=== PATIENT | male | born 1965 | race Caucasian/White ===

== ENCOUNTER 2019-12-12 08:53 | Inpatient (IN) | payer OTHER ==
[~2019-12-12] VITALS: Ht 177.8 cm; Wt 98.1 kg
[2019-12-12] MEDS ORDERED: FUROSEMIDE 40 MG/4 ML VIAL IV ONE (09:15)
[2019-12-12 09:49] LABS: Basophils # (auto) 0.1 10 ^3/uL (0-0.2); Basophils % (auto) 0.8 % (0.0-2.0); Eosinophils # (auto) 0.3 10 ^3/uL (0-0.8); Eosinophils % (auto) 3.2 % (0.0-7.0); Hematocrit 47.7 % (41.0-53.0); Hemoglobin 15.7 g/dL (13.5-17.5); Lymphocytes # (auto) 1.5 10 ^3/uL (0.4-5.4); Lymphocytes % (auto) 16.9 % (10.0-50.0); Mean Corpuscular Volume 94.1 fL (80.0-100.0); Monocytes # (auto) 0.7 10 ^3/uL (0-1.3); Monocytes % (auto) 7.4 % (0.0-12.0); Neutrophils # (auto) 6.4 10 ^3/uL (1.6-8.6); Neutrophils % (auto) 71.7 % (37.0-80.0); Platelet Count (auto) 184 10^3/uL (140-450); Red Blood Cells 5.07 10^6/uL (4.5-5.90); Red Cell Distribution Width 13.6 % (11.8-14.3); White Blood Cell 8.9 10^3/uL (4.4-10.8)
[2019-12-12 10:05] LABS: Potassium 3.6 mmol/L (3.5-5.1)
[2019-12-12 10:15] LABS: Albumin 3.5 g/dL (3.4-5.0); BUN/Creatinine Ratio 17.3; Bilirubin, Total 0.9 mg/dL (0.2-1.0); Calcium 8.2 mg/dL (8.5-10.1); Total Protein 7.2 g/dL (6.4-8.2)
[2019-12-12] MEDS ORDERED: cloNIDine HCL 0.1 MG TAB PO ONE (10:30)
[2019-12-12 12:16] LABS: Urine WBC None Seen /hpf (0 - 3)
[2019-12-12 12:30] LABS: Urine Bacteria FEW /hpf (None Seen); Urine Blood Negative /uL (Negative); Urine Specific Gravity 1.005 (1.001-1.035)
[2019-12-12 12:49] LABS: Amphetamine Screen, Urine POSITIVE (NEGATIVE); Barbiturate Scree,Urine NEGATIVE (NEGATIVE); Benzodiazephine Screen, Urine NEGATIVE (NEGATIVE); Cannabinoid Screen, Urine NEGATIVE (NEGATIVE); Cocaine Screen, Urine NEGATIVE (NEGATIVE); Phencyclidine Screen, Urine NEGATIVE (NEGATIVE)
[2019-12-12 12:57] LABS: Opiate Scree,Urine NEGATIVE (NEGATIVE)
[2019-12-12 13:19] LABS: Alcohol, Urine < 3.0 mg/dL (0-10)
[2019-12-12] MEDS ORDERED: DEXTROSE (50%) 50ML SYRG IV PRN (14:15)
[2019-12-12] MEDS ORDERED: levoFLOXacin 500MG 100 ML IV ONE (14:15)
[2019-12-12] MEDS ORDERED: PROMETHAZINE HCL 25 MG/ML 1ML IV PRN (14:15)
[2019-12-12] MEDS ORDERED: MORPHINE SULF INJ 2 MG/ML SYRINGE 1ML IV PRN (14:15)
[2019-12-12] MEDS ORDERED: LACTULOSE 20Gm/30ML SOLN PO PRN ×2 (14:15)
[2019-12-12] MEDS ORDERED: ACETAMINOPHEN 500 MG TAB PO PRN (14:15)
[2019-12-12] MEDS ORDERED: traMADol HCL 50 MG TAB PO PRN (14:15)
[2019-12-12] MEDS ORDERED: NITROGLYCERIN 0.4 MG SL TAB SL PRN (14:15)
[2019-12-12] MEDS ORDERED: ASPirin 81 mg TAB PO ONE (14:50)
[2019-12-12 16:54] VITALS: BP 159/96
[2019-12-12] MEDS: InsuLIN REG 1unit/0.01ml Soln (100units/ml) SC SCH ×2 (17:00→22:00)
[2019-12-12 17:05] VITALS: BP 159/96
[2019-12-12] MEDS ORDERED: LABETALOL HCL 5 MG/ML 4ML SYRINGE IV PRN (17:30)
[2019-12-12] MEDS: ACCU-CHEK COMFORT CURVE STRIP VI SCH ×2 (17:41→22:00)
[2019-12-12] MEDS ORDERED: METF-370 PO (18:15)
[2019-12-12 22:00] VITALS: BP 159/94
[2019-12-12] MEDS: SODIUM CHLOR 0.9% PF (SALINE LOCK) 10ML VIAL/SYR IV SCH (22:00)
[2019-12-12] MEDS: FAMOTIDINE 20 MG TAB PO SCH (22:00)
[2019-12-12] MEDS: ATORVASTATIN 20 MG TAB PO SCH (22:00)
[2019-12-12] MEDS: CARVEDILOL 3.125 MG TAB PO SCH (22:00)
[2019-12-12] MEDS: FUROSEMIDE 40 MG/4 ML VIAL IV SCH (22:00)
[2019-12-13] MEDS: SODIUM CHLOR 0.9% PF (SALINE LOCK) 10ML VIAL/SYR IV SCH ×3 (06:00→22:00)
[2019-12-13] MEDS: FUROSEMIDE 40 MG/4 ML VIAL IV SCH ×2 (06:00→17:58)
[2019-12-13 06:30] VITALS: BP 152/100
[2019-12-13] MEDS: InsuLIN REG 1unit/0.01ml Soln (100units/ml) SC SCH ×4 (06:52→22:00)
[2019-12-13] MEDS: ACCU-CHEK COMFORT CURVE STRIP VI SCH ×4 (06:52→22:00)
[2019-12-13 09:00] VITALS: BP 139/89
[2019-12-13] MEDS: ENOXAPARIN SOD 40 MG/0.4 ML SYRINGE SC SCH (10:00)
[2019-12-13] MEDS ORDERED: ENOXAPARIN SOD 40 MG/0.4 ML SYRINGE SC SCH (10:00)
[2019-12-13] MEDS: NITROGLYCERIN 0.2MG/HR TOPICAL PATCH TD SCH (10:00)
[2019-12-13] MEDS: FAMOTIDINE 20 MG TAB PO SCH ×2 (10:31→22:00)
[2019-12-13] MEDS: CARVEDILOL 3.125 MG TAB PO SCH ×2 (10:32→22:30)
[2019-12-13] MEDS: ENALAPRIL MALEATE 2.5 MG TAB PO SCH (10:32)
[2019-12-13] MEDS: ASPirin 81 mg TAB PO SCH (10:32)
[2019-12-13] MEDS: POTASSIUM CHL 20 Meq TABLET PO SCH (10:33)
[2019-12-13] MEDS: levoFLOXacin 500MG 100 ML IV SCH (12:24)
[2019-12-13 13:00] VITALS: BP 146/88
[2019-12-13 17:00] VITALS: BP 141/83
[2019-12-13 22:00] VITALS: BP 128/74
[2019-12-13] MEDS: ATORVASTATIN 20 MG TAB PO SCH (22:00)
[2019-12-14 05:48] VITALS: BP 156/93
[2019-12-14] MEDS: FUROSEMIDE 40 MG/4 ML VIAL IV SCH ×2 (05:58→17:17)
[2019-12-14] MEDS: SODIUM CHLOR 0.9% PF (SALINE LOCK) 10ML VIAL/SYR IV SCH ×3 (05:59→22:00)
[2019-12-14] MEDS: InsuLIN REG 1unit/0.01ml Soln (100units/ml) SC SCH ×4 (06:34→22:00)
[2019-12-14] MEDS: ACCU-CHEK COMFORT CURVE STRIP VI SCH ×4 (06:35→22:00)
[2019-12-14 08:56] VITALS: BP 155/93
[2019-12-14] MEDS: CARVEDILOL 3.125 MG TAB PO SCH ×2 (10:00→22:00)
[2019-12-14] MEDS: ENALAPRIL MALEATE 2.5 MG TAB PO SCH (10:00)
[2019-12-14] MEDS: NITROGLYCERIN 0.2MG/HR TOPICAL PATCH TD SCH (10:00)
[2019-12-14] MEDS: FAMOTIDINE 20 MG TAB PO SCH ×2 (10:00→22:00)
[2019-12-14] MEDS: ASPirin 81 mg TAB PO SCH (10:00)
[2019-12-14] MEDS: ENOXAPARIN SOD 40 MG/0.4 ML SYRINGE SC SCH (10:00)
[2019-12-14] MEDS: levoFLOXacin 500MG 100 ML IV SCH (10:00)
[2019-12-14] MEDS: POTASSIUM CHL 20 Meq TABLET PO SCH (10:00)
[2019-12-14 12:29] VITALS: BP 147/99
[2019-12-14 16:53] VITALS: BP 144/91
[2019-12-14 22:00] VITALS: BP 145/90
[2019-12-14] MEDS: ATORVASTATIN 20 MG TAB PO SCH (22:00)
[2019-12-15] MEDS: SODIUM CHLOR 0.9% PF (SALINE LOCK) 10ML VIAL/SYR IV SCH (06:00)
[2019-12-15] MEDS: FUROSEMIDE 40 MG/4 ML VIAL IV SCH (06:00)
[2019-12-15] MEDS: InsuLIN REG 1unit/0.01ml Soln (100units/ml) SC SCH (06:45)
[2019-12-15] MEDS: ACCU-CHEK COMFORT CURVE STRIP VI SCH (06:46)
[2019-12-15] MEDS ORDERED: IODIXANOL 320MG/ML 100ML BTL IV ONE (07:54)
[2019-12-15 09:00] VITALS: BP 142/93
== END 2019-12-15 11:00 | disposition left against medical advice (07) | DRG 194 ==
LOC: ER 08:53 → TELE 08:54 → TELE-WESTW 16:40
PROVIDERS: ADMIT Internal Medicine; ATTEND Internal Medicine
DX: I11.0 Hypertensive heart disease with heart failure (principal); E11.21 Type 2 diabetes mellitus with diabetic nephropathy; E11.51 Type 2 diabetes mellitus with diabetic peripheral angiopathy without gangrene; I50.43 Acute on chronic combined systolic (congestive) and diastolic (congestive) heart failure; E78.5 Hyperlipidemia, unspecified; J98.11 Atelectasis; F15.10 Other stimulant abuse, uncomplicated; E66.9 Obesity, unspecified; Z91.19 Patient's noncompliance with other medical treatment and regimen; F17.210 Nicotine dependence, cigarettes, uncomplicated; E11.65 Type 2 diabetes mellitus with hyperglycemia; I20.0 Unstable angina; Z53.29 Procedure and treatment not carried out because of patient's decision for other reasons; Z80.42 Family history of malignant neoplasm of prostate; Z82.49 Family history of ischemic heart disease and other diseases of the circulatory system; J18.9 Pneumonia, unspecified organism; Z68.28 Body mass index [BMI] 28.0-28.9, adult
CPT/HCPCS: 36415; 71045; 71046; 80053; 80307; 81001; 82550; 82962; 83036; 83880; 84484; 85025; 85379; 85652; 86141; 93005; 93926; 96365; 96366; 96375; 99291; G0378; J1956; Q9967

== ENCOUNTER 2020-02-18 14:45 | Emergency (ER) | payer OTHER ==
[~2020-02-18] VITALS: Ht 177.8 cm; Wt 90.7 kg
[~2020-02-18 14:45] MED LIST: METF-370 PO
[2020-02-18 15:33] VITALS: BP 154/86
[2020-02-18] MEDS ORDERED: BENZOCAINE (DENTAL) 20 % SPRAY 60ML MT ONE (16:15)
== END 2020-02-18 16:23 | disposition home or self-care (01) ==
LOC: ER 14:45
DX: K04.7 Periapical abscess without sinus (principal); K02.9 Dental caries, unspecified; E11.9 Type 2 diabetes mellitus without complications; I10 Essential (primary) hypertension; F17.210 Nicotine dependence, cigarettes, uncomplicated

== ENCOUNTER 2020-07-17 08:47 | Emergency (ER) | payer OTHER ==
[~2020-07-17] VITALS: Ht 177.8 cm; Wt 90.7 kg
[2020-07-17 08:50] VITALS: BP 173/97
[2020-07-17] MEDS ORDERED: ACETAMINOPHEN 325 MG TAB PO ONE (09:45)
[2020-07-17] MEDS ORDERED: cefTRIAXone SOD 1,000 MG VL IM ONE (09:45)
== END 2020-07-17 10:25 | disposition home or self-care (01) ==
LOC: ER 08:47
DX: L66.2 Folliculitis decalvans (principal); E11.9 Type 2 diabetes mellitus without complications; I10 Essential (primary) hypertension; F17.210 Nicotine dependence, cigarettes, uncomplicated
CPT/HCPCS: 96372; 99283; J0696

== ENCOUNTER 2021-01-20 14:27 | Inpatient (IN) | payer OTHER ==
[~2021-01-20] VITALS: Ht 177.8 cm; Wt 85.5 kg
[2021-01-20] MEDS ORDERED: ACETAMINOPHEN 325 MG TAB PO ONE (15:00)
[2021-01-20 15:07] LABS: Basophils # (auto) 0.1 10 ^3/uL (0-0.2); Basophils % (auto) 0.5 % (0.0-2.0); Eosinophils # (auto) 0 10 ^3/uL (0-0.8); Eosinophils % (auto) 0.3 % (0.0-7.0); Hematocrit 51.7 % (41.0-53.0); Hemoglobin 17.2 g/dL (13.5-17.5); Lymphocytes # (auto) 0.8 10 ^3/uL (0.4-5.4); Lymphocytes % (auto) 6.9 % (10.0-50.0); Mean Corpuscular Hemoglobin 32.5 pg (28.0-32.0); Mean Corpuscular Hgb Conc. 33.3 g/dL (32.0-36.0); Mean Corpuscular Volume 97.6 fL (80.0-100.0); Monocytes # (auto) 0.9 10 ^3/uL (0-1.3); Monocytes % (auto) 7.9 % (0.0-12.0); Neutrophils % (auto) 84.4 % (37.0-80.0); White Blood Cell 11.9 10^3/uL (4.4-10.8)
[2021-01-20 15:21] LABS: Amphetamine Screen, Urine POSITIVE (NEGATIVE); Barbiturate Scree,Urine NEGATIVE (NEGATIVE); Benzodiazephine Screen, Urine NEGATIVE (NEGATIVE); Cannabinoid Screen, Urine NEGATIVE (NEGATIVE); Cocaine Screen, Urine NEGATIVE (NEGATIVE); Opiate Scree,Urine NEGATIVE (NEGATIVE); Phencyclidine Screen, Urine NEGATIVE (NEGATIVE)
[2021-01-20 15:29] LABS: Urine Bacteria FEW /hpf (None Seen); Urine Blood Negative /uL (Negative); Urine Specific Gravity 1.023 (1.001-1.035); Urine WBC <1 /hpf (0 - 3)
[2021-01-20 15:34] LABS: Albumin 2.9 g/dL (3.4-5.0); Calcium 8.2 mg/dL (8.5-10.1)
[2021-01-20] MEDS: ASPirin 81 mg TAB PO ONE ×2 (15:41→16:09)
[2021-01-20 15:43] LABS: BUN/Creatinine Ratio 6.3; Bilirubin, Total 1.2 mg/dL (0.2-1.0); Total Protein 7.8 g/dL (6.4-8.2)
[2021-01-20] MEDS ORDERED: POTASSIUM CHL 20 Meq TABLET PO ONE (15:45)
[2021-01-20] MEDS ORDERED: InsuLIN REG 1unit/0.01ml Soln (100units/ml) IV ONE (16:15)
[2021-01-20] MEDS ORDERED: MORPHINE SULF INJ 2 MG/ML SYRINGE 1ML IV PRN ×3 (17:45→19:15)
[2021-01-20] MEDS ORDERED: CALCIUM GLUC 1,000mg/50ml-NS 50 ML IV ONE (17:45)
[2021-01-20] MEDS ORDERED: POTASSIUM CHL 20MEQ/100ML 100 ML IV SCH (17:45)
[2021-01-20] MEDS ORDERED: ENOXAPARIN SOD 40 MG/0.4 ML SYRINGE SC ONE (17:45)
[2021-01-20] MEDS ORDERED: DEXTROSE (50%) 50ML SYRG IV PRN (17:45)
[2021-01-20] MEDS ORDERED: MAGNESIUM SULFATE 1GM/100ML 100 ML IV ONE (17:45)
[2021-01-20] MEDS ORDERED: cefTRIAXone 1GM/50ML D5W 50 ML IV ONE (17:45)
[2021-01-20] MEDS ORDERED: SODIUM CHLORIDE 0.9% 2,000 ML IV ONE (17:45)
[2021-01-20] MEDS ORDERED: LACTATED RINGER'S 1,000 ML IV ONE (17:45)
[2021-01-20] MEDS ORDERED: POTASSIUM CHL 20MEQ/100ML 100 ML IV ONE (17:45)
[2021-01-20] MEDS ORDERED: NITROGLYCERIN 0.4 MG SL TAB SL PRN ×2 (17:45→19:15)
[2021-01-20] MEDS: InsuLIN REG 1unit/0.01ml Soln (100units/ml) SC SCH (18:00)
[2021-01-20] MEDS: ACCU-CHEK COMFORT CURVE STRIP VI SCH (18:00)
[2021-01-20] MEDS ORDERED: SIMV10TA84 PO (18:20)
[2021-01-20] MEDS ORDERED: ATEN100T PO (18:20)
[2021-01-20] MEDS ORDERED: ENAL2.5T7 PO (18:20)
[2021-01-20] MEDS ORDERED: ASPI-498 PO (18:20)
[2021-01-20] MEDS ORDERED: LORazepam 0.5 MG TAB PO PRN (19:15)
[2021-01-20] MEDS ORDERED: DOCUSATE SOD 100 MG CAP PO PRN (19:15)
[2021-01-20] MEDS ORDERED: hydrALAZINE HCL 20 MG/ML VL IV PRN (19:15)
[2021-01-20] MEDS ORDERED: CLINDAMYCIN 300MG IV 50 ML IV ONE (19:15)
[2021-01-20] MEDS ORDERED: BENAZEPRIL HCL 10 MG TAB PO ONE (19:15)
[2021-01-20] MEDS ORDERED: VITAMINS A & D (TOPICAL) OINT 5GM TOP PRN (19:15)
[2021-01-20] MEDS ORDERED: ACETAMINOPHEN 325 MG TAB PO PRN (19:15)
[2021-01-20] MEDS ORDERED: ALUM & MAG HYDROX-SIMETH LIQ(MAALOX) 30 ML PO PRN (19:15)
[2021-01-20] MEDS ORDERED: ONDANSETRON HCL 4 MG/2 ML VIAL IV PRN (19:15)
[2021-01-20] MEDS ORDERED: VITAMINS A & D (TOPICAL) OINT 5GM TOP ONE (19:15)
[2021-01-20] MEDS ORDERED: ATORVASTATIN 20 MG TAB PO ONE (19:15)
[2021-01-20] MEDS ORDERED: FOLIC ACID 1 MG TAB PO ONE (19:30)
[2021-01-20] MEDS ORDERED: FAMOTIDINE (10MG/ML) 2ML VL IV ONE (19:30)
[2021-01-20] MEDS ORDERED: MULTIPLE VITAMIN TAB PO ONE (19:30)
[2021-01-20] MEDS ORDERED: THIAMINE 100mg/ml INJ (200mg/2ml VIAL) IV ONE (19:30)
[2021-01-20 20:36] LABS: Cholesterol 158 mg/dL (< 200)
[2021-01-20 20:38] LABS: HDL Cholesterol 46 mg/dL (40-59); LDL Cholesterol 99 mg/dL (< 100); Triglycerides 71 mg/dL (< 150)
[2021-01-20] MEDS: chlordiazePOXIDE HCL 25 MG CAP PO SCH (20:41)
[2021-01-20] MEDS: SOD CHL 0.9%/ KCL 20MEQ 1,000 ML IV SCH (23:43)
[2021-01-21] MEDS: ACCU-CHEK COMFORT CURVE STRIP VI SCH ×4 (00:35→17:57)
[2021-01-21] MEDS: InsuLIN REG 1unit/0.01ml Soln (100units/ml) SC SCH ×4 (00:55→18:00)
[2021-01-21] MEDS: POTASSIUM CHL 20MEQ/100ML 100 ML IV SCH ×2 (01:30→03:30)
[2021-01-21] MEDS: chlordiazePOXIDE HCL 25 MG CAP PO SCH ×4 (03:27→21:58)
[2021-01-21] MEDS: CLINDAMYCIN 300MG IV 50 ML IV SCH ×3 (06:15→21:56)
[2021-01-21] MEDS: SOD CHL 0.9%/ KCL 20MEQ 1,000 ML IV SCH ×2 (09:58→16:25)
[2021-01-21] MEDS: FAMOTIDINE (10MG/ML) 2ML VL IV SCH ×2 (10:00→21:39)
[2021-01-21] MEDS: cefTRIAXone 1GM/50ML D5W 50 ML IV SCH (10:23)
[2021-01-21] MEDS: ASPirin 81 mg TAB PO SCH (12:43)
[2021-01-21] MEDS: THIAMINE HCL 100 MG TAB PO SCH (12:44)
[2021-01-21] MEDS: FOLIC ACID 1 MG TAB PO SCH (12:44)
[2021-01-21] MEDS: MULTIPLE VITAMIN TAB PO SCH (12:45)
[2021-01-21] MEDS: BENAZEPRIL HCL 10 MG TAB PO SCH (12:45)
[2021-01-21] MEDS: ENOXAPARIN SOD 40 MG/0.4 ML SYRINGE SC SCH (12:46)
[2021-01-21] MEDS: BUMETANIDE 2.5mg/10ml (0.25 mg/ml) INJ IV SCH (18:23)
[2021-01-21] MEDS: ATORVASTATIN 20 MG TAB PO SCH (21:40)
[2021-01-21] MEDS: CARVEDILOL 3.125 MG TAB PO SCH ×2 (21:40→21:58)
[2021-01-21 22:05] LABS: Urine Bacteria NONE SEEN /hpf (None Seen); Urine Blood Negative /uL (Negative); Urine Specific Gravity 1.007 (1.001-1.035); Urine WBC <1 /hpf (0 - 3)
[2021-01-21 22:22] VITALS: BP 133/81
[2021-01-22] MEDS: SOD CHL 0.9%/ KCL 20MEQ 1,000 ML IV SCH ×4 (00:37→19:10)
[2021-01-22 05:30] VITALS: BP 135/94
[2021-01-22] MEDS: BUMETANIDE 2.5mg/10ml (0.25 mg/ml) INJ IV SCH ×2 (05:45→18:45)
[2021-01-22] MEDS: ACCU-CHEK COMFORT CURVE STRIP VI SCH ×4 (05:46→18:45)
[2021-01-22] MEDS: CLINDAMYCIN 300MG IV 50 ML IV SCH ×3 (05:46→22:00)
[2021-01-22] MEDS: InsuLIN REG 1unit/0.01ml Soln (100units/ml) SC SCH ×4 (05:54→18:45)
[2021-01-22] MEDS: HYDROcodone-ACET 5/325MG TAB PO PRN (11:58)
[2021-01-22] MEDS: FAMOTIDINE (10MG/ML) 2ML VL IV SCH ×2 (12:41→22:00)
[2021-01-22] MEDS: FOLIC ACID 1 MG TAB PO SCH (12:41)
[2021-01-22] MEDS: ASPirin 81 mg TAB PO SCH (12:41)
[2021-01-22] MEDS: cefTRIAXone 1GM/50ML D5W 50 ML IV SCH (12:41)
[2021-01-22] MEDS: THIAMINE HCL 100 MG TAB PO SCH (12:42)
[2021-01-22] MEDS: CARVEDILOL 3.125 MG TAB PO SCH ×2 (12:42→22:00)
[2021-01-22] MEDS: BENAZEPRIL HCL 10 MG TAB PO SCH (12:43)
[2021-01-22] MEDS: chlordiazePOXIDE HCL 25 MG CAP PO SCH (12:43)
[2021-01-22] MEDS: MULTIPLE VITAMIN TAB PO SCH (12:43)
[2021-01-22] MEDS: ENOXAPARIN SOD 40 MG/0.4 ML SYRINGE SC SCH (12:43)
[2021-01-22 13:00] VITALS: BP 131/93
[2021-01-22 17:00] VITALS: BP 101/66
[2021-01-22] MEDS ORDERED: chlordiazePOXIDE HCL 25 MG CAP PO SCH (22:00)
[2021-01-22] MEDS: ATORVASTATIN 20 MG TAB PO SCH (22:00)
[2021-01-23] MEDS: HYDROcodone-ACET 5/325MG TAB PO PRN (02:29)
[2021-01-23] MEDS: SOD CHL 0.9%/ KCL 20MEQ 1,000 ML IV SCH (03:30)
[2021-01-23 05:00] VITALS: BP 117/73
[2021-01-23] MEDS: BUMETANIDE 2.5mg/10ml (0.25 mg/ml) INJ IV SCH (06:40)
[2021-01-23] MEDS: ACCU-CHEK COMFORT CURVE STRIP VI SCH ×2 (06:40)
[2021-01-23] MEDS: CLINDAMYCIN 300MG IV 50 ML IV SCH (06:40)
[2021-01-23] MEDS: InsuLIN REG 1unit/0.01ml Soln (100units/ml) SC SCH ×2 (06:41)
[2021-01-23] MEDS: cefTRIAXone 1GM/50ML D5W 50 ML IV SCH (09:00)
[2021-01-24] MEDS ORDERED: chlordiazePOXIDE HCL 25 MG CAP PO SCH (07:00)
== END 2021-01-23 09:09 | disposition left against medical advice (07) | DRG 720 ==
LOC: ER 14:27 → TELE 17:40 → WEST WING 01-21 07:47 → TELE-WESTW 01-21 07:48
PROVIDERS: ADMIT Hospitalist; ATTEND Family Medicine
DX: A41.9 Sepsis, unspecified organism (principal); J69.0 Pneumonitis due to inhalation of food and vomit; E11.00 Type 2 diabetes mellitus with hyperosmolarity without nonketotic hyperglycemic-hyperosmolar coma (NKHHC); N17.0 Acute kidney failure with tubular necrosis; I50.43 Acute on chronic combined systolic (congestive) and diastolic (congestive) heart failure; E43 Unspecified severe protein-calorie malnutrition; I42.6 Alcoholic cardiomyopathy; I13.0 Hypertensive heart and chronic kidney disease with heart failure and stage 1 through stage 4 chronic kidney disease, or unspecified chronic kidney disease; I50.82 Biventricular heart failure; I42.7 Cardiomyopathy due to drug and external agent; E11.65 Type 2 diabetes mellitus with hyperglycemia; E86.0 Dehydration; N18.2 Chronic kidney disease, stage 2 (mild); F10.229 Alcohol dependence with intoxication, unspecified; E87.6 Hypokalemia; L29.9 Pruritus, unspecified; I16.9 Hypertensive crisis, unspecified; E11.22 Type 2 diabetes mellitus with diabetic chronic kidney disease; E78.00 Pure hypercholesterolemia, unspecified; E78.5 Hyperlipidemia, unspecified; F10.239 Alcohol dependence with withdrawal, unspecified; F12.90 Cannabis use, unspecified, uncomplicated; F15.10 Other stimulant abuse, uncomplicated; F17.210 Nicotine dependence, cigarettes, uncomplicated; Z79.4 Long term (current) use of insulin; Z85.46 Personal history of malignant neoplasm of prostate; Z91.19 Patient's noncompliance with other medical treatment and regimen; Z53.29 Procedure and treatment not carried out because of patient's decision for other reasons; Z71.6 Tobacco abuse counseling; Z20.822 Contact with and (suspected) exposure to COVID-19
CPT/HCPCS: 36415; 71045; 80053; 80061; 80307; 81001; 82728; 82962; 83036; 84132; 84484; 85025; 85379; 87040; 87086; 87426; 93005; 93306; 96361; 96374; G0378; J0696; J1815; J3480; J3490

== ENCOUNTER 2021-03-23 00:36 | Emergency (ER) | payer OTHER ==
[~2021-03-23] VITALS: Ht 177.8 cm; Wt 90.7 kg
[2021-03-23 00:36] VITALS: BP 150/116
[~2021-03-23 00:36] MED LIST changes: +ASPI-498 PO; +ATEN100T PO; +ENAL2.5T7 PO; +SIMV10TA84 PO
[2021-03-23 02:42] LABS: Basophils # (auto) 0.1 10 ^3/uL (0-0.2); Basophils % (auto) 0.7 % (0.0-2.0); Eosinophils # (auto) 0.2 10 ^3/uL (0-0.8); Eosinophils % (auto) 1.9 % (0.0-7.0); Hematocrit 51.5 % (41.0-53.0); Hemoglobin 17.2 g/dL (13.5-17.5); Lymphocytes # (auto) 1.8 10 ^3/uL (0.4-5.4); Lymphocytes % (auto) 21.7 % (10.0-50.0); Mean Corpuscular Hemoglobin 33.6 pg (28.0-32.0); Mean Corpuscular Hgb Conc. 33.4 g/dL (32.0-36.0); Mean Corpuscular Volume 100.7 fL (80.0-100.0); Monocytes # (auto) 0.7 10 ^3/uL (0-1.3); Monocytes % (auto) 8.2 % (0.0-12.0); Neutrophils # (auto) 5.7 10 ^3/uL (1.6-8.6); Neutrophils % (auto) 67.5 % (37.0-80.0); Nucleated Red Blood Cells % 0.1 %; Red Blood Cells 5.12 10^6/uL (4.5-5.90); Red Cell Distribution Width 17.2 % (11.8-14.3); White Blood Cell 8.4 10^3/uL (4.4-10.8)
[2021-03-23 02:53] LABS: INR 1.16 (0.9-1.15); Partial Thromboplastin Time 27.6 sec (23.6-33.0)
[2021-03-23 03:42] LABS: Albumin 3.2 g/dL (3.4-5.0); Calcium 9.1 mg/dL (8.5-10.1); Potassium 4.3 mmol/L (3.5-5.1)
[2021-03-23 03:50] LABS: Bilirubin, Total 1.1 mg/dL (0.2-1.0); Total Protein 7.7 g/dL (6.4-8.2)
== END 2021-03-23 03:41 | disposition left against medical advice (07) ==
LOC: ER 00:36
DX: R07.89 Other chest pain (principal); Z53.21 Procedure and treatment not carried out due to patient leaving prior to being seen by health care provider
CPT/HCPCS: 36415; 71045; 80053; 83880; 84484; 85025; 85610; 85730; 93005; J7030

== ENCOUNTER 2021-03-23 06:13 | Emergency (ER) | payer OTHER ==
[~2021-03-23] VITALS: Ht 177.8 cm; Wt 88.5 kg
[2021-03-23 07:45] VITALS: BP 131/93
[2021-03-23] MEDS ORDERED: SODIUM CHLORIDE 0.9% 1,000 ML IV ONE (08:00)
[2021-03-23] MEDS ORDERED: ASPirin 81 mg TAB PO ONE (08:00)
[2021-03-23] MEDS ORDERED: FUROSEMIDE 40 MG/4 ML VIAL IV ONE (08:00)
[2021-03-23] MEDS ORDERED: METOPROLOL TARTRATE 1MG/1ML-5ML VIAL IV ONE (08:00)
[2021-03-23] MEDS ORDERED: SPIRONOLACTONE 25 MG TAB PO ONE (08:00)
== END 2021-03-23 09:33 | disposition left against medical advice (07) ==
LOC: ER 06:13
DX: R07.89 Other chest pain (principal); R60.9 Edema, unspecified; F15.10 Other stimulant abuse, uncomplicated; F10.10 Alcohol abuse, uncomplicated; R77.8 Other specified abnormalities of plasma proteins; R09.89 Other specified symptoms and signs involving the circulatory and respiratory systems; E11.65 Type 2 diabetes mellitus with hyperglycemia; E46 Unspecified protein-calorie malnutrition; I10 Essential (primary) hypertension; E78.5 Hyperlipidemia, unspecified; F17.210 Nicotine dependence, cigarettes, uncomplicated; Z68.28 Body mass index [BMI] 28.0-28.9, adult; Z79.82 Long term (current) use of aspirin; Z79.899 Other long term (current) drug therapy; Y90.9 Presence of alcohol in blood, level not specified
CPT/HCPCS: 36415; 84443; 84484; 93005; 96361; 96374; 96375; 99284; J1940; J7030

== ENCOUNTER 2021-03-24 04:07 | Inpatient (IN) | payer OTHER ==
[~2021-03-24] VITALS: Ht 177.8 cm; Wt 78.8 kg
[2021-03-24 05:50] LABS: Albumin 3.1 g/dL (3.4-5.0); Calcium 8.7 mg/dL (8.5-10.1); INR 1.17 (0.9-1.15); Partial Thromboplastin Time 27.1 sec (23.6-33.0); Potassium 4.1 mmol/L (3.5-5.1)
[2021-03-24 05:52] LABS: Basophils # (auto) 0.1 10 ^3/uL (0-0.2); Basophils % (auto) 0.9 % (0.0-2.0); Eosinophils # (auto) 0.2 10 ^3/uL (0-0.8); Eosinophils % (auto) 2.3 % (0.0-7.0); Hematocrit 50.1 % (41.0-53.0); Hemoglobin 16.9 g/dL (13.5-17.5); Lymphocytes # (auto) 1.5 10 ^3/uL (0.4-5.4); Lymphocytes % (auto) 20.1 % (10.0-50.0); Mean Corpuscular Hemoglobin 33.8 pg (28.0-32.0); Mean Corpuscular Hgb Conc. 33.8 g/dL (32.0-36.0); Monocytes # (auto) 0.7 10 ^3/uL (0-1.3); Monocytes % (auto) 8.9 % (0.0-12.0); Neutrophils # (auto) 5.2 10 ^3/uL (1.6-8.6); Neutrophils % (auto) 67.8 % (37.0-80.0); Nucleated Red Blood Cells % 0.1 %; Red Blood Cells 5.01 10^6/uL (4.5-5.90); Red Cell Distribution Width 17.2 % (11.8-14.3); White Blood Cell 7.6 10^3/uL (4.4-10.8)
[2021-03-24 05:55] LABS: BUN/Creatinine Ratio 13.7; Bilirubin, Total 0.8 mg/dL (0.2-1.0); Total Protein 7.5 g/dL (6.4-8.2)
[2021-03-24] MEDS ORDERED: FUROSEMIDE 100 MG/10ML VIAL IV ONE (12:30)
[2021-03-24] MEDS ORDERED: MORPHINE SULFATE INJECTION 2 MG/ML SYRG IV PRN ×3 (12:30→13:00)
[2021-03-24] MEDS ORDERED: NITROGLYCERIN 0.4 MG SL TAB SL PRN ×2 (12:30→13:00)
[2021-03-24] MEDS ORDERED: DOXYCYCLINE 100MG/250ML 250 ML IV ONE (13:00)
[2021-03-24] MEDS ORDERED: ATORVASTATIN 20 MG TAB PO ONE (13:00)
[2021-03-24] MEDS ORDERED: LORazepam 0.5 MG TAB PO PRN (13:00)
[2021-03-24] MEDS ORDERED: ALUM & MAG HYDROX-SIMETH LIQ(MAALOX) 30 ML PO PRN (13:00)
[2021-03-24] MEDS ORDERED: DOCUSATE SOD 100 MG CAP PO PRN (13:00)
[2021-03-24] MEDS ORDERED: IPRATROPIUM BROM 0.5 MG/2.5ML INH SOL NEB ONE (13:00)
[2021-03-24] MEDS ORDERED: ACETAMINOPHEN 325 MG TAB PO PRN (13:00)
[2021-03-24] MEDS ORDERED: DEXTROSE (50%) 50ML SYRG IV PRN (13:00)
[2021-03-24] MEDS ORDERED: ONDANSETRON HCL 4 MG/2 ML VIAL IV PRN (13:00)
[2021-03-24] MEDS: InsuLIN REG 1unit/0.01ml Soln (100units/ml) SC SCH ×2 (17:32→22:47)
[2021-03-24] MEDS: ACCU-CHEK COMFORT CURVE STRIP VI SCH ×2 (17:33→22:47)
[2021-03-24] MEDS: IPRATROPIUM BROM 0.5 MG/2.5ML INH SOL NEB SCH ×2 (18:45→22:23)
[2021-03-24 20:53] VITALS: BP 133/96
[2021-03-24 22:26] VITALS: BP 144/99
[2021-03-24] MEDS: POTASSIUM CHL 20 Meq TABLET PO SCH (22:46)
[2021-03-24] MEDS: FUROSEMIDE 40 MG/4 ML VIAL IV SCH (22:46)
[2021-03-24] MEDS: METOPROLOL TARTRATE 25 MG TAB PO SCH (22:47)
[2021-03-25] MEDS: DOXYCYCLINE 100MG/250ML 250 ML IV SCH ×3 (01:24→16:16)
[2021-03-25] MEDS: IPRATROPIUM BROM 0.5 MG/2.5ML INH SOL NEB SCH (02:00)
[2021-03-25] MEDS ORDERED: IPRATROPIUM BROM 0.5 MG/2.5ML INH SOL NEB PRN (02:30)
[2021-03-25 02:40] VITALS: BP 144/99
[2021-03-25 05:00] VITALS: BP 131/92
[2021-03-25] MEDS: FUROSEMIDE 40 MG/4 ML VIAL IV SCH ×2 (06:43→18:30)
[2021-03-25] MEDS: InsuLIN REG 1unit/0.01ml Soln (100units/ml) SC SCH ×4 (06:44→22:00)
[2021-03-25] MEDS: ACCU-CHEK COMFORT CURVE STRIP VI SCH ×5 (06:44→22:30)
[2021-03-25 07:48] LABS: Basophils # (auto) 0.1 10 ^3/uL (0-0.2); Basophils % (auto) 0.9 % (0.0-2.0); Eosinophils # (auto) 0.2 10 ^3/uL (0-0.8); Eosinophils % (auto) 2.3 % (0.0-7.0); Hematocrit 53.1 % (41.0-53.0); Hemoglobin 17.6 g/dL (13.5-17.5); Lymphocytes # (auto) 1.7 10 ^3/uL (0.4-5.4); Lymphocytes % (auto) 20.3 % (10.0-50.0); Mean Corpuscular Hemoglobin 33.2 pg (28.0-32.0); Mean Corpuscular Hgb Conc. 33.2 g/dL (32.0-36.0); Monocytes # (auto) 0.8 10 ^3/uL (0-1.3); Monocytes % (auto) 9.3 % (0.0-12.0); Neutrophils # (auto) 5.5 10 ^3/uL (1.6-8.6); Neutrophils % (auto) 67.2 % (37.0-80.0); Nucleated Red Blood Cells % 0.1 %; Red Blood Cells 5.31 10^6/uL (4.5-5.90); Red Cell Distribution Width 16.9 % (11.8-14.3); White Blood Cell 8.2 10^3/uL (4.4-10.8)
[2021-03-25 08:00] LABS: Albumin 3.4 g/dL (3.4-5.0); Calcium 9.2 mg/dL (8.5-10.1); Magnesium 1.9 mg/dL (1.6-2.6); Potassium 4.2 mmol/L (3.5-5.1)
[2021-03-25 08:05] LABS: BUN/Creatinine Ratio 13.6; Bilirubin, Total 1.6 mg/dL (0.2-1.0); Phosphorus 2.8 mg/dL (2.5-4.90)
[2021-03-25 08:15] LABS: INR 1.24 (0.9-1.15); Partial Thromboplastin Time 28.7 sec (23.6-33.0)
[2021-03-25 09:00] VITALS: BP 117/79
[2021-03-25] MEDS ORDERED: ENOXAPARIN SOD 40 MG/0.4 ML SYRINGE SC SCH (10:00)
[2021-03-25] MEDS: DAPAGLIFLOZIN 5 MG TAB PO SCH (10:44)
[2021-03-25] MEDS: POTASSIUM CHL 20 Meq TABLET PO SCH ×3 (10:44→22:30)
[2021-03-25] MEDS: METOPROLOL TARTRATE 25 MG TAB PO SCH ×3 (10:45→22:30)
[2021-03-25] MEDS: ASPirin 81 mg TAB PO SCH (10:45)
[2021-03-25] MEDS: LISINOPRIL 10 MG TAB PO SCH (10:45)
[2021-03-25 13:00] VITALS: BP 128/96
[2021-03-25 16:54] VITALS: BP 122/86
[2021-03-25 19:17] LABS: Urine Bacteria NONE SEEN /hpf (None Seen); Urine Blood Negative /uL (Negative); Urine Specific Gravity 1.011 (1.001-1.035); Urine WBC 1 /hpf (0 - 3)
[2021-03-25 19:26] LABS: Amphetamine Screen, Urine POSITIVE (NEGATIVE); Barbiturate Scree,Urine NEGATIVE (NEGATIVE); Benzodiazephine Screen, Urine NEGATIVE (NEGATIVE); Cannabinoid Screen, Urine NEGATIVE (NEGATIVE); Cocaine Screen, Urine NEGATIVE (NEGATIVE); Opiate Scree,Urine NEGATIVE (NEGATIVE); Phencyclidine Screen, Urine NEGATIVE (NEGATIVE)
[2021-03-25 19:42] LABS: Alcohol, Urine < 3.0 mg/dL (0-10)
[2021-03-25] MEDS: ATORVASTATIN 20 MG TAB PO SCH ×2 (22:28→22:30)
[2021-03-25 22:31] VITALS: BP 123/94
[2021-03-26] MEDS: DOXYCYCLINE 100MG/250ML 250 ML IV SCH (01:00)
[2021-03-26 05:11] VITALS: BP 109/73
[2021-03-26] MEDS: ACCU-CHEK COMFORT CURVE STRIP VI SCH ×5 (06:49→21:12)
[2021-03-26] MEDS: FUROSEMIDE 40 MG/4 ML VIAL IV SCH ×3 (06:50→17:29)
[2021-03-26] MEDS: InsuLIN REG 1unit/0.01ml Soln (100units/ml) SC SCH ×4 (06:57→21:31)
[2021-03-26 09:00] VITALS: BP 130/64
[2021-03-26] MEDS: ASPirin 81 mg TAB PO SCH (09:33)
[2021-03-26] MEDS: POTASSIUM CHL 20 Meq TABLET PO SCH ×2 (09:33→21:11)
[2021-03-26] MEDS: METOPROLOL TARTRATE 25 MG TAB PO SCH ×2 (09:33→21:11)
[2021-03-26] MEDS: DAPAGLIFLOZIN 5 MG TAB PO SCH (09:33)
[2021-03-26] MEDS: LISINOPRIL 10 MG TAB PO SCH (09:34)
[2021-03-26 10:58] LABS: BUN/Creatinine Ratio 14.9; Potassium 3.9 mmol/L (3.5-5.1)
[2021-03-26] MEDS ORDERED: ALBUTEROL SULF 2.5 MG/0.5ML(0.5%) NEB SOLN NEB PRN (12:00)
[2021-03-26] MEDS ORDERED: IPRATROPIUM BROM 0.5 MG/2.5ML INH SOL NEB PRN (12:00)
[2021-03-26] MEDS ORDERED: ALPRAZolam 0.25 MG TAB PO PRN (12:00)
[2021-03-26 17:00] VITALS: BP 121/84
[2021-03-26] MEDS: ATORVASTATIN 20 MG TAB PO SCH (21:11)
[2021-03-26 22:00] VITALS: BP 106/73
[2021-03-27 05:00] VITALS: BP 113/77
[2021-03-27] MEDS: InsuLIN REG 1unit/0.01ml Soln (100units/ml) SC SCH ×4 (05:55→22:00)
[2021-03-27] MEDS: FUROSEMIDE 40 MG/4 ML VIAL IV SCH ×2 (05:55→17:00)
[2021-03-27] MEDS: ACCU-CHEK COMFORT CURVE STRIP VI SCH ×4 (05:56→21:55)
[2021-03-27] MEDS: METOPROLOL TARTRATE 25 MG TAB PO SCH ×2 (09:50→21:56)
[2021-03-27] MEDS: LISINOPRIL 10 MG TAB PO SCH (09:50)
[2021-03-27] MEDS: POTASSIUM CHL 20 Meq TABLET PO SCH ×2 (09:50→21:57)
[2021-03-27] MEDS: DAPAGLIFLOZIN 5 MG TAB PO SCH (09:50)
[2021-03-27] MEDS: ASPirin 81 mg TAB PO SCH (09:50)
[2021-03-27] MEDS ORDERED: FUROSEMIDE 20 MG/2 ML VIAL IV ONE (12:15)
[2021-03-27 14:23] LABS: Basophils # (auto) 0.1 10 ^3/uL (0-0.2); Basophils % (auto) 0.9 % (0.0-2.0); Eosinophils # (auto) 0.1 10 ^3/uL (0-0.8); Eosinophils % (auto) 1.9 % (0.0-7.0); Hematocrit 49.3 % (41.0-53.0); Hemoglobin 16.5 g/dL (13.5-17.5); Lymphocytes # (auto) 1.5 10 ^3/uL (0.4-5.4); Lymphocytes % (auto) 21.2 % (10.0-50.0); Mean Corpuscular Hemoglobin 33.4 pg (28.0-32.0); Mean Corpuscular Hgb Conc. 33.5 g/dL (32.0-36.0); Mean Corpuscular Volume 99.6 fL (80.0-100.0); Monocytes # (auto) 0.7 10 ^3/uL (0-1.3); Monocytes % (auto) 10.2 % (0.0-12.0); Neutrophils # (auto) 4.5 10 ^3/uL (1.6-8.6); Neutrophils % (auto) 65.8 % (37.0-80.0); Nucleated Red Blood Cells % 0.1 %; Red Blood Cells 4.95 10^6/uL (4.5-5.90); Red Cell Distribution Width 16.4 % (11.8-14.3); White Blood Cell 6.9 10^3/uL (4.4-10.8)
[2021-03-27 14:39] LABS: BUN/Creatinine Ratio 18.9; Calcium 9.2 mg/dL (8.5-10.1); Potassium 4.2 mmol/L (3.5-5.1)
[2021-03-27 17:00] VITALS: BP 113/65
[2021-03-27] MEDS: metFORMIN HYDROCHLORIDE 500 MG TAB PO SCH (17:00)
[2021-03-27] MEDS: ATORVASTATIN 20 MG TAB PO SCH (21:59)
[2021-03-27 22:00] VITALS: BP 124/85
[2021-03-27] MEDS: HYDROcodone-ACET 5/325MG TAB PO PRN (22:11)
[2021-03-28] VITALS (7 sets, daily range): BP systolic 99–120; BP diastolic 70–86
[2021-03-28] MEDS: ACCU-CHEK COMFORT CURVE STRIP VI SCH ×4 (06:10→22:00)
[2021-03-28] MEDS: FUROSEMIDE 40 MG/4 ML VIAL IV SCH (06:11)
[2021-03-28] MEDS: InsuLIN REG 1unit/0.01ml Soln (100units/ml) SC SCH ×5 (06:23→22:16)
[2021-03-28] MEDS: metFORMIN HYDROCHLORIDE 500 MG TAB PO SCH ×2 (09:33→18:16)
[2021-03-28] MEDS: POTASSIUM CHL 20 Meq TABLET PO SCH (09:33)
[2021-03-28] MEDS: DAPAGLIFLOZIN 5 MG TAB PO SCH (09:33)
[2021-03-28] MEDS: ASPirin 81 mg TAB PO SCH (09:33)
[2021-03-28] MEDS: METOPROLOL TARTRATE 25 MG TAB PO SCH ×2 (09:34→22:09)
[2021-03-28] MEDS: LISINOPRIL 10 MG TAB PO SCH (09:34)
[2021-03-28] MEDS ORDERED: MORPHINE SULFATE INJECTION 2 MG/ML SYRG IV PRN (11:00)
[2021-03-28] MEDS: HYDROcodone-ACET 5/325MG TAB PO PRN (22:00)
[2021-03-28] MEDS: ATORVASTATIN 20 MG TAB PO SCH (22:00)
[2021-03-29 05:28] VITALS: BP 121/81
[2021-03-29] MEDS: ACCU-CHEK COMFORT CURVE STRIP VI SCH ×2 (06:42→11:30)
[2021-03-29] MEDS: InsuLIN REG 1unit/0.01ml Soln (100units/ml) SC SCH ×2 (06:42→11:30)
[2021-03-29 08:59] LABS: BUN/Creatinine Ratio 22.3; Calcium 9.2 mg/dL (8.5-10.1); Potassium 3.9 mmol/L (3.5-5.1)
[2021-03-29 09:00] VITALS: BP 117/82
[2021-03-29] MEDS: metFORMIN HYDROCHLORIDE 500 MG TAB PO SCH (09:59)
[2021-03-29] MEDS ORDERED: POTASSIUM CHL 20 Meq TABLET PO SCH (10:00)
[2021-03-29] MEDS: DAPAGLIFLOZIN 5 MG TAB PO SCH (10:00)
[2021-03-29] MEDS: ASPirin 81 mg TAB PO SCH (10:00)
[2021-03-29] MEDS ORDERED: FUROSEMIDE 40 MG/4 ML VIAL IV SCH (10:00)
[2021-03-29] MEDS: METOPROLOL TARTRATE 25 MG TAB PO SCH (10:01)
[2021-03-29] MEDS: LISINOPRIL 10 MG TAB PO SCH (10:01)
[2021-03-29 13:00] VITALS: BP 119/79
== END 2021-03-29 15:01 | disposition home or self-care (01) | DRG 194 ==
LOC: ER 04:07 → TELE 12:28 → TELE-CENTR 20:20
PROVIDERS: ADMIT Hospitalist; ATTEND Internal Medicine
DX: I13.0 Hypertensive heart and chronic kidney disease with heart failure and stage 1 through stage 4 chronic kidney disease, or unspecified chronic kidney disease (principal); J18.9 Pneumonia, unspecified organism; J91.8 Pleural effusion in other conditions classified elsewhere; E88.09 Other disorders of plasma-protein metabolism, not elsewhere classified; J44.0 Chronic obstructive pulmonary disease with (acute) lower respiratory infection; E11.22 Type 2 diabetes mellitus with diabetic chronic kidney disease; I42.7 Cardiomyopathy due to drug and external agent; Z20.822 Contact with and (suspected) exposure to COVID-19; I50.21 Acute systolic (congestive) heart failure; Z91.19 Patient's noncompliance with other medical treatment and regimen; E11.65 Type 2 diabetes mellitus with hyperglycemia; E78.5 Hyperlipidemia, unspecified; F19.10 Other psychoactive substance abuse, uncomplicated; T43.625A Adverse effect of amphetamines, initial encounter; F15.90 Other stimulant use, unspecified, uncomplicated; F17.210 Nicotine dependence, cigarettes, uncomplicated; N18.30 Chronic kidney disease, stage 3 unspecified; Z79.82 Long term (current) use of aspirin; Z79.84 Long term (current) use of oral hypoglycemic drugs; Z79.899 Other long term (current) drug therapy; Z80.42 Family history of malignant neoplasm of prostate; Z85.46 Personal history of malignant neoplasm of prostate; Z71.51 Drug abuse counseling and surveillance of drug abuser; Z71.6 Tobacco abuse counseling; Y92.89 Other specified places as the place of occurrence of the external cause
CPT/HCPCS: 36415; 70450; 71045; 71046; 80048; 80053; 80061; 80307; 81001; 82962; 83036; 83735; 83880; 84100; 84443; 84484; 85025; 85610; 85730; 87040; 87081; 87426; 93005; 94640; 96365; 96375; G0378; J1815; J3490

== ENCOUNTER 2021-04-20 01:10 | Inpatient (IN) | payer OTHER ==
[~2021-04-20] VITALS: Ht 177.8 cm; Wt 89.5 kg
[2021-04-20 02:14] LABS: Basophils # (auto) 0.1 10 ^3/uL (0-0.2); Basophils % (auto) 0.9 % (0.0-2.0); Eosinophils # (auto) 0.2 10 ^3/uL (0-0.8); Eosinophils % (auto) 3.3 % (0.0-7.0); Hematocrit 48.2 % (41.0-53.0); Hemoglobin 16.1 g/dL (13.5-17.5); Lymphocytes # (auto) 1.6 10 ^3/uL (0.4-5.4); Lymphocytes % (auto) 23.6 % (10.0-50.0); Mean Corpuscular Hemoglobin 32.9 pg (28.0-32.0); Mean Corpuscular Hgb Conc. 33.3 g/dL (32.0-36.0); Mean Corpuscular Volume 98.6 fL (80.0-100.0); Monocytes # (auto) 0.6 10 ^3/uL (0-1.3); Monocytes % (auto) 8.5 % (0.0-12.0); Neutrophils # (auto) 4.4 10 ^3/uL (1.6-8.6); Neutrophils % (auto) 63.7 % (37.0-80.0); Red Blood Cells 4.89 10^6/uL (4.5-5.90); Red Cell Distribution Width 15.5 % (11.8-14.3); White Blood Cell 6.9 10^3/uL (4.4-10.8)
[2021-04-20 02:18] LABS: INR 1.13 (0.9-1.15)
[2021-04-20 02:19] LABS: Albumin 3.1 g/dL (3.4-5.0); BUN/Creatinine Ratio 12.2; Calcium 9.1 mg/dL (8.5-10.1); Magnesium 2.3 mg/dL (1.6-2.6); Potassium 4.6 mmol/L (3.5-5.1)
[2021-04-20 02:28] LABS: Bilirubin, Total 0.7 mg/dL (0.2-1.0); Total Protein 7.9 g/dL (6.4-8.2)
[2021-04-20] MEDS ORDERED: ASPirin 325 MG TAB PO ONE (03:45)
[2021-04-20] MEDS ORDERED: KETOROLAC TROMETH 30 MG/ML 1ML VIAL IV ONE (03:45)
[2021-04-20] MEDS ORDERED: FUROSEMIDE 40 MG/4 ML VIAL IV ONE (03:45)
[2021-04-20] MEDS ORDERED: TEMAZEPAM 15 MG CAP PO PRN (07:00)
[2021-04-20] MEDS ORDERED: ACETAMINOPHEN 325 MG TAB PO PRN (07:00)
[2021-04-20] MEDS ORDERED: ONDANSETRON HCL 4 MG/2 ML VIAL IV PRN (07:00)
[2021-04-20] MEDS ORDERED: DEXTROSE (50%) 50ML SYRG IV PRN (07:00)
[2021-04-20] MEDS ORDERED: NITROGLYCERIN 0.4 MG SL TAB SL PRN (07:00)
[2021-04-20] MEDS ORDERED: MORPHINE SULFATE INJECTION 2 MG/ML SYRG IV PRN (07:00)
[2021-04-20] MEDS: ACCU-CHEK COMFORT CURVE STRIP VI SCH ×4 (08:02→22:29)
[2021-04-20] MEDS: InsuLIN REG 1unit/0.01ml Soln (100units/ml) SC SCH ×4 (08:02→22:29)
[2021-04-20] MEDS: METOPROLOL TARTRATE 25 MG TAB PO SCH ×2 (09:40→22:30)
[2021-04-20] MEDS ORDERED: PANTOPRAZOLE 40 MG TAB PO SCH (10:00)
[2021-04-20] MEDS ORDERED: LISINOPRIL 10 MG TAB PO SCH (10:00)
[2021-04-20] MEDS ORDERED: ENOXAPARIN SOD 40 MG/0.4 ML SYRINGE SC SCH (10:00)
[2021-04-20] MEDS ORDERED: FUROSEMIDE 20 MG/2 ML VIAL IV SCH (18:00)
[2021-04-20 21:26] VITALS: BP 135/96
[2021-04-20 21:55] VITALS: BP 135/96
[2021-04-20] MEDS ORDERED: ATORVASTATIN 20 MG TAB PO SCH (22:00)
[2021-04-21] MEDS ORDERED: ASPirin 81 mg TAB PO SCH (10:00)
== END 2021-04-21 04:21 | disposition left against medical advice (07) | DRG 190 ==
LOC: ER 01:16 → TELE 06:50 → TELE-WESTW 20:57
PROVIDERS: ADMIT Nurse Practitioner; ATTEND Family Medicine
DX: I21.4 Non-ST elevation (NSTEMI) myocardial infarction (principal); I50.43 Acute on chronic combined systolic (congestive) and diastolic (congestive) heart failure; E11.22 Type 2 diabetes mellitus with diabetic chronic kidney disease; Z20.822 Contact with and (suspected) exposure to COVID-19; Z53.29 Procedure and treatment not carried out because of patient's decision for other reasons; E78.00 Pure hypercholesterolemia, unspecified; E78.5 Hyperlipidemia, unspecified; F15.10 Other stimulant abuse, uncomplicated; I13.0 Hypertensive heart and chronic kidney disease with heart failure and stage 1 through stage 4 chronic kidney disease, or unspecified chronic kidney disease; F17.210 Nicotine dependence, cigarettes, uncomplicated; N18.30 Chronic kidney disease, stage 3 unspecified; Z71.6 Tobacco abuse counseling
CPT/HCPCS: 36415; 71045; 80053; 80320; 82962; 83735; 83880; 84484; 85025; 85610; 85730; 87426; 93005; 96374; 96375; G0378; J1815; J1885

== ENCOUNTER 2021-04-29 15:08 | Inpatient (IN) | payer OTHER ==
[~2021-04-29] VITALS: Ht 177.8 cm; Wt 89.7 kg
[2021-04-29] MEDS ORDERED: FUROSEMIDE 40 MG/4 ML VIAL IV ONE (15:45)
[2021-04-29 18:41] LABS: Basophils # (auto) 0.1 10 ^3/uL (0-0.2); Basophils % (auto) 1.2 % (0.0-2.0); Eosinophils # (auto) 0.1 10 ^3/uL (0-0.8); Eosinophils % (auto) 1.7 % (0.0-7.0); Hemoglobin 16.2 g/dL (13.5-17.5); Lymphocytes # (auto) 1.1 10 ^3/uL (0.4-5.4); Mean Corpuscular Hemoglobin 31.8 pg (28.0-32.0); Mean Corpuscular Hgb Conc. 32.4 g/dL (32.0-36.0); Mean Corpuscular Volume 97.9 fL (80.0-100.0); Monocytes # (auto) 0.6 10 ^3/uL (0-1.3); Neutrophils # (auto) 4.5 10 ^3/uL (1.6-8.6); Neutrophils % (auto) 71.1 % (37.0-80.0); Red Blood Cells 5.11 10^6/uL (4.5-5.90); White Blood Cell 6.3 10^3/uL (4.4-10.8)
[2021-04-29 18:58] LABS: BUN/Creatinine Ratio 11.2; Calcium 9.2 mg/dL (8.5-10.1); Magnesium 2.4 mg/dL (1.6-2.6); Potassium 3.8 mmol/L (3.5-5.1)
[2021-04-29 19:03] LABS: Bilirubin, Total 1.1 mg/dL (0.2-1.0); Total Protein 7.9 g/dL (6.4-8.2)
[2021-04-29] MEDS ORDERED: DEXTROSE (50%) 50ML SYRG IV PRN (23:15)
[2021-04-29] MEDS ORDERED: HYDROcodone-ACET 5/325MG TAB PO PRN (23:15)
[2021-04-29] MEDS ORDERED: ACETAMINOPHEN 325 MG TAB PO PRN (23:15)
[2021-04-29] MEDS ORDERED: hydrALAZINE HCL 20 MG/ML VL IV PRN (23:15)
[2021-04-29] MEDS ORDERED: DOCUSATE SOD 100 MG CAP PO PRN (23:15)
[2021-04-29] MEDS ORDERED: ONDANSETRON HCL 4 MG/2 ML VIAL IV PRN (23:15)
[2021-04-30] MEDS ORDERED: MORPHINE SULFATE INJECTION 2 MG/ML SYRG IV PRN
[2021-04-30] MEDS ORDERED: NITROGLYCERIN 0.4 MG SL TAB SL PRN
[2021-04-30 00:28] LABS: Urine WBC None Seen /hpf (0 - 3)
[2021-04-30 00:49] LABS: Urine Bacteria NONE SEEN /hpf (None Seen); Urine Blood Negative /uL (Negative); Urine Hyaline Cast FEW /lpf (0 - 2); Urine Specific Gravity 1.007 (1.001-1.035)
[2021-04-30 02:47] VITALS: BP 167/100
[2021-04-30] MEDS ORDERED: LISI-716 PO (02:57)
[2021-04-30] MEDS ORDERED: METF-370 PO (02:57)
[2021-04-30] MEDS ORDERED: FURO40TA4 PO (02:57)
[2021-04-30] MEDS ORDERED: ATOR40TA52 PO (02:57)
[2021-04-30] MEDS ORDERED: MET25T PO (02:57)
[2021-04-30] MEDS ORDERED: ASPI-325 PO (02:57)
[2021-04-30] MEDS: SODIUM CHLOR 0.9% PF (SALINE LOCK) 10ML VIAL/SYR IV SCH ×3 (04:34→21:54)
[2021-04-30 06:32] VITALS: BP 146/86
[2021-04-30] MEDS: ACCU-CHEK COMFORT CURVE STRIP VI SCH ×4 (06:37→21:55)
[2021-04-30] MEDS: InsuLIN REG 1unit/0.01ml Soln (100units/ml) SC SCH ×4 (06:57→21:55)
[2021-04-30 09:00] VITALS: BP 154/101
[2021-04-30] MEDS: FAMOTIDINE (10MG/ML) 2ML VL IV SCH (12:07)
[2021-04-30] MEDS: LISINOPRIL 10 MG TAB PO SCH (12:10)
[2021-04-30] MEDS: ASCORBIC ACID 500 MG TAB PO SCH ×2 (12:10→21:55)
[2021-04-30] MEDS: MULTIPLE VITAMIN TAB PO SCH (12:10)
[2021-04-30] MEDS: ZINC SULFATE 220mg CAP or TAB PO SCH (12:11)
[2021-04-30] MEDS: CARVEDILOL 12.5 MG TAB PO SCH ×2 (12:11→21:54)
[2021-04-30] MEDS: FUROSEMIDE 40 MG/4 ML VIAL IV SCH (12:13)
[2021-04-30] MEDS: HEPARIN SODIUM (PORCINE) 5000 UNITS/ML 1ML VIAL SC SCH ×2 (12:34→21:55)
[2021-04-30 12:35] VITALS: BP 155/105
[2021-04-30 16:34] LABS: Alcohol, Urine < 3.0 mg/dL (0-10); Amphetamine Screen, Urine POSITIVE (NEGATIVE); Barbiturate Scree,Urine NEGATIVE (NEGATIVE); Benzodiazephine Screen, Urine NEGATIVE (NEGATIVE); Cannabinoid Screen, Urine NEGATIVE (NEGATIVE); Cocaine Screen, Urine NEGATIVE (NEGATIVE); Phencyclidine Screen, Urine NEGATIVE (NEGATIVE)
[2021-04-30 16:39] VITALS: BP 132/91
[2021-04-30 16:41] LABS: Opiate Scree,Urine NEGATIVE (NEGATIVE)
[2021-04-30] MEDS: ATORVASTATIN 20 MG TAB PO SCH (21:55)
[2021-04-30 21:58] VITALS: BP 134/95
[2021-05-01 05:00] VITALS: BP 146/91
[2021-05-01] MEDS: SODIUM CHLOR 0.9% PF (SALINE LOCK) 10ML VIAL/SYR IV SCH ×3 (06:06→22:20)
[2021-05-01] MEDS: ACCU-CHEK COMFORT CURVE STRIP VI SCH ×4 (06:32→22:21)
[2021-05-01] MEDS: InsuLIN REG 1unit/0.01ml Soln (100units/ml) SC SCH ×4 (06:47→22:30)
[2021-05-01 09:00] VITALS: BP 133/90
[2021-05-01] MEDS: ASCORBIC ACID 500 MG TAB PO SCH ×2 (10:00→22:00)
[2021-05-01] MEDS: HEPARIN SODIUM (PORCINE) 5000 UNITS/ML 1ML VIAL SC SCH ×2 (10:00→22:00)
[2021-05-01] MEDS: ZINC SULFATE 220mg CAP or TAB PO SCH (10:00)
[2021-05-01] MEDS: FAMOTIDINE (10MG/ML) 2ML VL IV SCH (10:00)
[2021-05-01] MEDS: LISINOPRIL 10 MG TAB PO SCH (10:00)
[2021-05-01] MEDS: CARVEDILOL 12.5 MG TAB PO SCH ×2 (10:00→22:00)
[2021-05-01] MEDS: FUROSEMIDE 40 MG/4 ML VIAL IV SCH (10:00)
[2021-05-01] MEDS: MULTIPLE VITAMIN TAB PO SCH (10:00)
[2021-05-01 13:00] VITALS: BP 127/94
[2021-05-01 17:00] VITALS: BP 148/99
[2021-05-01 22:00] VITALS: BP 133/98
[2021-05-01] MEDS: ATORVASTATIN 20 MG TAB PO SCH (22:00)
[2021-05-02] MEDS: SODIUM CHLOR 0.9% PF (SALINE LOCK) 10ML VIAL/SYR IV SCH (06:20)
[2021-05-02] MEDS: ACCU-CHEK COMFORT CURVE STRIP VI SCH (06:38)
[2021-05-02] MEDS: InsuLIN REG 1unit/0.01ml Soln (100units/ml) SC SCH (06:38)
[2021-05-02 09:00] VITALS: BP 154/100
[2021-05-02] MEDS: FUROSEMIDE 40 MG/4 ML VIAL IV SCH (09:45)
[2021-05-02] MEDS: ZINC SULFATE 220mg CAP or TAB PO SCH (09:46)
[2021-05-02] MEDS: CARVEDILOL 12.5 MG TAB PO SCH (09:46)
[2021-05-02] MEDS: FAMOTIDINE (10MG/ML) 2ML VL IV SCH (09:46)
[2021-05-02] MEDS: MULTIPLE VITAMIN TAB PO SCH (09:47)
[2021-05-02] MEDS: LISINOPRIL 10 MG TAB PO SCH (09:47)
[2021-05-02] MEDS: ASCORBIC ACID 500 MG TAB PO SCH (09:47)
[2021-05-02] MEDS: HEPARIN SODIUM (PORCINE) 5000 UNITS/ML 1ML VIAL SC SCH (09:47)
[2021-05-02 12:24] LABS: Basophils # (auto) 0.1 10 ^3/uL (0-0.2); Basophils % (auto) 0.8 % (0.0-2.0); Eosinophils # (auto) 0.1 10 ^3/uL (0-0.8); Eosinophils % (auto) 2.1 % (0.0-7.0); Hematocrit 49.8 % (41.0-53.0); Hemoglobin 16.3 g/dL (13.5-17.5); Lymphocytes # (auto) 1.1 10 ^3/uL (0.4-5.4); Lymphocytes % (auto) 16.5 % (10.0-50.0); Mean Corpuscular Hemoglobin 31.9 pg (28.0-32.0); Mean Corpuscular Hgb Conc. 32.7 g/dL (32.0-36.0); Mean Corpuscular Volume 97.7 fL (80.0-100.0); Monocytes # (auto) 0.6 10 ^3/uL (0-1.3); Monocytes % (auto) 8.4 % (0.0-12.0); Neutrophils # (auto) 4.9 10 ^3/uL (1.6-8.6); Neutrophils % (auto) 72.2 % (37.0-80.0); White Blood Cell 6.8 10^3/uL (4.4-10.8)
[2021-05-02 12:38] LABS: INR 1.18 (0.9-1.15); Partial Thromboplastin Time 28.7 sec (23.6-33.0)
[2021-05-02 12:47] LABS: BUN/Creatinine Ratio 18.5; Calcium 9.1 mg/dL (8.5-10.1); Potassium 4.6 mmol/L (3.5-5.1)
== END 2021-05-02 11:30 | disposition left against medical advice (07) | DRG 194 ==
LOC: ER 15:08 → TELE 23:52 → TELE-WESTW 04-30 01:26
PROVIDERS: ADMIT Nurse Practitioner Family; ATTEND Internal Medicine Pulmonary Disease
DX: I11.0 Hypertensive heart disease with heart failure (principal); J91.8 Pleural effusion in other conditions classified elsewhere; I42.7 Cardiomyopathy due to drug and external agent; I50.43 Acute on chronic combined systolic (congestive) and diastolic (congestive) heart failure; E88.09 Other disorders of plasma-protein metabolism, not elsewhere classified; E11.65 Type 2 diabetes mellitus with hyperglycemia; E78.5 Hyperlipidemia, unspecified; F17.210 Nicotine dependence, cigarettes, uncomplicated; F19.10 Other psychoactive substance abuse, uncomplicated; T50.905A Adverse effect of unspecified drugs, medicaments and biological substances, initial encounter; R79.89 Other specified abnormal findings of blood chemistry; Z53.29 Procedure and treatment not carried out because of patient's decision for other reasons; Z79.84 Long term (current) use of oral hypoglycemic drugs; Z80.42 Family history of malignant neoplasm of prostate; Z91.19 Patient's noncompliance with other medical treatment and regimen; Y92.89 Other specified places as the place of occurrence of the external cause
CPT/HCPCS: 36415; 71046; 71250; 76604; 80048; 80053; 80307; 81001; 82962; 83735; 83880; 84484; 85025; 85379; 85610; 85730; 87081; 87426; 93005; 96374; G0378; J1815; J3490

== ENCOUNTER 2021-06-10 23:25 | Emergency (ER) | payer OTHER ==
[~2021-06-10] VITALS: Ht 177.8 cm; Wt 86.2 kg
[~2021-06-10 23:25] MED LIST changes: +ASPI-325 PO; -ASPI-498 PO; -ATEN100T PO; +ATOR40TA52 PO; -ENAL2.5T7 PO; +FURO40TA4 PO; +LISI-716 PO; +MET25T PO; -SIMV10TA84 PO
[2021-06-10 23:26] VITALS: BP 129/112
[2021-06-11 00:36] LABS: Basophils # (auto) 0.1 10 ^3/uL (0-0.2); Basophils % (auto) 1.2 % (0.0-2.0); Eosinophils # (auto) 0.2 10 ^3/uL (0-0.8); Eosinophils % (auto) 2.7 % (0.0-7.0); Hematocrit 50.2 % (41.0-53.0); Hemoglobin 16.4 g/dL (13.5-17.5); Lymphocytes # (auto) 1.6 10 ^3/uL (0.4-5.4); Lymphocytes % (auto) 23.7 % (10.0-50.0); Mean Corpuscular Hemoglobin 30.8 pg (28.0-32.0); Mean Corpuscular Hgb Conc. 32.6 g/dL (32.0-36.0); Mean Corpuscular Volume 94.7 fL (80.0-100.0); Monocytes # (auto) 0.5 10 ^3/uL (0-1.3); Monocytes % (auto) 6.8 % (0.0-12.0); Neutrophils # (auto) 4.5 10 ^3/uL (1.6-8.6); Neutrophils % (auto) 65.6 % (37.0-80.0); Red Cell Distribution Width 14.6 % (11.8-14.3); White Blood Cell 6.8 10^3/uL (4.4-10.8)
[2021-06-11 00:54] LABS: Albumin 3.5 g/dL (3.4-5.0); Calcium 9.8 mg/dL (8.5-10.1); Potassium 4.2 mmol/L (3.5-5.1)
[2021-06-11 00:56] LABS: Bilirubin, Total 1.1 mg/dL (0.2-1.0); Total Protein 7.9 g/dL (6.4-8.2)
== END 2021-06-11 15:15 | disposition left against medical advice (07) ==
LOC: ER 23:25
DX: M79.662 Pain in left lower leg (principal); M79.661 Pain in right lower leg; Z53.21 Procedure and treatment not carried out due to patient leaving prior to being seen by health care provider
CPT/HCPCS: 36415; 80053; 83880; 85025

== ENCOUNTER 2021-09-01 20:16 | Inpatient (IN) | payer OTHER ==
[~2021-09-01] VITALS: Ht 177.8 cm; Wt 77.2 kg
[2021-09-01 21:35] LABS: Hematocrit 42.1 % (41.0-53.0); Hemoglobin 14.2 g/dL (13.5-17.5); Mean Corpuscular Hemoglobin 30.9 pg (28.0-32.0); Mean Corpuscular Hgb Conc. 33.7 g/dL (32.0-36.0); Mean Corpuscular Volume 91.6 fL (80.0-100.0); Red Blood Cells 4.59 10^6/uL (4.5-5.90); Red Cell Distribution Width 15.1 % (11.8-14.3); White Blood Cell 5.8 10^3/uL (4.4-10.8)
[2021-09-01 21:49] LABS: Band Neutrophils % (manual) 0; Basophils % (manual) 0 (0.0-2.0); Blast Cells 0; Metamyelocytes % 0; Myelocytes % 0; Promyelocytes % 0; Reactive Lymphocytes 0
[2021-09-01 21:50] LABS: Albumin 2.8 g/dL (3.4-5.0); Calcium 8.2 mg/dL (8.5-10.1)
[2021-09-01 21:56] LABS: BUN/Creatinine Ratio 17.4; Bilirubin, Total 0.6 mg/dL (0.2-1.0); Total Protein 6.8 g/dL (6.4-8.2)
[2021-09-01 22:07] LABS: Lymphocytes % (manual) 17 (10.0-50.0)
[2021-09-01 22:08] LABS: Eosinophils % (manual) 2 (0-7); Monocytes % (manual) 11 (0-12)
[2021-09-02] VITALS (7 sets, daily range): BP systolic 117–138; BP diastolic 57–90
[2021-09-02] MEDS ORDERED: NITROGLYCERIN 0.4 MG SL TAB SL PRN (02:15)
[2021-09-02] MEDS ORDERED: DEXTROSE (50%) 50ML SYRG IV PRN (02:15)
[2021-09-02] MEDS ORDERED: DOCUSATE SOD 100 MG CAP PO PRN (02:15)
[2021-09-02] MEDS ORDERED: ACETAMINOPHEN 325 MG TAB PO PRN (02:15)
[2021-09-02] MEDS ORDERED: ONDANSETRON HCL 4 MG/2 ML VIAL IV PRN (02:15)
[2021-09-02] MEDS ORDERED: FUROSEMIDE 40 MG/4 ML VIAL IV ONE (02:15)
[2021-09-02] MEDS ORDERED: MORPHINE SULFATE INJECTION 2 MG/ML SYRG IV PRN (02:15)
[2021-09-02] MEDS: HYDROcodone-ACET 5/325MG TAB PO PRN ×3 (03:42→20:21)
[2021-09-02] MEDS: ACCU-CHEK COMFORT CURVE STRIP VI SCH ×4 (06:13→22:01)
[2021-09-02] MEDS: SODIUM CHLOR 0.9% PF (SALINE LOCK) 10ML VIAL/SYR IV SCH ×3 (06:15→21:57)
[2021-09-02] MEDS: InsuLIN REG 1unit/0.01ml Soln (100units/ml) SC SCH ×3 (06:15→18:12)
[2021-09-02] MEDS ORDERED: POTA10TA51 PO (06:18)
[2021-09-02] MEDS ORDERED: GABA300C10 PO (06:18)
[2021-09-02] MEDS ORDERED: METF-490 PO (06:18)
[2021-09-02] MEDS ORDERED: CARV3.1240 PO (06:18)
[2021-09-02] MEDS ORDERED: FURO80TA3 PO (06:18)
[2021-09-02 08:01] LABS: Basophils # (auto) 0.1 10 ^3/uL (0-0.2); Basophils % (auto) 1.8 % (0.0-2.0); Eosinophils # (auto) 0.2 10 ^3/uL (0-0.8); Eosinophils % (auto) 3.9 % (0.0-7.0); Lymphocytes # (auto) 1.3 10 ^3/uL (0.4-5.4); Lymphocytes % (auto) 22.2 % (10.0-50.0); Mean Corpuscular Hemoglobin 31.2 pg (28.0-32.0); Mean Corpuscular Hgb Conc. 34.1 g/dL (32.0-36.0); Mean Corpuscular Volume 91.5 fL (80.0-100.0); Monocytes # (auto) 0.5 10 ^3/uL (0-1.3); Monocytes % (auto) 8.1 % (0.0-12.0); Neutrophils # (auto) 3.7 10 ^3/uL (1.6-8.6); Nucleated Red Blood Cells % 0.2 %; Red Blood Cells 4.81 10^6/uL (4.5-5.90); Red Cell Distribution Width 15.4 % (11.8-14.3); White Blood Cell 5.8 10^3/uL (4.4-10.8)
[2021-09-02 08:24] LABS: Albumin 3.1 g/dL (3.4-5.0); Calcium 8.8 mg/dL (8.5-10.1); Potassium 3.5 mmol/L (3.5-5.1)
[2021-09-02 08:28] LABS: BUN/Creatinine Ratio 14.3; Bilirubin, Total 0.6 mg/dL (0.2-1.0); Total Protein 7.4 g/dL (6.4-8.2)
[2021-09-02] MEDS ORDERED: FUROSEMIDE 40 MG/4 ML VIAL IV SCH (10:00)
[2021-09-02] MEDS ORDERED: ASPirin 81 mg TAB PO SCH (10:00)
[2021-09-02] MEDS ORDERED: FAMOTIDINE (10MG/ML) 2ML VL IV SCH (10:00)
[2021-09-02] MEDS: CARVEDILOL 12.5 MG TAB PO SCH ×2 (10:19→22:01)
[2021-09-02 11:50] LABS: Urine Bacteria NONE SEEN /hpf (None Seen); Urine Blood Negative /uL (Negative); Urine Specific Gravity 1.006 (1.001-1.035)
[2021-09-02 11:53] LABS: Urine WBC None Seen /hpf (0 - 3)
[2021-09-02 16:33] LABS: Amphetamine Screen, Urine POSITIVE (NEGATIVE); Barbiturate Scree,Urine NEGATIVE (NEGATIVE); Benzodiazephine Screen, Urine NEGATIVE (NEGATIVE); Cannabinoid Screen, Urine NEGATIVE (NEGATIVE); Cocaine Screen, Urine NEGATIVE (NEGATIVE); Opiate Scree,Urine NEGATIVE (NEGATIVE); Phencyclidine Screen, Urine NEGATIVE (NEGATIVE)
[2021-09-02] MEDS: FUROSEMIDE 40 MG/4 ML VIAL IV SCH (17:56)
[2021-09-02] MEDS ORDERED: ATORVASTATIN 20 MG TAB PO SCH (22:00)
[2021-09-02] MEDS ORDERED: InsuLIN REG 1unit/0.01ml Soln (100units/ml) SC SCH (22:00)
[2021-09-03] MEDS: SODIUM CHLOR 0.9% PF (SALINE LOCK) 10ML VIAL/SYR IV SCH (06:00)
[2021-09-03] MEDS: FUROSEMIDE 40 MG/4 ML VIAL IV SCH (06:00)
[2021-09-03] MEDS: ACCU-CHEK COMFORT CURVE STRIP VI SCH (06:49)
[2021-09-03] MEDS: InsuLIN REG 1unit/0.01ml Soln (100units/ml) SC SCH (06:50)
[2021-09-03] MEDS ORDERED: POTASSIUM CHL 20 Meq TABLET PO SCH (10:00)
== END 2021-09-03 08:54 | disposition left against medical advice (07) | DRG 194 ==
LOC: ER 20:16 → EDBD 20:16 → TELE 09-02 02:01 → TELE-WESTW 09-02 05:25
PROVIDERS: ADMIT Nurse Practitioner Family; ATTEND Internal Medicine
DX: I11.0 Hypertensive heart disease with heart failure (principal); E88.09 Other disorders of plasma-protein metabolism, not elsewhere classified; I42.0 Dilated cardiomyopathy; I50.23 Acute on chronic systolic (congestive) heart failure; E11.65 Type 2 diabetes mellitus with hyperglycemia; E78.5 Hyperlipidemia, unspecified; Z20.822 Contact with and (suspected) exposure to COVID-19; F15.90 Other stimulant use, unspecified, uncomplicated; Z53.29 Procedure and treatment not carried out because of patient's decision for other reasons; F17.210 Nicotine dependence, cigarettes, uncomplicated; R09.02 Hypoxemia; Z91.14 Patient's other noncompliance with medication regimen
CPT/HCPCS: 36415; 71045; 80053; 80307; 81001; 82962; 83036; 83880; 84484; 85007; 85025; 85027; 93005; 93306; 96374; G0378; J1815; J3490

== ENCOUNTER 2021-09-14 02:17 | Emergency (ER) | payer OTHER ==
[~2021-09-14] VITALS: Ht 177.8 cm; Wt 90.7 kg
[~2021-09-14 02:17] MED LIST changes: -ATOR40TA52 PO; +CARV3.1240 PO; -FURO40TA4 PO; +FURO80TA3 PO; +GABA300C10 PO; -MET25T PO; -METF-370 PO; +METF-490 PO; +POTA10TA51 PO
[2021-09-14 03:11] LABS: Basophils # (auto) 0.1 10 ^3/uL (0-0.2); Basophils % (auto) 1.1 % (0.0-2.0); Eosinophils # (auto) 0.3 10 ^3/uL (0-0.8); Eosinophils % (auto) 3.9 % (0.0-7.0); Hematocrit 42.8 % (41.0-53.0); Hemoglobin 14.7 g/dL (13.5-17.5); Lymphocytes # (auto) 1.8 10 ^3/uL (0.4-5.4); Lymphocytes % (auto) 27.4 % (10.0-50.0); Mean Corpuscular Hemoglobin 31.9 pg (28.0-32.0); Mean Corpuscular Hgb Conc. 34.2 g/dL (32.0-36.0); Mean Corpuscular Volume 93.3 fL (80.0-100.0); Monocytes # (auto) 0.6 10 ^3/uL (0-1.3); Monocytes % (auto) 8.2 % (0.0-12.0); Neutrophils % (auto) 59.4 % (37.0-80.0); Nucleated Red Blood Cells % 0.1 %; Red Blood Cells 4.59 10^6/uL (4.5-5.90); White Blood Cell 6.7 10^3/uL (4.4-10.8)
[2021-09-14 03:31] LABS: Albumin 3.3 g/dL (3.4-5.0); Potassium 3.9 mmol/L (3.5-5.1)
[2021-09-14 03:33] LABS: BUN/Creatinine Ratio 11.8
[2021-09-14 03:38] LABS: Bilirubin, Total 0.6 mg/dL (0.2-1.0); Total Protein 7.6 g/dL (6.4-8.2)
[2021-09-14 04:52] VITALS: BP 138/98
[2021-09-14] MEDS ORDERED: FUROSEMIDE 20 MG/2 ML VIAL IV ONE (05:30)
== END 2021-09-14 06:29 | disposition left against medical advice (07) ==
LOC: EDBD 02:17 → ER 02:17
DX: R07.89 Other chest pain (principal); I11.0 Hypertensive heart disease with heart failure; I50.9 Heart failure, unspecified; E11.9 Type 2 diabetes mellitus without complications; E78.5 Hyperlipidemia, unspecified; F17.210 Nicotine dependence, cigarettes, uncomplicated; F15.10 Other stimulant abuse, uncomplicated; Z79.82 Long term (current) use of aspirin; Z79.899 Other long term (current) drug therapy
CPT/HCPCS: 36415; 71045; 80053; 83880; 84484; 85025; 93005; 96374; 99285; J1940

== ENCOUNTER 2021-09-16 19:55 | Inpatient (IN) | payer OTHER ==
[~2021-09-16] VITALS: Ht 177.8 cm; Wt 83.9 kg
[2021-09-16 21:26] LABS: Basophils # (auto) 0.1 10 ^3/uL (0-0.2); Basophils % (auto) 1.3 % (0.0-2.0); Eosinophils # (auto) 0.2 10 ^3/uL (0-0.8); Eosinophils % (auto) 2.1 % (0.0-7.0); Hematocrit 43.1 % (41.0-53.0); Hemoglobin 14.4 g/dL (13.5-17.5); Lymphocytes # (auto) 1.6 10 ^3/uL (0.4-5.4); Lymphocytes % (auto) 18.9 % (10.0-50.0); Mean Corpuscular Hemoglobin 31.2 pg (28.0-32.0); Mean Corpuscular Hgb Conc. 33.5 g/dL (32.0-36.0); Mean Corpuscular Volume 93.2 fL (80.0-100.0); Monocytes # (auto) 0.5 10 ^3/uL (0-1.3); Monocytes % (auto) 5.9 % (0.0-12.0); Neutrophils # (auto) 6.2 10 ^3/uL (1.6-8.6); Neutrophils % (auto) 71.8 % (37.0-80.0); Nucleated Red Blood Cells % 0.1 %; Red Blood Cells 4.62 10^6/uL (4.5-5.90); Red Cell Distribution Width 15.1 % (11.8-14.3); White Blood Cell 8.7 10^3/uL (4.4-10.8)
[2021-09-16 21:33] LABS: Albumin 3.5 g/dL (3.4-5.0); Potassium 4.1 mmol/L (3.5-5.1)
[2021-09-16 21:37] LABS: BUN/Creatinine Ratio 10.5; Bilirubin, Total 0.8 mg/dL (0.2-1.0)
[2021-09-17] MEDS ORDERED: FUROSEMIDE 40 MG/4 ML VIAL IV ONE (01:00)
[2021-09-17] MEDS ORDERED: ASPirin 325 MG TAB PO ONE (01:00)
[2021-09-17 03:22] VITALS: BP 142/110
[2021-09-17] MEDS ORDERED: MORPHINE SULFATE INJECTION 2 MG/ML SYRG IV PRN (05:00)
[2021-09-17] MEDS ORDERED: ACETAMINOPHEN 325 MG TAB PO PRN (05:00)
[2021-09-17] MEDS ORDERED: ONDANSETRON HCL 4 MG/2 ML VIAL IV PRN (05:00)
[2021-09-17] MEDS ORDERED: TEMAZEPAM 15 MG CAP PO PRN (05:00)
[2021-09-17] MEDS ORDERED: NITROGLYCERIN 0.4 MG SL TAB SL PRN (05:00)
[2021-09-17] MEDS ORDERED: DEXTROSE (50%) 50ML SYRG IV PRN (05:00)
[2021-09-17] MEDS ORDERED: FUROSEMIDE 20 MG/2 ML VIAL IV SCH (06:00)
[2021-09-17] MEDS ORDERED: ACCU-CHEK COMFORT CURVE STRIP VI SCH (07:00)
[2021-09-17] MEDS ORDERED: InsuLIN REG 1unit/0.01ml Soln (100units/ml) SC SCH (07:00)
[2021-09-17] MEDS ORDERED: ASPirin 81 mg TAB PO SCH (10:00)
[2021-09-17] MEDS ORDERED: PANTOPRAZOLE 40 MG TAB PO SCH (10:00)
[2021-09-17] MEDS ORDERED: GABAPENTIN 300 MG CAP PO SCH (10:00)
[2021-09-17] MEDS ORDERED: CARVEDILOL 3.125 MG TAB PO SCH (10:00)
[2021-09-17] MEDS ORDERED: ENOXAPARIN SOD 40 MG/0.4 ML SYRINGE SC SCH (10:00)
[2021-09-17] MEDS ORDERED: LISINOPRIL 10 MG TAB PO SCH (10:00)
== END 2021-09-17 09:25 | disposition left against medical advice (07) | DRG 194 ==
LOC: ER 19:55 → TELE 09-17 04:55 → TELE-WESTW 09-17 08:52
PROVIDERS: ADMIT Nurse Practitioner; ATTEND Nurse Practitioner
DX: I11.0 Hypertensive heart disease with heart failure (principal); I42.0 Dilated cardiomyopathy; I42.7 Cardiomyopathy due to drug and external agent; E11.9 Type 2 diabetes mellitus without complications; I50.23 Acute on chronic systolic (congestive) heart failure; E78.5 Hyperlipidemia, unspecified; F15.10 Other stimulant abuse, uncomplicated; F17.210 Nicotine dependence, cigarettes, uncomplicated; T43.625A Adverse effect of amphetamines, initial encounter; Y92.89 Other specified places as the place of occurrence of the external cause; Z53.29 Procedure and treatment not carried out because of patient's decision for other reasons; Z91.19 Patient's noncompliance with other medical treatment and regimen; R79.89 Other specified abnormal findings of blood chemistry; Z20.822 Contact with and (suspected) exposure to COVID-19
CPT/HCPCS: 36415; 71045; 80053; 82962; 83880; 84484; 85025; 93005; 96374; G0378; J1815

== ENCOUNTER 2021-09-20 21:20 | Emergency (ER) | payer OTHER ==
[~2021-09-20] VITALS: Ht 180.3 cm; Wt 83.6 kg
[2021-09-20 22:57] LABS: Basophils # (auto) 0.1 10 ^3/uL (0-0.2); Basophils % (auto) 1.1 % (0.0-2.0); Eosinophils # (auto) 0.4 10 ^3/uL (0-0.8); Eosinophils % (auto) 4.9 % (0.0-7.0); Hematocrit 44.6 % (41.0-53.0); Hemoglobin 15.1 g/dL (13.5-17.5); Lymphocytes # (auto) 1.8 10 ^3/uL (0.4-5.4); Lymphocytes % (auto) 24.5 % (10.0-50.0); Mean Corpuscular Hemoglobin 31.9 pg (28.0-32.0); Mean Corpuscular Hgb Conc. 33.9 g/dL (32.0-36.0); Mean Corpuscular Volume 94.1 fL (80.0-100.0); Monocytes # (auto) 0.6 10 ^3/uL (0-1.3); Monocytes % (auto) 8.1 % (0.0-12.0); Neutrophils # (auto) 4.6 10 ^3/uL (1.6-8.6); Neutrophils % (auto) 61.4 % (37.0-80.0); Nucleated Red Blood Cells % 0.1 %; Red Blood Cells 4.74 10^6/uL (4.5-5.90); Red Cell Distribution Width 15.6 % (11.8-14.3); White Blood Cell 7.4 10^3/uL (4.4-10.8)
[2021-09-20 23:17] LABS: Albumin 3.5 g/dL (3.4-5.0); BUN/Creatinine Ratio 18.3; Magnesium 2.3 mg/dL (1.6-2.6)
[2021-09-20 23:20] LABS: Bilirubin, Total 0.6 mg/dL (0.2-1.0); Total Protein 7.7 g/dL (6.4-8.2)
[2021-09-21 00:34] VITALS: BP 147/87
== END 2021-09-21 00:41 | disposition home or self-care (01) ==
LOC: ER 21:20
DX: F15.10 Other stimulant abuse, uncomplicated (principal); I42.9 Cardiomyopathy, unspecified; I11.0 Hypertensive heart disease with heart failure; I50.9 Heart failure, unspecified; E11.9 Type 2 diabetes mellitus without complications; E78.5 Hyperlipidemia, unspecified; F17.210 Nicotine dependence, cigarettes, uncomplicated
CPT/HCPCS: 36415; 71045; 80053; 83735; 83880; 84484; 85025; 93005

== ENCOUNTER 2022-04-07 11:56 | Inpatient (IN) | payer OTHER ==
[~2022-04-07] VITALS: Ht 177.8 cm; Wt 78.0 kg
[2022-04-07] MEDS ORDERED: ASPirin 81 mg TAB PO ONE (12:15)
[2022-04-07 13:30] LABS: Basophils # (auto) 0.1 10 ^3/uL (0-0.2); Basophils % (auto) 1.6 % (0.0-2.0); Eosinophils # (auto) 0.3 10 ^3/uL (0-0.8); Eosinophils % (auto) 4.5 % (0.0-7.0); Hematocrit 48.9 % (41.0-53.0); Hemoglobin 16.3 g/dL (13.5-17.5); Lymphocytes # (auto) 1.6 10 ^3/uL (0.4-5.4); Lymphocytes % (auto) 22.9 % (10.0-50.0); Mean Corpuscular Hemoglobin 31.6 pg (28.0-32.0); Mean Corpuscular Hgb Conc. 33.2 g/dL (32.0-36.0); Mean Corpuscular Volume 95.1 fL (80.0-100.0); Monocytes # (auto) 0.7 10 ^3/uL (0-1.3); Monocytes % (auto) 10.5 % (0.0-12.0); Neutrophils # (auto) 4.2 10 ^3/uL (1.6-8.6); Neutrophils % (auto) 60.5 % (37.0-80.0); Nucleated Red Blood Cells % 0.1 %; Red Blood Cells 5.15 10^6/uL (4.5-5.90)
[2022-04-07 13:39] LABS: Albumin 3.4 g/dL (3.4-5.0); BUN/Creatinine Ratio 15.9; Calcium 8.3 mg/dL (8.5-10.1); Magnesium 1.9 mg/dL (1.6-2.6); Potassium 4.5 mmol/L (3.5-5.1)
[2022-04-07 13:42] LABS: Bilirubin, Total 0.9 mg/dL (0.2-1.0); Total Protein 7.1 g/dL (6.4-8.2)
[2022-04-07] MEDS ORDERED: FUROSEMIDE 40 MG/4 ML VIAL IV ONE (14:45)
[2022-04-07 15:49] LABS: Urine Bacteria NONE SEEN /hpf (None Seen); Urine Blood Negative /uL (Negative); Urine Hyaline Cast FEW /lpf (0 - 2); Urine Mucus FEW (None Seen); Urine Specific Gravity 1.029 (1.001-1.035); Urine WBC 3 /hpf (0 - 3)
[2022-04-07 15:56] LABS: Alcohol, Urine < 3.0 mg/dL (0-10); Barbiturate Scree,Urine NEGATIVE (NEGATIVE); Benzodiazephine Screen, Urine NEGATIVE (NEGATIVE); Cannabinoid Screen, Urine NEGATIVE (NEGATIVE); Cocaine Screen, Urine NEGATIVE (NEGATIVE); Phencyclidine Screen, Urine NEGATIVE (NEGATIVE)
[2022-04-07] MEDS ORDERED: ONDANSETRON HCL 4 MG/2 ML VIAL IV PRN (16:00)
[2022-04-07] MEDS ORDERED: ACETAMINOPHEN 325 MG TAB PO PRN (16:00)
[2022-04-07] MEDS ORDERED: MORPHINE SULFATE INJ 2 MG/ml SYRG IV PRN (16:00)
[2022-04-07] MEDS ORDERED: NITROGLYCERIN 0.4 MG SL TAB SL PRN (16:00)
[2022-04-07 16:04] LABS: Amphetamine Screen, Urine POSITIVE (NEGATIVE); Opiate Scree,Urine NEGATIVE (NEGATIVE)
[2022-04-07] MEDS ORDERED: METO25TA36 PO (17:41)
[2022-04-07] MEDS ORDERED: metFORMIN HYDROCHLORIDE 500 MG TAB PO SCH (18:00)
[2022-04-07 19:06] LABS: Cholesterol 154 mg/dL (< 200); Triglycerides 97 mg/dL (< 150)
[2022-04-07 19:09] LABS: HDL Cholesterol 56 mg/dL (40-59); LDL Cholesterol 102 mg/dL (< 100)
[2022-04-07 19:34] LABS: INR 1.11 (0.9-1.15)
[2022-04-07] MEDS ORDERED: ATORVASTATIN 20 MG TAB PO SCH (22:00)
[2022-04-07] MEDS: CARVEDILOL 3.125 MG TAB PO SCH (22:00)
[2022-04-08] MEDS: CARVEDILOL 3.125 MG TAB PO SCH (03:13)
[2022-04-08 04:36] LABS: Basophils # (auto) 0.1 10 ^3/uL (0-0.2); Basophils % (auto) 1.2 % (0.0-2.0); Eosinophils # (auto) 0.4 10 ^3/uL (0-0.8); Eosinophils % (auto) 5.8 % (0.0-7.0); Hematocrit 46.9 % (41.0-53.0); Hemoglobin 15.9 g/dL (13.5-17.5); Lymphocytes # (auto) 2.2 10 ^3/uL (0.4-5.4); Lymphocytes % (auto) 29.3 % (10.0-50.0); Mean Corpuscular Hemoglobin 32.2 pg (28.0-32.0); Mean Corpuscular Hgb Conc. 33.9 g/dL (32.0-36.0); Mean Corpuscular Volume 94.9 fL (80.0-100.0); Monocytes # (auto) 0.8 10 ^3/uL (0-1.3); Monocytes % (auto) 10.1 % (0.0-12.0); Neutrophils # (auto) 4.1 10 ^3/uL (1.6-8.6); Neutrophils % (auto) 53.6 % (37.0-80.0); Nucleated Red Blood Cells % 0.1 %; Red Blood Cells 4.95 10^6/uL (4.5-5.90); Red Cell Distribution Width 14.1 % (11.8-14.3); White Blood Cell 7.6 10^3/uL (4.4-10.8)
[2022-04-08 04:56] LABS: Albumin 3.4 g/dL (3.4-5.0); BUN/Creatinine Ratio 17.1; Calcium 8.8 mg/dL (8.5-10.1); Potassium 3.8 mmol/L (3.5-5.1)
[2022-04-08 05:05] LABS: Bilirubin, Total 0.8 mg/dL (0.2-1.0)
[2022-04-08 08:00] VITALS: BP 124/72
[2022-04-08] MEDS ORDERED: POTASSIUM CHL 10 Meq TABLET PO SCH (10:00)
[2022-04-08] MEDS ORDERED: ASPirin 81 mg TAB PO SCH (10:00)
[2022-04-08] MEDS ORDERED: FUROSEMIDE 40 MG/4 ML VIAL IV SCH ×2 (10:00)
[2022-04-08] MEDS ORDERED: LISINOPRIL 10 MG TAB PO SCH (10:00)
[2022-04-08] MEDS ORDERED: DOCUSATE SOD 100 MG CAP PO SCH (10:00)
[2022-04-08] MEDS ORDERED: GABAPENTIN 300 MG CAP PO SCH (10:00)
== END 2022-04-08 09:04 | disposition left against medical advice (07) | DRG 194 ==
LOC: ER 11:56 → TELE 16:16
PROVIDERS: ADMIT Nurse Practitioner Family; ATTEND Nurse Practitioner Family
DX: I11.0 Hypertensive heart disease with heart failure (principal); I24.9 Acute ischemic heart disease, unspecified; E11.40 Type 2 diabetes mellitus with diabetic neuropathy, unspecified; I50.33 Acute on chronic diastolic (congestive) heart failure; Z20.822 Contact with and (suspected) exposure to COVID-19; Z53.29 Procedure and treatment not carried out because of patient's decision for other reasons; E78.5 Hyperlipidemia, unspecified; F15.90 Other stimulant use, unspecified, uncomplicated; F17.210 Nicotine dependence, cigarettes, uncomplicated; Z79.82 Long term (current) use of aspirin; Z79.899 Other long term (current) drug therapy; Z71.6 Tobacco abuse counseling
CPT/HCPCS: 36415; 71046; 80053; 80061; 80307; 81001; 83036; 83735; 83880; 84100; 84484; 85025; 85610; 87426; 93005; 96374; G0378

== ENCOUNTER 2022-04-19 21:59 | Inpatient (IN) | payer OTHER ==
[~2022-04-19] VITALS: Ht 177.8 cm; Wt 130.0 kg
[~2022-04-19 21:59] MED LIST changes: -CARV3.1240 PO; -METF-490 PO; +METO25TA36 PO; -POTA10TA51 PO
[2022-04-19] MEDS ORDERED: FUROSEMIDE 100 MG/10ML VIAL IV ONE (22:45)
[2022-04-19 23:05] LABS: Basophils # (auto) 0.1 10 ^3/uL (0-0.2); Basophils % (auto) 1.4 % (0.0-2.0); Eosinophils # (auto) 0.4 10 ^3/uL (0-0.8); Hematocrit 44.6 % (41.0-53.0); Hemoglobin 14.9 g/dL (13.5-17.5); Lymphocytes # (auto) 1.5 10 ^3/uL (0.4-5.4); Lymphocytes % (auto) 21.1 % (10.0-50.0); Mean Corpuscular Hemoglobin 32.2 pg (28.0-32.0); Mean Corpuscular Hgb Conc. 33.4 g/dL (32.0-36.0); Mean Corpuscular Volume 96.4 fL (80.0-100.0); Monocytes # (auto) 0.7 10 ^3/uL (0-1.3); Monocytes % (auto) 10.2 % (0.0-12.0); Neutrophils # (auto) 4.2 10 ^3/uL (1.6-8.6); Neutrophils % (auto) 61.3 % (37.0-80.0); Red Blood Cells 4.63 10^6/uL (4.5-5.90); Red Cell Distribution Width 14.4 % (11.8-14.3); White Blood Cell 6.9 10^3/uL (4.4-10.8)
[2022-04-19 23:27] LABS: Albumin 3.3 g/dL (3.4-5.0); Calcium 8.8 mg/dL (8.5-10.1); Potassium 3.8 mmol/L (3.5-5.1)
[2022-04-19 23:31] LABS: BUN/Creatinine Ratio 14.4; Bilirubin, Total 0.9 mg/dL (0.2-1.0); Total Protein 6.8 g/dL (6.4-8.2)
[2022-04-20] MEDS ORDERED: HYDROcodone-ACET 5/325MG TAB PO ONE (01:00)
[2022-04-20] MEDS ORDERED: MORPHINE SULFATE INJ 2 MG/ml SYRG IV PRN (03:00)
[2022-04-20] MEDS ORDERED: ONDANSETRON HCL 4 MG/2 ML VIAL IV PRN (03:00)
[2022-04-20] MEDS ORDERED: TEMAZEPAM 15 MG CAP PO PRN (03:00)
[2022-04-20] MEDS ORDERED: ACETAMINOPHEN 325 MG TAB PO PRN (03:00)
[2022-04-20] MEDS ORDERED: NITROGLYCERIN 0.4 MG SL TAB SL PRN (03:00)
[2022-04-20] MEDS ORDERED: DEXTROSE (50%) 50ML SYRG IV PRN (03:00)
[2022-04-20] MEDS ORDERED: FUROSEMIDE 20 MG/2 ML VIAL IV SCH (06:00)
[2022-04-20 07:00] VITALS: BP 130/78
[2022-04-20] MEDS ORDERED: InsuLIN REG 1unit/0.01ml Soln (100units/ml) SC SCH (07:00)
[2022-04-20] MEDS ORDERED: ACCU-CHEK COMFORT CURVE STRIP VI SCH (07:00)
[2022-04-20] MEDS ORDERED: ASPirin 81 mg TAB PO SCH (10:00)
[2022-04-20] MEDS ORDERED: PANTOPRAZOLE 40 MG TAB PO SCH (10:00)
[2022-04-20] MEDS ORDERED: METOPROLOL TARTRATE 25 MG TAB PO SCH (10:00)
[2022-04-20] MEDS ORDERED: LISINOPRIL 10 MG TAB PO SCH (10:00)
[2022-04-20] MEDS ORDERED: ENOXAPARIN SOD 40 MG/0.4 ML SYRINGE SC SCH (10:00)
[2022-04-20] MEDS ORDERED: ATORVASTATIN 20 MG TAB PO SCH (22:00)
== END 2022-04-20 09:06 | disposition left against medical advice (07) | DRG 194 ==
LOC: ER 21:59 → TELE 04-20 03:01
PROVIDERS: ADMIT Nurse Practitioner; ATTEND Nurse Practitioner Acute Care
DX: I11.0 Hypertensive heart disease with heart failure (principal); E44.0 Moderate protein-calorie malnutrition; I42.0 Dilated cardiomyopathy; E11.40 Type 2 diabetes mellitus with diabetic neuropathy, unspecified; Z53.29 Procedure and treatment not carried out because of patient's decision for other reasons; E78.5 Hyperlipidemia, unspecified; F15.10 Other stimulant abuse, uncomplicated; F17.210 Nicotine dependence, cigarettes, uncomplicated; Z68.41 Body mass index [BMI] 40.0-44.9, adult; I50.82 Biventricular heart failure
CPT/HCPCS: 36415; 71045; 80053; 82962; 83880; 84484; 85025; 93005; 96372; 96374; 96376; G0378; J1815

== ENCOUNTER 2022-06-26 16:55 | Inpatient (IN) | payer OTHER ==
[~2022-06-26] VITALS: Ht 177.8 cm; Wt 87.9 kg
[2022-06-26 18:30] LABS: Basophils # (auto) 0.1 10 ^3/uL (0-0.2); Basophils % (auto) 1.2 % (0.0-2.0); Eosinophils # (auto) 0.2 10 ^3/uL (0-0.8); Eosinophils % (auto) 3.4 % (0.0-7.0); Hematocrit 48.9 % (41.0-53.0); Lymphocytes # (auto) 1.2 10 ^3/uL (0.4-5.4); Lymphocytes % (auto) 19.7 % (10.0-50.0); Mean Corpuscular Hemoglobin 31.6 pg (28.0-32.0); Mean Corpuscular Hgb Conc. 32.7 g/dL (32.0-36.0); Mean Corpuscular Volume 96.6 fL (80.0-100.0); Monocytes # (auto) 0.5 10 ^3/uL (0-1.3); Monocytes % (auto) 7.9 % (0.0-12.0); Neutrophils # (auto) 4.3 10 ^3/uL (1.6-8.6); Neutrophils % (auto) 67.8 % (37.0-80.0); Nucleated Red Blood Cells % 0.1 %; Red Blood Cells 5.06 10^6/uL (4.5-5.90); Red Cell Distribution Width 14.6 % (11.8-14.3); White Blood Cell 6.3 10^3/uL (4.4-10.8)
[2022-06-26 18:42] LABS: Albumin 3.6 g/dL (3.4-5.0); Calcium 9.4 mg/dL (8.5-10.1); Potassium 4.2 mmol/L (3.5-5.1)
[2022-06-26 18:45] LABS: Bilirubin, Total 1.1 mg/dL (0.2-1.0); Total Protein 7.6 g/dL (6.4-8.2)
[2022-06-26 19:55] LABS: Urine Bacteria NONE SEEN /hpf (None Seen); Urine Blood Negative /uL (Negative); Urine Hyaline Cast FEW /lpf (0 - 2); Urine Mucus FEW (None Seen); Urine Specific Gravity 1.029 (1.001-1.035); Urine WBC 2 /hpf (0 - 3)
[2022-06-27] MEDS ORDERED: FUROSEMIDE 40 MG/4 ML VIAL IV ONE (03:00)
[2022-06-27] MEDS ORDERED: NITROGLYCERIN 0.4 MG SL TAB SL PRN (03:00)
[2022-06-27] MEDS ORDERED: ACETAMINOPHEN 325 MG TAB PO PRN (03:00)
[2022-06-27] MEDS ORDERED: TEMAZEPAM 15 MG CAP PO PRN (03:00)
[2022-06-27] MEDS ORDERED: DEXTROSE (50%) 50ML SYRG IV PRN (03:00)
[2022-06-27] MEDS ORDERED: MORPHINE SULFATE INJ 2 MG/ml SYRG IV PRN (03:00)
[2022-06-27] MEDS ORDERED: ONDANSETRON HCL 4 MG/2 ML VIAL IV PRN (03:00)
[2022-06-27] MEDS ORDERED: HYDROmorphone HCL 2 MG/ML VL/or syr IV ONE (03:15)
[2022-06-27] MEDS: ACCU-CHEK COMFORT CURVE STRIP VI SCH ×4 (06:56→22:12)
[2022-06-27] MEDS: InsuLIN REG 1unit/0.01ml Soln (100units/ml) SC SCH ×4 (06:58→23:05)
[2022-06-27] MEDS: ENOXAPARIN SOD 40 MG/0.4 ML SYRINGE SC SCH ×2 (09:53→10:01)
[2022-06-27] MEDS: ASPirin 81 mg TAB PO SCH (09:54)
[2022-06-27] MEDS: CARVEDILOL 12.5 MG TAB PO SCH ×2 (09:56→22:00)
[2022-06-27] MEDS: FUROSEMIDE 20 MG/2 ML VIAL IV SCH (18:36)
[2022-06-27] MEDS ORDERED: HYDROcodone-ACET 5/325MG TAB PO ONE (20:45)
[2022-06-27] MEDS: ATORVASTATIN 20 MG TAB PO SCH (22:04)
[2022-06-28 00:34] VITALS: BP 108/76
[2022-06-28] MEDS ORDERED: ATOR10TA PO (02:28)
[2022-06-28] MEDS ORDERED: CAR3125T PO (02:29)
[2022-06-28] MEDS ORDERED: METF-929 PO (02:29)
[2022-06-28] MEDS: FUROSEMIDE 20 MG/2 ML VIAL IV SCH (05:51)
[2022-06-28] MEDS: InsuLIN REG 1unit/0.01ml Soln (100units/ml) SC SCH ×4 (06:06→22:00)
[2022-06-28] MEDS: ACCU-CHEK COMFORT CURVE STRIP VI SCH ×4 (06:08→22:00)
[2022-06-28 07:19] LABS: Basophils # (auto) 0.1 10 ^3/uL (0-0.2); Basophils % (auto) 1.4 % (0.0-2.0); Eosinophils # (auto) 0.3 10 ^3/uL (0-0.8); Eosinophils % (auto) 4.8 % (0.0-7.0); Hematocrit 44.5 % (41.0-53.0); Hemoglobin 14.8 g/dL (13.5-17.5); Lymphocytes # (auto) 1.3 10 ^3/uL (0.4-5.4); Lymphocytes % (auto) 24.2 % (10.0-50.0); Mean Corpuscular Hgb Conc. 33.3 g/dL (32.0-36.0); Monocytes # (auto) 0.7 10 ^3/uL (0-1.3); Neutrophils # (auto) 3.2 10 ^3/uL (1.6-8.6); Neutrophils % (auto) 57.6 % (37.0-80.0); Nucleated Red Blood Cells % 0.2 %; Red Blood Cells 4.64 10^6/uL (4.5-5.90); Red Cell Distribution Width 14.7 % (11.8-14.3); White Blood Cell 5.5 10^3/uL (4.4-10.8)
[2022-06-28 08:34] VITALS: BP 135/80
[2022-06-28 08:38] LABS: Albumin 3.2 g/dL (3.4-5.0); Calcium 9.3 mg/dL (8.5-10.1); Potassium 3.8 mmol/L (3.5-5.1)
[2022-06-28 08:40] LABS: BUN/Creatinine Ratio 20.1
[2022-06-28 08:46] LABS: Bilirubin, Total 1.3 mg/dL (0.2-1.0); Total Protein 6.7 g/dL (6.4-8.2)
[2022-06-28] MEDS: ASPirin 81 mg TAB PO SCH (09:29)
[2022-06-28] MEDS: ENOXAPARIN SOD 40 MG/0.4 ML SYRINGE SC SCH (09:30)
[2022-06-28] MEDS: CARVEDILOL 12.5 MG TAB PO SCH ×2 (09:30→22:00)
[2022-06-28 12:44] VITALS: BP 124/84
[2022-06-28 16:15] VITALS: BP 136/87
[2022-06-28] MEDS: FUROSEMIDE 40 MG/4 ML VIAL IV SCH (18:27)
[2022-06-28] MEDS: ATORVASTATIN 20 MG TAB PO SCH (22:00)
[2022-06-28] MEDS ORDERED: HYDROcodone-ACET 5/325MG TAB PO ONE (23:15)
[2022-06-29] MEDS: FUROSEMIDE 40 MG/4 ML VIAL IV SCH (06:00)
[2022-06-29] MEDS: InsuLIN REG 1unit/0.01ml Soln (100units/ml) SC SCH (06:33)
[2022-06-29] MEDS: ACCU-CHEK COMFORT CURVE STRIP VI SCH (06:33)
[2022-06-29] MEDS: CARVEDILOL 12.5 MG TAB PO SCH (09:31)
[2022-06-29] MEDS: ASPirin 81 mg TAB PO SCH (09:31)
[2022-06-29] MEDS: ENOXAPARIN SOD 40 MG/0.4 ML SYRINGE SC SCH (09:32)
[2022-06-29 09:52] VITALS: BP 136/87
== END 2022-06-29 10:18 | disposition home or self-care (01) | DRG 194 ==
LOC: ER 16:55 → TELE 06-27 03:00 → TELE-CENTR 06-27 23:41
PROVIDERS: ADMIT Nurse Practitioner; ATTEND Family Medicine
DX: I11.0 Hypertensive heart disease with heart failure (principal); I42.0 Dilated cardiomyopathy; I50.82 Biventricular heart failure; F15.10 Other stimulant abuse, uncomplicated; E78.5 Hyperlipidemia, unspecified; E11.9 Type 2 diabetes mellitus without complications; F17.210 Nicotine dependence, cigarettes, uncomplicated; Z20.822 Contact with and (suspected) exposure to COVID-19; E78.00 Pure hypercholesterolemia, unspecified; F10.10 Alcohol abuse, uncomplicated; Z91.199 Patient's noncompliance with other medical treatment and regimen due to unspecified reason; Z80.42 Family history of malignant neoplasm of prostate; Z91.14 Patient's other noncompliance with medication regimen; Z71.41 Alcohol abuse counseling and surveillance of alcoholic
CPT/HCPCS: 36415; 71045; 80053; 81001; 82962; 83880; 84484; 85025; 87426; 93005; 96374; 96375; 99291; G0378; J1815

== ENCOUNTER 2022-07-01 20:43 | Inpatient (IN) | payer OTHER ==
[~2022-07-01] VITALS: Ht 177.8 cm; Wt 82.4 kg
[~2022-07-01 20:43] MED LIST changes: +ATOR10TA PO; +CAR3125T PO; +METF-929 PO
[2022-07-01 22:27] LABS: Basophils # (auto) 0.1 10 ^3/uL (0-0.2); Basophils % (auto) 0.8 % (0.0-2.0); Eosinophils # (auto) 0.3 10 ^3/uL (0-0.8); Eosinophils % (auto) 4.2 % (0.0-7.0); Hematocrit 45.3 % (41.0-53.0); Hemoglobin 14.6 g/dL (13.5-17.5); Lymphocytes # (auto) 1.2 10 ^3/uL (0.4-5.4); Lymphocytes % (auto) 18.4 % (10.0-50.0); Mean Corpuscular Hgb Conc. 32.2 g/dL (32.0-36.0); Mean Corpuscular Volume 96.3 fL (80.0-100.0); Monocytes # (auto) 0.6 10 ^3/uL (0-1.3); Monocytes % (auto) 9.3 % (0.0-12.0); Neutrophils # (auto) 4.4 10 ^3/uL (1.6-8.6); Neutrophils % (auto) 67.3 % (37.0-80.0); Nucleated Red Blood Cells % 0.1 %; Red Cell Distribution Width 14.9 % (11.8-14.3); White Blood Cell 6.5 10^3/uL (4.4-10.8)
[2022-07-01 22:43] LABS: Albumin 3.2 g/dL (3.4-5.0); BUN/Creatinine Ratio 19.5; Calcium 8.8 mg/dL (8.5-10.1); INR 1.11 (0.9-1.15); Magnesium 2.2 mg/dL (1.6-2.6); Partial Thromboplastin Time 28.9 sec (24.6-33.4); Potassium 3.5 mmol/L (3.5-5.1)
[2022-07-01 22:46] LABS: Bilirubin, Total 0.6 mg/dL (0.2-1.0); Total Protein 7.2 g/dL (6.4-8.2)
[2022-07-02] MEDS ORDERED: FUROSEMIDE 100 MG/10ML VIAL IV ONE (08:45)
[2022-07-02 12:33] LABS: Urine Bacteria None Seen /hpf (None Seen); Urine WBC None Seen /hpf (0 - 3)
[2022-07-02] MEDS ORDERED: ACETAMINOPHEN 325 MG TAB PO PRN (12:45)
[2022-07-02] MEDS ORDERED: NITROGLYCERIN 0.4 MG SL TAB SL PRN (12:45)
[2022-07-02] MEDS ORDERED: MORPHINE SULFATE INJ 2 MG/ml SYRG IV PRN (12:45)
[2022-07-02] MEDS ORDERED: POTASSIUM EFFERVESENT TAB 25 MEQ PO ONE (12:45)
[2022-07-02] MEDS ORDERED: DEXTROSE (50%) 50ML SYRG IV PRN (13:00)
[2022-07-02] MEDS ORDERED: PANTOPRAZOLE 40 MG TAB PO ONE (13:00)
[2022-07-02 13:33] LABS: Urine Blood Negative /uL (Negative); Urine Specific Gravity 1.011 (1.001-1.035)
[2022-07-02] MEDS: ACCU-CHEK COMFORT CURVE STRIP VI SCH ×2 (17:50→22:15)
[2022-07-02] MEDS: InsuLIN REG 1unit/0.01ml Soln (100units/ml) SC SCH ×2 (17:59→22:27)
[2022-07-02] MEDS: FUROSEMIDE 100 MG/10ML VIAL IV SCH (18:00)
[2022-07-02] MEDS: HYDROcodone-ACET 5/325MG TAB PO PRN (22:03)
[2022-07-02] MEDS: ATORVASTATIN 20 MG TAB PO SCH (22:03)
[2022-07-02 22:14] VITALS: BP 141/94
[2022-07-02 22:31] VITALS: BP 141/94
[2022-07-03 04:41] VITALS: BP 120/83
[2022-07-03] MEDS: FUROSEMIDE 100 MG/10ML VIAL IV SCH ×2 (05:18→17:23)
[2022-07-03] MEDS: ACCU-CHEK COMFORT CURVE STRIP VI SCH ×4 (05:24→21:54)
[2022-07-03 05:32] LABS: Basophils # (auto) 0.1 10 ^3/uL (0-0.2); Eosinophils # (auto) 0.3 10 ^3/uL (0-0.8); Eosinophils % (auto) 5.9 % (0.0-7.0); Hematocrit 43.7 % (41.0-53.0); Hemoglobin 14.3 g/dL (13.5-17.5); Lymphocytes # (auto) 1.3 10 ^3/uL (0.4-5.4); Lymphocytes % (auto) 22.6 % (10.0-50.0); Mean Corpuscular Hemoglobin 31.2 pg (28.0-32.0); Mean Corpuscular Hgb Conc. 32.7 g/dL (32.0-36.0); Mean Corpuscular Volume 95.6 fL (80.0-100.0); Monocytes # (auto) 0.7 10 ^3/uL (0-1.3); Monocytes % (auto) 13.2 % (0.0-12.0); Neutrophils # (auto) 3.1 10 ^3/uL (1.6-8.6); Neutrophils % (auto) 56.3 % (37.0-80.0); Nucleated Red Blood Cells % 0.1 %; Red Blood Cells 4.57 10^6/uL (4.5-5.90); Red Cell Distribution Width 14.7 % (11.8-14.3); White Blood Cell 5.5 10^3/uL (4.4-10.8)
[2022-07-03 05:42] LABS: Calcium 8.4 mg/dL (8.5-10.1); Potassium 3.5 mmol/L (3.5-5.1)
[2022-07-03 05:47] LABS: Albumin 3.2 g/dL (3.4-5.0); BUN/Creatinine Ratio 22.1; Total Protein 6.6 g/dL (6.4-8.2)
[2022-07-03] MEDS: HYDROcodone-ACET 5/325MG TAB PO PRN (05:51)
[2022-07-03] MEDS: InsuLIN REG 1unit/0.01ml Soln (100units/ml) SC SCH ×4 (05:55→21:53)
[2022-07-03 08:30] VITALS: BP 146/106
[2022-07-03 09:03] VITALS: BP 146/100
[2022-07-03] MEDS ORDERED: ASPirin-EC 81 mg tab PO SCH (10:00)
[2022-07-03] MEDS ORDERED: CARVEDILOL 3.125 MG TAB PO SCH (10:00)
[2022-07-03] MEDS: GABAPENTIN 300 MG CAP PO SCH ×2 (10:00→10:16)
[2022-07-03] MEDS ORDERED: ENOXAPARIN SOD 40 MG/0.4 ML SYRINGE SC SCH (10:00)
[2022-07-03] MEDS ORDERED: PANTOPRAZOLE 40 MG TAB PO SCH (10:00)
[2022-07-03] MEDS ORDERED: LISINOPRIL 10 MG TAB PO SCH (10:00)
[2022-07-03] MEDS ORDERED: OPTISON 3ml Vial for INJ IV ONE ×2 (11:09→11:15)
[2022-07-03 13:52] VITALS: BP 132/96
[2022-07-03 17:09] VITALS: BP 144/73
[2022-07-03 20:00] VITALS: BP 144/73
[2022-07-03] MEDS: ATORVASTATIN 20 MG TAB PO SCH (21:53)
[2022-07-04] MEDS: InsuLIN REG 1unit/0.01ml Soln (100units/ml) SC SCH (05:05)
[2022-07-04] MEDS: ACCU-CHEK COMFORT CURVE STRIP VI SCH (05:06)
[2022-07-04] MEDS: FUROSEMIDE 100 MG/10ML VIAL IV SCH (05:07)
== END 2022-07-04 08:04 | disposition left against medical advice (07) | DRG 194 ==
LOC: EDUNIT# 20:43 → EDBD 20:43 → ER 20:45 → TELE 07-02 12:43 → TELE-WESTW 07-02 21:14
PROVIDERS: ADMIT Nurse Practitioner Family; ATTEND Internal Medicine
DX: I11.0 Hypertensive heart disease with heart failure (principal); N17.0 Acute kidney failure with tubular necrosis; E44.1 Mild protein-calorie malnutrition; F15.10 Other stimulant abuse, uncomplicated; E66.01 Morbid (severe) obesity due to excess calories; Z53.29 Procedure and treatment not carried out because of patient's decision for other reasons; Z68.26 Body mass index [BMI] 26.0-26.9, adult; E11.9 Type 2 diabetes mellitus without complications; E78.5 Hyperlipidemia, unspecified; F17.210 Nicotine dependence, cigarettes, uncomplicated; I42.9 Cardiomyopathy, unspecified; Z20.822 Contact with and (suspected) exposure to COVID-19; Z82.49 Family history of ischemic heart disease and other diseases of the circulatory system; F19.10 Other psychoactive substance abuse, uncomplicated; I50.21 Acute systolic (congestive) heart failure
CPT/HCPCS: 36415; 71045; 80053; 81001; 82553; 82962; 83036; 83690; 83735; 83880; 84132; 84443; 84484; 85025; 85610; 85730; 87081; 87426; 93306; 96374; G0378; J1815; Q9956

== ENCOUNTER 2022-07-10 17:05 | Inpatient (IN) | payer OTHER ==
[~2022-07-10] VITALS: Ht 177.8 cm; Wt 90.9 kg
[2022-07-10 17:05] VITALS: BP 127/84
[2022-07-10 17:32] LABS: Basophils # (auto) 0.1 10 ^3/uL (0-0.2); Basophils % (auto) 1.4 % (0.0-2.0); Eosinophils # (auto) 0.1 10 ^3/uL (0-0.8); Eosinophils % (auto) 1.7 % (0.0-7.0); Hematocrit 48.2 % (41.0-53.0); Hemoglobin 16.2 g/dL (13.5-17.5); Lymphocytes # (auto) 0.9 10 ^3/uL (0.4-5.4); Lymphocytes % (auto) 13.3 % (10.0-50.0); Mean Corpuscular Hgb Conc. 33.6 g/dL (32.0-36.0); Mean Corpuscular Volume 95.2 fL (80.0-100.0); Monocytes # (auto) 0.8 10 ^3/uL (0-1.3); Monocytes % (auto) 12.1 % (0.0-12.0); Neutrophils # (auto) 4.7 10 ^3/uL (1.6-8.6); Neutrophils % (auto) 71.5 % (37.0-80.0); Nucleated Red Blood Cells % 0.1 %; Red Blood Cells 5.07 10^6/uL (4.5-5.90); Red Cell Distribution Width 14.5 % (11.8-14.3); White Blood Cell 6.6 10^3/uL (4.4-10.8)
[2022-07-10 17:52] LABS: INR 1.07 (0.9-1.15); Partial Thromboplastin Time 29.7 sec (24.6-33.4)
[2022-07-10 17:54] LABS: Albumin 3.5 g/dL (3.4-5.0); BUN/Creatinine Ratio 15.6; Potassium 3.5 mmol/L (3.5-5.1)
[2022-07-10 17:57] LABS: Bilirubin, Total 1.3 mg/dL (0.2-1.0); Total Protein 7.8 g/dL (6.4-8.2)
[2022-07-10] MEDS ORDERED: MORPHINE SULFATE INJ 2 MG/ml SYRG IV PRN (21:30)
[2022-07-10] MEDS ORDERED: TEMAZEPAM 15 MG CAP PO PRN (21:30)
[2022-07-10] MEDS ORDERED: NITROGLYCERIN 0.4 MG SL TAB SL PRN (21:30)
[2022-07-10] MEDS ORDERED: FUROSEMIDE 40 MG/4 ML VIAL IV ONE (21:30)
[2022-07-10] MEDS ORDERED: ACETAMINOPHEN 325 MG TAB PO PRN (21:30)
[2022-07-10] MEDS ORDERED: DEXTROSE (50%) 50ML SYRG IV PRN (21:30)
[2022-07-10] MEDS ORDERED: ONDANSETRON HCL 4 MG/2 ML VIAL IV PRN (21:30)
[2022-07-10] MEDS ORDERED: InsuLIN REG 1unit/0.01ml Soln (100units/ml) SC SCH (22:00)
[2022-07-10] MEDS ORDERED: ACCU-CHEK COMFORT CURVE STRIP VI SCH (22:00)
[2022-07-10] MEDS ORDERED: ATORVASTATIN 20 MG TAB PO SCH (22:00)
[2022-07-10] MEDS ORDERED: CARVEDILOL 3.125 MG TAB PO SCH (22:00)
[2022-07-11] MEDS ORDERED: FUROSEMIDE 40 MG/4 ML VIAL IV SCH (06:00)
[2022-07-11] MEDS ORDERED: GABAPENTIN 300 MG CAP PO SCH (10:00)
[2022-07-11] MEDS ORDERED: ENOXAPARIN SOD 40 MG/0.4 ML SYRINGE SC SCH (10:00)
[2022-07-11] MEDS ORDERED: LISINOPRIL 10 MG TAB PO SCH (10:00)
[2022-07-11] MEDS ORDERED: ASPirin 81 mg TAB PO SCH (10:00)
== END 2022-07-11 06:03 | disposition left against medical advice (07) | DRG 194 ==
LOC: ER 17:05 → EDBD 17:05 → OVERFLOW 17:11
PROVIDERS: ADMIT Nurse Practitioner; ATTEND Nurse Practitioner
DX: I11.0 Hypertensive heart disease with heart failure (principal); N17.9 Acute kidney failure, unspecified; I24.9 Acute ischemic heart disease, unspecified; I42.9 Cardiomyopathy, unspecified; E11.9 Type 2 diabetes mellitus without complications; I50.23 Acute on chronic systolic (congestive) heart failure; E78.5 Hyperlipidemia, unspecified; F17.210 Nicotine dependence, cigarettes, uncomplicated; Z80.42 Family history of malignant neoplasm of prostate; Z82.49 Family history of ischemic heart disease and other diseases of the circulatory system; Z91.199 Patient's noncompliance with other medical treatment and regimen due to unspecified reason; Z53.21 Procedure and treatment not carried out due to patient leaving prior to being seen by health care provider
CPT/HCPCS: 36415; 71045; 80053; 82962; 83735; 83880; 84484; 85025; 85610; 85730; 93005; G0378

== ENCOUNTER 2022-08-06 17:40 | Emergency (ER) | payer OTHER ==
[~2022-08-06] VITALS: Ht 177.8 cm; Wt 86.0 kg
[2022-08-06 18:01] VITALS: BP 130/92
[2022-08-06 18:18] LABS: Basophils # (auto) 0.1 10 ^3/uL (0-0.2); Basophils % (auto) 1.2 % (0.0-2.0); Eosinophils # (auto) 0.2 10 ^3/uL (0-0.8); Eosinophils % (auto) 2.4 % (0.0-7.0); Hematocrit 47.2 % (41.0-53.0); Hemoglobin 16.3 g/dL (13.5-17.5); Lymphocytes # (auto) 1.2 10 ^3/uL (0.4-5.4); Lymphocytes % (auto) 17.1 % (10.0-50.0); Mean Corpuscular Hemoglobin 32.6 pg (28.0-32.0); Mean Corpuscular Hgb Conc. 34.5 g/dL (32.0-36.0); Mean Corpuscular Volume 94.7 fL (80.0-100.0); Monocytes # (auto) 0.8 10 ^3/uL (0-1.3); Neutrophils # (auto) 4.9 10 ^3/uL (1.6-8.6); Neutrophils % (auto) 68.3 % (37.0-80.0); Nucleated Red Blood Cells % 0.1 %; Red Blood Cells 4.99 10^6/uL (4.5-5.90); Red Cell Distribution Width 14.9 % (11.8-14.3); White Blood Cell 7.2 10^3/uL (4.4-10.8)
[2022-08-06 18:46] LABS: Albumin 3.6 g/dL (3.4-5.0); BUN/Creatinine Ratio 19.9; Calcium 9.2 mg/dL (8.5-10.1)
[2022-08-06 18:49] LABS: Bilirubin, Total 1.6 mg/dL (0.2-1.0); Total Protein 7.8 g/dL (6.4-8.2)
== END 2022-08-07 00:56 | disposition home or self-care (01) ==
LOC: ER 17:40
DX: R07.89 Other chest pain (principal); F15.10 Other stimulant abuse, uncomplicated; I11.0 Hypertensive heart disease with heart failure; I50.9 Heart failure, unspecified; E78.5 Hyperlipidemia, unspecified
CPT/HCPCS: 36415; 71045; 80053; 84484; 85025; 93005

== ENCOUNTER 2022-09-03 17:39 | Inpatient (IN) | payer OTHER ==
[~2022-09-03] VITALS: Ht 177.8 cm; Wt 88.0 kg
[2022-09-03 18:22] LABS: Albumin 3.3 g/dL (3.4-5.0); Basophils # (auto) 0.1 10 ^3/uL (0-0.2); Basophils % (auto) 0.8 % (0.0-2.0); Calcium 8.9 mg/dL (8.5-10.1); Eosinophils # (auto) 0.2 10 ^3/uL (0-0.8); Eosinophils % (auto) 3.3 % (0.0-7.0); Hematocrit 48.6 % (41.0-53.0); Hemoglobin 16.1 g/dL (13.5-17.5); Lymphocytes # (auto) 1.2 10 ^3/uL (0.4-5.4); Lymphocytes % (auto) 17.7 % (10.0-50.0); Magnesium 2.3 mg/dL (1.6-2.6); Mean Corpuscular Hemoglobin 31.6 pg (28.0-32.0); Mean Corpuscular Hgb Conc. 33.1 g/dL (32.0-36.0); Mean Corpuscular Volume 95.5 fL (80.0-100.0); Monocytes # (auto) 0.6 10 ^3/uL (0-1.3); Monocytes % (auto) 9.5 % (0.0-12.0); Neutrophils # (auto) 4.6 10 ^3/uL (1.6-8.6); Neutrophils % (auto) 68.7 % (37.0-80.0); Nucleated Red Blood Cells % 0.3 %; Potassium 3.4 mmol/L (3.5-5.1); Red Blood Cells 5.08 10^6/uL (4.5-5.90); White Blood Cell 6.6 10^3/uL (4.4-10.8)
[2022-09-03 18:25] LABS: BUN/Creatinine Ratio 15.6 (10.0-20.0); Total Protein 8.1 g/dL (6.4-8.2)
[2022-09-03] MEDS ORDERED: ACETAMINOPHEN 325 MG TAB PO PRN (21:00)
[2022-09-03] MEDS ORDERED: ONDANSETRON HCL 4 MG/2 ML VIAL IV PRN (21:00)
[2022-09-03] MEDS ORDERED: NITROGLYCERIN 0.4 MG SL TAB SL PRN (21:00)
[2022-09-03] MEDS ORDERED: DEXTROSE (50%) 50ML SYRG IV PRN (21:00)
[2022-09-03] MEDS ORDERED: MORPHINE SULFATE INJ 2 MG/ml SYRG IV PRN (21:00)
[2022-09-03] MEDS ORDERED: POTASSIUM CHL 20 Meq TABLET PO ONE (21:00)
[2022-09-03] MEDS ORDERED: TEMAZEPAM 15 MG CAP PO PRN (21:00)
[2022-09-03] MEDS ORDERED: FUROSEMIDE 40 MG/4 ML VIAL IV ONE (21:00)
[2022-09-03] MEDS ORDERED: ATORVASTATIN 20 MG TAB PO SCH (22:00)
[2022-09-03] MEDS: ACCU-CHEK COMFORT CURVE STRIP VI SCH (23:30)
[2022-09-03] MEDS: InsuLIN REG 1unit/0.01ml Soln (100units/ml) SC SCH (23:30)
[2022-09-03] MEDS: CARVEDILOL 3.125 MG TAB PO SCH (23:36)
[2022-09-04] MEDS: GABAPENTIN 100 MG CAP PO ONE ×2 (01:34→01:38)
[2022-09-04 05:32] LABS: Basophils # (auto) 0.2 10 ^3/uL (0-0.2); Basophils % (auto) 3.4 % (0.0-2.0); Eosinophils # (auto) 0.4 10 ^3/uL (0-0.8); Eosinophils % (auto) 5.8 % (0.0-7.0); Hematocrit 42.8 % (41.0-53.0); Hemoglobin 14.3 g/dL (13.5-17.5); Lymphocytes # (auto) 0.9 10 ^3/uL (0.4-5.4); Lymphocytes % (auto) 14.8 % (10.0-50.0); Mean Corpuscular Hemoglobin 31.8 pg (28.0-32.0); Mean Corpuscular Hgb Conc. 33.5 g/dL (32.0-36.0); Mean Corpuscular Volume 94.8 fL (80.0-100.0); Monocytes # (auto) 0.5 10 ^3/uL (0-1.3); Monocytes % (auto) 8.2 % (0.0-12.0); Neutrophils # (auto) 4.3 10 ^3/uL (1.6-8.6); Neutrophils % (auto) 67.8 % (37.0-80.0); Nucleated Red Blood Cells % 0.3 %; Red Blood Cells 4.51 10^6/uL (4.5-5.90); Red Cell Distribution Width 15.1 % (11.8-14.3); White Blood Cell 6.4 10^3/uL (4.4-10.8)
[2022-09-04 05:50] LABS: Calcium 8.4 mg/dL (8.5-10.1); Potassium 3.6 mmol/L (3.5-5.1)
[2022-09-04 05:55] LABS: Albumin 2.8 g/dL (3.4-5.0); BUN/Creatinine Ratio 14.5 (10.0-20.0); Bilirubin, Total 0.9 mg/dL (0.2-1.0); Total Protein 6.9 g/dL (6.4-8.2)
[2022-09-04] MEDS ORDERED: FUROSEMIDE 20 MG/2 ML VIAL IV SCH (06:00)
[2022-09-04] MEDS: InsuLIN REG 1unit/0.01ml Soln (100units/ml) SC SCH (07:00)
[2022-09-04] MEDS: ACCU-CHEK COMFORT CURVE STRIP VI SCH (07:48)
[2022-09-04] MEDS ORDERED: PANTOPRAZOLE 40 MG TAB PO SCH (10:00)
[2022-09-04] MEDS ORDERED: ASPirin 81 mg TAB PO SCH (10:00)
[2022-09-04] MEDS ORDERED: ENOXAPARIN SOD 40 MG/0.4 ML SYRINGE SC SCH (10:00)
[2022-09-04] MEDS ORDERED: LISINOPRIL 10 MG TAB PO SCH (10:00)
[2022-09-04] MEDS: CARVEDILOL 3.125 MG TAB PO SCH (10:30)
[2022-09-04 11:00] VITALS: BP 119/82
[2022-09-04] MEDS ORDERED: GABAPENTIN 300 MG CAP PO ONE (11:00)
== END 2022-09-04 11:55 | disposition left against medical advice (07) | DRG 194 ==
LOC: ER 17:39 → TELE 21:15
PROVIDERS: ADMIT Nurse Practitioner; ATTEND Internal Medicine
DX: I11.0 Hypertensive heart disease with heart failure (principal); E11.9 Type 2 diabetes mellitus without complications; E78.5 Hyperlipidemia, unspecified; Z20.822 Contact with and (suspected) exposure to COVID-19; F15.10 Other stimulant abuse, uncomplicated; I50.43 Acute on chronic combined systolic (congestive) and diastolic (congestive) heart failure; Z82.49 Family history of ischemic heart disease and other diseases of the circulatory system
CPT/HCPCS: 36415; 70486; 71046; 80053; 82962; 83735; 83880; 84484; 85025; 85379; 87426; 93005; 96372; 96374; G0378

== ENCOUNTER 2022-09-13 21:05 | Emergency (ER) | payer OTHER ==
[~2022-09-13] VITALS: Ht 177.8 cm; Wt 88.8 kg
[2022-09-13 21:28] LABS: Basophils # (auto) 0.1 10 ^3/uL (0-0.2); Basophils % (auto) 1.8 % (0.0-2.0); Eosinophils # (auto) 0.3 10 ^3/uL (0-0.8); Hematocrit 47.9 % (41.0-53.0); Hemoglobin 15.8 g/dL (13.5-17.5); Lymphocytes # (auto) 1.1 10 ^3/uL (0.4-5.4); Lymphocytes % (auto) 16.7 % (10.0-50.0); Mean Corpuscular Hemoglobin 31.4 pg (28.0-32.0); Mean Corpuscular Volume 95.3 fL (80.0-100.0); Monocytes # (auto) 0.7 10 ^3/uL (0-1.3); Monocytes % (auto) 10.5 % (0.0-12.0); Neutrophils # (auto) 4.3 10 ^3/uL (1.6-8.6); Red Blood Cells 5.02 10^6/uL (4.5-5.90); Red Cell Distribution Width 15.2 % (11.8-14.3); White Blood Cell 6.5 10^3/uL (4.4-10.8)
[2022-09-13 21:48] LABS: Albumin 3.1 g/dL (3.4-5.0); Calcium 8.7 mg/dL (8.5-10.1); Potassium 3.8 mmol/L (3.5-5.1)
[2022-09-13 21:50] LABS: BUN/Creatinine Ratio 15.5 (10.0-20.0); Bilirubin, Total 0.9 mg/dL (0.2-1.0); Total Protein 7.8 g/dL (6.4-8.2)
[2022-09-13 23:07] LABS: Urine Bacteria NONE SEEN /hpf (None Seen); Urine Blood Negative /uL (Negative); Urine Mucus FEW (None Seen); Urine Specific Gravity 1.029 (1.001-1.035); Urine WBC 1 /hpf (0 - 3)
[2022-09-14 05:29] VITALS: BP 139/92
[2022-09-14] MEDS ORDERED: FUROSEMIDE 20 MG/2 ML VIAL IV ONE (06:45)
== END 2022-09-14 07:50 | disposition left against medical advice (07) ==
LOC: ER 21:05
DX: I11.0 Hypertensive heart disease with heart failure (principal); I50.9 Heart failure, unspecified; F17.210 Nicotine dependence, cigarettes, uncomplicated; F15.10 Other stimulant abuse, uncomplicated; E11.9 Type 2 diabetes mellitus without complications; E78.5 Hyperlipidemia, unspecified
CPT/HCPCS: 36415; 71046; 80053; 81001; 83880; 84484; 85025; 93005

== ENCOUNTER 2022-09-24 16:46 | Inpatient (IN) | payer OTHER ==
[~2022-09-24] VITALS: Ht 177.8 cm; Wt 72.7 kg
[2022-09-24 17:36] LABS: Basophils # (auto) 0.1 10 ^3/uL (0-0.2); Basophils % (auto) 1.3 % (0.0-2.0); Eosinophils # (auto) 0.1 10 ^3/uL (0-0.8); Eosinophils % (auto) 1.4 % (0.0-7.0); Hematocrit 44.8 % (41.0-53.0); Hemoglobin 14.8 g/dL (13.5-17.5); Lymphocytes # (auto) 1.4 10 ^3/uL (0.4-5.4); Lymphocytes % (auto) 19.2 % (10.0-50.0); Mean Corpuscular Hemoglobin 30.9 pg (28.0-32.0); Mean Corpuscular Hgb Conc. 33.1 g/dL (32.0-36.0); Mean Corpuscular Volume 93.4 fL (80.0-100.0); Monocytes # (auto) 0.9 10 ^3/uL (0-1.3); Monocytes % (auto) 12.4 % (0.0-12.0); Neutrophils # (auto) 4.8 10 ^3/uL (1.6-8.6); Neutrophils % (auto) 65.7 % (37.0-80.0); Nucleated Red Blood Cells % 0.1 %; Red Blood Cells 4.79 10^6/uL (4.5-5.90); Red Cell Distribution Width 15.1 % (11.8-14.3); White Blood Cell 7.3 10^3/uL (4.4-10.8)
[2022-09-24 17:47] LABS: Albumin 3.2 g/dL (3.4-5.0); Magnesium 2.3 mg/dL (1.6-2.6); Potassium 3.7 mmol/L (3.5-5.1)
[2022-09-24 17:51] LABS: Bilirubin, Total 1.8 mg/dL (0.2-1.0); Total Protein 7.4 g/dL (6.4-8.2)
[2022-09-24 17:55] LABS: INR 1.28 (0.9-1.15); Partial Thromboplastin Time 31.3 sec (24.6-33.4)
[2022-09-24] MEDS ORDERED: GABAPENTIN 300 MG CAP PO ONE (19:15)
[2022-09-24] MEDS ORDERED: FUROSEMIDE 100 MG/10ML VIAL IV ONE (19:15)
[2022-09-24] MEDS ORDERED: DEXTROSE (50%) 50ML SYRG IV PRN (22:45)
[2022-09-24] MEDS ORDERED: NITROGLYCERIN 0.4 MG SL TAB SL PRN (22:45)
[2022-09-24] MEDS ORDERED: ACETAMINOPHEN 325 MG TAB PO PRN (22:45)
[2022-09-24] MEDS ORDERED: MORPHINE SULFATE INJ 2 MG/ml SYRG IV PRN (22:45)
[2022-09-24 22:51] LABS: Urine Bacteria NONE SEEN /hpf (None Seen); Urine Blood Negative /uL (Negative); Urine Hyaline Cast FEW /lpf (0 - 2); Urine Specific Gravity 1.005 (1.001-1.035); Urine WBC <1 /hpf (0 - 3)
[2022-09-25 06:18] LABS: Basophils # (auto) 0.1 10 ^3/uL (0-0.2); Eosinophils # (auto) 0.2 10 ^3/uL (0-0.8); Hematocrit 42.4 % (41.0-53.0); Hemoglobin 14.5 g/dL (13.5-17.5); Lymphocytes # (auto) 1.4 10 ^3/uL (0.4-5.4); Lymphocytes % (auto) 22.7 % (10.0-50.0); Mean Corpuscular Hemoglobin 31.8 pg (28.0-32.0); Mean Corpuscular Hgb Conc. 34.4 g/dL (32.0-36.0); Mean Corpuscular Volume 92.7 fL (80.0-100.0); Monocytes # (auto) 0.8 10 ^3/uL (0-1.3); Monocytes % (auto) 12.8 % (0.0-12.0); Neutrophils # (auto) 3.6 10 ^3/uL (1.6-8.6); Neutrophils % (auto) 58.5 % (37.0-80.0); Nucleated Red Blood Cells % 0.2 %; Red Blood Cells 4.57 10^6/uL (4.5-5.90); Red Cell Distribution Width 15.5 % (11.8-14.3); White Blood Cell 6.1 10^3/uL (4.4-10.8)
[2022-09-25] MEDS: ACCU-CHEK COMFORT CURVE STRIP VI SCH ×4 (06:21→23:25)
[2022-09-25] MEDS: FUROSEMIDE 40 MG/4 ML VIAL IV SCH ×2 (06:25→17:26)
[2022-09-25 06:30] LABS: BUN/Creatinine Ratio 18.4 (10.0-20.0); Calcium 9.1 mg/dL (8.5-10.1); Potassium 3.4 mmol/L (3.5-5.1)
[2022-09-25] MEDS: InsuLIN REG 1unit/0.01ml Soln (100units/ml) SC SCH ×4 (07:02→23:31)
[2022-09-25] MEDS ORDERED: CARVEDILOL 3.125 MG TAB ONE (09:19)
[2022-09-25] MEDS: LISINOPRIL 10 MG TAB PO SCH (09:24)
[2022-09-25] MEDS: CARVEDILOL 3.125 MG TAB PO SCH ×2 (09:24→22:06)
[2022-09-25] MEDS: GABAPENTIN 300 MG CAP PO SCH ×2 (09:25→22:06)
[2022-09-25] MEDS: PANTOPRAZOLE 40 MG TAB PO SCH (09:25)
[2022-09-25] MEDS: ENOXAPARIN SOD 40 MG/0.4 ML SYRINGE SC SCH (09:26)
[2022-09-25] MEDS ORDERED: POTASSIUM CHL 20 Meq TABLET PO ONE (12:15)
[2022-09-25 13:03] LABS: Alcohol, Urine < 3.0 mg/dL (0-10); Amphetamine Screen, Urine POSITIVE (NEGATIVE); Barbiturate Scree,Urine NEGATIVE (NEGATIVE); Benzodiazephine Screen, Urine NEGATIVE (NEGATIVE); Cannabinoid Screen, Urine NEGATIVE (NEGATIVE); Cocaine Screen, Urine NEGATIVE (NEGATIVE); Opiate Scree,Urine NEGATIVE (NEGATIVE); Phencyclidine Screen, Urine NEGATIVE (NEGATIVE)
[2022-09-25] MEDS ORDERED: ATORVASTATIN 20 MG TAB PO SCH (22:00)
[2022-09-26] MEDS: FUROSEMIDE 40 MG/4 ML VIAL IV SCH (06:50)
[2022-09-26] MEDS: ACCU-CHEK COMFORT CURVE STRIP VI SCH ×2 (06:53→11:30)
[2022-09-26] MEDS: InsuLIN REG 1unit/0.01ml Soln (100units/ml) SC SCH ×3 (06:56→12:49)
[2022-09-26] MEDS: CARVEDILOL 3.125 MG TAB PO SCH (08:45)
[2022-09-26] MEDS: PANTOPRAZOLE 40 MG TAB PO SCH (08:45)
[2022-09-26] MEDS: GABAPENTIN 300 MG CAP PO SCH (08:45)
[2022-09-26] MEDS: LISINOPRIL 10 MG TAB PO SCH (08:46)
[2022-09-26] MEDS: ENOXAPARIN SOD 40 MG/0.4 ML SYRINGE SC SCH (08:48)
[2022-09-26 12:49] VITALS: BP 104/62
== END 2022-09-26 12:51 | disposition home or self-care (01) | DRG 194 ==
LOC: EDBD 16:46 → ER 16:46 → TELE 22:44
PROVIDERS: ADMIT Nurse Practitioner; ATTEND Internal Medicine
DX: I11.0 Hypertensive heart disease with heart failure (principal); N17.0 Acute kidney failure with tubular necrosis; I20.9 Angina pectoris, unspecified; I50.23 Acute on chronic systolic (congestive) heart failure; E11.9 Type 2 diabetes mellitus without complications; E78.5 Hyperlipidemia, unspecified; F15.10 Other stimulant abuse, uncomplicated; F17.210 Nicotine dependence, cigarettes, uncomplicated; Z82.49 Family history of ischemic heart disease and other diseases of the circulatory system; Z80.42 Family history of malignant neoplasm of prostate
CPT/HCPCS: 36415; 71045; 80048; 80053; 80307; 81001; 82962; 83735; 83880; 84484; 85025; 85610; 85730; 93005; 96374; G0378; J1815

== ENCOUNTER 2022-09-26 23:44 | Emergency (ER) | payer OTHER ==
[~2022-09-26] VITALS: Ht 177.8 cm; Wt 81.8 kg
[2022-09-26 23:45] VITALS: BP 123/79
[2022-09-27 00:02] LABS: Basophils # (auto) 0.1 10 ^3/uL (0-0.2); Basophils % (auto) 1.3 % (0.0-2.0); Eosinophils # (auto) 0.3 10 ^3/uL (0-0.8); Eosinophils % (auto) 4.1 % (0.0-7.0); Hematocrit 46.5 % (41.0-53.0); Hemoglobin 15.3 g/dL (13.5-17.5); Lymphocytes % (auto) 15.2 % (10.0-50.0); Mean Corpuscular Hemoglobin 31.5 pg (28.0-32.0); Mean Corpuscular Hgb Conc. 32.9 g/dL (32.0-36.0); Mean Corpuscular Volume 95.8 fL (80.0-100.0); Monocytes # (auto) 0.7 10 ^3/uL (0-1.3); Monocytes % (auto) 10.4 % (0.0-12.0); Neutrophils # (auto) 4.8 10 ^3/uL (1.6-8.6); Red Blood Cells 4.85 10^6/uL (4.5-5.90); Red Cell Distribution Width 15.1 % (11.8-14.3); White Blood Cell 6.9 10^3/uL (4.4-10.8)
[2022-09-27 00:21] LABS: Albumin 3.1 g/dL (3.4-5.0); Calcium 9.1 mg/dL (8.5-10.1); Potassium 3.6 mmol/L (3.5-5.1)
[2022-09-27 00:28] LABS: BUN/Creatinine Ratio 17.1 (10.0-20.0); Bilirubin, Total 0.9 mg/dL (0.2-1.0); Total Protein 7.7 g/dL (6.4-8.2)
== END 2022-09-27 05:00 | disposition home or self-care (01) ==
LOC: EDBD 23:44 → ER 23:44
DX: R06.02 Shortness of breath (principal); R22.40 Localized swelling, mass and lump, unspecified lower limb; R07.89 Other chest pain; I11.0 Hypertensive heart disease with heart failure; I50.9 Heart failure, unspecified; E11.9 Type 2 diabetes mellitus without complications; E78.5 Hyperlipidemia, unspecified; F17.210 Nicotine dependence, cigarettes, uncomplicated; Z79.82 Long term (current) use of aspirin; Z79.84 Long term (current) use of oral hypoglycemic drugs; Z79.899 Other long term (current) drug therapy
CPT/HCPCS: 36415; 71045; 80053; 83880; 84484; 85025; 93005

== ENCOUNTER 2023-03-21 17:57 | Inpatient (IN) | payer OTHER ==
[~2023-03-21] VITALS: Ht 177.8 cm; Wt 80.2 kg
[~2023-03-21 17:57] MED LIST changes: +GABA-1250 PO; -GABA300C10 PO; -LISI-716 PO; +LISI10TA34 PO
[2023-03-21 19:14] LABS: Basophils # (auto) 0.1 10 ^3/uL (0-0.2); Basophils % (auto) 1.2 % (0.0-2.0); Eosinophils # (auto) 0.3 10 ^3/uL (0-0.8); Eosinophils % (auto) 3.8 % (0.0-7.0); Hematocrit 49.8 % (41.0-53.0); Hemoglobin 16.4 g/dL (13.5-17.5); Lymphocytes # (auto) 0.8 10 ^3/uL (0.4-5.4); Lymphocytes % (auto) 12.4 % (10.0-50.0); Mean Corpuscular Hemoglobin 32.5 pg (28.0-32.0); Mean Corpuscular Hgb Conc. 32.9 g/dL (32.0-36.0); Monocytes # (auto) 0.9 10 ^3/uL (0-1.3); Monocytes % (auto) 12.8 % (0.0-12.0); Neutrophils # (auto) 4.7 10 ^3/uL (1.6-8.6); Neutrophils % (auto) 69.8 % (37.0-80.0); Nucleated Red Blood Cells % 0.1 %; Red Blood Cells 5.03 10^6/uL (4.5-5.90); Red Cell Distribution Width 15.4 % (11.8-14.3); White Blood Cell 6.8 10^3/uL (4.4-10.8)
[2023-03-21 19:18] LABS: Urine Bacteria NONE SEEN /hpf (None Seen); Urine Blood Negative /uL (Negative); Urine Clarity Clear (Clear); Urine Color Yellow (Yellow); Urine Hyaline Cast MOD /lpf (0 - 2); Urine Protein, UAD TRACE (Negative); Urine Specific Gravity 1.016 (1.001-1.035); Urine WBC 1 /hpf (0 - 3); Urine pH 5.5 (5.0-8.0)
[2023-03-21 19:39] LABS: Alanine Aminotransferase 18 U/L (7-40); Albumin 4.1 g/dL (3.2-4.8); Alkaline Phosphatase 121 U/L (46-116); Anion Gap 5 (5-15); Aspartate Aminotransferase 30 U/L (13-40); BUN/Creatinine Ratio 11.6 (10.0-20.0); Bilirubin, Total 0.6 mg/dL (0.2-1.0); Blood Urea Nitrogen 20 mg/dL (9-23); Calcium 9.3 mg/dL (8.7-10.4); Carbon Dioxide 35 mmol/L (20-30); Chloride 100 mmol/L (98-107); Glucose 123 mg/dL (74-106); Potassium 3.8 mmol/L (3.5-5.1); Sodium 140 mmol/L (136-145)
[2023-03-21 19:40] LABS: Total Protein 7.2 g/dL (5.7-8.2)
[2023-03-21 20:11] LABS: COVID19 ANTIGEN SOFIA FIA NEGATIVE (NEGATIVE)
[2023-03-21 20:12] LABS: Rapid Influenza A Negative (Negative); Rapid Influenza B Negative (Negative)
[2023-03-21] MEDS ORDERED: ALBUTEROL SULF 2.5 MG/0.5ML(0.5%) NEB SOLN NEB ONE (21:45)
[2023-03-21] MEDS ORDERED: ALBUTEROL SULF 2.5 MG/0.5ML(0.5%) NEB SOLN NEB PRN (22:30)
[2023-03-21] MEDS ORDERED: FUROSEMIDE 100 MG/10ML VIAL IV ONE (22:30)
[2023-03-21] MEDS ORDERED: DEXTROSE (50%) 50ML SYRG IV PRN (22:30)
[2023-03-21] MEDS ORDERED: ONDANSETRON HCL 4 MG/2 ML VIAL IV PRN (22:30)
[2023-03-21] MEDS ORDERED: MORPHINE SULFATE INJ 2 MG/ml SYRG IV PRN (22:30)
[2023-03-21] MEDS ORDERED: TEMAZEPAM 15 MG CAP PO PRN (22:30)
[2023-03-21] MEDS ORDERED: NITROGLYCERIN 0.4 MG SL TAB SL PRN (22:30)
[2023-03-21] MEDS ORDERED: ACETAMINOPHEN 325 MG TAB PO PRN (22:30)
[2023-03-21 22:38] VITALS: BP 108/65; PULSE 99; RESP 18; TEMP 99.6; O2SAT 97
[2023-03-22] MEDS ORDERED: FUROSEMIDE 20 MG/2 ML VIAL IV SCH (06:00)
[2023-03-22] MEDS ORDERED: InsuLIN REG 1unit/0.01ml Soln (100units/ml) SC SCH (07:00)
[2023-03-22] MEDS ORDERED: ACCU-CHEK COMFORT CURVE STRIP VI SCH (07:00)
[2023-03-22] MEDS ORDERED: CARVEDILOL 3.125 MG TAB PO SCH (10:00)
[2023-03-22] MEDS ORDERED: ENOXAPARIN SOD 30 MG/0.3 ML SYRINGE SC SCH (10:00)
[2023-03-22] MEDS ORDERED: ASPirin 81 mg TAB PO SCH (10:00)
[2023-03-22 11:20] LABS: Alanine Aminotransferase 14 U/L (7-40); Albumin 3.7 g/dL (3.2-4.8); Alkaline Phosphatase 100 U/L (46-116); Anion Gap 4 (5-15); Aspartate Aminotransferase 26 U/L (13-40); BUN/Creatinine Ratio 8.7 (10.0-20.0); Bilirubin, Total 0.8 mg/dL (0.2-1.0); Blood Urea Nitrogen 13 mg/dL (9-23); Calcium 8.9 mg/dL (8.5-10.1); Carbon Dioxide 34 mmol/L (20-30); Chloride 99 mmol/L (98-107); Glucose 222 mg/dL (74-106); Potassium 3.8 mmol/L (3.5-5.1); Sodium 137 mmol/L (136-145); Total Protein 6.9 g/dL (5.7-8.2)
[2023-03-22 14:45] LABS: Basophils # (auto) 0.1 10 ^3/uL (0-0.2); Basophils % (auto) 0.9 % (0.0-2.0); Eosinophils # (auto) 0.2 10 ^3/uL (0-0.8); Eosinophils % (auto) 3.1 % (0.0-7.0); Hematocrit 48.9 % (41.0-53.0); Hemoglobin 16.1 g/dL (13.5-17.5); Lymphocytes % (auto) 17.8 % (10.0-50.0); Mean Corpuscular Hgb Conc. 32.8 g/dL (32.0-36.0); Mean Corpuscular Volume 100.5 fL (80.0-100.0); Monocytes # (auto) 0.9 10 ^3/uL (0-1.3); Monocytes % (auto) 16.6 % (0.0-12.0); Neutrophils # (auto) 3.4 10 ^3/uL (1.6-8.6); Neutrophils % (auto) 61.6 % (37.0-80.0); Nucleated Red Blood Cells % 0.7 %; Red Blood Cells 4.87 10^6/uL (4.5-5.90); Red Cell Distribution Width 15.8 % (11.8-14.3); White Blood Cell 5.5 10^3/uL (4.4-10.8)
[2023-03-22] MEDS ORDERED: ATORVASTATIN 20 MG TAB PO SCH (22:00)
== END 2023-03-22 11:32 | disposition left against medical advice (07) | DRG 194 ==
LOC: ER 17:57 → TELE 22:27
PROVIDERS: ADMIT Nurse Practitioner; ATTEND Nurse Practitioner
DX: I11.0 Hypertensive heart disease with heart failure (principal); N17.9 Acute kidney failure, unspecified; Z20.822 Contact with and (suspected) exposure to COVID-19; I50.33 Acute on chronic diastolic (congestive) heart failure; E78.00 Pure hypercholesterolemia, unspecified; E11.9 Type 2 diabetes mellitus without complications; F17.210 Nicotine dependence, cigarettes, uncomplicated; Z91.199 Patient's noncompliance with other medical treatment and regimen due to unspecified reason
CPT/HCPCS: 36415; 71045; 80053; 81001; 82962; 83880; 84484; 85025; 87426; 87804; 93005; 94640; G0378

== ENCOUNTER 2023-05-13 22:06 | Inpatient (IN) | payer OTHER ==
[~2023-05-13] VITALS: Ht 177.8 cm; Wt 79.5 kg
[2023-05-13 23:02] LABS: Basophils # (auto) 0.1 10 ^3/uL (0-0.2); Basophils % (auto) 1.5 % (0.0-2.0); Eosinophils # (auto) 0.3 10 ^3/uL (0-0.8); Eosinophils % (auto) 4.4 % (0.0-7.0); Hematocrit 48.7 % (41.0-53.0); Hemoglobin 16.1 g/dL (13.5-17.5); Lymphocytes # (auto) 1.5 10 ^3/uL (0.4-5.4); Lymphocytes % (auto) 24.9 % (10.0-50.0); Mean Corpuscular Hemoglobin 32.8 pg (28.0-32.0); Mean Corpuscular Volume 99.5 fL (80.0-100.0); Monocytes # (auto) 0.7 10 ^3/uL (0-1.3); Monocytes % (auto) 10.9 % (0.0-12.0); Neutrophils # (auto) 3.6 10 ^3/uL (1.6-8.6); Neutrophils % (auto) 58.3 % (37.0-80.0); Red Blood Cells 4.89 10^6/uL (4.5-5.90); Red Cell Distribution Width 14.4 % (11.8-14.3); White Blood Cell 6.1 10^3/uL (4.4-10.8)
[2023-05-13 23:17] LABS: INR 1.24 (0.9-1.15); Partial Thromboplastin Time 31.2 SEC (24.5-34.5); Prothrombin Time 12.8 sec (9.3-11.8)
[2023-05-13 23:20] LABS: Alanine Aminotransferase 17 U/L (7-40); Albumin 4.3 g/dL (3.2-4.8); Alkaline Phosphatase 114 U/L (46-116); Anion Gap 4 (5-15); Aspartate Aminotransferase 30 U/L (13-40); BUN/Creatinine Ratio 15.9 (10.0-20.0); Bilirubin, Total 1.3 mg/dL (0.2-1.0); Blood Urea Nitrogen 21 mg/dL (9-23); Calcium 9.3 mg/dL (8.7-10.4); Carbon Dioxide 31 mmol/L (20-30); Chloride 105 mmol/L (98-107); Glucose 136 mg/dL (74-106); Potassium 4.1 mmol/L (3.5-5.1); Sodium 140 mmol/L (136-145); Total Protein 7.5 g/dL (5.7-8.2)
[2023-05-14] MEDS ORDERED: FUROSEMIDE 20 MG/2 ML VIAL IV ONE (04:45)
[2023-05-14] MEDS ORDERED: NITROGLYCERIN 0.2MG/HR TOPICAL PATCH TD ONE (04:45)
[2023-05-14] MEDS ORDERED: ONDANSETRON HCL 4 MG/2 ML VIAL IV ONE (04:45)
[2023-05-14] MEDS ORDERED: ACETAMINOPHEN 325 MG TAB PO ONE (04:45)
[2023-05-14] MEDS ORDERED: ASPirin 81 mg TAB PO ONE (04:45)
[2023-05-14] MEDS ORDERED: PANTOPRAZOLE 40 MG/10 ML VIAL INJ IV ONE (04:45)
[2023-05-14] MEDS ORDERED: HYDROmorphone HCL 2 MG/ML VL/or syr IV ONE (04:45)
[2023-05-14 04:55] LABS: Blood Alcohol < 3.0 mg/dL (<10)
[2023-05-14 04:56] LABS: Magnesium 1.7 mg/dL (1.6-2.6)
[2023-05-14 05:34] LABS: COVID19 ANTIGEN SOFIA FIA NEGATIVE (NEGATIVE)
[2023-05-14 05:41] LABS: Partial Thromboplastin Time 31.7 SEC (24.5-34.5)
[2023-05-14 05:51] LABS: INR 1.19 (0.9-1.15); Prothrombin Time 12.4 sec (9.3-11.8)
[2023-05-14] MEDS ORDERED: HYDROmorphone HCL 2 MG/ML VL/or syr IM ONE (06:30)
[2023-05-14] MEDS ORDERED: ACCU-CHEK COMFORT CURVE STRIP VI SCH (07:00)
[2023-05-14] MEDS ORDERED: NITROGLYCERIN 0.4 MG SL TAB SL PRN (07:00)
[2023-05-14] MEDS ORDERED: MORPHINE SULFATE INJ 2 MG/ml SYRG IV PRN (07:00)
[2023-05-14] MEDS ORDERED: InsuLIN REG 1unit/0.01ml Soln (100units/ml) SC SCH (07:00)
[2023-05-14] MEDS ORDERED: ONDANSETRON HCL 4 MG/2 ML VIAL IV PRN (07:00)
[2023-05-14] MEDS ORDERED: DEXTROSE (50%) 50ML SYRG IV PRN (07:00)
[2023-05-14] MEDS ORDERED: ACETAMINOPHEN 325 MG TAB PO PRN (07:00)
[2023-05-14 07:26] VITALS: BP 137/99; PULSE 85; RESP 16; TEMP 99.6; O2SAT 96
[2023-05-14] MEDS ORDERED: ASPirin 81 mg TAB PO SCH (10:00)
[2023-05-14] MEDS ORDERED: LISINOPRIL 10 MG TAB PO SCH (10:00)
[2023-05-14] MEDS ORDERED: CARVEDILOL 3.125 MG TAB PO SCH (10:00)
[2023-05-14] MEDS ORDERED: FUROSEMIDE 20 MG/2 ML VIAL IV SCH (18:00)
== END 2023-05-14 09:39 | disposition left against medical advice (07) | DRG 194 ==
LOC: ER 22:06 → TELE 05-14 06:51
PROVIDERS: ADMIT Internal Medicine Geriatric Medicine; ATTEND Internal Medicine
DX: I13.0 Hypertensive heart and chronic kidney disease with heart failure and stage 1 through stage 4 chronic kidney disease, or unspecified chronic kidney disease (principal); N17.9 Acute kidney failure, unspecified; Z20.822 Contact with and (suspected) exposure to COVID-19; E11.22 Type 2 diabetes mellitus with diabetic chronic kidney disease; I50.9 Heart failure, unspecified; E78.5 Hyperlipidemia, unspecified; F15.10 Other stimulant abuse, uncomplicated; N18.9 Chronic kidney disease, unspecified
CPT/HCPCS: 36415; 80053; 80320; 83735; 83880; 84443; 84484; 85025; 85610; 85730; 87426; 93005; G0378

== ENCOUNTER 2023-06-10 20:46 | Inpatient (IN) | payer OTHER ==
[~2023-06-10] VITALS: Ht 182.9 cm; Wt 86.4 kg
[2023-06-10 21:18] LABS: Basophils # (auto) 0.1 10 ^3/uL (0-0.2); Basophils % (auto) 1.2 % (0.0-2.0); Eosinophils # (auto) 0.2 10 ^3/uL (0-0.8); Eosinophils % (auto) 2.8 % (0.0-7.0); Hematocrit 50.5 % (41.0-53.0); Hemoglobin 16.5 g/dL (13.5-17.5); Lymphocytes # (auto) 1.7 10 ^3/uL (0.4-5.4); Lymphocytes % (auto) 25.1 % (10.0-50.0); Mean Corpuscular Hemoglobin 32.2 pg (28.0-32.0); Mean Corpuscular Hgb Conc. 32.6 g/dL (32.0-36.0); Mean Corpuscular Volume 98.8 fL (80.0-100.0); Monocytes # (auto) 0.7 10 ^3/uL (0-1.3); Neutrophils % (auto) 59.9 % (37.0-80.0); Nucleated Red Blood Cells % 0.2 %; Red Blood Cells 5.11 10^6/uL (4.5-5.90); Red Cell Distribution Width 14.7 % (11.8-14.3); White Blood Cell 6.7 10^3/uL (4.4-10.8)
[2023-06-10 21:35] LABS: INR 1.26 (0.9-1.15); Partial Thromboplastin Time 31.5 SEC (24.5-34.5)
[2023-06-10 21:41] LABS: Alanine Aminotransferase 21 U/L (7-40); Albumin 4.4 g/dL (3.2-4.8); Alkaline Phosphatase 109 U/L (46-116); Anion Gap 6 (5-15); Aspartate Aminotransferase 34 U/L (13-40); BUN/Creatinine Ratio 17.2 (10.0-20.0); Bilirubin, Total 1.3 mg/dL (0.2-1.0); Blood Urea Nitrogen 23 mg/dL (9-23); Calcium 9.3 mg/dL (8.7-10.4); Carbon Dioxide 28 mmol/L (20-30); Chloride 103 mmol/L (98-107); Glucose 117 mg/dL (74-106); Magnesium 1.9 mg/dL (1.6-2.6); Potassium 3.8 mmol/L (3.5-5.1); Sodium 137 mmol/L (136-145); Total Protein 7.7 g/dL (5.7-8.2)
[2023-06-10 23:31] LABS: Urine Bacteria NONE SEEN /hpf (None Seen); Urine Blood TRACE /uL (Negative); Urine Clarity Clear (Clear); Urine Color Yellow (Yellow); Urine Hyaline Cast FEW /lpf (0 - 2); Urine Protein, UAD 2+ (Negative); Urine Specific Gravity 1.029 (1.001-1.035); Urine WBC 5 /hpf (0 - 3); Urine pH 5.5 (5.0-8.0)
[2023-06-11] MEDS ORDERED: NITROGLYCERIN 0.4 MG SL TAB SL ONE (05:45)
[2023-06-11] MEDS ORDERED: HYDROmorphone HCL 2 MG/ML VL/or syr IV ONE (05:45)
[2023-06-11] MEDS ORDERED: FUROSEMIDE 40 MG/4 ML VIAL IV ONE (05:45)
[2023-06-11] MEDS ORDERED: ONDANSETRON HCL 4 MG/2 ML VIAL IV ONE (05:45)
[2023-06-11] MEDS ORDERED: ASPirin 81 mg TAB PO ONE (05:45)
[2023-06-11 06:44] LABS: Blood Alcohol < 3.0 mg/dL (<10)
[2023-06-11 06:58] LABS: INR 1.17 (0.9-1.15); Partial Thromboplastin Time 30.2 SEC (24.5-34.5); Prothrombin Time 12.4 sec (9.3-11.8)
[2023-06-11 07:02] LABS: Magnesium 1.8 mg/dL (1.6-2.6)
[2023-06-11] MEDS ORDERED: ACETAMINOPHEN 325 MG TAB PO PRN (07:15)
[2023-06-11] MEDS ORDERED: TEMAZEPAM 15 MG CAP PO PRN (07:15)
[2023-06-11] MEDS ORDERED: HYDROcodone-ACET 5/325MG TAB PO PRN (07:15)
[2023-06-11] MEDS ORDERED: MORPHINE SULFATE INJ 2 MG/ml SYRG IV PRN (07:15)
[2023-06-11] MEDS ORDERED: NITROGLYCERIN 0.4 MG SL TAB SL PRN (07:15)
[2023-06-11] MEDS ORDERED: ONDANSETRON HCL 4 MG/2 ML VIAL IV PRN (07:15)
[2023-06-11] MEDS ORDERED: DEXTROSE (50%) 50ML SYRG IV PRN (07:15)
[2023-06-11] MEDS: ENOXAPARIN SOD 40 MG/0.4 ML SYRINGE SC SCH ×2 (10:00→10:07)
[2023-06-11] MEDS: LISINOPRIL 10 MG TAB PO SCH ×2 (10:00→10:07)
[2023-06-11] MEDS: ASPirin 81 mg TAB PO SCH (10:02)
[2023-06-11] MEDS: CARVEDILOL 3.125 MG TAB PO SCH ×2 (10:05→22:07)
[2023-06-11] MEDS: GABAPENTIN 400 MG CAP PO SCH ×2 (10:06→10:12)
[2023-06-11 10:43] LABS: Amphetamine Screen, Urine Pos (NEGATIVE); Barbiturate Scree,Urine Neg (NEGATIVE); Benzodiazephine Screen, Urine Neg (NEGATIVE); Cocaine Screen, Urine Neg (NEGATIVE); Opiate Scree,Urine Neg (NEGATIVE)
[2023-06-11 10:44] LABS: Cannabinoid Screen, Urine Neg (NEGATIVE); Phencyclidine Screen, Urine Neg (NEGATIVE)
[2023-06-11 10:58] LABS: Urine Bacteria NONE SEEN /hpf (None Seen); Urine Blood Negative /uL (Negative); Urine Clarity Clear (Clear); Urine Color Yellow (Yellow); Urine Hyaline Cast FEW /lpf (0 - 2); Urine Protein, UAD Negative (Negative); Urine Specific Gravity 1.004 (1.001-1.035); Urine Urobilinogen Normal (Negative); Urine WBC 1 /hpf (0 - 3); Urine pH 5.5 (5.0-8.0)
[2023-06-11 11:27] VITALS: PULSE 95; RESP 16; O2SAT 95
[2023-06-11] MEDS: InsuLIN REG 1unit/0.01ml Soln (100units/ml) SC SCH ×4 (11:30→22:00)
[2023-06-11] MEDS: ACCU-CHEK COMFORT CURVE STRIP VI SCH ×3 (11:50→22:07)
[2023-06-11 13:57] VITALS: BP 131/93; PULSE 98; RESP 18; TEMP 97.8; O2SAT 94
[2023-06-11] MEDS ORDERED: MAGNESIUM SULFATE 1GM/100ML 100 ML IV ONE (15:15)
[2023-06-11 16:00] VITALS: BP 119/85; PULSE 86; RESP 20; O2SAT 96
[2023-06-11] MEDS: FUROSEMIDE 20 MG/2 ML VIAL IV SCH (18:20)
[2023-06-11 20:00] VITALS: BP 126/93; PULSE 86; PULSE 92; RESP 17; TEMP 97.4
[2023-06-11 22:00] VITALS: BP 126/93; PULSE 92; RESP 16; TEMP 96.4; O2SAT 99
[2023-06-11] MEDS: ATORVASTATIN 20 MG TAB PO SCH (22:06)
[2023-06-12] VITALS (7 sets, daily range): BP systolic 116–129; BP diastolic 74–89; PULSE 68–97; RESP 16–20; TEMP 97.1–98.1; O2SAT 91–100
[2023-06-12] MEDS: FUROSEMIDE 20 MG/2 ML VIAL IV SCH ×2 (05:48→17:43)
[2023-06-12] MEDS: ACCU-CHEK COMFORT CURVE STRIP VI SCH ×4 (06:23→21:41)
[2023-06-12] MEDS: InsuLIN REG 1unit/0.01ml Soln (100units/ml) SC SCH ×4 (06:26→21:41)
[2023-06-12 07:38] LABS: Basophils # (auto) 0.1 10 ^3/uL (0-0.2); Basophils % (auto) 1.3 % (0.0-2.0); Eosinophils # (auto) 0.2 10 ^3/uL (0-0.8); Eosinophils % (auto) 4.3 % (0.0-7.0); Hematocrit 46.4 % (41.0-53.0); Hemoglobin 15.5 g/dL (13.5-17.5); Lymphocytes # (auto) 1.1 10 ^3/uL (0.4-5.4); Lymphocytes % (auto) 21.8 % (10.0-50.0); Mean Corpuscular Hgb Conc. 33.5 g/dL (32.0-36.0); Mean Corpuscular Volume 98.7 fL (80.0-100.0); Monocytes # (auto) 0.5 10 ^3/uL (0-1.3); Monocytes % (auto) 9.5 % (0.0-12.0); Neutrophils # (auto) 3.1 10 ^3/uL (1.6-8.6); Neutrophils % (auto) 63.1 % (37.0-80.0); Nucleated Red Blood Cells % 0.2 %; Red Blood Cells 4.71 10^6/uL (4.5-5.90); Red Cell Distribution Width 14.6 % (11.8-14.3)
[2023-06-12 07:46] LABS: Alanine Aminotransferase 19 U/L (7-40); Alkaline Phosphatase 95 U/L (46-116); Anion Gap 9 (5-15); Blood Urea Nitrogen 23 mg/dL (9-23); Calcium 9.1 mg/dL (8.5-10.1); Carbon Dioxide 26 mmol/L (20-30); Chloride 102 mmol/L (98-107); Glucose 191 mg/dL (74-106); Potassium 3.5 mmol/L (3.5-5.1); Sodium 137 mmol/L (136-145)
[2023-06-12 07:47] LABS: Albumin 3.7 g/dL (3.2-4.8); Aspartate Aminotransferase 28 U/L (13-40)
[2023-06-12 07:48] LABS: Bilirubin, Total 0.8 mg/dL (0.2-1.0); Total Protein 6.5 g/dL (5.7-8.2)
[2023-06-12] MEDS: GABAPENTIN 400 MG CAP PO SCH ×2 (09:32→21:44)
[2023-06-12] MEDS: ASPirin 81 mg TAB PO SCH (09:32)
[2023-06-12] MEDS: ENOXAPARIN SOD 40 MG/0.4 ML SYRINGE SC SCH (09:32)
[2023-06-12] MEDS: LISINOPRIL 10 MG TAB PO SCH (09:32)
[2023-06-12] MEDS: CARVEDILOL 3.125 MG TAB PO SCH ×2 (09:32→21:44)
[2023-06-12] MEDS: ATORVASTATIN 20 MG TAB PO SCH (21:43)
[2023-06-13 05:00] VITALS: BP 117/76; PULSE 72; RESP 20; TEMP 97.6; O2SAT 95
[2023-06-13] MEDS: FUROSEMIDE 20 MG/2 ML VIAL IV SCH (06:20)
[2023-06-13] MEDS: ACCU-CHEK COMFORT CURVE STRIP VI SCH ×2 (06:32→11:29)
[2023-06-13] MEDS: InsuLIN REG 1unit/0.01ml Soln (100units/ml) SC SCH ×2 (06:33→11:30)
[2023-06-13 08:00] VITALS: PULSE 74
[2023-06-13 09:00] VITALS: BP 115/78; PULSE 77; RESP 20; TEMP 98; O2SAT 96
[2023-06-13] MEDS: ASPirin 81 mg TAB PO SCH (09:20)
[2023-06-13] MEDS: LISINOPRIL 10 MG TAB PO SCH (09:22)
[2023-06-13] MEDS: CARVEDILOL 3.125 MG TAB PO SCH (09:23)
[2023-06-13] MEDS: GABAPENTIN 400 MG CAP PO SCH (09:23)
[2023-06-13] MEDS: ENOXAPARIN SOD 40 MG/0.4 ML SYRINGE SC SCH (09:23)
[2023-06-13 13:00] VITALS: BP 119/82; PULSE 77; RESP 20; TEMP 98.6; O2SAT 97
== END 2023-06-13 13:23 | disposition home or self-care (01) | DRG 194 ==
LOC: ER 20:46 → TELE 06-11 07:16 → TELE-WESTW 06-11 12:43
PROVIDERS: ADMIT Family Medicine; ATTEND Family Medicine
DX: I13.0 Hypertensive heart and chronic kidney disease with heart failure and stage 1 through stage 4 chronic kidney disease, or unspecified chronic kidney disease (principal); I21.A1 Myocardial infarction type 2; N17.9 Acute kidney failure, unspecified; E44.0 Moderate protein-calorie malnutrition; I50.23 Acute on chronic systolic (congestive) heart failure; E11.22 Type 2 diabetes mellitus with diabetic chronic kidney disease; E11.42 Type 2 diabetes mellitus with diabetic polyneuropathy; E11.51 Type 2 diabetes mellitus with diabetic peripheral angiopathy without gangrene; N18.9 Chronic kidney disease, unspecified; F17.200 Nicotine dependence, unspecified, uncomplicated; F15.10 Other stimulant abuse, uncomplicated; I08.1 Rheumatic disorders of both mitral and tricuspid valves; I25.10 Atherosclerotic heart disease of native coronary artery without angina pectoris; F41.9 Anxiety disorder, unspecified; Z80.42 Family history of malignant neoplasm of prostate; Z82.49 Family history of ischemic heart disease and other diseases of the circulatory system; Z91.199 Patient's noncompliance with other medical treatment and regimen due to unspecified reason; Z68.25 Body mass index [BMI] 25.0-25.9, adult
CPT/HCPCS: 36415; 80053; 80307; 80320; 81001; 82962; 83735; 83880; 84484; 85025; 85610; 85730; 93005; 93306; G0378; J1815

== ENCOUNTER 2023-07-01 18:58 | Inpatient (IN) | payer OTHER ==
[~2023-07-01] VITALS: Ht 177.8 cm; Wt 85.5 kg
[2023-07-01 19:32] LABS: Basophils # (auto) 0 10 ^3/uL (0-0.2); Basophils % (auto) 0.8 % (0.0-2.0); Eosinophils # (auto) 0.1 10 ^3/uL (0-0.8); Eosinophils % (auto) 1.9 % (0.0-7.0); Hematocrit 50.8 % (41.0-53.0); Hemoglobin 16.7 g/dL (13.5-17.5); Lymphocytes # (auto) 0.9 10 ^3/uL (0.4-5.4); Mean Corpuscular Hemoglobin 32.2 pg (28.0-32.0); Mean Corpuscular Hgb Conc. 32.8 g/dL (32.0-36.0); Mean Corpuscular Volume 98.1 fL (80.0-100.0); Monocytes # (auto) 0.5 10 ^3/uL (0-1.3); Monocytes % (auto) 7.6 % (0.0-12.0); Neutrophils # (auto) 4.9 10 ^3/uL (1.6-8.6); Neutrophils % (auto) 75.7 % (37.0-80.0); Nucleated Red Blood Cells % 0.1 %; Red Blood Cells 5.17 10^6/uL (4.5-5.90); Red Cell Distribution Width 14.6 % (11.8-14.3); White Blood Cell 6.5 10^3/uL (4.4-10.8)
[2023-07-01 19:48] LABS: Alanine Aminotransferase 18 U/L (7-40); Albumin 4.4 g/dL (3.2-4.8); Alkaline Phosphatase 120 U/L (46-116); Anion Gap 6 (5-15); Calcium 9.4 mg/dL (8.7-10.4); Carbon Dioxide 31 mmol/L (20-30); Chloride 102 mmol/L (98-107); Glucose 154 mg/dL (74-106); Potassium 3.8 mmol/L (3.5-5.1); Sodium 139 mmol/L (136-145)
[2023-07-01 19:49] LABS: Aspartate Aminotransferase 32 U/L (13-40); BUN/Creatinine Ratio 15.7 (10.0-20.0); Bilirubin, Total 1.2 mg/dL (0.2-1.0); Blood Urea Nitrogen 21 mg/dL (9-23)
[2023-07-01] MEDS ORDERED: FUROSEMIDE 40 MG/4 ML VIAL IV ONE (20:30)
[2023-07-01] MEDS ORDERED: ENOXAPARIN SOD 80 MG/0.8ML SYRINGE SC ONE (21:30)
[2023-07-01] MEDS ORDERED: TEMAZEPAM 15 MG CAP PO PRN (22:45)
[2023-07-01] MEDS ORDERED: ONDANSETRON HCL 4 MG/2 ML VIAL IV PRN (22:45)
[2023-07-01] MEDS ORDERED: MORPHINE SULFATE INJ 2 MG/ml SYRG IV PRN (22:45)
[2023-07-01] MEDS ORDERED: NITROGLYCERIN 0.4 MG SL TAB SL PRN (22:45)
[2023-07-01] MEDS ORDERED: ACETAMINOPHEN 325 MG TAB PO PRN (22:45)
[2023-07-01] MEDS ORDERED: DEXTROSE (50%) 50ML SYRG IV PRN (22:45)
[2023-07-02] MEDS ORDERED: FUROSEMIDE 20 MG/2 ML VIAL IV SCH ×2 (06:00→18:00)
[2023-07-02] MEDS: ACCU-CHEK COMFORT CURVE STRIP VI SCH ×4 (06:48→22:55)
[2023-07-02] MEDS: InsuLIN REG 1unit/0.01ml Soln (100units/ml) SC SCH ×4 (06:48→23:18)
[2023-07-02] MEDS ORDERED: ASPirin 81 mg TAB PO SCH (10:00)
[2023-07-02] MEDS ORDERED: ENOXAPARIN SOD 30 MG/0.3 ML SYRINGE SC SCH (10:00)
[2023-07-02] MEDS ORDERED: LISINOPRIL 10 MG TAB PO SCH (10:00)
[2023-07-02] MEDS: GABAPENTIN 300 MG CAP PO SCH ×2 (10:53→23:17)
[2023-07-02] MEDS: CARVEDILOL 3.125 MG TAB PO SCH ×2 (10:54→23:17)
[2023-07-02] MEDS ORDERED: HYDROcodone-ACET 5/325MG TAB PO PRN (11:00)
[2023-07-02] MEDS ORDERED: FUROSEMIDE 20 MG/2 ML VIAL IV ONE (11:00)
[2023-07-02 11:22] LABS: Basophils # (auto) 0.1 10 ^3/uL (0-0.2); Eosinophils # (auto) 0.2 10 ^3/uL (0-0.8); Eosinophils % (auto) 3.1 % (0.0-7.0); Hematocrit 49.2 % (41.0-53.0); Lymphocytes % (auto) 17.7 % (10.0-50.0); Mean Corpuscular Hemoglobin 31.8 pg (28.0-32.0); Mean Corpuscular Hgb Conc. 32.5 g/dL (32.0-36.0); Mean Corpuscular Volume 97.7 fL (80.0-100.0); Monocytes # (auto) 0.5 10 ^3/uL (0-1.3); Monocytes % (auto) 9.5 % (0.0-12.0); Neutrophils # (auto) 3.9 10 ^3/uL (1.6-8.6); Neutrophils % (auto) 68.7 % (37.0-80.0); Nucleated Red Blood Cells % 0.1 %; Red Blood Cells 5.04 10^6/uL (4.5-5.90); Red Cell Distribution Width 14.5 % (11.8-14.3); White Blood Cell 5.7 10^3/uL (4.4-10.8)
[2023-07-02 11:37] LABS: INR 1.22 (0.9-1.15); Prothrombin Time 12.6 sec (9.3-11.8)
[2023-07-02 11:48] LABS: Alanine Aminotransferase 15 U/L (7-40); Alkaline Phosphatase 112 U/L (46-116); Anion Gap 4 (5-15); BUN/Creatinine Ratio 12.1 (10.0-20.0); Blood Urea Nitrogen 18 mg/dL (9-23); Calcium 9.7 mg/dL (8.5-10.1); Carbon Dioxide 33 mmol/L (20-30); Chloride 100 mmol/L (98-107); Glucose 187 mg/dL (74-106); LDL Cholesterol 70 mg/dL (< 100); Potassium 3.7 mmol/L (3.5-5.1); Sodium 137 mmol/L (136-145); Triglycerides 58 mg/dL (< 150)
[2023-07-02 11:49] LABS: Albumin 4.3 g/dL (3.2-4.8); Aspartate Aminotransferase 34 U/L (13-40); Cholesterol 129 mg/dL (< 200); HDL Cholesterol 48 mg/dL (40-59)
[2023-07-02 11:50] LABS: Bilirubin, Total 1.1 mg/dL (0.2-1.0); Total Protein 7.8 g/dL (5.7-8.2)
[2023-07-02 11:59] LABS: Magnesium 1.6 mg/dL (1.6-2.6)
[2023-07-02] MEDS: FUROSEMIDE 40 MG/4 ML VIAL IV SCH (23:18)
[2023-07-02] MEDS ORDERED: SPIR50TA2 PO (23:45)
[2023-07-02 23:56] VITALS: BP 124/82; PULSE 79; RESP 18; TEMP 97.7; O2SAT 98
[2023-07-03 05:10] VITALS: BP 94/64; PULSE 73; RESP 18; TEMP 97.6; O2SAT 95
[2023-07-03] MEDS: FUROSEMIDE 40 MG/4 ML VIAL IV SCH (06:04)
[2023-07-03] MEDS: ACCU-CHEK COMFORT CURVE STRIP VI SCH (06:05)
[2023-07-03] MEDS: InsuLIN REG 1unit/0.01ml Soln (100units/ml) SC SCH (06:16)
[2023-07-03] MEDS ORDERED: INSULIN LANTUS (GLARGINE) 1 /0.01ml (100units/ml) SC SCH (07:00)
[2023-07-03 08:30] VITALS: BP 106/60; PULSE 87; RESP 19; TEMP 98.9; O2SAT 94
[2023-07-03] MEDS ORDERED: ASPirin 81 mg TAB PO SCH (10:00)
== END 2023-07-03 08:35 | disposition left against medical advice (07) | DRG 194 ==
LOC: ER 18:58 → TELE 22:44 → TELE-CENTR 07-02 23:33
PROVIDERS: ADMIT Internal Medicine Geriatric Medicine; ATTEND Internal Medicine Geriatric Medicine
DX: I13.0 Hypertensive heart and chronic kidney disease with heart failure and stage 1 through stage 4 chronic kidney disease, or unspecified chronic kidney disease (principal); J90 Pleural effusion, not elsewhere classified; N17.9 Acute kidney failure, unspecified; E11.22 Type 2 diabetes mellitus with diabetic chronic kidney disease; E11.51 Type 2 diabetes mellitus with diabetic peripheral angiopathy without gangrene; F15.10 Other stimulant abuse, uncomplicated; N18.31 Chronic kidney disease, stage 3a; E78.5 Hyperlipidemia, unspecified; Z53.29 Procedure and treatment not carried out because of patient's decision for other reasons; Z87.891 Personal history of nicotine dependence; Z82.49 Family history of ischemic heart disease and other diseases of the circulatory system; I50.23 Acute on chronic systolic (congestive) heart failure
CPT/HCPCS: 36415; 71045; 71275; 80053; 80061; 82962; 83036; 83735; 83880; 84443; 84484; 85025; 85379; 85610; 87081; 93005; 96374; G0378; J1815; J2405

== ENCOUNTER 2024-04-29 20:25 | Inpatient (IN) | payer OTHER ==
[~2024-04-29] VITALS: Ht 177.8 cm; Wt 85.9 kg
[~2024-04-29 20:25] MED LIST changes: -METF-929 PO; -METO25TA36 PO; +SPIR50TA2 PO
--- NOTE | 2024-04-29 20:58 | ECG ---
[facility] Test Date: 2024-04-29 Test Time: 20:57:47 Pat Name: TANVI HU Department: ED Room: [address] [place] [address] Gender: M Donor Technician: STEVE : 1965 Requested By: ABDOULAYE SCHILLING Order Number: [id number] Reading MD: Bayron Paul Measurements Intervals [place] Rate: 94 P: 75 RI: 171 QRS: -4 QRSD: 104 T: 65 QT: 392 QTc: 491 Interpretive Statements Sinus rhythm Probable left atrial enlargement Borderline prolonged QT interval Electronically Signed On 05-02-2024 17:30:10 PST by Bayron Paul Please click the below link to view image of tracing.
[2024-04-29] MEDS: FUROSEMIDE 40 MG/4 ML VIAL IV ONE (21:00)
--- NOTE | 2024-04-29 21:03 | ED.PDOC ---
History of Present Illness HPI Comments 58 y/o M, with a Hx of CHF, DM w/neuropathy, HLD, HTN, and polysubstance abuse, presents with c/o shortness of breath, abdominal distension, and bilateral leg and feet swelling and pain for 1 week. Patient comments on pain being an 8/10 and also having diarrhea 4x days ago that has since subsided. Patient comments on Hx of Lasix use w/medication compliancy and having similar onset of symptoms in the past during the "cold season." Patient endorses on no recent stress, injuries, sick contact, travel, spoiled food, or substance use or exposure aside from methamphetamine use 3x days ago. Patient denies having any abdominal or chest pain, numbness, tingling, fever, chills, or other associated symptoms or modifiers at this time. Time Seen by MD: 20:50 Primary Care Provider: Sid Reviewed Notes: Nurses Notes, Medications, Allergies Allergies: Coded Allergies: NO KNOWN ALLERGIES (Unverified , 09/24/22) Home Meds Reported Medications Spironolactone (Aldactone) 50 Mg Tab, 1 TAB PO DAILY, #30 TAB 3 Refills 07/02/23 Carvedilol (Coreg) 3.125 Mg Tab, PO, TAB 06/28/22 Atorvastatin Calcium (Lipitor) 10 Mg Tab, PO, TAB 06/28/22 Gabapentin (Gabapentin) 300 Mg Cap, 300 MG PO DAILY for 30 Days, MG 09/02/21 Furosemide (Furosemide) 80 Mg Tab, 1 TAB PO BID, #180 TAB 3 Refills 09/02/21 Aspirin (Aspirin Low Dose) 81 Mg Tab, 1 TAB PO DAILY 04/30/21 Lisinopril (Lisinopril) 10 Mg Tab, 1 TAB PO DAILY 04/30/21 Information Source: Patient Mode of Arrival: Ambulatory Severity: Moderate Timing: Weeks Duration: Since onset Prehospital treatment: None Past Medical History PAST MEDICAL HISTORY: CHF, DM (w/neuropathy), High Lipids, HTN Surgical History: Denies all surgeries Family History Family History: No family hx of Cancer, No family hx of DM, No family hx of HTN, No family hx ofKidney tha, No family hx of Liver tha, No family hx of Lung tha, No family hx of Stroke, Family hx of heart tha Social History Smoker: Quit Greater Than 1 Year, Cigarettes Alcohol: Occasionally Drugs: Methamphetamine Lives In: Home Constitutional: denies: chills, diaphoresis, fatigue, fever, malaise, sweats, weakness, others EENTM: denies: blurred vision, double vision, ear bleeding, ear discharge, ear drainage, ear pain, ear ringing, eye pain, eye redness, hearing loss, mouth pain, mouth swelling, nasal discharge, nose bleeding, nose congestion, nose pain, photophobia, tearing, throat pain, throat swelling, voice changes, others Respiratory: reports: shortness of breath; denies: cough, hemoptysis, orthopnea, SOB at rest, SOB with excertion, stridor, wheezing, others Cardiovascular: denies: chest pain, dizzy spells, diaphoresis, Dyspnea on exertion, edema, irregular heart beat, left arm pain, lightheadedness, pal pitations, PND, syncope, others Gastrointestinal: reports: abdomen distended; denies: abdominal pain, blood streaked bowels, constipated, diarrhea, dysphagia, difficulty swallowing, hematemesis, melena, nausea, poor appetite, poor fluid intake, rectal bleeding, rectal pain, vomiting, others Genitourinary: denies: burning, dysuria, flank pain, frequency, hematuria, incontinence, penile discharge, penile sore, pain, testicle pain, testicle swell ing, urgency, others Neurological: denies: dizziness, fainting, headache, left sided numbness, left sided weakness, numbness, paresthesia, pre-existing deficit, right sided numbness, right sided weakness, seizure, speech problems, tingling, tremors, weakness, others Musculoskeletal: reports: others (bilateral leg and feet swelling and pain ); denies: back pain, gout, joint pain, joint swelling, muscle pain, muscle stiffness, neck pain Integumetry: denies: bruises, change in color, change in hair/nails, dryness, laceration, lesions, lumps, rash, wounds, others Allergic/Immunocompromised: denies: Difficulty Healing, Frequent Infections, Hives, Itching, others Hematologic/Lymphatic: denies: anemia, blood clots, easy bleeding, easy bruising, swollen glands, others Endocrine: denies: excessive hunger, excessive sweating, excessive thirst, excessive urination, flushing, intolerance to cold, intolerance to heat, unexplained weight gain, unexplained weight loss, others Psychiatric: denies: anxiety, bipolar disorder, depression, hopeless, panic disorder, schizophrenia, sleepless, suicidal, others All Other Systems: Reviewed and Negative Physical Exam General Appearance: Moderate Distress HEENT: Normal ENT Inspection, Pharynx Normal, TMs Normal Neck: Full Range of Motion, Non-Tender, Normal, Normal Inspection Respiratory: Chest Non-Tender, No Accessory Muscle Use, Rales, Respiratory Distress Cardiovascular: No Edema, No JVD, No Murmur, No Gallop, Normal Peripheral Pulses, Regular Rate/Rhythm Breast Exam: Deferred Gastrointestinal: No Organomegaly, Non Tender, No Pulsatile Mass, Normal Bowel Sounds, Soft Genitalia: Deferred Pelvic: Deferred Rectal: Deferred Extremities: No calf tenderness, Normal capillary refill, Pedal edema Musculoskeletal : Apperance: Normal Neurologic: Alert, general production manager II-XII nml as 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 Was a procedure done?: No EKG EKG : Pulse Rate (adult): 94 [place]: Normal Cardiac Rhythm: NSR Block: None Hypertrophy: LAE ST: Normal Differential Dx Considerations may include: CHF exacerbation, fluid overload, PNA, bronchitis, Covid19, URI, KS, PE, ascites X-Ray, Labs, Meds, VS Vital Signs Date Time Temp Pulse Resp B/P (MAP) Pulse Ox O2 Delivery O2 Flow Rate FiO2 04/29/24 21:03 94 04/29/24 20:57 94 04/29/24 20:45 97.6 100 20 159/102 (121) 98 Lab Test 04/29/24 21:00 Range/Units White Blood Count 7.0 4.4-10.8 10^3/uL Red Blood Count 4.74 4.5-5.90 10^6/uL Hemoglobin 15.8 13.5-17.5 g/dL Hematocrit 47.7 41.0-53.0 % Mean Corpuscular Volume 100.6 H 80.0-100.0 fL Mean Corpuscular Hemoglobin 33.4 H 28.0-32.0 pg Mean Corpuscular Hemoglobin Concent 33.2 32.0-36.0 g/dL Red Cell Distribution Width 13.8 11.8-14.3 % Platelet Count 187 140-450 10^3/uL Mean Platelet Volume 8.5 6.9-10.8 fL Neutrophils (%) (Auto) 68.9 37.0-80.0 % Lymphocytes (%) (Auto) 15.9 10.0-50.0 % Monocytes (%) (Auto) 9.7 0.0-12.0 % Eosinophils (%) (Auto) 4.7 0.0-7.0 % Basophils (%) (Auto) 0.8 0.0-2.0 % Neutrophils # (Auto) 4.8 1.6-8.6 10 ^3/uL Lymphocytes # (Auto) 1.1 0.4-5.4 10 ^3/uL Monocytes # (Auto) 0.7 0-1.3 10 ^3/uL Eosinophils # (Auto) 0.3 0-0.8 10 ^3/uL Basophils # (Auto) 0.1 0-0.2 10 ^3/uL Nucleated Red Blood Cells 0.0 % Sodium Level 142 136-145 mmol/L Potassium Level 4.0 3.5-5.1 mmol/L Chloride Level 107 98-107 mmol/L Carbon Dioxide Level 28 20-31 mmol/L Anion Gap 7 5-15 Blood Urea Nitrogen 14 9-23 mg/dL Creatinine 1.36 H 0.700-1.30 mg/dL Glomerular Filtration Rate Calc 60 >90 mL/min BUN/Creatinine Ratio 10.3 10.0-20.0 Serum Glucose 125 H 74-106 mg/dL Calcium Level 9.7 8.7-10.4 mg/dL Troponin I High Sensitivity Pending B-Type Natriuretic Peptide 1009.83 0-100 pg/mL Chest x-ray shows: IMPRESSION: 1. Probable trace bilateral effusions The BNP is elevated at 1009.83 The CBC and chemistry panel are within normal limits At this time, an IV Hep-Lock was established The patient was given Lasix 40 mg IV push The patient was being admitted to the hospitalist The diagnosis is acute on chronic diastolic heart failure A cardiology consult will be obtained. Images Reviewed?: Images reviewed and evaluated by me Time of 1ST Reevaluation: 21:20 Reevaluation 1ST: Unchanged Patient Education/Counseling: Diagnosis, Treatment, Prognosis Family Education/Counseling: No Family Present Departure 1 Departure Time of Disposition: 21:41 Impression: Primary Impression: Acute on chronic diastolic heart failure Disposition: 09 ADMITTED INPATIENT Admit to: Tele Condition: Fair Critical Care Note Critical Care Time?: Yes (35 min-critical care time only) Stability Stability form required: Yes Unstable for transfer: Telemetry monitoring (Telemetry monitoring required), ED Physician Assesment (Clinical assesment) Heart Score Heart Score: Heart Score Response (Comments) Value History Highly Suspicious 2 EKG Normal 0 Age 45-64 1 Risk Factors >3 or Hx ASHD 2 Troponin Normal limit 0 Total 5 I personally scribed for ABDOULAYE SCHILLING MD ([email or web address]) on 04/29/24 at 21:03. Electronically submitted by Grady Gregory ([email or web address]). ABDOULAYE SCHILLING MD Apr 29, 2024 21:03
[2024-04-29 21:18] LABS: Basophils # (auto) 0.1 10 ^3/uL (0-0.2); Basophils % (auto) 0.8 % (0.0-2.0); Eosinophils # (auto) 0.3 10 ^3/uL (0-0.8); Eosinophils % (auto) 4.7 % (0.0-7.0); Hematocrit 47.7 % (41.0-53.0); Hemoglobin 15.8 g/dL (13.5-17.5); Lymphocytes # (auto) 1.1 10 ^3/uL (0.4-5.4); Lymphocytes % (auto) 15.9 % (10.0-50.0); Mean Corpuscular Hemoglobin 33.4 pg (28.0-32.0); Mean Corpuscular Hgb Conc. 33.2 g/dL (32.0-36.0); Mean Corpuscular Volume 100.6 fL (80.0-100.0); Monocytes # (auto) 0.7 10 ^3/uL (0-1.3); Monocytes % (auto) 9.7 % (0.0-12.0); Neutrophils # (auto) 4.8 10 ^3/uL (1.6-8.6); Neutrophils % (auto) 68.9 % (37.0-80.0); Platelet Count (auto) 187 10^3/uL (140-450); Red Blood Cells 4.74 10^6/uL (4.5-5.90); Red Cell Distribution Width 13.8 % (11.8-14.3)
[2024-04-29 21:29] LABS: Chloride 107 mmol/L (98-107); Sodium 142 mmol/L (136-145)
[2024-04-29 21:30] LABS: Anion Gap 7 (5-15); Calcium 9.7 mg/dL (8.7-10.4); Carbon Dioxide 28 mmol/L (20-31)
[2024-04-29 21:35] LABS: BUN/Creatinine Ratio 10.3 (10.0-20.0); Blood Urea Nitrogen 14 mg/dL (9-23); Glucose 125 mg/dL (74-106)
--- NOTE | 2024-04-29 21:35 | DVH ---
CHEST RADIOGRAPH Indication: sob Technique: Frontal and lateral view of the chest was obtained Comparison: XY CHEST TWO VIEWS ROUTINE on DOS: 09/13/22, XY CHEST TWO VIEWS ROUTINE on DOS: 09/03/22, CX R2 on DOS: 04/07/22 FINDINGS: Lines and Tubes: None Lungs: Bibasilar atelectasis/ scarring. No focal pneumonia. Pleura: Probable trace bilateral effusions. No pneumothorax. Cardiomediastinal contours: Cardiomegaly Bones: Unremarkable IMPRESSION: 1. Probable trace bilateral effusions
--- NOTE | 2024-04-30 00:14 | DVHHPRES ---
History of Present Illness Resident Creating Document: TRUNG JACKSON RESIDENT History of Present Illness Patient is 58 years old male with past medical history of HFrEF, LVEF 10-15%, hypertension, diabetic neuropathy, hyperlipidemia, PVD, CKD stage IIIA, polysubstance abuse came with a complaint of short of breath for last 7 days. As per patient patient has been having short of breath for last 7 days associated with orthopnea and PND. Patient also endorsed bilateral leg swelling for the same duration. Patient also complained of some cough with whitish phlegm. Patient reported having diarrhea 4 days before but it resolved and no more. Patient denied any chest pain, palpitation, fever, constipation, acute joint swelling, rash, dysarthria or change in vision or hearing problem. Initial lab workup revealed BNP 1009.83, troponin I 18, serum glucose 125, serum creatinine 1.36, GFR 60, MCV 100. CXR revealed bilateral pleural effusion. EKG sinus rhythm with rate around 90-95. Past Medical History HFrEF, LVEF 10-15%, hypertension, diabetic neuropathy, hyperlipidemia, PVD, CKD stage IIIA, polysubstance abuse Past Surgical History None Family History Cancer, mom healthy Review of Systems Review of Systems Allergy- NKDA Personal History/ Social History- -lives alone, smoker, alcoholic, use methamphetamine, Patient was seen today at the bedside. Patient reports shortness of breath Cardiovascular- deny acute chest pain or palpitation Respiratory- denies r wheezing Gastrointestinal- denies any rectal bleeding, nausea or vomiting Musculoskeletal-denies acute joint swelling or tenderness or redness Neurological- denies acute dysarthria, dysphagia, change in vision Psychiatry- denies depression or SI or HI Skin- denies acute rash or purpura Allergies: Coded Allergies: NO KNOWN ALLERGIES (Unverified , 09/24/22) Medications Current Medications Medications Dose Ordered Sig/Conner Route Start Time Stop Time Status Last Admin Dose Admin Aspirin 81 mg DAILY PO 04/30/24 10:00 Carvedilol 3.125 mg BID PO 04/30/24 10:00 Gabapentin 300 mg DAILY PO 04/30/24 10:00 Sodium Chloride 10 ml Q8HR IV 04/30/24 06:00 Docusate Sodium 100 mg BIDPRN PRN PO 04/30/24 00:15 Enoxaparin Sodium 40 mg DAILY SC 04/30/24 10:00 UNV Acetaminophen 650 mg Q6HP PRN PO 04/30/24 00:15 Morphine Sulfate 2 mg Q4HPRN PRN IV 04/30/24 00:15 Nitroglycerin 0.4 mg Q5MINP PRN SL 04/30/24 00:15 Morphine Sulfate 2 mg Q30M PRN IV 04/30/24 00:15 Exam Vital Signs Vital Signs Date Time Temp Pulse Resp B/P (MAP) Pulse Ox O2 Delivery O2 Flow Rate FiO2 04/29/24 21:03 94 04/29/24 20:45 97.6 20 159/102 (121) 98 Exam General examination- awake, alert, oriented, conversant HEENT- PEERLA, no acute nasal discharge Cardiovascular- S1-S2 audible, rate and rhythm regular, no murmur Respiratory- lung crackles+, diminished breath sound at the lung base Gastrointestinal-nontender, bowel sound+. Nondistended Musculoskeletal-no acute joint swelling or tenderness or redness# Lower extremity- bilateral leg edema++ Neurological- cranial nerves intact, no acute dysarthria or dysphagia Psychiatry- denies depression or SI or HI Skin- lusterless skin Labs/Xrays Labs Test 04/29/24 21:00 Range/Units White Blood Count 7.0 4.4-10.8 10^3/uL Red Blood Count 4.74 4.5-5.90 10^6/uL Hemoglobin 15.8 13.5-17.5 g/dL Hematocrit 47.7 41.0-53.0 % Mean Corpuscular Volume 100.6 H 80.0-100.0 fL Mean Corpuscular Hemoglobin 33.4 H 28.0-32.0 pg Mean Corpuscular Hemoglobin Concent 33.2 32.0-36.0 g/dL Red Cell Distribution Width 13.8 11.8-14.3 % Platelet Count 187 140-450 10^3/uL Mean Platelet Volume 8.5 6.9-10.8 fL Neutrophils (%) (Auto) 68.9 37.0-80.0 % Lymphocytes (%) (Auto) 15.9 10.0-50.0 % Monocytes (%) (Auto) 9.7 0.0-12.0 % Eosinophils (%) (Auto) 4.7 0.0-7.0 % Basophils (%) (Auto) 0.8 0.0-2.0 % Neutrophils # (Auto) 4.8 1.6-8.6 10 ^3/uL Lymphocytes # (Auto) 1.1 0.4-5.4 10 ^3/uL Monocytes # (Auto) 0.7 0-1.3 10 ^3/uL Eosinophils # (Auto) 0.3 0-0.8 10 ^3/uL Basophils # (Auto) 0.1 0-0.2 10 ^3/uL Nucleated Red Blood Cells 0.0 % Sodium Level 142 136-145 mmol/L Potassium Level 4.0 3.5-5.1 mmol/L Chloride Level 107 98-107 mmol/L Carbon Dioxide Level 28 20-31 mmol/L Anion Gap 7 5-15 Blood Urea Nitrogen 14 9-23 mg/dL Creatinine 1.36 H 0.700-1.30 mg/dL Glomerular Filtration Rate Calc 60 >90 mL/min BUN/Creatinine Ratio 10.3 10.0-20.0 Serum Glucose 125 H 74-106 mg/dL Calcium Level 9.7 8.7-10.4 mg/dL Troponin I High Sensitivity 80 *H </=54 ng/L B-Type Natriuretic Peptide 1009.83 0-100 pg/mL Assessment/Plan Assessment/Plan # Acute hypoxic respiratory failure due to acute on chronic HFrEF, -On 06/11/2023 ECHO 2D revealed-Severely dilated left ventricle. Severely reduced left ventricular systolic function estimate ejection fraction of 10-15% There is a global left ventricular wall akinesia. There is a grade 2 diastolic dysfunction. Moderate to severely dilated right ventricle. Severely reduced right ventricular systolic function. Mildly elevated right ventricular systolic pressure at 30 mmHg. Moderate left and right atrial dilatation. -continue Lasix 40 mg b.i.d. -carvedilol 3.125 mg p.o. b.i.d. --Entresto 24-26 1 tab p.o. b.i.d. -avoided spironolactone and Entresto for now due to CKD stage IIIA -plan is to start Jardiance on discharge or after cardiology consult -ordered cardiology consult for further evaluation and care -pending echo 2D # Acute shortness of breaths, orthopnea and PND due to acute on chronic HFrEF, On 06/11/2023 ECHO 2D revealed-Severely dilated left ventricle. Severely reduced left ventricular systolic function estimate ejection fraction of 10-15% There is a global left ventricular wall akinesia. Moderate left and right atrial dilatation. -continue Lasix 40 mg b.i.d. -carvedilol 3.125 mg p.o. b.i.d. -Entresto 1 tab p.o. b.i.d. -avoided spironolactone and Entresto for now due to CKD stage IIIA -plan is to start Jardiance on discharge or after cardiology consult -ordered cardiology consult for further evaluation and care #NSTEMI type 2 likely due to demand related ischemia -EKG sinus rhythm, no acute ST change -troponin I 80 -pending cardiology consult -pending echo 2D report -pending echo 2D -continue aspirin 81 mg daily -continue atorvastatin 40 mg q.h.s. # Bilateral pleural effusion likely due to acute on chronic HFrEF, -On 06/11/2023 ECHO 2D revealed-Severely dilated left ventricle. Severely reduced left ventricular systolic function estimate ejection fraction of 10-15% There is a global left ventricular wall akinesia. Moderate left and right atrial dilatation. -continue Lasix 40 mg b.i.d. -carvedilol 3.125 mg p.o. b.i.d. --Entresto 1 tab p.o. b.i.d. # Bilateral leg edema likely due to acute on chronic HFrEF, -On 06/11/2023 ECHO 2D revealed-Severely dilated left ventricle. Severely reduced left ventricular systolic function estimate ejection fraction of 10-15% -continue Lasix 40 mg b.i.d. -carvedilol 3.125 mg p.o. b.i.d. --Entresto 1 tab p.o. b.i.d. # Dilated cardiomyopathy, maybe substance abuse like marijuana -patient with a history of substance abuse marijuana -continue Lasix 40 mg IV b.i.d. -Entresto 1 tab p.o. b.i.d. -carvedilol 3.125 mg p.o. b.i.d. -pending echo 2D -pending cardiology consult # hypertension --continue Lasix 40 mg b.i.d. -carvedilol 3.125 mg p.o. b.i.d. --carvedilol 3.125 mg p.o. b.i.d. --Entresto - 1 tab p.o. b.i.d. # diabetes mellitus type 2 -pending HGB A1c -insulin sliding scale -monitor blood sugar # peripheral vascular disease --continue aspirin 81 mg daily -continue atorvastatin 40 mg q.h.s. # diabetic neuropathy -continue gabapentin as prescribed # hyperlipidemia -continue atorvastatin 40 mg q.h.s. # history of polysubstance abuse, marijuana -patient was counseled about the effect of polysubstance abuse on health # CKD stage 3A -avoid dehydration and nephrotoxic drugs Goals of care/advance care planning; FULL CODE; discussed with the patient >15 minutes PUD prophylaxis: DVT prophylaxis: Lovenox Plan discussed with Dr. Lim, nursing staff, patient Total time spent on patient evaluation, chart review, assessment and plan, discussion discussion >30 minutes Plan discussed with: Patient Plan discussed with: Patient, Other (RN) My Orders Orders - TRUNG JACKSON RESIDENT Procedure Category Date Status Time Magnesium LAB 04/29/24 In Process 23:47 Complete Blood Count LAB 04/30/24 Logged 04:00 Comprehensive LAB 04/30/24 Logged Metabolic Panel 04:00 Magnesium LAB 04/30/24 Logged 04:00 Echo 2d Mode Cardiac US 04/29/24 Logged DOP 23:48 * Cardiology Consult CONS 04/29/24 Transmitted 23:48 Aspirin Enteric PHA 04/30/24 In Process Coated Tablet 10:00 Carvedilol Tablet PHA 04/30/24 In Process (Coreg Tablet) 10:00 Gabapentin Capsule PHA 04/30/24 In Process (Neurontin Capsule) 10:00 Admit ADMIT 04/30/24 Transmitted 00:05 Code Status CODE 04/30/24 Transmitted 00:05 2 Gm Sodium Diet DIET 04/30/24 Transmitted Breakfast Renal DIET 04/30/24 Transmitted Standard(2gna,3gk,Lopho) Breakfast Sodium Chloride Lock PHA 04/30/24 Logged (Saline Lock Ns) 06:00 Docusate Sodium PHA 04/30/24 Logged Capsule (Colace 00:15 Enoxaparin Sodium PHA 04/30/24 Logged (Lovenox) 10:00 Cardiac DIET 04/30/24 Transmitted Diet-2gna,Lofat,Lochol Breakfast Acetaminophen Tablet PHA 04/30/24 Logged (Tylenol Tablet) 00:15 Morphine Sulfate [facility] 04/30/24 Logged Injection 00:15 Nitroglycerin [facility] 04/30/24 Logged Sublingual (Ntrostat 00:15 Morphine Sulfate [facility] 04/30/24 Logged Injection 00:15 Oxygen By Nasal RT 04/30/24 Transmitted Cannula 00:05 Stat Ekg For Chest [facility] 04/30/24 In Process Pain 00:05 Notify Of Changes [facility] 04/30/24 In Process From Base 00:05 Rescue Worker For [facility] 04/30/24 In Process 24 Hours 00:05 Emergency Dysrhythmia [facility] 04/30/24 In Process Protocol 00:05 Rhythm Strips Once [facility] 04/30/24 In Process Every Shift 00:05 Furosemide Injection [facility] 04/30/24 Logged (Lasix Injection) 00:15 Date of Service: Apr 30, 2024 Billing Provider: RICHIE LIM MD Common Visit Codes: 29592-MAGNIBR INP/OBS CARE (HIGH) Secondary Visit Codes: 33933-[id number] CARE PLAN 30 MINUTES RTUNG JACKSON RESIDENT Apr 30, 2024 00:14 RICHIE LIM MD Apr 30, 2024 09:15
[2024-04-30] MEDS ORDERED: NITROGLYCERIN 0.4 MG SL TAB SL PRN (00:15)
[2024-04-30] MEDS ORDERED: ACETAMINOPHEN 325 MG TAB PO PRN (00:15)
[2024-04-30] MEDS ORDERED: MORPHINE SULFATE INJ 2 MG/ml SYRG IV PRN ×2 (00:15)
[2024-04-30] MEDS ORDERED: DOCUSATE SOD 100 MG CAP PO PRN (00:15)
[2024-04-30] MEDS ORDERED: FUROSEMIDE 40 MG/4 ML VIAL IV ONE (00:15)
[2024-04-30] MEDS: LISINOPRIL 5 MG TAB PO SCH (01:00)
[2024-04-30 03:10] VITALS: BP 140/89; PULSE 106; RESP 18; TEMP 98.6; O2SAT 97
[2024-04-30] MEDS: LISINOPRIL 5 MG TAB PO ONE (03:20)
[2024-04-30] MEDS ORDERED: MAGNESIUM SULFATE 1GM/100ML 100 ML IV ONE (03:30)
[2024-04-30] MEDS ORDERED: FUROSEMIDE 40 MG/4 ML VIAL IV SCH (06:00)
[2024-04-30] MEDS: SODIUM CHLOR 0.9% PF (SALINE LOCK) 10ML VIAL/SYR IV SCH (06:13)
--- NOTE | 2024-04-30 08:26 | DVHDSRES ---
Discharge Summary Date of Admission Resident Creating Document: TRUNG JACKSON RESIDENT Apr 30, 2024 at 00:08 Date of Discharge: Apr 30, 2024 Admitting Diagnosis Shortness of Breath and leg swelling Labs/Diagnostic Data: Laboratory Results Test 04/29/24 21:00 White Blood Count 7.0 10^3/uL (4.4-10.8) Red Blood Count 4.74 10^6/uL (4.5-5.90) Hemoglobin 15.8 g/dL (13.5-17.5) Hematocrit 47.7 % (41.0-53.0) Mean Corpuscular Volume 100.6 fL (80.0-100.0) Mean Corpuscular Hemoglobin 33.4 pg (28.0-32.0) Mean Corpuscular Hemoglobin Concent 33.2 g/dL (32.0-36.0) Red Cell Distribution Width 13.8 % (11.8-14.3) Platelet Count 187 10^3/uL (140-450) Mean Platelet Volume 8.5 fL (6.9-10.8) Neutrophils (%) (Auto) 68.9 % (37.0-80.0) Lymphocytes (%) (Auto) 15.9 % (10.0-50.0) Monocytes (%) (Auto) 9.7 % (0.0-12.0) Eosinophils (%) (Auto) 4.7 % (0.0-7.0) Basophils (%) (Auto) 0.8 % (0.0-2.0) Neutrophils # (Auto) 4.8 10 ^3/uL (1.6-8.6) Lymphocytes # (Auto) 1.1 10 ^3/uL (0.4-5.4) Monocytes # (Auto) 0.7 10 ^3/uL (0-1.3) Eosinophils # (Auto) 0.3 10 ^3/uL (0-0.8) Basophils # (Auto) 0.1 10 ^3/uL (0-0.2) Nucleated Red Blood Cells 0.0 % Sodium Level 142 mmol/L (136-145) Potassium Level 4.0 mmol/L (3.5-5.1) Chloride Level 107 mmol/L (98-107) Carbon Dioxide Level 28 mmol/L (20-31) Anion Gap 7 (5-15) Blood Urea Nitrogen 14 mg/dL (9-23) Creatinine 1.36 mg/dL (0.700-1.30) Glomerular Filtration Rate Calc 60 mL/min (>90) BUN/Creatinine Ratio 10.3 (10.0-20.0) Serum Glucose 125 mg/dL (74-106) Calcium Level 9.7 mg/dL (8.7-10.4) Magnesium Level 1.8 mg/dL (1.6-2.6) Troponin I High Sensitivity 80 ng/L (</=54) B-Type Natriuretic Peptide 1009.83 pg/mL (0-100) Plasma/Serum Blood Alcohol < 3.0 mg/dL (<10) Other Laboratory Tests 04/29/24 21:00 Brief Hx & Hospital Course: Patient is 58 years old male with past medical history of HFrEF, LVEF 10-15%, hypertension, diabetic neuropathy, hyperlipidemia, PVD, CKD stage IIIA, polysubstance abuse came with a complaint of short of breath for last 7 days. As per patient patient has been having short of breath for last 7 days associated with orthopnea and PND. Patient also endorsed bilateral leg swelling for the same duration. Patient also complained of some cough with whitish phlegm. Patient reported having diarrhea 4 days before but it resolved and no more. Patient denied any chest pain, palpitation, fever, constipation, acute joint swelling, rash, dysarthria or change in vision or hearing problem. Initial lab workup revealed BNP 1009.83, troponin I 18, serum glucose 125, serum creatinine 1.36, GFR 60, MCV 100. CXR revealed bilateral pleural effusion. EKG sinus rhythm with rate around 90-95. Condition at Discharge: Undetermined Final Diagnosis/Problems List Acute hypoxic respiratory failure due to acute on chronic HFrEF, # Acute shortness of breaths, orthopnea and PND due to acute on chronic HFrEF, #NSTEMI type 2 likely due to demand related ischemia # Bilateral pleural effusion likely due to acute on chronic HFrEF # Bilateral leg edema likely due to acute on chronic HFrEF # Dilated cardiomyopathy, maybe substance abuse like marijuana Hypertension Diabetes mellitus type 2 Peripheral hospital disease Diabetic neuropathy Hyperlipidemia History of Polysubstance abuse, marijuana CKD stage IIIA Discharge Disposition: Eloped Discharge Statement: "Patient was advised to return to the ER or call 911 if any headaches, dizziness, shortness of breath, chest pain, abdominal pain, bleeding, fevers, or worsening of medical condition. Patient was counseled about treatment plan, medications, possible side effects, patientverbalized understanding. All questions were answered to the best of my ability. This discharge took greater then 30 minutes in planning, reviewing documentation, counseling the patient, and discussing with other team members." ASSESSMENT ASSESSMENT Assessment Date of Service: Apr 30, 2024 Billing Provider: RICHIE LIM MD Common Visit Codes: 51338-IDH/OBS DISCH DAY >30min TRUNG JACKSON RESIDENT Apr 30, 2024 08:26 RICHIE LIM MD Apr 30, 2024 09:17
[2024-04-30] MEDS ORDERED: SACUBITRIL-VALSARTAN 24mg/26mg TAB PO SCH (10:00)
[2024-04-30] MEDS ORDERED: CARVEDILOL 3.125 MG TAB PO SCH (10:00)
[2024-04-30] MEDS ORDERED: GABAPENTIN 300 MG CAP PO SCH (10:00)
[2024-04-30] MEDS ORDERED: ASPirin-EC 81 mg tab PO SCH (10:00)
[2024-04-30] MEDS ORDERED: NICOTINE 14 MG/24HR TOPICAL PATCH TD SCH (10:00)
[2024-04-30] MEDS ORDERED: ENOXAPARIN SOD 40 MG/0.4 ML SYRINGE SC SCH (10:00)
[2024-04-30] MEDS ORDERED: SPIRONOLACTONE 25 MG TAB PO SCH (10:00)
[2024-04-30] MEDS ORDERED: ATORVASTATIN 20 MG TAB PO SCH (22:00)
== END 2024-04-30 18:21 | disposition left against medical advice (07) | DRG 133 ==
LOC: ER 20:25 → TELE 04-30 00:08
PROVIDERS: ADMIT Internal Medicine; ATTEND Internal Medicine
DX: J96.01 Acute respiratory failure with hypoxia (principal); I21.A1 Myocardial infarction type 2; I50.23 Acute on chronic systolic (congestive) heart failure; I42.0 Dilated cardiomyopathy; I13.0 Hypertensive heart and chronic kidney disease with heart failure and stage 1 through stage 4 chronic kidney disease, or unspecified chronic kidney disease; E11.40 Type 2 diabetes mellitus with diabetic neuropathy, unspecified; E11.51 Type 2 diabetes mellitus with diabetic peripheral angiopathy without gangrene; E78.5 Hyperlipidemia, unspecified; F12.10 Cannabis abuse, uncomplicated; N18.31 Chronic kidney disease, stage 3a; E11.22 Type 2 diabetes mellitus with diabetic chronic kidney disease; Z79.899 Other long term (current) drug therapy; Z87.891 Personal history of nicotine dependence
CPT/HCPCS: 36415; 71046; 80048; 80320; 83735; 83880; 84484; 85025; 93005; 99291; G0378

== ENCOUNTER 2024-04-30 16:19 | Inpatient (IN) | payer OTHER ==
[~2024-04-30] VITALS: Ht 177.8 cm; Wt 82.3 kg
--- NOTE | 2024-04-30 16:55 | ED.PDOC ---
SOB-HPI HPI Comments 58 year old male presents to the ED with chief complaint of SOB. Patient reports that he has been experiencing SOB with associated non-productive cough and bilateral extremity swelling for the past week. Patient relays that he was seen yesterday by [facility] and put up for admission, but he eloped due to the admitting doctor not putting in 80mg of Lasix which works for him instead of 40mg Lasix. Patient states he is unable to lay flat without discomfort. Patient denies any chest pain, dizziness, N/V, headache, numbness, or weakness. Chief Complaint: Shortness of Breath Time Seen by MD: 16:50 Primary Care Provider: Sid Becerril notes: Nurses Notes, Medications, Allergies Information Source: Patient Mode of Arrival: Ambulatory Severity: Moderate Timing: Weeks Duration: Since onset Context: At Rest PE Risk Factors: None History of: CHF Prehospital treatment: None Modifying Factors: Nothing Associated Signs and Symptoms: Cough, Leg Swelling If cough with SOB: Non-Productive Past Medical History PAST MEDICAL HISTORY: CHF, DM, High Lipids, HTN Surgical History: Denies all surgeries Family History Family History: No family hx of Cancer, No family hx of DM, No family hx of HTN, No family hx ofKidney tha, No family hx of Liver tha, No family hx of Lung tha, No family hx of Stroke, Family hx of heart tha Social History Smoker: Quit Greater Than 1 Year, Cigarettes Alcohol: Occasionally Drugs: Methamphetamine Lives In: Home Constitutional: denies: chills, diaphoresis, fatigue, fever, malaise, sweats, weakness, others EENTM: denies: blurred vision, double vision, ear bleeding, ear discharge, ear drainage, ear pain, ear ringing, eye pain, eye redness, hearing loss, mouth pain, mouth swelling, nasal discharge, nose bleeding, nose congestion, nose pain, photophobia, tearing, throat pain, throat swelling, voice changes, others Respiratory: reports: cough, shortness of breath; denies: hemoptysis, orthopnea, SOB at rest, SOB with excertion, stridor, wheezing, others Cardiovascular: reports: edema; denies: chest pain, dizzy spells, diaphoresis, Dyspnea on exertion, irregular heart beat, left arm pain, lightheadedness, palpitations, PND, syncope, others Gastrointestinal: denies: abdomen distended, abdominal pain, blood streaked bowels, constipated, diarrhea, dysphagia, difficulty swallowing, hematemesis, melena, nausea, poor appetite, poor fluid intake, rectal bleeding, rectal pain, vomiting, others Genitourinary: denies: burning, dysuria, flank pain, frequency, hematuria, incontinence, penile discharge, penile sore, pain, testicle pain, testicle swelling, urgency, others Neurological: denies: dizziness, fainting, headache, left sided numbness, left sided weakness, numbness, paresthesia, pre-existing deficit, right sided numbness, right sided weakness, seizure, speech problems, tingling, tremors, weakness, others Musculoskeletal: denies: back pain, gout, joint pain, joint swelling, muscle pain, muscle stiffness, neck pain, others Integumetry: denies: bruises, change in color, change in hair/nails, dryness, laceration, lesions, lumps, rash, wounds, others Allergic/Immunocompromised: denies: Difficulty Healing, Frequent Infections, Hives, Itching, others Hematologic/Lymphatic: denies: anemia, blood clots, easy bleeding, easy bruising, swollen glands, others Endocrine: denies: excessive hunger, excessive sweating, excessive thirst, excessive urination, flushing, intolerance to cold, intolerance to heat, unexpla ined weight gain, unexplained weight loss, others Psychiatric: denies: anxiety, bipolar disorder, depression, hopeless, panic disorder, schizophrenia, sleepless, suicidal, others All Other Systems: Reviewed and Negative Physical Exam General Appearance: No Apparent Distress, Normal HEENT: Normal ENT Inspection, PERRL/EOMI Neck: Full Range of Motion, Non-Tender, Normal, Normal Inspection Respiratory: Chest Non-Tender, Lungs Clear, No Accessory Muscle Use, No Respiratory Distress, Other (Crackles bilaterally) Cardiovascular: No Edema, No JVD, No Murmur, No Gallop, Normal Peripheral Pulses, Regular Rate/Rhythm Breast Exam: Deferred Gastrointestinal: No Organomegaly, Non Tender, No Pulsatile Mass, Normal Bowel Sounds, Soft Genitalia: Deferred Pelvic: Deferred Rectal: Deferred Extremities: No calf tenderness, Normal capillary refill, Normal inspection, Normal range of motion, Swelling (2+ pitting edema to bilateral lower extremities) Musculoskeletal : Apperance: Normal Neurologic: Alert, nutrition manager II-XII nml as 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 Was a procedure done?: No Differential Dx Differential Diagnosis: CHF, COPD, Hypertension, Hyperventilation, Myocardial infarction X-Ray, Labs, Meds, VS Vital Signs Date Time Temp Pulse Resp B/P (MAP) Pulse Ox O2 Delivery O2 Flow Rate FiO2 04/30/24 16:40 98.1 105 18 152/96 (114) 97 Lab Test 04/30/24 17:09 04/30/24 16:53 Range/Units White Blood Count 7.2 4.4-10.8 10^3/uL Red Blood Count 4.58 4.5-5.90 10^6/uL Hemoglobin 15.4 13.5-17.5 g/dL Hematocrit 45.6 41.0-53.0 % Mean Corpuscular Volume 99.6 80.0-100.0 fL Mean Corpuscular Hemoglobin 33.6 H 28.0-32.0 pg Mean Corpuscular Hemoglobin Concent 33.7 32.0-36.0 g/dL Red Cell Distribution Width 13.6 11.8-14.3 % Platelet Count 178 140-450 10^3/uL Mean Platelet Volume 8.8 6.9-10.8 fL Neutrophils (%) (Auto) 71.3 37.0-80.0 % Lymphocytes (%) (Auto) 14.0 10.0-50.0 % Monocytes (%) (Auto) 9.8 0.0-12.0 % Eosinophils (%) (Auto) 4.2 0.0-7.0 % Basophils (%) (Auto) 0.7 0.0-2.0 % Neutrophils # (Auto) 5.2 1.6-8.6 10 ^3/uL Lymphocytes # (Auto) 1.0 0.4-5.4 10 ^3/uL Monocytes # (Auto) 0.7 0-1.3 10 ^3/uL Eosinophils # (Auto) 0.3 0-0.8 10 ^3/uL Basophils # (Auto) 0.1 0-0.2 10 ^3/uL Nucleated Red Blood Cells 0.1 % Sodium Level Pending Potassium Level Pending Chloride Level Pending Carbon Dioxide Level Pending Anion Gap Pending Blood Urea Nitrogen Pending Creatinine Pending Glomerular Filtration Rate Calc Pending BUN/Creatinine Ratio Pending Serum Glucose Pending Calcium Level Pending Troponin I High Sensitivity Pending B-Type Natriuretic Peptide Pending POC Glucose 175 H 70-106 mg/dl Time of 1ST Reevaluation: 17:50 Reevaluation 1ST: Unchanged Patient Education/Counseling: Diagnosis, Treatment Family Education/Counseling: No Family Present Departure 1 Departure Time of Disposition: 17:39 (Patient presented with SOB that was concerning for possible STEMI, ACS, PE, Pneumonia, Muscle Strain, CHF, COPD, Dissection. Data: 1. I ordered and reviewed the result of at least 3 labs including a CBC, BMP, and Troponin. 2. I independently interpreted the following tests: EKG which shows sinus rhythm and Chest X-ray which shows vascular congestion.Risk:This patient has a high risk of morbidity due to further diagnostic testing or treatment and may suffer from an acute cardiac or respiratory disorder. Workup reveals acute chf with new o2 requirement and patient should be admitted for further workup and possible expert consultation. ) Impression: Primary Impression: Acute exacerbation of CHF (congestive heart failure) Qualified Codes: I50.43 - Acute on chronic combined systolic (congestive) and diastolic (congestive) heart failure Disposition: ADMITTED INPATIENT Admit to: Med Surg Condition: Serious Critical Care Note Critical Care Time?: Yes Critical care comment: Acute shortness of breath Authorized and Performed by: Kia Stephenson MD Total critical care time: Approximately 38 minutes Due to a high probability of clinically significant, life threatening deterioration, the patient required my highest level of preparedness to intervene emergently and I personally spent this critical care time directly and personally managing the patient. This critical care time included obtaining a history; examining the patient; pulse oximetry; ordering and review of studies; arranging urgent treatment with development of a management plan; evaluation of patient's response to treatment; frequent reassessment; and, discussions with other providers. This critical care time was performed to assess and manage the high probability of imminent, life-threatening deterioration that could result in multi-organ failure. It was exclusive of separately billable procedures and treating other patients and teaching time. Please see my other sections and the rest of the note for further information on patient assessment and treatment. Stability Stability form required: No Heart Score Heart Score: Heart Score Response (Comments) Value History Moderate Suspicious 1 EKG Normal 0 Age 45-64 1 Risk Factors 1 or 2 risk factors 1 Troponin N/A 0 Total 3 I personally scribed for KIA STEPHENSON MD ([email or web address]) on 04/30/24 at 16:55. Electronically submitted by Shay Briseno ([email or web address]). KIA STEPHENSON MD Apr 30, 2024 16:55
[2024-04-30 17:31] LABS: Basophils # (auto) 0.1 10 ^3/uL (0-0.2); Basophils % (auto) 0.7 % (0.0-2.0); Eosinophils # (auto) 0.3 10 ^3/uL (0-0.8); Eosinophils % (auto) 4.2 % (0.0-7.0); Hematocrit 45.6 % (41.0-53.0); Hemoglobin 15.4 g/dL (13.5-17.5); Mean Corpuscular Hemoglobin 33.6 pg (28.0-32.0); Mean Corpuscular Hgb Conc. 33.7 g/dL (32.0-36.0); Mean Corpuscular Volume 99.6 fL (80.0-100.0); Monocytes # (auto) 0.7 10 ^3/uL (0-1.3); Monocytes % (auto) 9.8 % (0.0-12.0); Neutrophils # (auto) 5.2 10 ^3/uL (1.6-8.6); Neutrophils % (auto) 71.3 % (37.0-80.0); Nucleated Red Blood Cells % 0.1 %; Platelet Count (auto) 178 10^3/uL (140-450); Red Blood Cells 4.58 10^6/uL (4.5-5.90); Red Cell Distribution Width 13.6 % (11.8-14.3); White Blood Cell 7.2 10^3/uL (4.4-10.8)
--- NOTE | 2024-04-30 17:38 | DVH ---
EXAM: XR Chest, 2 Views CLINICAL INDICATION: SOB TECHNIQUE: Frontal and lateral views of the chest. COMPARISON: XY CHEST TWO VIEWS ROUTINE on DOS: 04/29/24, XY CHEST TWO VIEWS ROUTINE on DOS: 09/13/22, XY CHEST TWO VIEWS ROUTINE on DOS: 09/03/22 FINDINGS: LUNGS AND PLEURAL SPACES: Right basilar atelectasis or pneumonia. No pneumothorax. HEART: Unremarkable. No cardiomegaly. MEDIASTINUM: Unremarkable. Normal mediastinal contour. BONES/JOINTS: Unremarkable. No acute fracture. OTHER FINDINGS: . . IMPRESSION: Right basilar atelectasis or pneumonia. HS:Y
[2024-04-30 17:43] LABS: Anion Gap 5 (5-15); Carbon Dioxide 31 mmol/L (20-31); Chloride 106 mmol/L (98-107); Potassium 4.5 mmol/L (3.5-5.1); Sodium 142 mmol/L (136-145)
[2024-04-30 17:49] LABS: BUN/Creatinine Ratio 13.3 (10.0-20.0); Blood Urea Nitrogen 19 mg/dL (9-23); Glucose 178 mg/dL (74-106)
[2024-04-30 20:22] LABS: Urine Bacteria None Seen /hpf (None Seen)
[2024-04-30 20:41] LABS: Urine Blood 1+ /uL (Negative); Urine Clarity Turbid (Clear); Urine Color Yellow (Yellow); Urine Mucus FEW (None Seen); Urine Protein, UAD 2+ (Negative); Urine Specific Gravity 1.031 (1.001-1.035); Urine Urobilinogen 4 mg/dL (Negative); Urine WBC 3 /hpf (0 - 3); Urine pH 5.5 (5.0-9.0)
--- NOTE | 2024-04-30 20:59 | DVHHPRES ---
History of Present Illness Resident Creating Document: TRUNG JACKSON RESIDENT History of Present Illness Patient is 58 years old male with past medical history of HFrEF, LVEF 10-15%, hypertension, diabetic neuropathy, hyperlipidemia, PVD, CKD stage IIIA, polysubstance abuse came with a complaint of short of breath for last 8 days. As per patient patient has been having short of breath for last 8 days associated with orthopnea and PND. Patient also endorsed bilateral leg swelling for the same duration. Patient also complained of some cough with whitish phlegm. Patient unable to complete a sentence due to shortness of breath during conversation. Patient reported having diarrhea 5 days before but it resolved and no more. Patient denied any chest pain, palpitation, fever, constipation, acute joint swelling, rash, dysarthria or change in vision or hearing problem. Patient was at the [facility] ER last night than eloped early in the morning. EKG sinus tachycardia, other lab workup revealed serum creatinine 1.43, GFR 56, serum glucose 178, troponin I> 73> 77> 80, BNP 1051.47, potassium 4.5. -On 06/11/2023 ECHO 2D revealed-Severely dilated left ventricle. Severely red uced left ventricular systolic function estimate ejection fraction of 10-15% There is a global left ventricular wall akinesia. There is a grade 2 diastolic dysfunction. Moderate to severely dilated right ventricle. Severely reduced right ventricular systolic function. Mildly elevated right ventricular systolic pressure at 30 mmHg. Past Medical History HFrEF, LVEF 10-15%, hypertension, diabetic neuropathy, hyperlipidemia, PVD, CKD stage IIIA, polysubstance abuse Past Surgical History none Family History DAD-Cancer, mom healthy Past Social History Personal History/ Social History- -lives alone, smoker, alcoholic, use methamphetamine, Review of Systems Review of Systems Allergy- NKDA Personal History/ Social History- -lives alone, smoker, alcoholic, use methamphetamine, Patient was seen today at the bedside. Patient reports shortness of breath Cardiovascular- deny acute chest pain or palpitation Respiratory- denies wheezing Gastrointestinal- denies any rectal bleeding, nausea or vomiting Musculoskeletal-denies acute joint swelling or tenderness or redness Neurological- denies acute dysarthria, dysphagia, change in vision Psychiatry- denies depression or SI or HI Skin- denies acute rash or purpura Allergies: Coded Allergies: NO KNOWN ALLERGIES (Unverified , 09/24/22) Medications Current Medications Medications Dose Ordered Sig/Conner Route Start Time Stop Time Status Last Admin Dose Admin Sodium Chloride 10 ml Q8HR IV 04/30/24 22:00 UNV Docusate Sodium 100 mg BIDPRN PRN PO 04/30/24 21:00 UNV Acetaminophen 650 mg Q6HP PRN PO 04/30/24 21:00 UNV Morphine Sulfate 2 mg Q4HPRN PRN IV 04/30/24 21:00 UNV Nitroglycerin 0.4 mg Q5MINP PRN SL 04/30/24 21:00 UNV Morphine Sulfate 2 mg Q30M PRN IV 04/30/24 21:00 UNV Exam Vital Signs Vital Signs Date Time Temp Pulse Resp B/P (MAP) Pulse Ox O2 Delivery O2 Flow Rate FiO2 04/30/24 16:40 98.1 105 18 152/96 (114) 97 Exam General examination- awake, alert, oriented, conversant HEENT- PEERLA, no acute nasal discharge Cardiovascular- S1-S2 audible, rate and rhythm regular, no murmur Respiratory- lung crackles+, diminished breath sound at the lung base Gastrointestinal-nontender, bowel sound+. Nondistended Musculoskeletal-no acute joint swelling or tenderness or redness# Lower extremity- bilateral leg edema++, left foot ulcer just above the left malleolus Neurological- cranial nerves intact, no acute dysarthria or dysphagia Psychiatry- denies depression or SI or HI Skin- lusterless skin Labs/Xrays Labs Test 04/30/24 20:20 04/30/24 19:51 04/30/24 17:09 04/30/24 16:53 Range/Units Urine Color Yellow Yellow Urine Clarity Turbid H Clear Urine pH 5.5 5.0-9.0 Urine Specific [place] 1.031 1.001-1.035 Urine Protein 2+ H Negative Urine Ketones Negative Negative Urine Blood 1+ H Negative /uL Urine Nitrite Negative Negative Urine Bilirubin Negative Negative Urine Urobilinogen 4 H Negative mg/dL Urine Leukocyte Esterase Negative Negative /uL Urine RBC 4 0 - 3 /hpf Urine WBC 3 0 - 3 /hpf Urine Squamous Epithelial Cells Few <5 /hpf Urine Calcium Oxalate Crystals Many None Seen Urine Bacteria None seen None Seen /hpf Urine Mucus Few None Seen Urine Glucose 1+ H Normal mg/dL Troponin I High Sensitivity 80 *H </=54 ng/L White Blood Count 7.2 4.4-10.8 10^3/uL Red Blood Count 4.58 4.5-5.90 10^6/uL Hemoglobin 15.4 13.5-17.5 g/dL Hematocrit 45.6 41.0-53.0 % Mean Corpuscular Volume 99.6 80.0-100.0 fL Mean Corpuscular Hemoglobin 33.6 H 28.0-32.0 pg Mean Corpuscular Hemoglobin Concent 33.7 32.0-36.0 g/dL Red Cell Distribution Width 13.6 11.8-14.3 % Platelet Count 178 140-450 10^3/uL Mean Platelet Volume 8.8 6.9-10.8 fL Neutrophils (%) (Auto) 71.3 37.0-80.0 % Lymphocytes (%) (Auto) 14.0 10.0-50.0 % Monocytes (%) (Auto) 9.8 0.0-12.0 % Eosinophils (%) (Auto) 4.2 0.0-7.0 % Basophils (%) (Auto) 0.7 0.0-2.0 % Neutrophils # (Auto) 5.2 1.6-8.6 10 ^3/uL Lymphocytes # (Auto) 1.0 0.4-5.4 10 ^3/uL Monocytes # (Auto) 0.7 0-1.3 10 ^3/uL Eosinophils # (Auto) 0.3 0-0.8 10 ^3/uL Basophils # (Auto) 0.1 0-0.2 10 ^3/uL Nucleated Red Blood Cells 0.1 % Sodium Level 142 136-145 mmol/L Potassium Level 4.5 3.5-5.1 mmol/L Chloride Level 106 98-107 mmol/L Carbon Dioxide Level 31 20-31 mmol/L Anion Gap 5 5-15 Blood Urea Nitrogen 19 9-23 mg/dL Creatinine 1.43 H 0.700-1.30 mg/dL Glomerular Filtration Rate Calc 56 >90 mL/min BUN/Creatinine Ratio 13.3 10.0-20.0 Serum Glucose 178 H 74-106 mg/dL Calcium Level 10.0 8.7-10.4 mg/dL B-Type Natriuretic Peptide 1051.47 0-100 pg/mL POC Glucose 175 H 70-106 mg/dl Assessment/Plan Assessment/Plan # Acute hypoxic respiratory failure due to acute on chronic HFrEF, -Patient unable to complete a sentence due to shortness of breath during conversation. -On 06/11/2023 ECHO 2D revealed-Severely dilated left ventricle. Severely reduced left ventricular systolic function estimate ejection fraction of 10-15% There is a global left ventricular wall akinesia. There is a grade 2 diastolic dysfunction. Moderate to severely dilated right ventricle. Severely reduced right ventricular systolic function. Mildly elevated right ventricular systolic pressure at 30 mmHg. Moderate left and right atrial dilatation. -continue Lasix 40 mg b.i.d. -carvedilol 3.125 mg p.o. b.i.d. --Entresto 24- 1 tab p.o. b.i.d. -plan is to start Jardiance on discharge or after cardiology consult -ordered cardiology consult for further evaluation and care -pending echo 2D -continue telemetry # Acute shortness of breaths, orthopnea and PND due to acute on chronic HFrEF, -Patient unable to complete a sentence due to shortness of breath during conversation. -On 06/11/2023 ECHO 2D revealed-Severely dilated left ventricle. Severely reduced left ventricular systolic function estimate ejection fraction of 10-15% There is a global left ventricular wall akinesia. Moderate left and right atrial dilatation. -continue Lasix 40 mg b.i.d. -carvedilol 3.125 mg p.o. b.i.d. -Entresto 24- 1 tab p.o. b.i.d. -plan is to start Jardiance on discharge or after cardiology consult -ordered cardiology consult for further evaluation and care -continue telemetry #NSTEMI type 2 likely due to demand related ischemia -EKG sinus tachycardia, no acute ST change -troponin I 77>78>80 -pending cardiology consult -pending echo 2D report -pending echo 2D -continue aspirin 81 mg daily -continue atorvastatin 40 mg q.h.s. # Bilateral pleural effusion likely due to acute on chronic HFrEF, -On 06/11/2023 ECHO 2D revealed-Severely dilated left ventricle. Severely reduced left ventricular systolic function estimate ejection fraction of 10-15% There is a global left ventricular wall akinesia. Moderate left and right atrial dilatation. -continue Lasix 40 mg b.i.d. -carvedilol 3.125 mg p.o. b.i.d. --Entresto 1 tab p.o. b.i.d. # Bilateral leg edema likely due to acute on chronic HFrEF, -On 06/11/2023 ECHO 2D revealed-Severely dilated left ventricle. Severely reduced left ventricular systolic function estimate ejection fraction of 10-15% -continue Lasix 40 mg b.i.d. -carvedilol 3.125 mg p.o. b.i.d. --Entresto 1 tab p.o. b.i.d. # Dilated cardiomyopathy, maybe substance abuse like marijuana -patient with a history of substance abuse marijuana -continue Lasix 40 mg IV b.i.d. -sto 1 tab p.o. b.i.d. -carvedilol 3.125 mg p.o. b.i.d. -pending echo 2D -pending cardiology consult # left foot ulcer -ordered wound consult # hypertension --continue Lasix 40 mg b.i.d. -carvedilol 3.125 mg p.o. b.i.d. --carvedilol 3.125 mg p.o. b.i.d. --Entresto 1 tab p.o. b.i.d. # diabetes mellitus type 2 -pending HGB A1c -insulin sliding scale -monitor blood sugar # peripheral vascular disease --continue aspirin 81 mg daily -continue atorvastatin 40 mg q.h.s. # diabetic neuropathy -continue gabapentin 100 mg qhs # hyperlipidemia -continue atorvastatin 40 mg q.h.s. # history of polysubstance abuse, marijuana -patient was counseled about the effect of polysubstance abuse on health # CKD stage 3A -avoid dehydration and nephrotoxic drugs Goals of care/advance care planning; FULL CODE; discussed with the patient >15 minutes PUD prophylaxis: DVT prophylaxis: Lovenox PCP-Dr. Chuckie christian Personal Care Worker-Dr. Elbert Clarke MD Plan discussed with Dr. Cason, nursing staff, patient Total time spent on patient evaluation, chart review, assessment and plan, discussion discussion >30 minutes Plan discussed with: Patient Plan discussed with: Patient, Other (RN) Plan discussed with: Patient, Other (RN) My Orders Orders - TRUNG JACKSON Procedure Category Date Status Time Admit ADMIT 04/30/24 Transmitted 20:50 Code Status CODE 04/30/24 Transmitted 20:50 Renal DIET 05/01/24 Transmitted Standard(2gna,3gk,Lopho) Breakfast Sodium Chloride Lock PHA 04/30/24 Logged (Saline Lock Ns) 22:00 Docusate Sodium PHA 04/30/24 Logged Capsule (Colace 21:00 Complete Blood Count LAB 05/01/24 Verified 04:00 Comprehensive LAB 05/01/24 Verified Metabolic Panel 04:00 Cardiac DIET 05/01/24 Transmitted Diet-2gna,Lofat,Lochol Breakfast Echo 2d Mode Cardiac US 04/30/24 Logged DOP 20:50 Acetaminophen Tablet PHA 04/30/24 Logged (Tylenol Tablet) 21:00 Morphine Sulfate PHA 04/30/24 Logged Injection 21:00 Nitroglycerin PHA 04/30/24 Logged Sublingual (Ntrostat 21:00 Morphine Sulfate PHA 04/30/24 Logged Injection 21:00 Oxygen By Nasal RT 04/30/24 Transmitted Cannula 20:50 Stat Ekg For Chest ANICETO 04/30/24 In Process Pain 20:50 Notify Md Of Changes ANICETO 04/30/24 In Process From Base 20:50 Occup Ther For ANICETO 04/30/24 In Process 24 Hours 20:50 Emergency Dysrhythmia ANICETO 04/30/24 In Process Protocol 20:50 Rhythm Strips Once ANICETO 04/30/24 In Process Every Shift 20:50 * Cardiology Consult CONS 04/30/24 Transmitted 20:53 Furosemide Injection PHA 04/30/24 Verified (Lasix Injection) 21:00 Carvedilol Tablet PHA 04/30/24 Verified (Coreg Tablet) 21:00 Date of Service: Apr 30, 2024 Billing Provider: RICHIE CASON MD Common Visit Codes: 40151-[id number] INP/OBS CARE (HIGH) Secondary Visit Codes: 28928-[id number] CARE PLAN 30 MINUTES TRUNG JACKSON Apr 30, 2024 20:59 RICHIE CASON MD May 01, 2024 19:12
[2024-04-30] MEDS ORDERED: NITROGLYCERIN 0.4 MG SL TAB SL PRN (21:00)
[2024-04-30] MEDS ORDERED: MORPHINE SULFATE INJ 2 MG/ml SYRG IV PRN ×2 (21:00)
[2024-04-30] MEDS ORDERED: DOCUSATE SOD 100 MG CAP PO PRN (21:00)
[2024-04-30] MEDS ORDERED: ACETAMINOPHEN 325 MG TAB PO PRN (21:00)
[2024-04-30 21:47] LABS: Magnesium 1.9 mg/dL (1.6-2.6)
[2024-04-30] MEDS: SODIUM CHLOR 0.9% PF (SALINE LOCK) 10ML VIAL/SYR IV SCH (22:08)
[2024-04-30] MEDS: CARVEDILOL 3.125 MG TAB PO ONE (22:15)
[2024-04-30] MEDS: SACUBITRIL-VALSARTAN 24mg/26mg TAB PO SCH (22:16)
[2024-04-30] MEDS: ASPirin 81 mg TAB PO ONE (22:16)
[2024-04-30] MEDS: ATORVASTATIN 20 MG TAB PO ONE (22:16)
[2024-04-30] MEDS: SPIRONOLACTONE 25 MG TAB PO ONE (22:16)
[2024-04-30 22:17] LABS: Blood Alcohol < 3.0 mg/dL (<10)
[2024-04-30] MEDS: FUROSEMIDE 40 MG/4 ML VIAL IV ONE (22:17)
[2024-04-30] MEDS: GABAPENTIN 100 MG CAP PO ONE (22:22)
[2024-04-30 23:20] VITALS: BP 138/88; PULSE 90; RESP 20; TEMP 97.7; O2SAT 98
[2024-04-30 23:29] VITALS: PULSE 90; RESP 20; TEMP 97.7; O2SAT 98
[2024-05-01] VITALS (7 sets, daily range): BP systolic 105–132; BP diastolic 56–77; PULSE 68–99; RESP 18–20; TEMP 97.4–98.6; O2SAT 94–99
--- NOTE | 2024-05-01 01:21 | DVHINCON2 ---
Date of service: Apr 30, [address] Gil Reason for Consultation Elevated troponin History of Present Illness This is a 58 year old male with a PMH of CHF, DM, High Lipids, HTN who presented to the ED with complaints of SOB. Patient reports that he has been experiencing SOB with associated non-productive cough and bilateral extremity swelling for the past week. Patient was seen yesterday by [facility] and was recommended for admission, but he eloped due to the admitting doctor not putting in 80mg of Lasix which works for him instead of 40mg Lasix. Patient states he is unable to lay flat without discomfort. EKG is NSR. Chest x-ray shows right basilar atelectasis or pneumonia. BNP 1051. Troponin 73 > 77 > 80. ECHO 2D from 06/14/23 revealed- severely dilated left ventricle. Severely reduced left ventricular systolic function estimate ejection fraction of 10-15%. There is a global left ventricular wall akinesia. There is a grade 2 diastolic dysfunction. Moderate to severely dilated right ventricle. Severely reduced right ventricular systolic function. Mildly elevated right ventricular systolic pressure at 30 mmHg. Moderate left and right atrial dilatation. Patient was admitted to the hospital. I am asked to consult on this patient. Family History: FH: heart attack G8 MOTHER Prostate carcinoma G8 FATHER Allergies: Coded Allergies: NO KNOWN ALLERGIES (Unverified , 09/24/22) Home Meds Reported Medications Spironolactone (Aldactone) 50 Mg Tab, 1 TAB PO DAILY, #30 TAB 3 Refills 07/02/23 Carvedilol (Coreg) 3.125 Mg Tab, PO, TAB 06/28/22 Atorvastatin Calcium (Lipitor) 10 Mg Tab, PO, TAB 06/28/22 Gabapentin (Gabapentin) 300 Mg Cap, 300 MG PO DAILY for 30 Days, MG 09/02/21 Furosemide (Furosemide) 80 Mg Tab, 1 TAB PO BID, #180 TAB 3 Refills 09/02/21 Aspirin (Aspirin Low Dose) 81 Mg Tab, 1 TAB PO DAILY 04/30/21 Current Medications Current Medications Medications (Trade) Dose Ordered Sig/Conner Route PRN Reason Start Time Stop Time Status Last Admin Sodium Chloride (Saline Lock Ns) 10 ml Q8HR IV 04/30/24 22:00 04/30/24 22:08 Docusate Sodium (Colace Capsule) 100 mg BIDPRN PRN PO FOR CONSTIPATION 04/30/24 21:00 Acetaminophen (Tylenol Tablet) 650 mg Q6HP PRN PO PAIN SCALE 1-3 OR TEMP>100.4 04/30/24 21:00 Morphine Sulfate 2 mg Q4HPRN PRN IV SEVERE PAIN (7-10 PAIN SCALE) 04/30/24 21:00 Nitroglycerin (Ntrostat Sublingual) 0.4 mg Q5MINP PRN SL FOR CHEST PAIN 04/30/24 21:00 Morphine Sulfate 2 mg Q30M PRN IV FOR CHEST PAIN 04/30/24 21:00 Sacubitril/ Valsartan (Entresto 24-26 Mg tab) 1 tab BID PO 04/30/24 22:00 04/30/24 22:16 Review of Systems Constitutional: denies: chills, diaphoresis, fatigue, fever, malaise, sweats, weakness, others EENTM: denies: blurred vision, double vision, ear bleeding, ear discharge, ear drainage, ear pain, ear ringing, eye pain, eye redness, hearing loss, mouth pain, mouth swelling, nasal discharge, nose bleeding, nose congestion, nose pain, photophobia, tearing, throat pain, throat swelling, voice changes, others Respiratory: reports: cough, shortness of breath; denies: hemoptysis, orthopnea, SOB at rest, SOB with excertion, stridor, wheezing, others Cardiovascular: reports: edema; denies: chest pain, dizzy spells, diaphoresis, Dyspnea on exertion, irregular heart beat, left arm pain, lightheadedness, palpitations, PND, syncope, others Gastrointestinal: denies: abdomen distended, abdominal pain, blood streaked bowels, constipated, diarrhea, dysphagia, difficulty swallowing, hematemesis, melena, nausea, poor appetite, poor fluid intake, rectal bleeding, rectal pain, vomiting, others Genitourinary: denies: burning, dysuria, flank pain, frequency, hematuria, incontinence, penile discharge, penile sore, pain, testicle pain, testicle swelling, urgency, others Neurological: denies: dizziness, fainting, headache, left sided numbness, left sided weakness, numbness, paresthesia, pre-existing deficit, right sided numbness, right sided weakness, seizure, speech problems, tingling, tremors, weakness, others Musculoskeletal: denies: back pain, gout, joint pain, joint swelling, muscle pain, muscle stiffness, neck pain, others Integumetry: denies: bruises, change in color, change in hair/nails, dryness, laceration, lesions, lumps, rash, wounds, others Allergic/Immunocompromised: denies: Difficulty Healing, Frequent Infections, Hives, Itching, others Hematologic/Lymphatic: denies: anemia, blood clots, easy bleeding, easy bruising, swollen glands, others Endocrine: denies: excessive hunger, excessive sweating, excessive thirst, excessive urination, flushing, intolerance to cold, intolerance to heat, unexplained weight gain, unexplained weight loss, others Psychiatric: denies: anxiety, bipolar disorder, depression, hopeless, panic disorder, schizophrenia, sleepless, suicidal, others All Other Systems: Reviewed and Negative Vital Signs Vital Signs Date Time Temp Pulse Resp B/P (MAP) Pulse Ox O2 Delivery O2 Flow Rate FiO2 05/01/24 00:55 98.1 85 20 132/75 (94) 96 98.1 04/30/24 23:29 Room Air* 0 21 Physical Exam GENERAL: Awake, alert, oriented. LUNGS: Diminished breath sound at the lung base. CARDIOVASCULAR: Heart sounds are good. ABDOMEN: Soft. Labs/Diagnostic Data Labs Test 04/30/24 20:20 04/30/24 19:51 04/30/24 17:09 04/30/24 16:53 Range/Units Urine Color Yellow Yellow Urine Clarity Turbid H Clear Urine pH 5.5 5.0-9.0 Urine Specific [place] 1.031 1.001-1.035 Urine Protein 2+ H Negative Urine Ketones Negative Negative Urine Blood 1+ H Negative /uL Urine Nitrite Negative Negative Urine Bilirubin Negative Negative Urine Urobilinogen 4 H Negative mg/dL Urine Leukocyte Esterase Negative Negative /uL Urine RBC 4 0 - 3 /hpf Urine WBC 3 0 - 3 /hpf Urine Squamous Epithelial Cells Few <5 /hpf Urine Calcium Oxalate Crystals Many None Seen Urine Bacteria None seen None Seen /hpf Urine Mucus Few None Seen Urine Glucose 1+ H Normal mg/dL Magnesium Level 1.9 1.6-2.6 mg/dL Troponin I High Sensitivity 80 *H </=54 ng/L Plasma/Serum Blood Alcohol < 3.0 <10 mg/dL White Blood Count 7.2 4.4-10.8 10^3/uL Red Blood Count 4.58 4.5-5.90 10^6/uL Hemoglobin 15.4 13.5-17.5 g/dL Hematocrit 45.6 41.0-53.0 % Mean Corpuscular Volume 99.6 80.0-100.0 fL Mean Corpuscular Hemoglobin 33.6 H 28.0-32.0 pg Mean Corpuscular Hemoglobin Concent 33.7 32.0-36.0 g/dL Red Cell Distribution Width 13.6 11.8-14.3 % Platelet Count 178 140-450 10^3/uL Mean Platelet Volume 8.8 6.9-10.8 fL Neutrophils (%) (Auto) 71.3 37.0-80.0 % Lymphocytes (%) (Auto) 14.0 10.0-50.0 % Monocytes (%) (Auto) 9.8 0.0-12.0 % Eosinophils (%) (Auto) 4.2 0.0-7.0 % Basophils (%) (Auto) 0.7 0.0-2.0 % Neutrophils # (Auto) 5.2 1.6-8.6 10 ^3/uL Lymphocytes # (Auto) 1.0 0.4-5.4 10 ^3/uL Monocytes # (Auto) 0.7 0-1.3 10 ^3/uL Eosinophils # (Auto) 0.3 0-0.8 10 ^3/uL Basophils # (Auto) 0.1 0-0.2 10 ^3/uL Nucleated Red Blood Cells 0.1 % Sodium Level 142 136-145 mmol/L Potassium Level 4.5 3.5-5.1 mmol/L Chloride Level 106 98-107 mmol/L Carbon Dioxide Level 31 20-31 mmol/L Anion Gap 5 5-15 Blood Urea Nitrogen 19 9-23 mg/dL Creatinine 1.43 H 0.700-1.30 mg/dL Glomerular Filtration Rate Calc 56 >90 mL/min BUN/Creatinine Ratio 13.3 10.0-20.0 Serum Glucose 178 H 74-106 mg/dL Calcium Level 10.0 8.7-10.4 mg/dL B-Type Natriuretic Peptide 1051.47 0-100 pg/mL POC Glucose 175 H 70-106 mg/dl Assessment Acute hypoxic respiratory failure. Acute on chronic HFrEF. Acute shortness of breath. NSTEMI type 2 likely due to demand related ischemia. Bilateral pleural effusion. Bilateral leg edema. Dilated cardiomyopathy. Left foot ulcer. Hypertension. Diabetes mellitus type 2. Peripheral vascular disease Diabetic neuropathy. Hyperlipidemia. History of polysubstance abuse, marijuana. CKD stage 3A Plan/Recommendation I agree with your ongoing assessment and care of plan. Echocardiogram. Morphine for pain management. Entresto. Aspirin, Lipitor. Additional plan as per the hospital course. A total of 45 minutes was spent reviewing the patient record, examining the patient, making a diagnostic and therapeutic plan, discussing this plan with medical personnel, following up on diagnostic studies and following the patient for clinical stability excluding any and all procedures. At least 50% of this time was spent in direct, [id number] contact. Plan discussed with: Patient DESHAUN PETERSON MD May 01, 2024 01:21
[2024-05-01 06:33] LABS: Basophils # (auto) 0.1 10 ^3/uL (0-0.2); Eosinophils # (auto) 0.5 10 ^3/uL (0-0.8); Hemoglobin 15.2 g/dL (13.5-17.5); Mean Corpuscular Hgb Conc. 34.1 g/dL (32.0-36.0); Nucleated Red Blood Cells % 0.2 %; Red Cell Distribution Width 13.6 % (11.8-14.3); White Blood Cell 6.6 10^3/uL (4.4-10.8)
[2024-05-01 06:36] LABS: Eosinophils % (auto) 7.5 % (0.0-7.0); Hematocrit 44.5 % (41.0-53.0); Lymphocytes % (auto) 14.8 % (10.0-50.0); Mean Corpuscular Hemoglobin 34.2 pg (28.0-32.0); Mean Corpuscular Volume 100.1 fL (80.0-100.0); Monocytes # (auto) 0.8 10 ^3/uL (0-1.3); Monocytes % (auto) 11.4 % (0.0-12.0); Neutrophils # (auto) 4.3 10 ^3/uL (1.6-8.6); Neutrophils % (auto) 65.3 % (37.0-80.0); Platelet Count (auto) 167 10^3/uL (140-450); Red Blood Cells 4.44 10^6/uL (4.5-5.90)
[2024-05-01 06:52] LABS: Alanine Aminotransferase 13 U/L (7-40); Alkaline Phosphatase 114 U/L (46-116); Anion Gap 7 (5-15); BUN/Creatinine Ratio 11.3 (10.0-20.0); Blood Urea Nitrogen 14 mg/dL (9-23); Calcium 9.3 mg/dL (8.7-10.4); Carbon Dioxide 29 mmol/L (20-31); Chloride 105 mmol/L (98-107); Glucose 188 mg/dL (74-106); Magnesium 1.8 mg/dL (1.6-2.6); Potassium 3.4 mmol/L (3.5-5.1); Sodium 141 mmol/L (136-145)
[2024-05-01 06:53] LABS: Albumin 3.6 g/dL (3.2-4.8); Aspartate Aminotransferase 17 U/L (13-40); Bilirubin, Total 0.7 mg/dL (0.2-1.0); Total Protein 6.4 g/dL (5.7-8.2)
[2024-05-01] MEDS: GABAPENTIN 300 MG CAP PO SCH (10:00)
[2024-05-01] MEDS: FUROSEMIDE 40 MG/4 ML VIAL IV SCH (10:00)
[2024-05-01] MEDS: ASPirin 81 mg TAB PO SCH (10:00)
[2024-05-01] MEDS ORDERED: SPIRONOLACTONE 25 MG TAB PO SCH (10:00)
[2024-05-01] MEDS: SPIRONOLACTONE 25 MG TAB PO SCH (10:00)
--- NOTE | 2024-05-01 11:09 | DVHPNRES ---
Progress Note Date Seen: May 01, 2024 Resident Creating Document: MINISTERIO NAILS RESIDENT Medical Necessity Reason Pt with a Central, PICC or Fol: No Subjective Review of Systems This is a 58 years old male with a pmhx HFrEF, LVEF 10-15%, hypertension, diabetic neuropathy, hyperlipidemia, PVD, CKD stage IIIA, polysubstance abuse who presented to the ED with a chief complaints of short of breath for last 8 days. As per patient patient has been having short of breath for last 8 days associated with orthopnea and PND. Patient also endorsed bilateral leg swelling for the same duration. Patient also complained of some cough with whitish phlegm. Patient unable to complete a sentence due to shortness of breath during conversation. Patient reported having diarrhea 5 days before but it resolved and no more. Patient denied any chest pain, palpitation, fever, constipation, acute joint swelling, rash, dysarthria or change in vision or hearing problem. Patient was at the [facility] ER 2 night ago then eloped early in the morning. EKG shows sinus tachycardia, lab revealed creatinine 1.43, GFR 56, glucose 178 with A1c 6.8, troponin I: 73> 77> 80, BNP 1051.47, potassium 4.5. His recent echo was which revealed severely dilated left ventricle with EF 10-15% There is a global left ventricular wall akinesia. Past Medical History: HFrEF (10-15%), hypertension, diabetic neuropathy, hyperlipidemia, PVD, CKD stage IIIA, polysubstance abuse Past Surgical History: none Family History: DAD-Cancer, mom healthy Social History-->-lives in his car, smoker 23.5 pack year, alcoholic and methamphetamine abuse Review of Systems General: No fever, chills or malaise Cardiovascular- deny acute chest pain or palpitation Respiratory- Shortness of breath, mild cough Gastrointestinal- denies vomiting,diarrhear,rectal bleeding, nausea or vomiting Musculoskeletal-denies acute joint swelling or tenderness or redness Neurological- denies acute dysarthria, dysphagia, change in vision Psychiatry- denies depression or SI or HI Skin- denies acute rash or purpura Allergy- NKDA Objective vital signs Vital Sign Date Time Temp Pulse Resp B/P (MAP) Pulse Ox O2 Delivery O2 Flow Rate FiO2 05/01/24 09:00 98.0 72 20 120/75 (90) 94 98.0 04/30/24 23:29 Room Air* 0 21 Total Intake and Output 04/30/24 04/30/24 05/01/24 15:00 23:00 07:00 Intake Total 210 ml Balance 210 ml medications Current Medications Medications Dose Ordered Sig/Conner Route Start Time Stop Time Status Last Admin Dose Admin Sodium Chloride 10 ml Q8HR IV 04/30/24 22:00 05/01/24 05:52 10 ML Docusate Sodium 100 mg BIDPRN PRN PO 04/30/24 21:00 Acetaminophen 650 mg Q6HP PRN PO 04/30/24 21:00 Morphine Sulfate 2 mg Q4HPRN PRN IV 04/30/24 21:00 Nitroglycerin 0.4 mg Q5MINP PRN SL 04/30/24 21:00 Morphine Sulfate 2 mg Q30M PRN IV 04/30/24 21:00 Furosemide 40 mg BIDD IV 05/01/24 10:00 Gabapentin 300 mg DAILY PO 05/01/24 10:00 Spironolactone 50 mg DAILY PO 05/01/24 10:00 Atorvastatin Calcium 40 mg HS PO 05/01/24 22:00 Aspirin 81 mg DAILY PO 05/01/24 10:00 Examination General examination- awake, alert, oriented, conversant HEENT- PEERLA, no acute nasal discharge Cardiovascular- S1-S2 audible, rate and rhythm regular, no murmur ? S3 Respiratory- Mild crackles+, diminished breath sound at the lung base Gastrointestinal-nontender, bowel sound+. Nondistended Musculoskeletal-no acute joint swelling or tenderness or redness# Lower extremity- bilateral leg dry, resolved vinayak, left foot ulcer just above the left malleolus Neurological- cranial nerves intact, no acute dysarthria or dysphagia Psychiatry- denies depression or SI or HI Skin- lusterless skin laboratory and microbiology Laboratory Tests 05/01/24 05:36 Test 05/01/24 05:36 Range/Units Serum Glucose 188 H 74-106 mg/dL Problem List/Assessment/Plan Problem List/Assessment/Plan Acute on chronic HFrEF Most recent Echo: 10-15%, repeat echo Lasix IV 40mg BID --> Measure amount of urine produce. If less than 100ml/hr, will need to do lasix challenge Spironlactone # Acute hypoxic respiratory failure due to acute on chronic HFrEF: improved --> talking now --> No dyspneic --> on room air NSTEMI type 2 likely due to demand related ischemia. elevated troponin Control bp, chf Dilated cardiomyopathy Left foot ulcer. Hypertension --> Diabetes mellitus type 2 -->Mild sliding scales -->ACC checks Diabetic neuropathy --> Gabepentin Hyperlipidemia. --> Aspirin, Lipitor History of polysubstance abuse, marijuana. --> UDS pending CKD stage 3A --> Monitor creatintine Code status: Full Care discussed for more than 30 minute Case and plan discussed with Dr. Chinchilla Plan discussed with: Patient My Orders My Orders Orders - MINISTERIO NAILS Procedure Category Date Status Time Drug Screen LAB 05/01/24 Logged 10:20 Date of Service: May 01, 2024 Billing Provider: URSZULA ARGUETA MD Common Visit Codes: [id number] INP/OBS CARE(HIGH) MINISTERIO NAILS May 01, 2024 11:09 URSZULA ARGUETA MD May 02, 2024 09:10
--- NOTE | 2024-05-01 12:20 | ECG ---
[facility] Test Date: 2024-04-30 Test Time: 17:06:05 Pat Name: TANVI HU Department: er Room: [facility]0T B Gender: M Hog Killer: pari : 1965 Requested By: KIA STEPHENSON Order Number: [id number] Reading MD: Bayron Paul Measurements Intervals [place] Rate: 104 P: 75 MI: 165 QRS: -25 QRSD: 105 T: 77 QT: 376 QTc: 495 Interpretive Statements Sinus tachycardia Probable left atrial enlargement Borderline left axis deviation Abnormal R-wave progression, late transition Borderline prolonged QT interval Baseline wander in lead(s) V2,V3 Electronically Signed On 05-02-2024 17:37:43 PST by Bayron Paul Please click the below link to view image of tracing.
--- NOTE | 2024-05-01 15:31 | DVHPN2 ---
Progress Note - Dictate Date Seen: May 01, 2024 Medical Necessity Reason Pt with a Central, PICC or Fol: No Subjective Patient was seen and evaluated in follow up. Patient is complaining of BLE swelling. Patient's SOB is improving. Patient is now on room air. K 3.4, HGB A1C 6.8. vital signs Vital Sign Date Time Temp Pulse Resp B/P (MAP) Pulse Ox O2 Delivery O2 Flow Rate FiO2 05/01/24 09:00 98.0 72 20 120/75 (90) 94 98.0 04/30/24 23:29 Room Air* 0 21 Total Intake and Output 04/30/24 04/30/24 05/01/24 15:00 23:00 07:00 Intake Total 210 ml Balance 210 ml medications Current Medications Medications Dose Ordered Sig/Conner Route Start Time Stop Time Status Last Admin Dose Admin Sodium Chloride 10 ml Q8HR IV 04/30/24 22:00 05/01/24 05:52 10 ML Docusate Sodium 100 mg BIDPRN PRN PO 04/30/24 21:00 Acetaminophen 650 mg Q6HP PRN PO 04/30/24 21:00 Morphine Sulfate 2 mg Q4HPRN PRN IV 04/30/24 21:00 Nitroglycerin 0.4 mg Q5MINP PRN SL 04/30/24 21:00 Morphine Sulfate 2 mg Q30M PRN IV 04/30/24 21:00 Furosemide 40 mg BIDD IV 05/01/24 10:00 Gabapentin 300 mg DAILY PO 05/01/24 10:00 Spironolactone 50 mg DAILY PO 05/01/24 10:00 Atorvastatin Calcium 40 mg HS PO 05/01/24 22:00 Aspirin 81 mg DAILY PO 05/01/24 10:00 objective GENERAL: Awake, alert, oriented. LUNGS: Diminished breath sound at the lung base. CARDIOVASCULAR: Heart sounds are good. ABDOMEN: Soft. laboratory and microbiology Laboratory Tests 05/01/24 05:36 Test 05/01/24 05:36 Range/Units Serum Glucose 188 H 74-106 mg/dL Problem List Acute hypoxic respiratory failure. Acute on chronic HFrEF. Acute shortness of breath. NSTEMI type 2 likely due to demand related ischemia. Bilateral pleural effusion. Bilateral leg edema. Dilated cardiomyopathy. Left foot ulcer. Hypertension. Diabetes mellitus type 2. Peripheral vascular disease Diabetic neuropathy. Hyperlipidemia. History of polysubstance abuse, marijuana. CKD stage 3A. Assessment/Plan Continued all current supportive medical care. Echocardiogram. Morphine for pain management. Entresto. Aspirin, Lipitor. Additional plan as per the hospital course. Plan discussed with: Patient DESHAUN PETERSON MD May 01, 2024 11:28
[2024-05-01] MEDS ORDERED: DEXTROSE (50%) 50ML SYRG IV PRN (20:15)
[2024-05-01 20:45] LABS: Sodium Urine 140 mmol/L (40-220)
[2024-05-01 20:50] LABS: Protein, Urine < 6.0 mg/dL (1-14)
[2024-05-01 20:52] LABS: Amphetamine Screen, Urine Pos (NEGATIVE); Barbiturate Scree,Urine Neg (NEGATIVE); Benzodiazephine Screen, Urine Neg (NEGATIVE); Cannabinoid Screen, Urine Neg (NEGATIVE); Cocaine Screen, Urine Neg (NEGATIVE); Creatinine, Urine 26.02 mg/dL (30.0-125.0); Opiate Scree,Urine Neg (NEGATIVE); Phencyclidine Screen, Urine Neg (NEGATIVE); Urine Protein/Creatinine Ratio 0.23
[2024-05-01] MEDS: ATORVASTATIN 20 MG TAB PO SCH (22:00)
[2024-05-01] MEDS: InsuLIN REG 1unit/0.01ml Soln (100units/ml) SC SCH (22:00)
[2024-05-01] MEDS: ACCU-CHEK COMFORT CURVE STRIP VI SCH (22:00)
[2024-05-02] VITALS (9 sets, daily range): BP systolic 122–134; BP diastolic 68–81; PULSE 74–91; RESP 13–20; TEMP 97.5–98.6; O2SAT 84–95
[2024-05-02 10:27] LABS: Chloride 100 mmol/L (98-107); Potassium 3.3 mmol/L (3.5-5.1); Sodium 139 mmol/L (136-145)
[2024-05-02 10:28] LABS: Anion Gap 4 (5-15); Calcium 9.4 mg/dL (8.7-10.4); Carbon Dioxide 35 mmol/L (20-31)
[2024-05-02 10:33] LABS: BUN/Creatinine Ratio 11.3 (10.0-20.0); Blood Urea Nitrogen 16 mg/dL (9-23); Glucose 212 mg/dL (74-106); Magnesium 1.8 mg/dL (1.6-2.6)
[2024-05-02] MEDS ORDERED: IPRATROPIUM BROM 0.5 MG/2.5ML INH SOL NEB PRN (15:00)
[2024-05-02] MEDS ORDERED: ALBUTEROL SULF 2.5 MG/0.5ML(0.5%) NEB SOLN NEB PRN (15:00)
[2024-05-02] MEDS: POTASSIUM CHL 20 Meq TABLET PO ONE (16:53)
[2024-05-02] MEDS: cefTRIAXone 1GM/50ML D5W 50 ML IV ONE (16:54)
[2024-05-02] MEDS: MAGNESIUM SULFATE 1GM/100ML 100 ML IV ONE (17:08)
[2024-05-02] MEDS: AZITHROMYCIN 500MG/ 250ML 250 ML IV ONE (17:08)
--- NOTE | 2024-05-02 18:16 | DVHPNRES ---
Progress Note Date Seen: May 02, 2024 Resident Creating Document: MINISTERIO NAILS RESIDENT Medical Necessity Reason Pt with a Central, PICC or Fol: No Subjective Review of Systems Patient is seen and examined today. He seems to be in mild form of respiratory distress. Patient was coughing a lot and on examination he needed to have significant amount of wheezing which is different from yesterday. Of note, patient also refused almost all of his medications and diet and wanted to leave without signing AMA. However, he has changed his mind and he decided to stay in the hospital to get the treatment he needed for his CHF and also possibly viral pneumonia versus COPD exacerbation.He denies any chest pain, palpitation, nausea or vomiting. Constitutional: Denies fever no chills; feeling of malaise HEENT: Denies headache, ear pain, ear discharges, conjunctivitis, nasal discharge throat pain Cardiovascular: Denies chest pain, palpitation, orthopnea, PND, or pedal edema Respiratory: Mild shortness of breath, cough, sputum production, no hemoptysis, GI: Denies abdominal pain, nausea, vomiting, diarrhea, hematemesis, hematochezia, : Denies frequency, urgency, hematuria, Endocrine: Denies unintentional weight gain or weight loss, feeling of hot flashes, Wyatt: Denies easy bruising, bleeding disorders, epistaxis Musculoskeletal: Denies joint pains, muscle aches Psych: No evidence of depression, charo, suicidal ideation Objective vital signs Vital Sign Date Time Temp Pulse Resp B/P (MAP) Pulse Ox O2 Delivery O2 Flow Rate FiO2 05/02/24 16:53 134/73 05/02/24 16:44 98.2 80 14 93 98.2 05/02/24 08:00 Room Air* 0 21 Total Intake and Output 05/01/24 05/01/24 05/02/24 15:00 23:00 07:00 Intake Total 1570 ml 1200 ml Output Total 800 ml 800 ml Balance 770 ml 400 ml medications Current Medications Medications Dose Ordered Sig/Conner Route Start Time Stop Time Status Last Admin Dose Admin Sodium Chloride 10 ml Q8HR IV 04/30/24 22:00 05/02/24 14:00 10 ML Docusate Sodium 100 mg BIDPRN PRN PO 04/30/24 21:00 Acetaminophen 650 mg Q6HP PRN PO 04/30/24 21:00 Morphine Sulfate 2 mg Q4HPRN PRN IV 04/30/24 21:00 Nitroglycerin 0.4 mg Q5MINP PRN SL 04/30/24 21:00 Morphine Sulfate 2 mg Q30M PRN IV 04/30/24 21:00 Furosemide 40 mg BIDD IV 05/01/24 10:00 05/02/24 16:53 40 MG Spironolactone 50 mg DAILY PO 05/01/24 10:00 05/02/24 10:09 50 MG Atorvastatin Calcium 40 mg HS PO 05/01/24 22:00 Aspirin 81 mg DAILY PO 05/01/24 10:00 05/02/24 10:10 81 MG Diagnostic Test (Pha) 1 strip ACHS 05/01/24 22:00 05/02/24 16:54 1 STRIP Insulin Human Regular ACHS SC 05/01/24 22:00 05/02/24 11:46 3 UNITS Dextrose 50 ml UD PRN IV 05/01/24 20:15 Ceftriaxone Sodium 50 ml @ 100 mls/hr DAILY@09 IV 05/03/24 09:00 Azithromycin 250 ml @ 125 mls/hr DAILY IV 05/03/24 10:00 Albuterol 2.5 mg Q6HPRN PRN NEB 05/02/24 15:00 Ipratropium Waucoma 0.5 mg Q6HPRN PRN NEB 05/02/24 15:00 Carvedilol 6.25 mg Q12HR PO 05/02/24 22:00 Gabapentin 300 mg DAILY PO 05/03/24 17:00 Examination General examination- Mild acute distress HEENT: PEERLA, no acute nasal discharge Chest: S1-S2 audible, rate and rhythm regular, no murmur Lung: Significant wheezing bilateral Abdomen: Nondistend, BS+, nontenderness, no organomegaly Musculoskeletal: no acute joint swelling or tenderness Lower extremity: no leg edema Neurological: cranial nerves intact, no acute dysarthria or dysphagia Psychiatry-- Normal mood and affect Skin- no acute rash or purpura laboratory and microbiology Laboratory Tests 05/02/24 09:39 05/01/24 05:36 Test 05/02/24 09:39 Range/Units Serum Glucose 212 H 74-106 mg/dL Problem List/Assessment/Plan Problem List/Assessment/Plan Acute on chronic HFrEF Most recent Echo: 10-15%, repeat echo Lasix IV 40mg BID --> Measure amount of urine produce. If less than 100ml/hr, will need to do lasix challenge Spironlactone -->Cardiology follow --> Entresto: on hold due to low K # Acute hypoxic respiratory failure due to acute on chronic HFrEF: improved --> talking now --> No dyspneic --> on room air #COPD vs Viral pneumonia --> Ceftriaxone --> Azithromycin --> Duoneb NSTEMI type 2 likely due to demand related ischemia. elevated troponin Control bp, chf Dilated cardiomyopathy Left foot ulcer. Hypertension Diabetes mellitus type 2 -->Mild sliding scales -->ACC checks Diabetic neuropathy --> Gabepentin Hyperlipidemia. --> Aspirin, Lipitor History of polysubstance abuse, marijuana. --> UDS pending CKD stage 3A --> Monitor creatintine Code status: Full Care discussed for more than 30 minute Case and plan discussed with Dr. Chinchilla Plan discussed with: Patient My Orders My Orders Orders - MINISTERIO NAILS Procedure Category Date Status Time Rapid Influenza A&B LAB 05/02/24 Logged 14:51 Covid19 Antigen [place] LAB 05/02/24 Logged Ceftriaxone 1gm/50ml PHA 05/03/24 In Process D5w (Rocephin) 09:00 Azithromycin 500mg/ PHA 05/03/24 In Process 250ml (Zithromax 50 10:00 Albuterol Medneb PHA 05/02/24 In Process (Ventolin Medneb) 15:00 Ipratropium Medneb PHA 05/02/24 In Process (Atrovent Medneb) 15:00 Carvedilol Tablet PHA 05/02/24 In Process (Coreg Tablet) 22:00 Respiratory Culture MARY 05/02/24 Uncollected W/ Gs 15:08 Date of Service: May 02, 2024 Billing Provider: URSZULA ARGUETA MD Common Visit Codes: [id number] INP/OBS CARE(HIGH) MINISTERIO NAILS May 02, 2024 18:16 URSZULA ARGUETA MD May 04, 2024 09:17
[2024-05-02] MEDS: CARVEDILOL 3.125 MG TAB PO SCH (22:17)
--- NOTE | 2024-05-02 22:51 | DVHPN2 ---
Progress Note - Dictate Date Seen: May 02, 2024 Medical Necessity Reason Pt with a Central, PICC or Fol: No Subjective Patient was seen and evaluated in follow up. Patient is complaining of BLE pain and swelling. Per nursing staff, the patient has been agitated with care. K 3.3, CO2 35, DRAFTER HEATING AND VENTILATING 1.42, GLUC 212. UDS is positive for amphetamines. vital signs Vital Sign Date Time Temp Pulse Resp B/P (MAP) Pulse Ox O2 Delivery O2 Flow Rate FiO2 05/02/24 09:00 98.6 77 20 127/76 (93) 94 98.6 05/02/24 08:00 Room Air* 0 21 Total Intake and Output 05/01/24 05/01/24 05/02/24 15:00 23:00 07:00 Intake Total 1570 ml 1200 ml Output Total 800 ml 800 ml Balance 770 ml 400 ml medications Current Medications Medications Dose Ordered Sig/Conner Route Start Time Stop Time Status Last Admin Dose Admin Sodium Chloride 10 ml Q8HR IV 04/30/24 22:00 05/02/24 05:46 10 ML Docusate Sodium 100 mg BIDPRN PRN PO 04/30/24 21:00 Acetaminophen 650 mg Q6HP PRN PO 04/30/24 21:00 Morphine Sulfate 2 mg Q4HPRN PRN IV 04/30/24 21:00 Nitroglycerin 0.4 mg Q5MINP PRN SL 04/30/24 21:00 Morphine Sulfate 2 mg Q30M PRN IV 04/30/24 21:00 Furosemide 40 mg BIDD IV 05/01/24 10:00 05/02/24 05:44 40 MG Gabapentin 300 mg DAILY PO 05/01/24 10:00 Spironolactone 50 mg DAILY PO 05/01/24 10:00 05/02/24 10:09 50 MG Atorvastatin Calcium 40 mg HS PO 05/01/24 22:00 Aspirin 81 mg DAILY PO 05/01/24 10:00 05/02/24 10:10 81 MG Diagnostic Test (Pha) 1 strip ACHS 05/01/24 22:00 Insulin Human Regular ACHS SC 05/01/24 22:00 Dextrose 50 ml UD PRN IV 05/01/24 20:15 objective GENERAL: Awake, alert, oriented. LUNGS: Diminished breath sound at the lung base. CARDIOVASCULAR: Heart sounds are good. ABDOMEN: Soft. laboratory and microbiology Laboratory Tests 05/02/24 09:39 05/01/24 05:36 Test 05/02/24 09:39 Range/Units Serum Glucose 212 H 74-106 mg/dL Problem List Acute hypoxic respiratory failure. Acute on chronic HFrEF. Acute shortness of breath. NSTEMI type 2 likely due to demand related ischemia. Bilateral pleural effusion. Bilateral leg edema. Dilated cardiomyopathy. Left foot ulcer. Hypertension. Diabetes mellitus type 2. Peripheral vascular disease Diabetic neuropathy. Hyperlipidemia. History of polysubstance abuse, marijuana. CKD stage 3A. Assessment/Plan Continued all current supportive medical care. Echocardiogram. Morphine for pain management. Entresto. Aspirin, Lipitor. Additional plan as per the hospital course. Plan discussed with: Patient DESHAUN PETERSON MD May 02, 2024 11:29
[2024-05-03] VITALS (9 sets, daily range): BP systolic 120–143; BP diastolic 75–87; PULSE 59–81; RESP 15–20; TEMP 36.9; O2SAT 94–98
--- NOTE | 2024-05-03 02:20 | DVHSR ---
APPROVED REPORT EXAM: Two-dimensional and M-mode echocardiogram with Doppler and color Doppler. Blood Pressure: 105/56 mmHg INDICATION Dyspnea RISK FACTORS Height: 5'10", Weight: 188 DIMENSIONS LVDd5.7 (3.8-5.7cm)LA (2D)3.8 (1.9-4.0cm)Aortic Root3.6 (2.0-3.7cm) LVDs5.5 (2.5-4.0cm)LA (MM) (1.9-4.0cm)Aortic Cusp Exc1.7 (1.5-2.0cm) EF (%) 10.0 (55-70%)Rt. Atrium4.6 (1.9-4.0cm)Asc. Aorta3.8 cm IVSd1.1 (0.7-1.1cm)RV (D) (1.8-2.4cm) PWd0.9 (0.7-1.1cm) Mitral Valve MitralMitral Stenosis E wave0.75m/sMV Mean GR.mmHg A wave0.82m/sMV Peak GR.mmHg E/A ratio0.92D MVAcm2 DECEL [id number] 1/2 [place] Aortic Valve Aortic ValveAortic Stenosis V10.69m/Jeromy Mean GR.4mmHg V21.27m/Jeromy Peak GR.6mmHg LVOT Diameter2.3 (1.8-2.4cm)Doppler AVA2.26cm2 AI P 1/2 [id number] Pulmonic Valve V20.70m/s Tricuspid Valve TR Velocity2.37m/s [id number] Conclusion END STAGE DILATED CARDIOMYOPATHY ALL CARDIAC CHAMBERS ARE DILATED AND ARE HYPOKINETIC LV EJECTION FRACTION IS ONLY 10% NORMAL VALVES NO EFFUSION
[2024-05-03] MEDS: cefTRIAXone 1GM/50ML D5W 50 ML IV SCH (09:00)
[2024-05-03 09:27] LABS: Chloride 102 mmol/L (98-107); Potassium 4.3 mmol/L (3.5-5.1); Sodium 138 mmol/L (136-145)
[2024-05-03 09:28] LABS: Anion Gap 3 (5-15); Carbon Dioxide 33 mmol/L (20-31)
[2024-05-03 09:29] LABS: Calcium 9.4 mg/dL (8.7-10.4)
[2024-05-03 09:33] LABS: Glucose 215 mg/dL (74-106)
[2024-05-03 09:34] LABS: BUN/Creatinine Ratio 10.5 (10.0-20.0); Blood Urea Nitrogen 16 mg/dL (9-23)
[2024-05-03] MEDS: AZITHROMYCIN 500MG/ 250ML 250 ML IV SCH (10:00)
[2024-05-03] MEDS: GABAPENTIN 300 MG CAP PO SCH (16:58)
[2024-05-03] MEDS ORDERED: GABA-1250 PO ×2 (17:11→17:36)
[2024-05-03] MEDS ORDERED: CARV-214 PO (17:11)
[2024-05-03] MEDS ORDERED: ASPI-325 PO ×2 (17:11→17:36)
[2024-05-03] MEDS ORDERED: FURO1TAB33 PO (17:11)
[2024-05-03] MEDS ORDERED: SPIR25TA PO (17:11)
[2024-05-03] MEDS ORDERED: LEVO750T40 PO (17:11)
[2024-05-03] MEDS ORDERED: ATOR20TA50 PO (17:11)
[2024-05-03] MEDS ORDERED: SPIR50TA5 PO (17:36)
[2024-05-03] MEDS ORDERED: ATOR40TA52 PO (17:36)
[2024-05-03] MEDS ORDERED: CARV6.2551 PO (17:36)
[2024-05-03] MEDS ORDERED: FURO1TAB77 PO (17:36)
--- NOTE | 2024-05-03 21:28 | DVHPN2 ---
Progress Note - Dictate Date Seen: May 03, 2024 Medical Necessity Reason Pt with a Central, PICC or Fol: No Subjective Patient was seen and evaluated in follow up. Patient has no new complaints at this time. Echocardiogram shows an EF of only 10%. Patient denies any cardiac symptoms. Patient is cardiac stable for discharge. vital signs Vital Sign Date Time Temp Pulse Resp B/P (MAP) Pulse Ox O2 Delivery O2 Flow Rate FiO2 05/03/24 12:15 98.6 59 20 123/82 (96) 94 98.6 05/03/24 09:41 Room Air 0.0 05/03/24 09:41 21 Total Intake and Output 05/02/24 05/02/24 05/03/24 15:00 23:00 07:00 Intake Total 1650 ml 550 ml Output Total 1800 ml 1300 ml Balance -150 ml -750 ml medications Current Medications Medications Dose Ordered Sig/Conner Route Start Time Stop Time Status Last Admin Dose Admin Sodium Chloride 10 ml Q8HR IV 04/30/24 22:00 05/03/24 13:21 10 ML Docusate Sodium 100 mg BIDPRN PRN PO 04/30/24 21:00 Acetaminophen 650 mg Q6HP PRN PO 04/30/24 21:00 Morphine Sulfate 2 mg Q4HPRN PRN IV 04/30/24 21:00 Nitroglycerin 0.4 mg Q5MINP PRN SL 04/30/24 21:00 Morphine Sulfate 2 mg Q30M PRN IV 04/30/24 21:00 Furosemide 40 mg BIDD IV 05/01/24 10:00 05/02/24 16:53 40 MG Spironolactone 50 mg DAILY PO 05/01/24 10:00 05/03/24 10:16 50 MG Atorvastatin Calcium 40 mg HS PO 05/01/24 22:00 05/02/24 22:18 40 MG Aspirin 81 mg DAILY PO 05/01/24 10:00 05/03/24 10:15 81 MG Diagnostic Test (Pha) 1 strip ACHS 05/01/24 22:00 05/03/24 11:30 1 STRIP Insulin Human Regular ACHS SC 05/01/24 22:00 05/03/24 11:30 4 UNITS Dextrose 50 ml UD PRN IV 05/01/24 20:15 Ceftriaxone Sodium 50 ml @ 100 mls/hr DAILY@09 IV 05/03/24 09:00 Azithromycin 250 ml @ 125 mls/hr DAILY IV 05/03/24 10:00 Albuterol 2.5 mg Q6HPRN PRN NEB 05/02/24 15:00 Ipratropium [place] 0.5 mg Q6HPRN PRN NEB 05/02/24 15:00 Carvedilol 6.25 mg Q12HR PO 05/02/24 22:00 05/03/24 10:16 6.25 MG Gabapentin 300 mg DAILY PO 05/03/24 17:00 objective GENERAL: Awake, alert, oriented. LUNGS: Diminished breath sound at the lung base. CARDIOVASCULAR: Heart sounds are good. ABDOMEN: Soft. laboratory and microbiology Laboratory Tests 05/03/24 08:19 05/01/24 05:36 Test 05/03/24 08:19 Range/Units Serum Glucose 215 H 74-106 mg/dL Problem List Acute hypoxic respiratory failure. Acute on chronic HFrEF. Acute shortness of breath. NSTEMI type 2 likely due to demand related ischemia. Bilateral pleural effusion. Bilateral leg edema. Dilated cardiomyopathy. Left foot ulcer. Hypertension. Diabetes mellitus type 2. Peripheral vascular disease Diabetic neuropathy. Hyperlipidemia. History of polysubstance abuse, marijuana. CKD stage 3A. End stage dilated cardiomyopathy. Assessment/Plan Continued all current supportive medical care. Morphine for pain management. Entresto. Aspirin, Lipitor. Additional plan as per the hospital course. Plan discussed with: Patient DESHAUN PETERSON MD May 03, 2024 14:17
--- NOTE | 2024-05-03 22:30 | DVHDSRES ---
Discharge Summary Date of Admission Resident Creating Document: MINISTERIO NAILS RESIDENT Apr 30, 2024 at 20:50 Date of Discharge: May 03, 2024 Admitting Diagnosis Acute on chronic HFr EF COPD exacerbation versus possible viral pneumonia Acute respiratory failure Labs/Diagnostic Data: Laboratory Results Test 05/03/24 16:56 05/03/24 08:19 05/02/24 09:39 05/01/24 19:30 POC Glucose 86 mg/dl (70-106) Sodium Level 138 mmol/L (136-145) Potassium Level 4.3 mmol/L (3.5-5.1) Chloride Level 102 mmol/L (98-107) Carbon Dioxide Level 33 mmol/L (20-31) Anion Gap 3 (5-15) Blood Urea Nitrogen 16 mg/dL (9-23) Creatinine 1.52 mg/dL (0.700-1.30) Glomerular Filtration Rate Calc 52 mL/min (>90) BUN/Creatinine Ratio 10.5 (10.0-20.0) Serum Glucose 215 mg/dL (74-106) Calcium Level 9.4 mg/dL (8.7-10.4) Magnesium Level 1.8 mg/dL (1.6-2.6) Urine Creatinine 26.02 mg/dL (30.0-125.0) Urine Protein/Creatinine Ratio 0.23 Urine Sodium 140 mmol/L (40-220) Urine Total Protein < 6.0 mg/dL (1-14) Urine Opiates Screen Neg (NEGATIVE) Urine Fentanyl Screen Neg (NEGATIVE) Urine Barbiturates Screen Neg (NEGATIVE) Urine Phencyclidine Screen Neg (NEGATIVE) Urine Amphetamines Screen Pos (NEGATIVE) Urine Benzodiazepines Screen Neg (NEGATIVE) Urine Cocaine Screen Neg (NEGATIVE) Urine Cannabinoids Screen Neg (NEGATIVE) Test 05/01/24 05:36 04/30/24 20:20 04/30/24 19:51 04/30/24 17:09 White Blood Count 6.6 10^3/uL (4.4-10.8) Red Blood Count 4.44 10^6/uL (4.5-5.90) Hemoglobin 15.2 g/dL (13.5-17.5) Hematocrit 44.5 % (41.0-53.0) Mean Corpuscular Volume 100.1 fL (80.0-100.0) Mean Corpuscular Hemoglobin 34.2 pg (28.0-32.0) Mean Corpuscular Hemoglobin Concent 34.1 g/dL (32.0-36.0) Red Cell Distribution Width 13.6 % (11.8-14.3) Platelet Count 167 10^3/uL (140-450) Mean Platelet Volume 8.7 fL (6.9-10.8) Neutrophils (%) (Auto) 65.3 % (37.0-80.0) Lymphocytes (%) (Auto) 14.8 % (10.0-50.0) Monocytes (%) (Auto) 11.4 % (0.0-12.0) Eosinophils (%) (Auto) 7.5 % (0.0-7.0) Basophils (%) (Auto) 1.0 % (0.0-2.0) Neutrophils # (Auto) 4.3 10 ^3/uL (1.6-8.6) Lymphocytes # (Auto) 1.0 10 ^3/uL (0.4-5.4) Monocytes # (Auto) 0.8 10 ^3/uL (0-1.3) Eosinophils # (Auto) 0.5 10 ^3/uL (0-0.8) Basophils # (Auto) 0.1 10 ^3/uL (0-0.2) Nucleated Red Blood Cells 0.2 % Hemoglobin A1c 6.8 % A1C (<5.7) Total Bilirubin 0.7 mg/dL (0.2-1.0) Aspartate Amino Transferase (AST) 17 U/L (13-40) Alanine Aminotransferase (ALT) 13 U/L (7-40) Alkaline Phosphatase 114 U/L (46-116) Total Protein 6.4 g/dL (5.7-8.2) Albumin 3.6 g/dL (3.2-4.8) Urine Color Yellow (Yellow) Urine Clarity Turbid (Clear) Urine pH 5.5 (5.0-9.0) Urine Specific [place] 1.031 (1.001-1.035) Urine Protein 2+ (Negative) Urine Ketones Negative (Negative) Urine Blood 1+ /uL (Negative) Urine Nitrite Negative (Negative) Urine Bilirubin Negative (Negative) Urine Urobilinogen 4 mg/dL (Negative) Urine Leukocyte Esterase Negative /uL (Negative) Urine RBC 4 /hpf (0 - 3) Urine WBC 3 /hpf (0 - 3) Urine Squamous Epithelial Cells Few /hpf (<5) Urine Calcium Oxalate Crystals Many (None Seen) Urine Bacteria None seen /hpf (None Seen) Urine Mucus Few (None Seen) Urine Glucose 1+ mg/dL (Normal) Troponin I High Sensitivity 80 ng/L (</=54) Plasma/Serum Blood Alcohol < 3.0 mg/dL (<10) B-Type Natriuretic Peptide 1051.47 pg/mL (0-100) Other Laboratory Tests 05/03/24 08:19 05/01/24 05:36 Brief Hx & Hospital Course: This 58 years old male with a pmhx of HFrEF, LVEF 10-15%, hypertension, diabetic neuropathy, hyperlipidemia, PVD, CKD stage IIIA, polysubstance abuse presented to the ED with a chief complaints of short of breath 8 days prior to presenting to the ED. He endorsed orthopnea, PND and bilateral pedal swelling. He also complained of cough with whitish phlegm. Lab work showed Cr 1.43, GFR 56, serum glucose 178 with A1c 6.8, troponin I: 73> 77> 80, BNP 1051.47, potassium 4.5. His echo showed 10% EF, and dilated cardiomyopathy with all chambers dilated. Patient was managed for acute exacerbation of HFrEF, NSTEMI type 2 likely due to demand related ischemia, Dilated cardiomyopathy, acute respiratory failure, COPD exacerbation, possible viral pneumonia. However, patient was very non-compliant with the medical management plans. He refused treatment and wanted only furosemide, he refused IV after day two and wanted to only oral. Patient refused our plan and wanted to go or leave the hospital. We advised patient to comply and complete the IV treatment. He initially agreed, then wanted to leave. Therefore, we discharged him with oral anti-heart failure medications for a month, antibiotic for 5 days. Patient advised to come to the discharge clinic and follow up with his maintainer central office. Overall, he was stable on discharge. Note: patient lives in his car. We asked if we can get hospital social worker to try to get him into a prison, but patient refused. He said his mother lives in [place] Consults/Reason for consult Cardiology for persisted Elevated troponin, Operations or Procedures ORDERING PHYSICIAN: KIA STEPHENSON MD PROCEDURE(s): CXR2 - CHEST TWO VIEWS ROUTINE REASON: SOB ORDER NUMBER(s): [id number], ACCESSION NUMBER(s): [id number] EXAM: XR Chest, 2 Views CLINICAL INDICATION: SOB TECHNIQUE: Frontal and lateral views of the chest. COMPARISON: XY CHEST TWO VIEWS ROUTINE on DOS: 04/29/24, XY CHEST TWO VIEWS ROUTINE on DOS: 09/13/22, XY CHEST TWO VIEWS ROUTINE on DOS: 09/03/22 FINDINGS: LUNGS AND PLEURAL SPACES: Right basilar atelectasis or pneumonia. No pneumothorax. HEART: Unremarkable. No cardiomegaly. MEDIASTINUM: Unremarkable. Normal mediastinal contour. BONES/JOINTS: Unremarkable. No acute fracture. OTHER FINDINGS: . . IMPRESSION: Right basilar atelectasis or pneumonia. ORDERING PHYSICIAN: TRUNG JACKSON RESIDENT PROCEDURE(s): ECIDC - ECHO 2D MODE CARDIAC DOP REASON: SOB, COUGH, PREEVIOUS LVEF-10-15% ORDER NUMBER(s): [id number], ACCESSION NUMBER(s): [id number] APPROVED REPORT EXAM: Two-dimensional and M-mode echocardiogram with Doppler and color Doppler. Blood Pressure: 105/56 mmHg INDICATION Dyspnea RISK FACTORS Height: 5'10", Weight: 188 DIMENSIONS LVDd 5.7 (3.8-5.7cm) LA (2D) 3.8 (1.9-4.0cm) Aortic Root 3.6 (2.0- 3.7cm) LVDs 5.5 (2.5-4.0cm) LA (MM) (1.9-4.0cm) Aortic Cusp Exc 1.7 (1.5- 2.0cm) EF (%) 10.0 (55-70%) Rt. Atrium 4.6 (1.9-4.0cm) Asc. Aorta 3.8 cm IVSd 1.1 (0.7-1.1cm) RV (D) (1.8-2.4cm) PWd 0.9 (0.7-1.1cm) Mitral Valve Mitral Mitral Stenosis E wave 0.75m/s MV Mean GR. mmHg A wave 0.82m/s MV Peak GR. mmHg E/A ratio 0.9 2D MVA cm2 DECEL Time 126ms PRESS 1/2 Time ms Aortic Valve Aortic Valve Aortic Stenosis V1 0.69m/s AO Mean GR. 4mmHg V2 1.27m/s AO Peak GR. 6mmHg LVOT Diameter 2.3 (1.8-2.4cm) Doppler DORA 2.26cm2 AI P 1/2 Time 389.71ms Pulmonic Valve V2 0.70m/s Tricuspid Valve TR Velocity 2.37m/s RVSP 30mmHg Conclusion END STAGE DILATED CARDIOMYOPATHY ALL CARDIAC CHAMBERS ARE DILATED AND ARE HYPOKINETIC LV EJECTION FRACTION IS ONLY 10% NORMAL VALVES NO EFFUSION SIGNED BY: DESHAUN PETERSON MD SIGNED DATE/TIME: 05/03/24 0220 CC: Condition at Discharge: Stable Final Diagnosis/Problems List Acute on chronic HFrEF COPD exacerbation CIARAN on CKD 3A Acute hypoxic respiratory failure Diabetic neuropathy NSTEMI type 2 likely due to demand related ischemia. Dilated cardiomyopathy. Left foot ulcer. Discharge Disposition: He lives in his car. attempt to arrange for a prison, but patient said no Discharge Instruct/Medications Diet: Cardiac 2g Na,low cholest Activity: No Restrictions, As Tolerated Activity comment: Needs to adhere to cardiac /renal diet Follow Up/Referral: 7 days at the discharge clinic Discharge Statement: "Patient was advised to return to the ER or call 911 if any headaches, dizziness, shortness of breath, chest pain, abdominal pain, bleeding, fevers, or worsening of medical condition. Patient was counseled about treatment plan, medications, possible side effects, patientverbalized understanding. All questions were answered to the best of my ability. This discharge took greater then 30 minutes in planning, reviewing documentation, counseling the patient, and discussing with other team members." ASSESSMENT ASSESSMENT Assessment Acute on chronic HFrEF COPD exacerbation CIARAN Acute hypoxic respiratory failure. NSTEMI type 2 likely due to demand related ischemia. Dilated cardiomyopathy. Left foot ulcer. MINISTERIO NAILS RESIDENT May 03, 2024 22:30
== END 2024-05-03 20:20 | disposition home or self-care (01) | DRG 133 ==
LOC: ER 16:19 → TELE 20:50 → TELE-WESTW 23:23
PROVIDERS: ADMIT Student in an Organized Health Care Education/Training Program; ATTEND Student in an Organized Health Care Education/Training Program
DX: J96.01 Acute respiratory failure with hypoxia (principal); I21.A1 Myocardial infarction type 2; I50.23 Acute on chronic systolic (congestive) heart failure; I42.0 Dilated cardiomyopathy; J44.1 Chronic obstructive pulmonary disease with (acute) exacerbation; I13.0 Hypertensive heart and chronic kidney disease with heart failure and stage 1 through stage 4 chronic kidney disease, or unspecified chronic kidney disease; E11.22 Type 2 diabetes mellitus with diabetic chronic kidney disease; E11.40 Type 2 diabetes mellitus with diabetic neuropathy, unspecified; E11.621 Type 2 diabetes mellitus with foot ulcer; E78.5 Hyperlipidemia, unspecified; L97.529 Non-pressure chronic ulcer of other part of left foot with unspecified severity; N18.31 Chronic kidney disease, stage 3a; E11.51 Type 2 diabetes mellitus with diabetic peripheral angiopathy without gangrene; Z80.42 Family history of malignant neoplasm of prostate; Z82.49 Family history of ischemic heart disease and other diseases of the circulatory system; Z79.4 Long term (current) use of insulin; Z79.899 Other long term (current) drug therapy
CPT/HCPCS: 36415; 71046; 80048; 80053; 80307; 80320; 81001; 82570; 82962; 83036; 83735; 83880; 84156; 84300; 84484; 85025; 93005; 93306; 99291; G0378; J1815

== ENCOUNTER 2024-09-30 12:23 | Inpatient (IN) | payer OTHER ==
[~2024-09-30] VITALS: Ht 177.8 cm; Wt 77.5 kg
[~2024-09-30 12:23] MED LIST changes: +ATOR20TA50 PO; +ATOR40TA52 PO; +CARV-214 PO; +CARV6.2551 PO; +FURO1TAB33 PO; +FURO1TAB77 PO; +LEVO750T40 PO; -LISI10TA34 PO; +SPIR25TA PO; +SPIR50TA5 PO
--- NOTE | 2024-09-30 12:33 | ED.PDOC ---
HPI Comments 59 year old male presents to the ED with a chief complaint of chest pain onset 3 days. Patient states he has been experiencing chest pain that radiates to LT shoulder as well as nausea, dizziness for the past 3 days. PMHx DM, HTN, HLD, anxiety, CHF. Denies shortness of breath, fever, chills, vomiting, diarrhea, abdominal pain. No other symptoms or modifying factors present at this time. Time Seen by MD: 12:25 Primary Care Provider: PATRICE Becerril Notes: Medications, Allergies Allergies: Coded Allergies: NO KNOWN ALLERGIES (Unverified , 09/24/22) Home Meds Active Scripts Aspirin (Aspirin Low Dose) 81 Mg Tab, 81 MG PO DAILY for 30 Days, #30 TAB Prov:[facility] 05/03/24 Carvedilol (Carvedilol) 6.25 Mg Tab, 1 TAB PO BID for 30 Days, #60 TAB 5 Refills Prov:[facility] 05/03/24 Furosemide (Furosemide 80 mg) 1 Tab Tab, 1 TAB PO BID for 30 Days, #60 TAB Prov:[facility] 05/03/24 Gabapentin (Gabapentin) 300 Mg Cap, 300 MG PO DAILY for 30 Days, #30 CAP Prov:[facility] 05/03/24 Levofloxacin Hemihydrate (LEVOFLOXACIN) 750 Mg Tab, 750 MG PO DAILY for 5 Days, #5 TAB Prov:[facility] 05/03/24 Spironolactone (Spironolactone) 50 Mg Tab, 50 MG PO DAILY for 30 Days, #30 TAB Prov:[facility] 05/03/24 Atorvastatin Calcium (ATORVASTATIN CALCIUM) 40 Mg Tab, 40 MG PO HS for 30 Days, #30 TAB Prov:[facility] 05/03/24 Levofloxacin Hemihydrate (LEVOFLOXACIN) 750 Mg Tab, 750 MG PO DAILY for 5 Days, #5 TAB Prov:[facility] 05/03/24 Furosemide (Lasix) 20 Mg Tb, 4 TAB PO BID for 30 Days, #240 TAB 3 Refills Prov:[facility] 05/03/24 Spironolactone (Aldactone) 25 Mg Tab, 50 MG PO DAILY for 30 Days, #60 TAB Prov:[facility] 11/23/24 Gabapentin (Gabapentin) 300 Mg Cap, 300 MG PO DAILY for 30 Days, #30 CAP Prov:[facility] 05/03/24 Carvedilol (COREG) 3.125 Mg Tab, 6.25 MG PO Q12HR for 30 Days, #120 TAB Prov:[facility] 05/03/24 Atorvastatin Calcium (ATORVASTATIN CALCIUM) 20 Mg Tab, 40 MG PO HS for 30 Days, #30 TAB Prov:[facility] 05/03/24 Aspirin (Aspirin Low Dose) 81 Mg Tab, 81 MG PO DAILY for 30 Days, #30 TAB Prov:[facility] 05/03/24 Reported Medications Spironolactone (Aldactone) 50 Mg Tab, 1 TAB PO DAILY, #30 TAB 3 Refills 07/02/23 Carvedilol (Coreg) 3.125 Mg Tab, PO, TAB 06/28/22 Atorvastatin Calcium (Lipitor) 10 Mg Tab, PO, TAB 06/28/22 Gabapentin (Gabapentin) 300 Mg Cap, 300 MG PO DAILY for 30 Days, MG 09/02/21 Furosemide (Furosemide) 80 Mg Tab, 1 TAB PO BID, #180 TAB 3 Refills 09/02/21 Aspirin (Aspirin Low Dose) 81 Mg Tab, 1 TAB PO DAILY 04/30/21 Information Source: Patient Mode of Arrival: Ambulatory Severity: Moderate Timing: Days Duration: Since onset Prehospital treatment: None Location: Chest (L) Radiation: Shoulder (L) Quality: Sharp Onset: At Rest Cardiac Risk Factors: Smoker, Hyperlipidemia, HTN, Diabetes Modifying Factors: Nothing Associated Signs and Symptoms: N/V Past Medical History PAST MEDICAL HISTORY: Anxiety, CHF, DM, High Lipids, HTN Surgical History: Denies all surgeries Family History Family History: No family hx of Cancer, No family hx of DM, No family hx of HTN, No family hx ofKidney tha, No family hx of Liver tha, No family hx of Lung tha, No family hx of Stroke, Family hx of heart tha Social History Smoker: Quit Greater Than 1 Year, Cigarettes Alcohol: Occasionally Drugs: Methamphetamine Lives In: Home Constitutional: denies: chills, diaphoresis, fatigue, fever, malaise, sweats, weakness, others EENTM: denies: blurred vision, double vision, ear bleeding, ear discharge, ear drainage, ear pain, ear ringing, eye pain, eye redness, hearing loss, mouth pain, mouth swelling, nasal discharge, nose bleeding, nose congestion, nose pain, photophobia, tearing, throat pain, throat swelling, voice changes, others Respiratory: denies: cough, hemoptysis, orthopnea, SOB at rest, shortness of breath, SOB with excertion, stridor, wheezing, others Cardiovascular: reports: chest pain; denies: dizzy spells, diaphoresis, Dyspnea on exertion, edema, irregular heart beat, left arm pain, lightheadedness, palpitations, PND, syncope, others Gastrointestinal: reports: nausea; denies: abdomen distended, abdominal pain, blood streaked bowels, constipated, diarrhea, dysphagia, difficulty swallowing, hematemesis, melena, poor appetite, poor fluid intake, rectal bleeding, rectal pain, vomiting, others Genitourinary: denies: burning, dysuria, flank pain, frequency, hematuria, incontinence, penile discharge, penile sore, pain, testicle pain, testicle swelling, urgency, others Neurological: reports: dizziness; denies: fainting, headache, left sided numbness, left sided weakness, numbness, paresthesia, pre-existing deficit, right sided numbness, right sided weakness, seizure, speech problems, tingling, tremors, weakness, others Musculoskeletal: reports: others (LT shoulder); denies: back pain, gout, joint pain, joint swelling, muscle pain, muscle stiffness, neck pain Integumetry: denies: bruises, change in color, change in hair/nails, dryness, laceration, lesions, lumps, rash, wounds, others Allergic/Immunocompromised: denies: Difficulty Healing, Frequent Infections, Hives, Itching, others Hematologic/Lymphatic: denies: anemia, blood clots, easy bleeding, easy bruising, swollen glands, others Endocrine: denies: excessive hunger, excessive sweating, excessive thirst, excessive urination, flushing, intolerance to cold, intolerance to heat, unexplained weight gain, unexplained weight loss, others Psychiatric: denies: anxiety, bipolar disorder, depression, hopeless, panic disorder, schizophrenia, sleepless, suicidal, others All Other Systems: Reviewed and Negative Physical Exam General Appearance: Moderate Distress, Normal HEENT: Normal ENT Inspection, Pharynx Normal, TMs Normal Neck: Full Range of Motion, Non-Tender, Normal, Normal Inspection Respiratory: Chest Non-Tender, Lungs Clear, No Accessory Muscle Use, No Respiratory Distress, Normal Breath Sounds Cardiovascular: No Edema, No JVD, No Murmur, No Gallop, Normal Peripheral Pulses, Regular Rate/Rhythm Breast Exam: Deferred Gastrointestinal: No Organomegaly, Non Tender, No Pulsatile Mass, Normal Bowel Sounds, Soft Genitalia: Deferred Pelvic: Deferred Rectal: Deferred Extremities: No calf tenderness, Normal capillary refill, Normal inspection, Normal range of motion, Non-tender, No pedal edema Musculoskeletal : Apperance: Normal Neurologic: Alert, bullet slugs inspector II-XII nml as Tested, No Motor Deficits, Normal Affect, Normal Mood, No Sensory Deficits Cerebellar Function: NOT DONE Reflexes: NOT DONE Skin: Dry, Normal Color, Warm Peripheral Pulses: 3+ Radial (R), 3+ Radial (L) Lymphatic: No Adenopathy EKG EKG : Pulse Rate (adult): 151 Cardiac Rhythm: ST Was a procedure done? Was a procedure done?: No CP Differential Dx Differential Diagnosis: A-fib, A-Flutter, Angina, Anxiety / Panic Attack, Atrial Dysrhythmia, Electrolyte Disorder X-Ray, Labs, Meds, VS Vital Signs Date Time Temp Pulse Resp B/P (MAP) Pulse Ox O2 Delivery O2 Flow Rate FiO2 09/30/24 13:36 15 97 Room Air* 0 21 09/30/24 12:36 97.9 154 28 110/67 (81) 97 97.9 09/30/24 12:36 151 09/30/24 12:34 151 Lab Test 09/30/24 13:30 09/30/24 12:38 Range/Units Troponin I High Sensitivity 343 *H 356 *H </=54 ng/L White Blood Count 9.3 4.4-10.8 10^3/uL Red Blood Count 5.41 4.5-5.90 10^6/uL Hemoglobin 18.0 H 13.5-17.5 g/dL Hematocrit 54.3 H 41.0-53.0 % Mean Corpuscular Volume 100.4 H 80.0-100.0 fL Mean Corpuscular Hemoglobin 33.2 H 28.0-32.0 pg Mean Corpuscular Hemoglobin Concent 33.1 32.0-36.0 g/dL Red Cell Distribution Width 16.0 H 11.8-14.3 % Platelet Count 166 140-450 10^3/uL Mean Platelet Volume 8.9 6.9-10.8 fL Neutrophils (%) (Auto) 74.7 37.0-80.0 % Lymphocytes (%) (Auto) 10.0 10.0-50.0 % Monocytes (%) (Auto) 14.7 H 0.0-12.0 % Eosinophils (%) (Auto) 0.1 0.0-7.0 % Basophils (%) (Auto) 0.5 0.0-2.0 % Neutrophils # (Auto) 7.0 1.6-8.6 10 ^3/uL Lymphocytes # (Auto) 0.9 0.4-5.4 10 ^3/uL Monocytes # (Auto) 1.4 H 0-1.3 10 ^3/uL Eosinophils # (Auto) 0 0-0.8 10 ^3/uL Basophils # (Auto) 0 0-0.2 10 ^3/uL Nucleated Red Blood Cells 0.2 % Sodium Level 134 L 136-145 mmol/L Potassium Level 4.7 3.5-5.1 mmol/L Chloride Level 98 98-107 mmol/L Carbon Dioxide Level 26 20-31 mmol/L Anion Gap 10 5-15 Blood Urea Nitrogen 36 H 9-23 mg/dL Creatinine 2.41 H 0.700-1.30 mg/dL Glomerular Filtration Rate Calc 30 >90 mL/min BUN/Creatinine Ratio 14.9 10.0-20.0 Serum Glucose 198 H 74-106 mg/dL Calcium Level 9.9 8.7-10.4 mg/dL Patient alert. Complaining of chest pain. Vitals stable. Answering questions. Blood sugar elevated. Cardiac marker elevated. Was given Lovenox. EKG reviewed does not show any acute changes pain Tachycardia. Possible anxiety. Kidney function elevated. Continues to smoke cigarettes. Counseled patient on effects of smoking cigarettes for 15 minutes. Reviewed his history. Explained to the patient. Continue monitoring. Cardiology consultation. Time of 1ST Reevaluation: 12:55 Reevaluation 1ST: Unchanged Patient Education/Counseling: Diagnosis, Treatment, Prognosis Family Education/Counseling: No Family Present Additional Information The following tests were ordered, and results were reviewed by me: TROP-x3, CBC, BMP I discussed treatment and results with medical personnel and: Patient Comprehensive systems review obtained and negative except for what is stated in the HPI. Departure 1 Departure Time of Disposition: 14:18 Impression: Primary Impression: NSTEMI (non-ST elevated myocardial infarction) Disposition: 09 ADMITTED INPATIENT Admit to: Med Surg Condition: Guarded Critical Care Note Critical Care Time?: Yes (90 min-critical care time only) Stability Stability form required: No Heart Score Heart Score: Heart Score Response (Comments) Value History Slightly Suspicious 0 EKG Normal 0 Age 45-64 1 Risk Factors >3 or Hx ASHD 2 Troponin >3 x's Normal limit 2 Total 5 I personally scribed for JOSE SOSA MD ([email or web address]) on 09/30/24 at 12:33. Electronically submitted by Lana Real ([email or web address]). I personally scribed for JOSE SOSA MD ([email or web address]) on 09/30/24 at 12:36. Electronically submitted by Lana Real ([email or web address]). I personally scribed for JOSE SOSA MD ([email or web address]) on 09/30/24 at 12:58. Electronically submitted by Lana Real ([email or web address]). JOSE SOSA MD Sep 30, 2024 12:33
[2024-09-30 12:59] LABS: Basophils # (auto) 0 10 ^3/uL (0-0.2); Eosinophils # (auto) 0 10 ^3/uL (0-0.8); Mean Corpuscular Hemoglobin 33.2 pg (28.0-32.0); Monocytes # (auto) 1.4 10 ^3/uL (0-1.3)
[2024-09-30 13:00] LABS: Basophils % (auto) 0.5 % (0.0-2.0); Eosinophils % (auto) 0.1 % (0.0-7.0); Hematocrit 54.3 % (41.0-53.0); Lymphocytes # (auto) 0.9 10 ^3/uL (0.4-5.4); Mean Corpuscular Hgb Conc. 33.1 g/dL (32.0-36.0); Mean Corpuscular Volume 100.4 fL (80.0-100.0); Monocytes % (auto) 14.7 % (0.0-12.0); Neutrophils % (auto) 74.7 % (37.0-80.0); Nucleated Red Blood Cells % 0.2 %; Platelet Count (auto) 166 10^3/uL (140-450); Red Blood Cells 5.41 10^6/uL (4.5-5.90); White Blood Cell 9.3 10^3/uL (4.4-10.8)
[2024-09-30 13:05] LABS: Chloride 98 mmol/L (98-107); Potassium 4.7 mmol/L (3.5-5.1)
[2024-09-30 13:06] LABS: Anion Gap 10 (5-15); Calcium 9.9 mg/dL (8.7-10.4); Carbon Dioxide 26 mmol/L (20-31)
[2024-09-30 13:11] LABS: BUN/Creatinine Ratio 14.9 (10.0-20.0); Blood Urea Nitrogen 36 mg/dL (9-23); Glucose 198 mg/dL (74-106); Sodium 134 mmol/L (136-145)
--- NOTE | 2024-09-30 13:19 | DVH ---
EXAM: XY CHEST PORTABLE DATE OF SERVICE: 09/30/2024 12:48 PM ORDERING PHYSICIAN: JOSE SOSA REASON FOR EXAM: sob TECHNIQUE: Single frontal view of the chest was obtained COMPARISON: XY CHEST PORTABLE on DOS: 07/01/23, XY CHEST PORTABLE on DOS: 06/10/23, XY CHEST PORTABLE on DOS: 05/14/23, XY CHEST PORTABLE on DOS: 09/24/22, XY CHEST PORTABLE on DOS: 08/07/22, XY CHEST MARTELL BLE on DOS: 07/01/23 FINDINGS: Lines and Tubes: None Lungs/pleura: Obscuration of the left hemidiaphragm with blunting of the right costophrenic angle is opacification over the bilateral lower lung zones. Curvilinear density over the right lower lung zone No pneumothorax. Cardiomediastinal contours: Mild to moderate cardiomegaly Bones: No acute osseous abnormality. IMPRESSION: 1. Findings suggestive of small/trace bilateral pleural effusions and associated atelectasis. Underlying left basilar pneumonia cannot be excluded. Right lower lung zone atelectasis. End of Report
[2024-09-30 13:36] VITALS: RESP 15; O2SAT 97
[2024-09-30] MEDS: ENOXAPARIN SOD 100 MG/1 ML SYRINGE SC ONE (14:30)
[2024-09-30] MEDS: SODIUM CHLORIDE 0.9% 1,000 ML IV ONE ×2 (15:35→19:17)
[2024-09-30] MEDS ORDERED: ACETAMINOPHEN 325 MG TAB PO PRN (15:45)
[2024-09-30] MEDS ORDERED: NITROGLYCERIN 0.4 MG SL TAB SL PRN ×2 (15:45)
[2024-09-30] MEDS ORDERED: ONDANSETRON HCL 4 MG/2 ML VIAL IV PRN (15:45)
[2024-09-30] MEDS ORDERED: MORPHINE SULFATE 4 MG/ML SYR/VIAL IV PRN (15:45)
--- NOTE | 2024-09-30 15:47 | DVHHP2 ---
History of Present Illness Reason for Visit: chest pain History of Present Illness 59-year-old male with a past medical history of congestive heart failure (EF 10% per echo from April 2024), diabetes mellitus, hypertension, hyperlipidemia, and anxiety, who presents with chest pain, dizziness, and generalized weakness ongoing for the past three days. The patient reports associated nausea without vomiting, increased anxiety, poor sleep, dry mouth, and constipation with no bowel movement for three days. He also notes dark danish urine output. The patient states he has been compliant with his medications, including Lasix and Aldactone, but has not seen his primary care physician or dredge pipe installer (Dr. Clarke) in over a year. On arrival to the ED, he was noted to be tachycardic with atrial fibrillation, heart rate peaking at 155 bpm. After administration of IV metoprolol, his heart rate decreased to 120 bpm. Laboratory evaluation revealed hemoconcentration with hemoglobin of 18.0, sodium 134, creatinine 2.11 (elevated from baseline), and glucose of 198. Serial troponins were elevated without dynamic changes. EKG showed atrial fibrillation without ST-elevation lovenox was provided 1mg/kg and er informed to call stat call to pt cards Dr. Clarke. Chest X-ray demonstrated atelectasis, and findings concerning for pneumonia. A Lovenox dose was given in the ED for pe ppx The patient appeared volume depleted on exam d/t ciaran and elevated hemoglobin and was given a 1L IV fluid bolus cautiously due to his low EF. Given his history of severe systolic heart failure, atrial fibrillation with RVR, acute kidney injury, and suspected pneumonia, the patient will be admitted for further management. A VQ scan has been ordered to rule out pulmonary embolism, and a repeat echocardiogram will be obtained to reassess cardiac function. Insulin sliding scale initiated for hyperglycemia. Home Coreg has been resumed. cards to be consulted started on asa and atorvastatin Past Medical History see hpi above Past Surgical History see hpi above Family History Reviewed, non-contributory to the management of this case. Past Social History Patient states he still smoke but denies drug or alcohol use Review of Systems Constitutional: No: Fever, Chills, Sweats, Weakness, Malaise, Other Eyes: No: Pain, Vision change, Conjunctivae inflammation, Eyelid inflammation, Other, Redness ENT: No: Ear pain, Ear discharge, Nose pain, Nose discharge, Nose congestion, Mouth pain, Mouth swelling, Throat pain, Throat swelling, Other Respiratory: No: Cough, Dry, Shortness of breath, SOB with excertion, Wheezing, Hemoptysis, Pleuritic Pain, Sputum, Wheezing, Other Cardiovascular: Chest Pain; No: Palpitations, Orthopnea, Paroxysmal Noc. Dyspnea, Edema, Lt Headedness, Other Gastrointestinal: No: Nausea, Vomiting, Abdominal Pain, Diarrhea, Constipation, Melena, Hematochezia, Other Genitourinary: No Dysuria, No Frequency, No Incontinence, No Hematuria, No Retention, No Other Musculoskeletal: No: other, neck pain, shoulder pain, arm pain, back pain, hand pain, leg pain, foot pain Skin: No: Rash, Lesions, Jaundice, Bruising, Other Neurological: Other (Dizziness); No: Weakness, Numbness, Incoordination, Change in speech, Confusion, Seizures Allergies: Coded Allergies: NO KNOWN ALLERGIES (Unverified , 09/24/22) Exam Vital Signs Vital Signs Date Time Temp Pulse Resp B/P (MAP) Pulse Ox O2 Delivery O2 Flow Rate FiO2 09/30/24 13:50 156 12 114/79 (91) 97 09/30/24 13:36 Room Air* 0 21 09/30/24 12:36 97.9 97.9 General Appearance: Alert, Oriented X3, Cooperative, mild distress HEENT: Atraumatic, PERRLA, EOMI, Mucous membr. moist/pink, Other (Dry mucous membranes) Respiratory: Clear to auscultation, Normal air movement, Other (No crackles or rales heard in the lungs) Cardiovascular: Normal S1, Normal S2, Other (AFib irregular regular heart rate) Abdominal: Normal bowel sounds, Soft, No tenderness, No hepatospenomegaly, No masses Extremities: No clubbing, No cyanosis, No edema, Normal pulses, No tenderness/swelling Skin: No rashes, No breakdown, No significant lesion Neuro: Other (Neuro nonfocal) Psych/Mental Status: Mental status NL, Mood NL Labs/Xrays Chest x-ray shows pneumonia and atelectasis I reviewed labs, imaging CT scan abdomen pelvis, EKG and all diagnostic studies on this patient from ED records and the medical chart Labs Test 09/30/24 15:24 09/30/24 12:38 Range/Units White Blood Count 9.3 4.4-10.8 10^3/uL Red Blood Count 5.41 4.5-5.90 10^6/uL Hemoglobin 18.0 H 13.5-17.5 g/dL Hematocrit 54.3 H 41.0-53.0 % Mean Corpuscular Volume 100.4 H 80.0-100.0 fL Mean Corpuscular Hemoglobin 33.2 H 28.0-32.0 pg Mean Corpuscular Hemoglobin Concent 33.1 32.0-36.0 g/dL Red Cell Distribution Width 16.0 H 11.8-14.3 % Platelet Count 166 140-450 10^3/uL Mean Platelet Volume 8.9 6.9-10.8 fL Neutrophils (%) (Auto) 74.7 37.0-80.0 % Lymphocytes (%) (Auto) 10.0 10.0-50.0 % Monocytes (%) (Auto) 14.7 H 0.0-12.0 % Eosinophils (%) (Auto) 0.1 0.0-7.0 % Basophils (%) (Auto) 0.5 0.0-2.0 % Neutrophils # (Auto) 7.0 1.6-8.6 10 ^3/uL Lymphocytes # (Auto) 0.9 0.4-5.4 10 ^3/uL Monocytes # (Auto) 1.4 H 0-1.3 10 ^3/uL Eosinophils # (Auto) 0 0-0.8 10 ^3/uL Basophils # (Auto) 0 0-0.2 10 ^3/uL Nucleated Red Blood Cells 0.2 % Sodium Level 134 L 136-145 mmol/L Potassium Level 4.7 3.5-5.1 mmol/L Chloride Level 98 98-107 mmol/L Carbon Dioxide Level 26 20-31 mmol/L Anion Gap 10 5-15 Blood Urea Nitrogen 36 H 9-23 mg/dL Creatinine 2.41 H 0.700-1.30 mg/dL Glomerular Filtration Rate Calc 30 >90 mL/min BUN/Creatinine Ratio 14.9 10.0-20.0 Serum Glucose 198 H 74-106 mg/dL Calcium Level 9.9 8.7-10.4 mg/dL Assessment/Plan Assessment/Plan 59-year-old male with HFrEF (EF 10%), atrial fibrillation, CIARAN, and suspected pneumonia, presenting with chest pain, dizziness, and dehydration. acute chest pain likely nstemi ekg no stemi trop positive x3i ordered Cards Dr. Clarke pt cards fu recs ordered coreg asa atorvastatin ordered Echocardiogram follow-up results ordered vq scan to eval for pe ordered lovenox 1mg/kg for now ordered morphine as needed for pain, ordered nitro prn acute Atrial Fibrillation with RVR provided metoprolol iv x 1 dose Plan: Continue beta-genie (Coreg) Monitor heart rate and rhythm Anticoagulation with Lovenox for now Acute Kidney Injury likely pre-renal from dehydration and diuretics Plan: Monitor renal function daily Avoid further nephrotoxic agents Adjust diuretics carefully after stabilization ordered urine sodium and crea to check fena acute bacterial community acquired Pneumonia suspected based on CXR Plan: Start empiric IV antibiotics (ceftriaxone + azithromycin) Monitor WBC and fever Supplemental O2 if needed Acute on Chronic Systolic Heart Failure EF 10%,does not appear decompensated on my exam appears more dry gently provided ns monitor uncontrolled Hyperglycemia known DM2, uncontrolled Plan: Initiate insulin sliding scale rounding team to order Check HbA1c acute Constipation secondary to diuretics and dehydration Plan: Start MiraLAX and docusate Monitor bowel movements Consider PRN suppository if no BM in 48 hrs chronic Anxiety exacerbated by current illness Plan: Supportive care, sleep hygiene FEN/ppx IVF: Hold further fluids unless needed Monitor BMP, replete electrolytes Cardiac diet, diabetic modifications VTE: Lovenox continued GI: Pantoprazole 40 mg IV daily Fall: Fall precautions due to dizziness and CIARAN DISPOSITION Admit to [facility] for management of CHF exacerbation, atrial fibrillation with RVR, CIARAN, and pneumonia. Monitor cardiac status, renal function, and glucose control. Await VQ scan and repeat echocardiogram Plan discussed with: Patient My Orders Orders - HOSEA MARTE DNP Procedure Category Date Status Time Sodium Chloride 0.9% PHA 09/30/24 Logged 15:45 Echo 2d Mode Cardiac US 09/30/24 Logged DOP 15:36 * Cardiology Consult CONS 09/30/24 Transmitted 15:36 Enoxaparin Sodium PHA 09/30/24 Verified (Lovenox) 22:00 Nm Vq Scan NM 09/30/24 Verified 15:38 Aspirin Enteric PHA 10/01/24 Verified Coated Tablet 10:00 Atorvastatin (Lipitor) PHA 09/30/24 Verified 22:00 Gabapentin Capsule PHA 10/01/24 Verified (Neurontin Capsule) 10:00 (Nf) Atorvastatin PHA 09/30/24 Verified Calcium 22:00 (Nf) Carvedilol PHA 09/30/24 Verified 22:00 Admit ADMIT 09/30/24 Verified 15:38 Code Status CODE 09/30/24 Verified 15:38 Vital Signs [facility] 09/30/24 Verified 15:38 Level Designer [facility] 09/30/24 Verified 15:38 May Elevate Hob ____ ANICETO 09/30/24 Verified Degrees 15:38 Cardiac DIET 09/30/24 Verified Diet-2gna,Lofat,Lochol Dinner Morphine Sulfate PHA 09/30/24 Verified Injection 15:45 Acetaminophen Tablet PHA 09/30/24 Verified (Tylenol Tablet) 15:45 Docusate Sodium PHA 10/01/24 Verified Capsule (Colace 10:00 Complete Blood Count LAB 10/01/24 Verified 04:00 Basic Metabolic Panel LAB 10/01/24 Verified 04:00 Prothrombin Time W/ LAB 09/30/24 Verified INR 15:38 Nitroglycerin [facility] 09/30/24 Verified Sublingual (Ntrostat 15:45 Ondansetron Hcl PHA 09/30/24 Verified (Zofran) 15:45 Magnesium LAB 09/30/24 Verified 15:38 Troponin-I Hs LAB 09/30/24 Verified 15:38 Cardiac [facility] 09/30/24 Verified Rehabilitation - Outpa Nitroglycerin [facility] 09/30/24 Verified Sublingual (Ntrostat 15:45 Stat Ekg For Chest [facility] 09/30/24 Verified Pain 15:38 Notify Md Of Changes [facility] 09/30/24 Verified From Base 15:38 Registered Mail Clerk For [facility] 09/30/24 Verified 24 Hours 15:38 Emergency Dysrhythmia [facility] 09/30/24 Verified Protocol 15:38 Rhythm Strips Once [facility] 09/30/24 Verified Every Shift 15:38 Oxygen By Nasal RT 09/30/24 Verified Cannula 15:38 Phosphorus LAB 09/30/24 Verified 15:38 Thyroid Stimulating LAB 09/30/24 Verified Hormone 15:38 Glucose Blood PHA 09/30/24 Verified (Accu-Chek Comfort 17:00 Mild Sliding Scale PHA 09/30/24 Verified 17:00 Dextrose 50% Syringe PHA 09/30/24 Verified 15:45 Urine Sodium LAB 09/30/24 Verified 15:38 Urine Creatinine LAB 09/30/24 Verified 15:38 Ceftriaxone Ivpb PHA 10/01/24 Verified Rocephin 09:00 Ceftriaxone Ivpb PHA 09/30/24 Verified Rocephin 15:45 Azithromycin 500mg/ PHA 10/01/24 Verified 250ml (Zithromax 50 10:00 Azithromycin 500mg/ PHA 09/30/24 Verified 250ml (Zithromax 50 15:45 Date of Service: Sep 30, 2024 Billing Provider: HOSEA MARTE DNP Common Visit Codes: [id number] INP/OBS CARE (HIGH), [id number] CARE 30- 74 MIN (Total critical care time: Approximately 45 minutes This critical care time included obtaining a history; examining the patient; pulse oximetry; ordering and review of studies; arranging urgent treatment with development of a management plan; evaluation of patient's response to treatment; frequent reassessment; and, discussions with other providers.) HOSEA MARTE DNP Sep 30, 2024 15:47
[2024-09-30] MEDS: cefTRIAXone 1GM/50ML D5W 50 ML IV ONE (15:59)
[2024-09-30 16:39] LABS: INR 1.71 (0.9-1.15); Prothrombin Time 17.2 sec (9.3-11.8)
[2024-09-30] MEDS: ACCU-CHEK COMFORT CURVE STRIP VI SCH (17:00)
[2024-09-30] MEDS: METOPROLOL TARTRATE 1MG/1ML-5ML VIAL IV ONE (17:05)
[2024-09-30] MEDS: AZITHROMYCIN 500MG/ 250ML 250 ML IV ONE (17:14)
[2024-09-30] MEDS: CARVEDILOL 3.125 MG TAB PO SCH (17:32)
[2024-09-30] MEDS: InsuLIN REG 1unit/0.01ml Soln (100units/ml) SC SCH (18:25)
[2024-09-30] MEDS: ROCURONIUM 10MG/ML 10ML VIAL IV ONE ×2 (18:50→19:33)
[2024-09-30] MEDS: ETOMIDATE (2MG/ML) 20ML VIAL IV ONE ×2 (18:50→19:33)
[2024-09-30 19:00] VITALS: BP 50/17; PULSE 102; RESP 18; O2SAT 95
[2024-09-30] MEDS: NOREPINEPHRINE 8 MG/250ML KIT 250 ML IV SCH (19:11)
[2024-09-30] MEDS: MIDAZOLAM DRIP 50 mg/50mL 50 ML IV ONE (19:12)
[2024-09-30] MEDS: NOREPINEPHRINE 8 MG/250ML KIT 250 ML IV ONE (19:12)
[2024-09-30] MEDS: PROPOFOL 100 ML IV ONE (19:13)
[2024-09-30] MEDS ORDERED: VANCOMYCIN PER PHARMACY 0 MG IV SCH (19:15)
[2024-09-30 19:30] VITALS: PULSE 94; RESP 18; O2SAT 100
[2024-09-30] MEDS: VASOPRESSIN 20 UNIT/ML ONE (19:39)
[2024-09-30] MEDS: PIPERACILLIN-TAZOB 3.375GM 100 ML IV ONE (19:41)
--- NOTE | 2024-09-30 19:57 | ECG ---
[facility] [place] Test Date: 2024-09-30 Test Time: 17:22:14 Pat Name: TANVI HU Department: ED Room: [address] [place] [address] A Gender: M Consultant Education: FRANCISCO : 1965 Requested By: JOSE SOSA Order Number: [id number] Reading MD: Bayron Paul Measurements Intervals [place] Rate: 124 P: 0 VT: 0 QRS: 124 QRSD: 111 T: 65 QT: 401 QTc: 576 Interpretive Statements Atrial flutter Right axis deviation Probable anteroseptal infarct, old Nonspecific T abnormalities, lateral leads Prolonged QT interval Electronically Signed On 10-01-2024 13:18:57 PDT by Bayron Paul Please click the below link to view image of tracing.
[2024-09-30] MEDS: VANCOMYCIN 1.25GM/250ML 250 ML IV ONE (20:00)
--- NOTE | 2024-09-30 20:00 | ED.PDOC ---
Was a procedure done? Was a procedure done?: Yes Sedation Sedation?: No Central Line Recorder of insertion practice: Equipment Validation Specialist Occupation of director family: Attending Physician Indication: Hypotension Room prepared for procedure: Yes Equipment Validation Specialist performed hand hygien: Yes Maximal sterile barrier precau: Mask/Eye shield, Sterlie gloves, Large sterlie drape Skin Preparation: Chlorhexidine gluconate Skin preparation completely dr: Yes Insertion site: Right, Femoral Central line catheter type: [id number] dialysis Number of lumens: 3 Central line exchanged over a: Yes Antiseptic ointment applied to: Yes Post Assessment: Proper placement Informed consent obtained: No Risks/benefits/alt described: No Intubation Indication: Respiratory Insufficiency, Altered Mental Status, Airway Protection Prep: Preoxygenation Pretreated with: Other (etomidate) Medicated with: Other (rocuronium) Intubation Approach: Orotracheal Intubation size: cm (8) Informed consent obtained: No Risks/benefits/alt described: No Other Procedure Procedure RIght femoral arterial line Indication multiple pressors, intensive blood pressure monitoring Anesthetic None Prep Chloroprep Success Tolerated procedure well without complications Informed consent obtained: No Risks, benefits, and alternati: No Notes Patient was found facedown unresponsive in a pool of blood. Patient was not spontaneously breathing and was aspirating blood. Patient was emergently intubated, central line placed, arterial line placed, pressors started. CT and chest x-ray was ordered. Primary team was made aware of patients deterioration and they came to bedside to resume management. KIA STEPHENSON MD Sep 30, 2024 20:00
--- NOTE | 2024-09-30 20:04 | PRN ---
Misceleneous Note Note Note 59-year-old male with a history of CHF, diabetes, hypertension, anxiety hld, and admission for chest pain, who was found unresponsive and unconscious on the floor by nursing staff. Noted to have active facial bleeding, lethargy, confusion, and signs of respiratory distress with rapid breathing. Nursing staff assisted in returning the patient to bed. On assessment, the patient was minimally responsive and in significant respiratory compromise with concern for airway protection. The ED team and attending physician were emergently notified and proceeded with intubation for airway management. Patient stabilized post- intubation and arrangements were made for transfer to ICU for higher level of care Spoke with Dr. Clarke via phone regarding anticoagulation management; he agreed with administering Lovenox 40 mg at this time. Ordered stat CT of the brain, maxillofacial, and neck to evaluate for potential trauma or other acute pathology.Patients prior orders from admission have been reviewed and will be continued as appropriate. Additional supportive measures and monitoring initiated per ICU protocol. Plan: Transfer to ICU Maintain mechanical ventilation Lovenox [address] Clarke CT brain, maxillofacial, neck stat Continue prior admission orders Monitor neurological status and hemodynamics closely Await imaging results for further management HOSEA MARTE [facility] Sep 30, 2024 20:04
[2024-09-30 20:14] VITALS: BP 127/82; PULSE 95; RESP 22; O2SAT 95
[2024-09-30 20:34] LABS: Base Excess -13.8 mmol/L (-2.0-3.0)
--- NOTE | 2024-09-30 20:44 | DVH ---
CT HEAD WITHOUT CONTRAST INDICATION: eval for acute fall COMPARISON: None TECHNIQUE: CT of the head without intravenous contrast. RADIATION DOSE: CTDIvol: 62.48 mGy, DLP: 1230.98 mGy*cm FINDINGS: There is no evidence of intracranial hemorrhage, infarct, extra-axial collection, mass effect, midli ne shift, herniation or hydrocephalus. Mild chronic white matter microvascular ischemic change. The v entricles, sulci and cisterns are normal. The pérez-white differentiation is intact. Visualized parana yas sinuses and mastoid air cells are clear. Small locules of air noted in the scalp in the left fron totemporal region presumably related to a laceration. No scalp hematoma. No calvarial abnormality/fr acture. IMPRESSION: No evidence of hemorrhage or other acute intracranial abnormality.
--- NOTE | 2024-09-30 20:49 | DVH ---
EXAM: CT CERVICAL WITHOUT CONTRAST HISTORY: eval for acute fall COMPARISON: None CTDIvol 25.49 mGy, DLP 596.22 mGy*cm. TECHNIQUE: Multiple axial CT images of the spine were obtained using bone algorithm. Axial and coron al reformatting was done. Bone and soft tissue windows were reviewed. FINDINGS: No prevertebral soft tissue abnormality noted. The alignment of the cervical spine is within normal l imits. The cervical vertebral bodies appear unremarkable with no evidence of fracture or dislocation. Visualized paraspinal soft tissues appear unremarkable. Mild multilevel cervical spondylosis with mild posterior disc-osteophytes and facet joint OA without significant spinal canal stenosis. IMPRESSION: No evidence of cervical spine fracture or dislocation.
--- NOTE | 2024-09-30 20:55 | DVH ---
HISTORY: eval for acute trauma TECHNIQUE: Nonenhanced axial images through the facial bones with coronal and sagittal MPR. Radiation Dose Information: CT Dose: CTDI volume is 66.97 mGy. Dose-length product is 1330.14 mGy*cm COMPARISON: CT MAXILLOFACIAL WITHOUT on DOS: 09/03/22 FINDINGS: Soft tissues: Probable mild scalp swelling/contusion in left forehead. Several small locules of air n oted which may be within veins. ETT and OGT noted. Mandible: Unremarkable Maxilla: Unremarkable Zygomatic arches: Unremarkable Nasal bone: Nondisplaced nasal bone fracture. Nasal septum is intact. Orbits: Unremarkable Paranasal Sinuses/Mastoid air cells/Middle ear cavities: Clear IMPRESSION: Nondisplaced nasal bone fracture. Radiation optimization: All CT scans at this facility use at least one of these dose optimization yeison hniques: automated exposure control mA and/or kV adjustment per patient size (includes targeted exam s where dose is matched to clinical indication) or iterative reconstruction.
--- NOTE | 2024-09-30 21:02 | DVH ---
CHEST RADIOGRAPH Indication: post intubation xray Technique: Single frontal view of the chest was obtained Comparison: XY CHEST PORTABLE on DOS: 09/30/24, XY CHEST PORTABLE on DOS: 07/01/23, XY CHEST PORTABLE o n DOS: 06/10/[address] examination of the chest of June 2023 FINDINGS: There is cardiomegaly and widened superior mediastinum. There are increased peribronchial markings bi laterally suggesting possible chronic changes or peribronchial edema endotracheal tube is the level o f the clavicles. Nasogastric tube is in the stomach IMPRESSION: Cardiomegaly, increased peribronchial markings, widened superior mediastinum, endotracheal tube at th e level clavicles nasogastric tube is in the stomach If more imaging is required I would recommend a CT examination of the chest for direct comparison to prior study
[2024-09-30 21:39] VITALS: BP 127/82; PULSE 95; RESP 22; O2SAT 95
[2024-09-30] MEDS: GABAPENTIN 300 MG CAP PO SCH (22:00)
[2024-09-30] MEDS ORDERED: ATORVASTATIN 20 MG TAB PO SCH (22:00)
[2024-09-30] MEDS: MIDAZOLAM DRIP 50 mg/50mL 50 ML IV SCH (22:00)
[2024-09-30] MEDS: ATORVASTATIN 20 MG TAB PO SCH (22:00)
[2024-09-30 22:08] VITALS: BP 83/52; PULSE 76; RESP 22
[2024-09-30] MEDS: DEXTROSE (50%) 50ML SYRG IV PRN (22:47)
[2024-09-30] MEDS: SODIUM BICARB 8.4% 50Meq/50ml SYR Vial IV ONE (22:52)
--- NOTE | 2024-09-30 22:55 | DVHINCON2 ---
Date of service: Sep 30, 2024 Referring Physician Cher Fuller NP Reason for Consultation Acute hypoxic respiratory failure requiring mechanical ventilator History of Present Illness A 59-year-old man with past medical history of congestive heart failure (EF 10% per echo from April 2024), diabetes mellitus, hypertension, hyperlipidemia, and anxiety, who presents to ED today with chest pain, dizziness, and generalized weakness x3 days. He reports associated nausea without vomiting, increased anxiety, poor sleep, dry mouth, and constipation with no bowel movement for 3 days. He also notes dark danish urine output. Patient is compliant with his medications, including Lasix and Aldactone, but has not seen PCP or stock counter (Dr. Clarke) in over a year. On arrival to the ED, he was noted to be tachycardic with atrial fibrillation, heart rate peaking at 155 bpm. After administration of IV metoprolol, heart rate decreased to 120 bpm. Labs showed hemoconcentration with hemoglobin of 18.0, sodium 134, creatinine 2.11 (elevated from baseline), and glucose of 198. Serial troponins were elevated without dynamic changes. EKG showed atrial fibrillation without ST-elevation. Chest x-ray demonstrated atelectasis, and findings concerning for pneumonia. Patient was admitted for further care and pulmonary consultation is requested for evaluation and management d/t the above findings. Review of Systems: 14-point review of systems negative unless otherwise noted above. Past Medical History: Congestive heart failure (EF 10% per echo from April 2024), diabetes me llitus, hypertension, hyperlipidemia, and anxiety Past Surgical History: None Medications: Reviewed. Allergies: No known drug allergies. Family History: PR and prostate cancer. Social History: Nonsmoker. No alcohol or illicit drug use. Family History: FH: heart attack G8 MOTHER Prostate carcinoma G8 FATHER Allergies: Coded Allergies: NO KNOWN ALLERGIES (Unverified , 09/24/22) Home Meds Active Scripts Aspirin (Aspirin Low Dose) 81 Mg Tab, 81 MG PO DAILY for 30 Days, #30 TAB Prov:MINISTERIO NAILS RESIDENT 05/03/24 Carvedilol (Carvedilol) 6.25 Mg Tab, 1 TAB PO BID for 30 Days, #60 TAB 5 Refills Prov:MINISTERIO NAILS RESIDENT 05/03/24 Furosemide (Furosemide 80 mg) 1 Tab Tab, 1 TAB PO BID for 30 Days, #60 TAB Prov:MINISTERIO NAILS [facility] 05/03/24 Gabapentin (Gabapentin) 300 Mg Cap, 300 MG PO DAILY for 30 Days, #30 CAP Prov:MINISTERIO NAILS [facility] 05/03/24 Levofloxacin Hemihydrate (LEVOFLOXACIN) 750 Mg Tab, 750 MG PO DAILY for 5 Days, #5 TAB Prov:MINISTERIO NAILS [facility] 05/03/24 Spironolactone (Spironolactone) 50 Mg Tab, 50 MG PO DAILY for 30 Days, #30 [facility]24 Atorvastatin Calcium (ATORVASTATIN CALCIUM) 40 Mg Tab, 40 MG PO HS for 30 Days, #30 TAB [facility]/03/24 Levofloxacin Hemihydrate (LEVOFLOXACIN) 750 Mg Tab, 750 MG PO DAILY for 5 Days, #5 [facility]/03/24 Furosemide (Lasix) 20 Mg Tb, 4 TAB PO BID for 30 Days, #240 TAB 3 [facility]/03/24 Spironolactone (Aldactone) 25 Mg Tab, 50 MG PO DAILY for 30 Days, #60 TAB [facility]/03/24 Gabapentin (Gabapentin) 300 Mg Cap, 300 MG PO DAILY for 30 Days, #30 CAP [facility]/03/24 Carvedilol (COREG) 3.125 Mg Tab, 6.25 MG PO Q12HR for 30 Days, #120 TAB [facility] 05/03/24 Atorvastatin Calcium (ATORVASTATIN CALCIUM) 20 Mg Tab, 40 MG PO HS for 30 Days, #30 TAB [facility] 05/03/24 Aspirin (Aspirin Low Dose) 81 Mg Tab, 81 MG PO DAILY for 30 Days, #30 TAB [facility]/03/24 Reported Medications Spironolactone (Aldactone) 50 Mg Tab, 1 TAB PO DAILY, #30 TAB 3 Refills 07/02/23 Carvedilol (Coreg) 3.125 Mg Tab, PO, TAB 06/28/22 Atorvastatin Calcium (Lipitor) 10 Mg Tab, PO, TAB 06/28/22 Gabapentin (Gabapentin) 300 Mg Cap, 300 MG PO DAILY for 30 Days, MG 09/02/21 Furosemide (Furosemide) 80 Mg Tab, 1 TAB PO BID, #180 TAB 3 Refills 09/02/21 Aspirin (Aspirin Low Dose) 81 Mg Tab, 1 TAB PO DAILY 04/30/21 Current Medications Current Medications Medications (Trade) Dose Ordered Sig/Conner Route PRN Reason Start Time Stop Time Status Last Admin Enoxaparin Sodium (Lovenox) 90 mg Q12H SC 10/01/24 03:00 Aspirin (Ecotrin Enteric Coated Tablet) 81 mg DAILY PO 10/01/24 10:00 Atorvastatin Calcium (Lipitor) 40 mg HS PO 09/30/24 22:00 Gabapentin (Neurontin Capsule) 300 mg HS PO 09/30/24 22:00 Atorvastatin Calcium (Lipitor) 40 mg HS PO 09/30/24 22:00 09/30/24 16:02 DC Carvedilol (Coreg Tablet) 6.25 mg BID PO 09/30/24 22:00 Hold 09/30/24 17:32 Morphine Sulfate 2 mg Q30MP PRN IV FOR CHEST PAIN 09/30/24 15:45 Acetaminophen (Tylenol Tablet) 325 mg Q4HP PRN PO FOR HEADACHE 09/30/24 15:45 Docusate Sodium (Colace Capsule) 100 mg DAILY PO 10/01/24 10:00 Nitroglycerin (Ntrostat Sublingual) 0.4 mg Q5MINP PRN SL FOR CHEST PAIN 09/30/24 15:45 09/30/24 15:54 DC Ondansetron HCl (Zofran) 4 mg Q4HP PRN IV NAUSEA / VOMITING 09/30/24 15:45 Nitroglycerin (Ntrostat Sublingual) 0.4 mg Q5MINP PRN SL FOR CHEST PAIN 09/30/24 15:45 Diagnostic Test (Pha) (Accu-Chek Comfort Curve T) 1 strip ACHS 09/30/24 17:00 09/30/24 17:00 Insulin Human Regular (InsuLIN R) ACHS SC 09/30/24 17:00 09/30/24 18:25 Dextrose 50 ml UD PRN IV Blood Sugar LESS THAN 60 09/30/24 15:45 Ceftriaxone Sodium 50 ml @ 100 mls/hr DAILY@09 IV 10/01/24 09:00 09/30/24 19:07 DC Azithromycin 250 ml @ 125 mls/hr DAILY IV 10/01/24 10:00 09/30/24 19:07 DC Vancomycin HCl 0 ml @ 0 mls/hr UD IV 09/30/24 19:15 Piperacillin Sod/ Tazobactam Sod 100 ml @ 25 mls/hr Q8H IV 10/01/24 00:00 Propofol 100 ml @ 2.628 mls/ hr Q24H IV 09/30/24 19:15 Midazolam HCl 50 ml @ 1 mls/hr Q24H IV 09/30/24 19:15 Vasopressin 20 units/Sodium Chloride 100 ml @ 9 mls/hr Q11H7M IV 09/30/24 19:45 Norepinephrine Bitartrate 250 ml @ 3.75 mls/hr Q24H IV 09/30/24 20:00 09/30/24 19:11 Pantoprazole Sodium (Protonix) 40 mg DAILY IV 10/01/24 10:00 Aspirin (Ecotrin Enteric Coated Tablet) 81 mg DAILY PO 10/01/24 10:00 UNV Aspirin (Ecotrin Enteric Coated Tablet) 81 mg DAILY PO 10/01/24 10:00 UNV Carvedilol (Coreg Tablet) 6.25 mg Q12HR PO 10/01/24 10:00 UNV Furosemide (Lasix Tablet) 80 mg BID PO 10/01/24 10:00 UNV Gabapentin (Neurontin Capsule) 300 mg DAILY PO 10/01/24 10:00 UNV Gabapentin (Neurontin Capsule) 300 mg DAILY PO 10/01/24 10:00 UNV Spironolactone (Aldactone) 50 mg DAILY PO 10/01/24 10:00 UNV Vital Signs Vital Signs Date Time Temp Pulse Resp B/P (MAP) Pulse Ox O2 Delivery O2 Flow Rate FiO2 09/30/24 22:08 76 22 83/52 (62) 50 09/30/24 21:39 95 09/30/24 19:00 Mechanical Ventilator+ 09/30/24 15:30 98.2 98.2 09/30/24 13:36 0 Physical Exam Gen.: Patient lying in bed in medical ICU. Sedated, intubated on mechanical ventilator. Head: Normocephalic, atraumatic. Eyes: PERRLA. Ears: Normal external anatomy. Throat: Endotracheal tube and orogastric tube in place. Neck: Supple, trachea midline. Chest: Transmitted breath sounds bilaterally. Decreased air entry bilaterally. No wheezing. Bibasilar crackles. Cardiovascular: Positive S1, positive S2. Regular rate and rhythm. Abdomen: Positive bowel sounds in all 4 quadrants. Soft, nontender, nondistended. : Inman in place. Normal external genitalia. Rectal: Deferred. Skin: Warm, dry. Intact. Extremities: 2+ radial pulses bilaterally. No lower extremity edema. Neuro: Sedated. Labs/Diagnostic Data Labs Test 09/30/24 19:48 09/30/24 18:34 09/30/24 18:20 09/30/24 12:38 Range/Units Blood Gas Specimen Type Arterial Blood Gas Sample Site Arterial line Blood Gas Patient Temperature 37.0 Arterial Blood Date Drawn [id number] Arterial Blood pH 7.178 *L 7.350-7.450 Arterial Blood Partial Pressure CO2 38.1 35.0-48.0 mmHg Arterial Blood Partial Pressure O2 280.5 H 83.0-108.0 mmHg Arterial Blood HCO3 13.8 L 21.0-28.0 mmol/L Arterial Blood Oxygen Saturation 99.3 H 94.0-98.0 % Arterial Blood Base Excess -13.8 L -2.0-3.0 mmol/L Arterial Blood Oxyhemoglobin 98.2 H 94.0-98.0 % Arterial Blood Carboxyhemoglobin 0.5 0.5-1.5 % Arterial Blood Methemoglobin 0.6 0.0-1.5 % Alexander Test N/a Blood Gas Total Hemoglobin 17.80 H 13.5-17.5 g/dL Blood Gas Set Respiration Rate 18.0 Blood Gas Modality Vent - ac FiO2 % 100.0 Blood Gas Tidal Volume 500.0 Blood Gas PEEP or CPAP 5.0 Specimen Drawn By Rn Blood Gas Critical Value Read Back Yes Blood Gas Notified Whom dontae Stacy Blood Gas Notified Time [id number] Blood Gas Notified By Troponin I High Sensitivity 451 *H </=54 ng/L POC Glucose 234 H 70-106 mg/dl White Blood Count 9.3 4.4-10.8 10^3/uL Red Blood Count 5.41 4.5-5.90 10^6/uL Hemoglobin 18.0 H 13.5-17.5 g/dL Hematocrit 54.3 H 41.0-53.0 % Mean Corpuscular Volume 100.4 H 80.0-100.0 fL Mean Corpuscular Hemoglobin 33.2 H 28.0-32.0 pg Mean Corpuscular Hemoglobin Concent 33.1 32.0-36.0 g/dL Red Cell Distribution Width 16.0 H 11.8-14.3 % Platelet Count 166 140-450 10^3/uL Mean Platelet Volume 8.9 6.9-10.8 fL Neutrophils (%) (Auto) 74.7 37.0-80.0 % Lymphocytes (%) (Auto) 10.0 10.0-50.0 % Monocytes (%) (Auto) 14.7 H 0.0-12.0 % Eosinophils (%) (Auto) 0.1 0.0-7.0 % Basophils (%) (Auto) 0.5 0.0-2.0 % Neutrophils # (Auto) 7.0 1.6-8.6 10 ^3/uL Lymphocytes # (Auto) 0.9 0.4-5.4 10 ^3/uL Monocytes # (Auto) 1.4 H 0-1.3 10 ^3/uL Eosinophils # (Auto) 0 0-0.8 10 ^3/uL Basophils # (Auto) 0 0-0.2 10 ^3/uL Nucleated Red Blood Cells 0.2 % Prothrombin Time 17.2 H 9.3-11.8 sec Prothrombin Time INR 1.71 H 0.9-1.15 Sodium Level 134 L 136-145 mmol/L Potassium Level 4.7 3.5-5.1 mmol/L Chloride Level 98 98-107 mmol/L Carbon Dioxide Level 26 20-31 mmol/L Anion Gap 10 5-15 Blood Urea Nitrogen 36 H 9-23 mg/dL Creatinine 2.41 H 0.700-1.30 mg/dL Glomerular Filtration Rate Calc 30 >90 mL/min BUN/Creatinine Ratio 14.9 10.0-20.0 Serum Glucose 198 H 74-106 mg/dL Calcium Level 9.9 8.7-10.4 mg/dL Phosphorus Level 4.9 2.4-5.1 mg/dL Magnesium Level 1.6 1.6-2.6 mg/dL Thyroid Stimulating Hormone (TSH) 2.42 0.55-4.78 uIU/mL Assessment Impression: Acute hypoxic respiratory failure On mechanical ventilator Elevated troponin [id number] myocardial infarction Acute kidney injury Syncope Plan: s/p intubation on mechanical ventilator. CXR image and report reviewed. Cardiomegaly, increased peribronchial markings, widened superior mediastinum. Devices in place. ABG reviewed, notable for acidemia d/t metabolic acidosis. On AC mode; RR 18, VT 500, PEEP 5, FiO2 100% Will increase RR to 22. Give amp of bicarb Repeat ABG in 2 hours. Titrate FIO2 to keep O2 saturation above 90%. VAP bundle. Daily ABG and CXR while intubated Sedate for ventilator synchrony Obtain V/Q scan to rule out PE STAT CT head d/t acute fall Continue antibiotics. F/u cultures. On pressors for hemodynamic support Levophed and vasopressin Titrate to keep mean arterial pressure greater than 65 mmHg. Patient in critical condition Accu-Cheks, ISS. Monitor renal function Monitor electrolytes. Supplement as necessary. Monitor ins and outs. Maintain euvolemia. Obtain Echocardiogram Follow up Cardiology recs. GI prophylaxis. DVT prophylaxis - Therapeutic Lovenox. Prognosis: Poor given patient's multiple co-morbidities. Condition: Critical Rest of plan per hospitalist and other consultants. A total of 36 minutes of critical care time was spent reviewing the patient record, examining the patient, making a diagnostic and therapeutic plan, discussing this plan with the medical personnel, following up on diagnostic studies and following the patient for clinical stability excluding any and all procedures. At least 50% of this time was spent in direct, [id number] contact. Thank you, YOLANDA Fuller/YOLANDA Stacy, for allowing me to participate in this patient's care. Further recommendations will depend on the patient's clinical course. Please do not hesitate to contact me if you have any questions or concerns. This medical document was created using an electronic medical record system with [employer] dictation system. Although these documentations are being carefully reviewed, there may still be some phonetic and typographical changes. The errors are purely typographical, due to imperfection on the software program, and do not reflect any compromise in the patient's medical care. Plan discussed with: Other (TATIANA Franklin, RT/YOLANDA Fuller/) YAW PLUNKETT MD Sep 30, 2024 22:55
[2024-09-30 22:58] LABS: Hematocrit 52.2 % (41.0-53.0); Hemoglobin 17.1 g/dL (13.5-17.5)
--- NOTE | 2024-09-30 23:55 | DVHINCON2 ---
Date of service: Sep 30, 2024 Referring Physician Jonny Reason for Consultation Elevated trop History of Present Illness This is a 59 year old male with a PMH of congestive heart failure (EF 10% per echo from April 2024), diabetes mellitus, hypertension, hyperlipidemia, and anxiety who presented to the ED with c/o chest pain, dizziness, and generalized weakness ongoing for the past three days. The patient reports associated nausea without vomiting, increased anxiety, poor sleep, dry mouth, and constipation with no bowel movement for three days. He also notes dark danish urine output. The patient states he has been compliant with his medications, including Lasix and Aldactone. EKG shows A Fib with RVR at 151. Patient received IV Metoprolol. CBC is unremarkable. PT 17.2, INR 1.71, BUN 36, Panman 2.41. Troponin 356 > 343 > 373 > 451. TSH 2.42. Chest x-ray is suggestive of small/trace bilateral pleural effusions and associated atelectasis. Underlying left basilar pneumonia cannot be excluded. Right lower lung zone atelectasis. CT head shows no evidence of hemorrhage or other acute intracranial abnormality. Patient was admitted to the hospital. Patient developed respiratory failure and was intubated and upgraded to the ICU. I am asked to consult on this patient. Family History: FH: heart attack G8 MOTHER Prostate carcinoma G8 FATHER Allergies: Coded Allergies: NO KNOWN ALLERGIES (Unverified , 09/24/22) Home Meds Active Scripts Aspirin (Aspirin Low Dose) 81 Mg Tab, 81 MG PO DAILY for 30 Days, #30 TAB Prov:MINISTERIO NAILS 05/03/24 Carvedilol (Carvedilol) 6.25 Mg Tab, 1 TAB PO BID for 30 Days, #60 TAB 5 Refills Prov:MINISTERIO NAILS 05/03/24 Furosemide (Furosemide 80 mg) 1 Tab Tab, 1 TAB PO BID for 30 Days, #60 TAB Prov:MINISTERIO NAILS 05/03/24 Gabapentin (Gabapentin) 300 Mg Cap, 300 MG PO DAILY for 30 Days, #30 CAP Prov:MINISTERIO NAILS 05/03/24 Levofloxacin Hemihydrate (LEVOFLOXACIN) 750 Mg Tab, 750 MG PO DAILY for 5 Days, #5 TAB Prov:MINISTERIO NAILS 05/03/24 Spironolactone (Spironolactone) 50 Mg Tab, 50 MG PO DAILY for 30 Days, #30 TAB [facility]/24 Atorvastatin Calcium (ATORVASTATIN CALCIUM) 40 Mg Tab, 40 MG PO HS for 30 Days, #30 TAB [facility] 05/03/24 Levofloxacin Hemihydrate (LEVOFLOXACIN) 750 Mg Tab, 750 MG PO DAILY for 5 Days, #5 TAB Prov:[facility] 05/03/24 Furosemide (Lasix) 20 Mg Tb, 4 TAB PO BID for 30 Days, #240 TAB 3 Refills Prov:[facility] 05/03/24 Spironolactone (Aldactone) 25 Mg Tab, 50 MG PO DAILY for 30 Days, #60 TAB Prov:[facility] 05/03/24 Gabapentin (Gabapentin) 300 Mg Cap, 300 MG PO DAILY for 30 Days, #30 CAP Prov:[facility] 05/03/24 Carvedilol (COREG) 3.125 Mg Tab, 6.25 MG PO Q12HR for 30 Days, #120 TAB Prov:[facility] 05/03/24 Atorvastatin Calcium (ATORVASTATIN CALCIUM) 20 Mg Tab, 40 MG PO HS for 30 Days, #30 TAB Prov:[facility] 05/03/24 Aspirin (Aspirin Low Dose) 81 Mg Tab, 81 MG PO DAILY for 30 Days, #30 TAB [facility]/03/24 Reported Medications Spironolactone (Aldactone) 50 Mg Tab, 1 TAB PO DAILY, #30 TAB 3 Refills 07/02/23 Carvedilol (Coreg) 3.125 Mg Tab, PO, TAB 06/28/22 Atorvastatin Calcium (Lipitor) 10 Mg Tab, PO, TAB 06/28/22 Gabapentin (Gabapentin) 300 Mg Cap, 300 MG PO DAILY for 30 Days, MG 09/02/21 Furosemide (Furosemide) 80 Mg Tab, 1 TAB PO BID, #180 TAB 3 Refills 09/02/21 Aspirin (Aspirin Low Dose) 81 Mg Tab, 1 TAB PO DAILY 04/30/21 Current Medications Current Medications Medications (Trade) Dose Ordered Sig/Conner Route PRN Reason Start Time Stop Time Status Last Admin Enoxaparin Sodium (Lovenox) 90 mg Q12H SC 10/01/24 03:00 Aspirin (Ecotrin Enteric Coated Tablet) 81 mg DAILY PO 10/01/24 10:00 Atorvastatin Calcium (Lipitor) 40 mg HS PO 09/30/24 22:00 Gabapentin (Neurontin Capsule) 300 mg HS PO 09/30/24 22:00 Atorvastatin Calcium (Lipitor) 40 mg HS PO 09/30/24 22:00 09/30/24 16:02 DC Carvedilol (Coreg Tablet) 6.25 mg BID PO 09/30/24 22:00 Future hold 09/30/24 17:32 Morphine Sulfate 2 mg Q30MP PRN IV FOR CHEST PAIN 09/30/24 15:45 Acetaminophen (Tylenol Tablet) 325 mg Q4HP PRN PO FOR HEADACHE 09/30/24 15:45 Docusate Sodium (Colace Capsule) 100 mg DAILY PO 10/01/24 10:00 Nitroglycerin (Ntrostat Sublingual) 0.4 mg Q5MINP PRN SL FOR CHEST PAIN 09/30/24 15:45 09/30/24 15:54 DC Ondansetron HCl (Zofran) 4 mg Q4HP PRN IV NAUSEA / VOMITING 09/30/24 15:45 Nitroglycerin (Ntrostat Sublingual) 0.4 mg Q5MINP PRN SL FOR CHEST PAIN 09/30/24 15:45 Diagnostic Test (Pha) (Accu-Chek Comfort Curve T) 1 strip ACHS 09/30/24 17:00 09/30/24 17:00 Insulin Human Regular (InsuLIN R) ACHS SC 09/30/24 17:00 09/30/24 18:25 Dextrose 50 ml UD PRN IV Blood Sugar LESS THAN 60 09/30/24 15:45 Ceftriaxone Sodium 50 ml @ 100 mls/hr DAILY@09 IV 10/01/24 09:00 09/30/24 19:07 DC Azithromycin 250 ml @ 125 mls/hr DAILY IV 10/01/24 10:00 09/30/24 19:07 DC Vancomycin HCl 0 ml @ 0 mls/hr UD IV 09/30/24 19:15 Piperacillin Sod/ Tazobactam Sod 100 ml @ 25 mls/hr Q8H IV 10/01/24 00:00 Propofol 100 ml @ 2.628 mls/ hr Q24H IV 09/30/24 19:15 Midazolam HCl 50 ml @ 1 mls/hr Q24H IV 09/30/24 19:15 Vasopressin 20 units/Sodium Chloride 100 ml @ 9 mls/hr Q11H7M IV 09/30/24 19:45 Norepinephrine Bitartrate 250 ml @ 3.75 mls/hr Q24H IV 09/30/24 20:00 09/30/24 19:11 Pantoprazole Sodium (Protonix) 40 mg DAILY IV 10/01/24 10:00 Review of Systems onstitutional: No: Fever, Chills, Sweats, Weakness, Malaise, Other Eyes: No: Pain, Vision change, Conjunctivae inflammation, Eyelid inflammation, Other, Redness ENT: No: Ear pain, Ear discharge, Nose pain, Nose discharge, Nose congestion, Mouth pain, Mouth swelling, Throat pain, Throat swelling, Other Respiratory: No: Cough, Dry, Shortness of breath, SOB with excertion, Wheezing, Hemoptysis, Pleuritic Pain, Sputum, Wheezing, Other Cardiovascular: Chest Pain; No: Palpitations, Orthopnea, Paroxysmal Noc. Dyspnea, Edema, Lt Headedness, Other Gastrointestinal: No: Nausea, Vomiting, Abdominal Pain, Diarrhea, Constipation, Melena, Hematochezia, Other Genitourinary: No Dysuria, No Frequency, No Incontinence, No Hematuria, No Retention, No Other Musculoskeletal: No: other, neck pain, shoulder pain, arm pain, back pain, hand pain, leg pain, foot pain Skin: No: Rash, Lesions, Jaundice, Bruising, Other Neurological: Other (Dizziness); No: Weakness, Numbness, Incoordination, Change in speech, Confusion, Seizures Vital Signs Vital Signs Date Time Temp Pulse Resp B/P (MAP) Pulse Ox O2 Delivery O2 Flow Rate FiO2 09/30/24 20:14 95 22 127/82 (97) 95 50 09/30/24 19:00 Mechanical Ventilator+ 09/30/24 15:30 98.2 98.2 09/30/24 13:36 0 Physical Exam GENERAL: Ill appearing, intubated on ventilator. EYES: PERRL, EOMI. Anicteric. HENT: Moist mucous membranes. LUNGS: Transmitted breath sounds bilaterally. Decreased air entry bilaterally. CARDIOVASCULAR: Irregular rate and rhythm. ABDOMEN: Soft, non-tender and non-distended. EXTREMITIES: No edema. SKIN: Warm, dry. Labs/Diagnostic Data Labs Test 09/30/24 19:48 09/30/24 18:34 09/30/24 18:20 09/30/24 12:38 Range/Units Blood Gas Specimen Type Arterial Blood Gas Sample Site Arterial line Blood Gas Patient Temperature 37.0 Arterial Blood Date Drawn [id number] Arterial Blood pH 7.178 *L 7.350-7.450 Arterial Blood Partial Pressure CO2 38.1 35.0-48.0 mmHg Arterial Blood Partial Pressure O2 280.5 H 83.0-108.0 mmHg Arterial Blood HCO3 13.8 L 21.0-28.0 mmol/L Arterial Blood Oxygen Saturation 99.3 H 94.0-98.0 % Arterial Blood Base Excess -13.8 L -2.0-3.0 mmol/L Arterial Blood Oxyhemoglobin 98.2 H 94.0-98.0 % Arterial Blood Carboxyhemoglobin 0.5 0.5-1.5 % Arterial Blood Methemoglobin 0.6 0.0-1.5 % Alexander Test N/a Blood Gas Total Hemoglobin 17.80 H 13.5-17.5 g/dL Blood Gas Set Respiration Rate 18.0 Blood Gas Modality Vent - ac FiO2 % 100.0 Blood Gas Tidal Volume 500.0 Blood Gas PEEP or CPAP 5.0 Specimen Drawn By Rn Blood Gas Critical Value Read Back Yes Blood Gas Notified Whom dontae Stacy Blood Gas Notified Time [id number] Blood Gas Notified By Troponin I High Sensitivity 451 *H </=54 ng/L POC Glucose 234 H 70-106 mg/dl White Blood Count 9.3 4.4-10.8 10^3/uL Red Blood Count 5.41 4.5-5.90 10^6/uL Hemoglobin 18.0 H 13.5-17.5 g/dL Hematocrit 54.3 H 41.0-53.0 % Mean Corpuscular Volume 100.4 H 80.0-100.0 fL Mean Corpuscular Hemoglobin 33.2 H 28.0-32.0 pg Mean Corpuscular Hemoglobin Concent 33.1 32.0-36.0 g/dL Red Cell Distribution Width 16.0 H 11.8-14.3 % Platelet Count 166 140-450 10^3/uL Mean Platelet Volume 8.9 6.9-10.8 fL Neutrophils (%) (Auto) 74.7 37.0-80.0 % Lymphocytes (%) (Auto) 10.0 10.0-50.0 % Monocytes (%) (Auto) 14.7 H 0.0-12.0 % Eosinophils (%) (Auto) 0.1 0.0-7.0 % Basophils (%) (Auto) 0.5 0.0-2.0 % Neutrophils # (Auto) 7.0 1.6-8.6 10 ^3/uL Lymphocytes # (Auto) 0.9 0.4-5.4 10 ^3/uL Monocytes # (Auto) 1.4 H 0-1.3 10 ^3/uL Eosinophils # (Auto) 0 0-0.8 10 ^3/uL Basophils # (Auto) 0 0-0.2 10 ^3/uL Nucleated Red Blood Cells 0.2 % Prothrombin Time 17.2 H 9.3-11.8 sec Prothrombin Time INR 1.71 H 0.9-1.15 Sodium Level 134 L 136-145 mmol/L Potassium Level 4.7 3.5-5.1 mmol/L Chloride Level 98 98-107 mmol/L Carbon Dioxide Level 26 20-31 mmol/L Anion Gap 10 5-15 Blood Urea Nitrogen 36 H 9-23 mg/dL Creatinine 2.41 H 0.700-1.30 mg/dL Glomerular Filtration Rate Calc 30 >90 mL/min BUN/Creatinine Ratio 14.9 10.0-20.0 Serum Glucose 198 H 74-106 mg/dL Calcium Level 9.9 8.7-10.4 mg/dL Phosphorus Level 4.9 2.4-5.1 mg/dL Magnesium Level 1.6 1.6-2.6 mg/dL Thyroid Stimulating Hormone (TSH) 2.42 0.55-4.78 uIU/mL Assessment Chest pain. NSTEMI. Atrial Fibrillation with RVR. CIARAN. Community acquired pneumonia. Acute on chronic systolic heart failure EF 10%. DM2 with hyperglycemia. Constipation. Anxiety. Acute respiratory failure. Plan/Recommendation I agree with your ongoing assessment and care of plan. Echocardiogram. Aspirin, Lipitor. DVT prophylactics. Morphine for pain management. Vasopressors for hemodynamic support. IV antibiotics as ordered. Additional plan as per the hospital course. Critical care time of 90 minutes provided to include time spent evaluation of patient at bedside, when appropriate patient/family education for diagnosis, treatment plan, review of pertinent medical information and discussion of care with specialty providers and PCP. Mechanical ventilator parameters, treatment and adjustments have personally been reviewed by me and treatment plan by instrumentation engineering technician has also been reviewed. Plan discussed with: Other DESHAUN PETERSON MD Sep 30, 2024 21:16
[2024-10-01] VITALS (82 sets, daily range): BP systolic 89–150; BP diastolic 56–102; PULSE 7–86; RESP 15–23; TEMP 98.1–100.8; O2SAT 94–100
[2024-10-01 00:16] LABS: Anion Gap 8 (5-15); Carbon Dioxide 26 mmol/L (20-31); Chloride 100 mmol/L (98-107)
[2024-10-01 00:18] LABS: Calcium 7.9 mg/dL (8.7-10.4); Sodium 134 mmol/L (136-145)
[2024-10-01 00:19] LABS: Potassium 5.8 mmol/L (3.5-5.1)
[2024-10-01 00:22] LABS: BUN/Creatinine Ratio 15.2 (10.0-20.0)
[2024-10-01] MEDS: PIPERACILLIN-TAZOB 3.375GM 100 ML IV SCH (00:30)
[2024-10-01 00:31] LABS: Blood Urea Nitrogen 43 mg/dL (9-23); Glucose 184 mg/dL (74-106)
[2024-10-01] MEDS: DEXTROSE (50%) 50ML SYRG IV ONE (01:15)
[2024-10-01] MEDS: SODIUM ZIRCONIUM CYCL 10 GM PAK PO ONE (01:15)
[2024-10-01] MEDS: InsuLIN REG 1unit/0.01ml Soln (100units/ml) IV ONE (01:15)
[2024-10-01 01:39] LABS: Amphetamine Screen, Urine Pos (NEGATIVE); Barbiturate Scree,Urine Neg (NEGATIVE); Benzodiazephine Screen, Urine Neg (NEGATIVE); Cannabinoid Screen, Urine Neg (NEGATIVE); Cocaine Screen, Urine Neg (NEGATIVE); Opiate Scree,Urine Neg (NEGATIVE); Phencyclidine Screen, Urine Neg (NEGATIVE)
[2024-10-01 01:46] LABS: Creatinine, Urine 241.6 mg/dL (30.0-125.0)
[2024-10-01] MEDS: CALCIUM GLUC 1,000mg/50ml-NS 50 ML IV ONE (02:05)
[2024-10-01] MEDS: SODIUM BICARB 8.4% 50Meq/50ml SYR Vial IV ONE (02:06)
[2024-10-01] MEDS: ENOXAPARIN SOD 100 MG/1 ML SYRINGE SC SCH (03:00)
[2024-10-01 03:15] LABS: Base Excess -4.1 mmol/L (-2.0-3.0)
[2024-10-01 05:41] LABS: Basophils # (auto) 0 10 ^3/uL (0-0.2); Basophils % (auto) 0.3 % (0.0-2.0); Eosinophils # (auto) 0 10 ^3/uL (0-0.8); Eosinophils % (auto) 0.1 % (0.0-7.0); Hematocrit 52.7 % (41.0-53.0); Hemoglobin 17.2 g/dL (13.5-17.5); Lymphocytes # (auto) 1.9 10 ^3/uL (0.4-5.4); Lymphocytes % (auto) 11.3 % (10.0-50.0); Mean Corpuscular Hemoglobin 32.8 pg (28.0-32.0); Mean Corpuscular Hgb Conc. 32.6 g/dL (32.0-36.0); Mean Corpuscular Volume 100.8 fL (80.0-100.0); Monocytes # (auto) 1.8 10 ^3/uL (0-1.3); Monocytes % (auto) 10.7 % (0.0-12.0); Neutrophils # (auto) 12.9 10 ^3/uL (1.6-8.6); Neutrophils % (auto) 77.6 % (37.0-80.0); Nucleated Red Blood Cells % 0.8 %; Platelet Count (auto) 133 10^3/uL (140-450); Red Blood Cells 5.23 10^6/uL (4.5-5.90); Red Cell Distribution Width 16.1 % (11.8-14.3); White Blood Cell 16.6 10^3/uL (4.4-10.8)
[2024-10-01 05:43] LABS: Chloride 100 mmol/L (98-107); Sodium 140 mmol/L (136-145)
[2024-10-01 05:44] LABS: Anion Gap 11 (5-15); Carbon Dioxide 29 mmol/L (20-31)
[2024-10-01 05:50] LABS: BUN/Creatinine Ratio 14.6 (10.0-20.0); Glucose 102 mg/dL (74-106)
--- NOTE | 2024-10-01 05:50 | DVH ---
CHEST RADIOGRAPH Indication: line placement Technique: Single frontal view of the chest was obtained COMPARISON: XY CHEST XRAY 1 VIEW on DOS: 09/30/24, XY CHEST PORTABLE on DOS: 09/30/24, XY CHEST PORTABL E on DOS: 07/01/23, XY CHEST PORTABLE on DOS: 06/10/23, XY CHEST PORTABLE on DOS: 05/14/23 FINDINGS: Lines and Tubes: Endotracheal tube and enteric catheter in satisfactory position. Lungs: Clear Pleura: No effusion. No pneumothorax. Cardiomediastinal contours: Cardiomegaly Bones: Unremarkable IMPRESSION: Endotracheal tube and enteric catheter in satisfactory position.
[2024-10-01 06:00] LABS: Blood Urea Nitrogen 47 mg/dL (9-23); Calcium 8.6 mg/dL (8.7-10.4); Potassium 3.1 mmol/L (3.5-5.1)
--- NOTE | 2024-10-01 07:47 | DVHPNRES ---
Progress Note Date Seen: Oct 01, 2024 Resident Creating Document: MINISTERIO NAILS RESIDENT Has the PT tested + for MRSA If YES, has PT been informed?: No Medical Necessity Reason Pt with a Central, PICC or Fol: No Medical Necessity Reason History of Present Illness 59-year-old male with a past medical history of congestive heart failure (EF 10% per echo from April 2024), diabetes mellitus, hypertension, hyperlipidemia, and anxiety, who presents with chest pain, dizziness, and generalized weakness ongoing for the past three days. The patient reports associated nausea without vomiting, increased anxiety, poor sleep, dry mouth, and constipation with no bowel movement for three days. He also notes dark danish urine output. The patient states he has been compliant with his medications, including Lasix and Aldactone, but has not seen his primary care physician or pharmaceutical detailer (Dr. Clarke) in over a year. On arrival to the ED, he was noted to be tachycardic with atrial fibrillation, heart rate peaking at 155 bpm. After administration of IV metoprolol, his heart rate decreased to 120 bpm. Laboratory evaluation revealed hemoconcentration with hemoglobin of 18.0, sodium 134, creatinine 2.11 (elevated from baseline), and glucose of 198. Serial troponins were elevated without dynamic changes. EKG showed atrial fibrillation without ST-elevation lovenox was provided 1mg/kg and er informed to call stat call to pt cards Dr. Clarke. Chest X-ray demonstrated atelectasis, and findings concerning for pneumonia. A Lovenox dose was given in the ED for pe ppx The patient appeared volume depleted on exam d/t ciaran and elevated hemoglobin and was given a 1L IV fluid bolus cautiously due to his low EF. Given his history of severe systolic heart failure, atrial fibrillation with RVR, acute kidney injury, and suspected pneumonia, the patient will be admitted for further management. A VQ scan has been ordered to rule out pulmonary embolism, and a repeat echocardiogram will be obtained to reassess cardiac function. Insulin sliding scale initiated for hyperglycemia. Home Coreg has been resumed. cards to be consulted started on asa and atorvastatin Past Medical History: see hpi above Past Surgical History: see hpi above Family History:Reviewed, non-contributory to the management of this case. Past Social History:Patient states he still smoke but denies drug or alcohol use PN 10/01/2024 Objective vital signs Vital Sign Date Time Temp Pulse Resp B/P (MAP) Pulse Ox O2 Delivery O2 Flow Rate FiO2 10/01/24 07:00 98.8 70 22 100/66 (77) 100 98.8 10/01/24 06:08 30 09/30/24 19:30 Mechanical Ventilator+ 09/30/24 13:36 0 Total Intake and Output 09/30/24 09/30/24 10/01/24 15:00 23:00 07:00 Intake Total 1648.75 ml 325.00 ml Balance 1648.75 ml 325.00 ml medications Current Medications Medications Dose Ordered Sig/Conner Route Start Time Stop Time Status Last Admin Dose Admin Enoxaparin Sodium 90 mg Q12H SC 10/01/24 03:00 Aspirin 81 mg DAILY PO 10/01/24 10:00 Atorvastatin Calcium 40 mg HS PO 09/30/24 22:00 Gabapentin 300 mg HS PO 09/30/24 22:00 Carvedilol 6.25 mg BID PO 09/30/24 22:00 Hold 09/30/24 17:32 6.25 MG Morphine Sulfate 2 mg Q30MP PRN IV 09/30/24 15:45 Docusate Sodium 100 mg DAILY PO 10/01/24 10:00 Ondansetron HCl 4 mg Q4HP PRN IV 09/30/24 15:45 Nitroglycerin 0.4 mg Q5MINP PRN SL 09/30/24 15:45 Diagnostic Test (Pha) 1 strip ACHS 09/30/24 17:00 10/01/24 07:09 1 STRIP Insulin Human Regular ACHS SC 09/30/24 17:00 09/30/24 18:25 4 UNITS Dextrose 50 ml UD PRN IV 09/30/24 15:45 10/01/24 04:41 50 ML Vancomycin HCl 0 ml @ 0 mls/hr UD IV 09/30/24 19:15 Piperacillin Sod/ Tazobactam Sod 100 ml @ 25 mls/hr Q8H IV 10/01/24 00:00 10/01/24 00:30 25 MLS/HR Propofol 100 ml @ 2.628 mls/ hr Q24H IV 09/30/24 19:15 Midazolam HCl 50 ml @ 1 mls/hr Q24H IV 09/30/24 19:15 09/30/24 22:00 1 MLS/HR Vasopressin 20 units/Sodium Chloride 100 ml @ 9 mls/hr Q11H7M IV 09/30/24 19:45 Norepinephrine Bitartrate 250 ml @ 3.75 mls/hr Q24H IV 09/30/24 20:00 09/30/24 19:11 18.75 MLS/HR Pantoprazole Sodium 40 mg DAILY IV 10/01/24 10:00 Spironolactone 50 mg DAILY PO 10/01/24 10:00 Acetaminophen 650 mg Q6HP PRN NG 10/01/24 02:00 laboratory and microbiology Laboratory Tests 10/01/24 05:08 Test 10/01/24 05:08 Range/Units Serum Glucose 102 74-106 mg/dL Problem List/Assessment/Plan Problem List/Assessment/Plan Assessment Sepsis due to PNA acute chest pain likely nstemi ekg no stemi trop positive x3i ordered Cards Dr. Clarke pt cards fu recs ordered coreg asa atorvastatin ordered Echocardiogram follow-up results ordered vq scan to eval for pe ordered lovenox 1mg/kg for now ordered morphine as needed for pain, ordered nitro prn acute Atrial Fibrillation with RVR provided metoprolol iv x 1 dose Plan: Continue beta-genie (Coreg) Monitor heart rate and rhythm Anticoagulation with Lovenox for now Acute Kidney Injury likely pre-renal from dehydration and diuretics Plan: Monitor renal function daily Avoid further nephrotoxic agents Adjust diuretics carefully after stabilization ordered urine sodium and crea to check fena acute bacterial community acquired Pneumonia suspected based on CXR Plan: Start empiric IV antibiotics (ceftriaxone + azithromycin) Monitor WBC and fever Supplemental O2 if needed Acute on Chronic Systolic Heart Failure EF 10%,does not appear decompensated on my exam appears more dry gently provided ns monitor uncontrolled Hyperglycemia known DM2, uncontrolled Plan: Initiate insulin sliding scale rounding team to order Check HbA1c acute Constipation secondary to diuretics and dehydration Plan: Start MiraLAX and docusate Monitor bowel movements Consider PRN suppository if no BM in 48 hrs chronic Anxiety exacerbated by current illness Plan: Supportive care, sleep hygiene FEN/ppx IVF: Hold further fluids unless needed Monitor BMP, replete electrolytes Cardiac diet, diabetic modifications VTE: Lovenox continued GI: Pantoprazole 40 mg IV daily Fall: Fall precautions due to dizziness and CIARAN Plan discussed with: Patient MINISTERIO NAILS RESIDENT Oct 01, 2024 07:47
[2024-10-01] MEDS: VASOPRESSIN 20 UNITS in SODIUM CHL 0.9% 99 ML IV SCH (07:52)
[2024-10-01] MEDS: PROPOFOL 100 ML IV SCH (07:52)
[2024-10-01] MEDS ORDERED: cefTRIAXone 1GM/50ML D5W 50 ML IV SCH (09:00)
--- NOTE | 2024-10-01 09:05 | ECG ---
[facility] Test Date: 2024-09-30 Test Time: 12:34:12 Pat Name: TANVI HU Department: ER Room: [address] [place] [address] A Gender: M Network/Telecom Engineer: JESSICA : [id number] Requested By: JOSE SOSA Order Number: [id number] Reading MD: Bayron Paul Measurements Intervals [place] Rate: 151 P: 101 KS: 86 QRS: -114 QRSD: 135 T: -66 QT: 304 QTc: 482 Interpretive Statements Sinus tachycardia RBBB and LAFB Nonspecific T abnormalities, lateral leads Electronically Signed On 10-01-2024 13:17:03 PDT by Bayron Paul Please click the below link to view image of tracing.
--- NOTE | 2024-10-01 09:12 | DVH ---
US BiLat Lower DVT HISTORY: eval for dvt COMPARISON: US BILAT LOWER DVT on DOS: 08/07/22 TECHNIQUE: Duplex Doppler evaluation of the deep venous system of the lower extremity from the common femoral veins, superficial femoral vein, great saphenous vein, deep femoral vein, popliteal vein, an d calf veins, including color Doppler and spectral/pulsed waveform analysis, was performed. FINDINGS: Right: - Common femoral vein: Compressible - Deep femoral vein: Compressible - Femoral vein: Compressible - Popliteal vein: Compressible - Posterior tibial vein: Waveforms present - Other: Nothing Left: - Common femoral vein: Compressible - Deep femoral vein: Compressible - Femoral vein: Compressible - Popliteal vein: Compressible - Posterior tibial vein: Waveforms present - Other: Nothing IMPRESSION: No right or left lower extremity deep venous thrombosis.
--- NOTE | 2024-10-01 09:33 | DVH ---
Bilateral Lower Extremity Arterial Duplex Clinical History: eval for arterial occlusion Comparison: US BILAT LOW EXT ART DUPLEX on DOS: 08/07/22 Technique: Duplex Doppler evaluation including color Doppler and spectral/pulsed waveform analysis of the lower extremity arteries was performed. Findings: RIGHT: Peak systolic velocities are as follows: MOTOR MAN 40 cm/s Deep femoral 43 cm/s SFA proximal 40 cm/s SFA mid-portion 36 cm/s SFA distal 27 cm/s Popliteal 25 cm/s Posterior tibial 27 cm/s Anterior tibial 26 cm/s Peroneal nv cm/s Dorsalis pedis 17 cm/s The waveforms are triphasic with diastolic flow. LEFT: Peak systolic velocities are as follows: MOTOR MAN 40 cm/s Deep femoral 43 cm/s SFA proximal 43 cm/s SFA mid-portion 44 cm/s SFA distal 41 cm/s Popliteal 28 cm/s Posterior tibial 23 cm/s Anterior tibial 22 cm/s Peroneal nv cm/s Dorsalis pedis 16 cm/s The waveforms are triphasic with diastolic flow. IMPRESSION: No hemodynamically significant stenosis based on peak systolic velocity criteria. REFERENCE VALUES, [facility] ([facility]) vascular Imaging Lab Criteria: Peak systolic velocity ranges (in cm/sec) are as follows: <150 cm/s - <20 % stenosis 150-200 cm/s - 20-49% stenosis 200-300 cm/s - 50-75% stenosis >300 cm/s -> 75% stenosis
[2024-10-01] MEDS: DOCUSATE SOD 100 MG CAP PO SCH (09:43)
[2024-10-01] MEDS: SPIRONOLACTONE 25 MG TAB PO SCH (09:43)
[2024-10-01] MEDS ORDERED: ASPirin-EC 81 mg tab PO SCH ×2 (10:00)
[2024-10-01] MEDS ORDERED: CARVEDILOL 3.125 MG TAB PO SCH (10:00)
[2024-10-01] MEDS ORDERED: AZITHROMYCIN 500MG/ 250ML 250 ML IV SCH (10:00)
[2024-10-01] MEDS ORDERED: FUROSEMIDE 20 MG TAB PO SCH (10:00)
[2024-10-01] MEDS ORDERED: GABAPENTIN 300 MG CAP PO SCH ×2 (10:00)
[2024-10-01] MEDS: ASPirin-EC 81 mg tab PO SCH (10:17)
[2024-10-01] MEDS: PANTOPRAZOLE 40 MG/10 ML VIAL INJ IV SCH (10:17)
[2024-10-01] MEDS ORDERED: Jevity 1.2 Cal/Fiber 1 Liter GT SCH (11:00)
--- NOTE | 2024-10-01 11:09 | DVHPN2 ---
Subjective Patient was intubated and sedated Reviewed: Care Plan, H&P, Labs, Medications Changes from previous H/P or p: No Changes General: Per HPI Eyes: No Pain, No Vision change, No Conjunctivae inflammation, No Eyelid inflammation, No Other, No Redness ENT: No Ear pain, No Ear discharge, No Nose pain, No Nose discharge, No Nose congestion, No Mouth pain, No Mouth swelling, No Throat pain, No Throat swelling, No Other Cardiovascular: Chest Pain; No Palpitations, No Orthopnea, No Paroxysmal Noc. Dyspnea, No Edema, No Lt Headedness, No Other Respiratory: No Cough, No Dry, No Shortness of breath, No SOB with excertion, No Wheezing, No Hemoptysis, No Pleuritic Pain, No Sputum, No Other Gastrointestinal: No Nausea, No Vomiting, No Abdominal Pain, No Diarrhea, No Constipation, No Melena, No Hematochezia, No Other Genitourinary: No Dysuria, No Frequency, No Incontinence, No Hematuria, No Retention, No Other Musculoskeletal: No other, No neck pain, No shoulder pain, No arm pain, No back pain, No hand pain, No leg pain, No foot pain Skin: No Rash, No Lesions, No Jaundice, No Bruising, No Other Objective Vitals Vital Signs Date Time Temp Pulse Resp B/P (MAP) Pulse Ox O2 Delivery O2 Flow Rate FiO2 10/01/24 10:30 73 22 107/66 (80) 100 108/76 (87) 10/01/24 10:00 30 10/01/24 08:00 98.1 98.1 10/01/24 07:15 Mechanical Ventilator+ 09/30/24 13:36 0 Intake/Output Intake and Output 10/01/24 06:59 Intake Total 1973.75 ml Balance 1973.75 ml Intake IV Total 1973.75 ml General Appearance: Other (Chemically sedated) HEENT: Atraumatic, PERRLA Cardiovascular: Normal S1, Normal S2 Abdomen: Normal bowel sounds, Soft, No tenderness Musculoskeletal: Other (Motor removed) Skin: Dry, Intact Psych/Mental Status: Other (Unable to assess) Medications Current Medications Medications Dose Ordered Sig/Conner Route Start Time Stop Time Status Last Admin Dose Admin Enoxaparin Sodium 90 mg Q12H SC 10/01/24 03:00 Aspirin 81 mg DAILY PO 10/01/24 10:00 10/01/24 10:17 81 MG Atorvastatin Calcium 40 mg HS PO 09/30/24 22:00 Gabapentin 300 mg HS PO 09/30/24 22:00 Carvedilol 6.25 mg BID PO 09/30/24 22:00 Hold 09/30/24 17:32 6.25 MG Morphine Sulfate 2 mg Q30MP PRN IV 09/30/24 15:45 Docusate Sodium 100 mg DAILY PO 10/01/24 10:00 Ondansetron HCl 4 mg Q4HP PRN IV 09/30/24 15:45 Nitroglycerin 0.4 mg Q5MINP PRN SL 09/30/24 15:45 Diagnostic Test (Pha) 1 strip ACHS 09/30/24 17:00 10/01/24 07:09 1 STRIP Insulin Human Regular ACHS SC 09/30/24 17:00 09/30/24 18:25 4 UNITS Dextrose 50 ml UD PRN IV 09/30/24 15:45 10/01/24 04:41 50 ML Vancomycin HCl 0 ml @ 0 mls/hr UD IV 09/30/24 19:15 Piperacillin Sod/ Tazobactam Sod 100 ml @ 25 mls/hr Q8H IV 10/01/24 00:00 10/01/24 08:02 25 MLS/HR Propofol 100 ml @ 2.628 mls/ hr Q24H IV 09/30/24 19:15 Midazolam HCl 50 ml @ 1 mls/hr Q24H IV 09/30/24 19:15 10/01/24 10:16 9 MLS/HR Vasopressin 20 units/Sodium Chloride 100 ml @ 9 mls/hr Q11H7M IV 09/30/24 19:45 Norepinephrine Bitartrate 250 ml @ 3.75 mls/hr Q24H IV 09/30/24 20:00 09/30/24 19:11 18.75 MLS/HR Pantoprazole Sodium 40 mg DAILY IV 10/01/24 10:00 10/01/24 10:17 40 MG Spironolactone 50 mg DAILY PO 10/01/24 10:00 Acetaminophen 650 mg Q6HP PRN NG 10/01/24 02:00 Laboratory Results Laboratory Tests 10/01/24 05:08 Chemistry Test 09/30/24 12:38 09/30/24 23:32 10/01/24 05:08 Calcium Level 9.9 mg/dL (8.7-10.4) 7.9 mg/dL (8.7-10.4) L 8.6 mg/dL (8.7-10.4) L Magnesium Level 1.6 mg/dL (1.6-2.6) Phosphorus Level 4.9 mg/dL (2.4-5.1) Coagulation Test 09/30/24 12:38 Prothrombin Time 17.2 sec (9.3-11.8) H Prothrombin Time INR 1.71 (0.9-1.15) H HgA1c, TSH Test 09/30/24 12:38 Thyroid Stimulating Hormone (TSH) 2.42 uIU/mL (0.55-4.78) Urinalysis Test 10/01/24 00:36 Urine Creatinine 241.60 mg/dL (30.0-125.0) H Urine Sodium 35 mmol/L (40-220) L Blood Gas Results Test 09/30/24 19:48 10/01/24 03:09 Arterial Blood pH 7.178 (7.350-7.450) 7.377 (7.350-7.450) FiO2 % 100.0 50.0 Labs and/or images reviewed: Labs reviewed by me, Image(s) reviewed by me Assessment/Plan Assessment/Plan Impression: -NSTEMI, probably type 2 secondary to amphetamine use -amphetamine use -cardiomyopathy -acute on chronic systolic heart failure with ejection fraction 10% -acute hypoxic respiratory failure -AFib/flutter with RVR -cardiogenic shock -acute kidney injury, vasomotor nephropathy -underlying CKD stage IIIb/four -leukocytosis, probable sirs -hypoglycemia Plan: -cardiology consultation: Recommendations appreciated -nephrology consultation placed -continue current ventilator settings -continue current sedation -norepinephrine drip to keep map greater than 65 mmHg -PUD, DVT prophylaxis -therapeutic anticoagulation with Lovenox -change antibiotic therapy to doxycycline and cefepime given acute renal failure -titrate FiO2 to keep saturation greater than 93%. Currently on 30% FiO2 -start tube feeding with Jevity -repeat labs, chest x-ray, ABG in a.m. Critical care time spent with patient discussing and formulating plan of care: 40 minutes. This does not include time spent performing procedures. This medical document was created using an electronic medical record system with [employer] dictation system. Although this document has been carefully reviewed, there may still be some phonetic and typographical errors. These areas are purely typographical due to imperfections of the software programs, and do not reflect any compromise in the patient's medical care. Plan discussed with: Patient, Other (RN) My Orders Orders - MARK LILLY NP Procedure Category Date Status Time *Dr. Benjamín White CONS 10/01/24 Transmitted -[place] 10:59 Cefepime 1 Gm PHA 10/01/24 Transmitted 11:00 Doxycycline PHA 10/01/24 Transmitted 100mg/100ml 11:00 Basic Metabolic Panel LAB 10/02/24 Verified 04:00 Chest Portable XY 10/02/24 Transmitted 04:00 Magnesium LAB 10/02/24 Verified 04:00 Abg W/ Co-Ox RT 10/02/24 Transmitted 04:00 Enoxaparin Sodium PHA 10/02/24 Transmitted (Lovenox) 10:00 Urine Bacterial MARY 10/01/24 Transmitted Culture 10:59 Nutritional PHA 10/01/24 Transmitted Supplements (Jevity 11:00 Date of Service: Oct 01, 2024 Billing Provider: MARK LILLY NP Common Visit Codes: [id number] CARE 30-74 MIN MARK LILLY NP Oct 01, 2024 11:09
[2024-10-01] MEDS: DOXYCYCLINE 100MG/100ML 100 ML IV SCH (12:20)
[2024-10-01] MEDS: CEFEPIME 1GM/ 50ML 50 ML IV SCH (12:20)
[2024-10-01] MEDS: ACETAMINOPHEN 650 mg PER 20.3 mL UD NG PRN (15:00)
[2024-10-01] MEDS: SODIUM CHLORIDE 0.9% 1,000 ML IV SCH (15:44)
--- NOTE | 2024-10-01 15:56 | DVHINCON2 ---
Date of service: Oct 01, 2024 Reason for Consultation Acute kidney injury History of Present Illness 59-year-old male with noted past medical history of significant polysubstance abuse who presents to the hospital with altered mental state his ER course is notable for acute distress status post intubation. Nephrology consulted due to elevated creatinine level. Past Medical History HFrEF, LVEF 10-15%, hypertension, diabetic neuropathy, hyperlipidemia, PVD, CKD stage IIIA, polysubstance abuse Allergies: Coded Allergies: NO KNOWN ALLERGIES (Unverified , 09/24/22) Home Meds Active Scripts Aspirin (Aspirin Low Dose) 81 Mg Tab, 81 MG PO DAILY for 30 Days, #30 TAB [facility] 05/[facility]/24 Carvedilol (Carvedilol) 6.25 Mg Tab, 1 TAB PO BID for 30 Days, #60 TAB 5 Refills Prov:[facility] 05/03/24 Furosemide (Furosemide 80 mg) 1 Tab Tab, 1 TAB PO BID for 30 Days, #60 TAB [facility] 05/03/24 Gabapentin (Gabapentin) 300 Mg Cap, 300 MG PO DAILY for 30 Days, #30 CAP Prov:[facility] 05/03/24 Levofloxacin Hemihydrate (LEVOFLOXACIN) 750 Mg Tab, 750 MG PO DAILY for 5 Days, #5 TAB Prov:[facility] 05/03/24 Spironolactone (Spironolactone) 50 Mg Tab, 50 MG PO DAILY for 30 Days, #30 TAB Prov:[facility] 05/03/24 Atorvastatin Calcium (ATORVASTATIN CALCIUM) 40 Mg Tab, 40 MG PO HS for 30 Days, #30 TAB Prov:[facility] 05/03/24 Levofloxacin Hemihydrate (LEVOFLOXACIN) 750 Mg Tab, 750 MG PO DAILY for 5 Days, #5 TAB Prov:[facility] 05/03/24 Furosemide (Lasix) 20 Mg Tb, 4 TAB PO BID for 30 Days, #240 TAB 3 Refills Prov:[facility] 05/03/24 Spironolactone (Aldactone) 25 Mg Tab, 50 MG PO DAILY for 30 Days, #60 TAB Prov:[facility] 05/03/24 Gabapentin (Gabapentin) 300 Mg Cap, 300 MG PO DAILY for 30 Days, #30 CAP Prov:[facility] 05/03/24 Carvedilol (COREG) 3.125 Mg Tab, 6.25 MG PO Q12HR for 30 Days, #120 TAB Prov:[facility] 05/03/24 Atorvastatin Calcium (ATORVASTATIN CALCIUM) 20 Mg Tab, 40 MG PO HS for 30 Days, #30 TAB Prov:[facility] 05/03/24 Aspirin (Aspirin Low Dose) 81 Mg Tab, 81 MG PO DAILY for 30 Days, #30 TAB Prov:[facility] 05/03/24 Reported Medications Spironolactone (Aldactone) 50 Mg Tab, 1 TAB PO DAILY, #30 TAB 3 Refills 07/02/23 Carvedilol (Coreg) 3.125 Mg Tab, PO, TAB 06/28/22 Atorvastatin Calcium (Lipitor) 10 Mg Tab, PO, TAB 06/28/22 Gabapentin (Gabapentin) 300 Mg Cap, 300 MG PO DAILY for 30 Days, MG 09/02/21 Furosemide (Furosemide) 80 Mg Tab, 1 TAB PO BID, #180 TAB 3 Refills 09/02/21 Aspirin (Aspirin Low Dose) 81 Mg Tab, 1 TAB PO DAILY 04/30/21 Current Medications Current Medications Medications (Trade) Dose Ordered Sig/Conner Route PRN Reason Start Time Stop Time Status Last Admin Enoxaparin Sodium (Lovenox) 90 mg Q12H SC 10/01/24 03:00 10/01/24 11:05 DC Aspirin (Ecotrin Enteric Coated Tablet) 81 mg DAILY PO 10/01/24 10:00 10/01/24 10:17 Atorvastatin Calcium (Lipitor) 40 mg HS PO 09/30/24 22:00 Gabapentin (Neurontin Capsule) 300 mg HS PO 09/30/24 22:00 Atorvastatin Calcium (Lipitor) 40 mg HS PO 09/30/24 22:00 09/30/24 16:02 DC Carvedilol (Coreg Tablet) 6.25 mg BID PO 09/30/24 22:00 Hold 09/30/24 17:32 Docusate Sodium (Colace Capsule) 100 mg DAILY PO 10/01/24 10:00 Diagnostic Test (Pha) (Accu-Chek Comfort Curve T) 1 strip ACHS 09/30/24 17:00 10/01/24 11:34 Insulin Human Regular (InsuLIN R) ACHS SC 09/30/24 17:00 09/30/24 18:25 Ceftriaxone Sodium 50 ml @ 100 mls/hr DAILY@09 IV 10/01/24 09:00 09/30/24 19:07 DC Azithromycin 250 ml @ 125 mls/hr DAILY IV 10/01/24 10:00 09/30/24 19:07 DC Vancomycin HCl 0 ml @ 0 mls/hr UD IV 09/30/24 19:15 10/01/24 11:05 DC Piperacillin Sod/ Tazobactam Sod 100 ml @ 25 mls/hr Q8H IV 10/01/24 00:00 10/01/24 11:05 DC 10/01/24 08:02 Propofol 100 ml @ 2.628 mls/ hr Q24H IV 09/30/24 19:15 Midazolam HCl 50 ml @ 1 mls/hr Q24H IV 09/30/24 19:15 10/01/24 15:12 Vasopressin 20 units/Sodium Chloride 100 ml @ 9 mls/hr Q11H7M IV 09/30/24 19:45 Norepinephrine Bitartrate 250 ml @ 3.75 mls/hr Q24H IV 09/30/24 20:00 09/30/24 19:11 Pantoprazole Sodium (Protonix) 40 mg DAILY IV 10/01/24 10:00 10/01/24 10:17 Aspirin (Ecotrin Enteric Coated Tablet) 81 mg DAILY PO 10/01/24 10:00 09/30/24 23:09 DC Aspirin (Ecotrin Enteric Coated Tablet) 81 mg DAILY PO 10/01/24 10:00 09/30/24 23:10 DC Carvedilol (Coreg Tablet) 6.25 mg Q12HR PO 10/01/24 10:00 09/30/24 23:10 DC Furosemide (Lasix Tablet) 80 mg BID PO 10/01/24 10:00 09/30/24 23:10 DC Gabapentin (Neurontin Capsule) 300 mg DAILY PO 10/01/24 10:00 09/30/24 23:11 DC Gabapentin (Neurontin Capsule) 300 mg DAILY PO 10/01/24 10:00 09/30/24 23:11 DC Spironolactone (Aldactone) 50 mg DAILY PO 10/01/24 10:00 Acetaminophen (Tylenol Solution Oral) 650 mg Q6HP PRN NG PAIN SCALE 1-3 OR TEMP>100.4 10/01/24 02:00 10/01/24 15:00 Cefepime HCl 50 ml @ 12.5 mls/hr DAILY IV 10/01/24 11:00 10/01/24 12:20 Doxycycline Hyclate 100 ml @ 50 mls/hr Q12H IV 10/01/24 11:00 10/01/24 12:20 Enoxaparin Sodium (Lovenox) 90 mg DAILY SC 10/02/24 10:00 Enteral Nutritional Formula (Jevity 1.2 Rodríguez/ Fiber) 1,000 ml 40ML/HR GT 10/01/24 11:00 Sodium Chloride 1,000 ml @ 60 mls/hr [id number] IV 10/01/24 15:00 Family History: FH: heart attack G8 MOTHER Prostate carcinoma G8 FATHER Review of Systems Can not obtain due to critical illness H&P Exam Vital Signs/I&O Vital Sign Date Time Temp Pulse Resp B/P (MAP) Pulse Ox O2 Delivery O2 Flow Rate FiO2 10/01/24 15:23 88/56 10/01/24 15:00 80 22 99 10/01/24 15:00 100.8 10/01/24 14:00 30 10/01/24 07:15 Mechanical Ventilator+ 09/30/24 13:36 0 Intake and Output 09/30/24 10/01/24 19:00 07:00 Intake Total 175 ml 1822.75 ml Balance 175 ml 1822.75 ml Intake IV Total 175 ml 1822.75 ml Physical Exam Middle-aged male Intubated Sedated On pressors Abdomen is soft Multiple bruises over the skin Purple discoloration of bilateral toes No murmur Inman catheter has brown-colored urine Labs/Diagnostic Data Labs/Diagnostic Data Laboratory Tests Test 10/01/24 11:25 10/01/24 05:08 10/01/24 04:29 10/01/24 03:09 Range/Units POC Glucose 55 L 41 *L 70-106 mg/dl White Blood Count 16.6 #H 4.4-10.8 10^3/uL Red Blood Count 5.23 4.5-5.90 10^6/uL Hemoglobin 17.2 13.5-17.5 g/dL Hematocrit 52.7 41.0-53.0 % Mean Corpuscular Volume 100.8 H 80.0-100.0 fL Mean Corpuscular Hemoglobin 32.8 H 28.0-32.0 pg Mean Corpuscular Hemoglobin Concent 32.6 32.0-36.0 g/dL Red Cell Distribution Width 16.1 H 11.8-14.3 % Platelet Count 133 L 140-450 10^3/uL Mean Platelet Volume 9.2 6.9-10.8 fL Neutrophils (%) (Auto) 77.6 37.0-80.0 % Lymphocytes (%) (Auto) 11.3 10.0-50.0 % Monocytes (%) (Auto) 10.7 0.0-12.0 % Eosinophils (%) (Auto) 0.1 0.0-7.0 % Basophils (%) (Auto) 0.3 0.0-2.0 % Neutrophils # (Auto) 12.9 H 1.6-8.6 10 ^3/uL Lymphocytes # (Auto) 1.9 0.4-5.4 10 ^3/uL Monocytes # (Auto) 1.8 H 0-1.3 10 ^3/uL Eosinophils # (Auto) 0 0-0.8 10 ^3/uL Basophils # (Auto) 0 0-0.2 10 ^3/uL Nucleated Red Blood Cells 0.8 % Sodium Level 140 # 136-145 mmol/L Potassium Level 3.1 #L 3.5-5.1 mmol/L Chloride Level 100 98-107 mmol/L Carbon Dioxide Level 29 20-31 mmol/L Anion Gap 11 5-15 Blood Urea Nitrogen 47 H 9-23 mg/dL Creatinine 3.22 H 0.700-1.30 mg/dL Glomerular Filtration Rate Calc 21 >90 mL/min BUN/Creatinine Ratio 14.6 10.0-20.0 Serum Glucose 102 74-106 mg/dL Calcium Level 8.6 L 8.7-10.4 mg/dL Random Vancomycin Level 17.8 H 5-10 ug/mL Blood Gas Specimen Type Arterial Blood Gas Sample Site Arterial line Blood Gas Patient Temperature 37.0 Arterial Blood Date Drawn [id number] Arterial Blood pH 7.377 7.350-7.450 Arterial Blood Partial Pressure CO2 35.0 35.0-48.0 mmHg Arterial Blood Partial Pressure O2 142.0 H 83.0-108.0 mmHg Arterial Blood HCO3 20.1 L 21.0-28.0 mmol/L Arterial Blood Oxygen Saturation 99.0 H 94.0-98.0 % Arterial Blood Base Excess -4.1 L -2.0-3.0 mmol/L Arterial Blood Oxyhemoglobin 97.6 94.0-98.0 % Arterial Blood Carboxyhemoglobin 0.7 0.5-1.5 % Arterial Blood Methemoglobin 0.7 0.0-1.5 % Alexander Test N/a Blood Gas Total Hemoglobin 17.60 H 13.5-17.5 g/dL Blood Gas Set Respiration Rate 22.0 Blood Gas Modality Vent - ac Blood Gas Spontaneous Rate 22 FiO2 % 50.0 Blood Gas Tidal Volume 500.0 Blood Gas Inspiratory Pressure 24.0 Blood Gas PEEP or CPAP 5.0 Specimen Drawn By Test 10/01/24 02:50 10/01/24 01:31 10/01/24 01:28 10/01/24 00:36 Range/Units POC Glucose 87 141 H 55 L 70-106 mg/dl Urine Creatinine 241.60 H 30.0-125.0 mg/dL Urine Sodium 35 L 40-220 mmol/L Urine Opiates Screen Neg NEGATIVE Urine Fentanyl Screen Neg NEGATIVE Urine Barbiturates Screen Neg NEGATIVE Urine Phencyclidine Screen Neg NEGATIVE Urine Amphetamines Screen Pos NEGATIVE Urine Benzodiazepines Screen Neg NEGATIVE Urine Cocaine Screen Neg NEGATIVE Urine Cannabinoids Screen Neg NEGATIVE Test 09/30/24 23:32 09/30/24 22:44 09/30/24 22:29 09/30/24 22:27 Range/Units Sodium Level 134 L 136-145 mmol/L Potassium Level 5.8 *H 3.5-5.1 mmol/L Chloride Level 100 98-107 mmol/L Carbon Dioxide Level 26 20-31 mmol/L Anion Gap 8 5-15 Blood Urea Nitrogen 43 H 9-23 mg/dL Creatinine 2.83 H 0.700-1.30 mg/dL Glomerular Filtration Rate Calc 25 >90 mL/min BUN/Creatinine Ratio 15.2 10.0-20.0 Serum Glucose 184 H 74-106 mg/dL Calcium Level 7.9 L 8.7-10.4 mg/dL Hemoglobin 17.1 13.5-17.5 g/dL Hematocrit 52.2 41.0-53.0 % POC Glucose 49 *L 54 L 70-106 mg/dl Test 09/30/24 19:48 09/30/24 18:34 09/30/24 18:20 09/30/24 15:24 Range/Units Blood Gas Specimen Type Arterial Blood Gas Sample Site Arterial line Blood Gas Patient Temperature 37.0 Arterial Blood Date Drawn [id number] Arterial Blood pH 7.178 *L 7.350-7.450 Arterial Blood Partial Pressure CO2 38.1 35.0-48.0 mmHg Arterial Blood Partial Pressure O2 280.5 H 83.0-108.0 mmHg Arterial Blood HCO3 13.8 L 21.0-28.0 mmol/L Arterial Blood Oxygen Saturation 99.3 H 94.0-98.0 % Arterial Blood Base Excess -13.8 L -2.0-3.0 mmol/L Arterial Blood Oxyhemoglobin 98.2 H 94.0-98.0 % Arterial Blood Carboxyhemoglobin 0.5 0.5-1.5 % Arterial Blood Methemoglobin 0.6 0.0-1.5 % Alexander Test N/a Blood Gas Total Hemoglobin 17.80 H 13.5-17.5 g/dL Blood Gas Set Respiration Rate 18.0 Blood Gas Modality Vent - ac FiO2 % 100.0 Blood Gas Tidal Volume 500.0 Blood Gas PEEP or CPAP 5.0 Specimen Drawn By Rn Blood Gas Critical Value Read Back Yes Blood Gas Notified Whom dontae Stacy Blood Gas Notified Time [id number] Blood Gas Notified By Troponin I High Sensitivity 451 *H 373 *H </=54 ng/L POC Glucose 234 H 70-106 mg/dl Test 09/30/24 13:30 09/30/24 12:38 Range/Units Troponin I High Sensitivity 343 *H 356 *H </=54 ng/L White Blood Count 9.3 4.4-10.8 10^3/uL Red Blood Count 5.41 4.5-5.90 10^6/uL Hemoglobin 18.0 H 13.5-17.5 g/dL Hematocrit 54.3 H 41.0-53.0 % Mean Corpuscular Volume 100.4 H 80.0-100.0 fL Mean Corpuscular Hemoglobin 33.2 H 28.0-32.0 pg Mean Corpuscular Hemoglobin Concent 33.1 32.0-36.0 g/dL Red Cell Distribution Width 16.0 H 11.8-14.3 % Platelet Count 166 140-450 10^3/uL Mean Platelet Volume 8.9 6.9-10.8 fL Neutrophils (%) (Auto) 74.7 37.0-80.0 % Lymphocytes (%) (Auto) 10.0 10.0-50.0 % Monocytes (%) (Auto) 14.7 H 0.0-12.0 % Eosinophils (%) (Auto) 0.1 0.0-7.0 % Basophils (%) (Auto) 0.5 0.0-2.0 % Neutrophils # (Auto) 7.0 1.6-8.6 10 ^3/uL Lymphocytes # (Auto) 0.9 0.4-5.4 10 ^3/uL Monocytes # (Auto) 1.4 H 0-1.3 10 ^3/uL Eosinophils # (Auto) 0 0-0.8 10 ^3/uL Basophils # (Auto) 0 0-0.2 10 ^3/uL Nucleated Red Blood Cells 0.2 % Prothrombin Time 17.2 H 9.3-11.8 sec Prothrombin Time INR 1.71 H 0.9-1.15 Sodium Level 134 L 136-145 mmol/L Potassium Level 4.7 3.5-5.1 mmol/L Chloride Level 98 98-107 mmol/L Carbon Dioxide Level 26 20-31 mmol/L Anion Gap 10 5-15 Blood Urea Nitrogen 36 H 9-23 mg/dL Creatinine 2.41 H 0.700-1.30 mg/dL Glomerular Filtration Rate Calc 30 >90 mL/min BUN/Creatinine Ratio 14.9 10.0-20.0 Serum Glucose 198 H 74-106 mg/dL Calcium Level 9.9 8.7-10.4 mg/dL Phosphorus Level 4.9 2.4-5.1 mg/dL Magnesium Level 1.6 1.6-2.6 mg/dL Thyroid Stimulating Hormone (TSH) 2.42 0.55-4.78 uIU/mL Assessment Acute kidney injury likely hemodynamic suspect prerenal but can not exclude ischemic injury in the setting of hypotension Shock Chronic kidney disease stage 3 Acute respiratory failure Methamphetamine intoxication Sepsis Hypokalemia Hypoglycemia Recommend maintain mean arterial pressure greater than 65 Avoid hypotension Recommend sepsis workup IV antibiotics Strict Is&Os Recommend IV fluids and monitoring urinary output with a diuretic challenge. No emergent indication for dialysis out at this time however patient is guarded prognosis and require daily assessment critical care time Plan discussed with: Other JAYA TREJO MD Oct 01, 2024 15:56
[2024-10-01] MEDS ORDERED: POTASSIUM CHL 20MEQ/100ML 100 ML IV ONE (18:15)
[2024-10-01] MEDS: FUROSEMIDE 100 MG/10ML VIAL IV ONE (18:26)
[2024-10-01] MEDS: SODIUM CHL 0.9% IV ONE (18:59)
[2024-10-01] MEDS: POTASSIUM CHLORIDE IV ONE (18:59)
--- NOTE | 2024-10-01 22:16 | DVHPN2 ---
Progress Note - Dictate Date Seen: Oct 01, 2024 Has the PT tested + for MRSA If YES, has PT been informed?: No Medical Necessity Reason Pt with a Central, PICC or Fol: Yes The following are medically ne: Venegas Catheter Reason for venegas catheter: Strict I&O Subjective Patient seen and examined at bedside. Sedated, intubated on mechanical ventilator. Overnight events reviewed. vital signs Vital Sign Date Time Temp Pulse Resp B/P (MAP) Pulse Ox O2 Delivery O2 Flow Rate FiO2 10/01/24 21:48 116/79 10/01/24 19:51 74 22 100 30 10/01/24 19:00 100.0 100.0 10/01/24 07:15 Mechanical Ventilator+ 09/30/24 13:36 0 Total Intake and Output 09/30/24 09/30/24 10/01/24 15:00 23:00 07:00 Intake Total 1648.75 ml 349.00 ml Balance 1648.75 ml 349.00 ml medications Current Medications Medications Dose Ordered Sig/Connre Route Start Time Stop Time Status Last Admin Dose Admin Aspirin 81 mg DAILY PO 10/01/24 10:00 10/01/24 10:17 81 MG Atorvastatin Calcium 40 mg HS PO 09/30/24 22:00 Gabapentin 300 mg HS PO 09/30/24 22:00 Carvedilol 6.25 mg BID PO 09/30/24 22:00 Hold 09/30/24 17:32 6.25 MG Morphine Sulfate 2 mg Q30MP PRN IV 09/30/24 15:45 Docusate Sodium 100 mg DAILY PO 10/01/24 10:00 Ondansetron HCl 4 mg Q4HP PRN IV 09/30/24 15:45 Nitroglycerin 0.4 mg Q5MINP PRN SL 09/30/24 15:45 Diagnostic Test (Pha) 1 strip ACHS 09/30/24 17:00 10/01/24 17:20 1 STRIP Insulin Human Regular ACHS SC 09/30/24 17:00 09/30/24 18:25 4 UNITS Dextrose 50 ml UD PRN IV 09/30/24 15:45 10/01/24 11:28 50 ML Propofol 100 ml @ 2.628 mls/ hr Q24H IV 09/30/24 19:15 10/01/24 21:48 13.14 MLS/HR Midazolam HCl 50 ml @ 1 mls/hr Q24H IV 09/30/24 19:15 10/01/24 20:59 8 MLS/HR Vasopressin 20 units/Sodium Chloride 100 ml @ 9 mls/hr Q11H7M IV 09/30/24 19:45 Norepinephrine Bitartrate 250 ml @ 3.75 mls/hr Q24H IV 09/30/24 20:00 10/01/24 15:52 15 MLS/HR Pantoprazole Sodium 40 mg DAILY IV 10/01/24 10:00 10/01/24 10:17 40 MG Spironolactone 50 mg DAILY PO 10/01/24 10:00 Acetaminophen 650 mg Q6HP PRN NG 10/01/24 02:00 10/01/24 15:00 650 MG Cefepime HCl 50 ml @ 12.5 mls/hr DAILY IV 10/01/24 11:00 10/01/24 12:20 12.5 MLS/HR Doxycycline Hyclate 100 ml @ 50 mls/hr Q12H IV 10/01/24 11:00 10/01/24 12:20 50 MLS/HR Enoxaparin Sodium 90 mg DAILY SC 10/02/24 10:00 Enteral Nutritional Formula 1,000 ml 40ML/HR GT 10/01/24 11:00 Sodium Chloride 1,000 ml @ 60 mls/hr [id number] IV 10/01/24 15:00 10/01/24 15:44 60 MLS/HR objective Gen.: Patient lying in bed in medical ICU. Sedated, intubated on mechanical ventilator. Head: Normocephalic, atraumatic. Eyes: PERRLA. Ears: Normal external anatomy. Throat: Endotracheal tube and orogastric tube in place. Neck: Supple, trachea midline. Chest: Transmitted breath sounds bilaterally. Decreased air entry bilaterally. No wheezing. Bibasilar crackles. Cardiovascular: Positive S1, positive S2. Regular rate and rhythm. Abdomen: Positive bowel sounds in all 4 quadrants. Soft, nontender, nondistended. : Venegas in place. Normal external genitalia. Rectal: Deferred. Skin: Warm, dry. Intact. Extremities: 2+ radial pulses bilaterally. No lower extremity edema. Neuro: Sedated. laboratory and microbiology Laboratory Tests 10/01/24 05:08 Test 10/01/24 05:08 Range/Units Serum Glucose 102 74-106 mg/dL Assessment/Plan Impression: Acute hypoxic respiratory failure On mechanical ventilator Elevated troponin [id number] myocardial infarction Acute kidney injury Events: Remains on vent support On AC mode; RR 22, VT 500, PEEP 5, FiO2 30% Improved FiO2 requirements V/Q scan pending Sedated on Versed On pressors for hemodynamic support Levophed 8 mcg/min Titrate to keep mean arterial pressure greater than 65 mmHg Episodes of hypoglycemia - Accu-Cheks Pt with fevers Cooling measures Continue antibiotics ABG reviewed, compensated. CXR image and report reviewed. Devices in place. No opacities. No pneumothorax. U/S venous Doppler of bilateral lower extremities revealed no DVT. Head CT showed no acute intracranial abnormality. Labs and imaging reviewed. Rest of plan as noted below. Plan: s/p intubation on mechanical ventilator. On AC mode; RR 22, VT 500, PEEP 5, FiO2 30% Titrate FIO2 to keep O2 saturation above 90%. VAP bundle. Daily ABG and CXR while intubated Sedate for ventilator synchrony Continue antibiotics. F/u cultures. On pressors for hemodynamic support Titrate to keep mean arterial pressure greater than 65 mmHg. Patient in critical condition Accu-Cheks, ISS. Monitor renal function Monitor electrolytes. Supplement as necessary. Monitor ins and outs. Maintain euvolemia. Obtain Echocardiogram Follow up Cardiology recs. GI prophylaxis. DVT prophylaxis - Therapeutic Lovenox. Prognosis: Poor given patient's multiple co-morbidities. Condition: Critical Rest of plan per hospitalist and other consultants. A total of 35 minutes of critical care time was spent reviewing the patient record, examining the patient, making a diagnostic and therapeutic plan, discussing this plan with the medical personnel, following up on diagnostic studies and following the patient for clinical stability excluding any and all procedures. At least 50% of this time was spent in direct, [id number] contact. Thank you, YOLANDA Fuller, for allowing me to participate in this patient's care. Further recommendations will depend on the patient's clinical course. Please do not hesitate to contact me if you have any questions or concerns. This medical document was created using an electronic medical record system with [employer] PTY dictation system. Although these documentations are being carefully reviewed, there may still be some phonetic and typographical changes. The errors are purely typographical, due to imperfection on the software program, and do not reflect any compromise in the patient's medical care. Plan discussed with: Other (TATIANA Handy) Critical Care Time(min): 35 YAW PLUNKETT MD Oct 01, 2024 22:16
--- NOTE | 2024-10-01 22:37 | DVHPN2 ---
Progress Note - Dictate Date Seen: Oct 01, 2024 Has the PT tested + for MRSA If YES, has PT been informed?: No Medical Necessity Reason Pt with a Central, PICC or Fol: No Subjective Patient was seen and evaluated in follow-up in the ICU. Patient is intubated and sedated on a ventilator. 30% FiO2. Overnight patient was febrile with a T.max of 100.2 F. WBC 16.2, K 3.1, BUN 47, E[employer]ERCE MANAGER 322, GLUC 55, CA 8.6. Chest x-ray shows cardiomegaly. BLE arterial Duplex shows no hemodynamically significant stenosis based on peak systolic velocity criteria. BLE Venous Doppler is also negative for DVT. vital signs Vital Sign Date Time Temp Pulse Resp B/P (MAP) Pulse Ox O2 Delivery O2 Flow Rate FiO2 10/01/24 13:14 74 22 108/68 (81) 100 30 10/01/24 08:00 98.1 98.1 10/01/24 07:15 Mechanical Ventilator+ 09/30/24 13:36 0 Total Intake and Output 09/30/24 09/30/24 10/01/24 15:00 23:00 07:00 Intake Total 1648.75 ml 349.00 ml Balance 1648.75 ml 349.00 ml medications Current Medications Medications Dose Ordered Sig/Conner Route Start Time Stop Time Status Last Admin Dose Admin Aspirin 81 mg DAILY PO 10/01/24 10:00 10/01/24 10:17 81 MG Atorvastatin Calcium 40 mg HS PO 09/30/24 22:00 Gabapentin 300 mg HS PO 09/30/24 22:00 Carvedilol 6.25 mg BID PO 09/30/24 22:00 Hold 09/30/24 17:32 6.25 MG Morphine Sulfate 2 mg Q30MP PRN IV 09/30/24 15:45 Docusate Sodium 100 mg DAILY PO 10/01/24 10:00 Ondansetron HCl 4 mg Q4HP PRN IV 09/30/24 15:45 Nitroglycerin 0.4 mg Q5MINP PRN SL 09/30/24 15:45 Diagnostic Test (Pha) 1 strip ACHS 09/30/24 17:00 10/01/24 11:34 1 STRIP Insulin Human Regular ACHS SC 09/30/24 17:00 09/30/24 18:25 4 UNITS Dextrose 50 ml UD PRN IV 09/30/24 15:45 10/01/24 11:28 50 ML Propofol 100 ml @ 2.628 mls/ hr Q24H IV 09/30/24 19:15 Midazolam HCl 50 ml @ 1 mls/hr Q24H IV 09/30/24 19:15 10/01/24 10:16 9 MLS/HR Vasopressin 20 units/Sodium Chloride 100 ml @ 9 mls/hr Q11H7M IV 09/30/24 19:45 Norepinephrine Bitartrate 250 ml @ 3.75 mls/hr Q24H IV 09/30/24 20:00 09/30/24 19:11 18.75 MLS/HR Pantoprazole Sodium 40 mg DAILY IV 10/01/24 10:00 10/01/24 10:17 40 MG Spironolactone 50 mg DAILY PO 10/01/24 10:00 Acetaminophen 650 mg Q6HP PRN NG 10/01/24 02:00 Cefepime HCl 50 ml @ 12.5 mls/hr DAILY IV 10/01/24 11:00 10/01/24 12:20 12.5 MLS/HR Doxycycline Hyclate 100 ml @ 50 mls/hr Q12H IV 10/01/24 11:00 10/01/24 12:20 50 MLS/HR Enoxaparin Sodium 90 mg DAILY SC 10/02/24 10:00 Enteral Nutritional Formula 1,000 ml 40ML/HR GT 10/01/24 11:00 objective GENERAL: Ill appearing, intubated on ventilator. EYES: PERRL, EOMI. Anicteric. HENT: Moist mucous membranes. LUNGS: Transmitted breath sounds bilaterally. Decreased air entry bilaterally. CARDIOVASCULAR: Irregular rate and rhythm. ABDOMEN: Soft, non-tender and non-distended. EXTREMITIES: No edema. SKIN: Warm, dry. laboratory and microbiology Laboratory Tests 10/01/24 05:08 Test 10/01/24 05:08 Range/Units Serum Glucose 102 74-106 mg/dL Problem List Chest pain. NSTEMI. Atrial Fibrillation with RVR. CIARAN. Community acquired pneumonia. Acute on chronic systolic heart failure EF 10%. DM2 with hyperglycemia. Constipation. Anxiety. Acute respiratory failure. Assessment/Plan Continued all current supportive medical care. Echocardiogram. Aspirin, Lipitor. IV antibiotics as ordered. DVT prophylactics. Morphine for pain management. Vasopressors for hemodynamic support. Additional plan as per the hospital course. Critical care time of 45 minutes provided to include time spent evaluation of patient at bedside, when appropriate patient/family education for diagnosis, treatment plan, review of pertinent medical information and discussion of care with specialty providers and PCP. Mechanical ventilator parameters, treatment and adjustments have personally been reviewed by me and treatment plan by insulation sprayer has also been reviewed. Plan discussed with: Other DESHAUN PETERSON MD Oct 01, 2024 13:28
[2024-10-02] VITALS (43 sets, daily range): BP systolic 111–132; BP diastolic 62–78; PULSE 66–73; RESP 22; TEMP 99–99.3; O2SAT 98–100
[2024-10-02 05:45] LABS: Basophils # (auto) 0.1 10 ^3/uL (0-0.2); Basophils % (auto) 0.7 % (0.0-2.0); Eosinophils # (auto) 0 10 ^3/uL (0-0.8); Eosinophils % (auto) 0.4 % (0.0-7.0); Hematocrit 51.9 % (41.0-53.0); Hemoglobin 17.2 g/dL (13.5-17.5); Lymphocytes % (auto) 8.9 % (10.0-50.0); Mean Corpuscular Hemoglobin 32.8 pg (28.0-32.0); Mean Corpuscular Hgb Conc. 33.2 g/dL (32.0-36.0); Mean Corpuscular Volume 98.7 fL (80.0-100.0); Monocytes # (auto) 0.7 10 ^3/uL (0-1.3); Monocytes % (auto) 6.5 % (0.0-12.0); Neutrophils # (auto) 9.5 10 ^3/uL (1.6-8.6); Neutrophils % (auto) 83.5 % (37.0-80.0); Nucleated Red Blood Cells % 0.2 %; Platelet Count (auto) 129 10^3/uL (140-450); Red Blood Cells 5.26 10^6/uL (4.5-5.90); Red Cell Distribution Width 16.4 % (11.8-14.3); White Blood Cell 11.3 10^3/uL (4.4-10.8)
[2024-10-02 06:00] LABS: Anion Gap 14 (5-15); Chloride 105 mmol/L (98-107); Sodium 138 mmol/L (136-145)
[2024-10-02 06:01] LABS: Calcium 7.8 mg/dL (8.7-10.4); Carbon Dioxide 19 mmol/L (20-31)
[2024-10-02 06:02] LABS: INR 2.73 (0.9-1.15); Prothrombin Time 26.2 sec (9.3-11.8)
[2024-10-02 06:06] LABS: BUN/Creatinine Ratio 12.1 (10.0-20.0)
[2024-10-02 06:26] LABS: Blood Urea Nitrogen 57 mg/dL (9-23); Glucose 115 mg/dL (74-106); Magnesium 1.5 mg/dL (1.6-2.6)
--- NOTE | 2024-10-02 06:26 | DVH ---
EXAM: XR Chest, 1 View CLINICAL INDICATION: chf TECHNIQUE: Frontal view of the chest. COMPARISON: XY CHEST XRAY 1 VIEW on DOS: 10/01/24, XY CHEST XRAY 1 VIEW on DOS: 09/30/24, XY CHEST PO RTABLE on DOS: 09/30/24, XY CHEST PORTABLE on DOS: 07/01/23, XY CHEST PORTABLE on DOS: 06/10/23 FINDINGS: LUNGS AND PLEURAL SPACES: See below. HEART: Cardiomegaly with mild congestion. MEDIASTINUM: Unremarkable. Normal mediastinal contour. BONES/JOINTS: Unremarkable. No acute fracture. TUBES, LINES AND DEVICES: The endotracheal tube (ETT) is in satisfactory position. Enteric tube ti p in the stomach. OTHER FINDINGS: . . . IMPRESSION: Cardiomegaly with mild congestion.
[2024-10-02 07:11] LABS: Base Excess -0.7 mmol/L (-2.0-3.0)
[2024-10-02] MEDS: MAGNESIUM SULFATE 1GM/100ML 100 ML IV ONE (08:48)
[2024-10-02] MEDS: FUROSEMIDE 100 MG/10ML VIAL IV SCH (08:48)
--- NOTE | 2024-10-02 09:09 | DVHPN2 ---
Subjective Patient was intubated and sedated Reviewed: Care Plan, H&P, Labs, Medications Changes from previous H/P or p: No Changes General: Per HPI Eyes: No Pain, No Vision change, No Conjunctivae inflammation, No Eyelid inflammation, No Other, No Redness ENT: No Ear pain, No Ear discharge, No Nose pain, No Nose discharge, No Nose congestion, No Mouth pain, No Mouth swelling, No Throat pain, No Throat swelling, No Other Cardiovascular: Chest Pain; No Palpitations, No Orthopnea, No Paroxysmal Noc. Dyspnea, No Edema, No Lt Headedness, No Other Respiratory: No Cough, No Dry, No Shortness of breath, No SOB with excertion, No Wheezing, No Hemoptysis, No Pleuritic Pain, No Sputum, No Other Gastrointestinal: No Nausea, No Vomiting, No Abdominal Pain, No Diarrhea, No Constipation, No Melena, No Hematochezia, No Other Genitourinary: No Dysuria, No Frequency, No Incontinence, No Hematuria, No Retention, No Other Musculoskeletal: No other, No neck pain, No shoulder pain, No arm pain, No back pain, No hand pain, No leg pain, No foot pain Skin: No Rash, No Lesions, No Jaundice, No Bruising, No Other Objective Vitals Vital Signs Date Time Temp Pulse Resp B/P (MAP) Pulse Ox O2 Delivery O2 Flow Rate FiO2 10/02/24 08:48 128/70 10/02/24 08:12 98.4 67 22 98 98.4 10/02/24 08:12 Mechanical Ventilator+ 30 30 09/30/24 13:36 0 Intake/Output Intake and Output 10/02/24 07:00 Intake Total 2148.238 ml Output Total 300 ml Balance 1848.238 ml Intake Oral 100 ml IV Total 1948.238 ml Tube Feeding 100 ml Output Urine Total 300 ml General Appearance: Other (Chemically sedated) HEENT: Atraumatic, PERRLA Lungs: Clear to auscultation, Normal air movement, Other (Mechanical ventilation) Cardiovascular: Normal S1, Normal S2, Other (PAF) Abdomen: Normal bowel sounds, Soft, No tenderness Musculoskeletal: Other (Motor removed) Neuro: Other (Unable to assess) Skin: Dry, Intact Psych/Mental Status: Other (Unable to assess) Medications Current Medications Medications Dose Ordered Sig/Conner Route Start Time Stop Time Status Last Admin Dose Admin Aspirin 81 mg DAILY PO 10/01/24 10:00 10/01/24 10:17 81 MG Atorvastatin Calcium 40 mg HS PO 09/30/24 22:00 10/01/24 23:54 40 MG Gabapentin 300 mg HS PO 09/30/24 22:00 10/01/24 23:54 300 MG Carvedilol 6.25 mg BID PO 09/30/24 22:00 Hold 09/30/24 17:32 6.25 MG Morphine Sulfate 2 mg Q30MP PRN IV 09/30/24 15:45 Docusate Sodium 100 mg DAILY PO 10/01/24 10:00 Ondansetron HCl 4 mg Q4HP PRN IV 09/30/24 15:45 Nitroglycerin 0.4 mg Q5MINP PRN SL 09/30/24 15:45 Diagnostic Test (Pha) 1 strip ACHS 09/30/24 17:00 10/02/24 05:45 1 STRIP Insulin Human Regular ACHS SC 09/30/24 17:00 09/30/24 18:25 4 UNITS Dextrose 50 ml UD PRN IV 09/30/24 15:45 10/01/24 11:28 50 ML Propofol 100 ml @ 2.628 mls/ hr Q24H IV 09/30/24 19:15 10/02/24 07:32 7.884 MLS/HR Midazolam HCl 50 ml @ 1 mls/hr Q24H IV 09/30/24 19:15 10/02/24 03:53 7 MLS/HR Vasopressin 20 units/Sodium Chloride 100 ml @ 9 mls/hr Q11H7M IV 09/30/24 19:45 Norepinephrine Bitartrate 250 ml @ 3.75 mls/hr Q24H IV 09/30/24 20:00 10/01/24 15:52 15 MLS/HR Pantoprazole Sodium 40 mg DAILY IV 10/01/24 10:00 10/01/24 10:17 40 MG Acetaminophen 650 mg Q6HP PRN NG 10/01/24 02:00 10/01/24 15:00 650 MG Cefepime HCl 50 ml @ 12.5 mls/hr DAILY IV 10/01/24 11:00 10/01/24 12:20 12.5 MLS/HR Doxycycline Hyclate 100 ml @ 50 mls/hr Q12H IV 10/01/24 11:00 10/01/24 23:59 50 MLS/HR Enoxaparin Sodium 90 mg DAILY SC 10/02/24 10:00 Enteral Nutritional Formula 1,000 ml 40ML/HR GT 10/01/24 11:00 Sodium Chloride 1,000 ml @ 60 mls/hr [id number] IV 10/01/24 15:00 10/01/24 15:44 60 MLS/HR Furosemide 80 mg BIDD IV 10/02/24 07:30 10/02/24 08:48 80 MG Laboratory Results Laboratory Tests 10/02/24 04:49 Chemistry Test 10/02/24 04:49 Calcium Level 7.8 mg/dL (8.7-10.4) L Magnesium Level 1.5 mg/dL (1.6-2.6) L Coagulation Test 10/02/24 04:49 Prothrombin Time 26.2 sec (9.3-11.8) H Prothrombin Time INR 2.73 (0.9-1.15) H Activated Partial Thromboplast Time 39.0 SEC (24.5-34.5) H Urinalysis Test 10/01/24 00:36 Urine Creatinine 241.60 mg/dL (30.0-125.0) H Urine Sodium 35 mmol/L (40-220) L Blood Gas Results Test 10/02/24 07:06 Arterial Blood pH 7.426 (7.350-7.450) FiO2 % 30.0 Microbiology Microbiology Date/Time Source Procedure Growth Status 09/30/24 19:11 Trachea Gram Stain - Final Resulted 09/30/24 19:11 Trachea Respiratory Culture - Preliminary Resulted Labs and/or images reviewed: Labs reviewed by me, Image(s) reviewed by me Assessment/Plan Assessment/Plan Impression: -NSTEMI, probably type 2 secondary to amphetamine use -amphetamine use -cardiomyopathy -acute on chronic systolic heart failure with ejection fraction 10% -acute hypoxic respiratory failure -AFib/flutter with RVR -cardiogenic shock -acute kidney injury, vasomotor nephropathy -underlying CKD stage IIIb/four -leukocytosis, probable sirs -hypoglycemia Plan: Events: Patient with worsening renal function. Patient had hypoglycemia with tube feeding ordered yesterday which was not started by the nursing staff. Discussed this with primary nurse today. Hemodynamically stable. FiO2 30%. Magnesium 1.5. Repleted by Nephrology hold any weaning trials at this time given patient may require HD. -cardiology consultation: Recommendations reviewed -nephrology consultation placed -continue current ventilator settings, per pulmonology recommendations -continue current sedation -norepinephrine drip to keep map greater than 65 mmHg -PUD, DVT prophylaxis -therapeutic anticoagulation with Lovenox -change antibiotic therapy to doxycycline and cefepime given acute renal failure -titrate FiO2 to keep saturation greater than 93%. Currently on 30% FiO2 -change tube feeding to Nepro given worsening renal function. -repeat labs, chest x-ray, ABG in a.m. -plan of care discussed with patient's motherEufemia in detail. All questions answered. Critical care time spent with patient discussing and formulating plan of care: 90 minutes. This does not include time spent performing procedures. This medical document was created using an electronic medical record system with [employer] dictation system. Although this document has been carefully reviewed, there may still be some phonetic and typographical errors. These areas are purely typographical due to imperfections of the software programs, and do not reflect any compromise in the patient's medical care. Plan discussed with: Patient, Other (RN, Mother) My Orders Orders - MARK LILLY NP Procedure Category Date Status Time *[facility] CONS 10/01/24 Transmitted -[place] 10:59 Cefepime 1gm/ 50ml PHA 10/01/24 In Process (Maxipime 1gm/50ml) 11:00 Doxycycline PHA 10/01/24 In Process 100mg/100ml 11:00 Chest Portable XY 10/02/24 Resulted 04:00 Abg W/ Co-Ox RT 10/02/24 Logged 04:00 Enoxaparin Sodium PHA 10/02/24 In Process (Lovenox) 10:00 Urine Bacterial MARY 10/01/24 In Process Culture 10:59 Nutritional PHA 10/01/24 In Process Supplements (Jevity 11:00 Mrsa Screen MARY 10/01/24 Uncollected 12:02 Nutritional PHA 10/02/24 Verified Supplements (Glucerna 09:00 Date of Service: Oct 02, 2024 Billing Provider: MARK LILLY NP Common Visit Codes: 87930-LNJHERWW CARE 30-74 MIN, 14985-RILPFMAO CARE-EACH +30MIN MARK LILLY NP Oct 02, 2024 09:09
[2024-10-02] MEDS ORDERED: ENOXAPARIN SOD 100 MG/1 ML SYRINGE SC SCH (10:00)
[2024-10-02] MEDS: Glucerna 1.2 Cal 1Liter BOTTLE GT SCH (10:21)
--- NOTE | 2024-10-02 14:13 | DVHSR ---
APPROVED REPORT EXAM: Two-dimensional and M-mode echocardiogram with Doppler and color Doppler. Blood Pressure: 106/68 mmHg INDICATION Elevated Trop/NSTEMI RISK FACTORS Height: 5'10", Weight: 193 DIMENSIONS LVDd6.3 (3.8-5.7cm)LA (2D)4.0 (1.9-4.0cm)Aortic Root3.5 (2.0-3.7cm) LVDs6.1 (2.5-4.0cm)LA (MM) (1.9-4.0cm)Aortic Cusp Exc1.5 (1.5-2.0cm) EF (%) 5.0 (55-70%)Rt. Atrium4.3 (1.9-4.0cm)Asc. Aorta3.4 cm IVSd1.1 (0.7-1.1cm)RV (D)4.2 (1.8-2.4cm) PWd0.7 (0.7-1.1cm) Mitral Valve MitralMitral Stenosis E wave0.76m/sMV Mean GR.mmHg A wave0.47m/sMV Peak GR.mmHg E/A ratio1.62D MVAcm2 DECEL [id number] 1/2 Timems Aortic Valve Aortic ValveAortic Stenosis V10.43m/Jeromy Mean GR.2mmHg V20.98m/Jeromy Peak GR.4mmHg LVOT Diameter2.3 (1.8-2.4cm)Doppler AVA1.82cm2 Pulmonic Valve V20.57m/s Tricuspid Valve TR Velocity1.94m/s [id number] Other Information Quality : Technically LimitedRhythm : Technically limited study due to on vent. Conclusion LVEF is severely reduced at 10-15%, global hypokinesis Right ventricular function is severely reduced . Mildly dilated.
--- NOTE | 2024-10-02 15:07 | DVHPN2 ---
Progress Note Date Seen: Oct 02, 2024 Has the PT tested + for MRSA If YES, has PT been informed?: No Medical Necessity Reason Pt with a Central, PICC or Fol: Yes The following are medically ne: Venegas Catheter Reason for venegas catheter: Strict I&O Subjective Patient reports: Other (intubated) Review of Systems: Deferred Objective vital signs Vital Sign Date Time Temp Pulse Resp B/P (MAP) Pulse Ox O2 Delivery O2 Flow Rate FiO2 10/02/24 13:42 68 22 129/71 (90) 100 30 10/02/24 13:30 98.4 98.4 10/02/24 08:12 Mechanical Ventilator+ 09/30/24 13:36 0 Total Intake and Output 10/01/24 10/01/24 10/02/24 15:00 23:00 07:00 Intake Total 420.85 ml 818.432 ml 908.956 ml Output Total 150 ml 150 ml Balance 420.85 ml 668.432 ml 758.956 ml medications Current Medications Medications Dose Ordered Sig/Conner Route Start Time Stop Time Status Last Admin Dose Admin Aspirin 81 mg DAILY PO 10/01/24 10:00 10/02/24 10:19 81 MG Atorvastatin Calcium 40 mg HS PO 09/30/24 22:00 10/01/24 23:54 40 MG Gabapentin 300 mg HS PO 09/30/24 22:00 10/01/24 23:54 300 MG Carvedilol 6.25 mg BID PO 09/30/24 22:00 Hold 09/30/24 17:32 6.25 MG Morphine Sulfate 2 mg Q30MP PRN IV 09/30/24 15:45 Docusate Sodium 100 mg DAILY PO 10/01/24 10:00 10/02/24 10:18 100 MG Ondansetron HCl 4 mg Q4HP PRN IV 09/30/24 15:45 Nitroglycerin 0.4 mg Q5MINP PRN SL 09/30/24 15:45 Diagnostic Test (Pha) 1 strip ACHS 09/30/24 17:00 10/02/24 11:42 1 STRIP Insulin Human Regular ACHS SC 09/30/24 17:00 09/30/24 18:25 4 UNITS Dextrose 50 ml UD PRN IV 09/30/24 15:45 10/01/24 11:28 50 ML Propofol 100 ml @ 2.628 mls/ hr Q24H IV 09/30/24 19:15 10/02/24 07:32 7.884 MLS/HR Midazolam HCl 50 ml @ 1 mls/hr Q24H IV 09/30/24 19:15 10/02/24 10:03 7 MLS/HR Vasopressin 20 units/Sodium Chloride 100 ml @ 9 mls/hr Q11H7M IV 09/30/24 19:45 Norepinephrine Bitartrate 250 ml @ 3.75 mls/hr Q24H IV 09/30/24 20:00 10/01/24 15:52 15 MLS/HR Pantoprazole Sodium 40 mg DAILY IV 10/01/24 10:00 10/02/24 10:18 40 MG Acetaminophen 650 mg Q6HP PRN NG 10/01/24 02:00 10/01/24 15:00 650 MG Cefepime HCl 50 ml @ 12.5 mls/hr DAILY IV 10/01/24 11:00 10/02/24 10:03 12.5 MLS/HR Doxycycline Hyclate 100 ml @ 50 mls/hr Q12H IV 10/01/24 11:00 10/02/24 11:18 50 MLS/HR Sodium Chloride 1,000 ml @ 60 mls/hr [id number] IV 10/01/24 15:00 10/02/24 10:41 60 MLS/HR Furosemide 80 mg BIDD IV 10/02/24 07:30 10/02/24 08:48 80 MG Enteral Nutritional Formula 1,000 ml 40ML/HR GT 10/02/24 09:00 10/02/24 10:21 1,000 ML Examination: GENERAL:Abnormal, LUNGS:Abnormal, MSK:Abnormal, SKIN:Abnormal, NEURO:Abnormal laboratory and microbiology Laboratory Tests 10/02/24 04:49 Test 10/02/24 04:49 Range/Units Serum Glucose 115 H 74-106 mg/dL Microbiology Date/Time Source Procedure Growth Status 10/01/24 00:36 Urine - [place] Urine Culture - Preliminary Resulted 09/30/24 19:11 Trachea Gram Stain - Final Resulted 09/30/24 19:11 Trachea Respiratory Culture - Preliminary Resulted Problem List/Assessment/Plan Problem List/Assessment/Plan Acute kidney injury likely hemodynamic suspect prerenal but can not exclude ischemic injury in the setting of hypotension Shock Chronic kidney disease stage 3a Acute respiratory failure Methamphetamine intoxication Sepsis Hypokalemia Hypoglycemia continue IV and lasx today, UOP has increased slightly purple discoloration of b/l feet indicate poor perfusion Recommend maintain mean arterial pressure greater than 65 Avoid hypotension Strict Is&Os Recommend IV fluids and monitoring urinary output with a diuretic challenge. No emergent indication for dialysis out at this time however patient is guarded prognosis and require daily assessment overall poor prognosis critical care time 50min Plan discussed with: Other My Orders My Orders Orders - JAYA TREJO MD Procedure Category Date Status Time Furosemide Injection PHA 10/02/24 In Process (Lasix Injection) 07:30 JAYA TREJO MD Oct 02, 2024 15:07
--- NOTE | 2024-10-02 21:40 | DVHPN2 ---
Progress Note - Dictate Date Seen: Oct 02, 2024 Has the PT tested + for MRSA If YES, has PT been informed?: No Medical Necessity Reason Pt with a Central, PICC or Fol: Yes The following are medically ne: Venegas Catheter Reason for venegas catheter: Strict I&O Subjective Patient seen and examined at bedside. Sedated, intubated on mechanical ventilator. Overnight events reviewed. vital signs Vital Sign Date Time Temp Pulse Resp B/P (MAP) Pulse Ox O2 Delivery O2 Flow Rate FiO2 10/02/24 20:30 99.3 69 22 129/72 (91) 100 99.3 124/70 (88) 10/02/24 20:04 30 10/02/24 20:00 Mechanical Ventilator+ 09/30/24 13:36 0 Total Intake and Output 10/01/24 10/01/24 10/02/24 15:00 23:00 07:00 Intake Total 420.85 ml 818.432 ml 908.956 ml Output Total 150 ml 150 ml Balance 420.85 ml 668.432 ml 758.956 ml medications Current Medications Medications Dose Ordered Sig/Conner Route Start Time Stop Time Status Last Admin Dose Admin Aspirin 81 mg DAILY PO 10/01/24 10:00 10/02/24 10:19 81 MG Atorvastatin Calcium 40 mg HS PO 09/30/24 22:00 10/01/24 23:54 40 MG Gabapentin 300 mg HS PO 09/30/24 22:00 10/01/24 23:54 300 MG Carvedilol 6.25 mg BID PO 09/30/24 22:00 Hold 09/30/24 17:32 6.25 MG Morphine Sulfate 2 mg Q30MP PRN IV 09/30/24 15:45 Docusate Sodium 100 mg DAILY PO 10/01/24 10:00 10/02/24 10:18 100 MG Ondansetron HCl 4 mg Q4HP PRN IV 09/30/24 15:45 Nitroglycerin 0.4 mg Q5MINP PRN SL 09/30/24 15:45 Diagnostic Test (Pha) 1 strip ACHS 09/30/24 17:00 10/02/24 17:15 1 STRIP Insulin Human Regular ACHS SC 09/30/24 17:00 09/30/24 18:25 4 UNITS Dextrose 50 ml UD PRN IV 09/30/24 15:45 10/01/24 11:28 50 ML Propofol 100 ml @ 2.628 mls/ hr Q24H IV 09/30/24 19:15 10/02/24 16:04 7.884 MLS/HR Midazolam HCl 50 ml @ 1 mls/hr Q24H IV 09/30/24 19:15 10/02/24 16:33 7 MLS/HR Vasopressin 20 units/Sodium Chloride 100 ml @ 9 mls/hr Q11H7M IV 09/30/24 19:45 Norepinephrine Bitartrate 250 ml @ 3.75 mls/hr Q24H IV 09/30/24 20:00 10/02/24 20:00 15 MLS/HR Pantoprazole Sodium 40 mg DAILY IV 10/01/24 10:00 10/02/24 10:18 40 MG Acetaminophen 650 mg Q6HP PRN NG 10/01/24 02:00 10/01/24 15:00 650 MG Cefepime HCl 50 ml @ 12.5 mls/hr DAILY IV 10/01/24 11:00 10/02/24 10:03 12.5 MLS/HR Doxycycline Hyclate 100 ml @ 50 mls/hr Q12H IV 10/01/24 11:00 10/02/24 11:18 50 MLS/HR Sodium Chloride 1,000 ml @ 60 mls/hr [id number] IV 10/01/24 15:00 10/02/24 10:41 60 MLS/HR Furosemide 80 mg BIDD IV 10/02/24 07:30 10/02/24 19:06 80 MG Enteral Nutritional Formula 1,000 ml 40ML/HR GT 10/02/24 09:00 10/02/24 10:21 1,000 ML objective Gen.: Patient lying in bed in medical ICU. Sedated, intubated on mechanical ventilator. Head: Normocephalic, atraumatic. Eyes: PERRLA. Ears: Normal external anatomy. Throat: Endotracheal tube and orogastric tube in place. Neck: Supple, trachea midline. Chest: Transmitted breath sounds bilaterally. Decreased air entry bilaterally. No wheezing. Bibasilar crackles. Cardiovascular: Positive S1, positive S2. Regular rate and rhythm. Abdomen: Positive bowel sounds in all 4 quadrants. Soft, nontender, nondistended. : Venegas in place. Normal external genitalia. Rectal: Deferred. Skin: Warm, dry. Intact. Extremities: 2+ radial pulses bilaterally. No lower extremity edema. Neuro: Sedated. laboratory and microbiology Laboratory Tests 10/02/24 04:49 Test 10/02/24 04:49 Range/Units Serum Glucose 115 H 74-106 mg/dL Assessment/Plan Impression: Acute hypoxic respiratory failure On mechanical ventilator Elevated troponin [id number] myocardial infarction Acute kidney injury Events: Remains on vent support On AC mode; RR 22, VT 500, PEEP 5, FiO2 30% V/Q scan pending Sedated on Versed, Propofol On pressors for hemodynamic support Levophed 8 mcg/min Titrate to keep mean arterial pressure greater than 65 mmHg Accu-Cheks Continue antibiotics IV fluids Taper sedation as tolerated OK to start Precedex if necessary CPAP in the AM with PS 8, PEEP 5. ABG reviewed, compensated. CXR image and report reviewed. Devices in place. Cardiomegaly with mild congestion. Labs and imaging reviewed. Rest of plan as noted below. Plan: s/p intubation on mechanical ventilator. On AC mode; RR 22, VT 500, PEEP 5, FiO2 30% Titrate FIO2 to keep O2 saturation above 90%. VAP bundle. Daily ABG and CXR while intubated Sedate for ventilator synchrony Continue antibiotics. F/u cultures. On pressors for hemodynamic support Titrate to keep mean arterial pressure greater than 65 mmHg. Patient in critical condition Accu-Cheks, ISS PRN. Monitor renal function Monitor electrolytes. Supplement as necessary. Monitor ins and outs. Maintain euvolemia. Obtain Echocardiogram Follow up Cardiology recs. GI prophylaxis. DVT prophylaxis - Therapeutic Lovenox. Prognosis: Poor given patient's multiple co-morbidities. Condition: Critical Rest of plan per hospitalist and other consultants. A total of 35 minutes of critical care time was spent reviewing the patient record, examining the patient, making a diagnostic and therapeutic plan, discussing this plan with the medical personnel, following up on diagnostic studies and following the patient for clinical stability excluding any and all procedures. At least 50% of this time was spent in direct, [id number] contact. Thank you, YOLANDA Fuller, for allowing me to participate in this patient's care. Further recommendations will depend on the patient's clinical course. Please do not hesitate to contact me if you have any questions or concerns. This medical document was created using an electronic medical record system with [employer] computerized dictation system. Although these documentations are being carefully reviewed, there may still be some phonetic and typographical changes. The errors are purely typographical, due to imperfection on the software program, and do not reflect any compromise in the patient's medical care. Plan discussed with: Other (TATIANA Shetty) Critical Care Time(min): 35 YAW PLUNKETT MD Oct 02, 2024 21:40
--- NOTE | 2024-10-02 23:16 | DVHPN2 ---
Progress Note - Dictate Date Seen: Oct 02, 2024 Has the PT tested + for MRSA If YES, has PT been informed?: No Medical Necessity Reason Pt with a Central, PICC or Fol: Yes The following are medically ne: Venegas Catheter Reason for venegas catheter: Strict I&O Subjective Patient was seen and evaluated in follow-up in the ICU. Patient is intubated and sedated on a ventilator. FiO2 is 30%. Patient is receiving TFs. WBC 11.3, BUN 57, DESIGN TRANSFERRER 4.72, CA 7.8. Chest x-ray shows cardiomegaly with mild congestion. vital signs Vital Sign Date Time Temp Pulse Resp B/P (MAP) Pulse Ox O2 Delivery O2 Flow Rate FiO2 10/02/24 10:30 98.4 68 22 126/75 (92) 100 98.4 10/02/24 09:30 30 10/02/24 08:12 Mechanical Ventilator+ 09/30/24 13:36 0 Total Intake and Output 10/01/24 10/01/24 10/02/24 15:00 23:00 07:00 Intake Total 420.85 ml 818.432 ml 908.956 ml Output Total 150 ml 150 ml Balance 420.85 ml 668.432 ml 758.956 ml medications Current Medications Medications Dose Ordered Sig/Conner Route Start Time Stop Time Status Last Admin Dose Admin Aspirin 81 mg DAILY PO 10/01/24 10:00 10/02/24 10:19 81 MG Atorvastatin Calcium 40 mg HS PO 09/30/24 22:00 10/01/24 23:54 40 MG Gabapentin 300 mg HS PO 09/30/24 22:00 10/01/24 23:54 300 MG Carvedilol 6.25 mg BID PO 09/30/24 22:00 Hold 09/30/24 17:32 6.25 MG Morphine Sulfate 2 mg Q30MP PRN IV 09/30/24 15:45 Docusate Sodium 100 mg DAILY PO 10/01/24 10:00 10/02/24 10:18 100 MG Ondansetron HCl 4 mg Q4HP PRN IV 09/30/24 15:45 Nitroglycerin 0.4 mg Q5MINP PRN SL 09/30/24 15:45 Diagnostic Test (Pha) 1 strip ACHS 09/30/24 17:00 10/02/24 11:42 1 STRIP Insulin Human Regular ACHS SC 09/30/24 17:00 09/30/24 18:25 4 UNITS Dextrose 50 ml UD PRN IV 09/30/24 15:45 10/01/24 11:28 50 ML Propofol 100 ml @ 2.628 mls/ hr Q24H IV 09/30/24 19:15 10/02/24 07:32 7.884 MLS/HR Midazolam HCl 50 ml @ 1 mls/hr Q24H IV 09/30/24 19:15 10/02/24 10:03 7 MLS/HR Vasopressin 20 units/Sodium Chloride 100 ml @ 9 mls/hr Q11H7M IV 09/30/24 19:45 Norepinephrine Bitartrate 250 ml @ 3.75 mls/hr Q24H IV 09/30/24 20:00 10/01/24 15:52 15 MLS/HR Pantoprazole Sodium 40 mg DAILY IV 10/01/24 10:00 10/02/24 10:18 40 MG Acetaminophen 650 mg Q6HP PRN NG 10/01/24 02:00 10/01/24 15:00 650 MG Cefepime HCl 50 ml @ 12.5 mls/hr DAILY IV 10/01/24 11:00 10/02/24 10:03 12.5 MLS/HR Doxycycline Hyclate 100 ml @ 50 mls/hr Q12H IV 10/01/24 11:00 10/02/24 11:18 50 MLS/HR Sodium Chloride 1,000 ml @ 60 mls/hr [id number] IV 10/01/24 15:00 10/02/24 10:41 60 MLS/HR Furosemide 80 mg BIDD IV 10/02/24 07:30 10/02/24 08:48 80 MG Enteral Nutritional Formula 1,000 ml 40ML/HR GT 10/02/24 09:00 10/02/24 10:21 1,000 ML objective GENERAL: Ill appearing, intubated on ventilator. EYES: PERRL, EOMI. Anicteric. HENT: Moist mucous membranes. LUNGS: Transmitted breath sounds bilaterally. Decreased air entry bilaterally. CARDIOVASCULAR: Irregular rate and rhythm. ABDOMEN: Soft, non-tender and non-distended. EXTREMITIES: No edema. SKIN: Warm, dry. laboratory and microbiology Laboratory Tests 10/02/24 04:49 Test 10/02/24 04:49 Range/Units Serum Glucose 115 H 74-106 mg/dL Problem List Chest pain. NSTEMI. Atrial Fibrillation with RVR. CIARAN. Community acquired pneumonia. Acute on chronic systolic heart failure EF 10%. DM2 with hyperglycemia. Constipation. Anxiety. Acute respiratory failure. Assessment/Plan Continued all current supportive medical care. Echocardiogram. Aspirin, Lipitor. IV antibiotics as ordered. DVT prophylactics. Morphine for pain management. Vasopressors for hemodynamic support. Additional plan as per the hospital course. Critical care time of 45 minutes provided to include time spent evaluation of patient at bedside, when appropriate patient/family education for diagnosis, treatment plan, review of pertinent medical information and discussion of care with specialty providers and PCP. Mechanical ventilator parameters, treatment and adjustments have personally been reviewed by me and treatment plan by educational coordinator has also been reviewed. Plan discussed with: Other DESHAUN PETERSON MD Oct 02, 2024 11:57
[2024-10-03] VITALS (105 sets, daily range): BP systolic 93–141; BP diastolic 59–82; PULSE 61–71; RESP 10–23; TEMP 97.7–99.5; O2SAT 97–100
--- NOTE | 2024-10-03 06:14 | DVH ---
CHEST RADIOGRAPH Indication: intubated Technique: Single frontal view of the chest was obtained Comparison: XY CHEST PORTABLE on DOS: 10/02/24, XY CHEST XRAY 1 VIEW on DOS: 10/01/24 FINDINGS: Lines and Tubes: The endotracheal tube terminates 4.5 cm above the chace. The enteric tube courses b elow the left hemidiaphragm and the tip extends outside the field of view. Lungs: No focal consolidation. Pulmonary vascular congestion is unchanged. Pleura: No effusion. No pneumothorax. Cardiomediastinal contours: Stable cardiomegaly. Bones: No acute osseous abnormality. IMPRESSION: 1. No significant interval change in appearance of the support lines and tubes or the lungs.
[2024-10-03 06:29] LABS: Base Excess -0.5 mmol/L (-2.0-3.0)
[2024-10-03 06:32] LABS: Basophils # (auto) 0.1 10 ^3/uL (0-0.2); Basophils % (auto) 1.1 % (0.0-2.0); Eosinophils # (auto) 0.2 10 ^3/uL (0-0.8); Hematocrit 51.1 % (41.0-53.0); Hemoglobin 16.7 g/dL (13.5-17.5); Lymphocytes % (auto) 10.5 % (10.0-50.0); Mean Corpuscular Hemoglobin 32.5 pg (28.0-32.0); Mean Corpuscular Hgb Conc. 32.7 g/dL (32.0-36.0); Mean Corpuscular Volume 99.6 fL (80.0-100.0); Monocytes # (auto) 0.7 10 ^3/uL (0-1.3); Monocytes % (auto) 8.1 % (0.0-12.0); Neutrophils # (auto) 7.2 10 ^3/uL (1.6-8.6); Neutrophils % (auto) 78.3 % (37.0-80.0); Nucleated Red Blood Cells % 0.2 %; Platelet Count (auto) 161 10^3/uL (140-450); Red Blood Cells 5.13 10^6/uL (4.5-5.90); Red Cell Distribution Width 16.3 % (11.8-14.3); White Blood Cell 9.2 10^3/uL (4.4-10.8)
[2024-10-03 07:05] LABS: Chloride 104 mmol/L (98-107); Sodium 139 mmol/L (136-145)
[2024-10-03 07:06] LABS: Anion Gap 14 (5-15); Carbon Dioxide 21 mmol/L (20-31)
[2024-10-03 07:33] LABS: Blood Urea Nitrogen 72 mg/dL (9-23); Calcium 7.8 mg/dL (8.7-10.4); Glucose 160 mg/dL (74-106)
--- NOTE | 2024-10-03 09:51 | DVHPN2 ---
Subjective Patient was intubated and sedated Reviewed: Care Plan, H&P, Labs, Medications Changes from previous H/P or p: No Changes General: Per HPI Eyes: No Pain, No Vision change, No Conjunctivae inflammation, No Eyelid inflammation, No Other, No Redness ENT: No Ear pain, No Ear discharge, No Nose pain, No Nose discharge, No Nose congestion, No Mouth pain, No Mouth swelling, No Throat pain, No Throat swelling, No Other Cardiovascular: Chest Pain; No Palpitations, No Orthopnea, No Paroxysmal Noc. Dyspnea, No Edema, No Lt Headedness, No Other Respiratory: No Cough, No Dry, No Shortness of breath, No SOB with excertion, No Wheezing, No Hemoptysis, No Pleuritic Pain, No Sputum, No Other Gastrointestinal: No Nausea, No Vomiting, No Abdominal Pain, No Diarrhea, No Constipation, No Melena, No Hematochezia, No Other Genitourinary: No Dysuria, No Frequency, No Incontinence, No Hematuria, No Retention, No Other Musculoskeletal: No other, No neck pain, No shoulder pain, No arm pain, No back pain, No hand pain, No leg pain, No foot pain Skin: No Rash, No Lesions, No Jaundice, No Bruising, No Other Objective Vitals Vital Signs Date Time Temp Pulse Resp B/P (MAP) Pulse Ox O2 Delivery O2 Flow Rate FiO2 10/03/24 09:19 68 22 124/75 (91) 99 30 10/03/24 08:00 98.6 98.6 10/03/24 07:30 Mechanical Ventilator+ Intake/Output Intake and Output 10/03/24 07:00 Intake Total 2667.936 ml Output Total 1100 ml Balance 1567.936 ml Intake Oral 60 ml IV Total 2167.936 ml Tube Feeding 440 ml Output Urine Total 1100 ml General Appearance: moderate distress, Other (Chemically sedated) HEENT: Atraumatic, PERRLA Lungs: Clear to auscultation, Normal air movement, Other (Mechanical ventilation) Cardiovascular: Normal S1, Normal S2, Other (PAF) Abdomen: Normal bowel sounds, Soft, No tenderness Musculoskeletal: Other (Motor removed) Neuro: Other (Unable to assess) Skin: Dry, Intact Psych/Mental Status: Other (Unable to assess) Medications Current Medications Medications Dose Ordered Sig/Conner Route Start Time Stop Time Status Last Admin Dose Admin Aspirin 81 mg DAILY PO 10/01/24 10:00 10/02/24 10:19 81 MG Atorvastatin Calcium 40 mg HS PO 09/30/24 22:00 10/02/24 22:04 40 MG Gabapentin 300 mg HS PO 09/30/24 22:00 10/02/24 22:04 300 MG Carvedilol 6.25 mg BID PO 09/30/24 22:00 Hold 09/30/24 17:32 6.25 MG Morphine Sulfate 2 mg Q30MP PRN IV 09/30/24 15:45 Docusate Sodium 100 mg DAILY PO 10/01/24 10:00 10/02/24 10:18 100 MG Ondansetron HCl 4 mg Q4HP PRN IV 09/30/24 15:45 Nitroglycerin 0.4 mg Q5MINP PRN SL 09/30/24 15:45 Diagnostic Test (Pha) 1 strip ACHS 09/30/24 17:00 10/03/24 06:27 1 STRIP Insulin Human Regular ACHS SC 09/30/24 17:00 10/03/24 06:28 2 UNITS Dextrose 50 ml UD PRN IV 09/30/24 15:45 10/01/24 11:28 50 ML Propofol 100 ml @ 2.628 mls/ hr Q24H IV 09/30/24 19:15 10/03/24 04:01 7.884 MLS/HR Midazolam HCl 50 ml @ 1 mls/hr Q24H IV 09/30/24 19:15 10/03/24 06:29 7 MLS/HR Vasopressin 20 units/Sodium Chloride 100 ml @ 9 mls/hr Q11H7M IV 09/30/24 19:45 Norepinephrine Bitartrate 250 ml @ 3.75 mls/hr Q24H IV 09/30/24 20:00 10/02/24 20:00 15 MLS/HR Pantoprazole Sodium 40 mg DAILY IV 10/01/24 10:00 10/02/24 10:18 40 MG Acetaminophen 650 mg Q6HP PRN NG 10/01/24 02:00 10/01/24 15:00 650 MG Cefepime HCl 50 ml @ 12.5 mls/hr DAILY IV 10/01/24 11:00 10/02/24 10:03 12.5 MLS/HR Doxycycline Hyclate 100 ml @ 50 mls/hr Q12H IV 10/01/24 11:00 10/02/24 23:00 50 MLS/HR Furosemide 80 mg BIDD IV 10/02/24 07:30 10/03/24 06:05 80 MG Enteral Nutritional Formula 1,000 ml 40ML/HR GT 10/02/24 09:00 10/03/24 06:29 1,000 ML Laboratory Results Laboratory Tests 10/03/24 05:47 Chemistry Test 10/03/24 05:47 Calcium Level 7.8 mg/dL (8.7-10.4) L Urinalysis Test 10/01/24 00:36 Urine Creatinine 241.60 mg/dL (30.0-125.0) H Urine Sodium 35 mmol/L (40-220) L Blood Gas Results Test 10/03/24 06:25 Arterial Blood pH 7.424 (7.350-7.450) FiO2 % 30.0 Microbiology Microbiology Date/Time Source Procedure Growth Status 10/01/24 00:36 Urine - [place] Urine Culture - Preliminary Resulted 09/30/24 19:11 Trachea Gram Stain - Final Resulted 09/30/24 19:11 Trachea Respiratory Culture - Preliminary Resulted Labs and/or images reviewed: Labs reviewed by me, Image(s) reviewed by me Assessment/Plan Assessment/Plan Impression: -NSTEMI, probably type 2 secondary to amphetamine use -amphetamine use -cardiomyopathy -acute on chronic systolic heart failure with ejection fraction 10% -acute hypoxic respiratory failure -AFib/flutter with RVR -cardiogenic shock -acute kidney injury, vasomotor nephropathy -underlying CKD stage IIIb/four -leukocytosis, probable sirs -hypoglycemia Plan: Events: Function worsening. Discussed case with Nephrology. Despite having adequate urine output, patient was not filtering. Plans for HD placement today with possible HD. We will discuss this plan of care with the mother. Blood sugars improving. Tolerating tube feeding. Switch to Nepro with carb steady -cardiology consultation: Recommendations reviewed -nephrology consultation placed -continue current ventilator settings, per pulmonology recommendations -continue current sedation -norepinephrine drip to keep map greater than 65 mmHg -PUD, DVT prophylaxis -stop Lovenox -change antibiotic therapy to doxycycline and cefepime given acute renal failure -titrate FiO2 to keep saturation greater than 93%. Currently on 30% FiO2 -change tube feeding to Nepro given worsening renal function. -repeat labs, chest x-ray, ABG in a.m. -plan of care discussed with patient's motherEufemia in detail. All questions answered. Critical care time spent with patient discussing and formulating plan of care: 90 minutes. This does not include time spent performing procedures. This medical document was created using an electronic medical record system with [employer] dictation system. Although this document has been carefully reviewed, there may still be some phonetic and typographical errors. These areas are purely typographical due to imperfections of the software programs, and do not reflect any compromise in the patient's medical care. Plan discussed with: Patient, Other (RN) My Orders Orders - MARK LILLY NP Procedure Category Date Status Time Chest Portable XY 10/03/24 Resulted 04:00 Abg W/ Co-Ox RT 10/03/24 Logged 06:00 Nutritional PHA 10/03/24 Verified Supplements (Nepro 10:00 Date of Service: Oct 03, 2024 Billing Provider: MARK LILLY NP Common Visit Codes: 96131-[id number] CARE 30-74 MIN MARK LILLY NP Oct 03, 2024 09:51
[2024-10-03] MEDS: metOLazone 5 MG TAB PO ONE (11:24)
--- NOTE | 2024-10-03 11:39 | DVHPN2 ---
Progress Note Date Seen: Oct 03, 2024 Has the PT tested + for MRSA If YES, has PT been informed?: No Medical Necessity Reason Pt with a Central, PICC or Fol: Yes The following are medically ne: Central Line, Venegas Catheter Reason for venegas catheter: Strict I&O Subjective Review of Systems: Deferred Objective vital signs Vital Sign Date Time Temp Pulse Resp B/P (MAP) Pulse Ox O2 Delivery O2 Flow Rate FiO2 10/03/24 11:24 119/70 10/03/24 10:45 98.2 67 22 100 98.2 10/03/24 09:30 30 10/03/24 07:30 Mechanical Ventilator+ Total Intake and Output 10/02/24 10/02/24 10/03/24 15:00 23:00 07:00 Intake Total 719.072 ml 637.072 ml 1311.792 ml Output Total 500 ml 600 ml Balance 719.072 ml 137.072 ml 711.792 ml medications Current Medications Medications Dose Ordered Sig/Conner Route Start Time Stop Time Status Last Admin Dose Admin Aspirin 81 mg DAILY PO 10/01/24 10:00 10/03/24 10:42 81 MG Atorvastatin Calcium 40 mg HS PO 09/30/24 22:00 10/02/24 22:04 40 MG Gabapentin 300 mg HS PO 09/30/24 22:00 10/02/24 22:04 300 MG Carvedilol 6.25 mg BID PO 09/30/24 22:00 Hold 09/30/24 17:32 6.25 MG Morphine Sulfate 2 mg Q30MP PRN IV 09/30/24 15:45 Docusate Sodium 100 mg DAILY PO 10/01/24 10:00 10/03/24 10:41 100 MG Ondansetron HCl 4 mg Q4HP PRN IV 09/30/24 15:45 Nitroglycerin 0.4 mg Q5MINP PRN SL 09/30/24 15:45 Diagnostic Test (Pha) 1 strip ACHS 09/30/24 17:00 10/03/24 06:27 1 STRIP Insulin Human Regular ACHS SC 09/30/24 17:00 10/03/24 06:28 2 UNITS Dextrose 50 ml UD PRN IV 09/30/24 15:45 10/01/24 11:28 50 ML Propofol 100 ml @ 2.628 mls/ hr Q24H IV 09/30/24 19:15 10/03/24 04:01 7.884 MLS/HR Midazolam HCl 50 ml @ 1 mls/hr Q24H IV 09/30/24 19:15 10/03/24 06:29 7 MLS/HR Vasopressin 20 units/Sodium Chloride 100 ml @ 9 mls/hr Q11H7M IV 09/30/24 19:45 Norepinephrine Bitartrate 250 ml @ 3.75 mls/hr Q24H IV 09/30/24 20:00 10/02/24 20:00 15 MLS/HR Pantoprazole Sodium 40 mg DAILY IV 10/01/24 10:00 10/03/24 10:41 40 MG Acetaminophen 650 mg Q6HP PRN NG 10/01/24 02:00 10/01/24 15:00 650 MG Cefepime HCl 50 ml @ 12.5 mls/hr DAILY IV 10/01/24 11:00 10/03/24 10:46 12.5 MLS/HR Doxycycline Hyclate 100 ml @ 50 mls/hr Q12H IV 10/01/24 11:00 10/02/24 23:00 50 MLS/HR Furosemide 80 mg BIDD IV 10/02/24 07:30 10/03/24 06:05 80 MG Enteral Nutritional Formula 1,000 ml 30ML/HR GT 10/03/24 10:00 Examination: GENERAL:Abnormal, LUNGS:Abnormal, ABDOMEN:Abnormal, SKIN:Abnormal, NEURO:Abnormal laboratory and microbiology Laboratory Tests 10/03/24 05:47 Test 10/03/24 05:47 Range/Units Serum Glucose 160 H 74-106 mg/dL Microbiology Date/Time Source Procedure Growth Status 10/01/24 00:36 Urine - [place] Urine Culture - Preliminary Resulted 09/30/24 19:11 Trachea Gram Stain - Final Resulted 09/30/24 19:11 Trachea Respiratory Culture - Preliminary Resulted Problem List/Assessment/Plan Problem List/Assessment/Plan Acute kidney injury likely hemodynamic suspect prerenal but can not exclude ischemic injury in the setting of hypotension Shock Chronic kidney disease stage 3a Acute respiratory failure Methamphetamine intoxication Sepsis Hypokalemia Hypoglycemia DC IVF consent and HD catheter today, Hd treatment after placement purple discoloration of b/l feet indicate poor perfusion Recommend maintain mean arterial pressure greater than 65 Avoid hypotension Strict Is&Os overall poor prognosis critical care time 50min Plan discussed with: Other JAYA TREJO MD Oct 03, 2024 11:39
[2024-10-03] MEDS: SODIUM CHL 0.9% 1000 ML BAG XX ONE (12:15)
--- NOTE | 2024-10-03 12:27 | DVHPN2 ---
Progress Note - Dictate Date Seen: Oct 03, 2024 Has the PT tested + for MRSA If YES, has PT been informed?: No Medical Necessity Reason Pt with a Central, PICC or Fol: Yes The following are medically ne: Central Line, Venegas Catheter Reason for venegas catheter: Strict I&O vital signs Vital Sign Date Time Temp Pulse Resp B/P (MAP) Pulse Ox O2 Delivery O2 Flow Rate FiO2 10/03/24 11:45 67 22 117/70 (86) 99 30 10/03/24 10:45 98.2 98.2 10/03/24 07:30 Mechanical Ventilator+ Total Intake and Output 10/02/24 10/02/24 10/03/24 15:00 23:00 07:00 Intake Total 719.072 ml 637.072 ml 1311.792 ml Output Total 500 ml 600 ml Balance 719.072 ml 137.072 ml 711.792 ml medications Current Medications Medications Dose Ordered Sig/Conner Route Start Time Stop Time Status Last Admin Dose Admin Aspirin 81 mg DAILY PO 10/01/24 10:00 10/03/24 10:42 81 MG Atorvastatin Calcium 40 mg HS PO 09/30/24 22:00 10/02/24 22:04 40 MG Gabapentin 300 mg HS PO 09/30/24 22:00 10/02/24 22:04 300 MG Carvedilol 6.25 mg BID PO 09/30/24 22:00 Hold 09/30/24 17:32 6.25 MG Morphine Sulfate 2 mg Q30MP PRN IV 09/30/24 15:45 Docusate Sodium 100 mg DAILY PO 10/01/24 10:00 10/03/24 10:41 100 MG Ondansetron HCl 4 mg Q4HP PRN IV 09/30/24 15:45 Nitroglycerin 0.4 mg Q5MINP PRN SL 09/30/24 15:45 Diagnostic Test (Pha) 1 strip ACHS 09/30/24 17:00 10/03/24 12:01 1 STRIP Insulin Human Regular ACHS SC 09/30/24 17:00 10/03/24 12:01 2 UNITS Dextrose 50 ml UD PRN IV 09/30/24 15:45 10/01/24 11:28 50 ML Propofol 100 ml @ 2.628 mls/ hr Q24H IV 09/30/24 19:15 10/03/24 12:12 7.884 MLS/HR Midazolam HCl 50 ml @ 1 mls/hr Q24H IV 09/30/24 19:15 10/03/24 06:29 7 MLS/HR Vasopressin 20 units/Sodium Chloride 100 ml @ 9 mls/hr Q11H7M IV 09/30/24 19:45 Norepinephrine Bitartrate 250 ml @ 3.75 mls/hr Q24H IV 09/30/24 20:00 10/02/24 20:00 15 MLS/HR Pantoprazole Sodium 40 mg DAILY IV 10/01/24 10:00 10/03/24 10:41 40 MG Acetaminophen 650 mg Q6HP PRN NG 10/01/24 02:00 10/01/24 15:00 650 MG Cefepime HCl 50 ml @ 12.5 mls/hr DAILY IV 10/01/24 11:00 10/03/24 10:46 12.5 MLS/HR Doxycycline Hyclate 100 ml @ 50 mls/hr Q12H IV 10/01/24 11:00 10/02/24 23:00 50 MLS/HR Furosemide 80 mg BIDD IV 10/02/24 07:30 10/03/24 06:05 80 MG Enteral Nutritional Formula 1,000 ml 30ML/HR GT 10/03/24 10:00 laboratory and microbiology Laboratory Tests 10/03/24 05:47 Test 10/03/24 05:47 Range/Units Serum Glucose 160 H 74-106 mg/dL Assessment/Plan Impression Acute hypoxemic respiratory failure Elevated troponin NSTEMI CIARAN Patient seen and examined in ICU Events On mechanical ventilation S/p intubation PEEP 5, FiO2 30% Labs and imaging reviewed ABG reviewed Management Vent support Titrate to maintain sats 90% or above Sedation holiday daily If patient follows commands, proceed to weaning trial Pressure support 12/13, extubate when ready Continue antibiotics F/u cultures Bronchodilators Monitor renal function Monitor electrolytes Supplement as needed Pressors as needed for hemodynamic support To maintain a mean arterial pressure of 65 mmHg F/u cardiology DVT prophylaxis Critical care time 35 minutes Plan discussed with: ISHMAEL Rhodes MD Oct 03, 2024 12:27
[2024-10-03] MEDS: Nepro With Carb Steady 1 Liter Bottle GT SCH (13:44)
[2024-10-03 13:56] LABS: Hepatitis A Ab IgM Negative; Hepatitis B Core IgM Negative (Negative); Hepatitis B Surface Antigen Negative (Negative); Hepatitis C Antibody Negative (Negative)
--- NOTE | 2024-10-03 14:33 | DVHNC2 ---
Central Line Recorder of insertion practice: Wildlife Conservationist Occupation of bordereau clerk: Other (Hermilo Lilly NP) Indication: Other (HD) Room prepared for procedure: Yes Wildlife Conservationist performed hand hygien: Yes Maximal sterile barrier precau: Mask/Eye shield, Sterile gown, Cap, Sterlie gloves, Large sterlie drape Skin Preparation: Chlorhexidine gluconate Skin preparation completely dr: Yes Central line catheter type: [id number] dialysis Number of lumens: 2 Central line exchanged over a: No Antiseptic ointment applied to: No Post Assessment: Chest X-Ray, Proper placement, No Pneumothorax Informed consent obtained: Yes Notes EBL: 5ml Ultrasound Guidance used. CPT code: 83442 Date of Service: Oct 03, 2024 Billing Provider: MARK LILLY NP Common Visit Codes: PROCEDURE ONLY Procedure Codes: 68036-[id number] NON-TUNNEL CV CATH MARK LILLY NP Oct 03, 2024 14:33
--- NOTE | 2024-10-03 16:05 | DVH ---
EXAM: XY CHEST XRAY 1 VIEW TECHNIQUE: Single frontal chest radiograph CLINICAL HISTORY: line placement COMPARISON: XY CHEST PORTABLE on DOS: 10/03/24, XY CHEST PORTABLE on DOS: 10/02/24, XY CHEST XRAY 1 VIE W on DOS: 10/01/24 Findings/Impression: Frontal chest radiograph demonstrates no acute osseous or superficial soft tissue abnormalities. Right-sided IJ catheter terminates near the superior cavoatrial junction. Enteric tube is descending down into the stomach with the distal tip not visualized. Endotracheal tube terminates 3.5 cm from th e chace. The trachea is midline. Cardiomegaly. No pneumothorax, pleural effusions, or consolidations.
[2024-10-03] MEDS: ALBUMIN 25% 100 ML IV ONE (16:31)
--- NOTE | 2024-10-03 21:14 | DVHPN2 ---
Progress Note - Dictate Date Seen: Oct 03, 2024 Has the PT tested + for MRSA If YES, has PT been informed?: No Medical Necessity Reason Pt with a Central, PICC or Fol: Yes The following are medically ne: Central Line, Venegas Catheter Reason for venegas catheter: Strict I&O Subjective Patient was seen and evaluated in follow-up in the ICU. Patient is intubated and sedated on a ventilator. FiO2 is 30%. BUN 72, LOCKSTITCH ZIPPER SETTER 6, CA 7.8. Chest x-ray shows no significant interval change in appearance of the support lines and tubes or the lungs. vital signs Vital Sign Date Time Temp Pulse Resp B/P (MAP) Pulse Ox O2 Delivery O2 Flow Rate FiO2 10/03/24 12:00 30 10/03/24 11:45 67 22 117/70 (86) 99 10/03/24 10:45 98.2 98.2 10/03/24 07:30 Mechanical Ventilator+ Total Intake and Output 10/02/24 10/02/24 10/03/24 15:00 23:00 07:00 Intake Total 719.072 ml 637.072 ml 1311.792 ml Output Total 500 ml 600 ml Balance 719.072 ml 137.072 ml 711.792 ml medications Current Medications Medications Dose Ordered Sig/Conner Route Start Time Stop Time Status Last Admin Dose Admin Aspirin 81 mg DAILY PO 10/01/24 10:00 10/03/24 10:42 81 MG Atorvastatin Calcium 40 mg HS PO 09/30/24 22:00 10/02/24 22:04 40 MG Gabapentin 300 mg HS PO 09/30/24 22:00 10/02/24 22:04 300 MG Carvedilol 6.25 mg BID PO 09/30/24 22:00 Hold 09/30/24 17:32 6.25 MG Morphine Sulfate 2 mg Q30MP PRN IV 09/30/24 15:45 Docusate Sodium 100 mg DAILY PO 10/01/24 10:00 10/03/24 10:41 100 MG Ondansetron HCl 4 mg Q4HP PRN IV 09/30/24 15:45 Nitroglycerin 0.4 mg Q5MINP PRN SL 09/30/24 15:45 Diagnostic Test (Pha) 1 strip ACHS 09/30/24 17:00 10/03/24 12:01 1 STRIP Insulin Human Regular ACHS SC 09/30/24 17:00 10/03/24 12:01 2 UNITS Dextrose 50 ml UD PRN IV 09/30/24 15:45 10/01/24 11:28 50 ML Propofol 100 ml @ 2.628 mls/ hr Q24H IV 09/30/24 19:15 10/03/24 12:12 7.884 MLS/HR Midazolam HCl 50 ml @ 1 mls/hr Q24H IV 09/30/24 19:15 10/03/24 12:27 7 MLS/HR Vasopressin 20 units/Sodium Chloride 100 ml @ 9 mls/hr Q11H7M IV 09/30/24 19:45 Norepinephrine Bitartrate 250 ml @ 3.75 mls/hr Q24H IV 09/30/24 20:00 10/02/24 20:00 15 MLS/HR Pantoprazole Sodium 40 mg DAILY IV 10/01/24 10:00 10/03/24 10:41 40 MG Acetaminophen 650 mg Q6HP PRN NG 10/01/24 02:00 10/01/24 15:00 650 MG Cefepime HCl 50 ml @ 12.5 mls/hr DAILY IV 10/01/24 11:00 10/03/24 10:46 12.5 MLS/HR Doxycycline Hyclate 100 ml @ 50 mls/hr Q12H IV 10/01/24 11:00 10/02/24 23:00 50 MLS/HR Furosemide 80 mg BIDD IV 10/02/24 07:30 10/03/24 06:05 80 MG Enteral Nutritional Formula 1,000 ml 30ML/HR GT 10/03/24 10:00 objective GENERAL: Ill appearing, intubated on ventilator. EYES: PERRL, EOMI. Anicteric. HENT: Moist mucous membranes. LUNGS: Transmitted breath sounds bilaterally. Decreased air entry bilaterally. CARDIOVASCULAR: Irregular rate and rhythm. ABDOMEN: Soft, non-tender and non-distended. EXTREMITIES: No edema. SKIN: Warm, dry. laboratory and microbiology Laboratory Tests 10/03/24 05:47 Test 10/03/24 05:47 Range/Units Serum Glucose 160 H 74-106 mg/dL Problem List Chest pain. NSTEMI. Atrial Fibrillation with RVR. CIARAN. Community acquired pneumonia. Acute on chronic systolic heart failure EF 10%. DM2 with hyperglycemia. Constipation. Anxiety. Acute respiratory failure. Assessment/Plan Continued all current supportive medical care. Echocardiogram. Aspirin, Lipitor. IV antibiotics as ordered. DVT prophylactics. Morphine for pain management. Vasopressors for hemodynamic support. Additional plan as per the hospital course. Critical care time of 45 minutes provided to include time spent evaluation of patient at bedside, when appropriate patient/family education for diagnosis, treatment plan, review of pertinent medical information and discussion of care with specialty providers and PCP. Mechanical ventilator parameters, treatment and adjustments have personally been reviewed by me and treatment plan by arranging funeral director has also been reviewed. Plan discussed with: Other DESHAUN PETERSON MD Oct 03, 2024 12:47
[2024-10-04] VITALS (107 sets, daily range): BP systolic 84–118; BP diastolic 31–81; PULSE 58–96; RESP 22; TEMP 97.2–99; O2SAT 96–100
[2024-10-04 04:20] LABS: Basophils # (auto) 0.1 10 ^3/uL (0-0.2); Eosinophils # (auto) 0.3 10 ^3/uL (0-0.8); Eosinophils % (auto) 3.2 % (0.0-7.0); Hematocrit 46.2 % (41.0-53.0); Hemoglobin 15.9 g/dL (13.5-17.5); Lymphocytes # (auto) 0.7 10 ^3/uL (0.4-5.4); Mean Corpuscular Hemoglobin 33.6 pg (28.0-32.0); Mean Corpuscular Hgb Conc. 34.4 g/dL (32.0-36.0); Mean Corpuscular Volume 97.8 fL (80.0-100.0); Monocytes # (auto) 0.7 10 ^3/uL (0-1.3); Monocytes % (auto) 8.7 % (0.0-12.0); Neutrophils # (auto) 6.7 10 ^3/uL (1.6-8.6); Neutrophils % (auto) 79.1 % (37.0-80.0); Nucleated Red Blood Cells % 0.2 %; Platelet Count (auto) 115 10^3/uL (140-450); Red Blood Cells 4.73 10^6/uL (4.5-5.90); Red Cell Distribution Width 16.2 % (11.8-14.3); White Blood Cell 8.4 10^3/uL (4.4-10.8)
[2024-10-04 04:26] LABS: Chloride 104 mmol/L (98-107); Sodium 140 mmol/L (136-145)
[2024-10-04 04:27] LABS: Anion Gap 15 (5-15); Carbon Dioxide 21 mmol/L (20-31)
[2024-10-04 04:32] LABS: BUN/Creatinine Ratio 9.9 (10.0-20.0)
[2024-10-04 04:53] LABS: Blood Urea Nitrogen 59 mg/dL (9-23); Calcium 8.1 mg/dL (8.7-10.4); Glucose 149 mg/dL (74-106)
--- NOTE | 2024-10-04 05:35 | DVH ---
CHEST RADIOGRAPH Indication: ACUTE RESP FAILURE Technique: Single frontal view of the chest was obtained COMPARISON: XY CHEST XRAY 1 VIEW on DOS: 10/03/24, XY CHEST PORTABLE on DOS: 10/03/24, XY CHEST PORTABL E on DOS: 10/02/24, XY CHEST XRAY 1 VIEW on DOS: 10/01/24, XY CHEST XRAY 1 VIEW on DOS: 09/30/24 FINDINGS: Lines and Tubes: Unchanged. Lungs: Clear Pleura: No effusion. No pneumothorax. Cardiomediastinal contours: Stable cardiomegaly. Bones: Unremarkable IMPRESSION: 1. No acute disease. 2. Stable cardiomegaly. 3. Lines and tubes unchanged.
[2024-10-04] MEDS: SODIUM CHL 0.9% 1000 ML BAG XX ONE (07:00)
[2024-10-04 07:36] LABS: Base Excess -0.9 mmol/L (-2.0-3.0)
--- NOTE | 2024-10-04 09:59 | DVHPN2 ---
Progress Note - Dictate Date Seen: Oct 04, 2024 Has the PT tested + for MRSA If YES, has PT been informed?: No Medical Necessity Reason Pt with a Central, PICC or Fol: Yes The following are medically ne: Central Line, Venegas Catheter Reason for venegas catheter: Strict I&O vital signs Vital Sign Date Time Temp Pulse Resp B/P (MAP) Pulse Ox O2 Delivery O2 Flow Rate FiO2 10/04/24 09:33 67 22 110/80 (90) 100 30 10/04/24 06:45 98.2 208.8 10/04/24 06:00 Mechanical Ventilator+ Total Intake and Output 10/03/24 10/03/24 10/04/24 15:00 23:00 07:00 Intake Total 405.002 ml 571.560 ml 564.688 ml Output Total 750 ml 450 ml Balance 405.002 ml -178.440 ml 114.688 ml medications Current Medications Medications Dose Ordered Sig/Conner Route Start Time Stop Time Status Last Admin Dose Admin Aspirin 81 mg DAILY PO 10/01/24 10:00 10/03/24 10:42 81 MG Atorvastatin Calcium 40 mg HS PO 09/30/24 22:00 10/03/24 22:38 40 MG Gabapentin 300 mg HS PO 09/30/24 22:00 10/03/24 22:38 300 MG Carvedilol 6.25 mg BID PO 09/30/24 22:00 Hold 09/30/24 17:32 6.25 MG Morphine Sulfate 2 mg Q30MP PRN IV 09/30/24 15:45 Docusate Sodium 100 mg DAILY PO 10/01/24 10:00 10/03/24 10:41 100 MG Ondansetron HCl 4 mg Q4HP PRN IV 09/30/24 15:45 Nitroglycerin 0.4 mg Q5MINP PRN SL 09/30/24 15:45 Diagnostic Test (Pha) 1 strip ACHS 09/30/24 17:00 10/04/24 06:49 1 STRIP Insulin Human Regular ACHS SC 09/30/24 17:00 10/04/24 06:49 2 UNITS Dextrose 50 ml UD PRN IV 09/30/24 15:45 10/01/24 11:28 50 ML Propofol 100 ml @ 2.628 mls/ hr Q24H IV 09/30/24 19:15 10/04/24 00:10 7.884 MLS/HR Midazolam HCl 50 ml @ 1 mls/hr Q24H IV 09/30/24 19:15 10/04/24 07:58 7 MLS/HR Vasopressin 20 units/Sodium Chloride 100 ml @ 9 mls/hr Q11H7M IV 09/30/24 19:45 Norepinephrine Bitartrate 250 ml @ 3.75 mls/hr Q24H IV 09/30/24 20:00 10/03/24 12:20 15 MLS/HR Pantoprazole Sodium 40 mg DAILY IV 10/01/24 10:00 10/03/24 10:41 40 MG Acetaminophen 650 mg Q6HP PRN NG 10/01/24 02:00 10/01/24 15:00 650 MG Cefepime HCl 50 ml @ 12.5 mls/hr DAILY IV 10/01/24 11:00 10/03/24 10:46 12.5 MLS/HR Doxycycline Hyclate 100 ml @ 50 mls/hr Q12H IV 10/01/24 11:00 10/03/24 22:54 50 MLS/HR Furosemide 80 mg BIDD IV 10/02/24 07:30 10/04/24 05:39 80 MG Enteral Nutritional Formula 1,000 ml 30ML/HR GT 10/03/24 10:00 10/03/24 13:44 1,000 ML laboratory and microbiology Laboratory Tests 10/04/24 03:10 Test 10/04/24 03:10 Range/Units Serum Glucose 149 H 74-106 mg/dL Assessment/Plan Impression Acute hypoxemic respiratory failure Elevated troponin NSTEMI CIARAN Patient seen and examined in ICU Events On mechanical ventilation S/p intubation PEEP 5, FiO2 30% due for HD today sedated levophed drip Labs and imaging reviewed ABG reviewed stable Management Vent support Titrate to maintain sats 90% or above Sedation holiday If patient follows commands, proceed to weaning trial Pressure support 12/13, extubate when ready Continue antibiotics F/u cultures Bronchodilators Monitor renal function Monitor electrolytes Supplement as needed Pressors as needed for hemodynamic support To maintain a mean arterial pressure of 65 mmHg F/u cardiology DVT prophylaxis Critical care time 35 minutes Plan discussed with: Other (rn) ISHMAEL MARROQUIN MD Oct 04, 2024 09:59
--- NOTE | 2024-10-04 10:31 | DVHPN2 ---
Progress Note - Dictate Date Seen: Oct 04, 2024 Has the PT tested + for MRSA If YES, has PT been informed?: No Medical Necessity Reason Pt with a Central, PICC or Fol: Yes The following are medically ne: Central Line, Venegas Catheter Reason for venegas catheter: Strict I&O vital signs Vital Sign Date Time Temp Pulse Resp B/P (MAP) Pulse Ox O2 Delivery O2 Flow Rate FiO2 10/04/24 09:33 67 22 110/80 (90) 100 30 10/04/24 06:45 98.2 208.8 10/04/24 06:00 Mechanical Ventilator+ Total Intake and Output 10/03/24 10/03/24 10/04/24 15:00 23:00 07:00 Intake Total 405.002 ml 571.560 ml 564.688 ml Output Total 750 ml 450 ml Balance 405.002 ml -178.440 ml 114.688 ml medications Current Medications Medications Dose Ordered Sig/Conner Route Start Time Stop Time Status Last Admin Dose Admin Aspirin 81 mg DAILY PO 10/01/24 10:00 10/04/24 10:18 81 MG Atorvastatin Calcium 40 mg HS PO 09/30/24 22:00 10/03/24 22:38 40 MG Gabapentin 300 mg HS PO 09/30/24 22:00 10/03/24 22:38 300 MG Carvedilol 6.25 mg BID PO 09/30/24 22:00 Hold 09/30/24 17:32 6.25 MG Morphine Sulfate 2 mg Q30MP PRN IV 09/30/24 15:45 Docusate Sodium 100 mg DAILY PO 10/01/24 10:00 10/03/24 10:41 100 MG Ondansetron HCl 4 mg Q4HP PRN IV 09/30/24 15:45 Nitroglycerin 0.4 mg Q5MINP PRN SL 09/30/24 15:45 Diagnostic Test (Pha) 1 strip ACHS 09/30/24 17:00 10/04/24 06:49 1 STRIP Insulin Human Regular ACHS SC 09/30/24 17:00 10/04/24 06:49 2 UNITS Dextrose 50 ml UD PRN IV 09/30/24 15:45 10/01/24 11:28 50 ML Propofol 100 ml @ 2.628 mls/ hr Q24H IV 09/30/24 19:15 10/04/24 09:23 7.884 MLS/HR Midazolam HCl 50 ml @ 1 mls/hr Q24H IV 09/30/24 19:15 10/04/24 07:58 7 MLS/HR Vasopressin 20 units/Sodium Chloride 100 ml @ 9 mls/hr Q11H7M IV 09/30/24 19:45 Norepinephrine Bitartrate 250 ml @ 3.75 mls/hr Q24H IV 09/30/24 20:00 10/03/24 12:20 15 MLS/HR Pantoprazole Sodium 40 mg DAILY IV 10/01/24 10:00 10/04/24 10:18 40 MG Acetaminophen 650 mg Q6HP PRN NG 10/01/24 02:00 10/01/24 15:00 650 MG Cefepime HCl 50 ml @ 12.5 mls/hr DAILY IV 10/01/24 11:00 10/04/24 10:18 12.5 MLS/HR Doxycycline Hyclate 100 ml @ 50 mls/hr Q12H IV 10/01/24 11:00 10/03/24 22:54 50 MLS/HR Furosemide 80 mg BIDD IV 10/02/24 07:30 10/04/24 05:39 80 MG Enteral Nutritional Formula 1,000 ml 30ML/HR GT 10/03/24 10:00 10/03/24 13:44 1,000 ML laboratory and microbiology Laboratory Tests 10/04/24 03:10 Test 10/04/24 03:10 Range/Units Serum Glucose 149 H 74-106 mg/dL Assessment/Plan Impression Acute hypoxemic respiratory failure Elevated troponin NSTEMI CIARAN Patient seen and examined in ICU Events On mechanical ventilation S/p intubation PEEP 5, FiO2 30% tongue swelling reported by RN due for HD Labs and imaging reviewed ABG reviewed stable Management Vent support Titrate to maintain sats 90% or above after HD Sedation holiday If patient follows commands, proceed to weaning trial Pressure support 12/13, extubate when ready Continue antibiotics F/u cultures Bronchodilators Monitor renal function Monitor electrolytes Supplement as needed Pressors as needed for hemodynamic support To maintain a mean arterial pressure of 65 mmHg F/u cardiology DVT prophylaxis Critical care time 35 minutes Plan discussed with: Other (rn) ISHMAEL MARROQUIN MD Oct 04, 2024 10:31
--- NOTE | 2024-10-04 11:40 | DVHPN2 ---
Progress Note Date Seen: Oct 04, 2024 Has the PT tested + for MRSA If YES, has PT been informed?: No Medical Necessity Reason Pt with a Central, PICC or Fol: Yes The following are medically ne: Central Line, Venegas Catheter Reason for venegas catheter: Strict I&O Subjective Review of Systems: Deferred Objective vital signs Vital Sign Date Time Temp Pulse Resp B/P (MAP) Pulse Ox O2 Delivery O2 Flow Rate FiO2 10/04/24 11:19 64 22 111/77 (88) 99 30 10/04/24 11:00 99.0 210.2 10/04/24 08:20 Mechanical Ventilator+ Total Intake and Output 10/03/24 10/03/24 10/04/24 15:00 23:00 07:00 Intake Total 405.002 ml 571.560 ml 564.688 ml Output Total 750 ml 450 ml Balance 405.002 ml -178.440 ml 114.688 ml medications Current Medications Medications Dose Ordered Sig/Conner Route Start Time Stop Time Status Last Admin Dose Admin Aspirin 81 mg DAILY PO 10/01/24 10:00 10/04/24 10:18 81 MG Atorvastatin Calcium 40 mg HS PO 09/30/24 22:00 10/03/24 22:38 40 MG Gabapentin 300 mg HS PO 09/30/24 22:00 10/03/24 22:38 300 MG Carvedilol 6.25 mg BID PO 09/30/24 22:00 Hold 09/30/24 17:32 6.25 MG Morphine Sulfate 2 mg Q30MP PRN IV 09/30/24 15:45 Docusate Sodium 100 mg DAILY PO 10/01/24 10:00 10/03/24 10:41 100 MG Ondansetron HCl 4 mg Q4HP PRN IV 09/30/24 15:45 Nitroglycerin 0.4 mg Q5MINP PRN SL 09/30/24 15:45 Diagnostic Test (Pha) 1 strip ACHS 09/30/24 17:00 10/04/24 06:49 1 STRIP Insulin Human Regular ACHS SC 09/30/24 17:00 10/04/24 06:49 2 UNITS Dextrose 50 ml UD PRN IV 09/30/24 15:45 10/01/24 11:28 50 ML Propofol 100 ml @ 2.628 mls/ hr Q24H IV 09/30/24 19:15 10/04/24 09:23 7.884 MLS/HR Midazolam HCl 50 ml @ 1 mls/hr Q24H IV 09/30/24 19:15 10/04/24 07:58 7 MLS/HR Vasopressin 20 units/Sodium Chloride 100 ml @ 9 mls/hr Q11H7M IV 09/30/24 19:45 Norepinephrine Bitartrate 250 ml @ 3.75 mls/hr Q24H IV 09/30/24 20:00 10/03/24 12:20 15 MLS/HR Pantoprazole Sodium 40 mg DAILY IV 10/01/24 10:00 10/04/24 10:18 40 MG Acetaminophen 650 mg Q6HP PRN NG 10/01/24 02:00 10/01/24 15:00 650 MG Cefepime HCl 50 ml @ 12.5 mls/hr DAILY IV 10/01/24 11:00 10/04/24 10:18 12.5 MLS/HR Doxycycline Hyclate 100 ml @ 50 mls/hr Q12H IV 10/01/24 11:00 10/04/24 11:19 50 MLS/HR Furosemide 80 mg BIDD IV 10/02/24 07:30 10/04/24 05:39 80 MG Enteral Nutritional Formula 1,000 ml 30ML/HR GT 10/03/24 10:00 10/03/24 13:44 1,000 ML Examination: GENERAL:Abnormal, LUNGS:Abnormal, CVS:Abnormal, ABDOMEN:Abnormal, SKIN:Abnormal laboratory and microbiology Laboratory Tests 10/04/24 03:10 Test 10/04/24 03:10 Range/Units Serum Glucose 149 H 74-106 mg/dL Microbiology Date/Time Source Procedure Growth Status 10/01/24 00:36 Urine - [place] Urine Culture - Final Complete 09/30/24 19:11 Trachea Gram Stain - Final Complete 09/30/24 19:11 Respiratory Culture - Final Staphylococcus aureus Pseudomonas aeruginosa Klebsiella pneumoniae Complete Problem List/Assessment/Plan Problem List/Assessment/Plan Acute kidney injury likely hemodynamic suspect prerenal but can not exclude ischemic injury in the setting of hypotension Shock Chronic kidney disease stage 3a Acute respiratory failure Methamphetamine intoxication Sepsis Hypokalemia Hypoglycemia tentative HD today continue IV diuretics purple discoloration of b/l feet indicate poor perfusion Recommend maintain mean arterial pressure greater than 65 Avoid hypotension Strict Is&Os overall poor prognosis critical care time 50min Plan discussed with: Other My Orders My Orders Orders - JAYA TREJO MD Procedure Category Date Status Time Hemodialysis Orders ORDERS 10/03/24 Transmitted 12:04 Dialysis Nursing ANICETO 10/03/24 In Process Message 12:04 Document Fluid Input ANICETO 10/03/24 In Process And Outpu 12:04 Hemodialysis Orders ORDERS 10/04/24 Transmitted 07:00 Dialysis Nursing ANICETO 10/04/24 In Process Message 07:00 Document Fluid Input ANICETO 10/04/24 In Process And Outpu 07:00 Dietary Evaluation Review Comments: 1) Initiate Pro-Stat @ 30 mL qd. Flush 30 mL H2O AC/PC. 2) Increase TF to 35 mL/hr goal rate. TF rate will provide 1612 kcals, 83g Pro (including Pro-Stat), and 626 mL free H2O per 24 hrs. TF rate will meet ~ 79% estimated energy needs and 75% estimated protein needs 3) Initiate vitamin C @ 500 mg bid and zinc sulfate @ 220 mg qd for 7-10 days. 4) Consider Nephro-[place] @ 1 tb qd 5) Follow-up with nephrology, cardiology, pulmonology, and social media strategist 6) Continue to monitor I&O, labs, and skin integrity Expected Outcomes/Goals: 1) labs to improve 2) wound to improve 3) diet to advance 4) f/u in 2-3 days Critical Care Time (mins): 35 JAYA TREJO MD Oct 04, 2024 11:40
[2024-10-04] MEDS ORDERED: DEXTROSE (50%) 50ML SYRG IV PRN (12:00)
[2024-10-04] MEDS: ACCU-CHEK COMFORT CURVE STRIP VI SCH (12:16)
[2024-10-04] MEDS: InsuLIN REG 1unit/0.01ml Soln (100units/ml) SC SCH (12:22)
--- NOTE | 2024-10-04 13:38 | DVHPN2 ---
Subjective Still intubated and sedated Reviewed: Care Plan, H&P, Labs, Medications, Previous Orders, Radiology, Other (Consultations) Changes from previous H/P or p: No Changes Objective Vitals Vital Signs Date Time Temp Pulse Resp B/P (MAP) Pulse Ox O2 Delivery O2 Flow Rate FiO2 10/04/24 13:15 99.0 65 22 113/73 (86) 100 210.2 10/04/24 12:00 30 10/04/24 12:00 Mechanical Ventilator+ Intake/Output Intake and Output 10/04/24 07:00 Intake Total 1563.550 ml Output Total 1200 ml Balance 363.550 ml IV Total 1005.550 ml Tube Feeding 558 ml Output Urine Total 1200 ml # Bowel Movements 1 General Appearance: Other (Intubated and sedated) HEENT: Atraumatic Lungs: Other (Mechanical ventilation sounds) Cardiovascular: Other (Irregularly irregular) Abdomen: Soft Genitourinary: Other (Inman's catheter) Musculoskeletal: Other (Motor removed) Extremities: Other (Dusky lower extremities) Neuro: Other (Intubated and sedated) Psych/Mental Status: Other (Intubated and sedated) Medications Current Medications Medications Dose Ordered Sig/Conner Route Start Time Stop Time Status Last Admin Dose Admin Aspirin 81 mg DAILY PO 10/01/24 10:00 10/04/24 10:18 81 MG Atorvastatin Calcium 40 mg HS PO 09/30/24 22:00 10/03/24 22:38 40 MG Gabapentin 300 mg HS PO 09/30/24 22:00 10/03/24 22:38 300 MG Carvedilol 6.25 mg BID PO 09/30/24 22:00 Hold 09/30/24 17:32 6.25 MG Morphine Sulfate 2 mg Q30MP PRN IV 09/30/24 15:45 Ondansetron HCl 4 mg Q4HP PRN IV 09/30/24 15:45 Nitroglycerin 0.4 mg Q5MINP PRN SL 09/30/24 15:45 Propofol 100 ml @ 2.628 mls/ hr Q24H IV 09/30/24 19:15 10/04/24 09:23 7.884 MLS/HR Midazolam HCl 50 ml @ 1 mls/hr Q24H IV 09/30/24 19:15 10/04/24 07:58 7 MLS/HR Vasopressin 20 units/Sodium Chloride 100 ml @ 9 mls/hr Q11H7M IV 09/30/24 19:45 Norepinephrine Bitartrate 250 ml @ 3.75 mls/hr Q24H IV 09/30/24 20:00 10/03/24 12:20 15 MLS/HR Pantoprazole Sodium 40 mg DAILY IV 10/01/24 10:00 10/04/24 10:18 40 MG Acetaminophen 650 mg Q6HP PRN NG 10/01/24 02:00 10/01/24 15:00 650 MG Cefepime HCl 50 ml @ 12.5 mls/hr DAILY IV 10/01/24 11:00 10/04/24 10:18 12.5 MLS/HR Doxycycline Hyclate 100 ml @ 50 mls/hr Q12H IV 10/01/24 11:00 10/04/24 11:19 50 MLS/HR Furosemide 80 mg BIDD IV 10/02/24 07:30 10/04/24 05:39 80 MG Enteral Nutritional Formula 1,000 ml 30ML/HR GT 10/03/24 10:00 10/03/24 13:44 1,000 ML Docusate Sodium 100 mg DAILY GT 10/05/24 10:00 Diagnostic Test (Pha) 1 strip Q6HR 10/04/24 12:00 10/04/24 12:16 1 STRIP Insulin Human Regular Q6HR SC 10/04/24 12:00 10/04/24 12:22 2 UNITS Dextrose 50 ml UD PRN IV 10/04/24 12:00 Laboratory Results Laboratory Tests 10/04/24 03:10 Chemistry Test 10/04/24 03:10 Calcium Level 8.1 mg/dL (8.7-10.4) L Urinalysis Test 10/01/24 00:36 Urine Creatinine 241.60 mg/dL (30.0-125.0) H Urine Sodium 35 mmol/L (40-220) L Blood Gas Results Test 10/04/24 07:22 Arterial Blood pH 7.458 (7.350-7.450) FiO2 % 30.0 Microbiology Microbiology Date/Time Source Procedure Growth Status 10/01/24 00:36 Urine - [place] Urine Culture - Final Complete 09/30/24 19:11 Trachea Gram Stain - Final Complete 09/30/24 19:11 Respiratory Culture - Final Staphylococcus aureus Pseudomonas aeruginosa Klebsiella pneumoniae Complete Labs and/or images reviewed: Labs reviewed by me, Image(s) reviewed by me Assessment/Plan Assessment/Plan Covering: Acute metabolic/toxic encephalopathy Acute hypoxic respiratory failure due to multi-organism pneumonia Septic shock due to multi-organism pneumonia Leukocytosis due to septic shock Thrombocytopenia due to septic shock CIARAN on CKD; requiring hemodialysis; most likely vasomotor nephropathy Electrolytes imbalance in the setting of CIARAN in septic shock Acute on chronic systolic heart failure Atrial fibrillation with RVR NSTEMI; elevated troponin levels; most likely demand ischemia in the setting of septic shock; type 2 [place] Uncontrolled diabetes mellitus type 2 with hyperglycemia Polysubstance (alcohol, marijuana, methamphetamine, and tobacco) use disorder Reviewed lab work including ABGs Reviewed cultures including sputum culture Reviewed imaging studies including chest x-rays Continue IV antibiotics Continue IV pressors as indicated Continue mechanical ventilation for oxygen therapy Continue sedation as indicated Continue insulin therapy with hypoglycemia Cardiology, nephrology, and pulmonology are following Telemetry Continue close monitoring Goals of care discussed with the patient's mother for 20 minutes; full code Critical care time of 110 minutes Late Entry. This medical document was created using an electronic medical record system with computerized dictation system. Although this document has been carefully reviewed, there might still be some phonetic and typographical errors. These areas are purely typographical due to imperfections of the software programs, and do not reflect any compromise in the patient's medical care. Plan discussed with: Other (Nurse; patient's mother; patient's brother) My Orders Orders - LEONARDO HUMPHREY MD Procedure Category Date Status Time Docusate Sodium PHA 10/05/24 In Process Liquid (Colace Liquid) 10:00 Glucose Blood PHA 10/04/24 In Process (Accu-Chek Comfort 12:00 Insulin R (Human) PHA 10/04/24 In Process (Insulin R) 12:00 Dextrose 50% Syringe PHA 10/04/24 In Process 12:00 Date of Service: Oct 04, 2024 Billing Provider: LEONARDO HUMPHREY MD Common Visit Codes: 92218-[id number] CARE 30-74 MIN (110 minutes), 53424-[id number] CARE-EACH +30MIN Secondary Visit Codes: 04705-[id number] CARE PLAN 30 MINUTES (20 minutes) LEONARDO HUMPHREY MD Oct 04, 2024 13:38
[2024-10-04] MEDS: ALBUMIN 25% 100 ML IV ONE (14:15)
--- NOTE | 2024-10-04 19:25 | DVHPN2 ---
Progress Note - Dictate Date Seen: Oct 04, 2024 Has the PT tested + for MRSA If YES, has PT been informed?: No Medical Necessity Reason Pt with a Central, PICC or Fol: Yes The following are medically ne: Central Line, Venegas Catheter Reason for veengas catheter: Strict I&O Subjective Patient was seen and evaluated in follow up in the ICU. Patient is intubated and sedated on a ventilator. FiO2 is 30%. Patient receiving vasopressors for BP support. BUN 59, WORSTED WINDER 5.93, CA 8.1. Chest x-ray shows stable cardiomegaly. vital signs Vital Sign Date Time Temp Pulse Resp B/P (MAP) Pulse Ox O2 Delivery O2 Flow Rate FiO2 10/04/24 11:19 64 22 111/77 (88) 99 30 10/04/24 11:00 99.0 210.2 10/04/24 08:20 Mechanical Ventilator+ Total Intake and Output 10/03/24 10/03/24 10/04/24 15:00 23:00 07:00 Intake Total 405.002 ml 571.560 ml 564.688 ml Output Total 750 ml 450 ml Balance 405.002 ml -178.440 ml 114.688 ml medications Current Medications Medications Dose Ordered Sig/Conner Route Start Time Stop Time Status Last Admin Dose Admin Aspirin 81 mg DAILY PO 10/01/24 10:00 10/04/24 10:18 81 MG Atorvastatin Calcium 40 mg HS PO 09/30/24 22:00 10/03/24 22:38 40 MG Gabapentin 300 mg HS PO 09/30/24 22:00 10/03/24 22:38 300 MG Carvedilol 6.25 mg BID PO 09/30/24 22:00 Hold 09/30/24 17:32 6.25 MG Morphine Sulfate 2 mg Q30MP PRN IV 09/30/24 15:45 Ondansetron HCl 4 mg Q4HP PRN IV 09/30/24 15:45 Nitroglycerin 0.4 mg Q5MINP PRN SL 09/30/24 15:45 Propofol 100 ml @ 2.628 mls/ hr Q24H IV 09/30/24 19:15 10/04/24 09:23 7.884 MLS/HR Midazolam HCl 50 ml @ 1 mls/hr Q24H IV 09/30/24 19:15 10/04/24 07:58 7 MLS/HR Vasopressin 20 units/Sodium Chloride 100 ml @ 9 mls/hr Q11H7M IV 09/30/24 19:45 Norepinephrine Bitartrate 250 ml @ 3.75 mls/hr Q24H IV 09/30/24 20:00 10/03/24 12:20 15 MLS/HR Pantoprazole Sodium 40 mg DAILY IV 10/01/24 10:00 10/04/24 10:18 40 MG Acetaminophen 650 mg Q6HP PRN NG 10/01/24 02:00 10/01/24 15:00 650 MG Cefepime HCl 50 ml @ 12.5 mls/hr DAILY IV 10/01/24 11:00 10/04/24 10:18 12.5 MLS/HR Doxycycline Hyclate 100 ml @ 50 mls/hr Q12H IV 10/01/24 11:00 10/04/24 11:19 50 MLS/HR Furosemide 80 mg BIDD IV 10/02/24 07:30 10/04/24 05:39 80 MG Enteral Nutritional Formula 1,000 ml 30ML/HR GT 10/03/24 10:00 10/03/24 13:44 1,000 ML Docusate Sodium 100 mg DAILY GT 10/05/24 10:00 Diagnostic Test (Pha) 1 strip Q6HR 10/04/24 12:00 10/04/24 12:16 1 STRIP Insulin Human Regular Q6HR SC 10/04/24 12:00 10/04/24 12:22 2 UNITS Dextrose 50 ml UD PRN IV 10/04/24 12:00 objective GENERAL: Ill appearing, intubated on ventilator. EYES: PERRL, EOMI. Anicteric. HENT: Moist mucous membranes. LUNGS: Transmitted breath sounds bilaterally. Decreased air entry bilaterally. CARDIOVASCULAR: Irregular rate and rhythm. ABDOMEN: Soft, non-tender and non-distended. EXTREMITIES: No edema. SKIN: Warm, dry. laboratory and microbiology Laboratory Tests 10/04/24 03:10 Test 10/04/24 03:10 Range/Units Serum Glucose 149 H 74-106 mg/dL Problem List Chest pain. NSTEMI. Atrial Fibrillation with RVR. CIARAN. Community acquired pneumonia. Acute on chronic systolic heart failure EF 10%. DM2 with hyperglycemia. Constipation. Anxiety. Acute respiratory failure. Assessment/Plan Continued all current supportive medical care. Echocardiogram. Aspirin, Lipitor. IV antibiotics as ordered. DVT prophylactics. Morphine for pain management. Vasopressors for hemodynamic support. Additional plan as per the hospital course. Critical care time of 45 minutes provided to include time spent evaluation of patient at bedside, when appropriate patient/family education for diagnosis, treatment plan, review of pertinent medical information and discussion of care with specialty providers and PCP. Mechanical ventilator parameters, treatment and adjustments have personally been reviewed by me and treatment plan by senior education specialist has also been reviewed. Dietary Evaluation Review Comments: 1) Initiate Pro-Stat @ 30 mL qd. Flush 30 mL H2O AC/PC. 2) Increase TF to 35 mL/hr goal rate. TF rate will provide 1612 kcals, 83g Pro (including Pro-Stat), and 626 mL free H2O per 24 hrs. TF rate will meet ~ 79% estimated energy needs and 75% estimated protein needs 3) Initiate vitamin C @ 500 mg bid and zinc sulfate @ 220 mg qd for 7-10 days. 4) Consider Nephro-[place] @ 1 tb qd 5) Follow-up with nephrology, cardiology, pulmonology, and social worker school 6) Continue to monitor I&O, labs, and skin integrity Expected Outcomes/Goals: 1) labs to improve 2) wound to improve 3) diet to advance 4) f/u in 2-3 days Plan discussed with: DESHAUN Jackson MD Oct 04, 2024 12:53
[2024-10-05] VITALS (112 sets, daily range): BP systolic 86–120; BP diastolic 59–81; PULSE 56–64; RESP 16–22; TEMP 97.9–99.1; O2SAT 97–100
[2024-10-05 04:17] LABS: Basophils # (auto) 0.1 10 ^3/uL (0-0.2); Basophils % (auto) 0.6 % (0.0-2.0); Eosinophils # (auto) 0.4 10 ^3/uL (0-0.8); Eosinophils % (auto) 4.9 % (0.0-7.0); Hematocrit 47.4 % (41.0-53.0); Hemoglobin 16.1 g/dL (13.5-17.5); Lymphocytes # (auto) 0.6 10 ^3/uL (0.4-5.4); Lymphocytes % (auto) 6.7 % (10.0-50.0); Mean Corpuscular Hemoglobin 33.3 pg (28.0-32.0); Mean Corpuscular Volume 97.7 fL (80.0-100.0); Monocytes # (auto) 0.9 10 ^3/uL (0-1.3); Monocytes % (auto) 10.9 % (0.0-12.0); Neutrophils # (auto) 6.7 10 ^3/uL (1.6-8.6); Neutrophils % (auto) 76.9 % (37.0-80.0); Nucleated Red Blood Cells % 0.2 %; Platelet Count (auto) 83 10^3/uL (140-450); Red Blood Cells 4.85 10^6/uL (4.5-5.90); Red Cell Distribution Width 16.6 % (11.8-14.3); White Blood Cell 8.7 10^3/uL (4.4-10.8)
[2024-10-05 04:26] LABS: Anion Gap 12 (5-15); Carbon Dioxide 24 mmol/L (20-31); Chloride 103 mmol/L (98-107); Sodium 139 mmol/L (136-145)
[2024-10-05 04:29] LABS: Calcium 8.5 mg/dL (8.7-10.4)
[2024-10-05 04:32] LABS: BUN/Creatinine Ratio 9.2 (10.0-20.0)
[2024-10-05 04:33] LABS: Blood Urea Nitrogen 55 mg/dL (9-23); Glucose 122 mg/dL (74-106)
--- NOTE | 2024-10-05 05:40 | DVH ---
CHEST RADIOGRAPH Indication: Intubated. Thank You! Technique: Single frontal view of the chest was obtained COMPARISON: XY CHEST PORTABLE on DOS: 10/04/24, XY CHEST XRAY 1 VIEW on DOS: 10/03/24, XY CHEST PORTABL E on DOS: 10/03/24, XY CHEST PORTABLE on DOS: 10/02/24, XY CHEST XRAY 1 VIEW on DOS: 10/01/24 FINDINGS: Lines and Tubes: Unchanged. Lungs: Clear Pleura: No effusion. No pneumothorax. Cardiomediastinal contours: Cardiomegaly. Bones: Unremarkable IMPRESSION: 1. No acute disease. 2. Stable cardiomegaly. 3. Lines and tubes unchanged.
[2024-10-05 07:45] LABS: Base Excess -7.7 mmol/L (-2.0-3.0)
--- NOTE | 2024-10-05 09:20 | DVHPN2 ---
Progress Note - Dictate Date Seen: Oct 05, 2024 Has the PT tested + for MRSA If YES, has PT been informed?: No Medical Necessity Reason Pt with a Central, PICC or Fol: Yes The following are medically ne: Central Line, Venegas Catheter Reason for venegas catheter: Strict I&O vital signs Vital Sign Date Time Temp Pulse Resp B/P (MAP) Pulse Ox O2 Delivery O2 Flow Rate FiO2 10/05/24 08:20 30 10/05/24 08:20 57 16 99 Mechanical Ventilator+ 10/05/24 07:56 86/64 (71) 10/05/24 06:45 98.2 208.8 Total Intake and Output 10/04/24 10/04/24 10/05/24 15:00 23:00 07:00 Intake Total 359.65 ml 415.070 ml 534.688 ml Output Total 2450 ml 425 ml Balance 359.65 ml -2034.930 ml 109.688 ml medications Current Medications Medications Dose Ordered Sig/Conner Route Start Time Stop Time Status Last Admin Dose Admin Aspirin 81 mg DAILY PO 10/01/24 10:00 10/04/24 10:18 81 MG Atorvastatin Calcium 40 mg HS PO 09/30/24 22:00 10/04/24 21:36 40 MG Gabapentin 300 mg HS PO 09/30/24 22:00 10/04/24 21:36 300 MG Carvedilol 6.25 mg BID PO 09/30/24 22:00 Hold 09/30/24 17:32 6.25 MG Morphine Sulfate 2 mg Q30MP PRN IV 09/30/24 15:45 Ondansetron HCl 4 mg Q4HP PRN IV 09/30/24 15:45 Nitroglycerin 0.4 mg Q5MINP PRN SL 09/30/24 15:45 Propofol 100 ml @ 2.628 mls/ hr Q24H IV 09/30/24 19:15 10/05/24 06:22 7.884 MLS/HR Midazolam HCl 50 ml @ 1 mls/hr Q24H IV 09/30/24 19:15 10/05/24 00:10 5 MLS/HR Vasopressin 20 units/Sodium Chloride 100 ml @ 9 mls/hr Q11H7M IV 09/30/24 19:45 Norepinephrine Bitartrate 250 ml @ 3.75 mls/hr Q24H IV 09/30/24 20:00 10/03/24 12:20 15 MLS/HR Pantoprazole Sodium 40 mg DAILY IV 10/01/24 10:00 10/04/24 10:18 40 MG Acetaminophen 650 mg Q6HP PRN NG 10/01/24 02:00 10/01/24 15:00 650 MG Cefepime HCl 50 ml @ 12.5 mls/hr DAILY IV 10/01/24 11:00 10/04/24 10:18 12.5 MLS/HR Doxycycline Hyclate 100 ml @ 50 mls/hr Q12H IV 10/01/24 11:00 10/04/24 22:48 50 MLS/HR Furosemide 80 mg BIDD IV 10/02/24 07:30 10/05/24 05:41 80 MG Enteral Nutritional Formula 1,000 ml 30ML/HR GT 10/03/24 10:00 10/04/24 16:14 1,000 ML Docusate Sodium 100 mg DAILY GT 10/05/24 10:00 Diagnostic Test (Pha) 1 strip Q6HR 10/04/24 12:00 10/05/24 05:41 1 STRIP Insulin Human Regular Q6HR SC 10/04/24 12:00 10/04/24 23:46 2 UNITS Dextrose 50 ml UD PRN IV 10/04/24 12:00 laboratory and microbiology Laboratory Tests 10/05/24 02:57 Test 10/05/24 02:57 Range/Units Serum Glucose 122 H 74-106 mg/dL Assessment/Plan Impression Acute hypoxemic respiratory failure Elevated troponin NSTEMI CIARAN started on HD cardiomyopathy EF 10% substance abuse pos've for amphetamines Patient seen and examined in ICU Events On mechanical ventilation S/p intubation PEEP 5, FiO2 30% abg reviewed Labs and imaging reviewed Management Vent support Titrate to maintain sats 90% or above continue HD per nephrology Sedation holiday daily If patient follows commands, proceed to weaning trial Pressure support 12/13, extubate when ready Continue antibiotics F/u cultures Bronchodilators Monitor renal function Monitor electrolytes Supplement as needed Pressors as needed for hemodynamic support To maintain a mean arterial pressure of 65 mmHg F/u cardiology DVT prophylaxis Critical care time 35 minutes Dietary Evaluation Review Comments: 1) Initiate Pro-Stat @ 30 mL qd. Flush 30 mL H2O AC/PC. 2) Increase TF to 35 mL/hr goal rate. TF rate will provide 1612 kcals, 83g Pro (including Pro-Stat), and 626 mL free H2O per 24 hrs. TF rate will meet ~ 79% estimated energy needs and 75% estimated protein needs 3) Initiate vitamin C @ 500 mg bid and zinc sulfate @ 220 mg qd for 7-10 days. 4) Consider Nephro-[place] @ 1 tb qd 5) Follow-up with nephrology, cardiology, pulmonology, and licensed clinical social worker 6) Continue to monitor I&O, labs, and skin integrity Expected Outcomes/Goals: 1) labs to improve 2) wound to improve 3) diet to advance 4) f/u in 2-3 days Plan discussed with: Other (rn) ISHMAEL MARROQUIN MD Oct 05, 2024 09:20
[2024-10-05] MEDS: DOCUSATE ORAL LIQUID 100 MG/10 ML UD GT SCH (10:00)
--- NOTE | 2024-10-05 11:51 | DVHPN2 ---
Progress Note Date Seen: Oct 05, 2024 Has the PT tested + for MRSA If YES, has PT been informed?: No Medical Necessity Reason Pt with a Central, PICC or Fol: Yes The following are medically ne: Central Line, Venegas Catheter Reason for venegas catheter: Strict I&O Subjective Patient reports: Other (intubated) Review of Systems: Deferred Objective vital signs Vital Sign Date Time Temp Pulse Resp B/P (MAP) Pulse Ox O2 Delivery O2 Flow Rate FiO2 10/05/24 11:45 110/60 10/05/24 11:29 60 22 100 30 10/05/24 09:15 98.2 208.8 10/05/24 08:20 Mechanical Ventilator+ Total Intake and Output 10/04/24 10/04/24 10/05/24 15:00 23:00 07:00 Intake Total 359.65 ml 415.070 ml 551.318 ml Output Total 2450 ml 425 ml Balance 359.65 ml -2034.930 ml 126.318 ml medications Current Medications Medications Dose Ordered Sig/Conner Route Start Time Stop Time Status Last Admin Dose Admin Aspirin 81 mg DAILY PO 10/01/24 10:00 10/05/24 10:07 81 MG Atorvastatin Calcium 40 mg HS PO 09/30/24 22:00 10/04/24 21:36 40 MG Gabapentin 300 mg HS PO 09/30/24 22:00 10/04/24 21:36 300 MG Carvedilol 6.25 mg BID PO 09/30/24 22:00 Hold 09/30/24 17:32 6.25 MG Morphine Sulfate 2 mg Q30MP PRN IV 09/30/24 15:45 Ondansetron HCl 4 mg Q4HP PRN IV 09/30/24 15:45 Nitroglycerin 0.4 mg Q5MINP PRN SL 09/30/24 15:45 Propofol 100 ml @ 2.628 mls/ hr Q24H IV 09/30/24 19:15 10/05/24 06:22 7.884 MLS/HR Midazolam HCl 50 ml @ 1 mls/hr Q24H IV 09/30/24 19:15 10/05/24 10:29 5 MLS/HR Vasopressin 20 units/Sodium Chloride 100 ml @ 9 mls/hr Q11H7M IV 09/30/24 19:45 Norepinephrine Bitartrate 250 ml @ 3.75 mls/hr Q24H IV 09/30/24 20:00 10/05/24 11:45 7.5 MLS/HR Pantoprazole Sodium 40 mg DAILY IV 10/01/24 10:00 10/05/24 10:07 40 MG Acetaminophen 650 mg Q6HP PRN NG 10/01/24 02:00 10/01/24 15:00 650 MG Cefepime HCl 50 ml @ 12.5 mls/hr DAILY IV 10/01/24 11:00 10/05/24 10:07 12.5 MLS/HR Doxycycline Hyclate 100 ml @ 50 mls/hr Q12H IV 10/01/24 11:00 10/05/24 11:34 50 MLS/HR Furosemide 80 mg BIDD IV 10/02/24 07:30 10/05/24 05:41 80 MG Enteral Nutritional Formula 1,000 ml 30ML/HR GT 10/03/24 10:00 10/04/24 16:14 1,000 ML Docusate Sodium 100 mg DAILY GT 10/05/24 10:00 Diagnostic Test (Pha) 1 strip Q6HR 10/04/24 12:00 10/05/24 11:42 1 STRIP Insulin Human Regular Q6HR SC 10/04/24 12:00 10/04/24 23:46 2 UNITS Dextrose 50 ml UD PRN IV 10/04/24 12:00 Examination: GENERAL:Abnormal, LUNGS:Abnormal, CVS:Abnormal, ABDOMEN:Abnormal, SKIN:Abnormal laboratory and microbiology Laboratory Tests 10/05/24 02:57 Test 10/05/24 02:57 Range/Units Serum Glucose 122 H 74-106 mg/dL Microbiology Date/Time Source Procedure Growth Status 10/03/24 15:40 Nose MRSA Screen - Final Complete 10/01/24 00:36 Urine - [place] Urine Culture - Final Complete Problem List/Assessment/Plan Problem List/Assessment/Plan Acute kidney injury likely hemodynamic suspect prerenal but can not exclude ischemic injury in the setting of hypotension Shock Chronic kidney disease stage 3a Acute respiratory failure Methamphetamine intoxication Sepsis Hypokalemia Hypoglycemia tentative HD tomorrow continue IV diuretics purple discoloration of b/l feet indicate poor perfusion Recommend maintain mean arterial pressure greater than 65 Avoid hypotension Strict Is&Os overall poor prognosis critical care time 50min Plan discussed with: Other Dietary Evaluation Review Comments: 1) Initiate Pro-Stat @ 30 mL qd. Flush 30 mL H2O AC/PC. 2) Increase TF to 35 mL/hr goal rate. TF rate will provide 1612 kcals, 83g Pro (including Pro-Stat), and 626 mL free H2O per 24 hrs. TF rate will meet ~ 79% estimated energy needs and 75% estimated protein needs 3) Initiate vitamin C @ 500 mg bid and zinc sulfate @ 220 mg qd for 7-10 days. 4) Consider Nephro-[place] @ 1 tb qd 5) Follow-up with nephrology, cardiology, pulmonology, and social services aide 6) Continue to monitor I&O, labs, and skin integrity Expected Outcomes/Goals: 1) labs to improve 2) wound to improve 3) diet to advance 4) f/u in 2-3 days JAYA TREJO MD Oct 05, 2024 11:51
[2024-10-05] MEDS: SODIUM CHL 0.9% 1000 ML BAG XX ONE (13:35)
--- NOTE | 2024-10-05 20:35 | DVHPN2 ---
Subjective Still intubated and sedated Reviewed: Care Plan, H&P, Labs, Medications, Previous Orders, Radiology, Other (Consultations) Changes from previous H/P or p: No Changes Objective Vitals Vital Signs Date Time Temp Pulse Resp B/P (MAP) Pulse Ox O2 Delivery O2 Flow Rate FiO2 10/05/24 19:55 62 16 118/65 (82) 100 30 10/05/24 18:45 98.4 209.1 10/05/24 18:15 Mechanical Ventilator+ Intake/Output Intake and Output 10/05/24 07:00 Intake Total 1326.038 ml Output Total 2875 ml Balance -1548.962 ml Intake Oral 60 ml IV Total 789.038 ml Tube Feeding 477 ml Output Urine Total 875 ml Other 2000 ml # Bowel Movements 6 General Appearance: Other (Intubated and sedated) HEENT: Atraumatic Lungs: Other (Mechanical ventilation sounds) Cardiovascular: Other (Irregularly irregular) Abdomen: Soft Genitourinary: Other (Inman's catheter) Musculoskeletal: Other (Motor removed) Extremities: Other (Dusky lower extremities) Neuro: Other (Intubated and sedated) Psych/Mental Status: Other (Intubated and sedated) Medications Current Medications Medications Dose Ordered Sig/Conner Route Start Time Stop Time Status Last Admin Dose Admin Aspirin 81 mg DAILY PO 10/01/24 10:00 10/05/24 10:07 81 MG Atorvastatin Calcium 40 mg HS PO 09/30/24 22:00 10/04/24 21:36 40 MG Gabapentin 300 mg HS PO 09/30/24 22:00 10/04/24 21:36 300 MG Carvedilol 6.25 mg BID PO 09/30/24 22:00 Hold 09/30/24 17:32 6.25 MG Morphine Sulfate 2 mg Q30MP PRN IV 09/30/24 15:45 Ondansetron HCl 4 mg Q4HP PRN IV 09/30/24 15:45 Nitroglycerin 0.4 mg Q5MINP PRN SL 09/30/24 15:45 Propofol 100 ml @ 2.628 mls/ hr Q24H IV 09/30/24 19:15 10/05/24 17:03 5.256 MLS/HR Midazolam HCl 50 ml @ 1 mls/hr Q24H IV 09/30/24 19:15 10/05/24 10:29 5 MLS/HR Vasopressin 20 units/Sodium Chloride 100 ml @ 9 mls/hr Q11H7M IV 09/30/24 19:45 Norepinephrine Bitartrate 250 ml @ 3.75 mls/hr Q24H IV 09/30/24 20:00 10/05/24 11:45 7.5 MLS/HR Pantoprazole Sodium 40 mg DAILY IV 10/01/24 10:00 10/05/24 10:07 40 MG Acetaminophen 650 mg Q6HP PRN NG 10/01/24 02:00 10/01/24 15:00 650 MG Cefepime HCl 50 ml @ 12.5 mls/hr DAILY IV 10/01/24 11:00 10/05/24 10:07 12.5 MLS/HR Doxycycline Hyclate 100 ml @ 50 mls/hr Q12H IV 10/01/24 11:00 10/05/24 11:34 50 MLS/HR Furosemide 80 mg BIDD IV 10/02/24 07:30 10/05/24 17:40 80 MG Enteral Nutritional Formula 1,000 ml 30ML/HR GT 10/03/24 10:00 10/05/24 17:51 1,000 ML Docusate Sodium 100 mg DAILY GT 10/05/24 10:00 Diagnostic Test (Pha) 1 strip Q6HR 10/04/24 12:00 10/05/24 18:00 1 STRIP Insulin Human Regular Q6HR SC 10/04/24 12:00 10/04/24 23:46 2 UNITS Dextrose 50 ml UD PRN IV 10/04/24 12:00 Laboratory Results Laboratory Tests 10/05/24 02:57 Chemistry Test 10/05/24 02:57 Calcium Level 8.5 mg/dL (8.7-10.4) L Urinalysis Test 10/01/24 00:36 Urine Creatinine 241.60 mg/dL (30.0-125.0) H Urine Sodium 35 mmol/L (40-220) L Blood Gas Results Test 10/05/24 07:27 Arterial Blood pH 7.474 (7.350-7.450) FiO2 % 30.0 Microbiology Microbiology Date/Time Source Procedure Growth Status 10/03/24 15:40 Nose MRSA Screen - Final Complete 10/01/24 00:36 Urine - [place] Urine Culture - Final Complete Labs and/or images reviewed: Labs reviewed by me, Image(s) reviewed by me Assessment/Plan Assessment/Plan Covering: Acute metabolic/toxic encephalopathy Acute hypoxic respiratory failure due to multi-organism pneumonia Septic shock due to multi-organism pneumonia Leukocytosis due to septic shock Thrombocytopenia due to septic shock CIARAN on CKD; requiring hemodialysis; most likely vasomotor nephropathy Electrolytes imbalance in the setting of CIARAN in septic shock Acute on chronic systolic heart failure Atrial fibrillation with RVR NSTEMI; elevated troponin levels; most likely demand ischemia in the setting of septic shock; type 2 NM Uncontrolled diabetes mellitus type 2 with hyperglycemia Polysubstance (alcohol, marijuana, methamphetamine, and tobacco) use disorder Reviewed lab work including ABGs Reviewed cultures including sputum culture Reviewed imaging studies including chest x-rays Continue IV antibiotics Continue IV pressors as indicated Continue mechanical ventilation for oxygen therapy Continue sedation as indicated Continue insulin therapy with hypoglycemia Cardiology, nephrology, and pulmonology are following Telemetry Continue close monitoring Critical care time of 55 minutes This medical document was created using an electronic medical record system with computerized dictation system. Although this document has been carefully reviewed, there might still be some phonetic and typographical errors. These areas are purely typographical due to imperfections of the software programs, and do not reflect any compromise in the patient's medical care. Plan discussed with: Other (Nurse) My Orders Orders - LEONARDO HUMPHREY MD Procedure Category Date Status Time Apply Z-Guard ANICETO 10/05/24 In Process 11:30 Cleanse Wound With ANICTEO 10/05/24 In Process Wound Clean 11:30 * Dietary Consult CONS 10/05/24 Transmitted 14:59 * Wound Consult CONS 10/05/24 Transmitted Blood Culture MARY 10/05/24 In Process 19:25 Chest Xray 1 View XY 10/06/24 Logged 04:00 Abg W/ Co-Ox RT 10/06/24 Logged 06:00 Date of Service: Oct 05, 2024 Billing Provider: LEONARDO HUMPHREY MD Common Visit Codes: 37689-[id number] CARE 30-74 MIN (55 minutes) LEONARDO HUMPHREY MD Oct 05, 2024 20:35
--- NOTE | 2024-10-05 23:24 | DVHPN2 ---
Progress Note - Dictate Date Seen: Oct 05, 2024 Has the PT tested + for MRSA If YES, has PT been informed?: No Medical Necessity Reason Pt with a Central, PICC or Fol: Yes The following are medically ne: Central Line, Venegas Catheter Reason for venegas catheter: Strict I&O Subjective Patient was seen and evaluated in follow up in the ICU. Patient is intubated and sedated on a ventilator. FiO2 30%. BUN 55, PHYSICIAN GENERAL INTERNAL MEDICINE 5.95, CA 8.5. Chest x-ray showed stable cardiomegaly. vital signs Vital Sign Date Time Temp Pulse Resp B/P (MAP) Pulse Ox O2 Delivery O2 Flow Rate FiO2 10/05/24 14:45 98.1 60 16 111/69 (83) 100 208.6 10/05/24 14:08 30 10/05/24 14:07 Mechanical Ventilator+ Total Intake and Output 10/04/24 10/04/24 10/05/24 15:00 23:00 07:00 Intake Total 359.65 ml 415.070 ml 551.318 ml Output Total 2450 ml 425 ml Balance 359.65 ml -2034.930 ml 126.318 ml medications Current Medications Medications Dose Ordered Sig/Conner Route Start Time Stop Time Status Last Admin Dose Admin Aspirin 81 mg DAILY PO 10/01/24 10:00 10/05/24 10:07 81 MG Atorvastatin Calcium 40 mg HS PO 09/30/24 22:00 10/04/24 21:36 40 MG Gabapentin 300 mg HS PO 09/30/24 22:00 10/04/24 21:36 300 MG Carvedilol 6.25 mg BID PO 09/30/24 22:00 Hold 09/30/24 17:32 6.25 MG Morphine Sulfate 2 mg Q30MP PRN IV 09/30/24 15:45 Ondansetron HCl 4 mg Q4HP PRN IV 09/30/24 15:45 Nitroglycerin 0.4 mg Q5MINP PRN SL 09/30/24 15:45 Propofol 100 ml @ 2.628 mls/ hr Q24H IV 09/30/24 19:15 10/05/24 06:22 7.884 MLS/HR Midazolam HCl 50 ml @ 1 mls/hr Q24H IV 09/30/24 19:15 10/05/24 10:29 5 MLS/HR Vasopressin 20 units/Sodium Chloride 100 ml @ 9 mls/hr Q11H7M IV 09/30/24 19:45 Norepinephrine Bitartrate 250 ml @ 3.75 mls/hr Q24H IV 09/30/24 20:00 10/05/24 11:45 7.5 MLS/HR Pantoprazole Sodium 40 mg DAILY IV 10/01/24 10:00 10/05/24 10:07 40 MG Acetaminophen 650 mg Q6HP PRN NG 10/01/24 02:00 10/01/24 15:00 650 MG Cefepime HCl 50 ml @ 12.5 mls/hr DAILY IV 10/01/24 11:00 10/05/24 10:07 12.5 MLS/HR Doxycycline Hyclate 100 ml @ 50 mls/hr Q12H IV 10/01/24 11:00 10/05/24 11:34 50 MLS/HR Furosemide 80 mg BIDD IV 10/02/24 07:30 10/05/24 05:41 80 MG Enteral Nutritional Formula 1,000 ml 30ML/HR GT 10/03/24 10:00 10/04/24 16:14 1,000 ML Docusate Sodium 100 mg DAILY GT 10/05/24 10:00 Diagnostic Test (Pha) 1 strip Q6HR 10/04/24 12:00 10/05/24 11:42 1 STRIP Insulin Human Regular Q6HR SC 10/04/24 12:00 10/04/24 23:46 2 UNITS Dextrose 50 ml UD PRN IV 10/04/24 12:00 objective GENERAL: Ill appearing, intubated on ventilator. EYES: PERRL, EOMI. Anicteric. HENT: Moist mucous membranes. LUNGS: Transmitted breath sounds bilaterally. Decreased air entry bilaterally. CARDIOVASCULAR: Irregular rate and rhythm. ABDOMEN: Soft, non-tender and non-distended. EXTREMITIES: No edema. SKIN: Warm, dry. laboratory and microbiology Laboratory Tests 10/05/24 02:57 Test 10/05/24 02:57 Range/Units Serum Glucose 122 H 74-106 mg/dL Problem List Chest pain. NSTEMI. Atrial Fibrillation with RVR. CIARAN. Community acquired pneumonia. Acute on chronic systolic heart failure EF 10%. DM2 with hyperglycemia. Constipation. Anxiety. Acute respiratory failure. Assessment/Plan Continued all current supportive medical care. Echocardiogram. Aspirin, Lipitor. IV antibiotics as ordered. DVT prophylactics. Morphine for pain management. Vasopressors for hemodynamic support. Additional plan as per the hospital course. Critical care time of 45 minutes provided to include time spent evaluation of patient at bedside, when appropriate patient/family education for diagnosis, treatment plan, review of pertinent medical information and discussion of care with specialty providers and PCP. Mechanical ventilator parameters, treatment and adjustments have personally been reviewed by me and treatment plan by operator technician has also been reviewed. Dietary Evaluation Review Comments: 1) Initiate Pro-Stat @ 30 mL qd. Flush 30 mL H2O AC/PC. 2) Increase TF to 35 mL/hr goal rate. TF rate will provide 1612 kcals, 83g Pro (including Pro-Stat), and 626 mL free H2O per 24 hrs. TF rate will meet ~ 79% estimated energy needs and 75% estimated protein needs 3) Initiate vitamin C @ 500 mg bid and zinc sulfate @ 220 mg qd for 7-10 days. 4) Consider Nephro-[place] @ 1 tb qd 5) Follow-up with nephrology, cardiology, pulmonology, and social sciences research scientist 6) Continue to monitor I&O, labs, and skin integrity Expected Outcomes/Goals: 1) labs to improve 2) wound to improve 3) diet to advance 4) f/u in 2-3 days Plan discussed with: DESHAUN Jackson MD Oct 05, 2024 15:35
[2024-10-06] VITALS (109 sets, daily range): BP systolic 88–124; BP diastolic 53–73; PULSE 54–69; RESP 14–19; TEMP 97.5–100.2; O2SAT 94–100
--- NOTE | 2024-10-06 03:14 | DVH ---
CHEST RADIOGRAPH Indication: Intubated. Technique: Single frontal view of the chest was obtained COMPARISON: XY CHEST XRAY 1 VIEW on DOS: 10/05/24, XY CHEST PORTABLE on DOS: 10/04/24, XY CHEST XRAY 1 VIEW on DOS: 10/03/24, XY CHEST PORTABLE on DOS: 10/03/24, XY CHEST PORTABLE on DOS: 10/02/24 FINDINGS: Lines and Tubes: Unchanged Lungs: Clear Pleura: No effusion. No pneumothorax. Cardiomediastinal contours: Cardiomegaly. Bones: Unremarkable IMPRESSION: 1. No acute disease. 2. Stable cardiomegaly. 3. Lines and tubes unchanged.
[2024-10-06 03:59] LABS: Hemoglobin 16.1 g/dL (13.5-17.5); Mean Corpuscular Volume 97.8 fL (80.0-100.0)
[2024-10-06 04:02] LABS: Basophils # (auto) 0 10 ^3/uL (0-0.2); Basophils % (auto) 0.6 % (0.0-2.0); Eosinophils # (auto) 0.5 10 ^3/uL (0-0.8); Eosinophils % (auto) 5.3 % (0.0-7.0); Hematocrit 47.4 % (41.0-53.0); Lymphocytes # (auto) 0.6 10 ^3/uL (0.4-5.4); Lymphocytes % (auto) 6.9 % (10.0-50.0); Mean Corpuscular Hemoglobin 33.2 pg (28.0-32.0); Mean Corpuscular Hgb Conc. 33.9 g/dL (32.0-36.0); Monocytes % (auto) 11.9 % (0.0-12.0); Neutrophils # (auto) 6.6 10 ^3/uL (1.6-8.6); Neutrophils % (auto) 75.3 % (37.0-80.0); Nucleated Red Blood Cells % 0.3 %; Platelet Count (auto) 62 10^3/uL (140-450); Red Blood Cells 4.85 10^6/uL (4.5-5.90); Red Cell Distribution Width 16.9 % (11.8-14.3); White Blood Cell 8.8 10^3/uL (4.4-10.8)
[2024-10-06 04:18] LABS: Albumin 3.6 g/dL (3.2-4.8); Anion Gap 13 (5-15); Carbon Dioxide 26 mmol/L (20-31); Chloride 99 mmol/L (98-107); Potassium 4.5 mmol/L (3.5-5.1); Sodium 138 mmol/L (136-145); Total Protein 6.9 g/dL (5.7-8.2)
[2024-10-06 04:36] LABS: Alanine Aminotransferase 1182 U/L (7-40); Alkaline Phosphatase 124 U/L (46-116); Aspartate Aminotransferase 1150 U/L (13-40); Bilirubin, Total 2.6 mg/dL (0.2-1.0); Blood Urea Nitrogen 48 mg/dL (9-23); Calcium 8.6 mg/dL (8.7-10.4); Glucose 107 mg/dL (74-106)
[2024-10-06 07:04] LABS: Base Excess -0.7 mmol/L (-2.0-3.0)
--- NOTE | 2024-10-06 10:33 | DVHPN2 ---
Progress Note - Dictate Date Seen: Oct 06, 2024 Has the PT tested + for MRSA If YES, has PT been informed?: No Medical Necessity Reason Pt with a Central, PICC or Fol: Yes The following are medically ne: Central Line, Venegas Catheter Reason for venegas catheter: Strict I&O vital signs Vital Sign Date Time Temp Pulse Resp B/P (MAP) Pulse Ox O2 Delivery O2 Flow Rate FiO2 10/06/24 10:00 30 10/06/24 10:00 99.7 67 17 104/66 (79) 100 211.5 10/06/24 10:00 Mechanical Ventilator+ Total Intake and Output 10/05/24 10/05/24 10/06/24 15:00 23:00 07:00 Intake Total 293.546 ml 381.048 ml 590.536 ml Output Total 3000 ml 300 ml Balance 293.546 ml -2618.952 ml 290.536 ml medications Current Medications Medications Dose Ordered Sig/Conner Route Start Time Stop Time Status Last Admin Dose Admin Aspirin 81 mg DAILY PO 10/01/24 10:00 10/06/24 09:12 81 MG Atorvastatin Calcium 40 mg HS PO 09/30/24 22:00 10/05/24 22:04 40 MG Gabapentin 300 mg HS PO 09/30/24 22:00 10/05/24 22:04 300 MG Carvedilol 6.25 mg BID PO 09/30/24 22:00 Hold 09/30/24 17:32 6.25 MG Morphine Sulfate 2 mg Q30MP PRN IV 09/30/24 15:45 Ondansetron HCl 4 mg Q4HP PRN IV 09/30/24 15:45 Nitroglycerin 0.4 mg Q5MINP PRN SL 09/30/24 15:45 Propofol 100 ml @ 2.628 mls/ hr Q24H IV 09/30/24 19:15 10/06/24 04:17 5.256 MLS/HR Midazolam HCl 50 ml @ 1 mls/hr Q24H IV 09/30/24 19:15 10/06/24 09:13 2 MLS/HR Vasopressin 20 units/Sodium Chloride 100 ml @ 9 mls/hr Q11H7M IV 09/30/24 19:45 Norepinephrine Bitartrate 250 ml @ 3.75 mls/hr Q24H IV 09/30/24 20:00 4/27/25 11:45 7.5 MLS/HR Pantoprazole Sodium 40 mg DAILY IV 10/01/24 10:00 10/06/24 09:12 40 MG Acetaminophen 650 mg Q6HP PRN NG 10/01/24 02:00 10/01/24 15:00 650 MG Cefepime HCl 50 ml @ 12.5 mls/hr DAILY IV 10/01/24 11:00 10/06/24 07:56 12.5 MLS/HR Doxycycline Hyclate 100 ml @ 50 mls/hr Q12H IV 10/01/24 11:00 10/05/24 22:04 50 MLS/HR Furosemide 80 mg BIDD IV 10/02/24 07:30 10/06/24 05:47 80 MG Enteral Nutritional Formula 1,000 ml 30ML/HR GT 10/03/24 10:00 10/05/24 17:51 1,000 ML Docusate Sodium 100 mg DAILY GT 10/05/24 10:00 10/06/24 09:12 100 MG Diagnostic Test (Pha) 1 strip Q6HR 10/04/24 12:00 10/06/24 05:47 1 STRIP Insulin Human Regular Q6HR SC 10/04/24 12:00 10/05/24 23:31 3 UNITS Dextrose 50 ml UD PRN IV 10/04/24 12:00 laboratory and microbiology Laboratory Tests 10/06/24 03:12 Test 10/06/24 03:12 Range/Units Serum Glucose 107 H 74-106 mg/dL Assessment/Plan Impression Acute hypoxemic respiratory failure Elevated troponin NSTEMI CIARAN started on HD cardiomyopathy EF 10% substance abuse pos've for amphetamines on admission Patient seen and examined in ICU Events On mechanical ventilation S/p intubation PEEP 5, FiO2 30% abg reviewed BUN Cr elevated Labs and imaging reviewed Management Vent support Titrate to maintain sats 90% or above continue HD per nephrology Sedation holiday daily If patient follows commands, proceed to weaning trial Pressure support 12/13, extubate when ready ok to use precedex Continue antibiotics F/u cultures Bronchodilators Monitor renal function Monitor electrolytes Supplement as needed Pressors as needed for hemodynamic support To maintain a mean arterial pressure of 65 mmHg F/u cardiology DVT prophylaxis Critical care time 35 minutes Dietary Evaluation Review Comments: 1) Initiate Pro-Stat @ 30 mL qd. Flush 30 mL H2O AC/PC. 2) Increase TF to 35 mL/hr goal rate. TF rate will provide 1612 kcals, 83g Pro (including Pro-Stat), and 626 mL free H2O per 24 hrs. TF rate will meet ~ 79% estimated energy needs and 75% estimated protein needs 3) Initiate vitamin C @ 500 mg bid and zinc sulfate @ 220 mg qd for 7-10 days. 4) Consider Nephro-[place] @ 1 tb qd 5) Follow-up with nephrology, cardiology, pulmonology, and social security benefits interviewer 6) Continue to monitor I&O, labs, and skin integrity Expected Outcomes/Goals: 1) labs to improve 2) wound to improve 3) diet to advance 4) f/u in 2-3 days Plan discussed with: Other (rn) ISHMAEL MARROQUIN MD Oct 06, 2024 10:33
--- NOTE | 2024-10-06 13:43 | DVHPN2 ---
Assessment/Plan Assessment/Plan ICU note covering seen today during rounds, minimal vent settings, pulling breaths on spont. fem TLC needs to be exchanged. physical exam [facility] PERRLA mechanical breath sounds s1 s2 RRR abdomen soft nontender no LE edema labs ekg imaging reviewed assessment and plan Acute metabolic/toxic encephalopathy Acute hypoxic respiratory failure due to multi-organism pneumonia Septic shock due to multi-organism pneumonia Leukocytosis due to septic shock Thrombocytopenia due to septic shock ATN on HD Electrolytes imbalance in the setting of CIARAN in septic shock Acute on chronic systolic heart failure Atrial fibrillation with RVR type 2 [place] demand ischemia Uncontrolled diabetes mellitus type 2 with hyperglycemia Polysubstance (alcohol, marijuana, methamphetamine, and tobacco) use disorder sedation vacation CPAP c/w mechanical vent c/w pressors maintain MAP >65 c/w insulin maintain FS 150-200 empiric abx dialysis per renal PICC line keep K 4 Mg 2 diet TF hold for CPAP dvt ppx lovenox gi ppx protonix full code condition critical prognosis poor 55 mins crit care time spent Plan discussed with: Other Date of Service: Oct 06, 2024 Billing Provider: MICHELLE WARREN MD Common Visit Codes: [id number] CARE 30-74 MIN MICHELLE WARREN MD Oct 06, 2024 13:43
--- NOTE | 2024-10-06 14:41 | DVHPN2 ---
Progress Note Date Seen: Oct 06, 2024 Has the PT tested + for MRSA If YES, has PT been informed?: No Medical Necessity Reason Pt with a Central, PICC or Fol: Yes The following are medically ne: Central Line, Venegas Catheter Reason for venegas catheter: Strict I&O Subjective Patient reports: Other (Patient is intubated) Review of Systems: Deferred (Intubated) Objective vital signs Vital Sign Date Time Temp Pulse Resp B/P (MAP) Pulse Ox O2 Delivery O2 Flow Rate FiO2 10/06/24 14:00 99.1 61 16 102/66 (78) 100 210.4 10/06/24 14:00 Mechanical Ventilator+ 30 30 Total Intake and Output 10/05/24 10/05/24 10/06/24 15:00 23:00 07:00 Intake Total 293.546 ml 381.048 ml 590.536 ml Output Total 3000 ml 300 ml Balance 293.546 ml -2618.952 ml 290.536 ml medications Current Medications Medications Dose Ordered Sig/Conner Route Start Time Stop Time Status Last Admin Dose Admin Aspirin 81 mg DAILY PO 10/01/24 10:00 10/06/24 09:12 81 MG Gabapentin 300 mg HS PO 09/30/24 22:00 10/05/24 22:04 300 MG Carvedilol 6.25 mg BID PO 09/30/24 22:00 Hold 09/30/24 17:32 6.25 MG Morphine Sulfate 2 mg Q30MP PRN IV 09/30/24 15:45 Ondansetron HCl 4 mg Q4HP PRN IV 09/30/24 15:45 Nitroglycerin 0.4 mg Q5MINP PRN SL 09/30/24 15:45 Propofol 100 ml @ 2.628 mls/ hr Q24H IV 09/30/24 19:15 10/06/24 04:17 5.256 MLS/HR Midazolam HCl 50 ml @ 1 mls/hr Q24H IV 09/30/24 19:15 10/06/24 09:13 2 MLS/HR Vasopressin 20 units/Sodium Chloride 100 ml @ 9 mls/hr Q11H7M IV 09/30/24 19:45 Norepinephrine Bitartrate 250 ml @ 3.75 mls/hr Q24H IV 09/30/24 20:00 10/05/24 11:45 7.5 MLS/HR Pantoprazole Sodium 40 mg DAILY IV 10/01/24 10:00 10/06/24 09:12 40 MG Acetaminophen 650 mg Q6HP PRN NG 10/01/24 02:00 10/01/24 15:00 650 MG Cefepime HCl 50 ml @ 12.5 mls/hr DAILY IV 10/01/24 11:00 10/06/24 07:56 12.5 MLS/HR Doxycycline Hyclate 100 ml @ 50 mls/hr Q12H IV 10/01/24 11:00 10/06/24 10:39 50 MLS/HR Furosemide 80 mg BIDD IV 10/02/24 07:30 10/06/24 05:47 80 MG Enteral Nutritional Formula 1,000 ml 30ML/HR GT 10/03/24 10:00 10/05/24 17:51 1,000 ML Docusate Sodium 100 mg DAILY GT 10/05/24 10:00 10/06/24 09:12 100 MG Diagnostic Test (Pha) 1 strip Q6HR 10/04/24 12:00 10/06/24 11:31 1 STRIP Insulin Human Regular Q6HR SC 10/04/24 12:00 10/05/24 23:31 3 UNITS Dextrose 50 ml UD PRN IV 10/04/24 12:00 Examination: GENERAL:Abnormal, LUNGS:Abnormal, NEURO:Abnormal laboratory and microbiology Laboratory Tests 10/06/24 03:12 Test 10/06/24 03:12 Range/Units Serum Glucose 107 H 74-106 mg/dL Microbiology Date/Time Source Procedure Growth Status 10/03/24 15:40 Nose MRSA Screen - Final Complete 10/01/24 00:36 Urine - Venegas Port Urine Culture - Final Complete Problem List/Assessment/Plan Problem List/Assessment/Plan Acute kidney injury likely possibly ATN in the setting of shock Shock Chronic kidney disease stage 3a Acute respiratory failure Methamphetamine intoxication Sepsis Hypokalemia Hypoglycemia Recommendations Patient on Levophed Last dialysis was on Sunday Tentatively dialysis tomorrow Plan discussed with: Other Dietary Evaluation Review Comments: 1) Initiate Pro-Stat @ 30 mL qd. Flush 30 mL H2O AC/PC. 2) Increase TF to 35 mL/hr goal rate. TF rate will provide 1612 kcals, 83g Pro (including Pro-Stat), and 626 mL free H2O per 24 hrs. TF rate will meet ~ 79% estimated energy needs and 75% estimated protein needs 3) Initiate vitamin C @ 500 mg bid and zinc sulfate @ 220 mg qd for 7-10 days. 4) Consider Nephro-[place] @ 1 tb qd 5) Follow-up with nephrology, cardiology, pulmonology, and social services assistant 6) Continue to monitor I&O, labs, and skin integrity Expected Outcomes/Goals: 1) labs to improve 2) wound to improve 3) diet to advance 4) f/u in 2-3 days LUIZ RIDLEY MD Oct 06, 2024 14:41
--- NOTE | 2024-10-06 16:08 | DVH ---
EXAM: XR Chest, 1 View CLINICAL INDICATION: Confirm Right PICC placement. TECHNIQUE: Frontal view of the chest. COMPARISON: XY CHEST XRAY 1 VIEW on DOS: 10/06/24, XY CHEST XRAY 1 VIEW on DOS: 10/05/24, XY CHEST PO RTABLE on DOS: 10/04/24, XY CHEST XRAY 1 VIEW on DOS: 10/03/24, XY CHEST PORTABLE on DOS: 10/03/24 FINDINGS: LUNGS AND PLEURAL SPACES: See below. HEART: Unremarkable. No cardiomegaly. MEDIASTINUM: Unremarkable. Normal mediastinal contour. BONES/JOINTS: Unremarkable. No acute fracture. TUBES, LINES AND DEVICES: Status post right-sided PICC line placement with the distal tip in the at rial caval. No pneumothorax. Right internal jugular central venous catheter tip in the superior vena cava. OTHER FINDINGS: . . IMPRESSION: Status post right-sided PICC line placement with the distal tip in the atrial caval. No pneumothorax .
--- NOTE | 2024-10-06 16:46 | DVHNC2 ---
Central Line Recorder of insertion practice: Route Driver Salesperson Occupation of forester aide: Attending Physician Indication: Other (switch from fem TLC) Insertion site: Right, Upper extremity (PICC) Central line catheter type: Equ-ohfgthbs-hmr dialysis Number of lumens: 2 Notes Patient was already under purposeful sedation in the ICU. No additional local anesthesia was used. The right upper extremity was prepped and draped in sterile fashion. Using real-time ultrasound guidance, the right basilic vein was identified and cannulated without difficulty. Distance to the cavoatrial junction was measured, and the catheter was trimmed appropriately. A microbubble (saline flush) technique was used to assist in initial tip confirmation. Final placement was confirmed by post-procedure chest X-ray. The PICC line flushed and aspirated easily with good blood return. No immediate complications occurred. Date of Service: Oct 06, 2024 Billing Provider: MICHELLE WARREN MD Common Visit Codes: PROCEDURE ONLY ([id number]) MICHELLE WARREN MD Oct 06, 2024 16:46
--- NOTE | 2024-10-06 22:47 | DVHPN2 ---
Progress Note - Dictate Date Seen: Oct 06, 2024 Has the PT tested + for MRSA If YES, has PT been informed?: No Medical Necessity Reason Pt with a Central, PICC or Fol: Yes The following are medically ne: Central Line, Venegas Catheter Reason for venegas catheter: Strict I&O Subjective Patient was seen and evaluated in follow up in the ICU. Patient is intubated and sedated on a ventilator. FiO2 30%. Patient had RUE PICC placed today. Chest x- ray showed stable cardiomegaly. BUN 48, Manager Application Development 5.35, AST 1150, ALT 1182. vital signs Vital Sign Date Time Temp Pulse Resp B/P (MAP) Pulse Ox O2 Delivery O2 Flow Rate FiO2 10/06/24 22:15 97.7 54 16 123/62 (82) 100 207.9 109/71 (84) 10/06/24 22:05 Mechanical Ventilator+ 30 30 Total Intake and Output 10/05/24 10/05/24 10/06/24 15:00 23:00 07:00 Intake Total 293.546 ml 381.048 ml 590.536 ml Output Total 3000 ml 300 ml Balance 293.546 ml -2618.952 ml 290.536 ml medications Current Medications Medications Dose Ordered Sig/Conner Route Start Time Stop Time Status Last Admin Dose Admin Aspirin 81 mg DAILY PO 10/01/24 10:00 10/06/24 09:12 81 MG Gabapentin 300 mg HS PO 09/30/24 22:00 10/06/24 22:03 300 MG Carvedilol 6.25 mg BID PO 09/30/24 22:00 Hold 09/30/24 17:32 6.25 MG Morphine Sulfate 2 mg Q30MP PRN IV 09/30/24 15:45 Ondansetron HCl 4 mg Q4HP PRN IV 09/30/24 15:45 Nitroglycerin 0.4 mg Q5MINP PRN SL 09/30/24 15:45 Propofol 100 ml @ 2.628 mls/ hr Q24H IV 09/30/24 19:15 10/06/24 16:28 5.256 MLS/HR Midazolam HCl 50 ml @ 1 mls/hr Q24H IV 09/30/24 19:15 10/06/24 09:13 2 MLS/HR Vasopressin 20 units/Sodium Chloride 100 ml @ 9 mls/hr Q11H7M IV 09/30/24 19:45 Norepinephrine Bitartrate 250 ml @ 3.75 mls/hr Q24H IV 09/30/24 20:00 10/06/24 16:29 3.75 MLS/HR Pantoprazole Sodium 40 mg DAILY IV 10/01/24 10:00 10/06/24 09:12 40 MG Acetaminophen 650 mg Q6HP PRN NG 10/01/24 02:00 10/01/24 15:00 650 MG Cefepime HCl 50 ml @ 12.5 mls/hr DAILY IV 10/01/24 11:00 10/06/24 07:56 12.5 MLS/HR Doxycycline Hyclate 100 ml @ 50 mls/hr Q12H IV 10/01/24 11:00 10/06/24 22:33 50 MLS/HR Furosemide 80 mg BIDD IV 10/02/24 07:30 10/06/24 17:17 80 MG Enteral Nutritional Formula 1,000 ml 30ML/HR GT 10/03/24 10:00 10/05/24 17:51 1,000 ML Docusate Sodium 100 mg DAILY GT 10/05/24 10:00 10/06/24 09:12 100 MG Diagnostic Test (Pha) 1 strip Q6HR 10/04/24 12:00 10/06/24 17:17 1 STRIP Insulin Human Regular Q6HR SC 10/04/24 12:00 10/05/24 23:31 3 UNITS Dextrose 50 ml UD PRN IV 10/04/24 12:00 objective GENERAL: Ill appearing, intubated on ventilator. EYES: PERRL, EOMI. Anicteric. HENT: Moist mucous membranes. LUNGS: Transmitted breath sounds bilaterally. Decreased air entry bilaterally. CARDIOVASCULAR: Irregular rate and rhythm. ABDOMEN: Soft, non-tender and non-distended. EXTREMITIES: No edema. SKIN: Warm, dry. laboratory and microbiology Laboratory Tests 10/06/24 03:12 Test 10/06/24 03:12 Range/Units Serum Glucose 107 H 74-106 mg/dL Problem List Chest pain. NSTEMI. Atrial Fibrillation with RVR. CIARAN. Community acquired pneumonia. Acute on chronic systolic heart failure EF 10%. DM2 with hyperglycemia. Constipation. Anxiety. Acute respiratory failure. Assessment/Plan Continued all current supportive medical care. Echocardiogram. Aspirin, Lipitor. IV antibiotics as ordered. DVT prophylactics. Morphine for pain management. Vasopressors for hemodynamic support. Additional plan as per the hospital course. Critical care time of 45 minutes provided to include time spent evaluation of patient at bedside, when appropriate patient/family education for diagnosis, treatment plan, review of pertinent medical information and discussion of care with specialty providers and PCP. Mechanical ventilator parameters, treatment and adjustments have personally been reviewed by me and treatment plan by broadcast program director has also been reviewed. Dietary Evaluation Review Comments: 1) Initiate Pro-Stat @ 30 mL qd. Flush 30 mL H2O AC/PC. 2) Increase TF to 35 mL/hr goal rate. TF rate will provide 1612 kcals, 83g Pro (including Pro-Stat), and 626 mL free H2O per 24 hrs. TF rate will meet ~ 79% estimated energy needs and 75% estimated protein needs 3) Initiate vitamin C @ 500 mg bid and zinc sulfate @ 220 mg qd for 7-10 days. 4) Consider Nephro-[place] @ 1 tb qd 5) Follow-up with nephrology, cardiology, pulmonology, and child welfare social worker 6) Continue to monitor I&O, labs, and skin integrity Expected Outcomes/Goals: 1) labs to improve 2) wound to improve 3) diet to advance 4) f/u in 2-3 days Plan discussed with: DESHAUN Jackson MD Oct 06, 2024 22:47
[2024-10-07] VITALS (110 sets, daily range): BP systolic 92–141; BP diastolic 49–75; PULSE 54–72; RESP 15–31; TEMP 97–99; O2SAT 98–100
[2024-10-07 03:52] LABS: Basophils # (auto) 0 10 ^3/uL (0-0.2); Eosinophils # (auto) 0.6 10 ^3/uL (0-0.8); Lymphocytes # (auto) 0.6 10 ^3/uL (0.4-5.4); Monocytes # (auto) 1.3 10 ^3/uL (0-1.3)
[2024-10-07 03:55] LABS: Basophils % (auto) 0.5 % (0.0-2.0); Eosinophils % (auto) 6.7 % (0.0-7.0); Hematocrit 45.3 % (41.0-53.0); Hemoglobin 15.5 g/dL (13.5-17.5); Lymphocytes % (auto) 7.7 % (10.0-50.0); Mean Corpuscular Hemoglobin 33.7 pg (28.0-32.0); Mean Corpuscular Hgb Conc. 34.3 g/dL (32.0-36.0); Mean Corpuscular Volume 98.2 fL (80.0-100.0); Monocytes % (auto) 15.3 % (0.0-12.0); Neutrophils # (auto) 5.7 10 ^3/uL (1.6-8.6); Neutrophils % (auto) 69.8 % (37.0-80.0); Nucleated Red Blood Cells % 0.2 %; Platelet Count (auto) 60 10^3/uL (140-450); Red Blood Cells 4.61 10^6/uL (4.5-5.90); Red Cell Distribution Width 16.7 % (11.8-14.3); White Blood Cell 8.2 10^3/uL (4.4-10.8)
[2024-10-07 04:01] LABS: Albumin 3.5 g/dL (3.2-4.8); Anion Gap 13 (5-15); BUN/Creatinine Ratio 10.6 (10.0-20.0); Carbon Dioxide 26 mmol/L (20-31); Magnesium 2.4 mg/dL (1.6-2.6); Potassium 4.3 mmol/L (3.5-5.1); Sodium 137 mmol/L (136-145); Total Protein 6.7 g/dL (5.7-8.2)
[2024-10-07 04:14] LABS: Alanine Aminotransferase 884 U/L (7-40); Alkaline Phosphatase 128 U/L (46-116); Aspartate Aminotransferase 753 U/L (13-40); Bilirubin, Total 2.2 mg/dL (0.2-1.0); Blood Urea Nitrogen 71 mg/dL (9-23); Chloride 98 mmol/L (98-107); Glucose 161 mg/dL (74-106)
--- NOTE | 2024-10-07 04:45 | DVH ---
CHEST RADIOGRAPH Indication: acute resp failure Technique: Single frontal view of the chest was obtained Comparison: XY CHEST XRAY 1 VIEW on DOS: 10/06/24 FINDINGS: Lines and Tubes: The endotracheal tube terminates 6.2 cm above the chace. Enteric tube terminates in the stomach. Right central venous catheter and PICC terminates in the superior vena cava. Lungs: No focal consolidation. Pleura: No effusion. No pneumothorax. Cardiomediastinal contours: Stable cardiomegaly. Bones: No acute osseous abnormality. IMPRESSION: 1. Support lines and tubes in appropriate position. 2. No acute cardiopulmonary disease.
[2024-10-07 06:58] LABS: Base Excess -2.7 mmol/L (-2.0-3.0)
--- NOTE | 2024-10-07 11:23 | DVHPN2 ---
Assessment/Plan Assessment/Plan ICU note covering seen today during rounds, CPAP to exercise, off sedation today, will reassess mental status, titrate down pressors, remove a line after HD. informed prognosis to family physical exam [facility] PERRLA no responds to pain mechanical breath sounds s1 s2 RRR abdomen soft nontender no LE edema labs ekg imaging reviewed assessment and plan Acute metabolic/toxic encephalopathy Acute hypoxic respiratory failure due to multi-organism pneumonia Septic shock due to multi-organism pneumonia Leukocytosis due to septic shock Thrombocytopenia due to septic shock ATN on HD Electrolytes imbalance in the setting of CIARAN in septic shock Acute on chronic systolic heart failure HFrEF 10% Atrial fibrillation with RVR type 2 [place] demand ischemia Uncontrolled diabetes mellitus type 2 with hyperglycemia Polysubstance (alcohol, marijuana, methamphetamine, and tobacco) use disorder sedation vacation CPAP c/w mechanical vent c/w pressors maintain MAP >65 c/w insulin maintain FS 150-200 empiric abx dialysis per renal keep K 4 Mg 2 diet TF hold for CPAP dvt ppx lovenox gi ppx protonix full code condition critical prognosis poor 40 mins crit care time spent Plan discussed with: Other My Orders Orders - MICHELLE WARREN MD Procedure Category Date Status Time Chest Xray 1 View XY 10/06/24 Resulted 15:25 Communication Order ORDERS 10/06/24 Transmitted 16:46 D/C Tlc ANICETO 10/06/24 In Process 16:46 Chest Portable XY 10/07/24 Resulted 04:00 Cpap Trial For Am ORDERS 10/06/24 Transmitted 20:41 Cpap/Sed Vacation Med ORDERS 10/06/24 Transmitted Weaning 20:41 Us Guided Vascular US 10/06/24 Logged Access 21:49 Date of Service: Oct 07, 2024 Billing Provider: MICHELLE WARREN MD Common Visit Codes: [id number] CARE 30-74 MIN MICHELLE WARREN MD Oct 07, 2024 11:23
[2024-10-07 11:46] LABS: Base Excess -0.1 mmol/L (-2.0-3.0)
--- NOTE | 2024-10-07 12:52 | DVHPN2 ---
Progress Note - Dictate Date Seen: Oct 07, 2024 Has the PT tested + for MRSA If YES, has PT been informed?: No Medical Necessity Reason Pt with a Central, PICC or Fol: Yes The following are medically ne: Central Line, Venegas Catheter Reason for venegas catheter: Strict I&O vital signs Vital Sign Date Time Temp Pulse Resp B/P (MAP) Pulse Ox O2 Delivery O2 Flow Rate FiO2 10/07/24 12:00 71 10/07/24 12:00 98.1 20 107/52 (70) 100 208.6 95/53 (67) 10/07/24 12:00 30 10/07/24 12:00 Mechanical Ventilator+ Total Intake and Output 10/06/24 10/06/24 10/07/24 15:00 23:00 07:00 Intake Total 231 ml 557.030 ml 262.042 ml Output Total 275 ml 500 ml Balance 231 ml 282.030 ml -237.958 ml medications Current Medications Medications Dose Ordered Sig/Conner Route Start Time Stop Time Status Last Admin Dose Admin Aspirin 81 mg DAILY PO 10/01/24 10:00 10/07/24 08:42 81 MG Gabapentin 300 mg HS PO 09/30/24 22:00 10/06/24 22:03 300 MG Carvedilol 6.25 mg BID PO 09/30/24 22:00 Hold 09/30/24 17:32 6.25 MG Morphine Sulfate 2 mg Q30MP PRN IV 09/30/24 15:45 Ondansetron HCl 4 mg Q4HP PRN IV 09/30/24 15:45 Nitroglycerin 0.4 mg Q5MINP PRN SL 09/30/24 15:45 Propofol 100 ml @ 2.628 mls/ hr Q24H IV 09/30/24 19:15 10/07/24 06:12 2.628 MLS/HR Midazolam HCl 50 ml @ 1 mls/hr Q24H IV 09/30/24 19:15 10/06/24 09:13 2 MLS/HR Vasopressin 20 units/Sodium Chloride 100 ml @ 9 mls/hr Q11H7M IV 09/30/24 19:45 Norepinephrine Bitartrate 250 ml @ 3.75 mls/hr Q24H IV 09/30/24 20:00 10/06/24 16:29 3.75 MLS/HR Pantoprazole Sodium 40 mg DAILY IV 10/01/24 10:00 10/07/24 08:41 40 MG Acetaminophen 650 mg Q6HP PRN NG 10/01/24 02:00 10/01/24 15:00 650 MG Cefepime HCl 50 ml @ 12.5 mls/hr DAILY IV 10/01/24 11:00 10/07/24 07:37 12.5 MLS/HR Doxycycline Hyclate 100 ml @ 50 mls/hr Q12H IV 10/01/24 11:00 10/07/24 10:48 50 MLS/HR Furosemide 80 mg BIDD IV 10/02/24 07:30 10/07/24 05:31 80 MG Enteral Nutritional Formula 1,000 ml 30ML/HR GT 10/03/24 10:00 10/05/24 17:51 1,000 ML Docusate Sodium 100 mg DAILY GT 10/05/24 10:00 10/07/24 08:41 100 MG Diagnostic Test (Pha) 1 strip Q6HR 10/04/24 12:00 10/07/24 11:28 1 STRIP Insulin Human Regular Q6HR SC 10/04/24 12:00 10/05/24 23:31 3 UNITS Dextrose 50 ml UD PRN IV 10/04/24 12:00 laboratory and microbiology Laboratory Tests 10/07/24 02:58 Test 10/07/24 02:58 Range/Units Serum Glucose 161 H 74-106 mg/dL Assessment/Plan Impression Acute hypoxemic respiratory failure Elevated troponin NSTEMI CIARAN started on HD cardiomyopathy EF 10% substance abuse pos've for amphetamines on admission Patient seen and examined in ICU Events On mechanical ventilation S/p intubation PEEP 5, FiO2 30% abg reviewed undergoing HD Labs and imaging reviewed Management Vent support Titrate to maintain sats 90% or above continue HD per nephrology Sedation holiday daily If patient follows commands, proceed to weaning trial Pressure support 12/13, extubate when ready ok to use precedex Continue antibiotics F/u cultures Bronchodilators Monitor renal function Monitor electrolytes Supplement as needed Pressors as needed for hemodynamic support To maintain a mean arterial pressure of 65 mmHg F/u cardiology DVT prophylaxis family updated at bedside Critical care time 35 minutes Dietary Evaluation Review Comments: 1) Initiate Pro-Stat @ 30 mL qd. Flush 30 mL H2O AC/PC. 2) Increase TF to 35 mL/hr goal rate. TF rate will provide 1612 kcals, 83g Pro (including Pro-Stat), and 626 mL free H2O per 24 hrs. TF rate will meet ~ 79% estimated energy needs and 75% estimated protein needs 3) Initiate vitamin C @ 500 mg bid and zinc sulfate @ 220 mg qd for 7-10 days. 4) Consider Nephro-[place] @ 1 tb qd 5) Follow-up with nephrology, cardiology, pulmonology, and social work program coordinator 6) Continue to monitor I&O, labs, and skin integrity Expected Outcomes/Goals: 1) labs to improve 2) wound to improve 3) diet to advance 4) f/u in 2-3 days Plan discussed with: Other (rn) ISHMAEL MARROQUIN MD Oct 07, 2024 12:52
--- NOTE | 2024-10-07 18:33 | DVHPN2 ---
Progress Note Date Seen: Oct 07, 2024 Has the PT tested + for MRSA If YES, has PT been informed?: No Medical Necessity Reason Pt with a Central, PICC or Fol: Yes The following are medically ne: Central Line, Venegas Catheter Reason for venegas catheter: Strict I&O Subjective Patient reports: Other (intubated,off sedation) Review of Systems: Deferred Objective vital signs Vital Sign Date Time Temp Pulse Resp B/P (MAP) Pulse Ox O2 Delivery O2 Flow Rate FiO2 10/07/24 18:00 61 10/07/24 18:00 16 100 Mechanical Ventilator+ 30 30 10/07/24 17:45 98.2 116/54 (74) 208.8 103/56 (72) Total Intake and Output 10/06/24 10/06/24 10/07/24 15:00 23:00 07:00 Intake Total 231 ml 557.030 ml 262.042 ml Output Total 275 ml 500 ml Balance 231 ml 282.030 ml -237.958 ml medications Current Medications Medications Dose Ordered Sig/Conner Route Start Time Stop Time Status Last Admin Dose Admin Aspirin 81 mg DAILY PO 10/01/24 10:00 10/07/24 08:42 81 MG Gabapentin 300 mg HS PO 09/30/24 22:00 10/06/24 22:03 300 MG Carvedilol 6.25 mg BID PO 09/30/24 22:00 Hold 09/30/24 17:32 6.25 MG Morphine Sulfate 2 mg Q30MP PRN IV 09/30/24 15:45 Ondansetron HCl 4 mg Q4HP PRN IV 09/30/24 15:45 Nitroglycerin 0.4 mg Q5MINP PRN SL 09/30/24 15:45 Propofol 100 ml @ 2.628 mls/ hr Q24H IV 09/30/24 19:15 10/07/24 06:12 2.628 MLS/HR Midazolam HCl 50 ml @ 1 mls/hr Q24H IV 09/30/24 19:15 10/06/24 09:13 2 MLS/HR Vasopressin 20 units/Sodium Chloride 100 ml @ 9 mls/hr Q11H7M IV 09/30/24 19:45 Norepinephrine Bitartrate 250 ml @ 3.75 mls/hr Q24H IV 09/30/24 20:00 10/06/24 16:29 3.75 MLS/HR Pantoprazole Sodium 40 mg DAILY IV 10/01/24 10:00 10/07/24 08:41 40 MG Acetaminophen 650 mg Q6HP PRN NG 10/01/24 02:00 10/01/24 15:00 650 MG Cefepime HCl 50 ml @ 12.5 mls/hr DAILY IV 10/01/24 11:00 10/07/24 07:37 12.5 MLS/HR Doxycycline Hyclate 100 ml @ 50 mls/hr Q12H IV 10/01/24 11:00 10/07/24 10:48 50 MLS/HR Furosemide 80 mg BIDD IV 10/02/24 07:30 10/07/24 17:19 80 MG Enteral Nutritional Formula 1,000 ml 30ML/HR GT 10/03/24 10:00 10/07/24 13:39 1,000 ML Docusate Sodium 100 mg DAILY GT 10/05/24 10:00 10/07/24 08:41 100 MG Diagnostic Test (Pha) 1 strip Q6HR 10/04/24 12:00 10/07/24 17:18 1 STRIP Insulin Human Regular Q6HR SC 10/04/24 12:00 10/05/24 23:31 3 UNITS Dextrose 50 ml UD PRN IV 10/04/24 12:00 Examination: GENERAL:Normal, MSK:Abnormal, SKIN:Normal, NEURO:Abnormal laboratory and microbiology Laboratory Tests 10/07/24 02:58 Test 10/07/24 02:58 Range/Units Serum Glucose 161 H 74-106 mg/dL Microbiology Date/Time Source Procedure Growth Status 10/05/24 19:49 Blood Blood Culture - Preliminary NO GROWTH AFTER 24 HOURS OF INCUBATION. Resulted 10/03/24 15:40 Nose MRSA Screen - Final Complete 10/01/24 00:36 Urine - Venegas Port Urine Culture - Final Complete Problem List/Assessment/Plan Problem List/Assessment/Plan Acute kidney injury likely possibly ATN in the setting of shock Shock Chronic kidney disease stage 3a Acute respiratory failure Methamphetamine intoxication Sepsis Hypokalemia Hypoglycemia Recommendations HD today uf 3L off off sedation not waking up Plan discussed with: Other My Orders My Orders Orders - LUIZ RIDLEY MD Procedure Category Date Status Time Hemodialysis Orders ORDERS 10/07/24 Transmitted 07:46 Dietary Evaluation Review Comments: 1) Initiate Pro-Stat @ 30 mL qd. Flush 30 mL H2O AC/PC. 2) Increase TF to 35 mL/hr goal rate. TF rate will provide 1612 kcals, 83g Pro (including Pro-Stat), and 626 mL free H2O per 24 hrs. TF rate will meet ~ 79% estimated energy needs and 75% estimated protein needs 3) Initiate vitamin C @ 500 mg bid and zinc sulfate @ 220 mg qd for 7-10 days. 4) Consider Nephro-[place] @ 1 tb qd 5) Follow-up with nephrology, cardiology, pulmonology, and social staff worker 6) Continue to monitor I&O, labs, and skin integrity Expected Outcomes/Goals: 1) labs to improve 2) wound to improve 3) diet to advance 4) f/u in 2-3 days LUIZ RIDLEY MD Oct 07, 2024 18:33
--- NOTE | 2024-10-07 22:49 | DVHPN2 ---
Progress Note - Dictate Date Seen: Oct 07, 2024 Has the PT tested + for MRSA If YES, has PT been informed?: No Medical Necessity Reason Pt with a Central, PICC or Fol: Yes The following are medically ne: Central Line, Venegas Catheter Reason for venegas catheter: Strict I&O Subjective Patient was seen and evaluated in follow up in the ICU. Patient is intubated on ventilator. FiO2 30%. Patient off sedation. Vasopressors are being titrated. Patient received HD today. BUN 71, Liquefied Petroleum Gasfitter 6.68, AST 753, ALT 884. vital signs Vital Sign Date Time Temp Pulse Resp B/P (MAP) Pulse Ox O2 Delivery O2 Flow Rate FiO2 10/07/24 22:12 59 16 122/57 (78) 100 30 10/07/24 22:00 Mechanical Ventilator+ 10/07/24 22:00 98.2 208.8 Total Intake and Output 10/06/24 10/06/24 10/07/24 15:00 23:00 07:00 Intake Total 231 ml 557.030 ml 262.042 ml Output Total 275 ml 500 ml Balance 231 ml 282.030 ml -237.958 ml medications Current Medications Medications Dose Ordered Sig/Conner Route Start Time Stop Time Status Last Admin Dose Admin Aspirin 81 mg DAILY PO 10/01/24 10:00 10/07/24 08:42 81 MG Gabapentin 300 mg HS PO 09/30/24 22:00 10/07/24 22:32 300 MG Carvedilol 6.25 mg BID PO 09/30/24 22:00 Hold 09/30/24 17:32 6.25 MG Morphine Sulfate 2 mg Q30MP PRN IV 09/30/24 15:45 Ondansetron HCl 4 mg Q4HP PRN IV 09/30/24 15:45 Nitroglycerin 0.4 mg Q5MINP PRN SL 09/30/24 15:45 Midazolam HCl 50 ml @ 1 mls/hr Q24H IV 09/30/24 19:15 10/06/24 09:13 2 MLS/HR Vasopressin 20 units/Sodium Chloride 100 ml @ 9 mls/hr Q11H7M IV 09/30/24 19:45 Norepinephrine Bitartrate 250 ml @ 3.75 mls/hr Q24H IV 09/30/24 20:00 10/06/24 16:29 3.75 MLS/HR Pantoprazole Sodium 40 mg DAILY IV 10/01/24 10:00 10/07/24 08:41 40 MG Acetaminophen 650 mg Q6HP PRN NG 10/01/24 02:00 10/01/24 15:00 650 MG Cefepime HCl 50 ml @ 12.5 mls/hr DAILY IV 10/01/24 11:00 10/07/24 07:37 12.5 MLS/HR Doxycycline Hyclate 100 ml @ 50 mls/hr Q12H IV 10/01/24 11:00 10/07/24 22:32 50 MLS/HR Furosemide 80 mg BIDD IV 10/02/24 07:30 10/07/24 17:19 80 MG Enteral Nutritional Formula 1,000 ml 30ML/HR GT 10/03/24 10:00 10/07/24 13:39 1,000 ML Docusate Sodium 100 mg DAILY GT 10/05/24 10:00 10/07/24 08:41 100 MG Diagnostic Test (Pha) 1 strip Q6HR 10/04/24 12:00 10/07/24 17:18 1 STRIP Insulin Human Regular Q6HR SC 10/04/24 12:00 10/05/24 23:31 3 UNITS Dextrose 50 ml UD PRN IV 10/04/24 12:00 objective GENERAL: Ill appearing, intubated on ventilator. EYES: PERRL, EOMI. Anicteric. HENT: Moist mucous membranes. LUNGS: Transmitted breath sounds bilaterally. Decreased air entry bilaterally. CARDIOVASCULAR: Irregular rate and rhythm. ABDOMEN: Soft, non-tender and non-distended. EXTREMITIES: No edema. SKIN: Warm, dry. laboratory and microbiology Laboratory Tests 10/07/24 02:58 Test 10/07/24 02:58 Range/Units Serum Glucose 161 H 74-106 mg/dL Problem List Chest pain. NSTEMI. Atrial Fibrillation with RVR. CIARAN. Community acquired pneumonia. Acute on chronic systolic heart failure EF 10%. DM2 with hyperglycemia. Constipation. Anxiety. Acute respiratory failure. Assessment/Plan Continued all current supportive medical care. Echocardiogram. Aspirin, Lipitor. IV antibiotics as ordered. DVT prophylactics. Morphine for pain management. Vasopressors for hemodynamic support. Additional plan as per the hospital course. Critical care time of 45 minutes provided to include time spent evaluation of patient at bedside, when appropriate patient/family education for diagnosis, treatment plan, review of pertinent medical information and discussion of care with specialty providers and PCP. Mechanical ventilator parameters, treatment and adjustments have personally been reviewed by me and treatment plan by mental health tech has also been reviewed. Dietary Evaluation Review Comments: 1) Initiate Pro-Stat @ 30 mL qd. Flush 30 mL H2O AC/PC. 2) Increase TF to 35 mL/hr goal rate. TF rate will provide 1612 kcals, 83g Pro (including Pro-Stat), and 626 mL free H2O per 24 hrs. TF rate will meet ~ 79% estimated energy needs and 75% estimated protein needs 3) Initiate vitamin C @ 500 mg bid and zinc sulfate @ 220 mg qd for 7-10 days. 4) Consider Nephro-[place] @ 1 tb qd 5) Follow-up with nephrology, cardiology, pulmonology, and social work job titles 6) Continue to monitor I&O, labs, and skin integrity Expected Outcomes/Goals: 1) labs to improve 2) wound to improve 3) diet to advance 4) f/u in 2-3 days Plan discussed with: Other DESHAUN PETERSON MD Oct 07, 2024 22:49
[2024-10-08] VITALS (109 sets, daily range): BP systolic 85–147; BP diastolic 50–80; PULSE 56–75; RESP 13–22; TEMP 97.2–99.1; O2SAT 98–100
[2024-10-08 03:56] LABS: Basophils # (auto) 0 10 ^3/uL (0-0.2); Lymphocytes # (auto) 0.6 10 ^3/uL (0.4-5.4); Monocytes # (auto) 1.4 10 ^3/uL (0-1.3); Monocytes % (auto) 17.8 % (0.0-12.0); Neutrophils # (auto) 5.2 10 ^3/uL (1.6-8.6); Nucleated Red Blood Cells % 0.1 %
[2024-10-08 03:58] LABS: Basophils % (auto) 0.5 % (0.0-2.0); Eosinophils # (auto) 0.5 10 ^3/uL (0-0.8); Eosinophils % (auto) 6.9 % (0.0-7.0); Hematocrit 47.9 % (41.0-53.0); Hemoglobin 16.3 g/dL (13.5-17.5); Lymphocytes % (auto) 8.2 % (10.0-50.0); Mean Corpuscular Hemoglobin 33.4 pg (28.0-32.0); Mean Corpuscular Volume 98.2 fL (80.0-100.0); Neutrophils % (auto) 66.6 % (37.0-80.0); Platelet Count (auto) 46 10^3/uL (140-450); Red Blood Cells 4.87 10^6/uL (4.5-5.90); Red Cell Distribution Width 16.2 % (11.8-14.3); White Blood Cell 7.9 10^3/uL (4.4-10.8)
[2024-10-08 04:09] LABS: Anion Gap 12 (5-15); BUN/Creatinine Ratio 9.5 (10.0-20.0); Calcium 9.7 mg/dL (8.7-10.4); Carbon Dioxide 28 mmol/L (20-31); Chloride 99 mmol/L (98-107); Potassium 4.1 mmol/L (3.5-5.1); Sodium 139 mmol/L (136-145)
[2024-10-08 04:10] LABS: Magnesium 2.6 mg/dL (1.6-2.6)
[2024-10-08 04:11] LABS: Albumin 3.7 g/dL (3.2-4.8)
[2024-10-08 04:20] LABS: Glucose 115 mg/dL (74-106)
[2024-10-08 04:21] LABS: Alanine Aminotransferase 718 U/L (7-40); Alkaline Phosphatase 146 U/L (46-116); Aspartate Aminotransferase 493 U/L (13-40); Bilirubin, Total 1.8 mg/dL (0.2-1.0); Blood Urea Nitrogen 59 mg/dL (9-23)
[2024-10-08 04:34] LABS: Total Protein 7.1 g/dL (5.7-8.2)
[2024-10-08 07:59] LABS: Base Excess -0.5 mmol/L (-2.0-3.0)
--- NOTE | 2024-10-08 12:09 | DVHPN2 ---
Progress Note Date Seen: Oct 08, 2024 Resident Creating Document: SHONDA MANN RESIDENT Has the PT tested + for MRSA If YES, has PT been informed?: No Medical Necessity Reason Pt with a Central, PICC or Fol: Yes The following are medically ne: Central Line, Venegas Catheter Reason for venegas catheter: Strict I&O Subjective Review of Systems seen and examined at bedside in ICU On mechanical ventilation S/p intubation PEEP 5, FiO2 30% ABG reviewed undergoing HD Objective vital signs Vital Sign Date Time Temp Pulse Resp B/P (MAP) Pulse Ox O2 Delivery O2 Flow Rate FiO2 10/08/24 11:42 66 16 127/69 (88) 100 30 10/08/24 08:45 99.0 210.2 10/08/24 08:00 Mechanical Ventilator+ Total Intake and Output 10/07/24 10/07/24 10/08/24 15:00 23:00 07:00 Intake Total 162 ml 160 ml 315 ml Output Total 200 ml 200 ml Balance 162 ml -40 ml 115 ml medications Current Medications Medications Dose Ordered Sig/Conner Route Start Time Stop Time Status Last Admin Dose Admin Aspirin 81 mg DAILY PO 10/01/24 10:00 10/07/24 08:42 81 MG Gabapentin 300 mg HS PO 09/30/24 22:00 10/07/24 22:32 300 MG Carvedilol 6.25 mg BID PO 09/30/24 22:00 Hold 09/30/24 17:32 6.25 MG Morphine Sulfate 2 mg Q30MP PRN IV 09/30/24 15:45 Ondansetron HCl 4 mg Q4HP PRN IV 09/30/24 15:45 Nitroglycerin 0.4 mg Q5MINP PRN SL 09/30/24 15:45 Midazolam HCl 50 ml @ 1 mls/hr Q24H IV 09/30/24 19:15 10/06/24 09:13 2 MLS/HR Vasopressin 20 units/Sodium Chloride 100 ml @ 9 mls/hr Q11H7M IV 09/30/24 19:45 Norepinephrine Bitartrate 250 ml @ 3.75 mls/hr Q24H IV 09/30/24 20:00 10/06/24 16:29 3.75 MLS/HR Pantoprazole Sodium 40 mg DAILY IV 10/01/24 10:00 10/08/24 10:20 40 MG Acetaminophen 650 mg Q6HP PRN NG 10/01/24 02:00 10/01/24 15:00 650 MG Cefepime HCl 50 ml @ 12.5 mls/hr DAILY IV 10/01/24 11:00 10/08/24 10:20 12.5 MLS/HR Doxycycline Hyclate 100 ml @ 50 mls/hr Q12H IV 10/01/24 11:00 10/08/24 10:20 50 MLS/HR Furosemide 80 mg BIDD IV 10/02/24 07:30 10/08/24 06:21 80 MG Enteral Nutritional Formula 1,000 ml 30ML/HR GT 10/03/24 10:00 10/07/24 13:39 1,000 ML Docusate Sodium 100 mg DAILY GT 10/05/24 10:00 10/08/24 10:20 100 MG Diagnostic Test (Pha) 1 strip Q6HR 10/04/24 12:00 10/08/24 06:21 1 STRIP Insulin Human Regular Q6HR SC 10/04/24 12:00 10/08/24 00:12 2 UNITS Dextrose 50 ml UD PRN IV 10/04/24 12:00 Examination: GENERAL:Abnormal, HEENT:Abnormal, LUNGS:Abnormal, NEURO:Abnormal laboratory and microbiology Laboratory Tests 10/08/24 03:14 Test 10/08/24 03:14 Range/Units Serum Glucose 115 H 74-106 mg/dL Microbiology Date/Time Source Procedure Growth Status 10/05/24 19:49 Blood Blood Culture - Preliminary NO GROWTH AFTER 48 HOURS OF INCUBATION. Resulted 10/03/24 15:40 Nose MRSA Screen - Final Complete 10/01/24 00:36 Urine - Venegas Port Urine Culture - Final Complete Problem List/Assessment/Plan Problem List/Assessment/Plan Assessment: Acute hypoxic respiratory failure due to multi-organism pneumonia Septic shock due to multi-organism pneumonia Leukocytosis due to septic shock CIARAN started on HD cardiomyopathy EF 10% substance abuse pos've for amphetamines on admission Plan: Vent support Titrate to maintain sats 90% or above continue HD per nephrology Patient is off sedation for 48 hrs Sedation holiday daily, If patient follows commands, proceed to weaning trial Pressure support 12/13, extubate when ready Continue antibiotics F/u cultures Bronchodilators Monitor renal function Monitor electrolytes Supplement as needed Pressors as needed for hemodynamic support To maintain a mean arterial pressure of 65 mmHg Case Discussed with Dr Ovalle Plan discussed with: Other (RN) Dietary Evaluation Review Comments: 1) Initiate Pro-Stat @ 30 mL qd. Flush 30 mL H2O AC/PC. 2) Increase TF to 35 mL/hr goal rate. TF rate will provide 1612 kcals, 83g Pro (including Pro-Stat), and 626 mL free H2O per 24 hrs. TF rate will meet ~ 79% estimated energy needs and 75% estimated protein needs 3) Initiate vitamin C @ 500 mg bid and zinc sulfate @ 220 mg qd for 7-10 days. 4) Consider Nephro-[place] @ 1 tb qd 5) Follow-up with nephrology, cardiology, pulmonology, and protective services social worker 6) Continue to monitor I&O, labs, and skin integrity Expected Outcomes/Goals: 1) labs to improve 2) wound to improve 3) diet to advance 4) f/u in 2-3 days Date of Service: Oct 08, 2024 Billing Provider: ISHMAEL OVALLE MD Common Visit Codes: NOT BILLABLE SHONDA MANN RESIDENT Oct 08, 2024 12:09 ISHMAEL OVALLE MD October 11, 2024 12:19
--- NOTE | 2024-10-08 14:17 | DVHPN2 ---
Assessment/Plan Assessment/Plan ICU note covering seen today during rounds, c/w SAT SBT. no mental status. if no improvement after HD will repeat head ct physical exam sedated intubated on mech ventilation PERRLA no responds to pain mechanical breath sounds s1 s2 RRR abdomen soft nontender no LE edema labs ekg imaging reviewed assessment and plan Acute metabolic/toxic encephalopathy Acute hypoxic respiratory failure due to multi-organism pneumonia Septic shock due to multi-organism pneumonia Leukocytosis due to septic shock Thrombocytopenia due to septic shock ATN on HD Electrolytes imbalance in the setting of CIARAN in septic shock Acute on chronic systolic heart failure HFrEF 10% Atrial fibrillation with RVR type 2 HI demand ischemia Uncontrolled diabetes mellitus type 2 with hyperglycemia Polysubstance (alcohol, marijuana, methamphetamine, and tobacco) use disorder sedation vacation CPAP c/w mechanical vent c/w pressors maintain MAP >65 c/w insulin maintain FS 150-200 empiric abx dialysis per renal keep K 4 Mg 2 diet TF hold for CPAP dvt ppx lovenox gi ppx protonix full code condition critical prognosis poor 40 mins crit care time spent Plan discussed with: Other My Orders Orders - MICHELLE WARREN MD Procedure Category Date Status Time Chest Xray 1 View XY 10/08/24 Taken 04:08 Abg W/ Co-Ox RT 10/08/24 Logged 05:27 Communication Order ORDERS 10/08/24 Transmitted 09:30 Date of Service: Oct 08, 2024 Billing Provider: MICHELLE WARREN MD Common Visit Codes: [id number] CARE 30-74 MIN MICHELLE WARREN MD Oct 08, 2024 14:17
[2024-10-08] MEDS: PROPOFOL 100 ML IV SCH (16:45)
[2024-10-08] MEDS: fentaNYL Drip 2500mCg/250mlNS 250 ML IV SCH (16:45)
[2024-10-08] MEDS: DEXMEDETOMIDINE HCL IN D5W 100 ML IV SCH (16:45)
--- NOTE | 2024-10-08 18:42 | DVHPN2 ---
Progress Note Date Seen: Oct 08, 2024 Has the PT tested + for MRSA If YES, has PT been informed?: No Medical Necessity Reason Pt with a Central, PICC or Fol: Yes The following are medically ne: Central Line, Venegas Catheter Reason for venegas catheter: Strict I&O Subjective Patient reports: Other (intubated) Review of Systems: Deferred Objective vital signs Vital Sign Date Time Temp Pulse Resp B/P (MAP) Pulse Ox O2 Delivery O2 Flow Rate FiO2 10/08/24 18:05 56 19 92/53 (66) 100 30 10/08/24 16:15 99.0 210.2 10/08/24 16:00 Mechanical Ventilator+ Total Intake and Output 10/07/24 10/07/24 10/08/24 15:00 23:00 07:00 Intake Total 162 ml 160 ml 315 ml Output Total 200 ml 200 ml Balance 162 ml -40 ml 115 ml medications Current Medications Medications Dose Ordered Sig/Conner Route Start Time Stop Time Status Last Admin Dose Admin Aspirin 81 mg DAILY PO 10/01/24 10:00 10/07/24 08:42 81 MG Gabapentin 300 mg HS PO 09/30/24 22:00 10/07/24 22:32 300 MG Carvedilol 6.25 mg BID PO 09/30/24 22:00 Hold 09/30/24 17:32 6.25 MG Morphine Sulfate 2 mg Q30MP PRN IV 09/30/24 15:45 Ondansetron HCl 4 mg Q4HP PRN IV 09/30/24 15:45 Nitroglycerin 0.4 mg Q5MINP PRN SL 09/30/24 15:45 Midazolam HCl 50 ml @ 1 mls/hr Q24H IV 09/30/24 19:15 10/06/24 09:13 2 MLS/HR Vasopressin 20 units/Sodium Chloride 100 ml @ 9 mls/hr Q11H7M IV 09/30/24 19:45 Norepinephrine Bitartrate 250 ml @ 3.75 mls/hr Q24H IV 09/30/24 20:00 10/06/24 16:29 3.75 MLS/HR Pantoprazole Sodium 40 mg DAILY IV 10/01/24 10:00 10/08/24 10:20 40 MG Acetaminophen 650 mg Q6HP PRN NG 10/01/24 02:00 10/01/24 15:00 650 MG Cefepime HCl 50 ml @ 12.5 mls/hr DAILY IV 10/01/24 11:00 10/08/24 10:20 12.5 MLS/HR Doxycycline Hyclate 100 ml @ 50 mls/hr Q12H IV 10/01/24 11:00 10/08/24 10:20 50 MLS/HR Furosemide 80 mg BIDD IV 10/02/24 07:30 10/08/24 06:21 80 MG Enteral Nutritional Formula 1,000 ml 30ML/HR GT 10/03/24 10:00 10/07/24 13:39 1,000 ML Docusate Sodium 100 mg DAILY GT 10/05/24 10:00 10/08/24 10:20 100 MG Diagnostic Test (Pha) 1 strip Q6HR 10/04/24 12:00 10/08/24 17:15 1 STRIP Insulin Human Regular Q6HR SC 10/04/24 12:00 10/08/24 00:12 2 UNITS Dextrose 50 ml UD PRN IV 10/04/24 12:00 Propofol 100 ml @ 2.697 mls/ hr Q24H IV 10/08/24 16:45 Fentanyl Citrate 250 ml @ 2.5 mls/hr Q24H IV 10/08/24 16:45 Examination: GENERAL:Abnormal, LUNGS:Abnormal, MSK:Abnormal, SKIN:Abnormal, NEURO:Abnormal laboratory and microbiology Laboratory Tests 10/08/24 03:14 Test 10/08/24 03:14 Range/Units Serum Glucose 115 H 74-106 mg/dL Microbiology Date/Time Source Procedure Growth Status 10/05/24 19:49 Blood Blood Culture - Preliminary NO GROWTH AFTER 48 HOURS OF INCUBATION. Resulted 10/03/24 15:40 Nose MRSA Screen - Final Complete 10/01/24 00:36 Urine - Venegas [place] Urine Culture - Final Complete Problem List/Assessment/Plan Problem List/Assessment/Plan Acute kidney injury likely possibly ATN in the setting of shock Shock Chronic kidney disease stage 3a Acute respiratory failure Methamphetamine intoxication Sepsis Hypokalemia Hypoglycemia Recommendations HD today repeat off sedation not waking up Plan discussed with: Other My Orders My Orders Orders - LUIZ RIDLEY MD Procedure Category Date Status Time Hemodialysis Orders ORDERS 10/08/24 Transmitted 15:31 Dietary Evaluation Review Comments: 1) Initiate Pro-Stat @ 30 mL qd. Flush 30 mL H2O AC/PC. 2) Increase TF to 35 mL/hr goal rate. TF rate will provide 1612 kcals, 83g Pro (including Pro-Stat), and 626 mL free H2O per 24 hrs. TF rate will meet ~ 79% estimated energy needs and 75% estimated protein needs 3) Initiate vitamin C @ 500 mg bid and zinc sulfate @ 220 mg qd for 7-10 days. 4) Consider Nephro-[place] @ 1 tb qd 5) Follow-up with nephrology, cardiology, pulmonology, and social work program coordinator 6) Continue to monitor I&O, labs, and skin integrity Expected Outcomes/Goals: 1) labs to improve 2) wound to improve 3) diet to advance 4) f/u in 2-3 days LUIZ RIDLEY MD Oct 08, 2024 18:42
--- NOTE | 2024-10-08 22:32 | DVHPN2 ---
Progress Note - Dictate Date Seen: Oct 08, 2024 Has the PT tested + for MRSA If YES, has PT been informed?: No Medical Necessity Reason Pt with a Central, PICC or Fol: Yes The following are medically ne: Central Line, Venegas Catheter Reason for venegas catheter: Strict I&O Subjective Patient was seen and evaluated in follow up in the ICU. Patient is intubated on ventilator. FiO2 30%. Patient is planned for a CPAP trial today. 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 vital signs Vital Sign Date Time Temp Pulse Resp B/P (MAP) Pulse Ox O2 Delivery O2 Flow Rate FiO2 10/08/24 11:42 66 16 127/69 (88) 100 30 10/08/24 08:45 99.0 210.2 10/08/24 08:00 Mechanical Ventilator+ Total Intake and Output 10/07/24 10/07/24 10/08/24 14:59 22:59 06:59 Intake Total 166 ml 160 ml 315 ml Output Total 200 ml 200 ml Balance 166 ml -40 ml 115 ml medications Current Medications Medications Dose Ordered Sig/Conner Route Start Time Stop Time Status Last Admin Dose Admin Aspirin 81 mg DAILY PO 10/01/24 10:00 10/07/24 08:42 81 MG Gabapentin 300 mg HS PO 09/30/24 22:00 10/07/24 22:32 300 MG Carvedilol 6.25 mg BID PO 09/30/24 22:00 Hold 09/30/24 17:32 6.25 MG Morphine Sulfate 2 mg Q30MP PRN IV 09/30/24 15:45 Ondansetron HCl 4 mg Q4HP PRN IV 09/30/24 15:45 Nitroglycerin 0.4 mg Q5MINP PRN SL 09/30/24 15:45 Midazolam HCl 50 ml @ 1 mls/hr Q24H IV 09/30/24 19:15 10/06/24 09:13 2 MLS/HR Vasopressin 20 units/Sodium Chloride 100 ml @ 9 mls/hr Q11H7M IV 09/30/24 19:45 Norepinephrine Bitartrate 250 ml @ 3.75 mls/hr Q24H IV 09/30/24 20:00 10/06/24 16:29 3.75 MLS/HR Pantoprazole Sodium 40 mg DAILY IV 10/01/24 10:00 10/08/24 10:20 40 MG Acetaminophen 650 mg Q6HP PRN NG 10/01/24 02:00 10/01/24 15:00 650 MG Cefepime HCl 50 ml @ 12.5 mls/hr DAILY IV 10/01/24 11:00 10/08/24 10:20 12.5 MLS/HR Doxycycline Hyclate 100 ml @ 50 mls/hr Q12H IV 10/01/24 11:00 10/08/24 10:20 50 MLS/HR Furosemide 80 mg BIDD IV 10/02/24 07:30 10/08/24 06:21 80 MG Enteral Nutritional Formula 1,000 ml 30ML/HR GT 10/03/24 10:00 10/07/24 13:39 1,000 ML Docusate Sodium 100 mg DAILY GT 10/05/24 10:00 10/08/24 10:20 100 MG Diagnostic Test (Pha) 1 strip Q6HR 10/04/24 12:00 10/08/24 06:21 1 STRIP Insulin Human Regular Q6HR SC 10/04/24 12:00 10/08/24 00:12 2 UNITS Dextrose 50 ml UD PRN IV 10/04/24 12:00 objective GENERAL: Ill appearing, intubated on ventilator. EYES: PERRL, EOMI. Anicteric. HENT: Moist mucous membranes. LUNGS: Transmitted breath sounds bilaterally. Decreased air entry bilaterally. CARDIOVASCULAR: Irregular rate and rhythm. ABDOMEN: Soft, non-tender and non-distended. EXTREMITIES: No edema. SKIN: Warm, dry. laboratory and microbiology Laboratory Tests 10/08/24 03:14 Test 10/08/24 03:14 Range/Units Serum Glucose 115 H 74-106 mg/dL Problem List Chest pain. NSTEMI. Atrial Fibrillation with RVR. CIARAN. Community acquired pneumonia. Acute on chronic systolic heart failure EF 10%. DM2 with hyperglycemia. Constipation. Anxiety. Acute respiratory failure. Assessment/Plan Continued all current supportive medical care. Echocardiogram. Aspirin, Lipitor. IV antibiotics as ordered. DVT prophylactics. Morphine for pain management. Vasopressors for hemodynamic support. Additional plan as per the hospital course. Critical care time of 45 minutes provided to include time spent evaluation of patient at bedside, when appropriate patient/family education for diagnosis, treatment plan, review of pertinent medical information and discussion of care with specialty providers and PCP. Mechanical ventilator parameters, treatment and adjustments have personally been reviewed by me and treatment plan by cell builder has also been reviewed. Dietary Evaluation Review Comments: 1) Initiate Pro-Stat @ 30 mL qd. Flush 30 mL H2O AC/PC. 2) Increase TF to 35 mL/hr goal rate. TF rate will provide 1612 kcals, 83g Pro (including Pro-Stat), and 626 mL free H2O per 24 hrs. TF rate will meet ~ 79% estimated energy needs and 75% estimated protein needs 3) Initiate vitamin C @ 500 mg bid and zinc sulfate @ 220 mg qd for 7-10 days. 4) Consider Nephro-[place] @ 1 tb qd 5) Follow-up with nephrology, cardiology, pulmonology, and foster care social worker 6) Continue to monitor I&O, labs, and skin integrity Expected Outcomes/Goals: 1) labs to improve 2) wound to improve 3) diet to advance 4) f/u in 2-3 days Plan discussed with: DESHAUN Jackson MD Oct 08, 2024 11:50
[2024-10-09] VITALS (104 sets, daily range): BP systolic 85–139; BP diastolic 58–83; PULSE 59–90; RESP 9–31; TEMP 96.8–99.5; O2SAT 94–100
[2024-10-09 04:24] LABS: Basophils # (auto) 0 10 ^3/uL (0-0.2); Basophils % (auto) 0.5 % (0.0-2.0); Neutrophils # (auto) 4.9 10 ^3/uL (1.6-8.6); Nucleated Red Blood Cells % 0.1 %; White Blood Cell 7.3 10^3/uL (4.4-10.8)
[2024-10-09 04:27] LABS: Eosinophils # (auto) 0.3 10 ^3/uL (0-0.8); Eosinophils % (auto) 4.7 % (0.0-7.0); Hematocrit 49.6 % (41.0-53.0); Hemoglobin 16.6 g/dL (13.5-17.5); Lymphocytes # (auto) 0.8 10 ^3/uL (0.4-5.4); Lymphocytes % (auto) 10.4 % (10.0-50.0); Mean Corpuscular Hemoglobin 32.8 pg (28.0-32.0); Mean Corpuscular Hgb Conc. 33.5 g/dL (32.0-36.0); Mean Corpuscular Volume 97.9 fL (80.0-100.0); Monocytes # (auto) 1.2 10 ^3/uL (0-1.3); Neutrophils % (auto) 67.4 % (37.0-80.0); Platelet Count (auto) 41 10^3/uL (140-450); Red Blood Cells 5.07 10^6/uL (4.5-5.90); Red Cell Distribution Width 16.4 % (11.8-14.3)
[2024-10-09 04:32] LABS: Calcium 9.7 mg/dL (8.7-10.4); Chloride 99 mmol/L (98-107); Potassium 3.9 mmol/L (3.5-5.1); Sodium 138 mmol/L (136-145)
[2024-10-09 04:33] LABS: Anion Gap 12 (5-15); Carbon Dioxide 27 mmol/L (20-31)
[2024-10-09 04:39] LABS: BUN/Creatinine Ratio 9.3 (10.0-20.0); Glucose 92 mg/dL (74-106); Magnesium 2.5 mg/dL (1.6-2.6)
[2024-10-09 04:52] LABS: Blood Urea Nitrogen 47 mg/dL (9-23); Phosphorus 7.6 mg/dL (2.4-5.1)
[2024-10-09 06:58] LABS: Base Excess 1.4 mmol/L (-2.0-3.0)
--- NOTE | 2024-10-09 08:58 | CONS ---
Pharmacy Clinical Information: From Heart Failure Potential Fallout Report on CQM Application, ZenjujuJarocho silva is a 59 year old male with PMH of CHF, DM, HTN, HLD, anxiety. His home mediations include atorvastatin, carvedilol, and spironolactone. Patient was started on atorvastatin while inpatient, but it was held due to elevated liver function tests. SGLT2i not recommended due to eGFR<20. NIYA GEORGE PHARMACIST October 09, 2024 08:58
--- NOTE | 2024-10-09 09:46 | DVH ---
EXAM: XY CHEST PORTABLE Indication: pt intubated Technique: Single frontal view of the chest was obtained Comparison: XY CHEST PORTABLE on DOS: 10/07/24, XY CHEST XRAY 1 VIEW on DOS: 10/06/24, XY CHEST XRAY 1 VIEW on DOS: 10/06/24, XY CHEST XRAY 1 VIEW on DOS: 10/05/24, XY CHEST PORTABLE on DOS: 10/04/24 FINDINGS: Lines and Tubes: Endotracheal tube projects 4.7 cm above the chace. Right internal jugular central v enous catheter tip projects over the superior vena cava. Right PICC tip projects over the superior v meryl cava. Lungs: No focal consolidation. Pleura: No effusion. No pneumothorax. Cardiomediastinal contours: Unchanged. Bones: No acute osseous abnormality. IMPRESSION: No significant change compared to prior exam allowing for differences in technique.
--- NOTE | 2024-10-09 09:48 | DVH ---
EXAM: XY CHEST XRAY 1 VIEW Indication: FU ETT VENT Technique: Single frontal view of the chest was obtained Comparison: XY CHEST PORTABLE on DOS: 10/07/24, XY CHEST XRAY 1 VIEW on DOS: 10/06/24, XY CHEST XRAY 1 VIEW on DOS: 10/06/24, XY CHEST XRAY 1 VIEW on DOS: 10/05/24, XY CHEST PORTABLE on DOS: 10/04/24, XY [address] PORTABLE on DOS: 10/07/24 FINDINGS: Lines and Tubes: The endotracheal tube terminates 5.3 cm above the chace. Enteric tube terminates in the stomach. Right central venous catheter and PICC terminates in the superior vena cava. Lungs: No focal consolidation. Pleura: No effusion. No pneumothorax. Cardiomediastinal contours: Stable cardiomegaly. Bones: No acute osseous abnormality. IMPRESSION: No significant change compared to prior exam.
--- NOTE | 2024-10-09 10:10 | DVHPN2 ---
Progress Note Date Seen: October 09, 2024 Has the PT tested + for MRSA If YES, has PT been informed?: No Medical Necessity Reason Pt with a Central, PICC or Fol: Yes The following are medically ne: Central Line, Venegas Catheter Reason for venegas catheter: Strict I&O Subjective Patient reports: Other (Patient remains intubated) Review of Systems: Deferred Objective vital signs Vital Sign Date Time Temp Pulse Resp B/P (MAP) Pulse Ox O2 Delivery O2 Flow Rate FiO2 10/09/24 09:14 72 16 122/66 (84) 94 30 10/09/24 08:00 98.1 208.6 10/09/24 08:00 Mechanical Ventilator+ Total Intake and Output 10/08/24 10/08/24 10/09/24 15:00 23:00 07:00 Intake Total 150 ml 50 ml 172 ml Output Total 350 ml 300 ml Balance 150 ml -300 ml -128 ml medications Current Medications Medications Dose Ordered Sig/Conner Route Start Time Stop Time Status Last Admin Dose Admin Aspirin 81 mg DAILY PO 10/01/24 10:00 10/07/24 08:42 81 MG Gabapentin 300 mg HS PO 09/30/24 22:00 10/08/24 21:48 300 MG Carvedilol 6.25 mg BID PO 09/30/24 22:00 Hold 09/30/24 17:32 6.25 MG Morphine Sulfate 2 mg Q30MP PRN IV 09/30/24 15:45 Ondansetron HCl 4 mg Q4HP PRN IV 09/30/24 15:45 Nitroglycerin 0.4 mg Q5MINP PRN SL 09/30/24 15:45 Midazolam HCl 50 ml @ 1 mls/hr Q24H IV 09/30/24 19:15 10/06/24 09:13 2 MLS/HR Vasopressin 20 units/Sodium Chloride 100 ml @ 9 mls/hr Q11H7M IV 09/30/24 19:45 Norepinephrine Bitartrate 250 ml @ 3.75 mls/hr Q24H IV 09/30/24 20:00 10/06/24 16:29 3.75 MLS/HR Pantoprazole Sodium 40 mg DAILY IV 10/01/24 10:00 10/08/24 10:20 40 MG Acetaminophen 650 mg Q6HP PRN NG 10/01/24 02:00 10/01/24 15:00 650 MG Cefepime HCl 50 ml @ 12.5 mls/hr DAILY IV 10/01/24 11:00 10/08/24 10:20 12.5 MLS/HR Doxycycline Hyclate 100 ml @ 50 mls/hr Q12H IV 10/01/24 11:00 10/08/24 22:55 50 MLS/HR Furosemide 80 mg BIDD IV 10/02/24 07:30 10/09/24 05:52 80 MG Enteral Nutritional Formula 1,000 ml 30ML/HR GT 10/03/24 10:00 10/09/24 02:41 1,000 ML Docusate Sodium 100 mg DAILY GT 10/05/24 10:00 10/08/24 10:20 100 MG Diagnostic Test (Pha) 1 strip Q6HR 10/04/24 12:00 10/09/24 05:50 1 STRIP Insulin Human Regular Q6HR SC 10/04/24 12:00 10/08/24 00:12 2 UNITS Dextrose 50 ml UD PRN IV 10/04/24 12:00 Propofol 100 ml @ 2.697 mls/ hr Q24H IV 10/08/24 16:45 Fentanyl Citrate 250 ml @ 2.5 mls/hr Q24H IV 10/08/24 16:45 Examination: GENERAL:Abnormal, LUNGS:Abnormal, NEURO:Abnormal laboratory and microbiology Laboratory Tests 10/09/24 03:30 Test 10/09/24 03:30 Range/Units Serum Glucose 92 74-106 mg/dL Microbiology Date/Time Source Procedure Growth Status 10/05/24 19:49 Blood Blood Culture - Preliminary NO GROWTH AFTER 72 HOURS OF INCUBATION. Resulted 10/03/24 15:40 Nose MRSA Screen - Final Complete 10/01/24 00:36 Urine - Venegas Port Urine Culture - Final Complete Problem List/Assessment/Plan Problem List/Assessment/Plan Acute kidney injury likely possibly ATN in the setting of shock Shock Chronic kidney disease stage 3a Acute respiratory failure Methamphetamine intoxication Sepsis Hypokalemia Hypoglycemia Recommendations HD today repeat for solute clearance Plan discussed with: Other My Orders My Orders Orders - LUIZ RIDLEY MD Procedure Category Date Status Time Hemodialysis Orders ORDERS 10/08/24 Transmitted 15:31 Dietary Evaluation Review Comments: 1) Initiate Pro-Stat @ 30 mL qd. Flush 30 mL H2O AC/PC. 2) Increase TF to 35 mL/hr goal rate. TF rate will provide 1612 kcals, 83g Pro (including Pro-Stat), and 626 mL free H2O per 24 hrs. TF rate will meet ~ 79% estimated energy needs and 75% estimated protein needs 3) Initiate vitamin C @ 500 mg bid and zinc sulfate @ 220 mg qd for 7-10 days. 4) Consider Nephro-[place] @ 1 tb qd 5) Follow-up with nephrology, cardiology, pulmonology, and director of social services 6) Continue to monitor I&O, labs, and skin integrity Expected Outcomes/Goals: 1) labs to improve 2) wound to improve 3) diet to advance 4) f/u in 2-3 days LUIZ RIDLEY MD October 09, 2024 10:10
--- NOTE | 2024-10-09 11:58 | DVHPN2 ---
Progress Note Date Seen: October 09, 2024 Resident Creating Document: SHONDA MANN RESIDENT Has the PT tested + for MRSA If YES, has PT been informed?: No Medical Necessity Reason Pt with a Central, PICC or Fol: Yes The following are medically ne: Central Line, Venegas Catheter Reason for venegas catheter: Strict I&O Subjective Review of Systems Patient seen and examined at bedside, Patient is undergoing CPAP trial Patient is not fully awake Patient got antibiotic for seven days, discontinue all antibiotics. Objective vital signs Vital Sign Date Time Temp Pulse Resp B/P (MAP) Pulse Ox O2 Delivery O2 Flow Rate FiO2 10/09/24 11:33 78 26 129/69 (89) 100 30 10/09/24 11:00 98.4 209.1 10/09/24 10:00 Mechanical Ventilator+ Total Intake and Output 10/08/24 10/08/24 10/09/24 14:59 22:59 06:59 Intake Total 150 ml 50 ml 172 ml Output Total 350 ml 300 ml Balance 150 ml -300 ml -128 ml medications Current Medications Medications Dose Ordered Sig/Conner Route Start Time Stop Time Status Last Admin Dose Admin Aspirin 81 mg DAILY PO 10/01/24 10:00 10/09/24 10:08 81 MG Gabapentin 300 mg HS PO 09/30/24 22:00 10/08/24 21:48 300 MG Carvedilol 6.25 mg BID PO 09/30/24 22:00 Hold 09/30/24 17:32 6.25 MG Morphine Sulfate 2 mg Q30MP PRN IV 09/30/24 15:45 Ondansetron HCl 4 mg Q4HP PRN IV 09/30/24 15:45 Nitroglycerin 0.4 mg Q5MINP PRN SL 09/30/24 15:45 Midazolam HCl 50 ml @ 1 mls/hr Q24H IV 09/30/24 19:15 10/06/24 09:13 2 MLS/HR Vasopressin 20 units/Sodium Chloride 100 ml @ 9 mls/hr Q11H7M IV 09/30/24 19:45 Norepinephrine Bitartrate 250 ml @ 3.75 mls/hr Q24H IV 09/30/24 20:00 10/06/24 16:29 3.75 MLS/HR Pantoprazole Sodium 40 mg DAILY IV 10/01/24 10:00 10/09/24 10:08 40 MG Acetaminophen 650 mg Q6HP PRN NG 10/01/24 02:00 10/01/24 15:00 650 MG Cefepime HCl 50 ml @ 12.5 mls/hr DAILY IV 10/01/24 11:00 10/08/24 10:20 12.5 MLS/HR Doxycycline Hyclate 100 ml @ 50 mls/hr Q12H IV 10/01/24 11:00 10/08/24 22:55 50 MLS/HR Furosemide 80 mg BIDD IV 10/02/24 07:30 10/09/24 05:52 80 MG Enteral Nutritional Formula 1,000 ml 30ML/HR GT 10/03/24 10:00 10/09/24 02:41 1,000 ML Docusate Sodium 100 mg DAILY GT 10/05/24 10:00 10/09/24 10:08 100 MG Diagnostic Test (Pha) 1 strip Q6HR 10/04/24 12:00 10/09/24 05:50 1 STRIP Insulin Human Regular Q6HR SC 10/04/24 12:00 10/08/24 00:12 2 UNITS Dextrose 50 ml UD PRN IV 10/04/24 12:00 Propofol 100 ml @ 2.697 mls/ hr Q24H IV 10/08/24 16:45 Fentanyl Citrate 250 ml @ 2.5 mls/hr Q24H IV 10/08/24 16:45 Examination GENERAL:Abnormal, HEENT:Abnormal, LUNGS:Abnormal, NEURO:Abnormal laboratory and microbiology Laboratory Tests 10/09/24 03:30 Test 10/09/24 03:30 Range/Units Serum Glucose 92 74-106 mg/dL Microbiology Date/Time Source Procedure Growth Status 10/05/24 19:49 Blood Blood Culture - Preliminary NO GROWTH AFTER 72 HOURS OF INCUBATION. Resulted 10/03/24 15:40 Nose MRSA Screen - Final Complete 10/01/24 00:36 Urine - Venegas [place] Urine Culture - Final Complete Problem List/Assessment/Plan Problem List/Assessment/Plan Assessment: Acute hypoxic respiratory failure due to multi-organism pneumonia Septic shock due to multi-organism pneumonia Leukocytosis due to septic shock CIARAN started on HD cardiomyopathy EF 10% substance abuse pos've for amphetamines on admission Plan: Vent support Titrate to maintain sats 90% or above continue HD per nephrology Patient is off sedation for 48 hrs Sedation holiday daily, Patient did not fully awake Pressure support 12/13, extubate when ready discontinue all antibiotics. F/u cultures Bronchodilators Monitor renal function Monitor electrolytes Supplement as needed Pressors as needed for hemodynamic support To maintain a mean arterial pressure of 65 mmHg Case Discussed with Dr Ovalle Plan discussed with: Other (RN) Dietary Evaluation Review Comments: 1) Initiate Pro-Stat @ 30 mL qd. Flush 30 mL H2O AC/PC. 2) Increase TF to 35 mL/hr goal rate. TF rate will provide 1612 kcals, 83g Pro (including Pro-Stat), and 626 mL free H2O per 24 hrs. TF rate will meet ~ 79% estimated energy needs and 75% estimated protein needs 3) Initiate vitamin C @ 500 mg bid and zinc sulfate @ 220 mg qd for 7-10 days. 4) Consider Nephro-[place] @ 1 tb qd 5) Follow-up with nephrology, cardiology, pulmonology, and director of social media marketing 6) Continue to monitor I&O, labs, and skin integrity Expected Outcomes/Goals: 1) labs to improve 2) wound to improve 3) diet to advance 4) f/u in 2-3 days Date of Service: October 09, 2024 Billing Provider: ISHMAEL OVALLE MD Common Visit Codes: NOT BILLABLE SHONDA MANN RESIDENT October 09, 2024 11:58 ISHMAEL OVALLE MD October 11, 2024 12:18
--- NOTE | 2024-10-09 13:29 | DVHPN2 ---
Assessment/Plan Assessment/Plan ICU note covering seen today during rounds, c/w SAT SBT. no mental status, however opened eyes once per nursing. likely will need trach and peg. physical exam sedated intubated on mech ventilation PERRLA no responds to pain mechanical breath sounds s1 s2 RRR abdomen soft nontender no LE edema labs ekg imaging reviewed assessment and plan Acute metabolic/toxic encephalopathy Acute hypoxic respiratory failure due to multi-organism pneumonia Septic shock due to multi-organism pneumonia Leukocytosis due to septic shock Thrombocytopenia due to septic shock ATN on HD Electrolytes imbalance in the setting of CIARAN in septic shock Acute on chronic systolic heart failure HFrEF 10% Atrial fibrillation with RVR type 2 WA demand ischemia Uncontrolled diabetes mellitus type 2 with hyperglycemia Polysubstance (alcohol, marijuana, methamphetamine, and tobacco) use disorder sedation vacation CPAP c/w mechanical vent c/w pressors maintain MAP >65 c/w insulin maintain FS 150-200 empiric abx dialysis per renal diet TF hold for CPAP dvt ppx lovenox gi ppx protonix full code condition critical prognosis poor 40 mins crit care time spent Plan discussed with: Other My Orders Orders - MICHELLE WARREN MD Procedure Category Date Status Time Communication Order ORDERS 10/08/24 Transmitted 09:30 Dexmedetomidine Hcl PHA 10/08/24 In Process In D5w (Precedex) 16:45 Propofol (Diprivan) PHA 10/08/24 In Process 16:45 Fentanyl Drip PHA 10/08/24 In Process 2500mcg/250mlns 16:45 Cpap Trial For Am ORDERS 10/09/24 Transmitted 08:01 Chest Portable XY 10/09/24 Resulted 08:28 Date of Service: October 09, 2024 Billing Provider: MICHELLE WARREN MD Common Visit Codes: [id number] CARE 30-74 MIN MICHELLE WARREN MD October 09, 2024 13:29
--- NOTE | 2024-10-09 22:03 | DVHPN2 ---
Progress Note - Dictate Date Seen: October 09, 2024 Has the PT tested + for MRSA If YES, has PT been informed?: No Medical Necessity Reason Pt with a Central, PICC or Fol: Yes The following are medically ne: Central Line, Venegas Catheter Reason for venegas catheter: Strict I&O Subjective Patient was seen and evaluated in follow up in the ICU. Patient is intubated on ventilator. FiO2 30%. Patient doesn't respond to verbal or painful stimuli. Patient will likely need trach/peg. BUN 47, PROTECTION CONSULTANT 5.06. vital signs Vital Sign Date Time Temp Pulse Resp B/P (MAP) Pulse Ox O2 Delivery O2 Flow Rate FiO2 10/09/24 11:00 98.4 76 29 130/69 (89) 99 209.1 10/09/24 10:00 Mechanical Ventilator+ 30 30 Total Intake and Output 10/08/24 10/08/24 10/09/24 15:00 23:00 07:00 Intake Total 150 ml 50 ml 172 ml Output Total 350 ml 300 ml Balance 150 ml -300 ml -128 ml medications Current Medications Medications Dose Ordered Sig/Conner Route Start Time Stop Time Status Last Admin Dose Admin Aspirin 81 mg DAILY PO 10/01/24 10:00 10/09/24 10:08 81 MG Gabapentin 300 mg HS PO 09/30/24 22:00 10/08/24 21:48 300 MG Carvedilol 6.25 mg BID PO 09/30/24 22:00 Hold 09/30/24 17:32 6.25 MG Morphine Sulfate 2 mg Q30MP PRN IV 09/30/24 15:45 Ondansetron HCl 4 mg Q4HP PRN IV 09/30/24 15:45 Nitroglycerin 0.4 mg Q5MINP PRN SL 09/30/24 15:45 Midazolam HCl 50 ml @ 1 mls/hr Q24H IV 09/30/24 19:15 10/06/24 09:13 2 MLS/HR Vasopressin 20 units/Sodium Chloride 100 ml @ 9 mls/hr Q11H7M IV 09/30/24 19:45 Norepinephrine Bitartrate 250 ml @ 3.75 mls/hr Q24H IV 09/30/24 20:00 10/06/24 16:29 3.75 MLS/HR Pantoprazole Sodium 40 mg DAILY IV 10/01/24 10:00 10/09/24 10:08 40 MG Acetaminophen 650 mg Q6HP PRN NG 10/01/24 02:00 10/01/24 15:00 650 MG Cefepime HCl 50 ml @ 12.5 mls/hr DAILY IV 10/01/24 11:00 10/08/24 10:20 12.5 MLS/HR Doxycycline Hyclate 100 ml @ 50 mls/hr Q12H IV 10/01/24 11:00 10/08/24 22:55 50 MLS/HR Furosemide 80 mg BIDD IV 10/02/24 07:30 10/09/24 05:52 80 MG Enteral Nutritional Formula 1,000 ml 30ML/HR GT 10/03/24 10:00 10/09/24 02:41 1,000 ML Docusate Sodium 100 mg DAILY GT 10/05/24 10:00 10/09/24 10:08 100 MG Diagnostic Test (Pha) 1 strip Q6HR 10/04/24 12:00 10/09/24 05:50 1 STRIP Insulin Human Regular Q6HR SC 10/04/24 12:00 10/08/24 00:12 2 UNITS Dextrose 50 ml UD PRN IV 10/04/24 12:00 Propofol 100 ml @ 2.697 mls/ hr Q24H IV 10/08/24 16:45 Fentanyl Citrate 250 ml @ 2.5 mls/hr Q24H IV 10/08/24 16:45 objective GENERAL: Ill appearing, intubated on ventilator. EYES: PERRL, EOMI. Anicteric. HENT: Moist mucous membranes. LUNGS: Transmitted breath sounds bilaterally. Decreased air entry bilaterally. CARDIOVASCULAR: Irregular rate and rhythm. ABDOMEN: Soft, non-tender and non-distended. EXTREMITIES: No edema. SKIN: Warm, dry. laboratory and microbiology Laboratory Tests 10/09/24 03:30 Test 10/09/24 03:30 Range/Units Serum Glucose 92 74-106 mg/dL Problem List Chest pain. NSTEMI. Atrial Fibrillation with RVR. CIARAN. Community acquired pneumonia. Acute on chronic systolic heart failure EF 10%. DM2 with hyperglycemia. Constipation. Anxiety. Acute respiratory failure. Assessment/Plan Continued all current supportive medical care. Echocardiogram. Aspirin, Lipitor. IV antibiotics as ordered. DVT prophylactics. Morphine for pain management. Vasopressors for hemodynamic support. Additional plan as per the hospital course. Critical care time of 45 minutes provided to include time spent evaluation of patient at bedside, when appropriate patient/family education for diagnosis, treatment plan, review of pertinent medical information and discussion of care with specialty providers and PCP. Mechanical ventilator parameters, treatment and adjustments have personally been reviewed by me and treatment plan by nursing home admissions director has also been reviewed. Dietary Evaluation Review Comments: 1) Initiate Pro-Stat @ 30 mL qd. Flush 30 mL H2O AC/PC. 2) Increase TF to 35 mL/hr goal rate. TF rate will provide 1612 kcals, 83g Pro (including Pro-Stat), and 626 mL free H2O per 24 hrs. TF rate will meet ~ 79% estimated energy needs and 75% estimated protein needs 3) Initiate vitamin C @ 500 mg bid and zinc sulfate @ 220 mg qd for 7-10 days. 4) Consider Nephro-[place] @ 1 tb qd 5) Follow-up with nephrology, cardiology, pulmonology, and social services director 6) Continue to monitor I&O, labs, and skin integrity Expected Outcomes/Goals: 1) labs to improve 2) wound to improve 3) diet to advance 4) f/u in 2-3 days Plan discussed with: Other DESHAUN PETERSON MD October 09, 2024 11:39
[2024-10-10] VITALS (108 sets, daily range): BP systolic 70–133; BP diastolic 42–77; PULSE 61–83; RESP 14–26; TEMP 67.6–99.7; O2SAT 98–100
[2024-10-10 09:17] LABS: Lymphocytes # (auto) 0.7 10 ^3/uL (0.4-5.4); Monocytes # (auto) 1.3 10 ^3/uL (0-1.3); White Blood Cell 7.5 10^3/uL (4.4-10.8)
[2024-10-10 09:38] LABS: Base Excess 2.1 mmol/L (-2.0-3.0)
[2024-10-10 09:43] LABS: Albumin 3.7 g/dL (3.2-4.8); Anion Gap 12 (5-15); BUN/Creatinine Ratio 10.8 (10.0-20.0); Calcium 10.1 mg/dL (8.7-10.4); Carbon Dioxide 30 mmol/L (20-31); Potassium 3.7 mmol/L (3.5-5.1); Sodium 140 mmol/L (136-145); Total Protein 7.4 g/dL (5.7-8.2)
[2024-10-10 09:45] LABS: Alanine Aminotransferase 382 U/L (7-40); Alkaline Phosphatase 153 U/L (46-116); Bilirubin, Total 2.1 mg/dL (0.2-1.0); Blood Urea Nitrogen 57 mg/dL (9-23); Chloride 98 mmol/L (98-107); Glucose 154 mg/dL (74-106)
[2024-10-10 10:02] LABS: Aspartate Aminotransferase 147 U/L (13-40)
[2024-10-10 10:04] LABS: Basophils # (auto) 0 10 ^3/uL (0-0.2); Basophils % (auto) 0.6 % (0.0-2.0); Eosinophils # (auto) 0.4 10 ^3/uL (0-0.8); Eosinophils % (auto) 4.8 % (0.0-7.0); Hematocrit 49.9 % (41.0-53.0); Hemoglobin 16.8 g/dL (13.5-17.5); Lymphocytes % (auto) 9.6 % (10.0-50.0); Mean Corpuscular Hemoglobin 32.8 pg (28.0-32.0); Mean Corpuscular Hgb Conc. 33.7 g/dL (32.0-36.0); Mean Corpuscular Volume 97.4 fL (80.0-100.0); Monocytes % (auto) 17.7 % (0.0-12.0); Neutrophils % (auto) 67.3 % (37.0-80.0); Platelet Count (auto) 56 10^3/uL (140-450); Red Blood Cells 5.12 10^6/uL (4.5-5.90); Red Cell Distribution Width 16.1 % (11.8-14.3)
--- NOTE | 2024-10-10 10:32 | DVH ---
EXAM: XY CHEST PORTABLE Indication: pt intubated Technique: Single frontal view of the chest was obtained Comparison: XY CHEST PORTABLE on DOS: 10/09/24, XY CHEST XRAY 1 VIEW on DOS: 10/08/24, XY CHEST PORTABLE on DOS: 10/07/24, XY CHEST XRAY 1 VIEW on DOS: 10/06/24, XY CHEST XRAY 1 VIEW on DOS: 10/06/24 FINDINGS: Lines and Tubes: Endotracheal tube projects 4.3 cm above the chace. Right internal jugular central venous catheter tip projects over the superior vena cava. Enteric tube tip projects over expected reg ion of the stomach. Lungs: No focal consolidation. Pleura: No effusion. No pneumothorax. Cardiomediastinal contours: Mild cardiomegaly. Bones: No acute osseous abnormality. IMPRESSION: Mild cardiomegaly. No acute cardiopulmonary disease.
--- NOTE | 2024-10-10 11:06 | DVHPN2 ---
Progress Note Date Seen: October 10, 2024 Has the PT tested + for MRSA If YES, has PT been informed?: No Medical Necessity Reason Pt with a Central, PICC or Fol: Yes The following are medically ne: Central Line, Venegas Catheter Reason for venegas catheter: Strict I&O Subjective Patient reports: Other Review of Systems: Deferred Objective vital signs Vital Sign Date Time Temp Pulse Resp B/P (MAP) Pulse Ox O2 Delivery O2 Flow Rate FiO2 10/10/24 08:00 16 100 Mechanical Ventilator+ 30 30 10/10/24 08:00 63 10/10/24 07:58 119/68 (85) 10/10/24 06:15 98.1 208.6 Total Intake and Output 10/09/24 10/09/24 10/10/24 15:00 23:00 07:00 Intake Total 70 ml 310 ml Output Total 300 ml 150 ml Balance -230 ml 160 ml medications Current Medications Medications Dose Ordered Sig/Conner Route Start Time Stop Time Status Last Admin Dose Admin Aspirin 81 mg DAILY PO 10/01/24 10:00 10/10/24 10:44 81 MG Gabapentin 300 mg HS PO 09/30/24 22:00 10/09/24 21:36 300 MG Carvedilol 6.25 mg BID PO 09/30/24 22:00 Hold 09/30/24 17:32 6.25 MG Morphine Sulfate 2 mg Q30MP PRN IV 09/30/24 15:45 Ondansetron HCl 4 mg Q4HP PRN IV 09/30/24 15:45 Nitroglycerin 0.4 mg Q5MINP PRN SL 09/30/24 15:45 Midazolam HCl 50 ml @ 1 mls/hr Q24H IV 09/30/24 19:15 10/06/24 09:13 2 MLS/HR Vasopressin 20 units/Sodium Chloride 100 ml @ 9 mls/hr Q11H7M IV 09/30/24 19:45 Norepinephrine Bitartrate 250 ml @ 3.75 mls/hr Q24H IV 09/30/24 20:00 10/06/24 16:29 3.75 MLS/HR Pantoprazole Sodium 40 mg DAILY IV 10/01/24 10:00 10/10/24 10:43 40 MG Acetaminophen 650 mg Q6HP PRN NG 10/01/24 02:00 10/01/24 15:00 650 MG Furosemide 80 mg BIDD IV 10/02/24 07:30 10/09/24 17:23 80 MG Enteral Nutritional Formula 1,000 ml 30ML/HR GT 10/03/24 10:00 10/09/24 02:41 1,000 ML Docusate Sodium 100 mg DAILY GT 10/05/24 10:00 10/10/24 10:43 100 MG Diagnostic Test (Pha) 1 strip Q6HR 10/04/24 12:00 10/10/24 06:27 1 STRIP Insulin Human Regular Q6HR SC 10/04/24 12:00 10/09/24 23:51 2 UNITS Dextrose 50 ml UD PRN IV 10/04/24 12:00 Propofol 100 ml @ 2.697 mls/ hr Q24H IV 10/08/24 16:45 Fentanyl Citrate 250 ml @ 2.5 mls/hr Q24H IV 10/08/24 16:45 Polyethylene Glycol 17 gm DAILY PO 10/11/24 10:00 UNV Sennosides 8.6 mg HS PO 10/10/24 22:00 UNV Examination: GENERAL:Abnormal, MSK:Abnormal, NEURO:Abnormal laboratory and microbiology Laboratory Tests 10/10/24 09:00 Test 10/10/24 09:00 Range/Units Serum Glucose 154 H 74-106 mg/dL Microbiology Date/Time Source Procedure Growth Status 10/05/24 19:49 Blood Blood Culture - Preliminary NO GROWTH AFTER 72 HOURS OF INCUBATION. Resulted 10/03/24 15:40 Nose MRSA Screen - Final Complete 10/01/24 00:36 Urine - Venegas Port Urine Culture - Final Complete Problem List/Assessment/Plan Problem List/Assessment/Plan Acute kidney injury likely possibly ATN in the setting of shock Shock Chronic kidney disease stage 3a Acute respiratory failure Methamphetamine intoxication Sepsis Hypokalemia Hypoglycemia Recommendations HD today next HD sunday Plan discussed with: Other My Orders My Orders Orders - LUIZ RIDLEY MD Procedure Category Date Status Time Hemodialysis Orders ORDERS 10/09/24 Transmitted 11:48 Dietary Evaluation Review Comments: 1) Initiate Pro-Stat @ 30 mL qd. Flush 30 mL H2O AC/PC. 2) Increase TF to 35 mL/hr goal rate. TF rate will provide 1612 kcals, 83g Pro (including Pro-Stat), and 626 mL free H2O per 24 hrs. TF rate will meet ~ 79% estimated energy needs and 75% estimated protein needs 3) Initiate vitamin C @ 500 mg bid and zinc sulfate @ 220 mg qd for 7-10 days. 4) Consider Nephro-[place] @ 1 tb qd 5) Follow-up with nephrology, cardiology, pulmonology, and social service coordinator 6) Continue to monitor I&O, labs, and skin integrity Expected Outcomes/Goals: 1) labs to improve 2) wound to improve 3) diet to advance 4) f/u in 2-3 days LUIZ RIDLEY MD October 10, 2024 11:06
[2024-10-10] MEDS: ALBUMIN 25% 100 ML IV ONE ×2 (14:45→15:00)
--- NOTE | 2024-10-10 14:56 | DVHPN2 ---
Progress Note Date Seen: October 10, 2024 Resident Creating Document: SHONDA MANN RESIDENT Has the PT tested + for MRSA If YES, has PT been informed?: No Medical Necessity Reason Pt with a Central, PICC or Fol: Yes The following are medically ne: Central Line, Venegas Catheter Reason for venegas catheter: Strict I&O Subjective Review of Systems Patient seen and examined at bedside, Patient is undergoing CPAP trial Patient is not fully awake Patient got antibiotic for seven days, discontinue all antibiotics. Objective vital signs Vital Sign Date Time Temp Pulse Resp B/P (MAP) Pulse Ox O2 Delivery O2 Flow Rate FiO2 10/10/24 13:54 66 19 126/71 (89) 100 30 10/10/24 12:30 97.9 208.2 10/10/24 12:00 Mechanical Ventilator+ Total Intake and Output 10/09/24 10/09/24 10/10/24 15:00 23:00 07:00 Intake Total 70 ml 310 ml Output Total 300 ml 150 ml Balance -230 ml 160 ml medications Current Medications Medications Dose Ordered Sig/Conner Route Start Time Stop Time Status Last Admin Dose Admin Aspirin 81 mg DAILY PO 10/01/24 10:00 10/10/24 10:44 81 MG Gabapentin 300 mg HS PO 09/30/24 22:00 10/09/24 21:36 300 MG Carvedilol 6.25 mg BID PO 09/30/24 22:00 Hold 09/30/24 17:32 6.25 MG Morphine Sulfate 2 mg Q30MP PRN IV 09/30/24 15:45 Ondansetron HCl 4 mg Q4HP PRN IV 09/30/24 15:45 Nitroglycerin 0.4 mg Q5MINP PRN SL 09/30/24 15:45 Midazolam HCl 50 ml @ 1 mls/hr Q24H IV 09/30/24 19:15 10/06/24 09:13 2 MLS/HR Vasopressin 20 units/Sodium Chloride 100 ml @ 9 mls/hr Q11H7M IV 09/30/24 19:45 Norepinephrine Bitartrate 250 ml @ 3.75 mls/hr Q24H IV 09/30/24 20:00 10/06/24 16:29 3.75 MLS/HR Pantoprazole Sodium 40 mg DAILY IV 10/01/24 10:00 10/10/24 10:43 40 MG Acetaminophen 650 mg Q6HP PRN NG 10/01/24 02:00 10/01/24 15:00 650 MG Furosemide 80 mg BIDD IV 10/02/24 07:30 10/09/24 17:23 80 MG Enteral Nutritional Formula 1,000 ml 30ML/HR GT 10/03/24 10:00 10/09/24 02:41 1,000 ML Docusate Sodium 100 mg DAILY GT 10/05/24 10:00 10/10/24 10:43 100 MG Diagnostic Test (Pha) 1 strip Q6HR 10/04/24 12:00 10/10/24 12:00 1 STRIP Insulin Human Regular Q6HR SC 10/04/24 12:00 10/10/24 12:00 2 UNITS Dextrose 50 ml UD PRN IV 10/04/24 12:00 Propofol 100 ml @ 2.697 mls/ hr Q24H IV 10/08/24 16:45 Fentanyl Citrate 250 ml @ 2.5 mls/hr Q24H IV 10/08/24 16:45 Polyethylene Glycol 17 gm DAILY PO 10/11/24 10:00 Sennosides 8.6 mg HS PO 10/10/24 22:00 Examination GENERAL:Abnormal, HEENT:Abnormal, LUNGS:Abnormal, NEURO:Abnormal laboratory and microbiology Laboratory Tests 10/10/24 09:00 Test 10/10/24 09:00 Range/Units Serum Glucose 154 H 74-106 mg/dL Microbiology Date/Time Source Procedure Growth Status 10/05/24 19:49 Blood Blood Culture - Preliminary NO GROWTH AFTER 72 HOURS OF INCUBATION. Resulted 10/03/24 15:40 Nose MRSA Screen - Final Complete 10/01/24 00:36 Urine - [place] Urine Culture - Final Complete Problem List/Assessment/Plan Problem List/Assessment/Plan Assessment: Acute hypoxic respiratory failure due to multi-organism pneumonia Septic shock due to multi-organism pneumonia Leukocytosis due to septic shock CIARAN started on HD cardiomyopathy EF 10% substance abuse pos've for amphetamines on admission Plan: Vent support Titrate to maintain sats 90% or above continue HD per nephrology Patient is off sedation for 48 hrs Sedation holiday daily, Patient did not fully awake Pressure support /5, extubate when ready discontinue all antibiotics. F/u cultures Bronchodilators Monitor renal function Monitor electrolytes Supplement as needed Pressors as needed for hemodynamic support To maintain a mean arterial pressure of 65 mmHg Case Discussed with Dr Ovalle Plan discussed with: Other (RN) Dietary Evaluation Review Comments: 1) Initiate Pro-Stat @ 30 mL qd. Flush 30 mL H2O AC/PC. 2) Increase TF to 35 mL/hr goal rate. TF rate will provide 1612 kcals, 83g Pro (including Pro-Stat), and 626 mL free H2O per 24 hrs. TF rate will meet ~ 79% estimated energy needs and 75% estimated protein needs 3) Initiate vitamin C @ 500 mg bid and zinc sulfate @ 220 mg qd for 7-10 days. 4) Consider Nephro-[place] @ 1 tb qd 5) Follow-up with nephrology, cardiology, pulmonology, and social media marketing analyst 6) Continue to monitor I&O, labs, and skin integrity Expected Outcomes/Goals: 1) labs to improve 2) wound to improve 3) diet to advance 4) f/u in 2-3 days Date of Service: October 10, 2024 Billing Provider: ISHMAEL OVALLE MD Common Visit Codes: NOT BILLABLE SHONDA MANN RESIDENT October 10, 2024 14:56 ISHMAEL OVALLE MD October 11, 2024 11:56
--- NOTE | 2024-10-10 15:11 | DVHPN2 ---
Assessment/Plan Assessment/Plan ICU note covering seen today during rounds, c/w SAT SBT. no mental status, grimace on pain, no mental status. ct head today physical exam sedated intubated on mech ventilation PERRLA no responds to pain mechanical breath sounds s1 s2 RRR abdomen soft nontender no LE edema labs ekg imaging reviewed assessment and plan Acute metabolic/toxic encephalopathy Acute hypoxic respiratory failure due to multi-organism pneumonia Septic shock due to multi-organism pneumonia Leukocytosis due to septic shock Thrombocytopenia due to septic shock ATN on HD Electrolytes imbalance in the setting of CIARAN in septic shock Acute on chronic systolic heart failure HFrEF 10% Atrial fibrillation with RVR type 2 DC demand ischemia Uncontrolled diabetes mellitus type 2 with hyperglycemia Polysubstance (alcohol, marijuana, methamphetamine, and tobacco) use disorder sedation vacation CPAP c/w mechanical vent c/w pressors maintain MAP >65 c/w insulin maintain FS 150-200 empiric abx done dialysis per renal diet TF hold for CPAP dvt ppx lovenox gi ppx protonix full code condition critical prognosis poor 35 mins crit care time spent Plan discussed with: Other My Orders Orders - MICHELLE WARREN MD Procedure Category Date Status Time Chest Portable XY 10/10/24 Resulted 08:38 Abg W/ Co-Ox RT 10/10/24 Logged 09:[address] 10/10/24 Logged 10:38 Polyethylene Glycol PHA 10/11/24 In Process 17g Powder (Miralax 10:00 Senna Pod Tablet PHA 10/10/24 In Process (Senokot Tablet) 22:00 Date of Service: October 10, 2024 Billing Provider: MICHELLE WARREN MD Common Visit Codes: [id number] CARE 30-74 MIN MICHELLE WARREN MD October 10, 2024 15:11
[2024-10-10] MEDS: POLYETHYLENE GLYCOL 17 GM PWDR PO ONE (17:16)
--- NOTE | 2024-10-10 18:38 | DVH ---
EXAM: CT HEAD WITHOUT CONTRAST INDICATION: not waking up TECHNIQUE: CT of the head without intravenous contrast. Radiation Dose Information: CT Dose: CTDI volume is 61.94 mGy. Dose-length product is 1220.39 mGy*cm The dose indicators for CT are the volume Computed Tomography (CT) Dose Index (CTDIvol) and the Dose Length Product (DLP), and are measured in units of mGy and mGy-cm, respectively. These indicators are not patient dose, but values generated from the CT scanner acquisition factors. The report includes radiation exposure data for exposures received during this examination. COMPARISON: CT HEAD WITHOUT CONTRAST on DOS: 09/30/24 FINDINGS: Endotracheal tube and oral gastric tube are visualized. There is no evidence of acute intracranial hemorrhage, extra-axial collection, mass effect, midline s hift, herniation or hydrocephalus. The ventricles, sulci and cisterns are age appropriate. The pérez-white differentiation is intact. Patchy periventricular and subcortical white matter hypoattenuation is nonspecific but may be related to small vessel ischemic disease. The visualized paranasal sinuses and mastoid air cells are clear. The surrounding soft tissues and osseous structures are unremarkable. IMPRESSION: 1. No acute intracranial hemorrhage 2. No CT findings of territorial ischemia. 3. Endotracheal tube and oral gastric tube visualized. 4. Sulci and gyri appear normal.
--- NOTE | 2024-10-10 19:09 | DVHPN2 ---
Progress Note - Dictate Date Seen: October 10, 2024 Has the PT tested + for MRSA If YES, has PT been informed?: No Medical Necessity Reason Pt with a Central, PICC or Fol: Yes The following are medically ne: Central Line, Venegas Catheter Reason for venegas catheter: Strict I&O Subjective Patient was seen and evaluated in follow up in the ICU. Patient is intubated on ventilator. FiO2 30%. Patient remains unresponsive to both verbal and painful stimuli. BUN 57, TAIL END RIDER 5.26, AST 147, ALT 382. Chest x-ray shows mild cardiomegaly. vital signs Vital Sign Date Time Temp Pulse Resp B/P (MAP) Pulse Ox O2 Delivery O2 Flow Rate FiO2 10/10/24 11:15 98.1 74 16 125/69 (87) 100 208.6 10/10/24 10:00 30 10/10/24 10:00 Mechanical Ventilator+ Total Intake and Output 10/09/24 10/09/24 10/10/24 15:00 23:00 07:00 Intake Total 70 ml 310 ml Output Total 300 ml 150 ml Balance -230 ml 160 ml medications Current Medications Medications Dose Ordered Sig/Conner Route Start Time Stop Time Status Last Admin Dose Admin Aspirin 81 mg DAILY PO 10/01/24 10:00 10/10/24 10:44 81 MG Gabapentin 300 mg HS PO 09/30/24 22:00 10/09/24 21:36 300 MG Carvedilol 6.25 mg BID PO 09/30/24 22:00 Hold 09/30/24 17:32 6.25 MG Morphine Sulfate 2 mg Q30MP PRN IV 09/30/24 15:45 Ondansetron HCl 4 mg Q4HP PRN IV 09/30/24 15:45 Nitroglycerin 0.4 mg Q5MINP PRN SL 09/30/24 15:45 Midazolam HCl 50 ml @ 1 mls/hr Q24H IV 09/30/24 19:15 10/06/24 09:13 2 MLS/HR Vasopressin 20 units/Sodium Chloride 100 ml @ 9 mls/hr Q11H7M IV 09/30/24 19:45 Norepinephrine Bitartrate 250 ml @ 3.75 mls/hr Q24H IV 09/30/24 20:00 10/06/24 16:29 3.75 MLS/HR Pantoprazole Sodium 40 mg DAILY IV 4/23/25 10:00 10/10/24 10:43 40 MG Acetaminophen 650 mg Q6HP PRN NG 10/01/24 02:00 10/01/24 15:00 650 MG Furosemide 80 mg BIDD IV 10/02/24 07:30 10/09/24 17:23 80 MG Enteral Nutritional Formula 1,000 ml 30ML/HR GT 10/03/24 10:00 10/09/24 02:41 1,000 ML Docusate Sodium 100 mg DAILY GT 10/05/24 10:00 10/10/24 10:43 100 MG Diagnostic Test (Pha) 1 strip Q6HR 10/04/24 12:00 10/10/24 06:27 1 STRIP Insulin Human Regular Q6HR SC 10/04/24 12:00 10/09/24 23:51 2 UNITS Dextrose 50 ml UD PRN IV 10/04/24 12:00 Propofol 100 ml @ 2.697 mls/ hr Q24H IV 10/08/24 16:45 Fentanyl Citrate 250 ml @ 2.5 mls/hr Q24H IV 10/08/24 16:45 Polyethylene Glycol 17 gm DAILY PO 10/11/24 10:00 Sennosides 8.6 mg HS PO 10/10/24 22:00 objective GENERAL: Ill appearing, intubated on ventilator. EYES: PERRL, EOMI. Anicteric. HENT: Moist mucous membranes. LUNGS: Transmitted breath sounds bilaterally. Decreased air entry bilaterally. CARDIOVASCULAR: Irregular rate and rhythm. ABDOMEN: Soft, non-tender and non-distended. EXTREMITIES: No edema. SKIN: Warm, dry. laboratory and microbiology Laboratory Tests 10/10/24 09:00 Test 10/10/24 09:00 Range/Units Serum Glucose 154 H 74-106 mg/dL Problem List Chest pain. NSTEMI. Atrial Fibrillation with RVR. CIARAN. Community acquired pneumonia. Acute on chronic systolic heart failure EF 10%. DM2 with hyperglycemia. Constipation. Anxiety. Acute respiratory failure. Assessment/Plan Continued all current supportive medical care. Echocardiogram. Aspirin, Lipitor. IV antibiotics as ordered. DVT prophylactics. Morphine for pain management. Vasopressors for hemodynamic support. Additional plan as per the hospital course. Critical care time of 45 minutes provided to include time spent evaluation of patient at bedside, when appropriate patient/family education for diagnosis, treatment plan, review of pertinent medical information and discussion of care with specialty providers and PCP. Mechanical ventilator parameters, treatment and adjustments have personally been reviewed by me and treatment plan by lead burner supervisor has also been reviewed. Dietary Evaluation Review Comments: 1) Initiate Pro-Stat @ 30 mL qd. Flush 30 mL H2O AC/PC. 2) Increase TF to 35 mL/hr goal rate. TF rate will provide 1612 kcals, 83g Pro (including Pro-Stat), and 626 mL free H2O per 24 hrs. TF rate will meet ~ 79% estimated energy needs and 75% estimated protein needs 3) Initiate vitamin C @ 500 mg bid and zinc sulfate @ 220 mg qd for 7-10 days. 4) Consider Nephro-[place] @ 1 tb qd 5) Follow-up with nephrology, cardiology, pulmonology, and professor of social work 6) Continue to monitor I&O, labs, and skin integrity Expected Outcomes/Goals: 1) labs to improve 2) wound to improve 3) diet to advance 4) f/u in 2-3 days Plan discussed with: Other DESHAUN PETERSON MD October 10, 2024 11:48
[2024-10-10] MEDS: SENNA 8.6 MG TAB PO SCH (21:46)
[2024-10-11] VITALS (108 sets, daily range): BP systolic 106–137; BP diastolic 60–80; PULSE 62–81; RESP 12–22; TEMP 96.3–99.5; O2SAT 98–100
[2024-10-11 03:59] LABS: Hematocrit 46.6 % (41.0-53.0)
[2024-10-11 04:01] LABS: Hemoglobin 15.7 g/dL (13.5-17.5); Mean Corpuscular Hemoglobin 32.7 pg (28.0-32.0); Mean Corpuscular Hgb Conc. 33.7 g/dL (32.0-36.0); Mean Corpuscular Volume 96.9 fL (80.0-100.0); Platelet Count (auto) 59 10^3/uL (140-450); Red Blood Cells 4.81 10^6/uL (4.5-5.90); Red Cell Distribution Width 16.1 % (11.8-14.3)
[2024-10-11 04:11] LABS: Band Neutrophils % (manual) 0; Basophils % (manual) 0 (0.0-2.0); Blast Cells 0; Metamyelocytes % 0; Myelocytes % 0; Promyelocytes % 0; Reactive Lymphocytes 0
[2024-10-11 04:16] LABS: Anion Gap 13 (5-15); Calcium 10.4 mg/dL (8.7-10.4); Carbon Dioxide 28 mmol/L (20-31); Chloride 99 mmol/L (98-107); Potassium 3.7 mmol/L (3.5-5.1); Sodium 140 mmol/L (136-145)
[2024-10-11 04:22] LABS: BUN/Creatinine Ratio 10.6 (10.0-20.0); Blood Urea Nitrogen 46 mg/dL (9-23); Glucose 108 mg/dL (74-106); Magnesium 2.5 mg/dL (1.6-2.6)
[2024-10-11 04:27] LABS: Phosphorus 6.2 mg/dL (2.4-5.1)
--- NOTE | 2024-10-11 05:56 | DVH ---
CHEST RADIOGRAPH Indication: INTUBATED Technique: Single frontal view of the chest was obtained COMPARISON: XY CHEST PORTABLE on DOS: 10/10/24, XY CHEST PORTABLE on DOS: 10/09/24, XY CHEST XRAY 1 VIEW on DOS: 10/08/24, XY CHEST PORTABLE on DOS: 10/07/24, XY CHEST XRAY 1 VIEW on DOS: 10/06/24 FINDINGS: Lines and Tubes: Unchanged. Lungs: Clear Pleura: No effusion. No pneumothorax. Cardiomediastinal contours: Cardiomegaly. Bones: Unremarkable IMPRESSION: 1. No acute disease. 2. Cardiomegaly. 3. Lines and tubes unchanged.
[2024-10-11 06:08] LABS: Eosinophils % (manual) 6 (0-7); Lymphocytes % (manual) 6 (10.0-50.0); Monocytes % (manual) 17 (0-12); Platelet Estimate Decreased
[2024-10-11] MEDS: POLYETHYLENE GLYCOL 17 GM PWDR PO SCH (09:12)
--- NOTE | 2024-10-11 11:50 | DVHPN2 ---
Progress Note - Dictate Date Seen: October 11, 2024 Has the PT tested + for MRSA If YES, has PT been informed?: No Medical Necessity Reason Pt with a Central, PICC or Fol: Yes The following are medically ne: Central Line, Venegas Catheter Reason for venegas catheter: Strict I&O vital signs Vital Sign Date Time Temp Pulse Resp B/P (MAP) Pulse Ox O2 Delivery O2 Flow Rate FiO2 10/11/24 10:30 99.0 70 16 124/70 (88) 100 210.2 10/11/24 10:21 Mechanical Ventilator+ 30 30 Total Intake and Output 10/10/24 10/10/24 10/11/24 15:00 23:00 07:00 Intake Total 50 ml 290 ml Output Total 250 ml 100 ml Balance -200 ml 190 ml medications Current Medications Medications Dose Ordered Sig/Conner Route Start Time Stop Time Status Last Admin Dose Admin Aspirin 81 mg DAILY PO 10/01/24 10:00 10/11/24 09:12 81 MG Gabapentin 300 mg HS PO 09/30/24 22:00 10/10/24 21:46 300 MG Carvedilol 6.25 mg BID PO 09/30/24 22:00 Hold 09/30/24 17:32 6.25 MG Morphine Sulfate 2 mg Q30MP PRN IV 09/30/24 15:45 Ondansetron HCl 4 mg Q4HP PRN IV 09/30/24 15:45 Nitroglycerin 0.4 mg Q5MINP PRN SL 09/30/24 15:45 Midazolam HCl 50 ml @ 1 mls/hr Q24H IV 09/30/24 19:15 10/06/24 09:13 2 MLS/HR Vasopressin 20 units/Sodium Chloride 100 ml @ 9 mls/hr Q11H7M IV 09/30/24 19:45 Norepinephrine Bitartrate 250 ml @ 3.75 mls/hr Q24H IV 09/30/24 20:00 10/06/24 16:29 3.75 MLS/HR Pantoprazole Sodium 40 mg DAILY IV 10/01/24 10:00 10/11/24 09:12 40 MG Acetaminophen 650 mg Q6HP PRN NG 10/01/24 02:00 10/01/24 15:00 650 MG Furosemide 80 mg BIDD IV 10/02/24 07:30 10/11/24 05:39 80 MG Enteral Nutritional Formula 1,000 ml 30ML/HR GT 10/03/24 10:00 10/11/24 03:39 1,000 ML Docusate Sodium 100 mg DAILY GT 10/05/24 10:00 10/11/24 09:12 100 MG Diagnostic Test (Pha) 1 strip Q6HR 10/04/24 12:00 10/11/24 11:34 1 STRIP Insulin Human Regular Q6HR SC 10/04/24 12:00 10/11/24 11:34 2 UNITS Dextrose 50 ml UD PRN IV 10/04/24 12:00 Propofol 100 ml @ 2.697 mls/ hr Q24H IV 10/08/24 16:45 Fentanyl Citrate 250 ml @ 2.5 mls/hr Q24H IV 10/08/24 16:45 Polyethylene Glycol 17 gm DAILY PO 10/11/24 10:00 10/11/24 09:12 17 GM Sennosides 8.6 mg HS PO 10/10/24 22:00 10/10/24 21:46 8.6 MG laboratory and microbiology Laboratory Tests 10/11/24 03:26 Test 10/11/24 03:26 Range/Units Serum Glucose 108 H 74-106 mg/dL Assessment/Plan Covering for Dr. Rizvi Impression Acute hypoxemic respiratory failure Elevated troponin NSTEMI CIARAN started on HD cardiomyopathy EF 10% substance abuse pos've for amphetamines on admission Patient seen and examined in ICU Events On mechanical ventilation S/p intubation PEEP 5, FiO2 30% Off sedation for several days Patient still not awake enough Labs and imaging reviewed CT of the brain negative for acute abnormalities Management Vent support Titrate to maintain sats 90% or above continue HD per nephrology When patient is more awake, proceed to weaning trial Pressure support 12/13, extubate when ready ok to use precedex DC antibiotics Bronchodilators Monitor renal function Monitor electrolytes Supplement as needed Pressors as needed for hemodynamic support To maintain a mean arterial pressure of 65 mmHg F/u cardiology Prognosis poor Recommend trache vs comfort measures DVT prophylaxis Critical care time 35 minutes Dietary Evaluation Review Comments: 1) Initiate Pro-Stat @ 30 mL qd. Flush 30 mL H2O AC/PC. 2) Increase TF to 35 mL/hr goal rate. TF rate will provide 1612 kcals, 83g Pro (including Pro-Stat), and 626 mL free H2O per 24 hrs. TF rate will meet ~ 79% estimated energy needs and 75% estimated protein needs 3) Initiate vitamin C @ 500 mg bid and zinc sulfate @ 220 mg qd for 7-10 days. 4) Consider Nephro-[place] @ 1 tb qd 5) Follow-up with nephrology, cardiology, pulmonology, and social worker assistant 6) Continue to monitor I&O, labs, and skin integrity Expected Outcomes/Goals: 1) labs to improve 2) wound to improve 3) diet to advance 4) f/u in 2-3 days Plan discussed with: Other (Rn) ISHMAEL MARROQUIN MD October 11, 2024 11:50
--- NOTE | 2024-10-11 12:20 | DVHPN2 ---
Reviewed: Care Plan, H&P, Labs, Medications, Previous Orders, Radiology, Other (Consultations) Changes from previous H/P or p: No Changes General: Per HPI Objective Vitals Vital Signs Date Time Temp Pulse Resp B/P (MAP) Pulse Ox O2 Delivery O2 Flow Rate FiO2 10/11/24 12:01 17 99 Mechanical Ventilator+ 30 30 10/11/24 12:00 99.0 72 130/73 (92) 210.2 Intake/Output Intake and Output 10/11/24 07:00 Intake Total 340 ml Output Total 350 ml Balance -10 ml Intake Oral 150 ml Tube Feeding 190 ml Output Urine Total 350 ml General Appearance: Other (Intubated and sedated) HEENT: Atraumatic Lungs: Other (Mechanical ventilation sounds) Cardiovascular: Normal S1, Normal S2, Other (Irregularly irregular) Abdomen: Soft Genitourinary: Other (Inman's catheter) Musculoskeletal: Other (Motor removed) Extremities: Other (Dusky lower extremities) Neuro: Other (Intubated and sedated) Psych/Mental Status: Other (Intubated and sedated) Medications Current Medications Medications Dose Ordered Sig/Conner Route Start Time Stop Time Status Last Admin Dose Admin Aspirin 81 mg DAILY PO 10/01/24 10:00 10/11/24 09:12 81 MG Gabapentin 300 mg HS PO 09/30/24 22:00 10/10/24 21:46 300 MG Carvedilol 6.25 mg BID PO 09/30/24 22:00 Hold 09/30/24 17:32 6.25 MG Morphine Sulfate 2 mg Q30MP PRN IV 09/30/24 15:45 Ondansetron HCl 4 mg Q4HP PRN IV 09/30/24 15:45 Nitroglycerin 0.4 mg Q5MINP PRN SL 09/30/24 15:45 Midazolam HCl 50 ml @ 1 mls/hr Q24H IV 09/30/24 19:15 10/06/24 09:13 2 MLS/HR Vasopressin 20 units/Sodium Chloride 100 ml @ 9 mls/hr Q11H7M IV 09/30/24 19:45 Norepinephrine Bitartrate 250 ml @ 3.75 mls/hr Q24H IV 09/30/24 20:00 10/06/24 16:29 3.75 MLS/HR Pantoprazole Sodium 40 mg DAILY IV 10/01/24 10:00 10/11/24 09:12 40 MG Acetaminophen 650 mg Q6HP PRN NG 10/01/24 02:00 10/01/24 15:00 650 MG Furosemide 80 mg BIDD IV 10/02/24 07:30 10/11/24 05:39 80 MG Enteral Nutritional Formula 1,000 ml 30ML/HR GT 10/03/24 10:00 10/11/24 03:39 1,000 ML Docusate Sodium 100 mg DAILY GT 10/05/24 10:00 10/11/24 09:12 100 MG Diagnostic Test (Pha) 1 strip Q6HR 10/04/24 12:00 10/11/24 11:34 1 STRIP Insulin Human Regular Q6HR SC 10/04/24 12:00 10/11/24 11:34 2 UNITS Dextrose 50 ml UD PRN IV 10/04/24 12:00 Propofol 100 ml @ 2.697 mls/ hr Q24H IV 10/08/24 16:45 Fentanyl Citrate 250 ml @ 2.5 mls/hr Q24H IV 10/08/24 16:45 Polyethylene Glycol 17 gm DAILY PO 10/11/24 10:00 10/11/24 09:12 17 GM Sennosides 8.6 mg HS PO 10/10/24 22:00 10/10/24 21:46 8.6 MG Laboratory Results Laboratory Tests 10/11/24 03:26 Chemistry Test 10/11/24 03:26 Calcium Level 10.4 mg/dL (8.7-10.4) Magnesium Level 2.5 mg/dL (1.6-2.6) Phosphorus Level 6.2 mg/dL (2.4-5.1) H Urinalysis Test 10/01/24 00:36 Urine Creatinine 241.60 mg/dL (30.0-125.0) H Urine Sodium 35 mmol/L (40-220) L Blood Gas Results Test 10/11/24 07:03 Arterial Blood pH 7.409 (7.350-7.450) FiO2 % 30.0 Microbiology Microbiology Date/Time Source Procedure Growth Status 10/05/24 19:49 Blood Blood Culture - Final NO GROWTH AFTER 5 DAYS OF INCUBATION. Complete 10/03/24 15:40 Nose MRSA Screen - Final Complete 10/01/24 00:36 Urine - [place] Urine Culture - Final Complete Labs and/or images reviewed: Labs reviewed by me, Image(s) reviewed by me Assessment/Plan Assessment/Plan ASSESSMENT AND PLAN Acute metabolic/toxic encephalopathy Acute hypoxic respiratory failure due to multi-organism pneumonia Septic shock due to multi-organism pneumonia Leukocytosis due to septic shock Thrombocytopenia due to septic shock ATN on HD Electrolytes imbalance in the setting of CIARAN in septic shock Acute on chronic systolic heart failure HFrEF 10% Atrial fibrillation with RVR type 2 OH demand ischemia Uncontrolled diabetes mellitus type 2 with hyperglycemia Polysubstance (alcohol, marijuana, methamphetamine, and tobacco) use disorder sedation vacation CPAP c/w mechanical vent c/w pressors maintain MAP >65 c/w insulin maintain FS 150-200 empiric abx done dialysis per renal 10/11/2024: remains on ventilator off sedation for days diet TF hold for CPAP dvt ppx lovenox gi ppx protonix full code condition critical prognosis poor >45 mins critical care time spent Plan discussed with: Other (nursing) Date of Service: October 11, 2024 Billing Provider: YESENIA KEATING DO Common Visit Codes: [id number] CARE 30-74 MIN YESENIA KEATING DO October 11, 2024 12:20
--- NOTE | 2024-10-11 15:06 | DVHPN2 ---
Progress Note Date Seen: October 11, 2024 Has the PT tested + for MRSA If YES, has PT been informed?: No Medical Necessity Reason Pt with a Central, PICC or Fol: Yes The following are medically ne: Central Line, Venegas Catheter Reason for venegas catheter: Strict I&O Subjective Patient reports: Other (Remain intubated) Review of Systems: Deferred Objective vital signs Vital Sign Date Time Temp Pulse Resp B/P (MAP) Pulse Ox O2 Delivery O2 Flow Rate FiO2 10/11/24 14:13 62 10/11/24 14:13 30 10/11/24 14:13 18 100 Mechanical Ventilator+ 10/11/24 14:04 111/63 (79) 10/11/24 12:00 99.0 210.2 Total Intake and Output 10/10/24 10/10/24 10/11/24 15:00 23:00 07:00 Intake Total 50 ml 290 ml Output Total 250 ml 100 ml Balance -200 ml 190 ml medications Current Medications Medications Dose Ordered Sig/Conner Route Start Time Stop Time Status Last Admin Dose Admin Aspirin 81 mg DAILY PO 10/01/24 10:00 10/11/24 09:12 81 MG Gabapentin 300 mg HS PO 09/30/24 22:00 10/10/24 21:46 300 MG Carvedilol 6.25 mg BID PO 09/30/24 22:00 Hold 09/30/24 17:32 6.25 MG Morphine Sulfate 2 mg Q30MP PRN IV 09/30/24 15:45 Ondansetron HCl 4 mg Q4HP PRN IV 09/30/24 15:45 Nitroglycerin 0.4 mg Q5MINP PRN SL 09/30/24 15:45 Midazolam HCl 50 ml @ 1 mls/hr Q24H IV 09/30/24 19:15 10/06/24 09:13 2 MLS/HR Vasopressin 20 units/Sodium Chloride 100 ml @ 9 mls/hr Q11H7M IV 09/30/24 19:45 Norepinephrine Bitartrate 250 ml @ 3.75 mls/hr Q24H IV 09/30/24 20:00 10/06/24 16:29 3.75 MLS/HR Pantoprazole Sodium 40 mg DAILY IV 10/01/24 10:00 10/11/24 09:12 40 MG Acetaminophen 650 mg Q6HP PRN NG 10/01/24 02:00 10/01/24 15:00 650 MG Furosemide 80 mg BIDD IV 10/02/24 07:30 10/11/24 05:39 80 MG Enteral Nutritional Formula 1,000 ml 30ML/HR GT 10/03/24 10:00 10/11/24 03:39 1,000 ML Docusate Sodium 100 mg DAILY GT 10/05/24 10:00 10/11/24 09:12 100 MG Diagnostic Test (Pha) 1 strip Q6HR 10/04/24 12:00 10/11/24 11:34 1 STRIP Insulin Human Regular Q6HR SC 10/04/24 12:00 10/11/24 11:34 2 UNITS Dextrose 50 ml UD PRN IV 10/04/24 12:00 Propofol 100 ml @ 2.697 mls/ hr Q24H IV 10/08/24 16:45 Fentanyl Citrate 250 ml @ 2.5 mls/hr Q24H IV 10/08/24 16:45 Polyethylene Glycol 17 gm DAILY PO 10/11/24 10:00 10/11/24 09:12 17 GM Sennosides 8.6 mg HS PO 10/10/24 22:00 10/10/24 21:46 8.6 MG Examination: MSK:Abnormal, NEURO:Abnormal laboratory and microbiology Laboratory Tests 10/11/24 03:26 Test 10/11/24 03:26 Range/Units Serum Glucose 108 H 74-106 mg/dL Microbiology Date/Time Source Procedure Growth Status 10/05/24 19:49 Blood Blood Culture - Final NO GROWTH AFTER 5 DAYS OF INCUBATION. Complete 10/03/24 15:40 Nose MRSA Screen - Final Complete 10/01/24 00:36 Urine - [place] Urine Culture - Final Complete Problem List/Assessment/Plan Problem List/Assessment/Plan Acute kidney injury likely possibly ATN in the setting of shock Shock Chronic kidney disease stage 3a Acute respiratory failure Methamphetamine intoxication Sepsis Hypokalemia Hypoglycemia Recommendations next Sunday Plan discussed with: Other Dietary Evaluation Review Comments: 1) Initiate Pro-Stat @ 30 mL qd. Flush 30 mL H2O AC/PC. 2) Increase TF to 35 mL/hr goal rate. TF rate will provide 1612 kcals, 83g Pro (including Pro-Stat), and 626 mL free H2O per 24 hrs. TF rate will meet ~ 79% estimated energy needs and 75% estimated protein needs 3) Initiate vitamin C @ 500 mg bid and zinc sulfate @ 220 mg qd for 7-10 days. 4) Consider Nephro-[place] @ 1 tb qd 5) Follow-up with nephrology, cardiology, pulmonology, and social worker clinical 6) Continue to monitor I&O, labs, and skin integrity Expected Outcomes/Goals: 1) labs to improve 2) wound to improve 3) diet to advance 4) f/u in 2-3 days LUIZ RIDLEY MD October 11, 2024 15:06
--- NOTE | 2024-10-11 15:20 | DVHPN2 ---
Progress Note - Dictate Date Seen: October 11, 2024 Has the PT tested + for MRSA If YES, has PT been informed?: No Medical Necessity Reason Pt with a Central, PICC or Fol: Yes The following are medically ne: Central Line, Venegas Catheter Reason for venegas catheter: Strict I&O Subjective Patient was seen and evaluated in follow up in the ICU. Patient is intubated on ventilator. FiO2 30%. Patient is responsive to painful stimuli. BUN 46, SHOPPING INVESTIGATOR 4.34. Chest x-ray shows cardiomegaly. vital signs Vital Sign Date Time Temp Pulse Resp B/P (MAP) Pulse Ox O2 Delivery O2 Flow Rate FiO2 10/11/24 10:30 99.0 70 16 124/70 (88) 100 210.2 10/11/24 10:21 Mechanical Ventilator+ 30 30 Total Intake and Output 10/10/24 10/10/24 10/11/24 15:00 23:00 07:00 Intake Total 50 ml 290 ml Output Total 250 ml 100 ml Balance -200 ml 190 ml medications Current Medications Medications Dose Ordered Sig/Conner Route Start Time Stop Time Status Last Admin Dose Admin Aspirin 81 mg DAILY PO 10/01/24 10:00 10/11/24 09:12 81 MG Gabapentin 300 mg HS PO 09/30/24 22:00 10/10/24 21:46 300 MG Carvedilol 6.25 mg BID PO 09/30/24 22:00 Hold 09/30/24 17:32 6.25 MG Morphine Sulfate 2 mg Q30MP PRN IV 09/30/24 15:45 Ondansetron HCl 4 mg Q4HP PRN IV 09/30/24 15:45 Nitroglycerin 0.4 mg Q5MINP PRN SL 09/30/24 15:45 Midazolam HCl 50 ml @ 1 mls/hr Q24H IV 09/30/24 19:15 10/06/24 09:13 2 MLS/HR Vasopressin 20 units/Sodium Chloride 100 ml @ 9 mls/hr Q11H7M IV 09/30/24 19:45 Norepinephrine Bitartrate 250 ml @ 3.75 mls/hr Q24H IV 09/30/24 20:00 10/06/24 16:29 3.75 MLS/HR Pantoprazole Sodium 40 mg DAILY IV 10/01/24 10:00 10/11/24 09:12 40 MG Acetaminophen 650 mg Q6HP PRN NG 10/01/24 02:00 10/01/24 15:00 650 MG Furosemide 80 mg BIDD IV 10/02/24 07:30 10/11/24 05:39 80 MG Enteral Nutritional Formula 1,000 ml 30ML/HR GT 10/03/24 10:00 10/11/24 03:39 1,000 ML Docusate Sodium 100 mg DAILY GT 10/05/24 10:00 10/11/24 09:12 100 MG Diagnostic Test (Pha) 1 strip Q6HR 10/04/24 12:00 10/11/24 11:34 1 STRIP Insulin Human Regular Q6HR SC 10/04/24 12:00 10/11/24 11:34 2 UNITS Dextrose 50 ml UD PRN IV 10/04/24 12:00 Propofol 100 ml @ 2.697 mls/ hr Q24H IV 10/08/24 16:45 Fentanyl Citrate 250 ml @ 2.5 mls/hr Q24H IV 10/08/24 16:45 Polyethylene Glycol 17 gm DAILY PO 10/11/24 10:00 10/11/24 09:12 17 GM Sennosides 8.6 mg HS PO 10/10/24 22:00 10/10/24 21:46 8.6 MG objective GENERAL: Ill appearing, intubated on ventilator. EYES: PERRL, EOMI. Anicteric. HENT: Moist mucous membranes. LUNGS: Transmitted breath sounds bilaterally. Decreased air entry bilaterally. CARDIOVASCULAR: Irregular rate and rhythm. ABDOMEN: Soft, non-tender and non-distended. EXTREMITIES: No edema. SKIN: Warm, dry. laboratory and microbiology Laboratory Tests 10/11/24 03:26 Test 10/11/24 03:26 Range/Units Serum Glucose 108 H 74-106 mg/dL Problem List Chest pain. NSTEMI. Atrial Fibrillation with RVR. CIARAN. Community acquired pneumonia. Acute on chronic systolic heart failure EF 10%. DM2 with hyperglycemia. Constipation. Anxiety. Acute respiratory failure. Assessment/Plan Continued all current supportive medical care. Echocardiogram. Aspirin, Lipitor. IV antibiotics as ordered. DVT prophylactics. Morphine for pain management. Vasopressors for hemodynamic support. Additional plan as per the hospital course. Critical care time of 45 minutes provided to include time spent evaluation of patient at bedside, when appropriate patient/family education for diagnosis, treatment plan, review of pertinent medical information and discussion of care with specialty providers and PCP. Mechanical ventilator parameters, treatment and adjustments have personally been reviewed by me and treatment plan by casting chipper has also been reviewed. Dietary Evaluation Review Comments: 1) Initiate Pro-Stat @ 30 mL qd. Flush 30 mL H2O AC/PC. 2) Increase TF to 35 mL/hr goal rate. TF rate will provide 1612 kcals, 83g Pro (including Pro-Stat), and 626 mL free H2O per 24 hrs. TF rate will meet ~ 79% estimated energy needs and 75% estimated protein needs 3) Initiate vitamin C @ 500 mg bid and zinc sulfate @ 220 mg qd for 7-10 days. 4) Consider Nephro-[place] @ 1 tb qd 5) Follow-up with nephrology, cardiology, pulmonology, and social work faculty member 6) Continue to monitor I&O, labs, and skin integrity Expected Outcomes/Goals: 1) labs to improve 2) wound to improve 3) diet to advance 4) f/u in 2-3 days Plan discussed with: Other DESHAUN PETERSON MD October 11, 2024 11:43
[2024-10-12] VITALS (111 sets, daily range): BP systolic 99–132; BP diastolic 60–77; PULSE 61–84; RESP 11–24; TEMP 97.5–99.3; O2SAT 99–100
[2024-10-12 03:40] LABS: Basophils # (auto) 0.1 10 ^3/uL (0-0.2); Basophils % (auto) 1.2 % (0.0-2.0); Eosinophils # (auto) 0.5 10 ^3/uL (0-0.8); Eosinophils % (auto) 6.4 % (0.0-7.0); Hematocrit 46.9 % (41.0-53.0); Lymphocytes % (auto) 12.6 % (10.0-50.0); Mean Corpuscular Hemoglobin 33.2 pg (28.0-32.0); Mean Corpuscular Hgb Conc. 34.1 g/dL (32.0-36.0); Mean Corpuscular Volume 97.1 fL (80.0-100.0); Monocytes # (auto) 1.3 10 ^3/uL (0-1.3); Monocytes % (auto) 16.3 % (0.0-12.0); Neutrophils # (auto) 5.2 10 ^3/uL (1.6-8.6); Neutrophils % (auto) 63.5 % (37.0-80.0); Nucleated Red Blood Cells % 0.1 %; Platelet Count (auto) 106 10^3/uL (140-450); Red Blood Cells 4.83 10^6/uL (4.5-5.90); Red Cell Distribution Width 15.5 % (11.8-14.3); White Blood Cell 8.1 10^3/uL (4.4-10.8)
[2024-10-12 03:43] LABS: Chloride 99 mmol/L (98-107); Potassium 3.7 mmol/L (3.5-5.1); Sodium 139 mmol/L (136-145)
[2024-10-12 03:44] LABS: Anion Gap 12 (5-15); Carbon Dioxide 28 mmol/L (20-31)
[2024-10-12 03:50] LABS: BUN/Creatinine Ratio 12.6 (10.0-20.0); Blood Urea Nitrogen 76 mg/dL (9-23); Calcium 10.5 mg/dL (8.7-10.4); Glucose 114 mg/dL (74-106)
[2024-10-12 03:51] LABS: Magnesium 2.8 mg/dL (1.6-2.6)
[2024-10-12 03:52] LABS: Phosphorus 7.4 mg/dL (2.4-5.1)
--- NOTE | 2024-10-12 05:25 | DVH ---
CHEST RADIOGRAPH Indication: intubated Technique: Single frontal view of the chest was obtained COMPARISON: XY CHEST XRAY 1 VIEW on DOS: 10/11/24, XY CHEST PORTABLE on DOS: 10/10/24, XY CHEST PORTABLE on DOS: 10/09/24, XY CHEST XRAY 1 VIEW on DOS: 10/08/24, XY CHEST PORTABLE on DOS: 10/07/24 FINDINGS: Lines and Tubes: Unchanged. Lungs: Clear Pleura: No effusion. No pneumothorax. Cardiomediastinal contours: Cardiomegaly. Bones: Unremarkable IMPRESSION: 1. No acute disease. 2. Cardiomegaly. 3. Lines and tubes unchanged.
[2024-10-12 08:07] LABS: Base Excess 1.3 mmol/L (-2.0-3.0)
--- NOTE | 2024-10-12 12:06 | DVHPN2 ---
Reviewed: Care Plan, H&P, Labs, Medications, Previous Orders, Radiology, Other (Consultations) Changes from previous H/P or p: No Changes General: Per HPI Objective Vitals Vital Signs Date Time Temp Pulse Resp B/P (MAP) Pulse Ox O2 Delivery O2 Flow Rate FiO2 10/12/24 11:30 97.7 70 20 121/74 (90) 100 97.7 10/12/24 10:15 30 10/12/24 10:00 Mechanical Ventilator+ Intake/Output Intake and Output 10/12/24 07:00 Intake Total 404 ml Output Total 650 ml Balance -246 ml Intake Oral 60 ml Tube Feeding 344 ml Output Urine Total 650 ml General Appearance: Other (Intubated and sedated) HEENT: Atraumatic Lungs: Other (Mechanical ventilation sounds) Cardiovascular: Normal S1, Normal S2, Other (Irregularly irregular) Abdomen: Soft Genitourinary: Other (Inman's catheter) Musculoskeletal: Other (Motor removed) Extremities: Other (Dusky lower extremities) Neuro: Other (Intubated and sedated) Psych/Mental Status: Other (Intubated and sedated) Medications Current Medications Medications Dose Ordered Sig/Conner Route Start Time Stop Time Status Last Admin Dose Admin Aspirin 81 mg DAILY PO 10/01/24 10:00 10/12/24 09:29 81 MG Gabapentin 300 mg HS PO 09/30/24 22:00 10/11/24 21:32 300 MG Carvedilol 6.25 mg BID PO 09/30/24 22:00 Hold 09/30/24 17:32 6.25 MG Morphine Sulfate 2 mg Q30MP PRN IV 09/30/24 15:45 Ondansetron HCl 4 mg Q4HP PRN IV 09/30/24 15:45 Nitroglycerin 0.4 mg Q5MINP PRN SL 09/30/24 15:45 Midazolam HCl 50 ml @ 1 mls/hr Q24H IV 09/30/24 19:15 10/06/24 09:13 2 MLS/HR Vasopressin 20 units/Sodium Chloride 100 ml @ 9 mls/hr Q11H7M IV 09/30/24 19:45 Norepinephrine Bitartrate 250 ml @ 3.75 mls/hr Q24H IV 09/30/24 20:00 10/06/24 16:29 3.75 MLS/HR Pantoprazole Sodium 40 mg DAILY IV 10/01/24 10:00 10/12/24 09:29 40 MG Acetaminophen 650 mg Q6HP PRN NG 10/01/24 02:00 10/01/24 15:00 650 MG Furosemide 80 mg BIDD IV 10/02/24 07:30 10/12/24 05:34 80 MG Enteral Nutritional Formula 1,000 ml 30ML/HR GT 10/03/24 10:00 10/11/24 03:39 1,000 ML Docusate Sodium 100 mg DAILY GT 10/05/24 10:00 10/12/24 09:29 100 MG Diagnostic Test (Pha) 1 strip Q6HR 10/04/24 12:00 10/12/24 05:34 1 STRIP Insulin Human Regular Q6HR SC 10/04/24 12:00 10/12/24 05:33 2 UNITS Dextrose 50 ml UD PRN IV 10/04/24 12:00 Propofol 100 ml @ 2.697 mls/ hr Q24H IV 10/08/24 16:45 Fentanyl Citrate 250 ml @ 2.5 mls/hr Q24H IV 10/08/24 16:45 Polyethylene Glycol 17 gm DAILY PO 10/11/24 10:00 10/12/24 09:29 17 GM Sennosides 8.6 mg HS PO 10/10/24 22:00 10/11/24 21:32 8.6 MG Laboratory Results Laboratory Tests 10/12/24 03:00 Chemistry Test 10/12/24 03:00 Calcium Level 10.5 mg/dL (8.7-10.4) H Magnesium Level 2.8 mg/dL (1.6-2.6) H Phosphorus Level 7.4 mg/dL (2.4-5.1) H Urinalysis Test 10/01/24 00:36 Urine Creatinine 241.60 mg/dL (30.0-125.0) H Urine Sodium 35 mmol/L (40-220) L Blood Gas Results Test 10/12/24 07:46 Arterial Blood pH 7.407 (7.350-7.450) FiO2 % 30.0 Microbiology Microbiology Date/Time Source Procedure Growth Status 10/05/24 19:49 Blood Blood Culture - Final NO GROWTH AFTER 5 DAYS OF INCUBATION. Complete 10/03/24 15:40 Nose MRSA Screen - Final Complete 10/01/24 00:36 Urine - [place] Urine Culture - Final Complete Assessment/Plan Assessment/Plan Acute metabolic/toxic encephalopathy Acute hypoxic respiratory failure due to multi-organism pneumonia Septic shock due to multi-organism pneumonia Leukocytosis due to septic shock Thrombocytopenia due to septic shock ATN on HD Electrolytes imbalance in the setting of CIARAN in septic shock Acute on chronic systolic heart failure HFrEF 10% Atrial fibrillation with RVR type 2 CA demand ischemia Uncontrolled diabetes mellitus type 2 with hyperglycemia Polysubstance (alcohol, marijuana, methamphetamine, and tobacco) use disorder sedation vacation CPAP c/w mechanical vent c/w pressors maintain MAP >65 c/w insulin maintain FS 150-200 empiric abx done dialysis per renal 10/11/2024: remains on ventilator off sedation for days 10/12/2024: pt is more awake but still not able to follow commands remains intubated for now may need tracheostomy diet TF hold for CPAP dvt ppx lovenox gi ppx protonix full code condition critical prognosis poor >45 mins critical care time spent Plan discussed with: Other My Orders Orders - YESENIA KEATING DO Procedure Category Date Status Time Abg W/ Co-Ox RT 10/12/24 Logged 04:00 Chest Xray 1 View XY 10/12/24 Resulted 04:00 Date of Service: October 12, 2024 Billing Provider: YESENIA KEATING DO Common Visit Codes: [id number] INP/OBS CARE(HIGH) YESENIA KEATING DO October 12, 2024 12:06
--- NOTE | 2024-10-12 12:36 | DVHPN2 ---
Progress Note - Dictate Date Seen: October 12, 2024 Has the PT tested + for MRSA If YES, has PT been informed?: No Medical Necessity Reason Pt with a Central, PICC or Fol: Yes The following are medically ne: Central Line, Venegas Catheter Reason for venegas catheter: Strict I&O vital signs Vital Sign Date Time Temp Pulse Resp B/P (MAP) Pulse Ox O2 Delivery O2 Flow Rate FiO2 10/12/24 12:07 30 10/12/24 12:07 17 100 Mechanical Ventilator+ 10/12/24 11:59 73 125/74 (91) 10/12/24 11:30 97.7 97.7 Total Intake and Output 10/11/24 10/11/24 10/12/24 15:00 23:00 07:00 Intake Total 244 ml 160 ml Output Total 200 ml 450 ml Balance 44 ml -290 ml medications Current Medications Medications Dose Ordered Sig/Conner Route Start Time Stop Time Status Last Admin Dose Admin Aspirin 81 mg DAILY PO 10/01/24 10:00 10/12/24 09:29 81 MG Gabapentin 300 mg HS PO 09/30/24 22:00 10/11/24 21:32 300 MG Carvedilol 6.25 mg BID PO 09/30/24 22:00 Hold 09/30/24 17:32 6.25 MG Morphine Sulfate 2 mg Q30MP PRN IV 09/30/24 15:45 Ondansetron HCl 4 mg Q4HP PRN IV 09/30/24 15:45 Nitroglycerin 0.4 mg Q5MINP PRN SL 09/30/24 15:45 Midazolam HCl 50 ml @ 1 mls/hr Q24H IV 09/30/24 19:15 10/06/24 09:13 2 MLS/HR Vasopressin 20 units/Sodium Chloride 100 ml @ 9 mls/hr Q11H7M IV 09/30/24 19:45 Norepinephrine Bitartrate 250 ml @ 3.75 mls/hr Q24H IV 09/30/24 20:00 10/06/24 16:29 3.75 MLS/HR Pantoprazole Sodium 40 mg DAILY IV 10/01/24 10:00 10/12/24 09:29 40 MG Acetaminophen 650 mg Q6HP PRN NG 10/01/24 02:00 10/01/24 15:00 650 MG Furosemide 80 mg BIDD IV 10/02/24 07:30 10/12/24 05:34 80 MG Enteral Nutritional Formula 1,000 ml 30ML/HR GT 10/03/24 10:00 10/12/24 12:29 1,000 ML Docusate Sodium 100 mg DAILY GT 10/05/24 10:00 10/12/24 09:29 100 MG Diagnostic Test (Pha) 1 strip Q6HR 10/04/24 12:00 10/12/24 12:27 1 STRIP Insulin Human Regular Q6HR SC 10/04/24 12:00 10/12/24 12:27 2 UNITS Dextrose 50 ml UD PRN IV 10/04/24 12:00 Propofol 100 ml @ 2.697 mls/ hr Q24H IV 10/08/24 16:45 Fentanyl Citrate 250 ml @ 2.5 mls/hr Q24H IV 10/08/24 16:45 Polyethylene Glycol 17 gm DAILY PO 10/11/24 10:00 10/12/24 09:29 17 GM Sennosides 8.6 mg HS PO 10/10/24 22:00 10/11/24 21:32 8.6 MG laboratory and microbiology Laboratory Tests 10/12/24 03:00 Test 10/12/24 03:00 Range/Units Serum Glucose 114 H 74-106 mg/dL Assessment/Plan Covering for Dr. Rizvi Impression Acute hypoxemic respiratory failure Elevated troponin NSTEMI CIARAN started on HD cardiomyopathy EF 10% substance abuse pos've for amphetamines on admission Patient seen and examined in ICU Events On mechanical ventilation S/p intubation PEEP 5, FiO2 30% Off sedation for for more than 48 hours Patient still not waking up Labs and imaging reviewed CT of the brain negative for acute abnormalities Management Vent support Titrate to maintain sats 90% or above continue HD per nephrology When patient is more awake, proceed to weaning trial Pressure support 12/13, extubate when ready ok to use precedex DC antibiotics Bronchodilators Monitor renal function Monitor electrolytes Supplement as needed Pressors as needed for hemodynamic support To maintain a mean arterial pressure of 65 mmHg F/u cardiology Prognosis poor Recommend trache vs comfort measures DVT prophylaxis Critical care time 35 minutes Dietary Evaluation Review Comments: 1) Initiate Pro-Stat @ 30 mL qd. Flush 30 mL H2O AC/PC. 2) Increase TF to 35 mL/hr goal rate. TF rate will provide 1612 kcals, 83g Pro (including Pro-Stat), and 626 mL free H2O per 24 hrs. TF rate will meet ~ 79% estimated energy needs and 75% estimated protein needs 3) Initiate vitamin C @ 500 mg bid and zinc sulfate @ 220 mg qd for 7-10 days. 4) Consider Nephro-[place] @ 1 tb qd 5) Follow-up with nephrology, cardiology, pulmonology, and case management social worker 6) Continue to monitor I&O, labs, and skin integrity Expected Outcomes/Goals: 1) labs to improve 2) wound to improve 3) diet to advance 4) f/u in 2-3 days Plan discussed with: Other (Rn) ISHMAEL MARROQUIN MD October 12, 2024 12:36
--- NOTE | 2024-10-12 13:58 | DVHPN2 ---
Progress Note - Dictate Date Seen: October 12, 2024 Has the PT tested + for MRSA If YES, has PT been informed?: No Medical Necessity Reason Pt with a Central, PICC or Fol: Yes The following are medically ne: Central Line, Venegas Catheter Reason for venegas catheter: Strict I&O vital signs Vital Sign Date Time Temp Pulse Resp B/P (MAP) Pulse Ox O2 Delivery O2 Flow Rate FiO2 10/12/24 10:15 69 21 111/67 (82) 100 30 10/12/24 07:15 98.6 209.5 10/12/24 06:00 Mechanical Ventilator+ Total Intake and Output 10/11/24 10/11/24 10/12/24 15:00 23:00 07:00 Intake Total 244 ml 160 ml Output Total 200 ml 450 ml Balance 44 ml -290 ml medications Current Medications Medications Dose Ordered Sig/Conner Route Start Time Stop Time Status Last Admin Dose Admin Aspirin 81 mg DAILY PO 10/01/24 10:00 10/12/24 09:29 81 MG Gabapentin 300 mg HS PO 09/30/24 22:00 10/11/24 21:32 300 MG Carvedilol 6.25 mg BID PO 09/30/24 22:00 Hold 09/30/24 17:32 6.25 MG Morphine Sulfate 2 mg Q30MP PRN IV 09/30/24 15:45 Ondansetron HCl 4 mg Q4HP PRN IV 09/30/24 15:45 Nitroglycerin 0.4 mg Q5MINP PRN SL 09/30/24 15:45 Midazolam HCl 50 ml @ 1 mls/hr Q24H IV 09/30/24 19:15 10/06/24 09:13 2 MLS/HR Vasopressin 20 units/Sodium Chloride 100 ml @ 9 mls/hr Q11H7M IV 09/30/24 19:45 Norepinephrine Bitartrate 250 ml @ 3.75 mls/hr Q24H IV 09/30/24 20:00 10/06/24 16:29 3.75 MLS/HR Pantoprazole Sodium 40 mg DAILY IV 10/01/24 10:00 10/12/24 09:29 40 MG Acetaminophen 650 mg Q6HP PRN NG 10/01/24 02:00 10/01/24 15:00 650 MG Furosemide 80 mg BIDD IV 10/02/24 07:30 10/12/24 05:34 80 MG Enteral Nutritional Formula 1,000 ml 30ML/HR GT 10/03/24 10:00 10/11/24 03:39 1,000 ML Docusate Sodium 100 mg DAILY GT 10/05/24 10:00 10/12/24 09:29 100 MG Diagnostic Test (Pha) 1 strip Q6HR 10/04/24 12:00 10/12/24 05:34 1 STRIP Insulin Human Regular Q6HR SC 10/04/24 12:00 10/12/24 05:33 2 UNITS Dextrose 50 ml UD PRN IV 10/04/24 12:00 Propofol 100 ml @ 2.697 mls/ hr Q24H IV 10/08/24 16:45 Fentanyl Citrate 250 ml @ 2.5 mls/hr Q24H IV 10/08/24 16:45 Polyethylene Glycol 17 gm DAILY PO 10/11/24 10:00 10/12/24 09:29 17 GM Sennosides 8.6 mg HS PO 10/10/24 22:00 10/11/24 21:32 8.6 MG laboratory and microbiology Laboratory Tests 10/12/24 03:00 Test 10/12/24 03:00 Range/Units Serum Glucose 114 H 74-106 mg/dL Assessment/Plan Covering for Dr. Rizvi Impression Acute hypoxemic respiratory failure Elevated troponin NSTEMI CIARAN started on HD cardiomyopathy EF 10% substance abuse pos've for amphetamines on admission Patient seen and examined in ICU Events On mechanical ventilation S/p intubation PEEP 5, FiO2 30% Off sedation for several days Patient still not awake enough Labs and imaging reviewed CT of the brain negative for acute abnormalities Management Vent support Titrate to maintain sats 90% or above continue HD per nephrology When patient is more awake, proceed to weaning trial Pressure support 12/13, extubate when ready ok to use precedex DC antibiotics Bronchodilators Monitor renal function Monitor electrolytes Supplement as needed Pressors as needed for hemodynamic support To maintain a mean arterial pressure of 65 mmHg F/u cardiology Prognosis poor Recommend trache vs comfort measures DVT prophylaxis Critical care time 35 minutes Dietary Evaluation Review Comments: 1) Initiate Pro-Stat @ 30 mL qd. Flush 30 mL H2O AC/PC. 2) Increase TF to 35 mL/hr goal rate. TF rate will provide 1612 kcals, 83g Pro (including Pro-Stat), and 626 mL free H2O per 24 hrs. TF rate will meet ~ 79% estimated energy needs and 75% estimated protein needs 3) Initiate vitamin C @ 500 mg bid and zinc sulfate @ 220 mg qd for 7-10 days. 4) Consider Nephro-[place] @ 1 tb qd 5) Follow-up with nephrology, cardiology, pulmonology, and social group worker 6) Continue to monitor I&O, labs, and skin integrity Expected Outcomes/Goals: 1) labs to improve 2) wound to improve 3) diet to advance 4) f/u in 2-3 days Plan discussed with: Other (Rn) ISHMAEL MARROQUIN MD October 12, 2024 13:58
--- NOTE | 2024-10-12 14:11 | DVHPN2 ---
Progress Note Date Seen: October 12, 2024 Has the PT tested + for MRSA If YES, has PT been informed?: No Medical Necessity Reason Pt with a Central, PICC or Fol: Yes The following are medically ne: Central Line, Venegas Catheter Reason for venegas catheter: Strict I&O Subjective Patient reports: Other Review of Systems: Deferred Objective vital signs Vital Sign Date Time Temp Pulse Resp B/P (MAP) Pulse Ox O2 Delivery O2 Flow Rate FiO2 10/12/24 12:07 30 10/12/24 12:07 17 100 Mechanical Ventilator+ 10/12/24 11:59 73 125/74 (91) 10/12/24 11:30 97.7 97.7 Total Intake and Output 10/11/24 10/11/24 10/12/24 15:00 23:00 07:00 Intake Total 244 ml 160 ml Output Total 200 ml 450 ml Balance 44 ml -290 ml medications Current Medications Medications Dose Ordered Sig/Conner Route Start Time Stop Time Status Last Admin Dose Admin Aspirin 81 mg DAILY PO 10/01/24 10:00 10/12/24 09:29 81 MG Gabapentin 300 mg HS PO 09/30/24 22:00 10/11/24 21:32 300 MG Carvedilol 6.25 mg BID PO 09/30/24 22:00 Hold 09/30/24 17:32 6.25 MG Ondansetron HCl 4 mg Q4HP PRN IV 09/30/24 15:45 Nitroglycerin 0.4 mg Q5MINP PRN SL 09/30/24 15:45 Midazolam HCl 50 ml @ 1 mls/hr Q24H IV 09/30/24 19:15 10/06/24 09:13 2 MLS/HR Vasopressin 20 units/Sodium Chloride 100 ml @ 9 mls/hr Q11H7M IV 09/30/24 19:45 Norepinephrine Bitartrate 250 ml @ 3.75 mls/hr Q24H IV 09/30/24 20:00 10/06/24 16:29 3.75 MLS/HR Pantoprazole Sodium 40 mg DAILY IV 10/01/24 10:00 10/12/24 09:29 40 MG Acetaminophen 650 mg Q6HP PRN NG 10/01/24 02:00 10/01/24 15:00 650 MG Furosemide 80 mg BIDD IV 10/02/24 07:30 10/12/24 05:34 80 MG Enteral Nutritional Formula 1,000 ml 30ML/HR GT 10/03/24 10:00 10/12/24 12:29 1,000 ML Docusate Sodium 100 mg DAILY GT 10/05/24 10:00 10/12/24 09:29 100 MG Diagnostic Test (Pha) 1 strip Q6HR 10/04/24 12:00 10/12/24 12:27 1 STRIP Insulin Human Regular Q6HR SC 10/04/24 12:00 10/12/24 12:27 2 UNITS Dextrose 50 ml UD PRN IV 10/04/24 12:00 Propofol 100 ml @ 2.697 mls/ hr Q24H IV 10/08/24 16:45 Fentanyl Citrate 250 ml @ 2.5 mls/hr Q24H IV 10/08/24 16:45 Polyethylene Glycol 17 gm DAILY PO 10/11/24 10:00 10/12/24 09:29 17 GM Sennosides 8.6 mg HS PO 10/10/24 22:00 10/11/24 21:32 8.6 MG laboratory and microbiology Laboratory Tests 10/12/24 03:00 Test 10/12/24 03:00 Range/Units Serum Glucose 114 H 74-106 mg/dL Microbiology Date/Time Source Procedure Growth Status 10/05/24 19:49 Blood Blood Culture - Final NO GROWTH AFTER 5 DAYS OF INCUBATION. Complete 10/03/24 15:40 Nose MRSA Screen - Final Complete 10/01/24 00:36 Urine - [place] Urine Culture - Final Complete Problem List/Assessment/Plan Problem List/Assessment/Plan Acute kidney injury likely possibly ATN in the setting of shock Shock Chronic kidney disease stage 3a Acute respiratory failure Methamphetamine intoxication Sepsis Hypokalemia Hypoglycemia Recommendations next HD sunday opens eyes not following commands Plan discussed with: Other Dietary Evaluation Review Comments: 1) Initiate Pro-Stat @ 30 mL qd. Flush 30 mL H2O AC/PC. 2) Increase TF to 35 mL/hr goal rate. TF rate will provide 1612 kcals, 83g Pro (including Pro-Stat), and 626 mL free H2O per 24 hrs. TF rate will meet ~ 79% estimated energy needs and 75% estimated protein needs 3) Initiate vitamin C @ 500 mg bid and zinc sulfate @ 220 mg qd for 7-10 days. 4) Consider Nephro-[place] @ 1 tb qd 5) Follow-up with nephrology, cardiology, pulmonology, and social work administrator 6) Continue to monitor I&O, labs, and skin integrity Expected Outcomes/Goals: 1) labs to improve 2) wound to improve 3) diet to advance 4) f/u in 2-3 days LUIZ RIDLEY MD October 12, 2024 14:11
--- NOTE | 2024-10-12 21:40 | DVHPN2 ---
Progress Note - Dictate Date Seen: October 12, 2024 Has the PT tested + for MRSA If YES, has PT been informed?: No Medical Necessity Reason Pt with a Central, PICC or Fol: Yes The following are medically ne: Central Line, Venegas Catheter Reason for venegas catheter: Strict I&O Subjective Patient was seen and evaluated in follow up in the ICU. Patient is intubated on ventilator. FiO2 30%. Patient on pressors as needed for hemodynamic support. Patient receiving tube feeds. 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 Chest x-ray shows cardiomegaly. vital signs Vital Sign Date Time Temp Pulse Resp B/P (MAP) Pulse Ox O2 Delivery O2 Flow Rate FiO2 10/12/24 12:07 30 10/12/24 12:07 17 100 Mechanical Ventilator+ 10/12/24 11:59 73 125/74 (91) 10/12/24 11:30 97.7 97.7 Total Intake and Output 10/11/24 10/11/24 10/12/24 15:00 23:00 07:00 Intake Total 244 ml 160 ml Output Total 200 ml 450 ml Balance 44 ml -290 ml medications Current Medications Medications Dose Ordered Sig/Conner Route Start Time Stop Time Status Last Admin Dose Admin Aspirin 81 mg DAILY PO 10/01/24 10:00 10/12/24 09:29 81 MG Gabapentin 300 mg HS PO 09/30/24 22:00 10/11/24 21:32 300 MG Carvedilol 6.25 mg BID PO 09/30/24 22:00 Hold 09/30/24 17:32 6.25 MG Ondansetron HCl 4 mg Q4HP PRN IV 09/30/24 15:45 Nitroglycerin 0.4 mg Q5MINP PRN SL 09/30/24 15:45 Midazolam HCl 50 ml @ 1 mls/hr Q24H IV 09/30/24 19:15 10/06/24 09:13 2 MLS/HR Vasopressin 20 units/Sodium Chloride 100 ml @ 9 mls/hr Q11H7M IV 09/30/24 19:45 Norepinephrine Bitartrate 250 ml @ 3.75 mls/hr Q24H IV 09/30/24 20:00 10/06/24 16:29 3.75 MLS/HR Pantoprazole Sodium 40 mg DAILY IV 10/01/24 10:00 10/12/24 09:29 40 MG Acetaminophen 650 mg Q6HP PRN NG 10/01/24 02:00 10/01/24 15:00 650 MG Furosemide 80 mg BIDD IV 10/02/24 07:30 10/12/24 05:34 80 MG Enteral Nutritional Formula 1,000 ml 30ML/HR GT 10/03/24 10:00 10/12/24 12:29 1,000 ML Docusate Sodium 100 mg DAILY GT 10/05/24 10:00 10/12/24 09:29 100 MG Diagnostic Test (Pha) 1 strip Q6HR 10/04/24 12:00 10/12/24 12:27 1 STRIP Insulin Human Regular Q6HR SC 10/04/24 12:00 10/12/24 12:27 2 UNITS Dextrose 50 ml UD PRN IV 10/04/24 12:00 Propofol 100 ml @ 2.697 mls/ hr Q24H IV 10/08/24 16:45 Fentanyl Citrate 250 ml @ 2.5 mls/hr Q24H IV 10/08/24 16:45 Polyethylene Glycol 17 gm DAILY PO 10/11/24 10:00 10/12/24 09:29 17 GM Sennosides 8.6 mg HS PO 10/10/24 22:00 10/11/24 21:32 8.6 MG objective GENERAL: Ill appearing, intubated on ventilator. EYES: PERRL, EOMI. Anicteric. HENT: Moist mucous membranes. LUNGS: Transmitted breath sounds bilaterally. Decreased air entry bilaterally. CARDIOVASCULAR: Irregular rate and rhythm. ABDOMEN: Soft, non-tender and non-distended. EXTREMITIES: No edema. SKIN: Warm, dry. laboratory and microbiology Laboratory Tests 10/12/24 03:00 Test 10/12/24 03:00 Range/Units Serum Glucose 114 H 74-106 mg/dL Problem List Chest pain. NSTEMI. Atrial Fibrillation with RVR. CIARAN. Community acquired pneumonia. Acute on chronic systolic heart failure EF 10%. DM2 with hyperglycemia. Constipation. Anxiety. Acute respiratory failure. Assessment/Plan Continued all current supportive medical care. Aspirin. Diuretics with Lasix. Vasopressors for hemodynamic support. IV antibiotics as ordered. GI prophylactics. Additional plan as per the hospital course. Critical care time of 45 minutes provided to include time spent evaluation of patient at bedside, when appropriate patient/family education for diagnosis, treatment plan, review of pertinent medical information and discussion of care with specialty providers and PCP. Mechanical ventilator parameters, treatment and adjustments have personally been reviewed by me and treatment plan by comptroller has also been reviewed. Dietary Evaluation Review Comments: 1) Initiate Pro-Stat @ 30 mL qd. Flush 30 mL H2O AC/PC. 2) Increase TF to 35 mL/hr goal rate. TF rate will provide 1612 kcals, 83g Pro (including Pro-Stat), and 626 mL free H2O per 24 hrs. TF rate will meet ~ 79% estimated energy needs and 75% estimated protein needs 3) Initiate vitamin C @ 500 mg bid and zinc sulfate @ 220 mg qd for 7-10 days. 4) Consider Nephro-[place] @ 1 tb qd 5) Follow-up with nephrology, cardiology, pulmonology, and social services technician 6) Continue to monitor I&O, labs, and skin integrity Expected Outcomes/Goals: 1) labs to improve 2) wound to improve 3) diet to advance 4) f/u in 2-3 days Plan discussed with: DESHAUN Jackson MD October 12, 2024 13:08
[2024-10-13] VITALS (74 sets, daily range): BP systolic 103–135; BP diastolic 60–77; PULSE 55–82; RESP 13–28; TEMP 98–99.8; O2SAT 95–100
[2024-10-13 03:57] LABS: Basophils # (auto) 0.1 10 ^3/uL (0-0.2); Basophils % (auto) 1.1 % (0.0-2.0); Eosinophils # (auto) 0.5 10 ^3/uL (0-0.8); Eosinophils % (auto) 5.8 % (0.0-7.0); Hematocrit 48.2 % (41.0-53.0); Hemoglobin 16.3 g/dL (13.5-17.5); Lymphocytes % (auto) 11.2 % (10.0-50.0); Mean Corpuscular Hemoglobin 32.9 pg (28.0-32.0); Mean Corpuscular Hgb Conc. 33.9 g/dL (32.0-36.0); Mean Corpuscular Volume 97.1 fL (80.0-100.0); Monocytes # (auto) 1.3 10 ^3/uL (0-1.3); Monocytes % (auto) 14.6 % (0.0-12.0); Neutrophils # (auto) 5.9 10 ^3/uL (1.6-8.6); Neutrophils % (auto) 67.3 % (37.0-80.0); Nucleated Red Blood Cells % 0.1 %; Platelet Count (auto) 130 10^3/uL (140-450); Red Blood Cells 4.96 10^6/uL (4.5-5.90); Red Cell Distribution Width 15.5 % (11.8-14.3); White Blood Cell 8.8 10^3/uL (4.4-10.8)
[2024-10-13 04:05] LABS: Sodium 140 mmol/L (136-145)
[2024-10-13 04:06] LABS: Anion Gap 14 (5-15); Carbon Dioxide 28 mmol/L (20-31); Chloride 98 mmol/L (98-107); Potassium 3.2 mmol/L (3.5-5.1)
[2024-10-13 04:08] LABS: Calcium 10.8 mg/dL (8.7-10.4)
[2024-10-13 04:11] LABS: BUN/Creatinine Ratio 14.9 (10.0-20.0)
[2024-10-13 04:12] LABS: Glucose 107 mg/dL (74-106); Magnesium 2.9 mg/dL (1.6-2.6)
[2024-10-13 04:13] LABS: Blood Urea Nitrogen 102 mg/dL (9-23)
[2024-10-13 04:14] LABS: Phosphorus 7.8 mg/dL (2.4-5.1)
[2024-10-13] MEDS ORDERED: POTASSIUM CHL 20MEQ/100ML 100 ML IV ONE (05:15)
--- NOTE | 2024-10-13 05:17 | DVH ---
EXAM: XR Chest, 1 View CLINICAL INDICATION: PLEURAL EFFUSION TECHNIQUE: Frontal view of the chest. COMPARISON: XY CHEST PORTABLE on DOS: 10/10/24, XY CHEST PORTABLE on DOS: 10/09/24, XY CHEST PORTABLE o n DOS: 10/07/24, XY CHEST PORTABLE on DOS: 10/04/24, XY CHEST PORTABLE on DOS: 10/03/24 FINDINGS: LUNGS AND PLEURAL SPACES: Trace right pleural effusion. No consolidation. No pneumothorax. HEART: Cardiomegaly without overt failure. MEDIASTINUM: Unremarkable. Normal mediastinal contour. BONES/JOINTS: Unremarkable. No acute fracture. TUBES, LINES AND DEVICES: Stable tubes and lines. OTHER FINDINGS: . . . . IMPRESSION: 1. Cardiomegaly without overt failure. 2. Trace right pleural effusion.
[2024-10-13] MEDS: POTASSIUM CHL 20MEQ/50ML 50 ML IV ONE (05:23)
[2024-10-13 07:45] LABS: Base Excess 1.2 mmol/L (-2.0-3.0)
[2024-10-13] MEDS: ALBUMIN 25% 100 ML IV ONE (09:40)
--- NOTE | 2024-10-13 10:16 | DVHPN2 ---
Subjective Patient was intubated and sedated Reviewed: Care Plan, H&P, Labs, Medications, Previous Orders, Radiology, Other (Consultations) Changes from previous H/P or p: No Changes General: Per HPI Objective Vitals Vital Signs Date Time Temp Pulse Resp B/P (MAP) Pulse Ox O2 Delivery O2 Flow Rate FiO2 10/13/24 09:59 16 100 Mechanical Ventilator+ 30 30 10/13/24 09:31 70 109/68 (82) 10/13/24 07:00 98.3 98.3 Intake/Output Intake and Output 10/13/24 07:00 Intake Total 447 ml Output Total 1500 ml Balance -1053 ml Intake Oral 230 ml Tube Feeding 217 ml Output Urine Total 1500 ml # Bowel Movements 2 General Appearance: Other (Intubated and sedated) HEENT: Atraumatic Lungs: Other (Mechanical ventilation sounds) Cardiovascular: Normal S1, Normal S2, Other (Irregularly irregular) Abdomen: Soft Genitourinary: Other (Inman's catheter) Musculoskeletal: Other (Motor removed) Extremities: Other (Dusky lower extremities) Neuro: Other (Intubated and sedated) Skin: Dry, Intact Psych/Mental Status: Other (Intubated and sedated) Medications Current Medications Medications Dose Ordered Sig/Conner Route Start Time Stop Time Status Last Admin Dose Admin Aspirin 81 mg DAILY PO 10/01/24 10:00 10/12/24 09:29 81 MG Gabapentin 300 mg HS PO 09/30/24 22:00 10/12/24 22:13 300 MG Carvedilol 6.25 mg BID PO 09/30/24 22:00 Hold 09/30/24 17:32 6.25 MG Ondansetron HCl 4 mg Q4HP PRN IV 09/30/24 15:45 Nitroglycerin 0.4 mg Q5MINP PRN SL 09/30/24 15:45 Midazolam HCl 50 ml @ 1 mls/hr Q24H IV 09/30/24 19:15 10/06/24 09:13 2 MLS/HR Vasopressin 20 units/Sodium Chloride 100 ml @ 9 mls/hr Q11H7M IV 09/30/24 19:45 Norepinephrine Bitartrate 250 ml @ 3.75 mls/hr Q24H IV 09/30/24 20:00 10/06/24 16:29 3.75 MLS/HR Pantoprazole Sodium 40 mg DAILY IV 10/01/24 10:00 10/12/24 09:29 40 MG Acetaminophen 650 mg Q6HP PRN NG 10/01/24 02:00 10/01/24 15:00 650 MG Furosemide 80 mg BIDD IV 10/02/24 07:30 10/13/24 05:49 80 MG Enteral Nutritional Formula 1,000 ml 30ML/HR GT 10/03/24 10:00 10/12/24 12:29 1,000 ML Docusate Sodium 100 mg DAILY GT 10/05/24 10:00 10/13/24 08:08 100 MG Diagnostic Test (Pha) 1 strip Q6HR 10/04/24 12:00 10/13/24 05:50 1 STRIP Insulin Human Regular Q6HR SC 10/04/24 12:00 10/13/24 00:05 2 UNITS Dextrose 50 ml UD PRN IV 10/04/24 12:00 Propofol 100 ml @ 2.697 mls/ hr Q24H IV 10/08/24 16:45 Fentanyl Citrate 250 ml @ 2.5 mls/hr Q24H IV 10/08/24 16:45 Polyethylene Glycol 17 gm DAILY PO 10/11/24 10:00 10/13/24 08:08 17 GM Sennosides 8.6 mg HS PO 10/10/24 22:00 10/12/24 22:13 8.6 MG Laboratory Results Laboratory Tests 10/13/24 03:36 Chemistry Test 10/13/24 03:36 Calcium Level 10.8 mg/dL (8.7-10.4) H Magnesium Level 2.9 mg/dL (1.6-2.6) H Phosphorus Level 7.8 mg/dL (2.4-5.1) H Urinalysis Test 10/01/24 00:36 Urine Creatinine 241.60 mg/dL (30.0-125.0) H Urine Sodium 35 mmol/L (40-220) L Blood Gas Results Test 10/13/24 07:29 Arterial Blood pH 7.445 (7.350-7.450) FiO2 % 30.0 Microbiology Microbiology Date/Time Source Procedure Growth Status 10/05/24 19:49 Blood Blood Culture - Final NO GROWTH AFTER 5 DAYS OF INCUBATION. Complete 10/03/24 15:40 Nose MRSA Screen - Final Complete 10/01/24 00:36 Urine - [place] Urine Culture - Final Complete Labs and/or images reviewed: Labs reviewed by me, Image(s) reviewed by me Assessment/Plan Assessment/Plan Impression: -NSTEMI, probably type 2 secondary to amphetamine use -amphetamine use -cardiomyopathy -acute on chronic systolic heart failure with ejection fraction 10% -acute hypoxic respiratory failure -AFib/flutter with RVR -cardiogenic shock -acute kidney injury, vasomotor nephropathy -underlying CKD stage IIIb/four -leukocytosis, probable sirs -hypoglycemia Plan: Events: Patient off sedation. Slow to awaken. Follow some commands. Currently receiving HD. Off vasopressors. -cardiology consultation: Recommendations reviewed -nephrology consultation placed -continue current ventilator settings, per pulmonology recommendations -norepinephrine drip to keep map greater than 65 mmHg -PUD, DVT prophylaxis -change antibiotic therapy to doxycycline and cefepime given acute renal failure -titrate FiO2 to keep saturation greater than 93%. Currently on 30% FiO2 -change tube feeding to Nepro given worsening renal function. -repeat labs, chest x-ray, ABG in a.m. Critical care time spent with patient discussing and formulating plan of care: 40 minutes. This does not include time spent performing procedures. This medical document was created using an electronic medical record system with [employer] dictation system. Although this document has been carefully reviewed, there may still be some phonetic and typographical errors. These areas are purely typographical due to imperfections of the software programs, and do not reflect any compromise in the patient's medical care. Plan discussed with: Patient, Other (RN) Date of Service: October 13, 2024 Billing Provider: MARK LILLY NP Common Visit Codes: [id number] CARE 30-74 MIN MARK LILLY NP October 13, 2024 10:16
[2024-10-13 13:48] LABS: Base Excess 2.8 mmol/L (-2.0-3.0)
--- NOTE | 2024-10-13 16:09 | DVHPN2 ---
Progress Note Date Seen: October 13, 2024 Has the PT tested + for MRSA If YES, has PT been informed?: No Medical Necessity Reason Pt with a Central, PICC or Fol: Yes The following are medically ne: Central Line, Venegas Catheter Reason for venegas catheter: Strict I&O Subjective Patient reports: Other (more awake ,follows commands) Review of Systems: Deferred Objective vital signs Vital Sign Date Time Temp Pulse Resp B/P (MAP) Pulse Ox O2 Delivery O2 Flow Rate FiO2 10/13/24 15:54 71 16 110/68 (82) 100 30 10/13/24 14:00 Mechanical Ventilator+ 10/13/24 11:00 98.0 98.0 Total Intake and Output 10/12/24 10/12/24 10/13/24 14:59 22:59 06:59 Intake Total 233 ml 214 ml Output Total 650 ml 850 ml Balance -417 ml -636 ml medications Current Medications Medications Dose Ordered Sig/Conner Route Start Time Stop Time Status Last Admin Dose Admin Aspirin 81 mg DAILY PO 10/01/24 10:00 10/13/24 11:06 81 MG Gabapentin 300 mg HS PO 09/30/24 22:00 10/12/24 22:13 300 MG Carvedilol 6.25 mg BID PO 09/30/24 22:00 Hold 09/30/24 17:32 6.25 MG Ondansetron HCl 4 mg Q4HP PRN IV 09/30/24 15:45 Nitroglycerin 0.4 mg Q5MINP PRN SL 09/30/24 15:45 Vasopressin 20 units/Sodium Chloride 100 ml @ 9 mls/hr Q11H7M IV 09/30/24 19:45 Norepinephrine Bitartrate 250 ml @ 3.75 mls/hr Q24H IV 09/30/24 20:00 10/06/24 16:29 3.75 MLS/HR Pantoprazole Sodium 40 mg DAILY IV 10/01/24 10:00 10/13/24 11:06 40 MG Acetaminophen 650 mg Q6HP PRN NG 10/01/24 02:00 10/01/24 15:00 650 MG Furosemide 80 mg BIDD IV 10/02/24 07:30 10/13/24 05:49 80 MG Enteral Nutritional Formula 1,000 ml 30ML/HR GT 10/03/24 10:00 10/12/24 12:29 1,000 ML Docusate Sodium 100 mg DAILY GT 10/05/24 10:00 10/13/24 08:08 100 MG Diagnostic Test (Pha) 1 strip Q6HR 10/04/24 12:00 10/13/24 11:12 1 STRIP Insulin Human Regular Q6HR SC 10/04/24 12:00 10/13/24 00:05 2 UNITS Dextrose 50 ml UD PRN IV 10/04/24 12:00 Propofol 100 ml @ 2.697 mls/ hr Q24H IV 10/08/24 16:45 Fentanyl Citrate 250 ml @ 2.5 mls/hr Q24H IV 10/08/24 16:45 Polyethylene Glycol 17 gm DAILY PO 10/11/24 10:00 10/13/24 08:08 17 GM Sennosides 8.6 mg HS PO 10/10/24 22:00 10/12/24 22:13 8.6 MG Examination: GENERAL:Abnormal, LUNGS:Abnormal, MSK:Abnormal, NEURO:Normal laboratory and microbiology Laboratory Tests 10/13/24 03:36 Test 10/13/24 03:36 Range/Units Serum Glucose 107 H 74-106 mg/dL Microbiology Date/Time Source Procedure Growth Status 10/05/24 19:49 Blood Blood Culture - Final NO GROWTH AFTER 5 DAYS OF INCUBATION. Complete 10/03/24 15:40 Nose MRSA Screen - Final Complete 10/01/24 00:36 Urine - [place] Urine Culture - Final Complete Problem List/Assessment/Plan Problem List/Assessment/Plan Acute kidney injury likely possibly ATN in the setting of shock Shock Chronic kidney disease stage 3a Acute respiratory failure Methamphetamine intoxication Sepsis Hypokalemia Hypoglycemia Recommendations HD today will consider tomorrow also HD for solute clearance Plan discussed with: Other My Orders My Orders Orders - LUIZ RIDLEY MD Procedure Category Date Status Time Hemodialysis Orders ORDERS 10/13/24 Transmitted 04:00 Sodium Chloride 0.9% PHA 10/13/24 In Process 10:00 Dietary Evaluation Review Comments: 1) Initiate Pro-Stat @ 30 mL qd. Flush 30 mL H2O AC/PC. 2) Increase TF to 35 mL/hr goal rate. TF rate will provide 1612 kcals, 83g Pro (including Pro-Stat), and 626 mL free H2O per 24 hrs. TF rate will meet ~ 79% estimated energy needs and 75% estimated protein needs 3) Initiate vitamin C @ 500 mg bid and zinc sulfate @ 220 mg qd for 7-10 days. 4) Consider Nephro-[place] @ 1 tb qd 5) Follow-up with nephrology, cardiology, pulmonology, and high school social studies teacher 6) Continue to monitor I&O, labs, and skin integrity Expected Outcomes/Goals: 1) labs to improve 2) wound to improve 3) diet to advance 4) f/u in 2-3 days LUIZ RIDLEY MD October 13, 2024 16:09
--- NOTE | 2024-10-13 16:23 | DVHPN2 ---
Reviewed: Care Plan, H&P, Labs, Medications, Previous Orders, Radiology, Other (Consultations) Changes from previous H/P or p: No Changes General: Per HPI Objective Vitals Vital Signs Date Time Temp Pulse Resp B/P (MAP) Pulse Ox O2 Delivery O2 Flow Rate FiO2 10/13/24 15:54 71 16 110/68 (82) 100 30 10/13/24 14:00 Mechanical Ventilator+ 10/13/24 11:00 98.0 98.0 Intake/Output Intake and Output 10/13/24 07:00 Intake Total 447 ml Output Total 1500 ml Balance -1053 ml Intake Oral 230 ml Tube Feeding 217 ml Output Urine Total 1500 ml # Bowel Movements 2 General Appearance: Other (Intubated and sedated) HEENT: Atraumatic Lungs: Other (Mechanical ventilation sounds) Cardiovascular: Normal S1, Normal S2, Other (Irregularly irregular) Abdomen: Soft Genitourinary: Other (Inman's catheter) Musculoskeletal: Other (Motor removed) Extremities: Other (Dusky lower extremities) Neuro: Other (Intubated and sedated) Skin: Dry, Intact Psych/Mental Status: Other (Intubated and sedated) Medications Current Medications Medications Dose Ordered Sig/Conner Route Start Time Stop Time Status Last Admin Dose Admin Aspirin 81 mg DAILY PO 10/01/24 10:00 10/13/24 11:06 81 MG Gabapentin 300 mg HS PO 09/30/24 22:00 10/12/24 22:13 300 MG Carvedilol 6.25 mg BID PO 09/30/24 22:00 Hold 09/30/24 17:32 6.25 MG Ondansetron HCl 4 mg Q4HP PRN IV 09/30/24 15:45 Nitroglycerin 0.4 mg Q5MINP PRN SL 09/30/24 15:45 Vasopressin 20 units/Sodium Chloride 100 ml @ 9 mls/hr Q11H7M IV 09/30/24 19:45 Norepinephrine Bitartrate 250 ml @ 3.75 mls/hr Q24H IV 09/30/24 20:00 10/06/24 16:29 3.75 MLS/HR Pantoprazole Sodium 40 mg DAILY IV 10/01/24 10:00 10/13/24 11:06 40 MG Acetaminophen 650 mg Q6HP PRN NG 10/01/24 02:00 10/01/24 15:00 650 MG Furosemide 80 mg BIDD IV 10/02/24 07:30 10/13/24 05:49 80 MG Enteral Nutritional Formula 1,000 ml 30ML/HR GT 10/03/24 10:00 10/12/24 12:29 1,000 ML Docusate Sodium 100 mg DAILY GT 10/05/24 10:00 10/13/24 08:08 100 MG Diagnostic Test (Pha) 1 strip Q6HR 10/04/24 12:00 10/13/24 11:12 1 STRIP Insulin Human Regular Q6HR SC 10/04/24 12:00 10/13/24 00:05 2 UNITS Dextrose 50 ml UD PRN IV 10/04/24 12:00 Propofol 100 ml @ 2.697 mls/ hr Q24H IV 10/08/24 16:45 Fentanyl Citrate 250 ml @ 2.5 mls/hr Q24H IV 10/08/24 16:45 Polyethylene Glycol 17 gm DAILY PO 10/11/24 10:00 10/13/24 08:08 17 GM Sennosides 8.6 mg HS PO 10/10/24 22:00 10/12/24 22:13 8.6 MG Laboratory Results Laboratory Tests 10/13/24 03:36 Chemistry Test 10/13/24 03:36 Calcium Level 10.8 mg/dL (8.7-10.4) H Magnesium Level 2.9 mg/dL (1.6-2.6) H Phosphorus Level 7.8 mg/dL (2.4-5.1) H Urinalysis Test 10/01/24 00:36 Urine Creatinine 241.60 mg/dL (30.0-125.0) H Urine Sodium 35 mmol/L (40-220) L Blood Gas Results Test 10/13/24 07:29 10/13/24 13:40 Arterial Blood pH 7.445 (7.350-7.450) 7.377 (7.350-7.450) FiO2 % 30.0 30.0 Microbiology Microbiology Date/Time Source Procedure Growth Status 10/05/24 19:49 Blood Blood Culture - Final NO GROWTH AFTER 5 DAYS OF INCUBATION. Complete 10/03/24 15:40 Nose MRSA Screen - Final Complete 10/01/24 00:36 Urine - [place] Urine Culture - Final Complete Labs and/or images reviewed: Labs reviewed by me, Image(s) reviewed by me Assessment/Plan Assessment/Plan ASSESSMENT AND PLAN Acute metabolic/toxic encephalopathy Acute hypoxic respiratory failure due to multi-organism pneumonia Septic shock due to multi-organism pneumonia Leukocytosis due to septic shock Thrombocytopenia due to septic shock ATN on HD Electrolytes imbalance in the setting of CIARAN in septic shock Acute on chronic systolic heart failure HFrEF 10% Atrial fibrillation with RVR type 2 MS demand ischemia Uncontrolled diabetes mellitus type 2 with hyperglycemia Polysubstance (alcohol, marijuana, methamphetamine, and tobacco) use disorder sedation vacation CPAP c/w mechanical vent c/w pressors maintain MAP >65 c/w insulin maintain FS 150-200 empiric abx done dialysis per renal 10/11/2024: remains on ventilator off sedation for days 10/12/2024: pt is more awake but still not able to follow commands remains intubated for now may need tracheostomy diet TF hold for CPAP dvt ppx lovenox gi ppx protonix full code condition critical prognosis poor >45 mins critical care time spent Plan discussed with: Other (nursing staff) Date of Service: October 13, 2024 Billing Provider: YESENIA KEATING DO Common Visit Codes: [id number] CARE 30-74 MIN YESENIA KEATING DO October 13, 2024 16:23
--- NOTE | 2024-10-13 22:12 | DVHPN2 ---
Progress Note - Dictate Date Seen: October 13, 2024 Has the PT tested + for MRSA If YES, has PT been informed?: No Medical Necessity Reason Pt with a Central, PICC or Fol: Yes The following are medically ne: Central Line, Venegas Catheter Reason for venegas catheter: Strict I&O Subjective Patient was seen and evaluated in follow up in the ICU. Patient is intubated on ventilator. FiO2 30%. Patient is off sedation. Patient is slow to waken, follows some commands. Patient receiving HD. vital signs Vital Sign Date Time Temp Pulse Resp B/P (MAP) Pulse Ox O2 Delivery O2 Flow Rate FiO2 10/13/24 21:55 78 17 119/68 (85) 100 30 10/13/24 18:30 Mechanical Ventilator+ 10/13/24 16:30 99.8 99.8 Total Intake and Output 10/12/24 10/12/24 10/13/24 15:00 23:00 07:00 Intake Total 233 ml 214 ml Output Total 650 ml 850 ml Balance -417 ml -636 ml medications Current Medications Medications Dose Ordered Sig/Conner Route Start Time Stop Time Status Last Admin Dose Admin Aspirin 81 mg DAILY PO 10/01/24 10:00 10/13/24 11:06 81 MG Gabapentin 300 mg HS PO 09/30/24 22:00 10/12/24 22:13 300 MG Carvedilol 6.25 mg BID PO 09/30/24 22:00 Hold 09/30/24 17:32 6.25 MG Ondansetron HCl 4 mg Q4HP PRN IV 09/30/24 15:45 Nitroglycerin 0.4 mg Q5MINP PRN SL 09/30/24 15:45 Vasopressin 20 units/Sodium Chloride 100 ml @ 9 mls/hr Q11H7M IV 09/30/24 19:45 Norepinephrine Bitartrate 250 ml @ 3.75 mls/hr Q24H IV 09/30/24 20:00 10/06/24 16:29 3.75 MLS/HR Pantoprazole Sodium 40 mg DAILY IV 10/01/24 10:00 10/13/24 11:06 40 MG Acetaminophen 650 mg Q6HP PRN NG 10/01/24 02:00 10/01/24 15:00 650 MG Furosemide 80 mg BIDD IV 10/02/24 07:30 10/13/24 19:05 80 MG Enteral Nutritional Formula 1,000 ml 30ML/HR GT 10/03/24 10:00 10/12/24 12:29 1,000 ML Docusate Sodium 100 mg DAILY GT 10/05/24 10:00 10/13/24 08:08 100 MG Diagnostic Test (Pha) 1 strip Q6HR 10/04/24 12:00 10/13/24 18:00 1 STRIP Insulin Human Regular Q6HR SC 10/04/24 12:00 10/13/24 00:05 2 UNITS Dextrose 50 ml UD PRN IV 10/04/24 12:00 Propofol 100 ml @ 2.697 mls/ hr Q24H IV 10/08/24 16:45 Fentanyl Citrate 250 ml @ 2.5 mls/hr Q24H IV 10/08/24 16:45 Polyethylene Glycol 17 gm DAILY PO 10/11/24 10:00 10/13/24 08:08 17 GM Sennosides 8.6 mg HS PO 10/10/24 22:00 10/12/24 22:13 8.6 MG objective GENERAL: Ill appearing, intubated on ventilator. EYES: PERRL, EOMI. Anicteric. HENT: Moist mucous membranes. LUNGS: Transmitted breath sounds bilaterally. Decreased air entry bilaterally. CARDIOVASCULAR: Irregular rate and rhythm. ABDOMEN: Soft, non-tender and non-distended. EXTREMITIES: No edema. SKIN: Warm, dry. laboratory and microbiology Laboratory Tests 10/13/24 03:36 Test 10/13/24 03:36 Range/Units Serum Glucose 107 H 74-106 mg/dL Problem List Chest pain. NSTEMI. Atrial Fibrillation with RVR. CIARAN. Community acquired pneumonia. Acute on chronic systolic heart failure EF 10%. DM2 with hyperglycemia. Constipation. Anxiety. Acute respiratory failure. Assessment/Plan Continued all current supportive medical care. Aspirin. Diuretics with Lasix. Vasopressors for hemodynamic support. IV antibiotics as ordered. GI prophylactics. Additional plan as per the hospital course. Critical care time of 45 minutes provided to include time spent evaluation of patient at bedside, when appropriate patient/family education for diagnosis, treatment plan, review of pertinent medical information and discussion of care with specialty providers and PCP. Mechanical ventilator parameters, treatment and adjustments have personally been reviewed by me and treatment plan by building components designer has also been reviewed. Dietary Evaluation Review Comments: 1) Initiate Pro-Stat @ 30 mL qd. Flush 30 mL H2O AC/PC. 2) Increase TF to 35 mL/hr goal rate. TF rate will provide 1612 kcals, 83g Pro (including Pro-Stat), and 626 mL free H2O per 24 hrs. TF rate will meet ~ 79% estimated energy needs and 75% estimated protein needs 3) Initiate vitamin C @ 500 mg bid and zinc sulfate @ 220 mg qd for 7-10 days. 4) Consider Nephro-[place] @ 1 tb qd 5) Follow-up with nephrology, cardiology, pulmonology, and social media job titles 6) Continue to monitor I&O, labs, and skin integrity Expected Outcomes/Goals: 1) labs to improve 2) wound to improve 3) diet to advance 4) f/u in 2-3 days Plan discussed with: DESHAUN Jackson MD October 13, 2024 22:12
--- NOTE | 2024-10-13 22:16 | DVHPN2 ---
Progress Note - Dictate Date Seen: October 13, 2024 Has the PT tested + for MRSA If YES, has PT been informed?: No Medical Necessity Reason Pt with a Central, PICC or Fol: Yes The following are medically ne: Central Line, Venegas Catheter Reason for venegas catheter: Strict I&O Subjective Patient seen and examined at bedside. Intubated on mechanical ventilator. Overnight events reviewed. vital signs Vital Sign Date Time Temp Pulse Resp B/P (MAP) Pulse Ox O2 Delivery O2 Flow Rate FiO2 10/13/24 21:55 78 17 119/68 (85) 100 30 10/13/24 18:30 Mechanical Ventilator+ 10/13/24 16:30 99.8 99.8 Total Intake and Output 10/12/24 10/12/24 10/13/24 15:00 23:00 07:00 Intake Total 233 ml 214 ml Output Total 650 ml 850 ml Balance -417 ml -636 ml medications Current Medications Medications Dose Ordered Sig/Conner Route Start Time Stop Time Status Last Admin Dose Admin Aspirin 81 mg DAILY PO 10/01/24 10:00 10/13/24 11:06 81 MG Gabapentin 300 mg HS PO 09/30/24 22:00 10/12/24 22:13 300 MG Carvedilol 6.25 mg BID PO 09/30/24 22:00 Hold 09/30/24 17:32 6.25 MG Ondansetron HCl 4 mg Q4HP PRN IV 09/30/24 15:45 Nitroglycerin 0.4 mg Q5MINP PRN SL 09/30/24 15:45 Vasopressin 20 units/Sodium Chloride 100 ml @ 9 mls/hr Q11H7M IV 09/30/24 19:45 Norepinephrine Bitartrate 250 ml @ 3.75 mls/hr Q24H IV 09/30/24 20:00 10/06/24 16:29 3.75 MLS/HR Pantoprazole Sodium 40 mg DAILY IV 10/01/24 10:00 10/13/24 11:06 40 MG Acetaminophen 650 mg Q6HP PRN NG 10/01/24 02:00 10/01/24 15:00 650 MG Furosemide 80 mg BIDD IV 10/02/24 07:30 10/13/24 19:05 80 MG Enteral Nutritional Formula 1,000 ml 30ML/HR GT 10/03/24 10:00 10/12/24 12:29 1,000 ML Docusate Sodium 100 mg DAILY GT 10/05/24 10:00 10/13/24 08:08 100 MG Diagnostic Test (Pha) 1 strip Q6HR 10/04/24 12:00 10/13/24 18:00 1 STRIP Insulin Human Regular Q6HR SC 10/04/24 12:00 10/13/24 00:05 2 UNITS Dextrose 50 ml UD PRN IV 10/04/24 12:00 Propofol 100 ml @ 2.697 mls/ hr Q24H IV 10/08/24 16:45 Fentanyl Citrate 250 ml @ 2.5 mls/hr Q24H IV 10/08/24 16:45 Polyethylene Glycol 17 gm DAILY PO 10/11/24 10:00 10/13/24 08:08 17 GM Sennosides 8.6 mg HS PO 10/10/24 22:00 10/12/24 22:13 8.6 MG objective Gen.: Patient lying in bed in medical ICU. Intubated on mechanical ventilator. Head: Normocephalic, atraumatic. Eyes: PERRLA. Ears: Normal external anatomy. Throat: Endotracheal tube and orogastric tube in place. Neck: Supple, trachea midline. Chest: Transmitted breath sounds bilaterally. Decreased air entry bilaterally. No wheezing. Bibasilar crackles. Cardiovascular: Positive S1, positive S2. Regular rate and rhythm. Abdomen: Positive bowel sounds in all 4 quadrants. Soft, nontender, nondistended. : Venegas in place. Normal external genitalia. Rectal: Deferred. Skin: Warm, dry. Intact. Extremities: 2+ radial pulses bilaterally. No lower extremity edema. Neuro: Off sedation laboratory and microbiology Laboratory Tests 10/13/24 03:36 Test 10/13/24 03:36 Range/Units Serum Glucose 107 H 74-106 mg/dL Assessment/Plan Impression: Acute hypoxic respiratory failure On mechanical ventilator Elevated troponin [id number] myocardial infarction Acute kidney injury, started on HD Syncope Cardiomyopathy EF 10% Substance abuse Events On mechanical ventilation On AC mode; RR 16, VT 400, PEEP 5, FiO2 30% CXR image and report reviewed. Cardiomegaly without overt failure. Trace right pleural effusion. Devices in place. ABG reviewed, compensated. Chronic CO2 retention. Off sedation for several days Blood cultures show no growth x5 days Sputum cultures grew Staph aureus, Pseudomonas aeruginosa, Klebsiella pneumoniae. Accu-Cheks, ISS. Diurese w/ Lasix BID. HD per Nephrology Monitor renal function Monitor electrolytes. Supplement as necessary. Potassium supplementation Monitor ins and outs. Failed CPAP - will attempt in AM OK for Precedex if necessary Labs and imaging reviewed CT of the brain negative for acute abnormalities Plan: s/p intubation on mechanical ventilator. On AC mode; RR 16, VT 400, PEEP 5, FiO2 30% Titrate FIO2 to keep O2 saturation between 88-94%. VAP bundle. Daily ABG and CXR while intubated Off sedation Pressors as necessary for hemodynamic support Titrate to keep mean arterial pressure greater than 65 mmHg. Accu-Cheks, ISS. Monitor renal function Monitor electrolytes. Supplement as necessary. Monitor ins and outs. Maintain euvolemia. Echocardiogram reviewed Cardiology recs appreciated Poor prognosis Recommend trach vs. comfort measures. GI prophylaxis. DVT prophylaxis - Therapeutic Lovenox. Prognosis: Poor given patient's multiple co-morbidities. Condition: Critical Rest of plan per hospitalist and other consultants. A total of 35 minutes of critical care time was spent reviewing the patient record, examining the patient, making a diagnostic and therapeutic plan, discussing this plan with the medical personnel, following up on diagnostic studies and following the patient for clinical stability excluding any and all procedures. At least 50% of this time was spent in direct, [id number] contact. Thank you, YOLANDA Fuller/YOLANDA Stacy, for allowing me to participate in this patient's care. Further recommendations will depend on the patient's clinical course. Please do not hesitate to contact me if you have any questions or concerns. This medical document was created using an electronic medical record system with [employer] dictation system. Although these documentations are being carefully reviewed, there may still be some phonetic and typographical changes. The errors are purely typographical, due to imperfection on the software program, and do not reflect any compromise in the patient's medical care. Dietary Evaluation Review Comments: 1) Initiate Pro-Stat @ 30 mL qd. Flush 30 mL H2O AC/PC. 2) Increase TF to 35 mL/hr goal rate. TF rate will provide 1612 kcals, 83g Pro (including Pro-Stat), and 626 mL free H2O per 24 hrs. TF rate will meet ~ 79% estimated energy needs and 75% estimated protein needs 3) Initiate vitamin C @ 500 mg bid and zinc sulfate @ 220 mg qd for 7-10 days. 4) Consider Nephro-[place] @ 1 tb qd 5) Follow-up with nephrology, cardiology, pulmonology, and sexual assault social worker 6) Continue to monitor I&O, labs, and skin integrity Expected Outcomes/Goals: 1) labs to improve 2) wound to improve 3) diet to advance 4) f/u in 2-3 days Plan discussed with: Other (TATIANA Seth) Critical Care Time(min): 35 YAW PLUNKETT MD October 13, 2024 22:15
[2024-10-14] VITALS (92 sets, daily range): BP systolic 94–141; BP diastolic 58–86; PULSE 60–103; RESP 8–26; TEMP 97.3–99.9; O2SAT 69–100
[2024-10-14 04:21] LABS: Basophils # (auto) 0.1 10 ^3/uL (0-0.2); Basophils % (auto) 1.1 % (0.0-2.0); Eosinophils # (auto) 0.4 10 ^3/uL (0-0.8); Eosinophils % (auto) 4.7 % (0.0-7.0); Hematocrit 50.8 % (41.0-53.0); Hemoglobin 17.6 g/dL (13.5-17.5); Lymphocytes # (auto) 0.9 10 ^3/uL (0.4-5.4); Lymphocytes % (auto) 9.8 % (10.0-50.0); Mean Corpuscular Hemoglobin 33.6 pg (28.0-32.0); Mean Corpuscular Hgb Conc. 34.6 g/dL (32.0-36.0); Monocytes # (auto) 1.4 10 ^3/uL (0-1.3); Monocytes % (auto) 14.9 % (0.0-12.0); Neutrophils # (auto) 6.6 10 ^3/uL (1.6-8.6); Neutrophils % (auto) 69.5 % (37.0-80.0); Nucleated Red Blood Cells % 0.1 %; Platelet Count (auto) 137 10^3/uL (140-450); Red Blood Cells 5.24 10^6/uL (4.5-5.90); Red Cell Distribution Width 15.4 % (11.8-14.3); Sodium 142 mmol/L (136-145); White Blood Cell 9.4 10^3/uL (4.4-10.8)
[2024-10-14 04:22] LABS: Anion Gap 17 (5-15); Carbon Dioxide 28 mmol/L (20-31)
[2024-10-14 04:27] LABS: BUN/Creatinine Ratio 13.6 (10.0-20.0); Calcium 11.2 mg/dL (8.7-10.4); Chloride 97 mmol/L (98-107); Potassium 3.4 mmol/L (3.5-5.1)
[2024-10-14 04:28] LABS: Blood Urea Nitrogen 79 mg/dL (9-23); Glucose 110 mg/dL (74-106)
--- NOTE | 2024-10-14 05:09 | DVH ---
CHEST RADIOGRAPH Indication: INTUBATED Technique: Single frontal view of the chest was obtained COMPARISON: XY CHEST PORTABLE on DOS: 10/13/24, XY CHEST XRAY 1 VIEW on DOS: 10/12/24, XY CHEST XRAY 1 EW on DOS: 10/11/24, XY CHEST PORTABLE on DOS: 10/10/24, XY CHEST PORTABLE on DOS: 10/09/24 FINDINGS: Lines and Tubes: Endotracheal tube and right central venous catheter in satisfactory position. Right PICC in the right atrium. Lungs: Clear Pleura: No effusion. No pneumothorax. Cardiomediastinal contours: Unremarkable Bones: Unremarkable IMPRESSION: Right PICC tip in the right atrium. Recommend retraction by 4 cm.
[2024-10-14 09:20] LABS: Base Excess 2.5 mmol/L (-2.0-3.0)
--- NOTE | 2024-10-14 09:27 | DVHPN2 ---
Subjective Patient was intubated and sedated Reviewed: Care Plan, H&P, Labs, Medications, Previous Orders, Radiology, Other (Consultations) Changes from previous H/P or p: No Changes General: Per HPI Objective Vitals Vital Signs Date Time Temp Pulse Resp B/P (MAP) Pulse Ox O2 Delivery O2 Flow Rate FiO2 10/14/24 08:00 65 10/14/24 08:00 16 100 Mechanical Ventilator+ 30 30 10/14/24 07:15 () 10/14/24 04:00 99.0 99.0 Intake/Output Intake and Output 10/14/24 07:00 Intake Total 306 ml Output Total 2610 ml Balance -2304 ml Intake Oral 150 ml Tube Feeding 156 ml Output Urine Total 810 ml Drainage Total 1800 ml # Bowel Movements 6 General Appearance: Alert, Cooperative, mild distress, Other HEENT: Atraumatic Lungs: Other (Mechanical ventilation sounds) Cardiovascular: Normal S1, Normal S2, Other (Irregularly irregular) Abdomen: Soft Genitourinary: Other (Inman's catheter) Musculoskeletal: Other (Motor removed) Extremities: Other (Dusky lower extremities) Neuro: Other (Intubated and sedated) Skin: Dry, Intact Psych/Mental Status: Other (Intubated and sedated) Medications Current Medications Medications Dose Ordered Sig/Conner Route Start Time Stop Time Status Last Admin Dose Admin Aspirin 81 mg DAILY PO 10/01/24 10:00 10/14/24 09:20 81 MG Gabapentin 300 mg HS PO 09/30/24 22:00 10/13/24 22:15 300 MG Carvedilol 6.25 mg BID PO 09/30/24 22:00 Hold 09/30/24 17:32 6.25 MG Ondansetron HCl 4 mg Q4HP PRN IV 09/30/24 15:45 Nitroglycerin 0.4 mg Q5MINP PRN SL 09/30/24 15:45 Vasopressin 20 units/Sodium Chloride 100 ml @ 9 mls/hr Q11H7M IV 09/30/24 19:45 Norepinephrine Bitartrate 250 ml @ 3.75 mls/hr Q24H IV 09/30/24 20:00 10/06/24 16:29 3.75 MLS/HR Pantoprazole Sodium 40 mg DAILY IV 10/01/24 10:00 10/14/24 09:20 40 MG Acetaminophen 650 mg Q6HP PRN NG 10/01/24 02:00 10/01/24 15:00 650 MG Furosemide 80 mg BIDD IV 10/02/24 07:30 10/14/24 05:50 80 MG Enteral Nutritional Formula 1,000 ml 30ML/HR GT 10/03/24 10:00 10/12/24 12:29 1,000 ML Docusate Sodium 100 mg DAILY GT 10/05/24 10:00 10/13/24 08:08 100 MG Diagnostic Test (Pha) 1 strip Q6HR 10/04/24 12:00 10/14/24 05:22 1 STRIP Insulin Human Regular Q6HR SC 10/04/24 12:00 10/13/24 00:05 2 UNITS Dextrose 50 ml UD PRN IV 10/04/24 12:00 Propofol 100 ml @ 2.697 mls/ hr Q24H IV 10/08/24 16:45 Fentanyl Citrate 250 ml @ 2.5 mls/hr Q24H IV 10/08/24 16:45 Polyethylene Glycol 17 gm DAILY PO 10/11/24 10:00 10/13/24 08:08 17 GM Sennosides 8.6 mg HS PO 10/10/24 22:00 10/12/24 22:13 8.6 MG Laboratory Results Laboratory Tests 10/14/24 03:00 Chemistry Test 10/14/24 03:00 Calcium Level 11.2 mg/dL (8.7-10.4) H Urinalysis Test 10/01/24 00:36 Urine Creatinine 241.60 mg/dL (30.0-125.0) H Urine Sodium 35 mmol/L (40-220) L Blood Gas Results Test 10/13/24 13:40 10/14/24 09:06 Arterial Blood pH 7.377 (7.350-7.450) 7.407 (7.350-7.450) FiO2 % 30.0 30.0 Microbiology Microbiology Date/Time Source Procedure Growth Status 10/05/24 19:49 Blood Blood Culture - Final NO GROWTH AFTER 5 DAYS OF INCUBATION. Complete 10/03/24 15:40 Nose MRSA Screen - Final Complete 10/01/24 00:36 Urine - [place] Urine Culture - Final Complete Labs and/or images reviewed: Labs reviewed by me, Image(s) reviewed by me Assessment/Plan Assessment/Plan Impression: -NSTEMI, probably type 2 secondary to amphetamine use -amphetamine use -cardiomyopathy -acute on chronic systolic heart failure with ejection fraction 10% -acute hypoxic respiratory failure -AFib/flutter with RVR -cardiogenic shock -acute kidney injury, vasomotor nephropathy -underlying CKD stage IIIb/four -leukocytosis, probable sirs -hypoglycemia Plan: Events: Patient more awake and following commands. Patient currently on spontaneous breathing trial without any signs of respiratory distress. -cardiology consultation: Recommendations reviewed -nephrology consultation-HD per their recommendations -continue current ventilator settings, per pulmonology recommendations -norepinephrine drip to keep map greater than 65 mmHg : Currently off. -PUD, DVT prophylaxis -change antibiotic therapy to doxycycline and cefepime given acute renal failure -titrate FiO2 to keep saturation greater than 93%. Currently on 30% FiO2 -repeat labs, chest x-ray, ABG in a.m. Critical care time spent with patient discussing and formulating plan of care: 40 minutes. This does not include time spent performing procedures. This medical document was created using an electronic medical record system with [employer] dictation system. Although this document has been carefully reviewed, there may still be some phonetic and typographical errors. These areas are purely typographical due to imperfections of the software programs, and do not reflect any compromise in the patient's medical care. Plan discussed with: Patient, Other (RN) My Orders Orders - MARK LILLY NP Procedure Category Date Status Time Cpap Trial For Am ORDERS 10/13/24 Transmitted 11:20 Abg W/ Co-Ox RT 10/13/24 Logged 13:30 Chest Portable XY 10/14/24 Resulted 04:00 Abg W/ Co-Ox RT 10/14/24 Logged 06:00 Date of Service: October 14, 2024 Billing Provider: MARK LILLY NP Common Visit Codes: [id number] CARE 30-74 MIN MARK LILLY NP October 14, 2024 09:27
[2024-10-14 20:12] LABS: Basophils # (auto) 0.2 10 ^3/uL (0-0.2); Basophils % (auto) 1.3 % (0.0-2.0); Eosinophils # (auto) 0.4 10 ^3/uL (0-0.8); Hemoglobin 19.4 g/dL (13.5-17.5); Lymphocytes # (auto) 1.2 10 ^3/uL (0.4-5.4); Lymphocytes % (auto) 9.7 % (10.0-50.0); Mean Corpuscular Hemoglobin 32.6 pg (28.0-32.0); Mean Corpuscular Hgb Conc. 33.7 g/dL (32.0-36.0); Mean Corpuscular Volume 96.8 fL (80.0-100.0); Monocytes # (auto) 1.5 10 ^3/uL (0-1.3); Monocytes % (auto) 11.3 % (0.0-12.0); Neutrophils # (auto) 9.6 10 ^3/uL (1.6-8.6); Neutrophils % (auto) 74.7 % (37.0-80.0); Nucleated Red Blood Cells % 0.1 %; Platelet Count (auto) 156 10^3/uL (140-450); Red Blood Cells 5.96 10^6/uL (4.5-5.90); Red Cell Distribution Width 15.8 % (11.8-14.3); White Blood Cell 12.8 10^3/uL (4.4-10.8)
[2024-10-14 20:13] LABS: Hematocrit 57.7 % (41.0-53.0)
--- NOTE | 2024-10-14 21:00 | DVHPN2 ---
Progress Note Date Seen: October 14, 2024 Has the PT tested + for MRSA If YES, has PT been informed?: No Medical Necessity Reason Pt with a Central, PICC or Fol: Yes The following are medically ne: Central Line, Venegas Catheter Reason for venegas catheter: Strict I&O Subjective Patient reports: Other (events noted) Review of Systems: Deferred Objective vital signs Vital Sign Date Time Temp Pulse Resp B/P (MAP) Pulse Ox O2 Delivery O2 Flow Rate FiO2 10/14/24 19:42 69/35 10/14/24 18:30 73 11 99 10/14/24 18:00 Nasal Cannula* 2 28 10/14/24 09:30 97.3 97.3 Total Intake and Output 10/13/24 10/13/24 10/14/24 15:00 23:00 07:00 Intake Total 90 ml 216 ml Output Total 2350 ml 260 ml Balance -2260 ml -44 ml medications Current Medications Medications Dose Ordered Sig/Conner Route Start Time Stop Time Status Last Admin Dose Admin Aspirin 81 mg DAILY PO 10/01/24 10:00 10/14/24 09:20 81 MG Gabapentin 300 mg HS PO 09/30/24 22:00 10/13/24 22:15 300 MG Carvedilol 6.25 mg BID PO 09/30/24 22:00 Hold 09/30/24 17:32 6.25 MG Ondansetron HCl 4 mg Q4HP PRN IV 09/30/24 15:45 Nitroglycerin 0.4 mg Q5MINP PRN SL 09/30/24 15:45 Vasopressin 20 units/Sodium Chloride 100 ml @ 9 mls/hr Q11H7M IV 09/30/24 19:45 Norepinephrine Bitartrate 250 ml @ 3.75 mls/hr Q24H IV 09/30/24 20:00 10/14/24 19:42 3.75 MLS/HR Pantoprazole Sodium 40 mg DAILY IV 10/01/24 10:00 10/14/24 09:20 40 MG Acetaminophen 650 mg Q6HP PRN NG 10/01/24 02:00 10/01/24 15:00 650 MG Furosemide 80 mg BIDD IV 10/02/24 07:30 10/14/24 05:50 80 MG Enteral Nutritional Formula 1,000 ml 30ML/HR GT 10/03/24 10:00 10/12/24 12:29 1,000 ML Docusate Sodium 100 mg DAILY GT 10/05/24 10:00 10/13/24 08:08 100 MG Diagnostic Test (Pha) 1 strip Q6HR 10/04/24 12:00 10/14/24 18:11 1 STRIP Insulin Human Regular Q6HR SC 10/04/24 12:00 10/13/24 00:05 2 UNITS Dextrose 50 ml UD PRN IV 10/04/24 12:00 Propofol 100 ml @ 2.697 mls/ hr Q24H IV 10/08/24 16:45 Fentanyl Citrate 250 ml @ 2.5 mls/hr Q24H IV 10/08/24 16:45 Polyethylene Glycol 17 gm DAILY PO 10/11/24 10:00 10/13/24 08:08 17 GM Sennosides 8.6 mg HS PO 10/10/24 22:00 10/12/24 22:13 8.6 MG Examination: GENERAL:Abnormal, LUNGS:Abnormal, MSK:Abnormal, NEURO:Abnormal laboratory and microbiology Laboratory Tests 10/14/24 19:56 10/14/24 03:00 Test 10/14/24 03:00 Range/Units Serum Glucose 110 H 74-106 mg/dL Microbiology Date/Time Source Procedure Growth Status 10/05/24 19:49 Blood Blood Culture - Final NO GROWTH AFTER 5 DAYS OF INCUBATION. Complete 10/03/24 15:40 Nose MRSA Screen - Final Complete 10/01/24 00:36 Urine - [place] Urine Culture - Final Complete Problem List/Assessment/Plan Problem List/Assessment/Plan Acute kidney injury likely possibly ATN in the setting of shock Shock Chronic kidney disease stage 3a Acute respiratory failure extubated 10/14/24 Methamphetamine intoxication Sepsis Hypokalemia Hypoglycemia Recommendations HD today extubated lines clotted HD rn unable to return blood check stat cbc uf 2 L off Plan discussed with: Other My Orders My Orders Orders - LUIZ RIDLEY MD Procedure Category Date Status Time Hemodialysis Orders ORDERS 10/14/24 Transmitted 12:20 Communication Order ORDERS 10/14/24 Transmitted 19:47 Dietary Evaluation Review Comments: 1) Initiate Pro-Stat @ 30 mL qd. Flush 30 mL H2O AC/PC. 2) Increase TF to 35 mL/hr goal rate. TF rate will provide 1612 kcals, 83g Pro (including Pro-Stat), and 626 mL free H2O per 24 hrs. TF rate will meet ~ 79% estimated energy needs and 75% estimated protein needs 3) Initiate vitamin C @ 500 mg bid and zinc sulfate @ 220 mg qd for 7-10 days. 4) Consider Nephro-[place] @ 1 tb qd 5) Follow-up with nephrology, cardiology, pulmonology, and social studies department chair 6) Continue to monitor I&O, labs, and skin integrity Expected Outcomes/Goals: 1) labs to improve 2) wound to improve 3) diet to advance 4) f/u in 2-3 days Critical Care Time (mins): 42 LUIZ RIDLEY MD October 14, 2024 21:00
--- NOTE | 2024-10-14 22:14 | DVHPN2 ---
Progress Note - Dictate Date Seen: October 14, 2024 Has the PT tested + for MRSA If YES, has PT been informed?: No Medical Necessity Reason Pt with a Central, PICC or Fol: Yes The following are medically ne: Central Line, Venegas Catheter Reason for venegas catheter: Strict I&O Subjective Patient seen and examined at bedside. S/p extubation, currently on supplemental oxygen Overnight events reviewed. vital signs Vital Sign Date Time Temp Pulse Resp B/P (MAP) Pulse Ox O2 Delivery O2 Flow Rate FiO2 10/14/24 19:42 69/35 10/14/24 18:30 73 11 99 10/14/24 18:00 Nasal Cannula* 2 28 10/14/24 09:30 97.3 97.3 Total Intake and Output 10/13/24 10/13/24 10/14/24 15:00 23:00 07:00 Intake Total 90 ml 216 ml Output Total 2350 ml 260 ml Balance -2260 ml -44 ml medications Current Medications Medications Dose Ordered Sig/Conner Route Start Time Stop Time Status Last Admin Dose Admin Aspirin 81 mg DAILY PO 10/01/24 10:00 10/14/24 09:20 81 MG Gabapentin 300 mg HS PO 09/30/24 22:00 10/13/24 22:15 300 MG Carvedilol 6.25 mg BID PO 09/30/24 22:00 Hold 09/30/24 17:32 6.25 MG Ondansetron HCl 4 mg Q4HP PRN IV 09/30/24 15:45 Nitroglycerin 0.4 mg Q5MINP PRN SL 09/30/24 15:45 Vasopressin 20 units/Sodium Chloride 100 ml @ 9 mls/hr Q11H7M IV 09/30/24 19:45 Norepinephrine Bitartrate 250 ml @ 3.75 mls/hr Q24H IV 09/30/24 20:00 10/14/24 19:42 3.75 MLS/HR Pantoprazole Sodium 40 mg DAILY IV 10/01/24 10:00 10/14/24 09:20 40 MG Acetaminophen 650 mg Q6HP PRN NG 10/01/24 02:00 10/01/24 15:00 650 MG Furosemide 80 mg BIDD IV 10/02/24 07:30 10/14/24 05:50 80 MG Enteral Nutritional Formula 1,000 ml 30ML/HR GT 10/03/24 10:00 10/12/24 12:29 1,000 ML Docusate Sodium 100 mg DAILY GT 10/05/24 10:00 10/13/24 08:08 100 MG Diagnostic Test (Pha) 1 strip Q6HR 10/04/24 12:00 10/14/24 18:11 1 STRIP Insulin Human Regular Q6HR SC 10/04/24 12:00 10/13/24 00:05 2 UNITS Dextrose 50 ml UD PRN IV 10/04/24 12:00 Propofol 100 ml @ 2.697 mls/ hr Q24H IV 10/08/24 16:45 Fentanyl Citrate 250 ml @ 2.5 mls/hr Q24H IV 10/08/24 16:45 Polyethylene Glycol 17 gm DAILY PO 10/11/24 10:00 10/13/24 08:08 17 GM Sennosides 8.6 mg HS PO 10/10/24 22:00 10/12/24 22:13 8.6 MG objective Gen.: Patient lying in bed in no apparent distress. On supplemental oxygen. Head: Normocephalic, atraumatic. Eyes: EOMI/PERRLA. Ears: Normal hearing. Normal anatomy. Neck/trachea: Trachea midline, supple. Nose: Normal external anatomy. Mouth: Moist mucous membranes. Chest: Decreased air entry bilaterally. No wheezing or rhonchi. Cardiovascular: Positive S1, positive S2. Regular rate and rhythm. Abdomen: Positive bowel sounds in all 4 quadrants. Soft, non-tender, non- distended. : Deferred. Rectal: Deferred. Skin: Warm, dry. Intact. Extremities: 2+ radial pulses bilaterally. No lower extremity edema. Neuro: Awake, alert, oriented x3. No gross motor or sensory deficits. Cranial nerves II through XII intact. Gait not assessed. laboratory and microbiology Laboratory Tests 10/14/24 19:56 10/14/24 03:00 Test 10/14/24 03:00 Range/Units Serum Glucose 110 H 74-106 mg/dL Assessment/Plan Impression: Acute hypoxic respiratory failure Mechanical ventilation, s/p extubation Elevated troponin Nuk-SY-ucjscqxal myocardial infarction Acute kidney injury, started on HD Syncope Cardiomyopathy EF 10% Substance abuse Events Patient tolerated CPAP this AM and was extubated uneventfully Placed on Aerosol Coolmist Head of bed elevation Aspiration precautions. Protonix for GI prophylaxis Blood cultures show no growth x5 days Sputum cultures grew Staph aureus, Pseudomonas aeruginosa, Klebsiella pneumoniae. Monitor WBC - currently 12.8 K HD per Nephrology - plan for hemodialysis this PM Monitor renal function - elevated BUN, creatinine Monitor electrolytes. Supplement as necessary. Monitor ins and outs. Labs and imaging reviewed Plan: S/p extubation Supplemental oxygen Titrate to keep O2 sats above 90%. Pressors as necessary for hemodynamic support Titrate to keep mean arterial pressure greater than 65 mmHg. Accu-Cheks, ISS PRN. Monitor renal function Monitor electrolytes. Supplement as necessary. Monitor ins and outs. Maintain euvolemia. Echocardiogram reviewed Cardiology recs appreciated GI prophylaxis. DVT prophylaxis Prognosis: Poor given patient's multiple co-morbidities. Condition: Critical Rest of plan per hospitalist and other consultants. A total of 35 minutes of critical care time was spent reviewing the patient record, examining the patient, making a diagnostic and therapeutic plan, discussing this plan with the medical personnel, following up on diagnostic studies and following the patient for clinical stability excluding any and all procedures. At least 50% of this time was spent in direct, tyqd-li-[id number] contact. Thank you, YOLANDA Fuller/YOLANDA Stacy, for allowing me to participate in this patient's care. Further recommendations will depend on the patient's clinical course. Please do not hesitate to contact me if you have any questions or concerns. This medical document was created using an electronic medical record system with [employer] dictation system. Although these documentations are being carefully reviewed, there may still be some phonetic and typographical changes. The errors are purely typographical, due to imperfection on the software program, and do not reflect any compromise in the patient's medical care. Dietary Evaluation Review Comments: 1) Initiate Pro-Stat @ 30 mL qd. Flush 30 mL H2O AC/PC. 2) Increase TF to 35 mL/hr goal rate. TF rate will provide 1612 kcals, 83g Pro (including Pro-Stat), and 626 mL free H2O per 24 hrs. TF rate will meet ~ 79% estimated energy needs and 75% estimated protein needs 3) Initiate vitamin C @ 500 mg bid and zinc sulfate @ 220 mg qd for 7-10 days. 4) Consider Nephro-[place] @ 1 tb qd 5) Follow-up with nephrology, cardiology, pulmonology, and social media specialist 6) Continue to monitor I&O, labs, and skin integrity Expected Outcomes/Goals: 1) labs to improve 2) wound to improve 3) diet to advance 4) f/u in 2-3 days Plan discussed with: Other (TATIANA Sweet/Maggie) Critical Care Time(min): 35 YAW PLUNKETT MD October 14, 2024 22:14
--- NOTE | 2024-10-14 23:05 | DVHPN2 ---
Progress Note - Dictate Date Seen: October 14, 2024 Has the PT tested + for MRSA If YES, has PT been informed?: No Medical Necessity Reason Pt with a Central, PICC or Fol: Yes The following are medically ne: Central Line, Venegas Catheter Reason for venegas catheter: Strict I&O Subjective Patient was seen and evaluated in follow up in the ICU. Patient was successfully extubated, Patient currently on 2 LPM NC. Patient is complaining of throat discomfort. WBC 12.8, K 3.4, BUN 79, Project Planner 5.79. vital signs Vital Sign Date Time Temp Pulse Resp B/P (MAP) Pulse Ox O2 Delivery O2 Flow Rate FiO2 10/14/24 19:42 69/35 10/14/24 18:30 73 11 99 10/14/24 18:00 Nasal Cannula* 2 28 10/14/24 09:30 97.3 97.3 Total Intake and Output 10/13/24 10/13/24 10/14/24 15:00 23:00 07:00 Intake Total 90 ml 216 ml Output Total 2350 ml 260 ml Balance -2260 ml -44 ml medications Current Medications Medications Dose Ordered Sig/Conner Route Start Time Stop Time Status Last Admin Dose Admin Aspirin 81 mg DAILY PO 10/01/24 10:00 10/14/24 09:20 81 MG Gabapentin 300 mg HS PO 09/30/24 22:00 10/14/24 22:22 300 MG Carvedilol 6.25 mg BID PO 09/30/24 22:00 Hold 09/30/24 17:32 6.25 MG Ondansetron HCl 4 mg Q4HP PRN IV 09/30/24 15:45 Nitroglycerin 0.4 mg Q5MINP PRN SL 09/30/24 15:45 Vasopressin 20 units/Sodium Chloride 100 ml @ 9 mls/hr Q11H7M IV 09/30/24 19:45 Norepinephrine Bitartrate 250 ml @ 3.75 mls/hr Q24H IV 09/30/24 20:00 10/14/24 19:42 3.75 MLS/HR Pantoprazole Sodium 40 mg DAILY IV 10/01/24 10:00 10/14/24 09:20 40 MG Acetaminophen 650 mg Q6HP PRN NG 10/01/24 02:00 10/01/24 15:00 650 MG Furosemide 80 mg BIDD IV 10/02/24 07:30 10/14/24 05:50 80 MG Enteral Nutritional Formula 1,000 ml 30ML/HR GT 10/03/24 10:00 10/12/24 12:29 1,000 ML Docusate Sodium 100 mg DAILY GT 10/05/24 10:00 10/13/24 08:08 100 MG Diagnostic Test (Pha) 1 strip Q6HR 10/04/24 12:00 10/14/24 18:11 1 STRIP Insulin Human Regular Q6HR SC 10/04/24 12:00 10/13/24 00:05 2 UNITS Dextrose 50 ml UD PRN IV 10/04/24 12:00 Propofol 100 ml @ 2.697 mls/ hr Q24H IV 10/08/24 16:45 Fentanyl Citrate 250 ml @ 2.5 mls/hr Q24H IV 10/08/24 16:45 Polyethylene Glycol 17 gm DAILY PO 10/11/24 10:00 10/13/24 08:08 17 GM Sennosides 8.6 mg HS PO 10/10/24 22:00 10/12/24 22:13 8.6 MG objective GENERAL: Alert and oriented x 3. No acute distress. EYES: PERRL, EOMI. Anicteric. HENT: Moist mucous membranes. LUNGS: Decreased air entry bilaterally. CARDIOVASCULAR: Irregular rate and rhythm. ABDOMEN: Soft, non-tender and non-distended. EXTREMITIES: No edema. SKIN: Warm, dry. laboratory and microbiology Laboratory Tests 10/14/24 19:56 10/14/24 03:00 Test 10/14/24 03:00 Range/Units Serum Glucose 110 H 74-106 mg/dL Problem List Chest pain. NSTEMI. Atrial Fibrillation with RVR. CIARAN. Community acquired pneumonia. Acute on chronic systolic heart failure EF 10%. DM2 with hyperglycemia. Constipation. Anxiety. Acute respiratory failure. Assessment/Plan Continued all current supportive medical care. Aspirin. Diuretics with Lasix. Vasopressors for hemodynamic support. IV antibiotics as ordered. GI prophylactics. Additional plan as per the hospital course. Critical care time of 45 minutes provided to include time spent evaluation of patient at bedside, when appropriate patient/family education for diagnosis, treatment plan, review of pertinent medical information and discussion of care with specialty providers and PCP. Dietary Evaluation Review Comments: 1) Initiate Pro-Stat @ 30 mL qd. Flush 30 mL H2O AC/PC. 2) Increase TF to 35 mL/hr goal rate. TF rate will provide 1612 kcals, 83g Pro (including Pro-Stat), and 626 mL free H2O per 24 hrs. TF rate will meet ~ 79% estimated energy needs and 75% estimated protein needs 3) Initiate vitamin C @ 500 mg bid and zinc sulfate @ 220 mg qd for 7-10 days. 4) Consider Nephro-[place] @ 1 tb qd 5) Follow-up with nephrology, cardiology, pulmonology, and outreach and education social worker 6) Continue to monitor I&O, labs, and skin integrity Expected Outcomes/Goals: 1) labs to improve 2) wound to improve 3) diet to advance 4) f/u in 2-3 days Plan discussed with: Patient DESHAUN PETERSON MD October 14, 2024 23:05
[2024-10-15] VITALS (87 sets, daily range): BP systolic 94–139; BP diastolic 61–87; PULSE 61–78; RESP 13–26; TEMP 97.5–99; O2SAT 96–100
[2024-10-15 03:47] LABS: Anion Gap 13 (5-15); Carbon Dioxide 28 mmol/L (20-31); Potassium 4.4 mmol/L (3.5-5.1); Sodium 137 mmol/L (136-145)
[2024-10-15 03:53] LABS: BUN/Creatinine Ratio 11.2 (10.0-20.0)
[2024-10-15 04:22] LABS: Blood Urea Nitrogen 64 mg/dL (9-23); Calcium 10.7 mg/dL (8.7-10.4); Chloride 96 mmol/L (98-107); Glucose 127 mg/dL (74-106)
[2024-10-15 04:40] LABS: Base Excess -0.2 mmol/L (-2.0-3.0)
--- NOTE | 2024-10-15 05:27 | DVH ---
EXAM: CT Head Without Intravenous Contrast CLINICAL INDICATION: CHANGE IN MENTATION TECHNIQUE: Axial computed tomography images of the head/brain without intravenous contrast. This CT exam was performed using one or more of the following dose reduction techniques: automated exposure control, adjustment of the mA and/or kV according to patient size, and/or use of iterative reconstru ction technique. CONTRAST: RADIATION DOSE: CTDIvol = 56.19 mGy, DLP = 995.01 mGy-cm COMPARISON: CT HEAD WITHOUT CONTRAST on DOS: 10/10/24, CT HEAD WITHOUT CONTRAST on DOS: 09/30/24 FINDINGS: BRAIN AND EXTRA-AXIAL SPACES: Prominent tentorium. Areas of decreased attenuation in the deep cere bral white matter are consistent with small vessel ischemic/degenerative changes. The cerebral and c erebellar sulci are prominent consistent with brain atrophy. No acute intracranial hemorrhage, midli ne shift or mass effect. If symptoms persist, further evaluation with MRI is recommended. BONES/JOINTS: Unremarkable. No acute fracture. SOFT TISSUES: Unremarkable. SINUSES: Unremarkable as visualized. No acute sinusitis. MASTOID AIR CELLS: Unremarkable as visualized. No mastoid effusion. OTHER FINDINGS: . . IMPRESSION: 1. Small vessel ischemic/degenerative changes. 2. Generalized brain atrophy. 3. No acute intracranial hemorrhage, midline shift or mass effect. If symptoms persist, further eval uation with MRI is recommended. 4. No significant change from the prior exam.
--- NOTE | 2024-10-15 09:26 | DVHPN2 ---
Subjective Patient was intubated and sedated Reviewed: Care Plan, H&P, Labs, Medications, Previous Orders, Radiology, Other (Consultations) Changes from previous H/P or p: No Changes General: Per HPI Objective Vitals Vital Signs Date Time Temp Pulse Resp B/P (MAP) Pulse Ox O2 Delivery O2 Flow Rate FiO2 10/15/24 09:00 77 16 107/67 (80) 100 10/15/24 08:00 98.2 98.2 10/15/24 08:00 Nasal Cannula* 2 28 Intake/Output Intake and Output 10/15/24 07:00 Intake Total 727.5 ml Output Total 400 ml Balance 327.5 ml Intake Oral 720 ml IV Total 7.5 ml Output Urine Total 400 ml General Appearance: Alert, Cooperative, mild distress, Other HEENT: Atraumatic Lungs: Clear to auscultation, Normal air movement Cardiovascular: Normal S1, Normal S2, Other (Irregularly irregular) Abdomen: Soft Genitourinary: Other (Inman's catheter) Musculoskeletal: Other (Motor removed) Extremities: Other (Dusky lower extremities) Neuro: Other (Intubated and sedated) Skin: Dry, Intact Psych/Mental Status: Other (Intubated and sedated) Medications Current Medications Medications Dose Ordered Sig/Conner Route Start Time Stop Time Status Last Admin Dose Admin Aspirin 81 mg DAILY PO 10/01/24 10:00 10/15/24 08:44 81 MG Gabapentin 300 mg HS PO 09/30/24 22:00 10/14/24 22:22 300 MG Carvedilol 6.25 mg BID PO 09/30/24 22:00 Hold 09/30/24 17:32 6.25 MG Ondansetron HCl 4 mg Q4HP PRN IV 09/30/24 15:45 Nitroglycerin 0.4 mg Q5MINP PRN SL 09/30/24 15:45 Vasopressin 20 units/Sodium Chloride 100 ml @ 9 mls/hr Q11H7M IV 09/30/24 19:45 Norepinephrine Bitartrate 250 ml @ 3.75 mls/hr Q24H IV 09/30/24 20:00 10/14/24 19:42 3.75 MLS/HR Pantoprazole Sodium 40 mg DAILY IV 10/01/24 10:00 10/15/24 08:44 40 MG Acetaminophen 650 mg Q6HP PRN NG 4/23/25 02:00 10/01/24 15:00 650 MG Furosemide 80 mg BIDD IV 10/02/24 07:30 10/15/24 06:00 80 MG Enteral Nutritional Formula 1,000 ml 30ML/HR GT 10/03/24 10:00 10/12/24 12:29 1,000 ML Docusate Sodium 100 mg DAILY GT 10/05/24 10:00 10/13/24 08:08 100 MG Diagnostic Test (Pha) 1 strip Q6HR 10/04/24 12:00 10/15/24 06:00 1 STRIP Insulin Human Regular Q6HR SC 10/04/24 12:00 10/15/24 00:47 3 UNITS Dextrose 50 ml UD PRN IV 10/04/24 12:00 Propofol 100 ml @ 2.697 mls/ hr Q24H IV 10/08/24 16:45 Fentanyl Citrate 250 ml @ 2.5 mls/hr Q24H IV 10/08/24 16:45 Polyethylene Glycol 17 gm DAILY PO 10/11/24 10:00 10/13/24 08:08 17 GM Sennosides 8.6 mg HS PO 10/10/24 22:00 10/12/24 22:13 8.6 MG Laboratory Results Laboratory Tests 10/14/24 19:56 10/15/24 03:00 Chemistry Test 10/15/24 03:00 Calcium Level 10.7 mg/dL (8.7-10.4) H Urinalysis Test 10/01/24 00:36 Urine Creatinine 241.60 mg/dL (30.0-125.0) H Urine Sodium 35 mmol/L (40-220) L Blood Gas Results Test 10/15/24 04:28 Arterial Blood pH 7.416 (7.350-7.450) FiO2 % 28.0 Microbiology Microbiology Date/Time Source Procedure Growth Status 10/05/24 19:49 Blood Blood Culture - Final NO GROWTH AFTER 5 DAYS OF INCUBATION. Complete 10/03/24 15:40 Nose MRSA Screen - Final Complete 10/01/24 00:36 Urine - [place] Urine Culture - Final Complete Labs and/or images reviewed: Labs reviewed by me, Image(s) reviewed by me Assessment/Plan Assessment/Plan Impression: -NSTEMI, probably type 2 secondary to amphetamine use -amphetamine use -cardiomyopathy -acute on chronic systolic heart failure with ejection fraction 10% -acute hypoxic respiratory failure -AFib/flutter with RVR -cardiogenic shock -acute kidney injury, vasomotor nephropathy -underlying CKD stage IIIb/four -leukocytosis, probable sirs -hypoglycemia Plan: Events: Extubated yesterday. Patient required norepinephrine drip while receiving hemodialysis yesterday evening. Apparently, patient had period of being somewhat nonresponsive this a.m. for which ABG in CT of the scan of the head was performed. Both unremarkable. Patient able to verbally communicate with myself this a.m.. -cardiology consultation: Recommendations reviewed -nephrology consultation-HD per their recommendations -PUD, DVT prophylaxis -physical therapy -downgrade to step-down ICU Critical care time spent with patient discussing and formulating plan of care: 40 minutes. This does not include time spent performing procedures. This medical document was created using an electronic medical record system with [employer] dictation system. Although this document has been carefully reviewed, there may still be some phonetic and typographical errors. These areas are purely typographical due to imperfections of the software programs, and do not reflect any compromise in the patient's medical care. Plan discussed with: Patient, Other (RN) My Orders Orders - MARK LILLY NP Procedure Category Date Status Time Cardiac DIET 10/14/24 Transmitted Diet-2gna,Lofat,Lochol Dinner Basic Metabolic Panel LAB 10/16/24 Verified 04:00 Complete Blood Count LAB 10/16/24 Verified 04:00 Date of Service: October 15, 2024 Billing Provider: MARK LILLY NP Common Visit Codes: 86868-[id number] CARE 30-74 MIN MARK LILLY NP October 15, 2024 09:26
--- NOTE | 2024-10-15 16:19 | DVHPN2 ---
Progress Note Date Seen: October 15, 2024 Has the PT tested + for MRSA If YES, has PT been informed?: No Medical Necessity Reason Pt with a Central, PICC or Fol: Yes The following are medically ne: Central Line, Venegas Catheter Reason for venegas catheter: Strict I&O Subjective Patient reports: No new complaints Review of Systems: Deferred Objective vital signs Vital Sign Date Time Temp Pulse Resp B/P (MAP) Pulse Ox O2 Delivery O2 Flow Rate FiO2 10/15/24 16:15 68 18 109/68 (82) 100 10/15/24 16:00 99.0 99.0 10/15/24 16:00 Nasal Cannula* 2 28 Total Intake and Output 10/14/24 10/14/24 10/15/24 15:00 23:00 07:00 Intake Total 7.5 ml 720 ml Output Total 350 ml 50 ml Balance -342.5 ml 670 ml medications Current Medications Medications Dose Ordered Sig/Conner Route Start Time Stop Time Status Last Admin Dose Admin Aspirin 81 mg DAILY PO 10/01/24 10:00 10/15/24 08:44 81 MG Gabapentin 300 mg HS PO 09/30/24 22:00 10/14/24 22:22 300 MG Carvedilol 6.25 mg BID PO 09/30/24 22:00 Hold 09/30/24 17:32 6.25 MG Ondansetron HCl 4 mg Q4HP PRN IV 09/30/24 15:45 Nitroglycerin 0.4 mg Q5MINP PRN SL 09/30/24 15:45 Vasopressin 20 units/Sodium Chloride 100 ml @ 9 mls/hr Q11H7M IV 09/30/24 19:45 Norepinephrine Bitartrate 250 ml @ 3.75 mls/hr Q24H IV 09/30/24 20:00 10/14/24 19:42 3.75 MLS/HR Pantoprazole Sodium 40 mg DAILY IV 10/01/24 10:00 10/15/24 08:44 40 MG Acetaminophen 650 mg Q6HP PRN NG 10/01/24 02:00 10/01/24 15:00 650 MG Furosemide 80 mg BIDD IV 10/02/24 07:30 10/15/24 06:00 80 MG Enteral Nutritional Formula 1,000 ml 30ML/HR GT 10/03/24 10:00 10/12/24 12:29 1,000 ML Docusate Sodium 100 mg DAILY GT 10/05/24 10:00 10/13/24 08:08 100 MG Diagnostic Test (Pha) 1 strip Q6HR 10/04/24 12:00 10/15/24 12:32 1 STRIP Insulin Human Regular Q6HR SC 10/04/24 12:00 10/15/24 12:36 3 UNITS Dextrose 50 ml UD PRN IV 10/04/24 12:00 Propofol 100 ml @ 2.697 mls/ hr Q24H IV 10/08/24 16:45 Fentanyl Citrate 250 ml @ 2.5 mls/hr Q24H IV 10/08/24 16:45 Polyethylene Glycol 17 gm DAILY PO 10/11/24 10:00 10/13/24 08:08 17 GM Sennosides 8.6 mg HS PO 10/10/24 22:00 10/12/24 22:13 8.6 MG Examination: GENERAL:Abnormal, LUNGS:Abnormal, MSK:Normal, NEURO:Normal laboratory and microbiology Laboratory Tests 10/15/24 03:00 10/14/24 19:56 Test 10/15/24 03:00 Range/Units Serum Glucose 127 H 74-106 mg/dL Microbiology Date/Time Source Procedure Growth Status 10/05/24 19:49 Blood Blood Culture - Final NO GROWTH AFTER 5 DAYS OF INCUBATION. Complete 10/03/24 15:40 Nose MRSA Screen - Final Complete 10/01/24 00:36 Urine - [place] Urine Culture - Final Complete Problem List/Assessment/Plan Problem List/Assessment/Plan Acute kidney injury likely possibly ATN in the setting of shock Shock Chronic kidney disease stage 3a Acute respiratory failure extubated 10/14/24 Methamphetamine intoxication Sepsis Hypokalemia Hypoglycemia Recommendations HD tomorrow extubated lines clotting--use heparin next HD Plan discussed with: Other My Orders My Orders Orders - LUIZ RIDLEY MD Procedure Category Date Status Time Communication Order ORDERS 10/14/24 Transmitted 19:47 Dietary Evaluation Review Comments: 1) Initiate Pro-Stat @ 30 mL qd. Flush 30 mL H2O AC/PC. 2) Increase TF to 35 mL/hr goal rate. TF rate will provide 1612 kcals, 83g Pro (including Pro-Stat), and 626 mL free H2O per 24 hrs. TF rate will meet ~ 79% estimated energy needs and 75% estimated protein needs 3) Initiate vitamin C @ 500 mg bid and zinc sulfate @ 220 mg qd for 7-10 days. 4) Consider Nephro-[place] @ 1 tb qd 5) Follow-up with nephrology, cardiology, pulmonology, and director social service 6) Continue to monitor I&O, labs, and skin integrity Expected Outcomes/Goals: 1) labs to improve 2) wound to improve 3) diet to advance 4) f/u in 2-3 days LUIZ RIDLEY MD October 15, 2024 16:19
--- NOTE | 2024-10-15 18:09 | DVHPN2 ---
Progress Note - Dictate Date Seen: October 15, 2024 Has the PT tested + for MRSA If YES, has PT been informed?: No Medical Necessity Reason Pt with a Central, PICC or Fol: Yes The following are medically ne: Central Line, Venegas Catheter Reason for venegas catheter: Strict I&O Subjective Patient was seen and evaluated in follow up in the ICU. Patient is on 2 LPM NC. Early this morning, the patient's mentation changed post bed bath/linen change. Patient became verbally unresponsive to verbal stimuli, is responsive to painful stimuli. BUN 64, COSMETIC DENTIST 5.73. CT head shows small vessel ischemic/degenerative changes. Generalized brain atrophy. No acute intracranial hemorrhage, midline shift or mass effect. No significant change from the prior exam. vital signs Vital Sign Date Time Temp Pulse Resp B/P (MAP) Pulse Ox O2 Delivery O2 Flow Rate FiO2 10/15/24 12:00 17 100 Nasal Cannula* 2 28 10/15/24 10:45 73 109/68 (82) 10/15/24 08:00 98.2 98.2 Total Intake and Output 10/14/24 10/14/24 10/15/24 15:00 23:00 07:00 Intake Total 7.5 ml 720 ml Output Total 350 ml 50 ml Balance -342.5 ml 670 ml medications Current Medications Medications Dose Ordered Sig/Conner Route Start Time Stop Time Status Last Admin Dose Admin Aspirin 81 mg DAILY PO 10/01/24 10:00 10/15/24 08:44 81 MG Gabapentin 300 mg HS PO 09/30/24 22:00 10/14/24 22:22 300 MG Carvedilol 6.25 mg BID PO 09/30/24 22:00 Hold 09/30/24 17:32 6.25 MG Ondansetron HCl 4 mg Q4HP PRN IV 09/30/24 15:45 Nitroglycerin 0.4 mg Q5MINP PRN SL 09/30/24 15:45 Vasopressin 20 units/Sodium Chloride 100 ml @ 9 mls/hr Q11H7M IV 09/30/24 19:45 Norepinephrine Bitartrate 250 ml @ 3.75 mls/hr Q24H IV 09/30/24 20:00 10/14/24 19:42 3.75 MLS/HR Pantoprazole Sodium 40 mg DAILY IV 10/01/24 10:00 10/15/24 08:44 40 MG Acetaminophen 650 mg Q6HP PRN NG 10/01/24 02:00 10/01/24 15:00 650 MG Furosemide 80 mg BIDD IV 10/02/24 07:30 10/15/24 06:00 80 MG Enteral Nutritional Formula 1,000 ml 30ML/HR GT 10/03/24 10:00 10/12/24 12:29 1,000 ML Docusate Sodium 100 mg DAILY GT 10/05/24 10:00 10/13/24 08:08 100 MG Diagnostic Test (Pha) 1 strip Q6HR 10/04/24 12:00 10/15/24 12:32 1 STRIP Insulin Human Regular Q6HR SC 10/04/24 12:00 10/15/24 12:36 3 UNITS Dextrose 50 ml UD PRN IV 10/04/24 12:00 Propofol 100 ml @ 2.697 mls/ hr Q24H IV 10/08/24 16:45 Fentanyl Citrate 250 ml @ 2.5 mls/hr Q24H IV 10/08/24 16:45 Polyethylene Glycol 17 gm DAILY PO 10/11/24 10:00 10/13/24 08:08 17 GM Sennosides 8.6 mg HS PO 10/10/24 22:00 10/12/24 22:13 8.6 MG objective GENERAL: Alert and oriented x 3. No acute distress. EYES: PERRL, EOMI. Anicteric. HENT: Moist mucous membranes. LUNGS: Decreased air entry bilaterally. CARDIOVASCULAR: Irregular rate and rhythm. ABDOMEN: Soft, non-tender and non-distended. EXTREMITIES: No edema. SKIN: Warm, dry. laboratory and microbiology Laboratory Tests 10/15/24 03:00 10/14/24 19:56 Test 10/15/24 03:00 Range/Units Serum Glucose 127 H 74-106 mg/dL Problem List Chest pain. NSTEMI. Atrial Fibrillation with RVR. CIARAN. Community acquired pneumonia. Acute on chronic systolic heart failure EF 10%. DM2 with hyperglycemia. Constipation. Anxiety. Acute respiratory failure. Assessment/Plan Continued all current supportive medical care. Aspirin. Diuretics with Lasix. Vasopressors for hemodynamic support. GI prophylactics. Additional plan as per the hospital course. Critical care time of 45 minutes provided to include time spent evaluation of patient at bedside, when appropriate patient/family education for diagnosis, treatment plan, review of pertinent medical information and discussion of care with specialty providers and PCP. Dietary Evaluation Review Comments: 1) Initiate Pro-Stat @ 30 mL qd. Flush 30 mL H2O AC/PC. 2) Increase TF to 35 mL/hr goal rate. TF rate will provide 1612 kcals, 83g Pro (including Pro-Stat), and 626 mL free H2O per 24 hrs. TF rate will meet ~ 79% estimated energy needs and 75% estimated protein needs 3) Initiate vitamin C @ 500 mg bid and zinc sulfate @ 220 mg qd for 7-10 days. 4) Consider Nephro-[place] @ 1 tb qd 5) Follow-up with nephrology, cardiology, pulmonology, and social service manager 6) Continue to monitor I&O, labs, and skin integrity Expected Outcomes/Goals: 1) labs to improve 2) wound to improve 3) diet to advance 4) f/u in 2-3 days Plan discussed with: Other DESHAUN PETERSON MD October 15, 2024 13:10
[2024-10-15] MEDS: ETOMIDATE (2MG/ML) 20ML VIAL IV ONE (19:00)
[2024-10-15] MEDS: SODIUM CHL 0.9% 1000 ML BAG XX ONE (20:41)
[2024-10-15] MEDS: SUCCINYLCHOLINE CHLORIDE 20 MG/ML 10ML VIAL IV ONE (20:41)
--- NOTE | 2024-10-15 22:58 | DVHPN2 ---
Progress Note - Dictate Date Seen: October 15, 2024 Has the PT tested + for MRSA If YES, has PT been informed?: No Medical Necessity Reason Pt with a Central, PICC or Fol: Yes The following are medically ne: Central Line, Venegas Catheter Reason for venegas catheter: Strict I&O Subjective Patient seen and examined at bedside. Remains on supplemental oxygen Overnight events reviewed. vital signs Vital Sign Date Time Temp Pulse Resp B/P (MAP) Pulse Ox O2 Delivery O2 Flow Rate FiO2 10/15/24 20:45 65 16 127/76 (93) 100 10/15/24 20:00 98.0 98.0 10/15/24 18:00 Nasal Cannula* 2 28 Total Intake and Output 10/14/24 10/14/24 10/15/24 15:00 23:00 07:00 Intake Total 7.5 ml 720 ml Output Total 350 ml 50 ml Balance -342.5 ml 670 ml medications Current Medications Medications Dose Ordered Sig/Conner Route Start Time Stop Time Status Last Admin Dose Admin Aspirin 81 mg DAILY PO 10/01/24 10:00 10/15/24 08:44 81 MG Gabapentin 300 mg HS PO 09/30/24 22:00 10/15/24 22:19 300 MG Carvedilol 6.25 mg BID PO 09/30/24 22:00 Hold 09/30/24 17:32 6.25 MG Ondansetron HCl 4 mg Q4HP PRN IV 09/30/24 15:45 Nitroglycerin 0.4 mg Q5MINP PRN SL 09/30/24 15:45 Vasopressin 20 units/Sodium Chloride 100 ml @ 9 mls/hr Q11H7M IV 09/30/24 19:45 Norepinephrine Bitartrate 250 ml @ 3.75 mls/hr Q24H IV 09/30/24 20:00 10/14/24 19:42 3.75 MLS/HR Pantoprazole Sodium 40 mg DAILY IV 10/01/24 10:00 10/15/24 08:44 40 MG Acetaminophen 650 mg Q6HP PRN NG 10/01/24 02:00 10/01/24 15:00 650 MG Furosemide 80 mg BIDD IV 10/02/24 07:30 10/15/24 17:17 80 MG Enteral Nutritional Formula 1,000 ml 30ML/HR GT 10/03/24 10:00 10/12/24 12:29 1,000 ML Docusate Sodium 100 mg DAILY GT 10/05/24 10:00 10/13/24 08:08 100 MG Diagnostic Test (Pha) 1 strip Q6HR 10/04/24 12:00 10/15/24 17:17 1 STRIP Insulin Human Regular Q6HR SC 10/04/24 12:00 10/15/24 12:36 3 UNITS Dextrose 50 ml UD PRN IV 10/04/24 12:00 Polyethylene Glycol 17 gm DAILY PO 10/11/24 10:00 10/13/24 08:08 17 GM Sennosides 8.6 mg HS PO 10/10/24 22:00 10/12/24 22:13 8.6 MG objective Gen.: Patient lying in bed in no apparent distress. On supplemental oxygen. Head: Normocephalic, atraumatic. Eyes: EOMI/PERRLA. Ears: Normal hearing. Normal anatomy. Neck/trachea: Trachea midline, supple. Nose: Normal external anatomy. Mouth: Moist mucous membranes. Chest: Decreased air entry bilaterally. No wheezing or rhonchi. Cardiovascular: Positive S1, positive S2. Regular rate and rhythm. Abdomen: Positive bowel sounds in all 4 quadrants. Soft, non-tender, non- distended. : Deferred. Rectal: Deferred. Skin: Warm, dry. Intact. Extremities: 2+ radial pulses bilaterally. No lower extremity edema. Neuro: Awake, alert, oriented x3. No gross motor or sensory deficits. Cranial nerves II through XII intact. Gait not assessed. laboratory and microbiology Laboratory Tests 10/15/24 03:00 10/14/24 19:56 Test 10/15/24 03:00 Range/Units Serum Glucose 127 H 74-106 mg/dL Assessment/Plan Impression: Acute hypoxic respiratory failure Elevated troponin [id number] myocardial infarction Acute kidney injury, started on HD Syncope Cardiomyopathy EF 10% Substance abuse Events Remains on supplemental oxygen, on 2 LPM NC Taper O2 as tolerated No overnight events ABG reviewed, compensated. CT head demonstrates generalized brain atrophy; small vessel ischemic/degenerative changes. No e/o intracranial hemorrhage. Head of bed elevation Aspiration precautions. Protonix for GI prophylaxis Monitor WBC Diurese w/ Lasix BID HD per Nephrology Monitor renal function - elevated BUN, creatinine Monitor electrolytes. Supplement as necessary. Monitor ins and outs. Labs and imaging reviewed Plan: S/p extubation on 10/14/24 Supplemental oxygen Titrate to keep O2 sats above 92% Pressors as necessary for hemodynamic support Titrate to keep mean arterial pressure greater than 65 mmHg. Blood cultures show no growth x5 days Sputum cultures grew Staph aureus, Pseudomonas aeruginosa, Klebsiella pneumoniae. Accu-Cheks, ISS. Monitor renal function Monitor electrolytes. Supplement as necessary. Monitor ins and outs. Maintain euvolemia. Echocardiogram reviewed Cardiology recs appreciated GI prophylaxis. DVT prophylaxis Prognosis: Poor given patient's multiple co-morbidities. Condition: Critical Rest of plan per hospitalist and other consultants. A total of 35 minutes of critical care time was spent reviewing the patient record, examining the patient, making a diagnostic and therapeutic plan, discussing this plan with the medical personnel, following up on diagnostic studies and following the patient for clinical stability excluding any and all procedures. At least 50% of this time was spent in direct, [id number] contact. Thank you, YOLANDA Fuller/YOLANDA Stacy, for allowing me to participate in this patient's care. Further recommendations will depend on the patient's clinical course. Please do not hesitate to contact me if you have any questions or concerns. This medical document was created using an electronic medical record system with [employer] computerized dictation system. Although these documentations are being carefully reviewed, there may still be some phonetic and typographical changes. The errors are purely typographical, due to imperfection on the software program, and do not reflect any compromise in the patient's medical care. Dietary Evaluation Review Comments: 1) Initiate Pro-Stat @ 30 mL qd. Flush 30 mL H2O AC/PC. 2) Increase TF to 35 mL/hr goal rate. TF rate will provide 1612 kcals, 83g Pro (including Pro-Stat), and 626 mL free H2O per 24 hrs. TF rate will meet ~ 79% estimated energy needs and 75% estimated protein needs 3) Initiate vitamin C @ 500 mg bid and zinc sulfate @ 220 mg qd for 7-10 days. 4) Consider Nephro-[place] @ 1 tb qd 5) Follow-up with nephrology, cardiology, pulmonology, and social media content manager 6) Continue to monitor I&O, labs, and skin integrity Expected Outcomes/Goals: 1) labs to improve 2) wound to improve 3) diet to advance 4) f/u in 2-3 days Plan discussed with: Other (TATIANA Church) Critical Care Time(min): 35 YAW PLUNKETT MD October 15, 2024 22:58
[2024-10-16] VITALS (64 sets, daily range): BP systolic 83–136; BP diastolic 48–81; PULSE 61–97; RESP 11–28; TEMP 97–98.3; O2SAT 96–100
[2024-10-16 04:01] LABS: Anion Gap 16 (5-15); Carbon Dioxide 27 mmol/L (20-31)
[2024-10-16 04:02] LABS: Basophils # (auto) 0.1 10 ^3/uL (0-0.2); Eosinophils # (auto) 0.5 10 ^3/uL (0-0.8); Eosinophils % (auto) 4.5 % (0.0-7.0); Hematocrit 51.5 % (41.0-53.0); Hemoglobin 17.5 g/dL (13.5-17.5); Lymphocytes # (auto) 1.1 10 ^3/uL (0.4-5.4); Lymphocytes % (auto) 9.4 % (10.0-50.0); Mean Corpuscular Hemoglobin 33.3 pg (28.0-32.0); Mean Corpuscular Volume 97.7 fL (80.0-100.0); Monocytes # (auto) 1.7 10 ^3/uL (0-1.3); Neutrophils % (auto) 70.1 % (37.0-80.0); Nucleated Red Blood Cells % 0.2 %; Platelet Count (auto) 150 10^3/uL (140-450); Red Blood Cells 5.27 10^6/uL (4.5-5.90); Red Cell Distribution Width 15.2 % (11.8-14.3); White Blood Cell 11.4 10^3/uL (4.4-10.8)
[2024-10-16 04:04] LABS: Calcium 10.7 mg/dL (8.7-10.4); Chloride 91 mmol/L (98-107); Sodium 134 mmol/L (136-145)
[2024-10-16 04:06] LABS: BUN/Creatinine Ratio 13.9 (10.0-20.0)
[2024-10-16 04:38] LABS: Glucose 124 mg/dL (74-106)
[2024-10-16 04:39] LABS: Blood Urea Nitrogen 92 mg/dL (9-23)
--- NOTE | 2024-10-16 09:27 | DVHPN2 ---
Subjective Patient denies any symptoms. Reviewed: Care Plan, H&P, Labs, Medications, Previous Orders, Radiology, Other (Consultations) Changes from previous H/P or p: No Changes General: Per HPI Objective Vitals Vital Signs Date Time Temp Pulse Resp B/P (MAP) Pulse Ox O2 Delivery O2 Flow Rate FiO2 10/16/24 07:57 62 10/16/24 07:46 15 100 Nasal Cannula* 2 28 10/16/24 05:43 111/62 10/16/24 05:00 97.6 97.6 Intake/Output Intake and Output 10/16/24 07:00 Intake Total 870 ml Output Total 250 ml Balance 620 ml Intake Oral 870 ml Output Urine Total 250 ml # Bowel Movements 6 General Appearance: Alert, Oriented X3, Cooperative, mild distress, Other HEENT: Atraumatic, PERRLA Lungs: Clear to auscultation, Normal air movement Cardiovascular: Normal S1, Normal S2, Other (Irregularly irregular) Abdomen: Soft Genitourinary: Other (Inman's catheter) Musculoskeletal: Other (Motor removed) Extremities: Other (Dusky lower extremities) Neuro: Other (Intubated and sedated) Skin: Dry, Intact Psych/Mental Status: Other (Intubated and sedated) Medications Current Medications Medications Dose Ordered Sig/Conner Route Start Time Stop Time Status Last Admin Dose Admin Aspirin 81 mg DAILY PO 10/01/24 10:00 10/16/24 08:27 81 MG Gabapentin 300 mg HS PO 09/30/24 22:00 10/15/24 22:19 300 MG Carvedilol 6.25 mg BID PO 09/30/24 22:00 Hold 09/30/24 17:32 6.25 MG Ondansetron HCl 4 mg Q4HP PRN IV 09/30/24 15:45 Nitroglycerin 0.4 mg Q5MINP PRN SL 09/30/24 15:45 Vasopressin 20 units/Sodium Chloride 100 ml @ 9 mls/hr Q11H7M IV 09/30/24 19:45 Norepinephrine Bitartrate 250 ml @ 3.75 mls/hr Q24H IV 09/30/24 20:00 10/14/24 19:42 3.75 MLS/HR Pantoprazole Sodium 40 mg DAILY IV 10/01/24 10:00 10/16/24 08:27 40 MG Acetaminophen 650 mg Q6HP PRN NG 10/01/24 02:00 10/01/24 15:00 650 MG Furosemide 80 mg BIDD IV 10/02/24 07:30 10/16/24 05:43 80 MG Enteral Nutritional Formula 1,000 ml 30ML/HR GT 10/03/24 10:00 10/12/24 12:29 1,000 ML Docusate Sodium 100 mg DAILY GT 10/05/24 10:00 10/13/24 08:08 100 MG Diagnostic Test (Pha) 1 strip Q6HR 10/04/24 12:00 10/16/24 05:42 1 STRIP Insulin Human Regular Q6HR SC 10/04/24 12:00 10/16/24 05:52 2 UNITS Dextrose 50 ml UD PRN IV 10/04/24 12:00 Polyethylene Glycol 17 gm DAILY PO 10/11/24 10:00 10/13/24 08:08 17 GM Sennosides 8.6 mg HS PO 10/10/24 22:00 10/12/24 22:13 8.6 MG Laboratory Results Laboratory Tests 10/16/24 03:08 Chemistry Test 10/16/24 03:08 Calcium Level 10.7 mg/dL (8.7-10.4) H Urinalysis Test 10/01/24 00:36 Urine Creatinine 241.60 mg/dL (30.0-125.0) H Urine Sodium 35 mmol/L (40-220) L Microbiology Microbiology Date/Time Source Procedure Growth Status 10/05/24 19:49 Blood Blood Culture - Final NO GROWTH AFTER 5 DAYS OF INCUBATION. Complete 10/03/24 15:40 Nose MRSA Screen - Final Complete 10/01/24 00:36 Urine - [place] Urine Culture - Final Complete Labs and/or images reviewed: Labs reviewed by me, Image(s) reviewed by me Assessment/Plan Assessment/Plan Impression: -NSTEMI, probably type 2 secondary to amphetamine use -amphetamine use -cardiomyopathy -acute on chronic systolic heart failure with ejection fraction 10% -acute hypoxic respiratory failure -AFib/flutter with RVR -cardiogenic shock -acute kidney injury, vasomotor nephropathy -underlying CKD stage IIIb/four -leukocytosis, probable sirs -hypoglycemia Plan: Events: No events overnight. Patient somewhat encephalopathic, but able to follow commands intermittently. Blood pressure soft. May require norepinephrine drip for hemodialysis today. -cardiology consultation: Recommendations reviewed -nephrology consultation-HD per their recommendations -PUD, DVT prophylaxis -physical therapy -downgrade to step-down ICU Critical care time spent with patient discussing and formulating plan of care: 40 minutes. This does not include time spent performing procedures. This medical document was created using an electronic medical record system with [employer] dictation system. Although this document has been carefully reviewed, there may still be some phonetic and typographical errors. These areas are purely typographical due to imperfections of the software programs, and do not reflect any compromise in the patient's medical care. Plan discussed with: Patient, Other (RN) My Orders Orders - MARK LILLY NP Procedure Category Date Status Time Pt Request For Service PT 10/15/24 Logged 09:26 Transfer Orders XFER 10/15/24 Transmitted 09:26 Date of Service: October 16, 2024 Billing Provider: MARK LILLY NP Common Visit Codes: 68429-[id number] CARE 30-74 MIN MARK LILLY NP October 16, 2024 09:27
--- NOTE | 2024-10-16 10:58 | DVHPN2 ---
Progress Note Date Seen: October 16, 2024 Has the PT tested + for MRSA If YES, has PT been informed?: No Medical Necessity Reason Pt with a Central, PICC or Fol: Yes The following are medically ne: Central Line, Venegas Catheter Reason for venegas catheter: Strict I&O Subjective Patient reports: Other Review of Systems: Deferred Objective vital signs Vital Sign Date Time Temp Pulse Resp B/P (MAP) Pulse Ox O2 Delivery O2 Flow Rate FiO2 10/16/24 10:00 68 10/16/24 10:00 15 125/67 (86) 100 10/16/24 10:00 Nasal Cannula* 2 28 10/16/24 08:00 97.6 97.6 Total Intake and Output 10/15/24 10/15/24 10/16/24 15:00 23:00 07:00 Intake Total 90 ml 300 ml 480 ml Output Total 50 ml 200 ml Balance 90 ml 250 ml 280 ml medications Current Medications Medications Dose Ordered Sig/Conner Route Start Time Stop Time Status Last Admin Dose Admin Aspirin 81 mg DAILY PO 10/01/24 10:00 10/16/24 08:27 81 MG Gabapentin 300 mg HS PO 09/30/24 22:00 10/15/24 22:19 300 MG Carvedilol 6.25 mg BID PO 09/30/24 22:00 Hold 09/30/24 17:32 6.25 MG Ondansetron HCl 4 mg Q4HP PRN IV 09/30/24 15:45 Nitroglycerin 0.4 mg Q5MINP PRN SL 09/30/24 15:45 Norepinephrine Bitartrate 250 ml @ 3.75 mls/hr Q24H IV 09/30/24 20:00 10/14/24 19:42 3.75 MLS/HR Pantoprazole Sodium 40 mg DAILY IV 10/01/24 10:00 10/16/24 08:27 40 MG Acetaminophen 650 mg Q6HP PRN NG 10/01/24 02:00 10/01/24 15:00 650 MG Furosemide 80 mg BIDD IV 10/02/24 07:30 10/16/24 05:43 80 MG Docusate Sodium 100 mg DAILY GT 10/05/24 10:00 10/13/24 08:08 100 MG Diagnostic Test (Pha) 1 strip Q6HR 10/04/24 12:00 10/16/24 05:42 1 STRIP Insulin Human Regular Q6HR SC 10/04/24 12:00 10/16/24 05:52 2 UNITS Dextrose 50 ml UD PRN IV 10/04/24 12:00 Polyethylene Glycol 17 gm DAILY PO 10/11/24 10:00 10/13/24 08:08 17 GM Sennosides 8.6 mg HS PO 10/10/24 22:00 10/12/24 22:13 8.6 MG Examination: GENERAL:Normal, MSK:Abnormal, NEURO:Abnormal laboratory and microbiology Laboratory Tests 10/16/24 03:08 Test 10/16/24 03:08 Range/Units Serum Glucose 124 H 74-106 mg/dL Microbiology Date/Time Source Procedure Growth Status 10/05/24 19:49 Blood Blood Culture - Final NO GROWTH AFTER 5 DAYS OF INCUBATION. Complete 10/03/24 15:40 Nose MRSA Screen - Final Complete 10/01/24 00:36 Urine - [place] Urine Culture - Final Complete Problem List/Assessment/Plan Problem List/Assessment/Plan Acute kidney injury likely possibly ATN in the setting of shock Shock Chronic kidney disease stage 3a Acute respiratory failure extubated 10/14/24 Methamphetamine intoxication Sepsis Hypokalemia Hypoglycemia Recommendations HD today extubated lines clotting--use heparin today HD once more awake will need tunneled cath chairtime with dcd Plan discussed with: Patient, Other My Orders My Orders Orders - LUIZ RIDLEY MD Procedure Category Date Status Time Hemodialysis Orders ORDERS 10/16/24 Transmitted 08:37 Dietary Evaluation Review Comments: 1) Initiate Pro-Stat @ 30 mL qd. Flush 30 mL H2O AC/PC. 2) Increase TF to 35 mL/hr goal rate. TF rate will provide 1612 kcals, 83g Pro (including Pro-Stat), and 626 mL free H2O per 24 hrs. TF rate will meet ~ 79% estimated energy needs and 75% estimated protein needs 3) Initiate vitamin C @ 500 mg bid and zinc sulfate @ 220 mg qd for 7-10 days. 4) Consider Nephro-[place] @ 1 tb qd 5) Follow-up with nephrology, cardiology, pulmonology, and social research assistant 6) Continue to monitor I&O, labs, and skin integrity Expected Outcomes/Goals: 1) labs to improve 2) wound to improve 3) diet to advance 4) f/u in 2-3 days TANJAVOUR,LUIZ MD October 16, 2024 10:58
[2024-10-16 13:27] LABS: Base Excess -1.1 mmol/L (-2.0-3.0)
[2024-10-16] MEDS: SODIUM CHL 0.9% 1000 ML BAG XX ONE (22:07)
--- NOTE | 2024-10-16 23:45 | DVHPN2 ---
Progress Note - Dictate Date Seen: October 16, 2024 Has the PT tested + for MRSA If YES, has PT been informed?: No Medical Necessity Reason Pt with a Central, PICC or Fol: Yes The following are medically ne: Central Line, Venegas Catheter Reason for venegas catheter: Strict I&O Subjective Patient was seen and evaluated in follow up in the ICU. Overnight, the patient had a run of SVT on the residential monitor, patient was asymptomatic. Patient is stable on 2 LPM NC. WBC 11.4, BUN 92, VENDING MACHINE ATTENDANT 6.61, CA 10.7. vital signs Vital Sign Date Time Temp Pulse Resp B/P (MAP) Pulse Ox O2 Delivery O2 Flow Rate FiO2 10/16/24 11:00 62 15 103/64 (77) 100 10/16/24 10:00 Nasal Cannula* 2 28 10/16/24 08:00 97.6 97.6 Total Intake and Output 10/15/24 10/15/24 10/16/24 15:00 23:00 07:00 Intake Total 90 ml 300 ml 480 ml Output Total 50 ml 200 ml Balance 90 ml 250 ml 280 ml medications Current Medications Medications Dose Ordered Sig/Conner Route Start Time Stop Time Status Last Admin Dose Admin Aspirin 81 mg DAILY PO 10/01/24 10:00 10/16/24 08:27 81 MG Gabapentin 300 mg HS PO 09/30/24 22:00 10/15/24 22:19 300 MG Carvedilol 6.25 mg BID PO 09/30/24 22:00 Hold 09/30/24 17:32 6.25 MG Ondansetron HCl 4 mg Q4HP PRN IV 09/30/24 15:45 Nitroglycerin 0.4 mg Q5MINP PRN SL 09/30/24 15:45 Norepinephrine Bitartrate 250 ml @ 3.75 mls/hr Q24H IV 09/30/24 20:00 10/14/24 19:42 3.75 MLS/HR Pantoprazole Sodium 40 mg DAILY IV 10/01/24 10:00 10/16/24 08:27 40 MG Acetaminophen 650 mg Q6HP PRN NG 10/01/24 02:00 10/01/24 15:00 650 MG Furosemide 80 mg BIDD IV 10/02/24 07:30 10/16/24 05:43 80 MG Docusate Sodium 100 mg DAILY GT 10/05/24 10:00 10/13/24 08:08 100 MG Diagnostic Test (Pha) 1 strip Q6HR 10/04/24 12:00 10/16/24 05:42 1 STRIP Insulin Human Regular Q6HR SC 10/04/24 12:00 10/16/24 05:52 2 UNITS Dextrose 50 ml UD PRN IV 10/04/24 12:00 Polyethylene Glycol 17 gm DAILY PO 10/11/24 10:00 10/13/24 08:08 17 GM Sennosides 8.6 mg HS PO 10/10/24 22:00 10/12/24 22:13 8.6 MG objective GENERAL: Alert and oriented x 3. No acute distress. EYES: PERRL, EOMI. Anicteric. HENT: Moist mucous membranes. LUNGS: Decreased air entry bilaterally. CARDIOVASCULAR: Irregular rate and rhythm. ABDOMEN: Soft, non-tender and non-distended. EXTREMITIES: No edema. SKIN: Warm, dry. laboratory and microbiology Laboratory Tests 10/16/24 03:08 Test 10/16/24 03:08 Range/Units Serum Glucose 124 H 74-106 mg/dL Problem List Chest pain. NSTEMI. Atrial Fibrillation with RVR. CIARAN. Community acquired pneumonia. Acute on chronic systolic heart failure EF 10%. DM2 with hyperglycemia. Constipation. Anxiety. Acute respiratory failure. Assessment/Plan Continued all current supportive medical care. Aspirin. Diuretics with Lasix. Vasopressors for hemodynamic support. GI prophylactics. Additional plan as per the hospital course. Critical care time of 45 minutes provided to include time spent evaluation of patient at bedside, when appropriate patient/family education for diagnosis, treatment plan, review of pertinent medical information and discussion of care with specialty providers and PCP. Dietary Evaluation Review Comments: 1) Initiate Pro-Stat @ 30 mL qd. Flush 30 mL H2O AC/PC. 2) Increase TF to 35 mL/hr goal rate. TF rate will provide 1612 kcals, 83g Pro (including Pro-Stat), and 626 mL free H2O per 24 hrs. TF rate will meet ~ 79% estimated energy needs and 75% estimated protein needs 3) Initiate vitamin C @ 500 mg bid and zinc sulfate @ 220 mg qd for 7-10 days. 4) Consider Nephro-[place] @ 1 tb qd 5) Follow-up with nephrology, cardiology, pulmonology, and social service technician 6) Continue to monitor I&O, labs, and skin integrity Expected Outcomes/Goals: 1) labs to improve 2) wound to improve 3) diet to advance 4) f/u in 2-3 days Plan discussed with: Patient DESHAUN PETERSON MD October 16, 2024 11:39
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
[2024-10-17] VITALS (95 sets, daily range): BP systolic 81–126; BP diastolic 34–74; PULSE 61–88; RESP 8–24; TEMP 97–98.3; O2SAT 90–100
[2024-10-17 07:58] LABS: Basophils # (auto) 0.1 10 ^3/uL (0-0.2); Basophils % (auto) 0.8 % (0.0-2.0); Eosinophils # (auto) 0.5 10 ^3/uL (0-0.8); Eosinophils % (auto) 4.3 % (0.0-7.0); Hematocrit 47.3 % (41.0-53.0); Hemoglobin 15.9 g/dL (13.5-17.5); Lymphocytes # (auto) 0.8 10 ^3/uL (0.4-5.4); Mean Corpuscular Hemoglobin 32.7 pg (28.0-32.0); Mean Corpuscular Hgb Conc. 33.7 g/dL (32.0-36.0); Monocytes # (auto) 1.5 10 ^3/uL (0-1.3); Monocytes % (auto) 12.6 % (0.0-12.0); Neutrophils % (auto) 75.3 % (37.0-80.0); Platelet Count (auto) 148 10^3/uL (140-450); Red Blood Cells 4.87 10^6/uL (4.5-5.90); Red Cell Distribution Width 15.4 % (11.8-14.3); White Blood Cell 11.9 10^3/uL (4.4-10.8)
[2024-10-17 08:14] LABS: INR 1.23 (0.9-1.15); Partial Thromboplastin Time 32.2 SEC (24.5-34.5); Prothrombin Time 12.8 sec (9.3-11.8)
[2024-10-17 08:21] LABS: Albumin 4.4 g/dL (3.2-4.8); Anion Gap 13 (5-15); BUN/Creatinine Ratio 14.1 (10.0-20.0); Calcium 10.3 mg/dL (8.7-10.4); Carbon Dioxide 26 mmol/L (20-31)
[2024-10-17 08:25] LABS: Chloride 93 mmol/L (98-107); Glucose 132 mg/dL (74-106); Sodium 132 mmol/L (136-145)
[2024-10-17 08:26] LABS: Alanine Aminotransferase 82 U/L (7-40); Alkaline Phosphatase 119 U/L (46-116); Aspartate Aminotransferase 44 U/L (13-40); Total Protein 8.3 g/dL (5.7-8.2)
[2024-10-17 08:27] LABS: Blood Urea Nitrogen 84 mg/dL (9-23)
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
[2024-10-17] MEDS: DOPamine 1600MCG/ML D5W 250 ML IV SCH (13:26)
--- NOTE | 2024-10-17 17:42 | DVHPN2 ---
Progress Note - Dictate Date Seen: October 17, 2024 Has the PT tested + for MRSA If YES, has PT been informed?: No Medical Necessity Reason Pt with a Central, PICC or Fol: Yes The following are medically ne: Central Line, Venegas Catheter Reason for venegas catheter: Strict I&O Subjective Patient was seen and evaluated in follow up in the ICU. No overnight events. Patient remains on 2 LPM NC. WBC 11.9, BUN 84, [employer] 5.97, AST 44, ALT 82. vital signs Vital Sign Date Time Temp Pulse Resp B/P (MAP) Pulse Ox O2 Delivery O2 Flow Rate FiO2 10/17/24 10:15 71 17 102/61 (75) 99 10/17/24 10:00 Room Air* 0 21 10/17/24 08:00 97.0 97.0 Total Intake and Output 10/16/24 10/16/24 10/17/24 15:00 23:00 07:00 Intake Total 100 ml 777.50 ml 483.75 ml Output Total 250 ml 125 ml Balance 100 ml 527.50 ml 358.75 ml medications Current Medications Medications Dose Ordered Sig/Conner Route Start Time Stop Time Status Last Admin Dose Admin Aspirin 81 mg DAILY PO 10/01/24 10:00 10/17/24 09:20 81 MG Gabapentin 300 mg HS PO 09/30/24 22:00 10/16/24 22:06 300 MG Carvedilol 6.25 mg BID PO 09/30/24 22:00 Hold 09/30/24 17:32 6.25 MG Ondansetron HCl 4 mg Q4HP PRN IV 09/30/24 15:45 Nitroglycerin 0.4 mg Q5MINP PRN SL 09/30/24 15:45 Norepinephrine Bitartrate 250 ml @ 3.75 mls/hr Q24H IV 09/30/24 20:00 10/16/24 16:37 3.75 MLS/HR Pantoprazole Sodium 40 mg DAILY IV 10/01/24 10:00 10/17/24 09:20 40 MG Acetaminophen 650 mg Q6HP PRN NG 10/01/24 02:00 10/01/24 15:00 650 MG Furosemide 80 mg BIDD IV 10/02/24 07:30 10/17/24 06:19 80 MG Docusate Sodium 100 mg DAILY GT 10/05/24 10:00 10/13/24 08:08 100 MG Diagnostic Test (Pha) 1 strip Q6HR 10/04/24 12:00 10/17/24 06:15 1 STRIP Insulin Human Regular Q6HR SC 10/04/24 12:00 10/17/24 06:46 2 UNITS Dextrose 50 ml UD PRN IV 10/04/24 12:00 Polyethylene Glycol 17 gm DAILY PO 10/11/24 10:00 10/13/24 08:08 17 GM Sennosides 8.6 mg HS PO 10/10/24 22:00 10/12/24 22:13 8.6 MG Dopamine HCl/ Dextrose 250 ml @ 5.498 mls/ hr Q24H IV 10/17/24 11:15 objective GENERAL: Alert and oriented x 3. No acute distress. EYES: PERRL, EOMI. Anicteric. HENT: Moist mucous membranes. LUNGS: Decreased air entry bilaterally. CARDIOVASCULAR: Irregular rate and rhythm. ABDOMEN: Soft, non-tender and non-distended. EXTREMITIES: No edema. SKIN: Warm, dry. laboratory and microbiology Laboratory Tests 10/17/24 07:51 Test 10/17/24 07:51 Range/Units Serum Glucose 132 H 74-106 mg/dL Problem List Chest pain. NSTEMI. Atrial Fibrillation with RVR. CIARAN. Community acquired pneumonia. Acute on chronic systolic heart failure EF 10%. DM2 with hyperglycemia. Constipation. Anxiety. Acute respiratory failure. Assessment/Plan Continued all current supportive medical care. Aspirin. Diuretics with Lasix. Vasopressors for hemodynamic support. GI prophylactics. Additional plan as per the hospital course. Critical care time of 45 minutes provided to include time spent evaluation of patient at bedside, when appropriate patient/family education for diagnosis, treatment plan, review of pertinent medical information and discussion of care with specialty providers and PCP. Dietary Evaluation Review Comments: 1) Initiate Pro-Stat @ 30 mL qd. Flush 30 mL H2O AC/PC. 2) Increase TF to 35 mL/hr goal rate. TF rate will provide 1612 kcals, 83g Pro (including Pro-Stat), and 626 mL free H2O per 24 hrs. TF rate will meet ~ 79% estimated energy needs and 75% estimated protein needs 3) Initiate vitamin C @ 500 mg bid and zinc sulfate @ 220 mg qd for 7-10 days. 4) Consider Nephro-[place] @ 1 tb qd 5) Follow-up with nephrology, cardiology, pulmonology, and clinical social work aide 6) Continue to monitor I&O, labs, and skin integrity Expected Outcomes/Goals: 1) labs to improve 2) wound to improve 3) diet to advance 4) f/u in 2-3 days Plan discussed with: Patient DESHAUN PETERSON MD October 17, 2024 11:33
--- NOTE | 2024-10-17 21:04 | DVHPN2 ---
Progress Note - Dictate Date Seen: October 17, 2024 Has the PT tested + for MRSA If YES, has PT been informed?: No Medical Necessity Reason Pt with a Central, PICC or Fol: Yes The following are medically ne: Central Line, Venegas Catheter Reason for venegas catheter: Strict I&O Subjective Patient seen and examined at bedside. Remains on supplemental oxygen Overnight events reviewed. vital signs Vital Sign Date Time Temp Pulse Resp B/P (MAP) Pulse Ox O2 Delivery O2 Flow Rate FiO2 10/17/24 18:30 66 15 115/73 (87) 100 10/17/24 18:00 Nasal Cannula* 2 28 10/17/24 16:00 98.3 98.3 Total Intake and Output 10/16/24 10/16/24 10/17/24 15:00 23:00 07:00 Intake Total 100 ml 777.50 ml 483.75 ml Output Total 250 ml 125 ml Balance 100 ml 527.50 ml 358.75 ml medications Current Medications Medications Dose Ordered Sig/Conner Route Start Time Stop Time Status Last Admin Dose Admin Aspirin 81 mg DAILY PO 10/01/24 10:00 10/17/24 09:20 81 MG Gabapentin 300 mg HS PO 09/30/24 22:00 10/16/24 22:06 300 MG Carvedilol 6.25 mg BID PO 09/30/24 22:00 Hold 09/30/24 17:32 6.25 MG Ondansetron HCl 4 mg Q4HP PRN IV 09/30/24 15:45 Nitroglycerin 0.4 mg Q5MINP PRN SL 09/30/24 15:45 Norepinephrine Bitartrate 250 ml @ 3.75 mls/hr Q24H IV 09/30/24 20:00 10/16/24 16:37 3.75 MLS/HR Pantoprazole Sodium 40 mg DAILY IV 10/01/24 10:00 10/17/24 09:20 40 MG Acetaminophen 650 mg Q6HP PRN NG 10/01/24 02:00 10/01/24 15:00 650 MG Furosemide 80 mg BIDD IV 10/02/24 07:30 10/17/24 17:16 80 MG Docusate Sodium 100 mg DAILY GT 10/05/24 10:00 10/13/24 08:08 100 MG Diagnostic Test (Pha) 1 strip Q6HR 10/04/24 12:00 10/17/24 17:16 1 STRIP Insulin Human Regular Q6HR SC 10/04/24 12:00 10/17/24 17:18 2 UNITS Dextrose 50 ml UD PRN IV 10/04/24 12:00 Polyethylene Glycol 17 gm DAILY PO 10/11/24 10:00 10/13/24 08:08 17 GM Sennosides 8.6 mg HS PO 10/10/24 22:00 10/12/24 22:13 8.6 MG Dopamine HCl/ Dextrose 250 ml @ 5.498 mls/ hr Q24H IV 10/17/24 11:15 10/17/24 13:26 5.498 MLS/HR objective Gen.: Patient lying in bed in no apparent distress. On supplemental oxygen. Head: Normocephalic, atraumatic. Eyes: EOMI/PERRLA. Ears: Normal hearing. Normal anatomy. Neck/trachea: Trachea midline, supple. Nose: Normal external anatomy. Mouth: Moist mucous membranes. Chest: Decreased air entry bilaterally. No wheezing or rhonchi. Cardiovascular: Positive S1, positive S2. Regular rate and rhythm. Abdomen: Positive bowel sounds in all 4 quadrants. Soft, non-tender, non- distended. : Deferred. Rectal: Deferred. Skin: Warm, dry. Intact. Extremities: 2+ radial pulses bilaterally. No lower extremity edema. Neuro: Awake, alert, oriented x3. No gross motor or sensory deficits. Cranial nerves II through XII intact. Gait not assessed. laboratory and microbiology Laboratory Tests 10/17/24 07:51 Test 10/17/24 07:51 Range/Units Serum Glucose 132 H 74-106 mg/dL Assessment/Plan Impression: Acute hypoxic respiratory failure Elevated troponin [id number] myocardial infarction Acute kidney injury, started on HD Syncope Cardiomyopathy EF 10% Substance abuse Events Remains on supplemental oxygen, on 2 LPM NC Patient desaturates while sleeping on 2 LPM NC On pressors for hemodynamic support On Levophed 1 mcg/min; dopamine drip 2 mcg/min Titrate to keep MAP above 65 mmHg/SBP above 90 mmHg. Head of bed elevation Aspiration precautions. Protonix for GI prophylaxis Continue antibiotics Monitor WBC - currently 11.9 K, stable. Hemodialysis per Nephrology Requires pressors while on hemodialysis Patient refused tunneled catheter Diurese w/ Lasix BID Monitor renal function Monitor electrolytes. Supplement as necessary. Monitor ins and outs. Physical therapy Labs and imaging reviewed Plan: S/p extubation on 10/14/24 Supplemental oxygen Titrate to keep O2 sats above 92% Pressors as necessary for hemodynamic support Titrate to keep mean arterial pressure greater than 65 mmHg. Blood cultures show no growth x5 days Sputum cultures grew Staph aureus, Pseudomonas aeruginosa, Klebsiella pneumoniae. Accu-Cheks, ISS. Monitor renal function Monitor electrolytes. Supplement as necessary. Monitor ins and outs. Maintain euvolemia. Echocardiogram reviewed Cardiology recs appreciated GI prophylaxis. DVT prophylaxis Prognosis: Poor given patient's multiple co-morbidities. Condition: Critical Rest of plan per hospitalist and other consultants. A total of 35 minutes of critical care time was spent reviewing the patient record, examining the patient, making a diagnostic and therapeutic plan, discussing this plan with the medical personnel, following up on diagnostic studies and following the patient for clinical stability excluding any and all procedures. At least 50% of this time was spent in direct, [id number] contact. Thank you, YOLANDA Fuller/YOLANDA Stacy, for allowing me to participate in this patient's care. Further recommendations will depend on the patient's clinical course. Please do not hesitate to contact me if you have any questions or concerns. This medical document was created using an electronic medical record system with [employer] dictation system. Although these documentations are being carefully reviewed, there may still be some phonetic and typographical changes. The errors are purely typographical, due to imperfection on the software program, and do not reflect any compromise in the patient's medical care. Dietary Evaluation Review Comments: 1) Initiate Pro-Stat @ 30 mL qd. Flush 30 mL H2O AC/PC. 2) Increase TF to 35 mL/hr goal rate. TF rate will provide 1612 kcals, 83g Pro (including Pro-Stat), and 626 mL free H2O per 24 hrs. TF rate will meet ~ 79% estimated energy needs and 75% estimated protein needs 3) Initiate vitamin C @ 500 mg bid and zinc sulfate @ 220 mg qd for 7-10 days. 4) Consider Nephro-[place] @ 1 tb qd 5) Follow-up with nephrology, cardiology, pulmonology, and social work instructor 6) Continue to monitor I&O, labs, and skin integrity Expected Outcomes/Goals: 1) labs to improve 2) wound to improve 3) diet to advance 4) f/u in 2-3 days Plan discussed with: Other (TATIANA Church) Critical Care Time(min): 35 YAW PLUNKETT MD October 17, 2024 21:04
[2024-10-18] VITALS (46 sets, daily range): BP systolic 93–136; BP diastolic 48–79; PULSE 60–89; RESP 9–22; TEMP 97–98; O2SAT 98–100
--- NOTE | 2024-10-18 09:35 | DVHPN2 ---
Progress Note Date Seen: October 18, 2024 Has the PT tested + for MRSA If YES, has PT been informed?: No Medical Necessity Reason Pt with a Central, PICC or Fol: Yes The following are medically ne: Central Line, Venegas Catheter Reason for venegas catheter: Strict I&O Subjective Patient reports: No new complaints Other Systems: Patient seen and examined by myself today in follow-up Patient examined hemodialysis, blood pressure stable Objective vital signs Vital Sign Date Time Temp Pulse Resp B/P (MAP) Pulse Ox O2 Delivery O2 Flow Rate FiO2 10/18/24 09:31 72 10/18/24 09:31 15 100 Nasal Cannula* 2 28 10/18/24 06:45 112/67 (82) 10/18/24 04:00 97.0 97.0 Total Intake and Output 10/17/24 10/17/24 10/18/24 15:00 23:00 07:00 Intake Total 609 ml 678 ml 698 ml Output Total 250 ml 350 ml Balance 609 ml 428 ml 348 ml medications Current Medications Medications Dose Ordered Sig/Conner Route Start Time Stop Time Status Last Admin Dose Admin Aspirin 81 mg DAILY PO 10/01/24 10:00 10/17/24 09:20 81 MG Gabapentin 300 mg HS PO 09/30/24 22:00 10/16/24 22:06 300 MG Carvedilol 6.25 mg BID PO 09/30/24 22:00 Hold 09/30/24 17:32 6.25 MG Ondansetron HCl 4 mg Q4HP PRN IV 09/30/24 15:45 Nitroglycerin 0.4 mg Q5MINP PRN SL 09/30/24 15:45 Norepinephrine Bitartrate 250 ml @ 3.75 mls/hr Q24H IV 09/30/24 20:00 10/16/24 16:37 3.75 MLS/HR Pantoprazole Sodium 40 mg DAILY IV 10/01/24 10:00 10/17/24 09:20 40 MG Acetaminophen 650 mg Q6HP PRN NG 10/01/24 02:00 10/01/24 15:00 650 MG Furosemide 80 mg BIDD IV 10/02/24 07:30 10/18/24 06:01 80 MG Docusate Sodium 100 mg DAILY GT 10/05/24 10:00 10/13/24 08:08 100 MG Diagnostic Test (Pha) 1 strip Q6HR 10/04/24 12:00 10/18/24 06:06 1 STRIP Insulin Human Regular Q6HR SC 10/04/24 12:00 10/18/24 06:05 2 UNITS Dextrose 50 ml UD PRN IV 10/04/24 12:00 Polyethylene Glycol 17 gm DAILY PO 10/11/24 10:00 10/13/24 08:08 17 GM Sennosides 8.6 mg HS PO 10/10/24 22:00 10/12/24 22:13 8.6 MG Dopamine HCl/ Dextrose 250 ml @ 5.498 mls/ hr Q24H IV 10/17/24 11:15 10/17/24 13:26 5.498 MLS/HR Examination: LUNGS:Normal, CVS:Normal, MSK:Normal laboratory and microbiology Laboratory Tests 10/17/24 07:51 Test 10/17/24 07:51 Range/Units Serum Glucose 132 H 74-106 mg/dL Microbiology Date/Time Source Procedure Growth Status 10/05/24 19:49 Blood Blood Culture - Final NO GROWTH AFTER 5 DAYS OF INCUBATION. Complete 10/03/24 15:40 Nose MRSA Screen - Final Complete 10/01/24 00:36 Urine - Venegas Port Urine Culture - Final Complete Problem List/Assessment/Plan Problem List/Assessment/Plan Acute kidney injury superimposed Chronic Kidney Disease secondary to hemodynamic mediated, FeNa <1% requiring intermittent hemodialysis Acute respiratory failure extubated 10/14/24 Septic shock Congestive heart failure, ejection fraction 10% Methamphetamine intoxication Hypokalemia, replaced Hyponatremia due to excess H2O Hypoglycemia Recommendations Continue with UF to 3 L as tolerated Strict I&Os Avoid nephrotoxic medications IV pressors for blood pressure support Furosemide b.i.d. as ordered Fluid restriction Low-dose dopamine IV antibiotics We will continue to follow Plan discussed with: Patient My Orders My Orders Orders - KYRIE CONTRERAS MD Procedure Category Date Status Time Dopamine 1600mcg/Ml PHA 10/17/24 In Process D5W 11:15 Hemodialysis Orders ORDERS 10/18/24 Transmitted 07:00 Dialysis Nursing ANICETO 10/18/24 In Process Message 07:00 Document Fluid Input ANICETO 10/18/24 In Process And Outpu 07:00 Dietary Evaluation Review Comments: 1) Initiate Pro-Stat @ 30 mL qd. Flush 30 mL H2O AC/PC. 2) Increase TF to 35 mL/hr goal rate. TF rate will provide 1612 kcals, 83g Pro (including Pro-Stat), and 626 mL free H2O per 24 hrs. TF rate will meet ~ 79% estimated energy needs and 75% estimated protein needs 3) Initiate vitamin C @ 500 mg bid and zinc sulfate @ 220 mg qd for 7-10 days. 4) Consider Nephro-[place] @ 1 tb qd 5) Follow-up with nephrology, cardiology, pulmonology, and psych social worker 6) Continue to monitor I&O, labs, and skin integrity Expected Outcomes/Goals: 1) labs to improve 2) wound to improve 3) diet to advance 4) f/u in 2-3 days KYRIE CONTRERAS MD October 18, 2024 09:35
--- NOTE | 2024-10-18 14:57 | DVHPN2 ---
Assessment/Plan Assessment/Plan ICU note covering on room air, not compliant with HD, discussion wether will go through with permacath and HD vs hospice. downgrade to tele physical exam AOX1 PERRLA coarse breath sounds s1 s2 RRR abdomen soft nontender trace LE edema labs ekg imaging reviewed assessment and plan Acute metabolic/toxic encephalopathy Acute hypoxic respiratory failure due to multi-organism pneumonia Septic shock due to multi-organism pneumonia Leukocytosis due to septic shock Thrombocytopenia due to septic shock ATN on HD Electrolytes imbalance in the setting of CIARAN in septic shock Acute on chronic systolic heart failure HFrEF 10% Atrial fibrillation with RVR type 2 MO demand ischemia Uncontrolled diabetes mellitus type 2 with hyperglycemia Polysubstance (alcohol, marijuana, methamphetamine, and tobacco) use disorder c/w HD per renal GOC discussion pt eefused permacath c/w rest of management diet renal dvt ppx lovenox gi ppx protonix full code condition critical prognosis poor 35 mins crit care time spent Plan discussed with: Patient, Other My Orders Orders - MICHELLE WARREN MD Procedure Category Date Status Time Transfer Orders XFER 10/18/24 Transmitted 09:52 Date of Service: October 18, 2024 Billing Provider: MICHELLE WARREN MD Common Visit Codes: [id number] CARE 30-74 MIN MICHELLE WARREN MD October 18, 2024 14:57
--- NOTE | 2024-10-18 23:11 | DVHPN2 ---
Progress Note - Dictate Date Seen: October 18, 2024 Has the PT tested + for MRSA If YES, has PT been informed?: No Medical Necessity Reason Pt with a Central, PICC or Fol: Yes The following are medically ne: Central Line, Venegas Catheter Reason for venegas catheter: Strict I&O Subjective Patient seen and examined at bedside. Remains on supplemental oxygen Overnight events reviewed. vital signs Vital Sign Date Time Temp Pulse Resp B/P (MAP) Pulse Ox O2 Delivery O2 Flow Rate FiO2 10/18/24 21:00 97.5 80 17 108/62 (77) 100 97.5 10/18/24 20:00 Nasal Cannula* 2 28 Total Intake and Output 10/17/24 10/17/24 10/18/24 15:00 23:00 07:00 Intake Total 609 ml 678 ml 698 ml Output Total 250 ml 350 ml Balance 609 ml 428 ml 348 ml medications Current Medications Medications Dose Ordered Sig/Conner Route Start Time Stop Time Status Last Admin Dose Admin Aspirin 81 mg DAILY PO 10/01/24 10:00 10/17/24 09:20 81 MG Gabapentin 300 mg HS PO 09/30/24 22:00 10/18/24 21:17 300 MG Carvedilol 6.25 mg BID PO 09/30/24 22:00 Hold 09/30/24 17:32 6.25 MG Ondansetron HCl 4 mg Q4HP PRN IV 09/30/24 15:45 Nitroglycerin 0.4 mg Q5MINP PRN SL 09/30/24 15:45 Norepinephrine Bitartrate 250 ml @ 3.75 mls/hr Q24H IV 09/30/24 20:00 10/16/24 16:37 3.75 MLS/HR Pantoprazole Sodium 40 mg DAILY IV 10/01/24 10:00 10/17/24 09:20 40 MG Acetaminophen 650 mg Q6HP PRN NG 10/01/24 02:00 10/01/24 15:00 650 MG Furosemide 80 mg BIDD IV 10/02/24 07:30 10/18/24 18:52 80 MG Docusate Sodium 100 mg DAILY GT 10/05/24 10:00 10/13/24 08:08 100 MG Diagnostic Test (Pha) 1 strip Q6HR 10/04/24 12:00 10/18/24 18:00 1 STRIP Insulin Human Regular Q6HR SC 10/04/24 12:00 10/18/24 19:01 3 UNITS Dextrose 50 ml UD PRN IV 10/04/24 12:00 Polyethylene Glycol 17 gm DAILY PO 10/11/24 10:00 10/13/24 08:08 17 GM Sennosides 8.6 mg HS PO 10/10/24 22:00 10/18/24 21:16 8.6 MG Dopamine HCl/ Dextrose 250 ml @ 5.498 mls/ hr Q24H IV 10/17/24 11:15 10/17/24 13:26 5.498 MLS/HR objective Gen.: Patient lying in bed in no apparent distress. On supplemental oxygen. Head: Normocephalic, atraumatic. Eyes: EOMI/PERRLA. Ears: Normal hearing. Normal anatomy. Neck/trachea: Trachea midline, supple. Nose: Normal external anatomy. Mouth: Moist mucous membranes. Chest: Decreased air entry bilaterally. No wheezing or rhonchi. Cardiovascular: Positive S1, positive S2. Regular rate and rhythm. Abdomen: Positive bowel sounds in all 4 quadrants. Soft, non-tender, non- distended. : Deferred. Rectal: Deferred. Skin: Warm, dry. Intact. Extremities: 2+ radial pulses bilaterally. No lower extremity edema. Neuro: Awake, alert, oriented x3. No gross motor or sensory deficits. Cranial nerves II through XII intact. Gait not assessed. laboratory and microbiology Laboratory Tests 10/17/24 07:51 Test 10/17/24 07:51 Range/Units Serum Glucose 132 H 74-106 mg/dL Assessment/Plan Impression: Acute hypoxic respiratory failure Elevated troponin [id number] myocardial infarction Acute kidney injury, started on HD Syncope Cardiomyopathy EF 10% Substance abuse Events Remains on supplemental oxygen, on 2 LPM NC Taper O2 as tolerated On dopamine drip 2 mcg/min fixed dose for renal perfusion Head of bed elevation Aspiration precautions. Protonix for GI prophylaxis Continue antibiotics Hemodialysis per Nephrology Requires pressors while on hemodialysis Diurese w/ Lasix BID Monitor renal function Monitor electrolytes. Supplement as necessary. Monitor ins and outs. Accu-Cheks, ISS Physical therapy Patient is stable for downgrade from the pulmonary standpoint. Labs and imaging reviewed Plan: S/p extubation on 10/14/24 Supplemental oxygen Titrate to keep O2 sats above 92% On dopamine drip 2 mcg/min for renal perfusion Blood cultures show no growth x5 days Sputum cultures grew Staph aureus, Pseudomonas aeruginosa, Klebsiella pneumoniae. Accu-Cheks, ISS. Monitor renal function Monitor electrolytes. Supplement as necessary. Monitor ins and outs. Maintain euvolemia. Echocardiogram reviewed Cardiology recs appreciated GI prophylaxis. DVT prophylaxis Prognosis: Poor given patient's multiple co-morbidities. Rest of plan per hospitalist and other consultants. Thank you, YOLANDA Fuller/YOLANDA Stacy, for allowing me to participate in this patient's care. Further recommendations will depend on the patient's clinical course. Please do not hesitate to contact me if you have any questions or concerns. This medical document was created using an electronic medical record system with [employer] dictation system. Although these documentations are being carefully reviewed, there may still be some phonetic and typographical changes. The errors are purely typographical, due to imperfection on the software program, and do not reflect any compromise in the patient's medical care. Dietary Evaluation Review Comments: 1) Initiate Pro-Stat @ 30 mL qd. Flush 30 mL H2O AC/PC. 2) Increase TF to 35 mL/hr goal rate. TF rate will provide 1612 kcals, 83g Pro (including Pro-Stat), and 626 mL free H2O per 24 hrs. TF rate will meet ~ 79% estimated energy needs and 75% estimated protein needs 3) Initiate vitamin C @ 500 mg bid and zinc sulfate @ 220 mg qd for 7-10 days. 4) Consider Nephro-[place] @ 1 tb qd 5) Follow-up with nephrology, cardiology, pulmonology, and social work supervisor 6) Continue to monitor I&O, labs, and skin integrity Expected Outcomes/Goals: 1) labs to improve 2) wound to improve 3) diet to advance 4) f/u in 2-3 days Plan discussed with: Patient, Other (TATIANA Allen) YAW PLUNKETT MD October 18, 2024 23:11
--- NOTE | 2024-10-18 23:56 | DVHPN2 ---
Progress Note - Dictate Date Seen: October 18, 2024 Has the PT tested + for MRSA If YES, has PT been informed?: No Medical Necessity Reason Pt with a Central, PICC or Fol: Yes The following are medically ne: Central Line, Venegas Catheter Reason for venegas catheter: Strict I&O Subjective Patient was seen and evaluated in follow up in the ICU. Patient is stable on 2 LPM NC. Patient refused to complete entire HD session this morning, only 464 ml fluid was removed. Pending downgrade to [facility] bed. vital signs Vital Sign Date Time Temp Pulse Resp B/P (MAP) Pulse Ox O2 Delivery O2 Flow Rate FiO2 10/18/24 12:00 70 14 100 10/18/24 11:58 Nasal Cannula* 2 28 10/18/24 08:00 97.8 97.8 Total Intake and Output 10/17/24 10/17/24 10/18/24 14:59 22:59 06:59 Intake Total 603 ml 678 ml 698 ml Output Total 250 ml 350 ml Balance 603 ml 428 ml 348 ml medications Current Medications Medications Dose Ordered Sig/Conner Route Start Time Stop Time Status Last Admin Dose Admin Aspirin 81 mg DAILY PO 10/01/24 10:00 10/17/24 09:20 81 MG Gabapentin 300 mg HS PO 09/30/24 22:00 10/16/24 22:06 300 MG Carvedilol 6.25 mg BID PO 09/30/24 22:00 Hold 09/30/24 17:32 6.25 MG Ondansetron HCl 4 mg Q4HP PRN IV 09/30/24 15:45 Nitroglycerin 0.4 mg Q5MINP PRN SL 09/30/24 15:45 Norepinephrine Bitartrate 250 ml @ 3.75 mls/hr Q24H IV 09/30/24 20:00 10/16/24 16:37 3.75 MLS/HR Pantoprazole Sodium 40 mg DAILY IV 10/01/24 10:00 10/17/24 09:20 40 MG Acetaminophen 650 mg Q6HP PRN NG 10/01/24 02:00 10/01/24 15:00 650 MG Furosemide 80 mg BIDD IV 10/02/24 07:30 10/18/24 06:01 80 MG Docusate Sodium 100 mg DAILY GT 10/05/24 10:00 10/13/24 08:08 100 MG Diagnostic Test (Pha) 1 strip Q6HR 10/04/24 12:00 10/18/24 06:06 1 STRIP Insulin Human Regular Q6HR SC 10/04/24 12:00 10/18/24 06:05 2 UNITS Dextrose 50 ml UD PRN IV 10/04/24 12:00 Polyethylene Glycol 17 gm DAILY PO 10/11/24 10:00 10/13/24 08:08 17 GM Sennosides 8.6 mg HS PO 10/10/24 22:00 10/12/24 22:13 8.6 MG Dopamine HCl/ Dextrose 250 ml @ 5.498 mls/ hr Q24H IV 10/17/24 11:15 10/17/24 13:26 5.498 MLS/HR objective GENERAL: Alert and oriented x 3. No acute distress. EYES: PERRL, EOMI. Anicteric. HENT: Moist mucous membranes. LUNGS: Decreased air entry bilaterally. CARDIOVASCULAR: Irregular rate and rhythm. ABDOMEN: Soft, non-tender and non-distended. EXTREMITIES: No edema. SKIN: Warm, dry. laboratory and microbiology Laboratory Tests 10/17/24 07:51 Test 10/17/24 07:51 Range/Units Serum Glucose 132 H 74-106 mg/dL Problem List Chest pain. NSTEMI. Atrial Fibrillation with RVR. CIARAN. Community acquired pneumonia. Acute on chronic systolic heart failure EF 10%. DM2 with hyperglycemia. Constipation. Anxiety. Acute respiratory failure. Assessment/Plan Continued all current supportive medical care. Aspirin. Diuretics with Lasix. Vasopressors for hemodynamic support. GI prophylactics. Additional plan as per the hospital course. Critical care time of 45 minutes provided to include time spent evaluation of patient at bedside, when appropriate patient/family education for diagnosis, treatment plan, review of pertinent medical information and discussion of care with specialty providers and PCP. Dietary Evaluation Review Comments: 1) Initiate Pro-Stat @ 30 mL qd. Flush 30 mL H2O AC/PC. 2) Increase TF to 35 mL/hr goal rate. TF rate will provide 1612 kcals, 83g Pro (including Pro-Stat), and 626 mL free H2O per 24 hrs. TF rate will meet ~ 79% estimated energy needs and 75% estimated protein needs 3) Initiate vitamin C @ 500 mg bid and zinc sulfate @ 220 mg qd for 7-10 days. 4) Consider Nephro-[place] @ 1 tb qd 5) Follow-up with nephrology, cardiology, pulmonology, and social service director 6) Continue to monitor I&O, labs, and skin integrity Expected Outcomes/Goals: 1) labs to improve 2) wound to improve 3) diet to advance 4) f/u in 2-3 days Plan discussed with: Patient DESHAUN PETERSON MD October 18, 2024 13:10
[2024-10-19] MEDS: LORazepam 2MG/ML-1ML VIAL IV PRN (01:18)
[2024-10-19 05:00] VITALS: BP 114/69; PULSE 72; RESP 17; TEMP 97.3; O2SAT 96
[2024-10-19 08:05] VITALS: PULSE 68
[2024-10-19 09:00] VITALS: BP 114/65; PULSE 73; RESP 18; TEMP 97.6; O2SAT 97
--- NOTE | 2024-10-19 09:30 | DVHPN2 ---
Progress Note Date Seen: October 19, 2024 Has the PT tested + for MRSA If YES, has PT been informed?: No Medical Necessity Reason Pt with a Central, PICC or Fol: Yes The following are medically ne: Central Line, Venegas Catheter Reason for venegas catheter: Strict I&O Subjective Patient reports: No new complaints Other Systems: Patient seen and examined by myself today in follow-up Objective vital signs Vital Sign Date Time Temp Pulse Resp B/P (MAP) Pulse Ox O2 Delivery O2 Flow Rate FiO2 10/19/24 08:05 Nasal Cannula* 2 28 10/19/24 06:00 114/69 10/19/24 05:00 97.3 72 17 96 97.3 Total Intake and Output 10/18/24 10/18/24 10/19/24 15:00 23:00 07:00 Intake Total 343.984 ml 0 ml 900 ml Output Total 600 ml 800 ml Balance 343.984 ml -600 ml 100 ml medications Current Medications Medications Dose Ordered Sig/Conner Route Start Time Stop Time Status Last Admin Dose Admin Aspirin 81 mg DAILY PO 10/01/24 10:00 10/17/24 09:20 81 MG Gabapentin 300 mg HS PO 09/30/24 22:00 10/18/24 21:17 300 MG Carvedilol 6.25 mg BID PO 09/30/24 22:00 Hold 09/30/24 17:32 6.25 MG Ondansetron HCl 4 mg Q4HP PRN IV 09/30/24 15:45 Nitroglycerin 0.4 mg Q5MINP PRN SL 09/30/24 15:45 Norepinephrine Bitartrate 250 ml @ 3.75 mls/hr Q24H IV 09/30/24 20:00 10/16/24 16:37 3.75 MLS/HR Pantoprazole Sodium 40 mg DAILY IV 10/01/24 10:00 10/17/24 09:20 40 MG Acetaminophen 650 mg Q6HP PRN NG 10/01/24 02:00 10/01/24 15:00 650 MG Furosemide 80 mg BIDD IV 10/02/24 07:30 10/18/24 18:52 80 MG Docusate Sodium 100 mg DAILY GT 10/05/24 10:00 10/13/24 08:08 100 MG Diagnostic Test (Pha) 1 strip Q6HR 10/04/24 12:00 10/19/24 06:23 1 STRIP Insulin Human Regular Q6HR SC 10/04/24 12:00 10/18/24 23:41 2 UNITS Dextrose 50 ml UD PRN IV 10/04/24 12:00 Polyethylene Glycol 17 gm DAILY PO 10/11/24 10:00 10/13/24 08:08 17 GM Sennosides 8.6 mg HS PO 10/10/24 22:00 10/18/24 21:16 8.6 MG Dopamine HCl/ Dextrose 250 ml @ 5.498 mls/ hr Q24H IV 10/17/24 11:15 10/17/24 13:26 5.498 MLS/HR Lorazepam 1 mg Q8HP PRN IV 10/19/24 01:15 Examination: LUNGS:Normal, CVS:Normal, MSK:Normal laboratory and microbiology Laboratory Tests 10/17/24 07:51 Test 10/17/24 07:51 Range/Units Serum Glucose 132 H 74-106 mg/dL Microbiology Date/Time Source Procedure Growth Status 10/05/24 19:49 Blood Blood Culture - Final NO GROWTH AFTER 5 DAYS OF INCUBATION. Complete 10/03/24 15:40 Nose MRSA Screen - Final Complete 10/01/24 00:36 Urine - [place] Urine Culture - Final Complete Problem List/Assessment/Plan Problem List/Assessment/Plan Acute kidney injury superimposed Chronic Kidney Disease stage IIIA secondary to hemodynamic mediated, FeNa <1% requiring intermittent hemodialysis Acute respiratory failure extubated 10/14/24 Septic shock Congestive heart failure, ejection fraction 10% Methamphetamine intoxication Hypokalemia, replaced Hyponatremia due to excess H2O Hypoglycemia Recommendations Next hemodialysis 10/21 Strict I&Os Avoid nephrotoxic medications IV pressors for blood pressure support Furosemide b.i.d. as ordered Fluid restriction Low-dose dopamine IV antibiotics We will continue to follow Plan discussed with: Patient Dietary Evaluation Review Comments: 1) Initiate Pro-Stat @ 30 mL qd. Flush 30 mL H2O AC/PC. 2) Increase TF to 35 mL/hr goal rate. TF rate will provide 1612 kcals, 83g Pro (including Pro-Stat), and 626 mL free H2O per 24 hrs. TF rate will meet ~ 79% estimated energy needs and 75% estimated protein needs 3) Initiate vitamin C @ 500 mg bid and zinc sulfate @ 220 mg qd for 7-10 days. 4) Consider Nephro-[place] @ 1 tb qd 5) Follow-up with nephrology, cardiology, pulmonology, and social staff worker 6) Continue to monitor I&O, labs, and skin integrity Expected Outcomes/Goals: 1) labs to improve 2) wound to improve 3) diet to advance 4) f/u in 2-3 days KYRIE CONTRERAS MD October 19, 2024 09:30
[2024-10-19 13:15] LABS: Basophils # (auto) 0.1 10 ^3/uL (0-0.2); Basophils % (auto) 0.9 % (0.0-2.0); Eosinophils # (auto) 0.6 10 ^3/uL (0-0.8); Hematocrit 44.2 % (41.0-53.0); Hemoglobin 14.9 g/dL (13.5-17.5); Lymphocytes # (auto) 0.7 10 ^3/uL (0.4-5.4); Lymphocytes % (auto) 6.4 % (10.0-50.0); Mean Corpuscular Hemoglobin 32.9 pg (28.0-32.0); Mean Corpuscular Hgb Conc. 33.7 g/dL (32.0-36.0); Mean Corpuscular Volume 97.7 fL (80.0-100.0); Monocytes # (auto) 1.6 10 ^3/uL (0-1.3); Monocytes % (auto) 15.3 % (0.0-12.0); Neutrophils # (auto) 7.5 10 ^3/uL (1.6-8.6); Neutrophils % (auto) 71.4 % (37.0-80.0); Nucleated Red Blood Cells % 0.1 %; Platelet Count (auto) 147 10^3/uL (140-450); Red Blood Cells 4.52 10^6/uL (4.5-5.90); Red Cell Distribution Width 15.1 % (11.8-14.3); White Blood Cell 10.5 10^3/uL (4.4-10.8)
[2024-10-19 13:21] LABS: Anion Gap 12 (5-15); Carbon Dioxide 26 mmol/L (20-31); Potassium 3.5 mmol/L (3.5-5.1)
[2024-10-19 13:22] LABS: Calcium 10.2 mg/dL (8.7-10.4)
[2024-10-19 13:24] LABS: Chloride 96 mmol/L (98-107); Sodium 134 mmol/L (136-145)
[2024-10-19 13:27] LABS: BUN/Creatinine Ratio 23.3 (10.0-20.0); Magnesium 2.1 mg/dL (1.6-2.6)
[2024-10-19 13:28] LABS: Glucose 141 mg/dL (74-106)
[2024-10-19 13:29] LABS: Blood Urea Nitrogen 89 mg/dL (9-23)
[2024-10-19 13:30] LABS: Phosphorus 6.3 mg/dL (2.4-5.1)
--- NOTE | 2024-10-19 17:42 | DVHPN2 ---
Subjective c/w hd per renal. if still not going for routine HD, likely will resume family discussion for comfortcare Reviewed: Care Plan, H&P, Labs, Medications, Previous Orders, Radiology, Other (Consultations) Changes from previous H/P or p: No Changes General: Per HPI Objective Vitals Vital Signs Date Time Temp Pulse Resp B/P (MAP) Pulse Ox O2 Delivery O2 Flow Rate FiO2 10/19/24 12:22 114/65 10/19/24 09:00 97.6 73 18 97 97.6 10/19/24 08:05 Nasal Cannula* 2 28 Intake/Output Intake and Output 10/19/24 07:00 Intake Total 1243.984 ml Output Total 1400 ml Balance -156.016 ml Intake Oral 1200 ml IV Total 43.984 ml Output Urine Total 1400 ml # Voids 2 General Appearance: Alert, Oriented X3, Cooperative, mild distress, Other HEENT: Atraumatic, PERRLA Lungs: Clear to auscultation, Normal air movement Cardiovascular: Normal S1, Normal S2, Other (Irregularly irregular) Abdomen: Soft Genitourinary: Other (Inman's catheter) Musculoskeletal: Other (Motor removed) Extremities: Other (Dusky lower extremities) Neuro: Other (Intubated and sedated) Skin: Dry, Intact Psych/Mental Status: Other (Intubated and sedated) Medications Current Medications Medications Dose Ordered Sig/Conner Route Start Time Stop Time Status Last Admin Dose Admin Aspirin 81 mg DAILY PO 10/01/24 10:00 10/19/24 10:00 81 MG Gabapentin 300 mg HS PO 09/30/24 22:00 10/18/24 21:17 300 MG Carvedilol 6.25 mg BID PO 09/30/24 22:00 Hold 09/30/24 17:32 6.25 MG Ondansetron HCl 4 mg Q4HP PRN IV 09/30/24 15:45 Nitroglycerin 0.4 mg Q5MINP PRN SL 09/30/24 15:45 Norepinephrine Bitartrate 250 ml @ 3.75 mls/hr Q24H IV 09/30/24 20:00 10/16/24 16:37 3.75 MLS/HR Pantoprazole Sodium 40 mg DAILY IV 10/01/24 10:00 10/19/24 10:00 40 MG Acetaminophen 650 mg Q6HP PRN NG 10/01/24 02:00 10/01/24 15:00 650 MG Furosemide 80 mg BIDD IV 10/02/24 07:30 10/18/24 18:52 80 MG Docusate Sodium 100 mg DAILY GT 10/05/24 10:00 10/13/24 08:08 100 MG Diagnostic Test (Pha) 1 strip Q6HR 10/04/24 12:00 10/19/24 06:23 1 STRIP Insulin Human Regular Q6HR SC 10/04/24 12:00 10/18/24 23:41 2 UNITS Dextrose 50 ml UD PRN IV 10/04/24 12:00 Polyethylene Glycol 17 gm DAILY PO 10/11/24 10:00 10/13/24 08:08 17 GM Sennosides 8.6 mg HS PO 10/10/24 22:00 10/18/24 21:16 8.6 MG Dopamine HCl/ Dextrose 250 ml @ 5.498 mls/ hr Q24H IV 10/17/24 11:15 10/19/24 12:22 5.498 MLS/HR Lorazepam 1 mg Q8HP PRN IV 10/19/24 01:15 Laboratory Results Laboratory Tests 10/19/24 12:55 Chemistry Test 10/19/24 12:55 Calcium Level 10.2 mg/dL (8.7-10.4) Magnesium Level 2.1 mg/dL (1.6-2.6) Phosphorus Level 6.3 mg/dL (2.4-5.1) H Urinalysis Test 10/01/24 00:36 Urine Creatinine 241.60 mg/dL (30.0-125.0) H Urine Sodium 35 mmol/L (40-220) L Microbiology Microbiology Date/Time Source Procedure Growth Status 10/05/24 19:49 Blood Blood Culture - Final NO GROWTH AFTER 5 DAYS OF INCUBATION. Complete 10/03/24 15:40 Nose MRSA Screen - Final Complete 10/01/24 00:36 Urine - [place] Urine Culture - Final Complete Assessment/Plan Assessment/Plan ICU note covering on room air, not compliant with HD, discussion wether will go through with permacath and HD vs hospice. downgrade to tele physical exam AOX1 PERRLA coarse breath sounds s1 s2 RRR abdomen soft nontender trace LE edema labs ekg imaging reviewed assessment and plan Acute metabolic/toxic encephalopathy Acute hypoxic respiratory failure due to multi-organism pneumonia Septic shock due to multi-organism pneumonia Leukocytosis due to septic shock Thrombocytopenia due to septic shock ATN on HD Electrolytes imbalance in the setting of CIARAN in septic shock Acute on chronic systolic heart failure HFrEF 10% Atrial fibrillation with RVR type 2 DE demand ischemia Uncontrolled diabetes mellitus type 2 with hyperglycemia Polysubstance (alcohol, marijuana, methamphetamine, and tobacco) use disorder c/w HD per renal GOC discussion pt eefused permacath c/w rest of management diet renal dvt ppx lovenox gi ppx protonix full code condition critical prognosis poor 35 mins crit care time spent Plan discussed with: Other Date of Service: October 19, 2024 Billing Provider: MICHELLE WARREN MD Common Visit Codes: [id number] INP/OBS CARE(HIGH) MICHELLE WARREN MD October 19, 2024 17:42
[2024-10-19 20:00] VITALS: PULSE 77
--- NOTE | 2024-10-19 22:56 | DVHPN2 ---
Progress Note - Dictate Date Seen: October 19, 2024 Has the PT tested + for MRSA If YES, has PT been informed?: No Medical Necessity Reason Pt with a Central, PICC or Fol: Yes The following are medically ne: Central Line, Venegas Catheter Reason for venegas catheter: Strict I&O Subjective Patient was seen and evaluated in follow-up. Patient was downgraded to telemetry. Patient is agitated and combative toward nursing staff. Patient is refusing HD and wound care. BUN 89, SLEEP LAB TECHNICIAN 3.82. Telemetry reviewed. vital signs Vital Sign Date Time Temp Pulse Resp B/P (MAP) Pulse Ox O2 Delivery O2 Flow Rate FiO2 10/19/24 12:22 114/65 10/19/24 09:00 97.6 73 18 97 97.6 10/19/24 08:05 Nasal Cannula* 2 28 Total Intake and Output 10/18/24 10/18/24 10/19/24 15:00 23:00 07:00 Intake Total 343.984 ml 0 ml 900 ml Output Total 600 ml 800 ml Balance 343.984 ml -600 ml 100 ml medications Current Medications Medications Dose Ordered Sig/Conner Route Start Time Stop Time Status Last Admin Dose Admin Aspirin 81 mg DAILY PO 10/01/24 10:00 10/19/24 10:00 81 MG Gabapentin 300 mg HS PO 09/30/24 22:00 10/18/24 21:17 300 MG Carvedilol 6.25 mg BID PO 09/30/24 22:00 Hold 09/30/24 17:32 6.25 MG Ondansetron HCl 4 mg Q4HP PRN IV 09/30/24 15:45 Nitroglycerin 0.4 mg Q5MINP PRN SL 09/30/24 15:45 Norepinephrine Bitartrate 250 ml @ 3.75 mls/hr Q24H IV 09/30/24 20:00 10/16/24 16:37 3.75 MLS/HR Pantoprazole Sodium 40 mg DAILY IV 10/01/24 10:00 10/19/24 10:00 40 MG Acetaminophen 650 mg Q6HP PRN NG 10/01/24 02:00 10/01/24 15:00 650 MG Furosemide 80 mg BIDD IV 10/02/24 07:30 10/18/24 18:52 80 MG Docusate Sodium 100 mg DAILY GT 10/05/24 10:00 10/13/24 08:08 100 MG Diagnostic Test (Pha) 1 strip Q6HR 10/04/24 12:00 10/19/24 06:23 1 STRIP Insulin Human Regular Q6HR SC 10/04/24 12:00 10/18/24 23:41 2 UNITS Dextrose 50 ml UD PRN IV 10/04/24 12:00 Polyethylene Glycol 17 gm DAILY PO 10/11/24 10:00 10/13/24 08:08 17 GM Sennosides 8.6 mg HS PO 10/10/24 22:00 10/18/24 21:16 8.6 MG Dopamine HCl/ Dextrose 250 ml @ 5.498 mls/ hr Q24H IV 10/17/24 11:15 10/19/24 12:22 5.498 MLS/HR Lorazepam 1 mg Q8HP PRN IV 10/19/24 01:15 objective GENERAL: Alert and oriented x 3. No acute distress. EYES: PERRL, EOMI. Anicteric. HENT: Moist mucous membranes. LUNGS: Decreased air entry bilaterally. CARDIOVASCULAR: Irregular rate and rhythm. ABDOMEN: Soft, non-tender and non-distended. EXTREMITIES: No edema. SKIN: Warm, dry. laboratory and microbiology Laboratory Tests 10/19/24 12:55 Test 10/19/24 12:55 Range/Units Serum Glucose 141 H 74-106 mg/dL Problem List Chest pain. NSTEMI. Atrial Fibrillation with RVR. CIARAN. Community acquired pneumonia. Acute on chronic systolic heart failure EF 10%. DM2 with hyperglycemia. Constipation. Anxiety. Acute respiratory failure. Assessment/Plan Continued all current supportive medical care. Aspirin. Diuretics with Lasix. GI prophylactics. Additional plan as per the hospital course. Dietary Evaluation Review Comments: 1) Initiate Pro-Stat @ 30 mL qd. Flush 30 mL H2O AC/PC. 2) Increase TF to 35 mL/hr goal rate. TF rate will provide 1612 kcals, 83g Pro (including Pro-Stat), and 626 mL free H2O per 24 hrs. TF rate will meet ~ 79% estimated energy needs and 75% estimated protein needs 3) Initiate vitamin C @ 500 mg bid and zinc sulfate @ 220 mg qd for 7-10 days. 4) Consider Nephro-[place] @ 1 tb qd 5) Follow-up with nephrology, cardiology, pulmonology, and certified social workers in health care 6) Continue to monitor I&O, labs, and skin integrity Expected Outcomes/Goals: 1) labs to improve 2) wound to improve 3) diet to advance 4) f/u in 2-3 days Plan discussed with: Patient EDSHAUN PETERSON MD October 19, 2024 15:26
--- NOTE | 2024-10-19 23:01 | DVHPN2 ---
Progress Note - Dictate Date Seen: October 19, 2024 Has the PT tested + for MRSA If YES, has PT been informed?: No Medical Necessity Reason Pt with a Central, PICC or Fol: Yes The following are medically ne: Central Line, Venegas Catheter Reason for venegas catheter: Strict I&O Subjective Patient seen and examined at bedside. Remains on supplemental oxygen Overnight events reviewed. vital signs Vital Sign Date Time Temp Pulse Resp B/P (MAP) Pulse Ox O2 Delivery O2 Flow Rate FiO2 10/19/24 20:00 Nasal Cannula* 2 28 10/19/24 18:00 115/68 10/19/24 09:00 97.6 73 18 97 97.6 Total Intake and Output 10/18/24 10/18/24 10/19/24 15:00 23:00 07:00 Intake Total 343.984 ml 0 ml 900 ml Output Total 600 ml 800 ml Balance 343.984 ml -600 ml 100 ml medications Current Medications Medications Dose Ordered Sig/Conner Route Start Time Stop Time Status Last Admin Dose Admin Aspirin 81 mg DAILY PO 10/01/24 10:00 10/19/24 10:00 81 MG Gabapentin 300 mg HS PO 09/30/24 22:00 10/18/24 21:17 300 MG Carvedilol 6.25 mg BID PO 09/30/24 22:00 Hold 09/30/24 17:32 6.25 MG Ondansetron HCl 4 mg Q4HP PRN IV 09/30/24 15:45 Nitroglycerin 0.4 mg Q5MINP PRN SL 09/30/24 15:45 Norepinephrine Bitartrate 250 ml @ 3.75 mls/hr Q24H IV 09/30/24 20:00 10/16/24 16:37 3.75 MLS/HR Pantoprazole Sodium 40 mg DAILY IV 10/01/24 10:00 10/19/24 10:00 40 MG Acetaminophen 650 mg Q6HP PRN NG 10/01/24 02:00 10/01/24 15:00 650 MG Furosemide 80 mg BIDD IV 10/02/24 07:30 10/18/24 18:52 80 MG Docusate Sodium 100 mg DAILY GT 10/05/24 10:00 10/13/24 08:08 100 MG Diagnostic Test (Pha) 1 strip Q6HR 10/04/24 12:00 10/19/24 18:00 1 STRIP Insulin Human Regular Q6HR SC 10/04/24 12:00 10/18/24 23:41 2 UNITS Dextrose 50 ml UD PRN IV 10/04/24 12:00 Polyethylene Glycol 17 gm DAILY PO 10/11/24 10:00 10/13/24 08:08 17 GM Sennosides 8.6 mg HS PO 10/10/24 22:00 10/18/24 21:16 8.6 MG Dopamine HCl/ Dextrose 250 ml @ 5.498 mls/ hr Q24H IV 10/17/24 11:15 10/19/24 12:22 5.498 MLS/HR Lorazepam 1 mg Q8HP PRN IV 10/19/24 01:15 objective Gen.: Patient lying in bed in no apparent distress. On supplemental oxygen. Head: Normocephalic, atraumatic. Eyes: EOMI/PERRLA. Ears: Normal hearing. Normal anatomy. Neck/trachea: Trachea midline, supple. Nose: Normal external anatomy. Mouth: Moist mucous membranes. Chest: Decreased air entry bilaterally. No wheezing or rhonchi. Cardiovascular: Positive S1, positive S2. Regular rate and rhythm. Abdomen: Positive bowel sounds in all 4 quadrants. Soft, non-tender, non- distended. : Deferred. Rectal: Deferred. Skin: Warm, dry. Intact. Extremities: 2+ radial pulses bilaterally. No lower extremity edema. Neuro: Awake, alert, oriented x3. No gross motor or sensory deficits. Cranial nerves II through XII intact. Gait not assessed. laboratory and microbiology Laboratory Tests 10/19/24 12:55 Test 10/19/24 12:55 Range/Units Serum Glucose 141 H 74-106 mg/dL Assessment/Plan Impression: Acute hypoxic respiratory failure Elevated troponin [id number] myocardial infarction Acute kidney injury, started on HD Syncope Cardiomyopathy EF 10% Substance abuse Events Remains on supplemental oxygen, on 3 LPM NC Taper O2 as tolerated On dopamine drip 2 mcg/min fixed dose for renal perfusion Head of bed elevation Aspiration precautions. Protonix for GI prophylaxis Continue antibiotics IS. Pain control Avoid oversedation Hemodialysis per Nephrology Requires pressors while on hemodialysis Monitor renal function Monitor electrolytes. Supplement as necessary. Monitor ins and outs. Wound care Accu-Cheks, ISS Physical therapy Labs and imaging reviewed Plan: S/p extubation on 10/14/24 Supplemental oxygen Titrate to keep O2 sats above 92% On dopamine drip 2 mcg/min for renal perfusion Blood cultures show no growth x5 days Sputum cultures grew Staph aureus, Pseudomonas aeruginosa, Klebsiella pneumoniae. Accu-Cheks, ISS. Monitor renal function Monitor electrolytes. Supplement as necessary. Monitor ins and outs. Maintain euvolemia. Echocardiogram reviewed Cardiology recs appreciated GI prophylaxis. DVT prophylaxis Prognosis: Poor given patient's multiple co-morbidities. Rest of plan per hospitalist and other consultants. Thank you, YOLANDA Fuller/YOLANDA Stacy, for allowing me to participate in this patient's care. Further recommendations will depend on the patient's clinical course. Please do not hesitate to contact me if you have any questions or concerns. This medical document was created using an electronic medical record system with [employer] system. Although these documentations are being carefully reviewed, there may still be some phonetic and typographical changes. The errors are purely typographical, due to imperfection on the software program, and do not reflect any compromise in the patient's medical care. Dietary Evaluation Review Comments: 1) Initiate Pro-Stat @ 30 mL qd. Flush 30 mL H2O AC/PC. 2) Increase TF to 35 mL/hr goal rate. TF rate will provide 1612 kcals, 83g Pro (including Pro-Stat), and 626 mL free H2O per 24 hrs. TF rate will meet ~ 79% estimated energy needs and 75% estimated protein needs 3) Initiate vitamin C @ 500 mg bid and zinc sulfate @ 220 mg qd for 7-10 days. 4) Consider Nephro-[place] @ 1 tb qd 5) Follow-up with nephrology, cardiology, pulmonology, and social security assessor 6) Continue to monitor I&O, labs, and skin integrity Expected Outcomes/Goals: 1) labs to improve 2) wound to improve 3) diet to advance 4) f/u in 2-3 days Plan discussed with: Patient, Other (TATIANA Justin) YAW PLUNKETT MD October 19, 2024 23:01
[2024-10-20 09:00] VITALS: BP 137/77; PULSE 65; RESP 18; TEMP 96.4; O2SAT 99
[2024-10-20 13:00] VITALS: BP 108/64; PULSE 72; RESP 18; TEMP 97.1; O2SAT 99
--- NOTE | 2024-10-20 15:34 | DVHPN2 ---
Subjective Patient denies any symptoms. Reviewed: Care Plan, H&P, Labs, Medications, Previous Orders, Radiology, Other (Consultations) Changes from previous H/P or p: No Changes General: Per HPI Objective Vitals Vital Signs Date Time Temp Pulse Resp B/P (MAP) Pulse Ox O2 Delivery O2 Flow Rate FiO2 10/20/24 13:00 97.1 72 18 108/64 (79) 99 97.1 10/20/24 08:00 Nasal Cannula* 2 28 Intake/Output Intake and Output 10/20/24 07:00 Intake Total 1460 ml Output Total 1850 ml Balance -390 ml Intake Oral 1460 ml Output Urine Total 950 ml Stool Total 900 ml # Bowel Movements 3 General Appearance: Alert, Oriented X3, Cooperative, mild distress, Other HEENT: Atraumatic, PERRLA Lungs: Clear to auscultation, Normal air movement Cardiovascular: Normal S1, Normal S2, Other (Irregularly irregular) Abdomen: Soft Genitourinary: Other (Inman's catheter) Musculoskeletal: Other (Motor removed) Extremities: Other (Dusky lower extremities) Neuro: Other (Intubated and sedated) Skin: Dry, Intact Psych/Mental Status: Other (Intubated and sedated) Medications Current Medications Medications Dose Ordered Sig/Conner Route Start Time Stop Time Status Last Admin Dose Admin Aspirin 81 mg DAILY PO 10/01/24 10:00 10/20/24 11:32 81 MG Gabapentin 300 mg HS PO 09/30/24 22:00 10/18/24 21:17 300 MG Carvedilol 6.25 mg BID PO 09/30/24 22:00 Hold 09/30/24 17:32 6.25 MG Ondansetron HCl 4 mg Q4HP PRN IV 09/30/24 15:45 Nitroglycerin 0.4 mg Q5MINP PRN SL 09/30/24 15:45 Norepinephrine Bitartrate 250 ml @ 3.75 mls/hr Q24H IV 09/30/24 20:00 10/16/24 16:37 3.75 MLS/HR Pantoprazole Sodium 40 mg DAILY IV 10/01/24 10:00 10/20/24 11:32 40 MG Acetaminophen 650 mg Q6HP PRN NG 10/01/24 02:00 10/01/24 15:00 650 MG Furosemide 80 mg BIDD IV 10/02/24 07:30 10/18/24 18:52 80 MG Docusate Sodium 100 mg DAILY GT 10/05/24 10:00 10/13/24 08:08 100 MG Diagnostic Test (Pha) 1 strip Q6HR 10/04/24 12:00 10/20/24 12:00 1 STRIP Insulin Human Regular Q6HR SC 10/04/24 12:00 10/20/24 13:22 3 UNITS Dextrose 50 ml UD PRN IV 10/04/24 12:00 Polyethylene Glycol 17 gm DAILY PO 10/11/24 10:00 10/13/24 08:08 17 GM Sennosides 8.6 mg HS PO 10/10/24 22:00 10/18/24 21:16 8.6 MG Lorazepam 1 mg Q8HP PRN IV 10/19/24 01:15 Laboratory Results Laboratory Tests 10/19/24 12:55 Urinalysis Test 10/01/24 00:36 Urine Creatinine 241.60 mg/dL (30.0-125.0) H Urine Sodium 35 mmol/L (40-220) L Microbiology Microbiology Date/Time Source Procedure Growth Status 10/05/24 19:49 Blood Blood Culture - Final NO GROWTH AFTER 5 DAYS OF INCUBATION. Complete 10/03/24 15:40 Nose MRSA Screen - Final Complete 10/01/24 00:36 Urine - [place] Urine Culture - Final Complete Labs and/or images reviewed: Labs reviewed by me, Image(s) reviewed by me Assessment/Plan Assessment/Plan Impression: -NSTEMI, probably type 2 secondary to amphetamine use -amphetamine use -cardiomyopathy -acute on chronic systolic heart failure with ejection fraction 10% -acute hypoxic respiratory failure -AFib/flutter with RVR -cardiogenic shock -acute kidney injury, vasomotor nephropathy -underlying CKD stage IIIb/four -leukocytosis, probable sirs -hypoglycemia -sacral decubitus ulcer Plan: Events: Hemodynamically stable. Dobutamine drip stopped. Noted sacral wound. -wound care consultation -long discussion made with the patient regarding discharge planning. Patient requesting to go to detention facility. Social service consultation -cardiology consultation: Recommendations reviewed -nephrology consultation-HD per their recommendations -PUD, DVT prophylaxis -physical therapy Critical care time spent with patient discussing and formulating plan of care: 40 minutes. This does not include time spent performing procedures. This medical document was created using an electronic medical record system with [employer] computerized dictation system. Although this document has been carefully reviewed, there may still be some phonetic and typographical errors. These areas are purely typographical due to imperfections of the software programs, and do not reflect any compromise in the patient's medical care. Plan discussed with: Patient, Other (RN) Date of Service: October 20, 2024 Billing Provider: MARK LILLY NP Common Visit Codes: [id number] INP/OBS CARE(HIGH) MARK LILLY NP October 20, 2024 15:34
--- NOTE | 2024-10-20 15:55 | DVHPN2 ---
Progress Note Date Seen: October 20, 2024 Has the PT tested + for MRSA If YES, has PT been informed?: No Medical Necessity Reason Pt with a Central, PICC or Fol: Yes The following are medically ne: Central Line, Vengeas Catheter Reason for venegas catheter: Strict I&O Subjective Patient reports: Other (no events) Review of Systems: Deferred Objective vital signs Vital Sign Date Time Temp Pulse Resp B/P (MAP) Pulse Ox O2 Delivery O2 Flow Rate FiO2 10/20/24 13:00 97.1 72 18 108/64 (79) 99 97.1 10/20/24 08:00 Nasal Cannula* 2 28 Total Intake and Output 10/19/24 10/19/24 10/20/24 15:00 23:00 07:00 Intake Total 240 ml 720 ml 500 ml Output Total 900 ml 950 ml Balance 240 ml -180 ml -450 ml medications Current Medications Medications Dose Ordered Sig/Conner Route Start Time Stop Time Status Last Admin Dose Admin Aspirin 81 mg DAILY PO 10/01/24 10:00 10/20/24 11:32 81 MG Gabapentin 300 mg HS PO 09/30/24 22:00 10/18/24 21:17 300 MG Carvedilol 6.25 mg BID PO 09/30/24 22:00 Hold 09/30/24 17:32 6.25 MG Ondansetron HCl 4 mg Q4HP PRN IV 09/30/24 15:45 Nitroglycerin 0.4 mg Q5MINP PRN SL 09/30/24 15:45 Norepinephrine Bitartrate 250 ml @ 3.75 mls/hr Q24H IV 09/30/24 20:00 10/16/24 16:37 3.75 MLS/HR Pantoprazole Sodium 40 mg DAILY IV 10/01/24 10:00 10/20/24 11:32 40 MG Acetaminophen 650 mg Q6HP PRN NG 10/01/24 02:00 10/01/24 15:00 650 MG Furosemide 80 mg BIDD IV 10/02/24 07:30 10/18/24 18:52 80 MG Docusate Sodium 100 mg DAILY GT 10/05/24 10:00 10/13/24 08:08 100 MG Diagnostic Test (Pha) 1 strip Q6HR 10/04/24 12:00 10/20/24 12:00 1 STRIP Insulin Human Regular Q6HR SC 10/04/24 12:00 10/20/24 13:22 3 UNITS Dextrose 50 ml UD PRN IV 10/04/24 12:00 Polyethylene Glycol 17 gm DAILY PO 10/11/24 10:00 10/13/24 08:08 17 GM Sennosides 8.6 mg HS PO 10/10/24 22:00 10/18/24 21:16 8.6 MG Lorazepam 1 mg Q8HP PRN IV 10/19/24 01:15 Examination: GENERAL:Abnormal, LUNGS:Abnormal, MSK:Abnormal, SKIN:Abnormal, NEURO:Normal laboratory and microbiology Laboratory Tests 10/19/24 12:55 Test 10/19/24 12:55 Range/Units Serum Glucose 141 H 74-106 mg/dL Microbiology Date/Time Source Procedure Growth Status 10/05/24 19:49 Blood Blood Culture - Final NO GROWTH AFTER 5 DAYS OF INCUBATION. Complete 10/03/24 15:40 Nose MRSA Screen - Final Complete 10/01/24 00:36 Urine - [place] Urine Culture - Final Complete Problem List/Assessment/Plan Problem List/Assessment/Plan Acute kidney injury likely possibly ATN in the setting of shock needing HD Shock Chronic kidney disease stage 3a Acute respiratory failure extubated 10/14/24 Methamphetamine intoxication Sepsis Hypokalemia Hypoglycemia Recommendations HD tomorrow extubated iv lasix bid Plan discussed with: Patient, Other Dietary Evaluation Review Comments: 1) Initiate Pro-Stat @ 30 mL qd. Flush 30 mL H2O AC/PC. 2) Increase TF to 35 mL/hr goal rate. TF rate will provide 1612 kcals, 83g Pro (including Pro-Stat), and 626 mL free H2O per 24 hrs. TF rate will meet ~ 79% estimated energy needs and 75% estimated protein needs 3) Initiate vitamin C @ 500 mg bid and zinc sulfate @ 220 mg qd for 7-10 days. 4) Consider Nephro-[place] @ 1 tb qd 5) Follow-up with nephrology, cardiology, pulmonology, and manager social media 6) Continue to monitor I&O, labs, and skin integrity Expected Outcomes/Goals: 1) labs to improve 2) wound to improve 3) diet to advance 4) f/u in 2-3 days LUIZ RIDLEY MD October 20, 2024 15:55
[2024-10-20 17:00] VITALS: BP 122/68; PULSE 73; RESP 18; TEMP 97.5; O2SAT 97
--- NOTE | 2024-10-20 22:44 | DVHPN2 ---
Progress Note - Dictate Date Seen: October 20, 2024 Has the PT tested + for MRSA If YES, has PT been informed?: No Medical Necessity Reason Pt with a Central, PICC or Fol: Yes The following are medically ne: Central Line, Venegas Catheter Reason for venegas catheter: Strict I&O Subjective Patient seen and examined at bedside. Remains on supplemental oxygen Overnight events reviewed. vital signs Vital Sign Date Time Temp Pulse Resp B/P (MAP) Pulse Ox O2 Delivery O2 Flow Rate FiO2 10/20/24 17:59 122/68 10/20/24 17:00 97.5 73 18 97 97.5 10/20/24 08:00 Nasal Cannula* 2 28 Total Intake and Output 10/19/24 10/19/24 10/20/24 15:00 23:00 07:00 Intake Total 240 ml 720 ml 500 ml Output Total 900 ml 950 ml Balance 240 ml -180 ml -450 ml medications Current Medications Medications Dose Ordered Sig/Conner Route Start Time Stop Time Status Last Admin Dose Admin Aspirin 81 mg DAILY PO 10/01/24 10:00 10/20/24 11:32 81 MG Gabapentin 300 mg HS PO 09/30/24 22:00 10/18/24 21:17 300 MG Carvedilol 6.25 mg BID PO 09/30/24 22:00 Hold 09/30/24 17:32 6.25 MG Ondansetron HCl 4 mg Q4HP PRN IV 09/30/24 15:45 Nitroglycerin 0.4 mg Q5MINP PRN SL 09/30/24 15:45 Pantoprazole Sodium 40 mg DAILY IV 10/01/24 10:00 10/20/24 11:32 40 MG Acetaminophen 650 mg Q6HP PRN NG 10/01/24 02:00 10/01/24 15:00 650 MG Furosemide 80 mg BIDD IV 10/02/24 07:30 10/20/24 17:59 80 MG Docusate Sodium 100 mg DAILY GT 10/05/24 10:00 10/13/24 08:08 100 MG Diagnostic Test (Pha) 1 strip Q6HR 10/04/24 12:00 10/20/24 17:59 1 STRIP Insulin Human Regular Q6HR SC 10/04/24 12:00 10/20/24 13:22 3 UNITS Dextrose 50 ml UD PRN IV 10/04/24 12:00 Polyethylene Glycol 17 gm DAILY PO 10/11/24 10:00 10/13/24 08:08 17 GM Sennosides 8.6 mg HS PO 10/10/24 22:00 10/18/24 21:16 8.6 MG Lorazepam 1 mg Q8HP PRN IV 10/19/24 01:15 objective Gen.: Patient lying in bed in no apparent distress. On supplemental oxygen. Head: Normocephalic, atraumatic. Eyes: EOMI/PERRLA. Ears: Normal hearing. Normal anatomy. Neck/trachea: Trachea midline, supple. Nose: Normal external anatomy. Mouth: Moist mucous membranes. Chest: Decreased air entry bilaterally. No wheezing or rhonchi. Cardiovascular: Positive S1, positive S2. Regular rate and rhythm. Abdomen: Positive bowel sounds in all 4 quadrants. Soft, non-tender, non- distended. : Deferred. Rectal: Deferred. Skin: Warm, dry. Intact. Extremities: 2+ radial pulses bilaterally. No lower extremity edema. Neuro: Awake, alert, oriented x3. No gross motor or sensory deficits. Cranial nerves II through XII intact. Gait not assessed. laboratory and microbiology Laboratory Tests 10/19/24 12:55 Test 10/19/24 12:55 Range/Units Serum Glucose 141 H 74-106 mg/dL Assessment/Plan Impression: Acute hypoxic respiratory failure Elevated troponin [id number] myocardial infarction Acute kidney injury, started on HD Syncope Cardiomyopathy EF 10% Substance abuse Events Remains on supplemental oxygen, on 2 LPM NC Taper O2 as tolerated Patient was agitated throughout the night, refusing all interventions. Patient becoming physical and throwing stuff Psych recommendations appreciated. Head of bed elevation Aspiration precautions. Protonix for GI prophylaxis Incentive spirometry Pain control Avoid oversedation Hemodialysis per Nephrology - plan for HD tomorrow Requires pressors while on hemodialysis Diurese with Lasix Monitor renal function Monitor electrolytes. Supplement as necessary. Monitor ins and outs. Wound care Accu-Cheks, ISS Physical therapy Labs and imaging reviewed Plan: S/p extubation on 10/14/24 Supplemental oxygen Titrate to keep O2 sats above 92% Dopamine drip 2 mcg/min for renal perfusion Blood cultures show no growth x5 days Sputum cultures grew Staph aureus, Pseudomonas aeruginosa, Klebsiella pneumoniae. Antibiotics Accu-Cheks, ISS. Monitor renal function Monitor electrolytes. Supplement as necessary. Monitor ins and outs. Maintain euvolemia. Echocardiogram reviewed Cardiology recs appreciated GI prophylaxis. DVT prophylaxis Prognosis: Poor given patient's multiple co-morbidities. Rest of plan per hospitalist and other consultants. Thank you, YOLANDA Fuller/YOLANDA Stacy, for allowing me to participate in this patient's care. Further recommendations will depend on the patient's clinical course. Please do not hesitate to contact me if you have any questions or concerns. This medical document was created using an electronic medical record system with [employer] dictation system. Although these documentations are being carefully reviewed, there may still be some phonetic and typographical changes. The errors are purely typographical, due to imperfection on the software program, and do not reflect any compromise in the patient's medical care. Dietary Evaluation Review Comments: 1) Initiate Pro-Stat @ 30 mL qd. Flush 30 mL H2O AC/PC. 2) Increase TF to 35 mL/hr goal rate. TF rate will provide 1612 kcals, 83g Pro (including Pro-Stat), and 626 mL free H2O per 24 hrs. TF rate will meet ~ 79% estimated energy needs and 75% estimated protein needs 3) Initiate vitamin C @ 500 mg bid and zinc sulfate @ 220 mg qd for 7-10 days. 4) Consider Nephro-[place] @ 1 tb qd 5) Follow-up with nephrology, cardiology, pulmonology, and social service liaison 6) Continue to monitor I&O, labs, and skin integrity Expected Outcomes/Goals: 1) labs to improve 2) wound to improve 3) diet to advance 4) f/u in 2-3 days Plan discussed with: Other (TATIANA Ocasio) YAW PLUNKETT MD October 20, 2024 22:43
--- NOTE | 2024-10-20 23:41 | DVHPN2 ---
Progress Note - Dictate Date Seen: October 20, 2024 Has the PT tested + for MRSA If YES, has PT been informed?: No Medical Necessity Reason Pt with a Central, PICC or Fol: Yes The following are medically ne: Central Line, Venegas Catheter Reason for venegas catheter: Strict I&O Subjective Patient was seen and evaluated in follow up. Patient is on 2 LPM NC. Patient planned for HD tomorrow. BS in the 120s. Telemetry reviewed. vital signs Vital Sign Date Time Temp Pulse Resp B/P (MAP) Pulse Ox O2 Delivery O2 Flow Rate FiO2 10/20/24 17:59 122/68 10/20/24 17:00 97.5 73 18 97 97.5 10/20/24 08:00 Nasal Cannula* 2 28 Total Intake and Output 10/19/24 10/19/24 10/20/24 15:00 23:00 07:00 Intake Total 240 ml 720 ml 500 ml Output Total 900 ml 950 ml Balance 240 ml -180 ml -450 ml medications Current Medications Medications Dose Ordered Sig/Conner Route Start Time Stop Time Status Last Admin Dose Admin Aspirin 81 mg DAILY PO 10/01/24 10:00 10/20/24 11:32 81 MG Gabapentin 300 mg HS PO 09/30/24 22:00 10/18/24 21:17 300 MG Carvedilol 6.25 mg BID PO 09/30/24 22:00 Hold 09/30/24 17:32 6.25 MG Ondansetron HCl 4 mg Q4HP PRN IV 09/30/24 15:45 Nitroglycerin 0.4 mg Q5MINP PRN SL 09/30/24 15:45 Pantoprazole Sodium 40 mg DAILY IV 10/01/24 10:00 10/20/24 11:32 40 MG Acetaminophen 650 mg Q6HP PRN NG 10/01/24 02:00 10/01/24 15:00 650 MG Furosemide 80 mg BIDD IV 10/02/24 07:30 10/20/24 17:59 80 MG Docusate Sodium 100 mg DAILY GT 10/05/24 10:00 10/13/24 08:08 100 MG Diagnostic Test (Pha) 1 strip Q6HR 10/04/24 12:00 10/20/24 17:59 1 STRIP Insulin Human Regular Q6HR SC 10/04/24 12:00 10/20/24 13:22 3 UNITS Dextrose 50 ml UD PRN IV 10/04/24 12:00 Polyethylene Glycol 17 gm DAILY PO 10/11/24 10:00 10/13/24 08:08 17 GM Sennosides 8.6 mg HS PO 10/10/24 22:00 10/18/24 21:16 8.6 MG Lorazepam 1 mg Q8HP PRN IV 10/19/24 01:15 objective GENERAL: Alert and oriented x 3. No acute distress. EYES: PERRL, EOMI. Anicteric. HENT: Moist mucous membranes. LUNGS: Decreased air entry bilaterally. CARDIOVASCULAR: Irregular rate and rhythm. ABDOMEN: Soft, non-tender and non-distended. EXTREMITIES: No edema. SKIN: Warm, dry. laboratory and microbiology Laboratory Tests 10/19/24 12:55 Test 10/19/24 12:55 Range/Units Serum Glucose 141 H 74-106 mg/dL Problem List Chest pain. NSTEMI. Atrial Fibrillation with RVR. CIARAN. Community acquired pneumonia. Acute on chronic systolic heart failure EF 10%. DM2 with hyperglycemia. Constipation. Anxiety. Acute respiratory failure. Assessment/Plan Continued all current supportive medical care. Aspirin. Diuretics with Lasix. Nitro SL. GI prophylactics. Additional plan as per the hospital course. Dietary Evaluation Review Comments: 1) Initiate Pro-Stat @ 30 mL qd. Flush 30 mL H2O AC/PC. 2) Increase TF to 35 mL/hr goal rate. TF rate will provide 1612 kcals, 83g Pro (including Pro-Stat), and 626 mL free H2O per 24 hrs. TF rate will meet ~ 79% estimated energy needs and 75% estimated protein needs 3) Initiate vitamin C @ 500 mg bid and zinc sulfate @ 220 mg qd for 7-10 days. 4) Consider Nephro-[place] @ 1 tb qd 5) Follow-up with nephrology, cardiology, pulmonology, and social worker delinquency prevention 6) Continue to monitor I&O, labs, and skin integrity Expected Outcomes/Goals: 1) labs to improve 2) wound to improve 3) diet to advance 4) f/u in 2-3 days Plan discussed with: Patient DESHAUN PETERSON MD October 20, 2024 23:41
[2024-10-21 01:00] VITALS: BP 105/69; PULSE 62; RESP 18; TEMP 97.8; O2SAT 99
[2024-10-21 09:00] VITALS: BP 134/70; PULSE 74; RESP 17; TEMP 97.6; O2SAT 98
--- NOTE | 2024-10-21 10:34 | DVHPN2 ---
Progress Note Date Seen: October 21, 2024 Resident Creating Document: MARGARETTE MORALES RESIDENT Has the PT tested + for MRSA If YES, has PT been informed?: No Medical Necessity Reason Pt with a Central, PICC or Fol: Yes The following are medically ne: Central Line, Venegas Catheter Reason for venegas catheter: Strict I&O Subjective Review of Systems Patient seen and examined at bedside. Patient is a non cooperative, mildly demented, polysubstance abuse. Patient was refusing medications and labs this morning but after talking and explaining to the patient the needs of labs, patient agreed on withdrawing blood for labs. Upon my examination, patient has a Sudheer catheter on right jugular vein. Bilateral lung sounds grossly clear, there is diffuse dry skin with no evidence of peripheral edema at this time. Patient is having odd thoughts but is understanding and answering questions pertinently. We will schedule hemodialysis today. we will also place radiologist consult for tunneled catheter dialysis placement home at this time the patient is a green with the placement of the catheter. We will discontinue Venegas. ROS Constitutional: Denies weight loss, fever and chills. HEENT: Denies changes in vision and hearing. Respiratory: Denies shortness of breath and cough Cardiovascular: Denies chest discomfort or palpitations GI: Denies abdominal pain, nausea, vomiting and diarrhea. : Denies dysuria and urinary frequency. Musculoskeletal: Denies myalgias and joint pain Skin: Denies rash and pruritus. Neurological: Denies dizziness, headache, vision or hearing problems Objective vital signs Vital Sign Date Time Temp Pulse Resp B/P (MAP) Pulse Ox O2 Delivery O2 Flow Rate FiO2 10/21/24 09:00 97.6 74 17 134/70 (91) 98 97.6 10/21/24 07:35 Nasal Cannula* 2 28 Total Intake and Output 10/20/24 10/20/24 10/21/24 15:00 23:00 07:00 Intake Total 1000 ml 0 ml Output Total 850 ml Balance 150 ml 0 ml medications Current Medications Medications Dose Ordered Sig/Conner Route Start Time Stop Time Status Last Admin Dose Admin Aspirin 81 mg DAILY PO 10/01/24 10:00 10/21/24 09:16 81 MG Gabapentin 300 mg HS PO 09/30/24 22:00 10/18/24 21:17 300 MG Carvedilol 6.25 mg BID PO 09/30/24 22:00 Hold 09/30/24 17:32 6.25 MG Ondansetron HCl 4 mg Q4HP PRN IV 09/30/24 15:45 Nitroglycerin 0.4 mg Q5MINP PRN SL 09/30/24 15:45 Pantoprazole Sodium 40 mg DAILY IV 10/01/24 10:00 10/21/24 09:20 40 MG Acetaminophen 650 mg Q6HP PRN NG 10/01/24 02:00 10/01/24 15:00 650 MG Furosemide 80 mg BIDD IV 10/02/24 07:30 10/20/24 17:59 80 MG Docusate Sodium 100 mg DAILY GT 10/05/24 10:00 10/13/24 08:08 100 MG Diagnostic Test (Pha) 1 strip Q6HR 10/04/24 12:00 10/20/24 17:59 1 STRIP Insulin Human Regular Q6HR SC 10/04/24 12:00 10/20/24 13:22 3 UNITS Dextrose 50 ml UD PRN IV 10/04/24 12:00 Polyethylene Glycol 17 gm DAILY PO 10/11/24 10:00 10/13/24 08:08 17 GM Sennosides 8.6 mg HS PO 10/10/24 22:00 10/18/24 21:16 8.6 MG Lorazepam 1 mg Q8HP PRN IV 10/19/24 01:15 Examination Physical Examination General: Patient alert and oriented but is non cooperative. Patient has odd thinking but understands, answers questions and follows command. HEENT: Normocephalic, atraumatic, moist mucous membranes Respiratory/pulmonary: Clear lungs bilaterally, no associated crackles or wheezes. Cardiovascular: Normal heart sounds S1 and S2 with no associated murmurs Abdomen: Abdomen nondistended, there is no pain to palpation in any of the abdominal quadrants, no palpable masses. Extremities: There is diffuse dry skin with scaly plaques all over upper and lower extremities. There is no peripheral edema present at the lower extremities. Skin: There is diffuse dry skin with scaly plaques especially on upper and lower extremities. Neurological: Not able to evaluate since the patient is non cooperative. laboratory and microbiology Laboratory Tests 10/19/24 12:55 Test 10/19/24 12:55 Range/Units Serum Glucose 141 H 74-106 mg/dL Microbiology Date/Time Source Procedure Growth Status 10/05/24 19:49 Blood Blood Culture - Final NO GROWTH AFTER 5 DAYS OF INCUBATION. Complete 10/03/24 15:40 Nose MRSA Screen - Final Complete 10/01/24 00:36 Urine - Ven[place]as [place] Urine Culture - Final Complete Problem List/Assessment/Plan Problem List/Assessment/Plan Assessment/Plan Acute kidney injury likely ATN in the setting of shock requiring HD Septic shock Chronic kidney disease stage IIIA Dilated cardiomyopathy Systolic heart failure (HFrEF 10%) NSTEMI likely type II Acute respiratory failure, extubated on 10/14/24 currently on room air Methamphetamine intoxication Hypokalemia Hypoglycemia Plan -Patient will be scheduled for HD today -Continue furosemide 80mg IV BID -in's of 1000 mL, output of 850 mL for a positive balance of 150 mL in the last 24 hours -consulted interventional radiologist for tunneled catheter dialysis placement -discontinue Venegas -Patient refusing treatment and labs, will try to obtain BMP to eval kidney function -Renal/cardiac diet -avoid nephrotoxic drugs, chief counsel on meth cessation Goals of care discussed with the patient at bedside for >20min Plan discussed with Dr. Ridley Addendum Patient seen and examined, plan discussed with resident. Agree with above, we will follow closely chairtime with dcd Plan discussed with: Patient My Orders My Orders Orders - MARGARETTE MORALES RESIDENT Procedure Category Date Status Time Basic Metabolic Panel LAB 10/21/24 Logged 08:55 Dietary Evaluation Review Comments: 1) Initiate Pro-Stat @ 30 mL qd. Flush 30 mL H2O AC/PC. 2) Increase TF to 35 mL/hr goal rate. TF rate will provide 1612 kcals, 83g Pro (including Pro-Stat), and 626 mL free H2O per 24 hrs. TF rate will meet ~ 79% estimated energy needs and 75% estimated protein needs 3) Initiate vitamin C @ 500 mg bid and zinc sulfate @ 220 mg qd for 7-10 days. 4) Consider Nephro-[place] @ 1 tb qd 5) Follow-up with nephrology, cardiology, pulmonology, and social media editor 6) Continue to monitor I&O, labs, and skin integrity Expected Outcomes/Goals: 1) labs to improve 2) wound to improve 3) diet to advance 4) f/u in 2-3 days MARGARETTE MORALES RESIDENT October 21, 2024 10:34 LUIZ RIDLEY MD October 21, 2024 13:38
[2024-10-21 10:37] LABS: Anion Gap 11 (5-15); Carbon Dioxide 23 mmol/L (20-31); Chloride 97 mmol/L (98-107); Sodium 131 mmol/L (136-145)
[2024-10-21 10:38] LABS: Calcium 9.9 mg/dL (8.7-10.4)
[2024-10-21 10:42] LABS: BUN/Creatinine Ratio 24.6 (10.0-20.0)
[2024-10-21 10:43] LABS: Blood Urea Nitrogen 70 mg/dL (9-23); Glucose 253 mg/dL (74-106)
[2024-10-21 13:00] VITALS: BP 127/64; PULSE 78; RESP 19; RESP 9; TEMP 98.4; O2SAT 92
--- NOTE | 2024-10-21 15:04 | DVHPN2 ---
Subjective Patient denies any symptoms. Reviewed: Care Plan, H&P, Labs, Medications, Previous Orders, Radiology, Other (Consultations) Changes from previous H/P or p: No Changes General: Per HPI Objective Vitals Vital Signs Date Time Temp Pulse Resp B/P (MAP) Pulse Ox O2 Delivery O2 Flow Rate FiO2 10/21/24 13:00 98.4 78 9 127/64 (85) 92 98.4 10/21/24 07:35 Nasal Cannula* 2 28 Intake/Output Intake and Output 10/21/24 07:00 Intake Total 1000 ml Output Total 850 ml Balance 150 ml Intake Oral 1000 ml Output Urine Total 850 ml # Bowel Movements 1 General Appearance: Alert, Oriented X3, Cooperative, mild distress, Other HEENT: Atraumatic, PERRLA Lungs: Clear to auscultation, Normal air movement Cardiovascular: Normal S1, Normal S2, Other (Irregularly irregular) Abdomen: Soft Genitourinary: Other (Inman's catheter) Musculoskeletal: Other (Motor removed) Extremities: Other (Dusky lower extremities) Neuro: Other (Intubated and sedated) Skin: Dry, Intact Psych/Mental Status: Other (Intubated and sedated) Medications Current Medications Medications Dose Ordered Sig/Conner Route Start Time Stop Time Status Last Admin Dose Admin Aspirin 81 mg DAILY PO 10/01/24 10:00 10/21/24 09:16 81 MG Gabapentin 300 mg HS PO 09/30/24 22:00 10/18/24 21:17 300 MG Carvedilol 6.25 mg BID PO 09/30/24 22:00 Hold 09/30/24 17:32 6.25 MG Ondansetron HCl 4 mg Q4HP PRN IV 09/30/24 15:45 Nitroglycerin 0.4 mg Q5MINP PRN SL 09/30/24 15:45 Pantoprazole Sodium 40 mg DAILY IV 10/01/24 10:00 10/21/24 09:20 40 MG Acetaminophen 650 mg Q6HP PRN NG 10/01/24 02:00 10/01/24 15:00 650 MG Furosemide 80 mg BIDD IV 10/02/24 07:30 10/20/24 17:59 80 MG Docusate Sodium 100 mg DAILY GT 10/05/24 10:00 10/13/24 08:08 100 MG Diagnostic Test (Pha) 1 strip Q6HR 4/26/25 12:00 10/21/24 12:00 1 STRIP Insulin Human Regular Q6HR SC 10/04/24 12:00 10/21/24 13:14 2 UNITS Dextrose 50 ml UD PRN IV 10/04/24 12:00 Polyethylene Glycol 17 gm DAILY PO 10/11/24 10:00 10/13/24 08:08 17 GM Sennosides 8.6 mg HS PO 10/10/24 22:00 10/18/24 21:16 8.6 MG Lorazepam 1 mg Q8HP PRN IV 10/19/24 01:15 Laboratory Results Laboratory Tests 10/19/24 12:55 10/21/24 09:50 Chemistry Test 10/21/24 09:50 Calcium Level 9.9 mg/dL (8.7-10.4) Urinalysis Test 10/01/24 00:36 Urine Creatinine 241.60 mg/dL (30.0-125.0) H Urine Sodium 35 mmol/L (40-220) L Microbiology Microbiology Date/Time Source Procedure Growth Status 10/05/24 19:49 Blood Blood Culture - Final NO GROWTH AFTER 5 DAYS OF INCUBATION. Complete 10/03/24 15:40 Nose MRSA Screen - Final Complete 10/01/24 00:36 Urine - [place] Urine Culture - Final Complete Labs and/or images reviewed: Labs reviewed by me, Image(s) reviewed by me Assessment/Plan Assessment/Plan Impression: -NSTEMI, probably type 2 secondary to amphetamine use -amphetamine use -cardiomyopathy -acute on chronic systolic heart failure with ejection fraction 10% -acute hypoxic respiratory failure -AFib/flutter with RVR -cardiogenic shock -acute kidney injury, vasomotor nephropathy -underlying CKD stage IIIb/four -leukocytosis, probable sirs -hypoglycemia -sacral decubitus ulcer Plan: Events: Hemodynamically stable. The patient more cooperative today. Accepting hemodialysis. Now willing to undergo tunneled dialysis catheter tomorrow. Awaiting for health care social worker to right information on SNF placement -wound care consultation -long discussion made with the patient regarding discharge planning. Patient requesting to go to custodial facility. Social service consultation -cardiology consultation: Recommendations reviewed -nephrology consultation-HD per their recommendations -PUD, DVT prophylaxis -physical therapy Critical care time spent with patient discussing and formulating plan of care: 40 minutes. This does not include time spent performing procedures. This medical document was created using an electronic medical record system with [employer] computerized dictation system. Although this document has been carefully reviewed, there may still be some phonetic and typographical errors. These areas are purely typographical due to imperfections of the software programs, and do not reflect any compromise in the patient's medical care. Plan discussed with: Patient, Other (RN) My Orders Orders - MARK LILLY NP Procedure Category Date Status Time * Woven Blind Loom Tender CONS 10/20/24 Transmitted Consult Basic Metabolic Panel LAB 10/22/24 Verified 04:00 PTPTT LAB 10/22/24 Verified 04:00 Complete Blood Count LAB 10/22/24 Verified 04:00 Date of Service: October 21, 2024 Billing Provider: MARK LILLY NP Common Visit Codes: [id number] INP/OBS CARE(HIGH) MARK LILLY NP October 21, 2024 15:04
[2024-10-21 17:00] VITALS: BP 122/53; PULSE 77; RESP 17; TEMP 98.2; O2SAT 92
--- NOTE | 2024-10-21 20:03 | DVHPN2 ---
Progress Note - Dictate Date Seen: October 21, 2024 Has the PT tested + for MRSA If YES, has PT been informed?: No Medical Necessity Reason Pt with a Central, PICC or Fol: Yes The following are medically ne: Central Line, Venegas Catheter Reason for venegas catheter: Strict I&O Subjective Patient seen and examined at bedside. Remains on supplemental oxygen Overnight events reviewed. vital signs Vital Sign Date Time Temp Pulse Resp B/P (MAP) Pulse Ox O2 Delivery O2 Flow Rate FiO2 10/21/24 18:19 128/68 10/21/24 17:00 98.2 77 17 92 98.2 10/21/24 07:35 Nasal Cannula* 2 28 Total Intake and Output 10/20/24 10/20/24 10/21/24 15:00 23:00 07:00 Intake Total 1000 ml 0 ml Output Total 850 ml Balance 150 ml 0 ml medications Current Medications Medications Dose Ordered Sig/Conner Route Start Time Stop Time Status Last Admin Dose Admin Aspirin 81 mg DAILY PO 10/01/24 10:00 10/21/24 09:16 81 MG Gabapentin 300 mg HS PO 09/30/24 22:00 10/18/24 21:17 300 MG Carvedilol 6.25 mg BID PO 09/30/24 22:00 Hold 09/30/24 17:32 6.25 MG Ondansetron HCl 4 mg Q4HP PRN IV 09/30/24 15:45 Nitroglycerin 0.4 mg Q5MINP PRN SL 09/30/24 15:45 Pantoprazole Sodium 40 mg DAILY IV 10/01/24 10:00 10/21/24 09:20 40 MG Acetaminophen 650 mg Q6HP PRN NG 10/01/24 02:00 10/01/24 15:00 650 MG Furosemide 80 mg BIDD IV 10/02/24 07:30 10/21/24 18:19 80 MG Docusate Sodium 100 mg DAILY GT 10/05/24 10:00 10/13/24 08:08 100 MG Diagnostic Test (Pha) 1 strip Q6HR 10/04/24 12:00 10/21/24 18:07 1 STRIP Insulin Human Regular Q6HR SC 10/04/24 12:00 10/21/24 18:08 2 UNITS Dextrose 50 ml UD PRN IV 10/04/24 12:00 Polyethylene Glycol 17 gm DAILY PO 10/11/24 10:00 10/13/24 08:08 17 GM Sennosides 8.6 mg HS PO 10/10/24 22:00 10/18/24 21:16 8.6 MG Lorazepam 1 mg Q8HP PRN IV 10/19/24 01:15 objective Gen.: Patient lying in bed in no apparent distress. On supplemental oxygen. Head: Normocephalic, atraumatic. Eyes: EOMI/PERRLA. Ears: Normal hearing. Normal anatomy. Neck/trachea: Trachea midline, supple. Nose: Normal external anatomy. Mouth: Moist mucous membranes. Chest: Decreased air entry bilaterally. No wheezing or rhonchi. Cardiovascular: Positive S1, positive S2. Regular rate and rhythm. Abdomen: Positive bowel sounds in all 4 quadrants. Soft, non-tender, non- distended. : Deferred. Rectal: Deferred. Skin: Warm, dry. Intact. Extremities: 2+ radial pulses bilaterally. No lower extremity edema. Neuro: Awake, alert, oriented x3. No gross motor or sensory deficits. Cranial nerves II through XII intact. Gait not assessed. laboratory and microbiology Laboratory Tests 10/21/24 09:50 10/19/24 12:55 Test 10/21/24 09:50 Range/Units Serum Glucose 253 #H 74-106 mg/dL Assessment/Plan Impression: Acute hypoxic respiratory failure Elevated troponin Fle-[id number] myocardial infarction Acute kidney injury, started on HD Syncope Cardiomyopathy EF 10% Substance abuse Events Remains on supplemental oxygen, on 2 LPM NC Taper O2 as tolerated Wound care. Head of bed elevation Aspiration precautions. Protonix for GI prophylaxis Incentive spirometry Pain control Avoid oversedation Hemodialysis per Nephrology- HD completed today. Requires pressors while on hemodialysis Diurese with Lasix Monitor renal function Monitor electrolytes. Supplement as necessary. Monitor ins and outs. Wound care Accu-Cheks, ISS Physical therapy Labs and imaging reviewed Plan: S/p extubation on 10/14/24 Supplemental oxygen Titrate to keep O2 sats above 92% Dopamine drip 2 mcg/min for renal perfusion Blood cultures show no growth x5 days Sputum cultures grew Staph aureus, Pseudomonas aeruginosa, Klebsiella pneumoniae. Antibiotics Accu-Cheks, ISS. Monitor renal function Monitor electrolytes. Supplement as necessary. Monitor ins and outs. Maintain euvolemia. Echocardiogram reviewed Cardiology recs appreciated GI prophylaxis. DVT prophylaxis Prognosis: Poor given patient's multiple co-morbidities. Rest of plan per hospitalist and other consultants. Thank you, YOLANDA Fuller/YOLANDA Stacy, for allowing me to participate in this patient's care. Further recommendations will depend on the patient's clinical course. Please do not hesitate to contact me if you have any questions or concerns. This medical document was created using an electronic medical record system with [employer] dictation system. Although these documentations are being carefully reviewed, there may still be some phonetic and typographical changes. The errors are purely typographical, due to imperfection on the software program, and do not reflect any compromise in the patient's medical care. Dietary Evaluation Review Comments: 1) Initiate Pro-Stat @ 30 mL qd. Flush 30 mL H2O AC/PC. 2) Increase TF to 35 mL/hr goal rate. TF rate will provide 1612 kcals, 83g Pro (including Pro-Stat), and 626 mL free H2O per 24 hrs. TF rate will meet ~ 79% estimated energy needs and 75% estimated protein needs 3) Initiate vitamin C @ 500 mg bid and zinc sulfate @ 220 mg qd for 7-10 days. 4) Consider Nephro-[place] @ 1 tb qd 5) Follow-up with nephrology, cardiology, pulmonology, and social media content specialist 6) Continue to monitor I&O, labs, and skin integrity Expected Outcomes/Goals: 1) labs to improve 2) wound to improve 3) diet to advance 4) f/u in 2-3 days Plan discussed with: Other (TATIANA Hanks) YAW PLUNKETT MD October 21, 2024 20:03
[2024-10-21 21:00] VITALS: BP 109/44; PULSE 61; RESP 18; TEMP 98.3; O2SAT 98
--- NOTE | 2024-10-21 22:21 | DVHPN2 ---
Progress Note - Dictate Date Seen: October 21, 2024 Has the PT tested + for MRSA If YES, has PT been informed?: No Medical Necessity Reason Pt with a Central, PICC or Fol: Yes The following are medically ne: Central Line, Venegas Catheter Reason for venegas catheter: Strict I&O Subjective Patient was seen and evaluated in follow up. Patient is on 2 LPM NC. Patient is a non cooperative, mildly demented. Patient initially refused meds and labs this morning, hoverer complied later in the day. Planned for HD today. 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 Telemetry reviewed. vital signs Vital Sign Date Time Temp Pulse Resp B/P (MAP) Pulse Ox O2 Delivery O2 Flow Rate FiO2 10/21/24 18:19 128/68 10/21/24 17:00 98.2 77 17 92 98.2 10/21/24 07:35 Nasal Cannula* 2 28 Total Intake and Output 10/20/24 10/20/24 10/21/24 15:00 23:00 07:00 Intake Total 1000 ml 0 ml Output Total 850 ml Balance 150 ml 0 ml medications Current Medications Medications Dose Ordered Sig/Conner Route Start Time Stop Time Status Last Admin Dose Admin Aspirin 81 mg DAILY PO 10/01/24 10:00 10/21/24 09:16 81 MG Gabapentin 300 mg HS PO 09/30/24 22:00 10/18/24 21:17 300 MG Carvedilol 6.25 mg BID PO 09/30/24 22:00 Hold 09/30/24 17:32 6.25 MG Ondansetron HCl 4 mg Q4HP PRN IV 09/30/24 15:45 Nitroglycerin 0.4 mg Q5MINP PRN SL 09/30/24 15:45 Pantoprazole Sodium 40 mg DAILY IV 10/01/24 10:00 10/21/24 09:20 40 MG Acetaminophen 650 mg Q6HP PRN NG 10/01/24 02:00 10/01/24 15:00 650 MG Furosemide 80 mg BIDD IV 10/02/24 07:30 10/21/24 18:19 80 MG Docusate Sodium 100 mg DAILY GT 10/05/24 10:00 10/13/24 08:08 100 MG Diagnostic Test (Pha) 1 strip Q6HR 10/04/24 12:00 10/21/24 18:07 1 STRIP Insulin Human Regular Q6HR SC 10/04/24 12:00 10/21/24 18:08 2 UNITS Dextrose 50 ml UD PRN IV 10/04/24 12:00 Polyethylene Glycol 17 gm DAILY PO 10/11/24 10:00 10/13/24 08:08 17 GM Sennosides 8.6 mg HS PO 10/10/24 22:00 10/18/24 21:16 8.6 MG Lorazepam 1 mg Q8HP PRN IV 10/19/24 01:15 objective GENERAL: Alert and oriented x 3. No acute distress. EYES: PERRL, EOMI. Anicteric. HENT: Moist mucous membranes. LUNGS: Decreased air entry bilaterally. CARDIOVASCULAR: Irregular rate and rhythm. ABDOMEN: Soft, non-tender and non-distended. EXTREMITIES: No edema. SKIN: Warm, dry. laboratory and microbiology Laboratory Tests 10/21/24 09:50 10/19/24 12:55 Test 10/21/24 09:50 Range/Units Serum Glucose 253 #H 74-106 mg/dL Problem List Chest pain. NSTEMI. Atrial Fibrillation with RVR. CIARAN. Community acquired pneumonia. Acute on chronic systolic heart failure EF 10%. DM2 with hyperglycemia. Constipation. Anxiety. Acute respiratory failure. Assessment/Plan Continued all current supportive medical care. Aspirin. Diuretics with Lasix. Nitro SL. GI prophylactics. Additional plan as per the hospital course. Dietary Evaluation Review Comments: 1) Initiate Pro-Stat @ 30 mL qd. Flush 30 mL H2O AC/PC. 2) Increase TF to 35 mL/hr goal rate. TF rate will provide 1612 kcals, 83g Pro (including Pro-Stat), and 626 mL free H2O per 24 hrs. TF rate will meet ~ 79% estimated energy needs and 75% estimated protein needs 3) Initiate vitamin C @ 500 mg bid and zinc sulfate @ 220 mg qd for 7-10 days. 4) Consider Nephro-[place] @ 1 tb qd 5) Follow-up with nephrology, cardiology, pulmonology, and social work faculty member 6) Continue to monitor I&O, labs, and skin integrity Expected Outcomes/Goals: 1) labs to improve 2) wound to improve 3) diet to advance 4) f/u in 2-3 days Plan discussed with: Patient DESHAUN PETERSON MD October 21, 2024 22:21
[2024-10-22] MEDS: HYDROcodone-ACET 5/325MG TAB PO PRN (00:43)
[2024-10-22 05:00] VITALS: BP 114/65; PULSE 90; RESP 17; TEMP 97.5; O2SAT 98
[2024-10-22 09:00] VITALS: BP 128/61; PULSE 72; RESP 20; TEMP 97.8; O2SAT 96
--- NOTE | 2024-10-22 11:54 | DVHPN2 ---
Subjective Patient denies any symptoms. Reviewed: Care Plan, H&P, Labs, Medications, Previous Orders, Radiology, Other (Consultations) Changes from previous H/P or p: No Changes General: Per HPI Objective Vitals Vital Signs Date Time Temp Pulse Resp B/P (MAP) Pulse Ox O2 Delivery O2 Flow Rate FiO2 10/22/24 09:00 97.8 72 20 128/61 (83) 96 97.8 10/21/24 20:00 Nasal Cannula* 2 28 Intake/Output Intake and Output 10/22/24 07:00 Intake Total 1600 ml Output Total 750 ml Balance 850 ml Intake Oral 1600 ml Output Urine Total 750 ml # Voids 4 # Bowel Movements 1 General Appearance: Alert, Oriented X3, Cooperative, mild distress, Other HEENT: Atraumatic, PERRLA Lungs: Clear to auscultation, Normal air movement Cardiovascular: Normal S1, Normal S2, Other (Irregularly irregular) Abdomen: Soft Genitourinary: Other ([place]man's catheter) Musculoskeletal: Other (Motor removed) Extremities: Other (Dusky lower extremities) Neuro: Other (Intubated and sedated) Skin: Dry, Intact Psych/Mental Status: Other (Intubated and sedated) Medications Current Medications Medications Dose Ordered Sig/Conner Route Start Time Stop Time Status Last Admin Dose Admin Aspirin 81 mg DAILY PO 10/01/24 10:00 10/21/24 09:16 81 MG Gabapentin 300 mg HS PO 09/30/24 22:00 10/18/24 21:17 300 MG Carvedilol 6.25 mg BID PO 09/30/24 22:00 Hold 09/30/24 17:32 6.25 MG Ondansetron HCl 4 mg Q4HP PRN IV 09/30/24 15:45 Nitroglycerin 0.4 mg Q5MINP PRN SL 09/30/24 15:45 Pantoprazole Sodium 40 mg DAILY IV 10/01/24 10:00 10/21/24 09:20 40 MG Acetaminophen 650 mg Q6HP PRN NG 10/01/24 02:00 10/01/24 15:00 650 MG Furosemide 80 mg BIDD IV 10/02/24 07:30 10/21/24 18:19 80 MG Docusate Sodium 100 mg DAILY GT 10/05/24 10:00 10/13/24 08:08 100 MG Diagnostic Test (Pha) 1 strip Q6HR 10/04/24 12:00 10/22/24 05:39 1 STRIP Insulin Human Regular Q6HR SC 10/04/24 12:00 10/21/24 18:08 2 UNITS Dextrose 50 ml UD PRN IV 10/04/24 12:00 Polyethylene Glycol 17 gm DAILY PO 10/11/24 10:00 10/13/24 08:08 17 GM Sennosides 8.6 mg HS PO 10/10/24 22:00 10/18/24 21:16 8.6 MG Lorazepam 1 mg Q8HP PRN IV 10/19/24 01:15 Acetaminophen/ Hydrocodone Bitart 1 tab Q8HPRN PRN PO 10/21/24 23:45 10/22/24 00:43 1 TAB Laboratory Results Laboratory Tests 10/19/24 12:55 10/21/24 09:50 Urinalysis Test 10/01/24 00:36 Urine Creatinine 241.60 mg/dL (30.0-125.0) H Urine Sodium 35 mmol/L (40-220) L Microbiology Microbiology Date/Time Source Procedure Growth Status 10/05/24 19:49 Blood Blood Culture - Final NO GROWTH AFTER 5 DAYS OF INCUBATION. Complete 10/03/24 15:40 Nose MRSA Screen - Final Complete 10/01/24 00:36 Urine - [place] Urine Culture - Final Complete Labs and/or images reviewed: Labs reviewed by me, Image(s) reviewed by me Assessment/Plan Assessment/Plan Impression: -NSTEMI, probably type 2 secondary to amphetamine use -amphetamine use -cardiomyopathy -acute on chronic systolic heart failure with ejection fraction 10% -acute hypoxic respiratory failure -AFib/flutter with RVR -cardiogenic shock -acute kidney injury, vasomotor nephropathy -underlying CKD stage IIIb/four -leukocytosis, probable sirs -hypoglycemia -sacral decubitus ulcer Plan: Events: Patient found to be somewhat altered today. Patient states that he went outside smoking. Apparently, the patient was somewhat agitated prior to leaving downstairs to smoke. -wound care consultation -long discussion made with the patient regarding discharge planning. Patient requesting to go to senior care facility. Social service consultation -cardiology consultation: Recommendations reviewed -nephrology consultation-HD per their recommendations -PUD, DVT prophylaxis -physical therapy -plans for HD tunneled cath today. -repeat UDS -risk management is to be notified the patient's behaviors. Critical care time spent with patient discussing and formulating plan of care: 40 minutes. This does not include time spent performing procedures. This medical document was created using an electronic medical record system with [employer] system. Although this document has been carefully reviewed, there may still be some phonetic and typographical errors. These areas are purely typographical due to imperfections of the software programs, and do not reflect any compromise in the patient's medical care. Plan discussed with: Patient, Other (RN) My Orders Orders - MARK LILLY NP Procedure Category Date Status Time Basic Metabolic Panel LAB 10/22/24 Logged 04:00 PTPTT LAB 10/22/24 Logged 04:00 Complete Blood Count LAB 10/22/24 Logged 04:00 Drug Screen LAB 10/22/24 Transmitted 11:50 Communication Order ORDERS 10/22/24 Transmitted 11:50 Basic Metabolic Panel LAB 10/23/24 Verified 04:00 Complete Blood Count LAB 10/22/24 Transmitted 11:50 Date of Service: October 22, 2024 Billing Provider: MARK LILLY NP Common Visit Codes: [id number] INP/OBS CARE(HIGH) MARK LILLY NP October 22, 2024 11:54
--- NOTE | 2024-10-22 11:57 | DVHPN2 ---
Progress Note Date Seen: October 22, 2024 Has the PT tested + for MRSA If YES, has PT been informed?: No Medical Necessity Reason Pt with a Central, PICC or Fol: Yes The following are medically ne: Central Line, Venegas Catheter Reason for venegas catheter: Strict I&O Subjective Patient reports: Other (Patient going out of hospital and doing drugs per hospitalist he refused tunneled catheter placement last week reinforced importance yesterday awaiting tunneled cath) Review of Systems: Deferred Objective vital signs Vital Sign Date Time Temp Pulse Resp B/P (MAP) Pulse Ox O2 Delivery O2 Flow Rate FiO2 10/22/24 09:00 97.8 72 20 128/61 (83) 96 97.8 10/21/24 20:00 Nasal Cannula* 2 28 Total Intake and Output 10/21/24 10/21/24 10/22/24 15:00 23:00 07:00 Intake Total 1000 ml 600 ml Output Total 750 ml Balance 250 ml 600 ml medications Current Medications Medications Dose Ordered Sig/Conner Route Start Time Stop Time Status Last Admin Dose Admin Aspirin 81 mg DAILY PO 10/01/24 10:00 10/21/24 09:16 81 MG Gabapentin 300 mg HS PO 09/30/24 22:00 10/18/24 21:17 300 MG Carvedilol 6.25 mg BID PO 09/30/24 22:00 Hold 09/30/24 17:32 6.25 MG Ondansetron HCl 4 mg Q4HP PRN IV 09/30/24 15:45 Nitroglycerin 0.4 mg Q5MINP PRN SL 09/30/24 15:45 Pantoprazole Sodium 40 mg DAILY IV 10/01/24 10:00 10/21/24 09:20 40 MG Acetaminophen 650 mg Q6HP PRN NG 10/01/24 02:00 10/01/24 15:00 650 MG Furosemide 80 mg BIDD IV 10/02/24 07:30 10/21/24 18:19 80 MG Docusate Sodium 100 mg DAILY GT 10/05/24 10:00 10/13/24 08:08 100 MG Diagnostic Test (Pha) 1 strip Q6HR 10/04/24 12:00 10/22/24 05:39 1 STRIP Insulin Human Regular Q6HR SC 10/04/24 12:00 10/21/24 18:08 2 UNITS Dextrose 50 ml UD PRN IV 10/04/24 12:00 Polyethylene Glycol 17 gm DAILY PO 10/11/24 10:00 10/13/24 08:08 17 GM Sennosides 8.6 mg HS PO 10/10/24 22:00 10/18/24 21:16 8.6 MG Lorazepam 1 mg Q8HP PRN IV 10/19/24 01:15 Acetaminophen/ Hydrocodone Bitart 1 tab Q8HPRN PRN PO 10/21/24 23:45 10/22/24 00:43 1 TAB laboratory and microbiology Laboratory Tests 10/21/24 09:50 10/19/24 12:55 Test 10/21/24 09:50 Range/Units Serum Glucose 253 #H 74-106 mg/dL Microbiology Date/Time Source Procedure Growth Status 10/05/24 19:49 Blood Blood Culture - Final NO GROWTH AFTER 5 DAYS OF INCUBATION. Complete 10/03/24 15:40 Nose MRSA Screen - Final Complete 10/01/24 00:36 Urine - [place] Urine Culture - Final Complete Problem List/Assessment/Plan Problem List/Assessment/Plan Assessment/Plan Acute kidney injury likely ATN in the setting of shock requiring HD Septic shock resolved Chronic kidney disease stage IIIA Dilated cardiomyopathy Systolic heart failure (HFrEF 10%) NSTEMI likely type II Acute respiratory failure, extubated on 10/14/24 currently on room air Methamphetamine intoxication Hypokalemia Hypoglycemia Plan -hemodialysis tomorrow Pending tunneled cath Poor prognosis given low EF Plan discussed with: Patient, Other Dietary Evaluation Review Comments: 1) Initiate Pro-Stat @ 30 mL qd. Flush 30 mL H2O AC/PC. 2) Increase TF to 35 mL/hr goal rate. TF rate will provide 1612 kcals, 83g Pro (including Pro-Stat), and 626 mL free H2O per 24 hrs. TF rate will meet ~ 79% estimated energy needs and 75% estimated protein needs 3) Initiate vitamin C @ 500 mg bid and zinc sulfate @ 220 mg qd for 7-10 days. 4) Consider Nephro-[place] @ 1 tb qd 5) Follow-up with nephrology, cardiology, pulmonology, and social media senior associate 6) Continue to monitor I&O, labs, and skin integrity Expected Outcomes/Goals: 1) labs to improve 2) wound to improve 3) diet to advance 4) f/u in 2-3 days TANJAVOUR,LUIZ MD October 22, 2024 11:57
--- NOTE | 2024-10-22 16:50 | DVHPN2 ---
Progress Note - Dictate Date Seen: October 22, 2024 Has the PT tested + for MRSA If YES, has PT been informed?: No Medical Necessity Reason Pt with a Central, PICC or Fol: Yes The following are medically ne: Central Line, Venegas Catheter Reason for venegas catheter: Strict I&O Subjective Patient was seen and evaluated in follow up. Patient is on 2 LPM NC. Patient has been agitated and altered. Patient requesting to go to longterm facility. The patient was scheduled for tunneled dialysis cath placement, however patient s now refusing procedure. Patient also refusing VS and labs. Telemetry reviewed. vital signs Vital Sign Date Time Temp Pulse Resp B/P (MAP) Pulse Ox O2 Delivery O2 Flow Rate FiO2 10/22/24 09:00 97.8 72 20 128/61 (83) 96 97.8 10/22/24 08:00 Nasal Cannula* 2 28 Total Intake and Output 10/21/24 10/21/24 10/22/24 15:00 23:00 07:00 Intake Total 1000 ml 600 ml Output Total 750 ml Balance 250 ml 600 ml medications Current Medications Medications Dose Ordered Sig/Conner Route Start Time Stop Time Status Last Admin Dose Admin Aspirin 81 mg DAILY PO 10/01/24 10:00 10/21/24 09:16 81 MG Gabapentin 300 mg HS PO 09/30/24 22:00 10/18/24 21:17 300 MG Carvedilol 6.25 mg BID PO 09/30/24 22:00 Hold 09/30/24 17:32 6.25 MG Ondansetron HCl 4 mg Q4HP PRN IV 09/30/24 15:45 Nitroglycerin 0.4 mg Q5MINP PRN SL 09/30/24 15:45 Pantoprazole Sodium 40 mg DAILY IV 10/01/24 10:00 10/21/24 09:20 40 MG Acetaminophen 650 mg Q6HP PRN NG 10/01/24 02:00 10/01/24 15:00 650 MG Furosemide 80 mg BIDD IV 10/02/24 07:30 10/21/24 18:19 80 MG Docusate Sodium 100 mg DAILY GT 10/05/24 10:00 10/13/24 08:08 100 MG Diagnostic Test (Pha) 1 strip Q6HR 10/04/24 12:00 10/22/24 11:45 1 STRIP Insulin Human Regular Q6HR SC 10/04/24 12:00 10/22/24 12:06 6 UNITS Dextrose 50 ml UD PRN IV 10/04/24 12:00 Polyethylene Glycol 17 gm DAILY PO 10/11/24 10:00 10/13/24 08:08 17 GM Sennosides 8.6 mg HS PO 10/10/24 22:00 10/18/24 21:16 8.6 MG Lorazepam 1 mg Q8HP PRN IV 10/19/24 01:15 Acetaminophen/ Hydrocodone Bitart 1 tab Q8HPRN PRN PO 10/21/24 23:45 10/22/24 00:43 1 TAB objective GENERAL: Alert and oriented x 2. No acute distress. EYES: PERRL, EOMI. Anicteric. HENT: Moist mucous membranes. LUNGS: Decreased air entry bilaterally. CARDIOVASCULAR: Irregular rate and rhythm. ABDOMEN: Soft, non-tender and non-distended. EXTREMITIES: No edema. SKIN: Warm, dry. laboratory and microbiology Laboratory Tests 10/21/24 09:50 10/19/24 12:55 Test 10/21/24 09:50 Range/Units Serum Glucose 253 #H 74-106 mg/dL Problem List Chest pain. NSTEMI. Atrial Fibrillation with RVR. CIARAN. Community acquired pneumonia. Acute on chronic systolic heart failure EF 10%. DM2 with hyperglycemia. Constipation. Anxiety. Acute respiratory failure. Assessment/Plan Continued all current supportive medical care. [place] for pain management. Aspirin. Diuretics with Lasix. Nitro SL. GI prophylactics. Additional plan as per the hospital course. Dietary Evaluation Review Comments: 1) Initiate Pro-Stat @ 30 mL qd. Flush 30 mL H2O AC/PC. 2) Increase TF to 35 mL/hr goal rate. TF rate will provide 1612 kcals, 83g Pro (including Pro-Stat), and 626 mL free H2O per 24 hrs. TF rate will meet ~ 79% estimated energy needs and 75% estimated protein needs 3) Initiate vitamin C @ 500 mg bid and zinc sulfate @ 220 mg qd for 7-10 days. 4) Consider Nephro-[place] @ 1 tb qd 5) Follow-up with nephrology, cardiology, pulmonology, and social work administrator 6) Continue to monitor I&O, labs, and skin integrity Expected Outcomes/Goals: 1) labs to improve 2) wound to improve 3) diet to advance 4) f/u in 2-3 days Plan discussed with: Other DESHAUN PETERSON MD October 22, 2024 14:26
[2024-10-22 17:00] VITALS: BP 100/53; PULSE 81; RESP 19; TEMP 97.5; O2SAT 99
[2024-10-22 20:00] VITALS: PULSE 77; PULSE 78; RESP 17; O2SAT 99
[2024-10-22 21:00] VITALS: BP 125/65; PULSE 78; RESP 17; TEMP 97.5; O2SAT 99
--- NOTE | 2024-10-22 21:32 | DVHPN2 ---
Progress Note - Dictate Date Seen: October 22, 2024 Has the PT tested + for MRSA If YES, has PT been informed?: No Medical Necessity Reason Pt with a Central, PICC or Fol: Yes The following are medically ne: Central Line, Venegas Catheter Reason for venegas catheter: Strict I&O Subjective Patient seen and examined at bedside. Breathing comfortably on room air. Overnight events reviewed. vital signs Vital Sign Date Time Temp Pulse Resp B/P (MAP) Pulse Ox O2 Delivery O2 Flow Rate FiO2 10/22/24 17:00 97.5 81 19 100/53 (69) 99 97.5 10/22/24 08:00 Nasal Cannula* 2 28 Total Intake and Output 10/21/24 10/21/24 10/22/24 15:00 23:00 07:00 Intake Total 1000 ml 600 ml Output Total 750 ml Balance 250 ml 600 ml medications Current Medications Medications Dose Ordered Sig/Conner Route Start Time Stop Time Status Last Admin Dose Admin Aspirin 81 mg DAILY PO 10/01/24 10:00 10/21/24 09:16 81 MG Gabapentin 300 mg HS PO 09/30/24 22:00 10/18/24 21:17 300 MG Carvedilol 6.25 mg BID PO 09/30/24 22:00 Hold 09/30/24 17:32 6.25 MG Ondansetron HCl 4 mg Q4HP PRN IV 09/30/24 15:45 Nitroglycerin 0.4 mg Q5MINP PRN SL 09/30/24 15:45 Pantoprazole Sodium 40 mg DAILY IV 10/01/24 10:00 10/21/24 09:20 40 MG Acetaminophen 650 mg Q6HP PRN NG 10/01/24 02:00 10/01/24 15:00 650 MG Furosemide 80 mg BIDD IV 10/02/24 07:30 10/21/24 18:19 80 MG Docusate Sodium 100 mg DAILY GT 10/05/24 10:00 10/13/24 08:08 100 MG Diagnostic Test (Pha) 1 strip Q6HR 10/04/24 12:00 10/22/24 11:45 1 STRIP Insulin Human Regular Q6HR SC 10/04/24 12:00 10/22/24 12:06 6 UNITS Dextrose 50 ml UD PRN IV 10/04/24 12:00 Polyethylene Glycol 17 gm DAILY PO 10/11/24 10:00 10/13/24 08:08 17 GM Sennosides 8.6 mg HS PO 10/10/24 22:00 10/18/24 21:16 8.6 MG Lorazepam 1 mg Q8HP PRN IV 10/19/24 01:15 Acetaminophen/ Hydrocodone Bitart 1 tab Q8HPRN PRN PO 10/21/24 23:45 10/22/24 17:33 1 TAB objective Gen.: Patient lying in bed in no apparent distress. Breathing on room air. Head: Normocephalic, atraumatic. Eyes: EOMI/PERRLA. Ears: Normal hearing. Normal anatomy. Neck/trachea: Trachea midline, supple. Nose: Normal external anatomy. Mouth: Moist mucous membranes. Chest: Decreased air entry bilaterally. No wheezing or rhonchi. Cardiovascular: Positive S1, positive S2. Regular rate and rhythm. Abdomen: Positive bowel sounds in all 4 quadrants. Soft, non-tender, non- distended. : Deferred. Rectal: Deferred. Skin: Warm, dry. Intact. Extremities: 2+ radial pulses bilaterally. No lower extremity edema. Neuro: Awake, alert, oriented x3. No gross motor or sensory deficits. Cranial nerves II through XII intact. Gait not assessed. laboratory and microbiology Laboratory Tests 10/21/24 09:50 10/19/24 12:55 Test 10/21/24 09:50 Range/Units Serum Glucose 253 #H 74-106 mg/dL Assessment/Plan Impression: Acute hypoxic respiratory failure Elevated troponin [id number] myocardial infarction Acute kidney injury, started on HD Syncope Cardiomyopathy EF 10% Substance abuse Events Patient seen at bedside. Breathing on room air Supplemental oxygen PRN Head of bed elevation Aspiration precautions. Incentive spirometry Continue antibiotics Pain control Avoid oversedation Hemodialysis per Nephrology- HD completed yesterday. Requires pressors while on hemodialysis Diurese with Lasix Monitor renal function Monitor electrolytes. Supplement as necessary. Monitor ins and outs. Wound care Protonix for GI prophylaxis Accu-Cheks, ISS Physical therapy Disposition per hospitalist Labs and imaging reviewed Plan: S/p extubation on 10/14/24 Supplemental oxygen PRN Titrate to keep O2 sats above 92% Blood cultures show no growth x5 days Sputum cultures grew Staph aureus, Pseudomonas aeruginosa, Klebsiella pneumoniae. Antibiotics Accu-Cheks, ISS. Monitor renal function Monitor electrolytes. Supplement as necessary. Monitor ins and outs. Maintain euvolemia. Echocardiogram reviewed Cardiology recs appreciated GI prophylaxis. DVT prophylaxis Prognosis: Poor given patient's multiple co-morbidities. Rest of plan per hospitalist and other consultants. Thank you, YOLANDA Fuller/YOLANDA Stacy, for allowing me to participate in this patient's care. Further recommendations will depend on the patient's clinical course. Please do not hesitate to contact me if you have any questions or concerns. This medical document was created using an electronic medical record system with [employer] dictation system. Although these documentations are being carefully reviewed, there may still be some phonetic and typographical changes. The errors are purely typographical, due to imperfection on the software program, and do not reflect any compromise in the patient's medical care. Dietary Evaluation Review Comments: 1) Initiate Pro-Stat @ 30 mL qd. Flush 30 mL H2O AC/PC. 2) Increase TF to 35 mL/hr goal rate. TF rate will provide 1612 kcals, 83g Pro (including Pro-Stat), and 626 mL free H2O per 24 hrs. TF rate will meet ~ 79% estimated energy needs and 75% estimated protein needs 3) Initiate vitamin C @ 500 mg bid and zinc sulfate @ 220 mg qd for 7-10 days. 4) Consider Nephro-[place] @ 1 tb qd 5) Follow-up with nephrology, cardiology, pulmonology, and social science instructor 6) Continue to monitor I&O, labs, and skin integrity Expected Outcomes/Goals: 1) labs to improve 2) wound to improve 3) diet to advance 4) f/u in 2-3 days Plan discussed with: Patient, Other (TATIANA Tena) YAW PLUNKETT MD October 22, 2024 21:32
[2024-10-23] VITALS (8 sets, daily range): BP systolic 113–135; BP diastolic 60–81; PULSE 62–81; RESP 17–20; TEMP 97.1–98; O2SAT 96–100
[2024-10-23 12:00] LABS: Potassium 3.7 mmol/L (3.5-5.1)
[2024-10-23 12:01] LABS: Anion Gap 9 (5-15); Carbon Dioxide 28 mmol/L (20-31)
[2024-10-23 12:02] LABS: Calcium 10.3 mg/dL (8.7-10.4)
[2024-10-23 12:03] LABS: Chloride 96 mmol/L (98-107); Sodium 133 mmol/L (136-145)
[2024-10-23 12:07] LABS: BUN/Creatinine Ratio 31.8 (10.0-20.0); Blood Urea Nitrogen 69 mg/dL (9-23); Glucose 221 mg/dL (74-106)
--- NOTE | 2024-10-23 14:43 | DVHPN2 ---
Progress Note - Dictate Date Seen: October 23, 2024 Has the PT tested + for MRSA If YES, has PT been informed?: No Medical Necessity Reason Pt with a Central, PICC or Fol: Yes The following are medically ne: Central Line, Venegas Catheter Reason for venegas catheter: Strict I&O Subjective Patient was seen and evaluated in follow up. Overnight, the patient was refusing medications and was agitated. Patient also refused HD this AM, patient began using profanity toward nursing staff. BS are in the 220's. Telemetry reviewed. vital signs Vital Sign Date Time Temp Pulse Resp B/P (MAP) Pulse Ox O2 Delivery O2 Flow Rate FiO2 10/23/24 09:00 97.7 66 20 113/66 (82) 100 97.7 10/23/24 08:00 Room Air* 0 21 Total Intake and Output 10/22/24 10/22/24 10/23/24 15:00 23:00 07:00 Intake Total 900 ml 750 ml Output Total 500 ml 200 ml Balance 400 ml 550 ml medications Current Medications Medications Dose Ordered Sig/Conner Route Start Time Stop Time Status Last Admin Dose Admin Aspirin 81 mg DAILY PO 10/01/24 10:00 10/23/24 08:25 81 MG Gabapentin 300 mg HS PO 09/30/24 22:00 10/18/24 21:17 300 MG Carvedilol 6.25 mg BID PO 09/30/24 22:00 Hold 09/30/24 17:32 6.25 MG Ondansetron HCl 4 mg Q4HP PRN IV 09/30/24 15:45 Nitroglycerin 0.4 mg Q5MINP PRN SL 09/30/24 15:45 Pantoprazole Sodium 40 mg DAILY IV 10/01/24 10:00 10/21/24 09:20 40 MG Acetaminophen 650 mg Q6HP PRN NG 10/01/24 02:00 10/01/24 15:00 650 MG Furosemide 80 mg BIDD IV 10/02/24 07:30 10/21/24 18:19 80 MG Docusate Sodium 100 mg DAILY GT 10/05/24 10:00 10/13/24 08:08 100 MG Diagnostic Test (Pha) 1 strip Q6HR 10/04/24 12:00 10/23/24 11:04 1 STRIP Insulin Human Regular Q6HR SC 10/04/24 12:00 10/23/24 11:07 4 UNITS Dextrose 50 ml UD PRN IV 10/04/24 12:00 Polyethylene Glycol 17 gm DAILY PO 10/11/24 10:00 10/13/24 08:08 17 GM Sennosides 8.6 mg HS PO 10/10/24 22:00 10/18/24 21:16 8.6 MG Lorazepam 1 mg Q8HP PRN IV 10/19/24 01:15 Acetaminophen/ Hydrocodone Bitart 1 tab Q8HPRN PRN PO 10/21/24 23:45 10/23/24 10:07 1 TAB objective GENERAL: Alert and oriented x 2. No acute distress. EYES: PERRL, EOMI. Anicteric. HENT: Moist mucous membranes. LUNGS: Decreased air entry bilaterally. CARDIOVASCULAR: Irregular rate and rhythm. ABDOMEN: Soft, non-tender and non-distended. EXTREMITIES: No edema. SKIN: Warm, dry. laboratory and microbiology Laboratory Tests 10/19/24 12:55 Test 10/23/24 11:00 Range/Units Serum Glucose Pending Problem List Chest pain. NSTEMI. Atrial Fibrillation with RVR. CIARAN. Community acquired pneumonia. Acute on chronic systolic heart failure EF 10%. DM2 with hyperglycemia. Constipation. Anxiety. Acute respiratory failure. Assessment/Plan Continued all current supportive medical care. [place] for pain management. Aspirin. Diuretics with Lasix. Nitro SL. GI prophylactics. Additional plan as per the hospital course. Dietary Evaluation Review Comments: 1) Initiate Pro-Stat @ 30 mL qd. Flush 30 mL H2O AC/PC. 2) Increase TF to 35 mL/hr goal rate. TF rate will provide 1612 kcals, 83g Pro (including Pro-Stat), and 626 mL free H2O per 24 hrs. TF rate will meet ~ 79% estimated energy needs and 75% estimated protein needs 3) Initiate vitamin C @ 500 mg bid and zinc sulfate @ 220 mg qd for 7-10 days. 4) Consider Nephro-[place] @ 1 tb qd 5) Follow-up with nephrology, cardiology, pulmonology, and social scientist 6) Continue to monitor I&O, labs, and skin integrity Expected Outcomes/Goals: 1) labs to improve 2) wound to improve 3) diet to advance 4) f/u in 2-3 days Plan discussed with: DESHAUN Jackson MD October 23, 2024 11:36
--- NOTE | 2024-10-23 16:05 | DVHPN2 ---
Subjective Patient continues to refuse treatment, belligerent. Reviewed: Care Plan, H&P, Labs, Medications, Previous Orders, Radiology, Other (Consultations) Changes from previous H/P or p: No Changes General: Per HPI Objective Vitals Vital Signs Date Time Temp Pulse Resp B/P (MAP) Pulse Ox O2 Delivery O2 Flow Rate FiO2 10/23/24 13:00 97.5 70 19 135/60 (85) 96 97.5 10/23/24 08:00 Room Air* 0 21 Intake/Output Intake and Output 10/23/24 07:00 Intake Total 1650 ml Output Total 700 ml Balance 950 ml Intake Oral 1650 ml Output Urine Total 700 ml # Voids 4 # Bowel Movements 2 General Appearance: Alert, Oriented X3, Cooperative, mild distress, Other HEENT: Atraumatic, PERRLA Lungs: Clear to auscultation, Normal air movement Cardiovascular: Normal S1, Normal S2, Other (Irregularly irregular) Abdomen: Soft Genitourinary: Other ([place]'s catheter) Musculoskeletal: Other (Motor removed) Extremities: Other (Dusky lower extremities) Neuro: Other (Intubated and sedated) Skin: Dry, Intact, Wounds (See nurse notes and pictures) Psych/Mental Status: Other (Intubated and sedated) Medications Current Medications Medications Dose Ordered Sig/Conner Route Start Time Stop Time Status Last Admin Dose Admin Aspirin 81 mg DAILY PO 10/01/24 10:00 10/23/24 08:25 81 MG Gabapentin 300 mg HS PO 09/30/24 22:00 10/18/24 21:17 300 MG Carvedilol 6.25 mg BID PO 09/30/24 22:00 Hold 09/30/24 17:32 6.25 MG Ondansetron HCl 4 mg Q4HP PRN IV 09/30/24 15:45 Nitroglycerin 0.4 mg Q5MINP PRN SL 09/30/24 15:45 Pantoprazole Sodium 40 mg DAILY IV 10/01/24 10:00 10/21/24 09:20 40 MG Acetaminophen 650 mg Q6HP PRN NG 10/01/24 02:00 10/01/24 15:00 650 MG Furosemide 80 mg BIDD IV 10/02/24 07:30 10/21/24 18:19 80 MG Docusate Sodium 100 mg DAILY GT 10/05/24 10:00 10/13/24 08:08 100 MG Diagnostic Test (Pha) 1 strip Q6HR 10/04/24 12:00 10/23/24 11:04 1 STRIP Insulin Human Regular Q6HR SC 10/04/24 12:00 10/23/24 11:07 4 UNITS Dextrose 50 ml UD PRN IV 10/04/24 12:00 Polyethylene Glycol 17 gm DAILY PO 10/11/24 10:00 10/13/24 08:08 17 GM Sennosides 8.6 mg HS PO 10/10/24 22:00 10/18/24 21:16 8.6 MG Lorazepam 1 mg Q8HP PRN IV 10/19/24 01:15 Acetaminophen/ Hydrocodone Bitart 1 tab Q8HPRN PRN PO 10/21/24 23:45 10/23/24 10:07 1 TAB Laboratory Results Laboratory Tests 10/19/24 12:55 10/23/24 11:00 Chemistry Test 10/23/24 11:00 Calcium Level 10.3 mg/dL (8.7-10.4) Urinalysis Test 10/01/24 00:36 Urine Creatinine 241.60 mg/dL (30.0-125.0) H Urine Sodium 35 mmol/L (40-220) L Microbiology Microbiology Date/Time Source Procedure Growth Status 10/05/24 19:49 Blood Blood Culture - Final NO GROWTH AFTER 5 DAYS OF INCUBATION. Complete 10/03/24 15:40 Nose MRSA Screen - Final Complete 10/01/24 00:36 Urine - [place] Urine Culture - Final Complete Labs and/or images reviewed: Labs reviewed by me, Image(s) reviewed by me Assessment/Plan Assessment/Plan Impression: -NSTEMI, probably type 2 secondary to amphetamine use -amphetamine use -cardiomyopathy -acute on chronic systolic heart failure with ejection fraction 10% -acute hypoxic respiratory failure -AFib/flutter with RVR -cardiogenic shock -acute kidney injury, vasomotor nephropathy -underlying CKD stage IIIb/four -leukocytosis, probable sirs -hypoglycemia -sacral decubitus ulcer Plan: Events: Patient refused having tunneled dialysis catheter placed yesterday, 2nd incident. Patient also found to have ALOC after going downstairs to smoke yesterday. Long discussion made with the patient's next of kin, mother regarding patient's behaviors and unwillingness to be compliant with medical treatment. Long discussion made with the patient regarding plan of care including possible discharge given his persistent noncompliance, belligerent behavior. Patient decided to change his behavior and allowed hemodialysis today. Long discussion made with secondary social studies teacher regarding discharge planning. Awaiting their response. -wound care consultation -long discussion made with the patient regarding discharge planning. Patient requesting to go to [facility] facility. Social service consultation -cardiology consultation: Recommendations reviewed -nephrology consultation-HD per their recommendations -PUD, DVT prophylaxis -physical therapy -plans for HD tunneled cath today. -repeat UDS -risk management is to be notified the patient's behaviors. Critical care time spent with patient discussing and formulating plan of care: 40 minutes. This does not include time spent performing procedures. This medical document was created using an electronic medical record system with [employer] dictation system. Although this document has been carefully reviewed, there may still be some phonetic and typographical errors. These areas are purely typographical due to imperfections of the software programs, and do not reflect any compromise in the patient's medical care. Plan discussed with: Patient, Other (RN, MOther) Date of Service: October 23, 2024 Billing Provider: MARK LILLY NP Common Visit Codes: [id number] INP/OBS CARE(HIGH) MARK LILLY NP October 23, 2024 16:05
--- NOTE | 2024-10-23 20:25 | DVHPN2 ---
Progress Note Date Seen: October 23, 2024 Has the PT tested + for MRSA If YES, has PT been informed?: No Medical Necessity Reason Pt with a Central, PICC or Fol: Yes The following are medically ne: Central Line, Venegas Catheter Reason for venegas catheter: Strict I&O Subjective Patient reports: Other ([place] pt) Review of Systems: Deferred Objective vital signs Vital Sign Date Time Temp Pulse Resp B/P (MAP) Pulse Ox O2 Delivery O2 Flow Rate FiO2 10/23/24 17:00 97.1 67 20 115/65 (82) 96 97.1 10/23/24 08:00 Room Air* 0 21 Total Intake and Output 10/22/24 10/22/24 10/23/24 15:00 23:00 07:00 Intake Total 900 ml 750 ml Output Total 500 ml 200 ml Balance 400 ml 550 ml medications Current Medications Medications Dose Ordered Sig/Conner Route Start Time Stop Time Status Last Admin Dose Admin Aspirin 81 mg DAILY PO 10/01/24 10:00 10/23/24 08:25 81 MG Gabapentin 300 mg HS PO 09/30/24 22:00 10/18/24 21:17 300 MG Carvedilol 6.25 mg BID PO 09/30/24 22:00 Hold 09/30/24 17:32 6.25 MG Ondansetron HCl 4 mg Q4HP PRN IV 09/30/24 15:45 Nitroglycerin 0.4 mg Q5MINP PRN SL 09/30/24 15:45 Pantoprazole Sodium 40 mg DAILY IV 10/01/24 10:00 10/21/24 09:20 40 MG Acetaminophen 650 mg Q6HP PRN NG 10/01/24 02:00 10/01/24 15:00 650 MG Furosemide 80 mg BIDD IV 10/02/24 07:30 10/21/24 18:19 80 MG Docusate Sodium 100 mg DAILY GT 10/05/24 10:00 10/13/24 08:08 100 MG Diagnostic Test (Pha) 1 strip Q6HR 10/04/24 12:00 10/23/24 18:13 1 STRIP Insulin Human Regular Q6HR SC 10/04/24 12:00 10/23/24 18:17 2 UNITS Dextrose 50 ml UD PRN IV 10/04/24 12:00 Polyethylene Glycol 17 gm DAILY PO 10/11/24 10:00 10/13/24 08:08 17 GM Sennosides 8.6 mg HS PO 10/10/24 22:00 10/18/24 21:16 8.6 MG Lorazepam 1 mg Q8HP PRN IV 10/19/24 01:15 Acetaminophen/ Hydrocodone Bitart 1 tab Q8HPRN PRN PO 10/21/24 23:45 10/23/24 10:07 1 TAB Examination: GENERAL:Normal laboratory and microbiology Laboratory Tests 10/23/24 11:00 10/19/24 12:55 Test 10/23/24 11:00 Range/Units Serum Glucose 221 H 74-106 mg/dL Microbiology Date/Time Source Procedure Growth Status 10/05/24 19:49 Blood Blood Culture - Final NO GROWTH AFTER 5 DAYS OF INCUBATION. Complete 10/03/24 15:40 Nose MRSA Screen - Final Complete 10/01/24 00:36 Urine - [place] Urine Culture - Final Complete Problem List/Assessment/Plan Problem List/Assessment/Plan Assessment/Plan Acute kidney injury likely ATN in the setting of shock requiring HD Septic shock resolved Chronic kidney disease stage IIIA Dilated cardiomyopathy Systolic heart failure (HFrEF 10%) NSTEMI likely type II Acute respiratory failure, extubated on 10/14/24 currently on room air Methamphetamine intoxication Hypokalemia Hypoglycemia Plan -hemodialysis today Pending tunneled cath--pt refusing several times if he dont agree for tunneled cath HD consider hospice for this non compliant drug seeking pt Poor prognosis given low EF Plan discussed with: Patient, Other Dietary Evaluation Review Comments: 1) Initiate Pro-Stat @ 30 mL qd. Flush 30 mL H2O AC/PC. 2) Increase TF to 35 mL/hr goal rate. TF rate will provide 1612 kcals, 83g Pro (including Pro-Stat), and 626 mL free H2O per 24 hrs. TF rate will meet ~ 79% estimated energy needs and 75% estimated protein needs 3) Initiate vitamin C @ 500 mg bid and zinc sulfate @ 220 mg qd for 7-10 days. 4) Consider Nephro-[place] @ 1 tb qd 5) Follow-up with nephrology, cardiology, pulmonology, and director social service 6) Continue to monitor I&O, labs, and skin integrity Expected Outcomes/Goals: 1) labs to improve 2) wound to improve 3) diet to advance 4) f/u in 2-3 days LUIZ RIDLEY MD October 23, 2024 20:25
--- NOTE | 2024-10-23 22:58 | DVHPN2 ---
Progress Note - Dictate Date Seen: October 23, 2024 Has the PT tested + for MRSA If YES, has PT been informed?: No Medical Necessity Reason Pt with a Central, PICC or Fol: Yes The following are medically ne: Central Line, Venegas Catheter Reason for venegas catheter: Strict I&O Subjective Patient seen and examined at bedside. Breathing comfortably on room air. Overnight events reviewed. vital signs Vital Sign Date Time Temp Pulse Resp B/P (MAP) Pulse Ox O2 Delivery O2 Flow Rate FiO2 10/23/24 21:00 98.0 62 17 120/67 (84) 99 98.0 10/23/24 08:00 Room Air* 0 21 Total Intake and Output 10/22/24 10/22/24 10/23/24 15:00 23:00 07:00 Intake Total 900 ml 750 ml Output Total 500 ml 200 ml Balance 400 ml 550 ml medications Current Medications Medications Dose Ordered Sig/Conner Route Start Time Stop Time Status Last Admin Dose Admin Aspirin 81 mg DAILY PO 10/01/24 10:00 10/23/24 08:25 81 MG Gabapentin 300 mg HS PO 09/30/24 22:00 10/18/24 21:17 300 MG Carvedilol 6.25 mg BID PO 09/30/24 22:00 Hold 09/30/24 17:32 6.25 MG Ondansetron HCl 4 mg Q4HP PRN IV 09/30/24 15:45 Nitroglycerin 0.4 mg Q5MINP PRN SL 09/30/24 15:45 Pantoprazole Sodium 40 mg DAILY IV 10/01/24 10:00 10/21/24 09:20 40 MG Acetaminophen 650 mg Q6HP PRN NG 10/01/24 02:00 10/01/24 15:00 650 MG Furosemide 80 mg BIDD IV 10/02/24 07:30 10/21/24 18:19 80 MG Docusate Sodium 100 mg DAILY GT 10/05/24 10:00 10/13/24 08:08 100 MG Diagnostic Test (Pha) 1 strip Q6HR 10/04/24 12:00 10/23/24 18:13 1 STRIP Insulin Human Regular Q6HR SC 10/04/24 12:00 10/23/24 18:17 2 UNITS Dextrose 50 ml UD PRN IV 10/04/24 12:00 Polyethylene Glycol 17 gm DAILY PO 10/11/24 10:00 10/13/24 08:08 17 GM Sennosides 8.6 mg HS PO 10/10/24 22:00 10/18/24 21:16 8.6 MG Lorazepam 1 mg Q8HP PRN IV 10/19/24 01:15 Acetaminophen/ Hydrocodone Bitart 1 tab Q8HPRN PRN PO 10/21/24 23:45 10/23/24 21:22 1 TAB objective Gen.: Patient lying in bed in no apparent distress. Breathing on room air. Head: Normocephalic, atraumatic. Eyes: EOMI/PERRLA. Ears: Normal hearing. Normal anatomy. Neck/trachea: Trachea midline, supple. Nose: Normal external anatomy. Mouth: Moist mucous membranes. Chest: Decreased air entry bilaterally. No wheezing or rhonchi. Cardiovascular: Positive S1, positive S2. Regular rate and rhythm. Abdomen: Positive bowel sounds in all 4 quadrants. Soft, non-tender, non- distended. : Deferred. Rectal: Deferred. Skin: Warm, dry. Intact. Extremities: 2+ radial pulses bilaterally. No lower extremity edema. Neuro: Awake, alert, oriented x3. No gross motor or sensory deficits. Cranial nerves II through XII intact. Gait not assessed. laboratory and microbiology Laboratory Tests 10/23/24 11:00 10/19/24 12:55 Test 10/23/24 11:00 Range/Units Serum Glucose 221 H 74-106 mg/dL Assessment/Plan Impression: Acute hypoxic respiratory failure Elevated troponin Aom-CO-yryrltsqb myocardial infarction Acute kidney injury, started on HD Syncope Cardiomyopathy EF 10% Substance abuse Events Patient seen at bedside. Breathing on room air Supplemental oxygen PRN Head of bed elevation Aspiration precautions. Incentive spirometry Continue antibiotics Pain control Avoid oversedation Hemodialysis per Nephrology- HD completed, 1 liter removed Refused Lasix Monitor renal function Monitor electrolytes. Supplement as necessary. Monitor ins and outs. Wound care Protonix for GI prophylaxis Accu-Cheks, ISS Continue physical therapy Disposition per hospitalist Labs and imaging reviewed Plan: S/p extubation on 10/14/24 Supplemental oxygen PRN Titrate to keep O2 sats above 92% Blood cultures showed no growth x5 days Sputum cultures grew Staph aureus, Pseudomonas aeruginosa, Klebsiella pneumoniae. Antibiotics Accu-Cheks, ISS. Monitor renal function Monitor electrolytes. Supplement as necessary. Monitor ins and outs. Maintain euvolemia. Echocardiogram reviewed Cardiology recs appreciated GI prophylaxis. DVT prophylaxis Prognosis: Poor given patient's multiple co-morbidities. Rest of plan per hospitalist and other consultants. Thank you, YOLANDA Fluler/YOLANDA Stacy, for allowing me to participate in this patient's care. Further recommendations will depend on the patient's clinical course. Please do not hesitate to contact me if you have any questions or concerns. This medical document was created using an electronic medical record system with [employer] dictation system. Although these documentations are being carefully reviewed, there may still be some phonetic and typographical changes. The errors are purely typographical, due to imperfection on the software program, and do not reflect any compromise in the patient's medical care. Dietary Evaluation Review Comments: 1) Initiate Pro-Stat @ 30 mL qd. Flush 30 mL H2O AC/PC. 2) Increase TF to 35 mL/hr goal rate. TF rate will provide 1612 kcals, 83g Pro (including Pro-Stat), and 626 mL free H2O per 24 hrs. TF rate will meet ~ 79% estimated energy needs and 75% estimated protein needs 3) Initiate vitamin C @ 500 mg bid and zinc sulfate @ 220 mg qd for 7-10 days. 4) Consider Nephro-[place] @ 1 tb qd 5) Follow-up with nephrology, cardiology, pulmonology, and social insurance analyst 6) Continue to monitor I&O, labs, and skin integrity Expected Outcomes/Goals: 1) labs to improve 2) wound to improve 3) diet to advance 4) f/u in 2-3 days Plan discussed with: Patient, Other (TATIANA Tena) YAW PLUNKETT MD October 23, 2024 22:58
[2024-10-24 01:00] VITALS: BP 104/68; PULSE 66; RESP 17; TEMP 98; O2SAT 98
[2024-10-24 04:37] VITALS: BP 113/50; PULSE 64; RESP 17; TEMP 97.9; O2SAT 99
[2024-10-24] MEDS: ALBUMIN 25% 100 ML IV ONE (07:30)
[2024-10-24] MEDS: SODIUM CHL 0.9% 1000 ML BAG XX ONE (07:31)
[2024-10-24 08:00] VITALS: PULSE 62; RESP 16; O2SAT 99
[2024-10-24 09:00] VITALS: BP 132/78; PULSE 68; RESP 18; TEMP 98.1; O2SAT 99
[2024-10-24 10:27] LABS: INR 1.04 (0.9-1.15); Partial Thromboplastin Time 27.9 SEC (24.5-34.5)
--- NOTE | 2024-10-24 12:13 | DVHPN2 ---
Subjective Patient refused tunneled dialysis catheter again today. Patient continues to refuse multiple modalities of care. Reviewed: Care Plan, H&P, Labs, Medications, Previous Orders, Radiology, Other (Consultations) Changes from previous H/P or p: No Changes General: Per HPI Objective Vitals Vital Signs Date Time Temp Pulse Resp B/P (MAP) Pulse Ox O2 Delivery O2 Flow Rate FiO2 10/24/24 09:00 98.1 68 18 132/78 (96) 99 98.1 10/23/24 20:00 Room Air* 0 21 Intake/Output Intake and Output 10/24/24 07:00 Intake Total 1210 ml Output Total 200 ml Balance 1010 ml Intake Oral 1210 ml Output Urine Total 200 ml # Voids 5 # Bowel Movements 2 General Appearance: Alert, Oriented X3, Cooperative, mild distress, Other HEENT: Atraumatic, PERRLA Lungs: Clear to auscultation, Normal air movement Cardiovascular: Normal S1, Normal S2, Other (Irregularly irregular) Abdomen: Soft Genitourinary: Other ([place]'s catheter) Musculoskeletal: Other (Motor removed) Extremities: Other (Dusky lower extremities) Neuro: Other (Intubated and sedated) Skin: Dry, Intact, Wounds (See nurse notes and pictures) Psych/Mental Status: Other (Intubated and sedated) Medications Current Medications Medications Dose Ordered Sig/Conner Route Start Time Stop Time Status Last Admin Dose Admin Aspirin 81 mg DAILY PO 10/01/24 10:00 10/24/24 10:00 81 MG Gabapentin 300 mg HS PO 09/30/24 22:00 10/18/24 21:17 300 MG Carvedilol 6.25 mg BID PO 09/30/24 22:00 Hold 09/30/24 17:32 6.25 MG Ondansetron HCl 4 mg Q4HP PRN IV 09/30/24 15:45 Nitroglycerin 0.4 mg Q5MINP PRN SL 09/30/24 15:45 Pantoprazole Sodium 40 mg DAILY IV 10/01/24 10:00 10/24/24 10:00 40 MG Acetaminophen 650 mg Q6HP PRN NG 10/01/24 02:00 10/01/24 15:00 650 MG Furosemide 80 mg BIDD IV 10/02/24 07:30 10/24/24 06:44 80 MG Docusate Sodium 100 mg DAILY GT 10/05/24 10:00 10/13/24 08:08 100 MG Diagnostic Test (Pha) 1 strip Q6HR 10/04/24 12:00 10/24/24 06:00 1 STRIP Insulin Human Regular Q6HR SC 10/04/24 12:00 10/24/24 06:43 3 UNITS Dextrose 50 ml UD PRN IV 10/04/24 12:00 Polyethylene Glycol 17 gm DAILY PO 10/11/24 10:00 10/13/24 08:08 17 GM Sennosides 8.6 mg HS PO 10/10/24 22:00 10/18/24 21:16 8.6 MG Lorazepam 1 mg Q8HP PRN IV 10/19/24 01:15 Acetaminophen/ Hydrocodone Bitart 1 tab Q8HPRN PRN PO 10/21/24 23:45 10/24/24 10:13 1 TAB Laboratory Results Laboratory Tests 10/19/24 12:55 10/23/24 11:00 Coagulation Test 10/24/24 09:52 Prothrombin Time 11.0 sec (9.3-11.8) Prothrombin Time INR 1.04 (0.9-1.15) Activated Partial Thromboplast Time 27.9 SEC (24.5-34.5) Urinalysis Test 10/01/24 00:36 Urine Creatinine 241.60 mg/dL (30.0-125.0) H Urine Sodium 35 mmol/L (40-220) L Microbiology Microbiology Date/Time Source Procedure Growth Status 10/05/24 19:49 Blood Blood Culture - Final NO GROWTH AFTER 5 DAYS OF INCUBATION. Complete 10/03/24 15:40 Nose MRSA Screen - Final Complete 10/01/24 00:36 Urine - [place] Urine Culture - Final Complete Labs and/or images reviewed: Labs reviewed by me, Image(s) reviewed by me Assessment/Plan Assessment/Plan Impression: -NSTEMI, probably type 2 secondary to amphetamine use -amphetamine use -cardiomyopathy -acute on chronic systolic heart failure with ejection fraction 10% -acute hypoxic respiratory failure -AFib/flutter with RVR -cardiogenic shock -acute kidney injury, vasomotor nephropathy -underlying CKD stage IIIb/four -leukocytosis, probable sirs -hypoglycemia -sacral decubitus ulcer Plan: Events: Patient refused having tunneled dialysis catheter again today, 3rd incident. Long discussion made with hand decorator regarding patient being a high risk for outpatient hemodialysis as well as patient refusing to have tunneled dialysis catheter placement. At this time Dr. Guillen agrees that the tunneled dialysis catheter can be removed and patient can be discharged from their services. Patient reports that after he is discharged he plans on driving his car into another car. Primary nurse, Maggie was bedside when he made this comment. Psychiatry consultation will be obtained for possible suicidal ideation. -wound care consultation -long discussion made with the patient regarding discharge planning. Patient requesting to go to retirement facility. Social service consultation -cardiology consultation: Recommendations reviewed -nephrology consultation-HD per their recommendations -PUD, DVT prophylaxis -physical therapy -repeat UDS -risk management is to be notified the patient's behaviors. Critical care time spent with patient discussing and formulating plan of care: 40 minutes. This does not include time spent performing procedures. This medical document was created using an electronic medical record system with [employer] dictation system. Although this document has been carefully reviewed, there may still be some phonetic and typographical errors. These areas are purely typographical due to imperfections of the software programs, and do not reflect any compromise in the patient's medical care. Plan discussed with: Patient, Other (RN) Date of Service: October 24, 2024 Billing Provider: MARK LILLY NP Common Visit Codes: 84984-[id number] INP/OBS CARE(HIGH) Secondary Visit Codes: 53372-[id number] CARE PLAN 30 MINUTES MARK LILLY NP October 24, 2024 12:13
--- NOTE | 2024-10-24 12:35 | DVHPN2 ---
Progress Note - Dictate Date Seen: October 24, 2024 Has the PT tested + for MRSA If YES, has PT been informed?: No Medical Necessity Reason Pt with a Central, PICC or Fol: Yes The following are medically ne: Central Line, Venegas Catheter Reason for venegas catheter: Strict I&O Subjective Patient was seen and evaluated in follow up. Patient refused tunneled dialysis catheter again today. Dr. Guillen agrees that the tunneled dialysis catheter can be removed and patient can be discharged from their services. Per chart review, the patient stated that once he is discharged he plans on driving his car into another car. Patient is pending psychiatry consultation for possible suicidal ideation. Patient continues to refuse multiple modalities of care. Telemetry reviewed. vital signs Vital Sign Date Time Temp Pulse Resp B/P (MAP) Pulse Ox O2 Delivery O2 Flow Rate FiO2 10/24/24 09:00 98.1 68 18 132/78 (96) 99 98.1 10/23/24 20:00 Room Air* 0 21 Total Intake and Output 10/23/24 10/23/24 10/24/24 15:00 23:00 07:00 Intake Total 460 ml 750 ml Output Total 200 ml Balance 460 ml 550 ml medications Current Medications Medications Dose Ordered Sig/Conner Route Start Time Stop Time Status Last Admin Dose Admin Aspirin 81 mg DAILY PO 10/01/24 10:00 10/24/24 10:00 81 MG Gabapentin 300 mg HS PO 09/30/24 22:00 10/18/24 21:17 300 MG Carvedilol 6.25 mg BID PO 09/30/24 22:00 Hold 09/30/24 17:32 6.25 MG Ondansetron HCl 4 mg Q4HP PRN IV 09/30/24 15:45 Nitroglycerin 0.4 mg Q5MINP PRN SL 09/30/24 15:45 Pantoprazole Sodium 40 mg DAILY IV 10/01/24 10:00 10/24/24 10:00 40 MG Acetaminophen 650 mg Q6HP PRN NG 10/01/24 02:00 10/01/24 15:00 650 MG Furosemide 80 mg BIDD IV 10/02/24 07:30 10/24/24 06:44 80 MG Docusate Sodium 100 mg DAILY GT 10/05/24 10:00 10/13/24 08:08 100 MG Diagnostic Test (Pha) 1 strip Q6HR 10/04/24 12:00 10/24/24 06:00 1 STRIP Insulin Human Regular Q6HR SC 10/04/24 12:00 10/24/24 06:43 3 UNITS Dextrose 50 ml UD PRN IV 10/04/24 12:00 Polyethylene Glycol 17 gm DAILY PO 10/11/24 10:00 10/13/24 08:08 17 GM Sennosides 8.6 mg HS PO 10/10/24 22:00 10/18/24 21:16 8.6 MG Lorazepam 1 mg Q8HP PRN IV 10/19/24 01:15 Acetaminophen/ Hydrocodone Bitart 1 tab Q8HPRN PRN PO 10/21/24 23:45 10/24/24 10:13 1 TAB objective GENERAL: Alert and oriented x 2. No acute distress. EYES: PERRL, EOMI. Anicteric. HENT: Moist mucous membranes. LUNGS: Decreased air entry bilaterally. CARDIOVASCULAR: Irregular rate and rhythm. ABDOMEN: Soft, non-tender and non-distended. EXTREMITIES: No edema. SKIN: Warm, dry. laboratory and microbiology Laboratory Tests 10/23/24 11:00 10/19/24 12:55 Test 10/23/24 11:00 Range/Units Serum Glucose 221 H 74-106 mg/dL Problem List Chest pain. NSTEMI. Atrial Fibrillation with RVR. CIARAN. Community acquired pneumonia. Acute on chronic systolic heart failure EF 10%. DM2 with hyperglycemia. Constipation. Anxiety. Acute respiratory failure. Assessment/Plan Continued all current supportive medical care. [place] for pain management. Aspirin. Diuretics with Lasix. Nitro SL. GI prophylactics. Additional plan as per the hospital course. Dietary Evaluation Review Comments: 1) Initiate Pro-Stat @ 30 mL qd. Flush 30 mL H2O AC/PC. 2) Increase TF to 35 mL/hr goal rate. TF rate will provide 1612 kcals, 83g Pro (including Pro-Stat), and 626 mL free H2O per 24 hrs. TF rate will meet ~ 79% estimated energy needs and 75% estimated protein needs 3) Initiate vitamin C @ 500 mg bid and zinc sulfate @ 220 mg qd for 7-10 days. 4) Consider Nephro-[place] @ 1 tb qd 5) Follow-up with nephrology, cardiology, pulmonology, and social work manager 6) Continue to monitor I&O, labs, and skin integrity Expected Outcomes/Goals: 1) labs to improve 2) wound to improve 3) diet to advance 4) f/u in 2-3 days Plan discussed with: Other DESHAUN PETERSON MD October 24, 2024 11:57
--- NOTE | 2024-10-24 21:16 | DVHPN2 ---
Progress Note Date Seen: October 24, 2024 Has the PT tested + for MRSA If YES, has PT been informed?: No Medical Necessity Reason Pt with a Central, PICC or Fol: Yes The following are medically ne: Central Line, Venegas Catheter Reason for venegas catheter: Strict I&O Subjective Patient reports: Other (verbally rude,making racist comments, denies tunneled cath placement 3-4 times ,refusing HD time study statistician asking to stop 1 hr into treatment , uop looks better ) Review of Systems: Deferred Objective vital signs Vital Sign Date Time Temp Pulse Resp B/P (MAP) Pulse Ox O2 Delivery O2 Flow Rate FiO2 10/24/24 09:00 98.1 68 18 132/78 (96) 99 98.1 10/24/24 08:00 Room Air* 0 21 Total Intake and Output 10/23/24 10/23/24 10/24/24 15:00 23:00 07:00 Intake Total 460 ml 750 ml Output Total 200 ml Balance 460 ml 550 ml laboratory and microbiology Laboratory Tests 10/23/24 11:00 10/19/24 12:55 Test 10/23/24 11:00 Range/Units Serum Glucose 221 H 74-106 mg/dL Microbiology Date/Time Source Procedure Growth Status 10/05/24 19:49 Blood Blood Culture - Final NO GROWTH AFTER 5 DAYS OF INCUBATION. Complete 10/03/24 15:40 Nose MRSA Screen - Final Complete 10/01/24 00:36 Urine - [place] Urine Culture - Final Complete Problem List/Assessment/Plan Problem List/Assessment/Plan Assessment/Plan Acute kidney injury likely ATN in the setting of shock requiring HD Septic shock resolved Chronic kidney disease stage IIIA Dilated cardiomyopathy Systolic heart failure (HFrEF 10%) NSTEMI likely type II Acute respiratory failure, extubated on 10/14/24 currently on room air Methamphetamine intoxication Hypokalemia Hypoglycemia Plan pt uop improved gfr better he is refusing tunneled cath placement,he is active meth abuser,,homeless situation noted given all circumstances he is not a custodial candidate for HD will hold HD for now and try medical management to see if renal function stable without hdd remove tank outpt CIARAN Plan discussed with: Patient Dietary Evaluation Review Comments: 1) Initiate Pro-Stat @ 30 mL qd. Flush 30 mL H2O AC/PC. 2) Increase TF to 35 mL/hr goal rate. TF rate will provide 1612 kcals, 83g Pro (including Pro-Stat), and 626 mL free H2O per 24 hrs. TF rate will meet ~ 79% estimated energy needs and 75% estimated protein needs 3) Initiate vitamin C @ 500 mg bid and zinc sulfate @ 220 mg qd for 7-10 days. 4) Consider Nephro-[place] @ 1 tb qd 5) Follow-up with nephrology, cardiology, pulmonology, and web content & social media manager 6) Continue to monitor I&O, labs, and skin integrity Expected Outcomes/Goals: 1) labs to improve 2) wound to improve 3) diet to advance 4) f/u in 2-3 days LUIZ RIDLEY MD October 24, 2024 21:16
--- NOTE | 2024-10-24 21:17 | DVHPN2 ---
Progress Note - Dictate Date Seen: October 24, 2024 Has the PT tested + for MRSA If YES, has PT been informed?: No Medical Necessity Reason Pt with a Central, PICC or Fol: Yes The following are medically ne: Central Line, Venegas Catheter Reason for venegas catheter: Strict I&O Subjective Patient seen and examined at bedside. Breathing comfortably on room air. Overnight events reviewed. vital signs Vital Sign Date Time Temp Pulse Resp B/P (MAP) Pulse Ox O2 Delivery O2 Flow Rate FiO2 10/24/24 09:00 98.1 68 18 132/78 (96) 99 98.1 10/24/24 08:00 Room Air* 0 21 Total Intake and Output 10/23/24 10/23/24 10/24/24 15:00 23:00 07:00 Intake Total 460 ml 750 ml Output Total 200 ml Balance 460 ml 550 ml objective Gen.: Patient lying in bed in no apparent distress. Breathing on room air. Head: Normocephalic, atraumatic. Eyes: EOMI/PERRLA. Ears: Normal hearing. Normal anatomy. Neck/trachea: Trachea midline, supple. Nose: Normal external anatomy. Mouth: Moist mucous membranes. Chest: Decreased air entry bilaterally. No wheezing or rhonchi. Cardiovascular: Positive S1, positive S2. Regular rate and rhythm. Abdomen: Positive bowel sounds in all 4 quadrants. Soft, non-tender, non- distended. : Deferred. Rectal: Deferred. Skin: Warm, dry. Intact. Extremities: 2+ radial pulses bilaterally. No lower extremity edema. Neuro: Awake, alert, oriented x3. No gross motor or sensory deficits. Cranial nerves II through XII intact. Gait not assessed. laboratory and microbiology Laboratory Tests 10/23/24 11:00 10/19/24 12:55 Test 10/23/24 11:00 Range/Units Serum Glucose 221 H 74-106 mg/dL Assessment/Plan Impression: Acute hypoxic respiratory failure Elevated troponin [id number] myocardial infarction Acute kidney injury, started on HD Syncope Cardiomyopathy EF 10% Substance abuse Events Patient seen at bedside. Breathing on room air Supplemental oxygen PRN Head of bed elevation Aspiration precautions. Incentive spirometry Hemodialysis catheter was removed Continue physical therapy Disposition per hospitalist. Note, patient left against medical advice. Refused to sign AMA forms. He was AAO x3, aware of risks of leaving AMA. Pain control Avoid oversedation Wound care Labs and imaging reviewed Plan: S/p extubation on 10/14/24 Supplemental oxygen PRN Titrate to keep O2 sats above 92% Blood cultures showed no growth x5 days Sputum cultures grew Staph aureus, Pseudomonas aeruginosa, Klebsiella pneumoniae. Antibiotics Accu-Cheks, ISS. Monitor renal function Monitor electrolytes. Supplement as necessary. Monitor ins and outs. Maintain euvolemia. Echocardiogram reviewed Cardiology recs appreciated GI prophylaxis - Protonix. DVT prophylaxis Prognosis: Poor given patient's multiple co-morbidities. Rest of plan per hospitalist and other consultants. Thank you, YOLANDA Fuller/YOLANDA Stacy, for allowing me to participate in this patient's care. Further recommendations will depend on the patient's clinical course. Please do not hesitate to contact me if you have any questions or concerns. This medical document was created using an electronic medical record system with [employer] dictation system. Although these documentations are being carefully reviewed, there may still be some phonetic and typographical changes. The errors are purely typographical, due to imperfection on the software program, and do not reflect any compromise in the patient's medical care. Dietary Evaluation Review Comments: 1) Initiate Pro-Stat @ 30 mL qd. Flush 30 mL H2O AC/PC. 2) Increase TF to 35 mL/hr goal rate. TF rate will provide 1612 kcals, 83g Pro (including Pro-Stat), and 626 mL free H2O per 24 hrs. TF rate will meet ~ 79% estimated energy needs and 75% estimated protein needs 3) Initiate vitamin C @ 500 mg bid and zinc sulfate @ 220 mg qd for 7-10 days. 4) Consider Nephro-[place] @ 1 tb qd 5) Follow-up with nephrology, cardiology, pulmonology, and social work coordinator 6) Continue to monitor I&O, labs, and skin integrity Expected Outcomes/Goals: 1) labs to improve 2) wound to improve 3) diet to advance 4) f/u in 2-3 days Plan discussed with: Patient, Other (TATIANA Serrano) YAW PLUNKETT MD October 24, 2024 21:17
== END 2024-10-24 14:56 | disposition left against medical advice (07) | DRG 720 ==
LOC: ER 12:25 → OVERFLOW 15:38 → ICU WEST 10-03 15:58 → EAST 10-18 16:08 → TELE-EAST 10-18 16:27
PROVIDERS: ADMIT Nurse Practitioner Acute Care; ATTEND Nurse Practitioner Acute Care
PROC: 5A1955Z Respiratory Ventilation, Greater than 96 Consecutive Hours (ICD-10-PCS; principal; 2024-09-30)
PROC: 0BH18EZ Insertion of Endotracheal Airway into Trachea, Via Natural or Artificial Opening Endoscopic (ICD-10-PCS; 2024-09-30)
PROC: 06HY33Z Insertion of Infusion Device into Lower Vein, Percutaneous Approach (ICD-10-PCS; 2024-09-30)
PROC: 04HY32Z Insertion of Monitoring Device into Lower Artery, Percutaneous Approach (ICD-10-PCS; 2024-09-30)
PROC: 5A1D70Z Performance of Urinary Filtration, Intermittent, Less than 6 Hours Per Day (ICD-10-PCS; 2024-10-03)
PROC: 02HV33Z Insertion of Infusion Device into Superior Vena Cava, Percutaneous Approach (ICD-10-PCS; 2024-10-03)
PROC: B548ZZA Ultrasonography of Superior Vena Cava, Guidance (ICD-10-PCS; 2024-10-03)
PROC: 5A1D70Z Performance of Urinary Filtration, Intermittent, Less than 6 Hours Per Day (ICD-10-PCS; 2024-10-04)
PROC: 5A1D70Z Performance of Urinary Filtration, Intermittent, Less than 6 Hours Per Day (ICD-10-PCS; 2024-10-05)
PROC: 02HV33Z Insertion of Infusion Device into Superior Vena Cava, Percutaneous Approach (ICD-10-PCS; 2024-10-06)
PROC: B548ZZA Ultrasonography of Superior Vena Cava, Guidance (ICD-10-PCS; 2024-10-06)
PROC: 5A1D70Z Performance of Urinary Filtration, Intermittent, Less than 6 Hours Per Day (ICD-10-PCS; 2024-10-07)
PROC: 5A1D70Z Performance of Urinary Filtration, Intermittent, Less than 6 Hours Per Day (ICD-10-PCS; 2024-10-08)
PROC: 5A1D70Z Performance of Urinary Filtration, Intermittent, Less than 6 Hours Per Day (ICD-10-PCS; 2024-10-09)
PROC: 5A1D70Z Performance of Urinary Filtration, Intermittent, Less than 6 Hours Per Day (ICD-10-PCS; 2024-10-10)
PROC: 5A1D70Z Performance of Urinary Filtration, Intermittent, Less than 6 Hours Per Day (ICD-10-PCS; 2024-10-13)
PROC: 5A1D70Z Performance of Urinary Filtration, Intermittent, Less than 6 Hours Per Day (ICD-10-PCS; 2024-10-14)
PROC: 5A1D70Z Performance of Urinary Filtration, Intermittent, Less than 6 Hours Per Day (ICD-10-PCS; 2024-10-16)
PROC: 5A1D70Z Performance of Urinary Filtration, Intermittent, Less than 6 Hours Per Day (ICD-10-PCS; 2024-10-18)
PROC: 5A1D70Z Performance of Urinary Filtration, Intermittent, Less than 6 Hours Per Day (ICD-10-PCS; 2024-10-21)
PROC: 5A1D70Z Performance of Urinary Filtration, Intermittent, Less than 6 Hours Per Day (ICD-10-PCS; 2024-10-23)
DX: A41.9 Sepsis, unspecified organism (principal); J96.01 Acute respiratory failure with hypoxia; N17.0 Acute kidney failure with tubular necrosis; K72.00 Acute and subacute hepatic failure without coma; G92.8 Other toxic encephalopathy; R57.0 Cardiogenic shock; R65.21 Severe sepsis with septic shock; J15.9 Unspecified bacterial pneumonia; I42.0 Dilated cardiomyopathy; E11.649 Type 2 diabetes mellitus with hypoglycemia without coma; L89.159 Pressure ulcer of sacral region, unspecified stage; I50.23 Acute on chronic systolic (congestive) heart failure; I13.0 Hypertensive heart and chronic kidney disease with heart failure and stage 1 through stage 4 chronic kidney disease, or unspecified chronic kidney disease; D69.59 Other secondary thrombocytopenia; E11.22 Type 2 diabetes mellitus with diabetic chronic kidney disease; E11.65 Type 2 diabetes mellitus with hyperglycemia; E86.0 Dehydration; I48.91 Unspecified atrial fibrillation; K59.00 Constipation, unspecified; E87.6 Hypokalemia; J18.9 Pneumonia, unspecified organism; I21.A1 Myocardial infarction type 2; F17.200 Nicotine dependence, unspecified, uncomplicated; F15.129 Other stimulant abuse with intoxication, unspecified; E78.5 Hyperlipidemia, unspecified; N18.4 Chronic kidney disease, stage 4 (severe); F41.9 Anxiety disorder, unspecified; Z53.29 Procedure and treatment not carried out because of patient's decision for other reasons; Z79.82 Long term (current) use of aspirin; Z79.899 Other long term (current) drug therapy; Z82.49 Family history of ischemic heart disease and other diseases of the circulatory system; Z80.42 Family history of malignant neoplasm of prostate; Z79.2 Long term (current) use of antibiotics
CPT/HCPCS: 36415; 36556; 36569; 36600; 70450; 70486; 71045; 72125; 76937; 80048; 80053; 80074; 80202; 80307; 82570; 82805; 82962; 83735; 84100; 84300; 84443; 84484; 85007; 85014; 85018; 85025; 85027; 85610; 85730; 86850; 86900; 86901; 87040; 87070; 87077; 87081; 87086; 87186; 87205; 90935; 93005; 93306; 93925; 93970; 94002; 94003; 94640; 97163; 99291; 99292; G0378; J0330; J1642; J1815; J2470; J2543; J2704; P9047

== ENCOUNTER 2024-10-25 05:05 | Inpatient (IN) | payer OTHER ==
[~2024-10-25] VITALS: Ht 177.8 cm; Wt 81.3 kg
[2024-10-25 07:47] LABS: Chloride 100 mmol/L (98-107); Potassium 4.4 mmol/L (3.5-5.1); Sodium 138 mmol/L (136-145)
[2024-10-25 07:48] LABS: Anion Gap 9 (5-15); Carbon Dioxide 29 mmol/L (20-31)
[2024-10-25 07:52] LABS: Basophils # (auto) 0.1 10 ^3/uL (0-0.2); Basophils % (auto) 1.1 % (0.0-2.0); Eosinophils # (auto) 0.6 10 ^3/uL (0-0.8); Eosinophils % (auto) 5.6 % (0.0-7.0); Hematocrit 40.8 % (41.0-53.0); Hemoglobin 13.7 g/dL (13.5-17.5); Lymphocytes # (auto) 1.1 10 ^3/uL (0.4-5.4); Lymphocytes % (auto) 10.7 % (10.0-50.0); Mean Corpuscular Hemoglobin 32.8 pg (28.0-32.0); Mean Corpuscular Hgb Conc. 33.6 g/dL (32.0-36.0); Mean Corpuscular Volume 97.5 fL (80.0-100.0); Monocytes # (auto) 1.3 10 ^3/uL (0-1.3); Monocytes % (auto) 12.8 % (0.0-12.0); Neutrophils # (auto) 7.1 10 ^3/uL (1.6-8.6); Neutrophils % (auto) 69.8 % (37.0-80.0); Platelet Count (auto) 269 10^3/uL (140-450); Red Blood Cells 4.18 10^6/uL (4.5-5.90); White Blood Cell 10.2 10^3/uL (4.4-10.8)
[2024-10-25 07:53] LABS: BUN/Creatinine Ratio 27.6 (10.0-20.0)
[2024-10-25 07:55] LABS: Blood Urea Nitrogen 55 mg/dL (9-23); Calcium 10.8 mg/dL (8.7-10.4); Glucose 125 mg/dL (74-106)
[2024-10-25 08:00] VITALS: PULSE 73; RESP 16; O2SAT 97
--- NOTE | 2024-10-25 08:04 | ED.PDOC ---
History of Present Illness HPI Comments 59-year-old male presents to the ER with prior medical history anxiety, CHF, diabetes, high lipids, hypertension, neuropathy in the chief complaint wound check. Patient reports on being discharged yesterday with being admitted to from having a sore on his upper buttock. States that he was in a coma for a sun and after being out of the coma the patient has been not been able to take care for himself. Patient states on living at home and has a sore in his upper buttock area with numbness. Denies chills, fever, /V/D, SOB, CP. No other associated symptoms, modifiers, recent injuries or sick contacts present at this time. Chief Complaint: Wound Check Time Seen by MD: 06:40 Primary Care Provider: PATRICE Reviewed Notes: Nurses Notes, Medications, Allergies Allergies: Coded Allergies: NO KNOWN ALLERGIES (Unverified , 09/24/22) Home Meds Active Scripts Aspirin (Aspirin Low Dose) 81 Mg Tab, 81 MG PO DAILY for 30 Days, #30 TAB [facility] Carvedilol (Carvedilol) 6.25 Mg Tab, 1 TAB PO BID for 30 Days, #60 TAB 5 Refills Prov:[facility] 05/03/24 Furosemide (Furosemide 80 mg) 1 Tab Tab, 1 TAB PO BID for 30 Days, #60 TAB Prov:[facility] 05/03/24 Gabapentin (Gabapentin) 300 Mg Cap, 300 MG PO DAILY for 30 Days, #30 CAP [facility]24 Levofloxacin Hemihydrate (LEVOFLOXACIN) 750 Mg Tab, 750 MG PO DAILY for 5 Days, #5 TAB [facility] 05/03/24 Spironolactone (Spironolactone) 50 Mg Tab, 50 MG PO DAILY for 30 Days, #30 TAB [facility] 05/03/24 Atorvastatin Calcium (ATORVASTATIN CALCIUM) 40 Mg Tab, 40 MG PO HS for 30 Days, #30 TAB Prov:[facility] 05/03/24 Levofloxacin Hemihydrate (LEVOFLOXACIN) 750 Mg Tab, 750 MG PO DAILY for 5 Days, #5 TAB Prov[facility] 05/03/24 Furosemide (Lasix) 20 Mg Tb, 4 TAB PO BID for 30 Days, #240 TAB 3 Refills Prov:[facility] 05/03/24 Spironolactone (Aldactone) 25 Mg Tab, 50 MG PO DAILY for 30 Days, #60 TAB Prov:[facility] 05/03/24 Gabapentin (Gabapentin) 300 Mg Cap, 300 MG PO DAILY for 30 Days, #30 CAP Prov:[facility] 05/03/24 Carvedilol (COREG) 3.125 Mg Tab, 6.25 MG PO Q12HR for 30 Days, #120 TAB Prov:[facility] 05/03/24 Atorvastatin Calcium (ATORVASTATIN CALCIUM) 20 Mg Tab, 40 MG PO HS for 30 Days, #30 TAB Prov:[facility] 05/03/24 Aspirin (Aspirin Low Dose) 81 Mg Tab, 81 MG PO DAILY for 30 Days, #30 TAB Prov:[facility] 05/03/24 Reported Medications Spironolactone (Aldactone) 50 Mg Tab, 1 TAB PO DAILY, #30 TAB 3 Refills 07/02/23 Carvedilol (Coreg) 3.125 Mg Tab, PO, TAB 06/28/22 Atorvastatin Calcium (Lipitor) 10 Mg Tab, PO, TAB 06/28/22 Gabapentin (Gabapentin) 300 Mg Cap, 300 MG PO DAILY for 30 Days, MG 09/02/21 Furosemide (Furosemide) 80 Mg Tab, 1 TAB PO BID, #180 TAB 3 Refills 09/02/21 Aspirin (Aspirin Low Dose) 81 Mg Tab, 1 TAB PO DAILY 04/30/21 Information Source: Patient Mode of Arrival: Ambulatory Severity: Moderate Timing: Weeks Duration: Since onset Prehospital treatment: None Past Medical History PAST MEDICAL HISTORY: Anxiety, CHF, DM, High Lipids, HTN Past Medical History (Other): Neuropathy Surgical History: Denies all surgeries Family History Family History: Reviewed,noncontributory to illness, Unknown, Family hx of heart tha Social History Smoker: Quit Greater Than 1 Year, Cigarettes Alcohol: Unknown Drugs: Unknown Lives In: Home Constitutional: reports: others (Large gluteal sacral unstageable ulcer); denies: chills, diaphoresis, fatigue, fever, malaise, sweats, weakness EENTM: denies: blurred vision, double vision, ear bleeding, ear discharge, ear drainage, ear pain, ear ringing, eye pain, eye redness, hearing loss, mouth pain, mouth swelling, nasal discharge, nose bleeding, nose congestion, nose pain, photophobia, tearing, throat pain, throat swelling, voice changes, others Respiratory: denies: cough, hemoptysis, orthopnea, SOB at rest, shortness of breath, SOB with excertion, stridor, wheezing, others Cardiovascular: denies: chest pain, dizzy spells, diaphoresis, Dyspnea on exertion, edema, irregular heart beat, left arm pain, lightheadedness, palpitations, PND, syncope, others Gastrointestinal: denies: abdomen distended, abdominal pain, blood streaked bowels, constipated, diarrhea, dysphagia, difficulty swallowing, hematemesis, melena, nausea, poor appetite, poor fluid intake, rectal bleeding, rectal pain, vomiting, others Genitourinary: denies: burning, dysuria, flank pain, frequency, hematuria, incontinence, penile discharge, penile sore, pain, testicle pain, testicle swelling, urgency, others Neurological: denies: dizziness, fainting, headache, left sided numbness, left sided weakness, numbness, paresthesia, pre-existing deficit, right sided numbness, right sided weakness, seizure, speech problems, tingling, tremors, weakness, others Musculoskeletal: denies: back pain, gout, joint pain, joint swelling, muscle pain, muscle stiffness, neck pain, others Integumetry: denies: bruises, change in color, change in hair/nails, dryness, laceration, lesions, lumps, rash, wounds, others Allergic/Immunocompromised: denies: Difficulty Healing, Frequent Infections, Hives, Itching, others Hematologic/Lymphatic: denies: anemia, blood clots, easy bleeding, easy bruising, swollen glands, others Endocrine: denies: excessive hunger, excessive sweating, excessive thirst, excessive urination, flushing, intolerance to cold, intolerance to heat, unexplained weight gain, unexplained weight loss, others Psychiatric: denies: anxiety, bipolar disorder, depression, hopeless, panic disorder, schizophrenia, sleepless, suicidal, others All Other Systems: Reviewed and Negative Physical Exam General Appearance: No Apparent Distress, Normal HEENT: Normal ENT Inspection, Pharynx Normal, TMs Normal Neck: Full Range of Motion, Non-Tender, Normal, Normal Inspection Respiratory: Chest Non-Tender, Lungs Clear, No Accessory Muscle Use, No Respiratory Distress, Normal Breath Sounds Cardiovascular: No Edema, No JVD, No Murmur, No Gallop, Normal Peripheral Pulses, Regular Rate/Rhythm Breast Exam: Deferred Gastrointestinal: No Organomegaly, Non Tender, No Pulsatile Mass, Normal Bowel Sounds, Soft Genitalia: Deferred Pelvic: Deferred Rectal: Deferred, Other (Large gluteus sacral unstageable ulcer at the for buttock fold approximately 10 cm in diameter with yellow fibrinous slough covering it, actively draining clear fluid no evidence of surrounding erythema) Extremities: No calf tenderness, Normal capillary refill, Normal inspection, Normal range of motion, Non-tender, No pedal edema Musculoskeletal : Apperance: Normal Neurologic: Alert, 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 Was a procedure done?: No Differential Dx Considerations may include: Sacral decubital ulcer, acute kidney injury, cellulitis, infection X-Ray, Labs, Meds, VS Vital Signs Date Time Temp Pulse Resp B/P (MAP) Pulse Ox O2 Delivery O2 Flow Rate FiO2 10/25/24 08:00 80 10/25/24 08:00 98.1 73 16 120/52 (74) 98 98.1 10/25/24 08:00 73 16 97 Room Air* 0 21 10/25/24 05:18 98.2 100 19 157/94 (115) 100 98.2 Lab Test 10/25/24 09:17 10/25/24 07:13 Range/Units Lactic Acid Level 1.1 0.4-2.0 mmol/L White Blood Count 10.2 4.4-10.8 10^3/uL Red Blood Count 4.18 L 4.5-5.90 10^6/uL Hemoglobin 13.7 13.5-17.5 g/dL Hematocrit 40.8 L 41.0-53.0 % Mean Corpuscular Volume 97.5 80.0-100.0 fL Mean Corpuscular Hemoglobin 32.8 H 28.0-32.0 pg Mean Corpuscular Hemoglobin Concent 33.6 32.0-36.0 g/dL Red Cell Distribution Width 15.0 H 11.8-14.3 % Platelet Count 269 # 140-450 10^3/uL Mean Platelet Volume 8.3 6.9-10.8 fL Neutrophils (%) (Auto) 69.8 37.0-80.0 % Lymphocytes (%) (Auto) 10.7 10.0-50.0 % Monocytes (%) (Auto) 12.8 H 0.0-12.0 % Eosinophils (%) (Auto) 5.6 0.0-7.0 % Basophils (%) (Auto) 1.1 0.0-2.0 % Neutrophils # (Auto) 7.1 1.6-8.6 10 ^3/uL Lymphocytes # (Auto) 1.1 0.4-5.4 10 ^3/uL Monocytes # (Auto) 1.3 0-1.3 10 ^3/uL Eosinophils # (Auto) 0.6 0-0.8 10 ^3/uL Basophils # (Auto) 0.1 0-0.2 10 ^3/uL Nucleated Red Blood Cells 0.0 % Erythrocyte Sedimentation Rate 26 H 0-20 mm/hr Sodium Level 138 # 136-145 mmol/L Potassium Level 4.4 3.5-5.1 mmol/L Chloride Level 100 98-107 mmol/L Carbon Dioxide Level 29 20-31 mmol/L Anion Gap 9 5-15 Blood Urea Nitrogen 55 #H 9-23 mg/dL Creatinine 1.99 H 0.700-1.30 mg/dL Glomerular Filtration Rate Calc 38 >90 mL/min BUN/Creatinine Ratio 27.6 H 10.0-20.0 Serum Glucose 125 H 74-106 mg/dL Calcium Level 10.8 H 8.7-10.4 mg/dL Magnesium Level 1.8 1.6-2.6 mg/dL C-Reactive Protein High Sensitivity 0.46 <1.0 mg/dL Plasma/Serum Blood Alcohol < 3.0 <10 mg/dL 59-year-old male presents here for draining wound. He states he was just just started yesterday and plan was for wound care. However he states he was not given any instructions or supplies at time of discharge and there was no wound care that has been set up. He has a large sacral decubitus ulcer approximately 10 cm in diameter at the sacral gluteal upper fold. It does appear require some active debridement to remove slough. Additionally blood work has been done which does demonstrate mild acute kidney injury. At this time given it is Satu malia unable to arrange for wound care for his large ulcer at this time, hospitalist team has been contacted for admission. Time of 1ST Reevaluation: 07:10 Reevaluation 1ST: Unchanged Patient Education/Counseling: Diagnosis, Treatment, Prognosis Family Education/Counseling: No Family Present Departure 1 Departure Time of Disposition: 07:12 Impression: Primary Impression: Sacral decubitus ulcer Qualified Codes: L89.159 - Pressure ulcer of sacral region, unspecified stage Additional Impression: CIARAN (acute kidney injury) Disposition: 09 ADMITTED INPATIENT Condition: Fair Critical Care Note Critical Care Time?: No Stability Stability form required: No Heart Score Heart Score: Heart Score Response (Comments) Value History N/A 0 EKG N/A 0 Age N/A 0 Risk Factors N/A 0 Troponin N/A 0 Total 0 I personally scribed for JACQUELINE JUDD MD ([email or web address]) on 10/25/24 at 08:04. Electronically submitted by Jon Torres ([email or web address]). I personally scribed for JACQUELINE JUDD MD ([email or web address]) on 10/25/24 at 08:45. Electronically submitted by Jon Torres ([email or web address]). JACQUELINE JUDD MD October 25, 2024 08:04
[2024-10-25 09:37] LABS: Erythrocyte Sedimentation Rate 26 mm/hr (0-20)
[2024-10-25] MEDS ORDERED: DEXTROSE (50%) 50ML SYRG IV PRN (09:45)
[2024-10-25] MEDS ORDERED: MORPHINE SULFATE INJ 2 MG/ml SYRG IV PRN (09:45)
[2024-10-25] MEDS ORDERED: ACETAMINOPHEN 325 MG TAB PO PRN (09:45)
[2024-10-25] MEDS ORDERED: FOLIC ACID 1 MG TAB PO ONE (09:45)
--- NOTE | 2024-10-25 09:45 | DVHHP2 ---
History of Present Illness Reason for Visit: Coccyx wound History of Present Illness Jarocho Medrano is a 59-year-old male with past medical history of diabetes type 2, CHF, and neuropathy who presents to the ED with a coccyx wound that has pus draining for the last day. Patient reports that he was recently discharged from this hospital was supposed to go to a halfway facility but however could not find when so now he is living in his car. He reports the coccyx wound as 10/10 numb and constant. Patient denies any recent trauma or injury, recent sick contacts, recent travels, fever or chills, chest pain, shortness of breath, wheezing, abdominal pain, nausea, vomiting, or diarrhea. Cardiovascular: CHF Endocrine: Diabetes Past Medical History Neuropathy Past Surgical History: None Family History: Cancer, Other (Dad with prostate cancer, stomach cancer, and throat cancer now and mom with heart disease) Smoke: <1 pack per day ALCOHOL: heavy Drugs: Other (Methamphetamine) Lives: Homeless Domestic Violence: Neg Review of Systems Skin: Other (Pus draining from coccyx with discoloration and erythema) Allergies: Coded Allergies: NO KNOWN ALLERGIES (Unverified , 09/24/22) Medications Current Medications Medications Dose Ordered Sig/Conner Route Start Time Stop Time Status Last Admin Dose Admin Clindamycin Phosphate 50 ml @ 50 mls/hr Q8HR IV 10/25/24 09:45 UNV Diagnostic Test (Pha) 1 strip ACHS 10/25/24 11:30 UNV Insulin Human Regular ACHS SC 10/25/24 11:30 UNV Dextrose 50 ml UD PRN IV 10/25/24 09:45 UNV Acetaminophen/ Hydrocodone Bitart 1 tab Q4HP PRN PO 10/25/24 09:45 UNV Ondansetron HCl 4 mg Q4HP PRN IV 10/25/24 09:45 UNV Enoxaparin Sodium 40 mg DAILY SC 10/25/24 10:00 UNV Acetaminophen 650 mg Q6HP PRN PO 10/25/24 09:45 UNV Morphine Sulfate 2 mg Q4HPRN PRN IV 10/25/24 09:45 UNV Exam Vital Signs Vital Signs Date Time Temp Pulse Resp B/P (MAP) Pulse Ox O2 Delivery O2 Flow Rate FiO2 10/25/24 08:00 80 10/25/24 05:18 98.2 19 157/94 (115) 100 98.2 General Appearance: Alert, Oriented X3, Cooperative, No acute distress HEENT: Atraumatic, PERRLA, EOMI, Mucous membr. moist/pink Respiratory: Clear to auscultation, Normal air movement Cardiovascular: Regular rate, Normal S1, Normal S2, No murmurs Abdominal: Normal bowel sounds, Soft Extremities: Normal pulses Neuro: Normal speech, Strength at 5/5 X4 ext, Normal tone, Sensation intact Psych/Mental Status: Mental status NL, Mood NL Labs/Xrays Labs Test 10/25/24 09:17 10/25/24 07:13 Range/Units White Blood Count 10.2 4.4-10.8 10^3/uL Red Blood Count 4.18 L 4.5-5.90 10^6/uL Hemoglobin 13.7 13.5-17.5 g/dL Hematocrit 40.8 L 41.0-53.0 % Mean Corpuscular Volume 97.5 80.0-100.0 fL Mean Corpuscular Hemoglobin 32.8 H 28.0-32.0 pg Mean Corpuscular Hemoglobin Concent 33.6 32.0-36.0 g/dL Red Cell Distribution Width 15.0 H 11.8-14.3 % Platelet Count 269 # 140-450 10^3/uL Mean Platelet Volume 8.3 6.9-10.8 fL Neutrophils (%) (Auto) 69.8 37.0-80.0 % Lymphocytes (%) (Auto) 10.7 10.0-50.0 % Monocytes (%) (Auto) 12.8 H 0.0-12.0 % Eosinophils (%) (Auto) 5.6 0.0-7.0 % Basophils (%) (Auto) 1.1 0.0-2.0 % Neutrophils # (Auto) 7.1 1.6-8.6 10 ^3/uL Lymphocytes # (Auto) 1.1 0.4-5.4 10 ^3/uL Monocytes # (Auto) 1.3 0-1.3 10 ^3/uL Eosinophils # (Auto) 0.6 0-0.8 10 ^3/uL Basophils # (Auto) 0.1 0-0.2 10 ^3/uL Nucleated Red Blood Cells 0.0 % Erythrocyte Sedimentation Rate 26 H 0-20 mm/hr Sodium Level 138 # 136-145 mmol/L Potassium Level 4.4 3.5-5.1 mmol/L Chloride Level 100 98-107 mmol/L Carbon Dioxide Level 29 20-31 mmol/L Anion Gap 9 5-15 Blood Urea Nitrogen 55 #H 9-23 mg/dL Creatinine 1.99 H 0.700-1.30 mg/dL Glomerular Filtration Rate Calc 38 >90 mL/min BUN/Creatinine Ratio 27.6 H 10.0-20.0 Serum Glucose 125 H 74-106 mg/dL Calcium Level 10.8 H 8.7-10.4 mg/dL C-Reactive Protein High Sensitivity 0.46 <1.0 mg/dL Assessment/Plan Assessment/Plan Assessment Coccyx wound probable cellulitis rule out sepsis Meth use Tobacco use Heavy alcohol use Acute on chronic renal insufficiency History of diabetes History of neuropathy History of CHF Plan Admit to med surge Antiemetics Pain management Strict I&Os Daily weight Hemoglobin A1c ISS and Accu-Cheks IV antibiotics-clindamycin UA ESR Lactic level CRP Blood cultures [facility] protocol Wound consult Wound culture with Gram stain Home medications reconciled DVT prophylaxis-Lovenox PUD prophylaxis-PPIs Discussed plan of care with patient and nurse Counseled patient on cessation of tobacco use, EtOH abuse, and meth use Plan discussed with: Patient My Orders Orders - DEVAN KOVACS 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 Procedure Category Date Status Time Lactic Acid W/ Reflex LAB 10/25/24 In Process Order 08:55 Blood Culture MARY 10/25/24 In Process 08:55 Urinalysis LAB 10/25/24 Logged 08:55 Clindamycin 600mg Iv PHA 10/25/24 Logged (Cleocin Iv) 09:45 Wound Culture W/ Gs MARY 10/25/24 Logged 09:38 Hemoglobin A1c LAB 10/25/24 Logged 09:38 Glucose Blood PHA 10/25/24 Logged (Accu-Chek Comfort 11:30 Insulin R (Human) PHA 10/25/24 Logged (Insulin R) 11:30 Dextrose 50% Syringe PHA 10/25/24 Logged 09:45 Admit ADMIT 10/25/24 Transmitted 09:38 Allergies ANICETO 10/25/24 In Process 09:38 Code Status CODE 10/25/24 Transmitted 09:38 Hydrocodone-Acet PHA 10/25/24 Logged 5/325mg Tab ([place] 09:45 Ondansetron Hcl PHA 10/25/24 Logged (Zofran) 09:45 Enoxaparin Sodium PHA 10/25/24 Logged (Lovenox) 10:00 Complete Blood Count LAB 10/26/24 Verified 04:00 Comprehensive LAB 10/26/24 Verified Metabolic Panel 04:00 Cardiac DIET 10/25/24 Transmitted Diet-2gna,Lofat,Lochol Lunch Acetaminophen Tablet PHA 10/25/24 Logged (Tylenol Tablet) 09:45 Morphine Sulfate PHA 10/25/24 Logged Injection 09:45 Aspirin Enteric PHA 10/25/24 Transmitted Coated Tablet 10:00 Atorvastatin (Lipitor) PHA 10/25/24 Transmitted 22:00 Carvedilol Tablet PHA 10/25/24 Transmitted (Coreg Tablet) 10:00 Gabapentin Capsule PHA 10/25/24 Transmitted (Neurontin Capsule) 10:00 (Nf) Furosemide PHA 10/25/24 Transmitted 10:00 (Nf) Spironolactone PHA 10/25/24 Transmitted (Aldactone) 10:00 * Mechanical Supervisor CONS 10/25/24 Verified Consult Date of Service: October 25, 2024 Billing Provider: DEVAN KOVACS Common Visit Codes: [id number] INP/OBS CARE (HIGH) DEVAN KOVACS October 25, 2024 09:45
[2024-10-25 09:59] LABS: Urine Bacteria None Seen /hpf (None Seen)
[2024-10-25 10:01] LABS: Magnesium 1.8 mg/dL (1.6-2.6)
[2024-10-25 10:03] LABS: Blood Alcohol < 3.0 mg/dL (<10)
[2024-10-25 10:14] LABS: Urine Blood 1+ /uL (Negative); Urine Clarity Clear (Clear); Urine Color Light-Yellow (Yellow); Urine Protein, UAD TRACE (Negative); Urine Specific Gravity 1.014 (1.001-1.035); Urine Squamous Epithelial Cell None Seen /hpf (<5); Urine Urobilinogen Normal (Negative); Urine WBC 5 /HPF (0-3); Urine pH 5.5 (5.0-9.0)
[2024-10-25 10:24] LABS: Opiate Scree,Urine Neg (NEGATIVE)
[2024-10-25 10:28] LABS: Amphetamine Screen, Urine Pos (NEGATIVE); Barbiturate Scree,Urine Neg (NEGATIVE); Benzodiazephine Screen, Urine Neg (NEGATIVE); Cannabinoid Screen, Urine Neg (NEGATIVE); Cocaine Screen, Urine Neg (NEGATIVE); Phencyclidine Screen, Urine Neg (NEGATIVE)
[2024-10-25] MEDS: ASPirin-EC 81 mg tab PO SCH (10:32)
[2024-10-25] MEDS: MULTIPLE VITAMIN TAB PO SCH (10:32)
[2024-10-25] MEDS: GABAPENTIN 300 MG CAP PO SCH (10:32)
[2024-10-25] MEDS: THIAMINE HCL 100 MG TAB PO ONE (10:32)
[2024-10-25] MEDS: FUROSEMIDE 40 MG TAB PO SCH (10:33)
[2024-10-25] MEDS: CARVEDILOL 3.125 MG TAB PO SCH (10:33)
[2024-10-25] MEDS: SPIRONOLACTONE 25 MG TAB PO SCH (10:33)
[2024-10-25] MEDS: CLINDAMYCIN 600MG IV 50 ML IV SCH (10:34)
[2024-10-25] MEDS: ENOXAPARIN SOD 40 MG/0.4 ML SYRINGE SC SCH (10:34)
[2024-10-25] MEDS: FOLIC ACID 1 MG TAB PO SCH (10:34)
[2024-10-25 11:00] VITALS: BP 127/66; PULSE 65; RESP 18; TEMP 98.2; O2SAT 92
[2024-10-25] MEDS: ACCU-CHEK COMFORT CURVE STRIP VI SCH (11:56)
[2024-10-25] MEDS: InsuLIN REG 1unit/0.01ml Soln (100units/ml) SC SCH (12:16)
[2024-10-25 13:00] VITALS: BP 127/66; PULSE 65; RESP 20; TEMP 97.4; O2SAT 99
[2024-10-25] MEDS: PANTOPRAZOLE 40 MG/10 ML VIAL INJ IV SCH (14:07)
[2024-10-25] MEDS: HYDROcodone-ACET 5/325MG TAB PO PRN (14:32)
[2024-10-25 17:00] VITALS: BP 111/59; PULSE 65; RESP 20; TEMP 97.7; O2SAT 100
[2024-10-25 20:00] VITALS: RESP 18
[2024-10-25 21:00] VITALS: BP 110/64; PULSE 60; RESP 18; TEMP 97.5; O2SAT 99
[2024-10-25] MEDS: ATORVASTATIN 20 MG TAB PO SCH (22:03)
[2024-10-26] VITALS (8 sets, daily range): BP systolic 100–125; BP diastolic 42–72; PULSE 54–66; RESP 18–20; TEMP 97.3–98.7; O2SAT 60–100
[2024-10-26 07:33] LABS: Basophils # (auto) 0.1 10 ^3/uL (0-0.2); Basophils % (auto) 1.8 % (0.0-2.0); Eosinophils # (auto) 0.7 10 ^3/uL (0-0.8); Eosinophils % (auto) 10.7 % (0.0-7.0); Hemoglobin 11.8 g/dL (13.5-17.5); Lymphocytes # (auto) 1.3 10 ^3/uL (0.4-5.4); Lymphocytes % (auto) 18.7 % (10.0-50.0); Mean Corpuscular Hemoglobin 33.4 pg (28.0-32.0); Mean Corpuscular Hgb Conc. 34.6 g/dL (32.0-36.0); Mean Corpuscular Volume 96.4 fL (80.0-100.0); Monocytes % (auto) 14.2 % (0.0-12.0); Neutrophils # (auto) 3.8 10 ^3/uL (1.6-8.6); Neutrophils % (auto) 54.6 % (37.0-80.0); Platelet Count (auto) 244 10^3/uL (140-450); Red Blood Cells 3.53 10^6/uL (4.5-5.90); Red Cell Distribution Width 14.9 % (11.8-14.3); White Blood Cell 6.9 10^3/uL (4.4-10.8)
[2024-10-26 07:48] LABS: Alanine Aminotransferase 31 U/L (7-40); Albumin 3.7 g/dL (3.2-4.8); Alkaline Phosphatase 80 U/L (46-116); Anion Gap 11 (5-15); Aspartate Aminotransferase 24 U/L (13-40); BUN/Creatinine Ratio 32.5 (10.0-20.0); Bilirubin, Total 0.6 mg/dL (0.2-1.0); Calcium 9.2 mg/dL (8.7-10.4); Carbon Dioxide 29 mmol/L (20-31); Chloride 100 mmol/L (98-107); Potassium 3.7 mmol/L (3.5-5.1); Sodium 140 mmol/L (136-145); Total Protein 6.6 g/dL (5.7-8.2)
[2024-10-26 07:50] LABS: Blood Urea Nitrogen 62 mg/dL (9-23); Glucose 150 mg/dL (74-106)
--- NOTE | 2024-10-26 15:58 | DVHPN2 ---
Subjective Feels okay. Patient left AMA/eloped on . Apparently patient stayed in his car after discharge and until he came back to the ER the next day. Reviewed: Care Plan, H&P, Labs, Medications, Previous Orders, Other (Previous records) Changes from previous H/P or p: No Changes Skin: Other (Pus draining from coccyx with discoloration and erythema) Objective Vitals Vital Signs Date Time Temp Pulse Resp B/P (MAP) Pulse Ox O2 Delivery O2 Flow Rate FiO2 10/26/24 13:00 97.5 56 20 100/58 (72) 100 97.5 10/26/24 08:10 Room Air* 0 21 Intake/Output Intake and Output 10/26/24 07:00 Intake Total 1000 ml Output Total 400 ml Balance 600 ml Intake Oral 800 ml IV Total 200 ml Output Urine Total 400 ml # Voids 4 General Appearance: Alert, Oriented X3, Cooperative, No acute distress HEENT: Atraumatic Lungs: Clear to auscultation Cardiovascular: Regular rate Skin: Other (Large decubitus ulcers and bilateral gluteal and intergluteal areas/) Medications Current Medications Medications Dose Ordered Sig/Conner Route Start Time Stop Time Status Last Admin Dose Admin Clindamycin Phosphate 50 ml @ 50 mls/hr Q8HR IV 10/25/24 09:45 10/26/24 14:02 50 MLS/HR Diagnostic Test (Pha) 1 strip ACHS 10/25/24 11:30 10/26/24 11:08 1 STRIP Insulin Human Regular ACHS SC 10/25/24 11:30 10/26/24 06:12 3 UNITS Dextrose 50 ml UD PRN IV 10/25/24 09:45 Acetaminophen/ Hydrocodone Bitart 1 tab Q4HP PRN PO 10/25/24 09:45 10/26/24 09:17 1 TAB Ondansetron HCl 4 mg Q4HP PRN IV 10/25/24 09:45 Enoxaparin Sodium 40 mg DAILY SC 10/25/24 10:00 10/25/24 10:34 40 MG Acetaminophen 650 mg Q6HP PRN PO 10/25/24 09:45 Morphine Sulfate 2 mg Q4HPRN PRN IV 10/25/24 09:45 Aspirin 81 mg DAILY PO 10/25/24 10:00 10/26/24 09:16 81 MG Atorvastatin Calcium 40 mg HS PO 10/25/24 22:00 10/25/24 22:03 40 MG Carvedilol 6.25 mg Q12HR PO 10/25/24 10:00 10/26/24 09:19 6.25 MG Gabapentin 300 mg DAILY PO 10/25/24 10:00 10/26/24 09:18 300 MG Furosemide 80 mg BIDD PO 10/25/24 10:00 10/26/24 05:30 80 MG Spironolactone 50 mg DAILY PO 10/25/24 10:00 10/26/24 09:17 50 MG Folic Acid 1 mg DAILY PO 10/25/24 10:00 10/26/24 09:18 1 MG Multivitamins 1 tab DAILY PO 10/25/24 10:00 10/26/24 09:18 1 TAB Pantoprazole Sodium 40 mg DAILY IV 10/25/24 12:53 10/26/24 09:20 40 MG Levofloxacin 250 mg DAILY PO 10/27/24 10:00 Laboratory Results Laboratory Tests 10/26/24 06:31 Chemistry Test 10/26/24 06:31 Albumin 3.7 g/dL (3.2-4.8) Calcium Level 9.2 mg/dL (8.7-10.4) Total Protein 6.6 g/dL (5.7-8.2) LFT Test 10/26/24 06:31 Alanine Aminotransferase (ALT) 31 U/L (7-40) Alkaline Phosphatase 80 U/L (46-116) Aspartate Amino Transferase (AST) 24 U/L (13-40) Total Bilirubin 0.6 mg/dL (0.2-1.0) Urinalysis Test 10/25/24 09:51 Urine Color Light-yellow (Yellow) Urine Clarity Clear (Clear) Urine pH 5.5 (5.0-9.0) Urine Specific [place] 1.014 (1.001-1.035) Urine Protein Trace (Negative) H Urine Ketones Negative (Negative) Urine Blood 1+ /uL (Negative) H Urine Nitrite Negative (Negative) Urine Bilirubin Negative (Negative) Urine Urobilinogen Normal mg/dL (Negative) Urine Leukocyte Esterase Trace /uL (Negative) Urine RBC 7 /hpf (0 - 3) Urine Microscopic WBC 5 /HPF (0-3) H Urine Squamous Epithelial Cells None seen /hpf (<5) Urine Bacteria None seen /hpf (None Seen) Urine Glucose Normal mg/dL (Normal) Microbiology Microbiology Date/Time Source Procedure Growth Status 10/25/24 14:36 Coccyx Gram Stain - Final Resulted 10/25/24 14:36 Coccyx Wound Culture - Preliminary Resulted 10/25/24 09:17 Blood Blood Culture - Preliminary NO GROWTH AFTER 24 HOURS OF INCUBATION. Resulted Assessment/Plan Assessment/Plan Recent hospitalization for non-STEMI Bilateral gluteal and intergluteal decubitus ulcers Medical noncompliance/left AMA/eloped on 10/24/2024 AFib/flutter with RVR Recent acute on chronic systolic heart failure with EF 10% Recent respiratory failure Recent cardiogenic shock Acute kidney injury on top of chronic kidney disease Diabetes Anemia Urine drug screen positive for amphetamine Alcoholism Tobacco addiction Plan: Continue current plan of care. Antibiotics. Wound care. Further plan per orders Plan discussed with: Patient My Orders Orders - SERGEY CASTANEDA MD Procedure Category Date Status Time * Wound Consult CONS 10/26/24 Transmitted Levofloxacin Tablet PHA 10/27/24 In Process (Levaquin Tablet) 10:00 Date of Service: October 26, 2024 Billing Provider: SERGEY CASTANEDA MD Common Visit Codes: [id number] INP/OBS CARE(HIGH) SERGEY CASTANEDA MD October 26, 2024 15:58
[2024-10-26] MEDS: levoFLOXacin 500 MG TAB PO ONE (17:01)
[2024-10-27 01:00] VITALS: BP 113/63; PULSE 70; RESP 20; TEMP 97.8; O2SAT 99
[2024-10-27 05:00] VITALS: BP 103/32; PULSE 70; RESP 18; TEMP 97.8; O2SAT 97
[2024-10-27 08:00] VITALS: PULSE 56; RESP 16; O2SAT 100
[2024-10-27 08:39] VITALS: BP 138/62; PULSE 56; RESP 16; TEMP 97.8; O2SAT 100
[2024-10-27] MEDS: ONDANSETRON HCL 4 MG/2 ML VIAL IV PRN (09:07)
[2024-10-27] MEDS: levoFLOXacin 250 MG TAB PO SCH (09:57)
--- NOTE | 2024-10-27 11:00 | DVHDS2 ---
Discharge Summary Date of Admission October 25, 2024 at 09:38 Date of Discharge: October 27, 2024 Admitting Diagnosis Sacral wound Labs/Diagnostic Data: Laboratory Results Test 10/27/24 06:03 10/26/24 06:31 10/25/24 10:53 10/25/24 09:51 POC Glucose 213 mg/dl (70-106) White Blood Count 6.9 10^3/uL (4.4-10.8) Red Blood Count 3.53 10^6/uL (4.5-5.90) Hemoglobin 11.8 g/dL (13.5-17.5) Hematocrit 34.0 % (41.0-53.0) Mean Corpuscular Volume 96.4 fL (80.0-100.0) Mean Corpuscular Hemoglobin 33.4 pg (28.0-32.0) Mean Corpuscular Hemoglobin Concent 34.6 g/dL (32.0-36.0) Red Cell Distribution Width 14.9 % (11.8-14.3) Platelet Count 244 10^3/uL (140-450) Mean Platelet Volume 8.0 fL (6.9-10.8) Neutrophils (%) (Auto) 54.6 % (37.0-80.0) Lymphocytes (%) (Auto) 18.7 % (10.0-50.0) Monocytes (%) (Auto) 14.2 % (0.0-12.0) Eosinophils (%) (Auto) 10.7 % (0.0-7.0) Basophils (%) (Auto) 1.8 % (0.0-2.0) Neutrophils # (Auto) 3.8 10 ^3/uL (1.6-8.6) Lymphocytes # (Auto) 1.3 10 ^3/uL (0.4-5.4) Monocytes # (Auto) 1.0 10 ^3/uL (0-1.3) Eosinophils # (Auto) 0.7 10 ^3/uL (0-0.8) Basophils # (Auto) 0.1 10 ^3/uL (0-0.2) Nucleated Red Blood Cells 0.0 % Sodium Level 140 mmol/L (136-145) Potassium Level 3.7 mmol/L (3.5-5.1) Chloride Level 100 mmol/L (98-107) Carbon Dioxide Level 29 mmol/L (20-31) Anion Gap 11 (5-15) Blood Urea Nitrogen 62 mg/dL (9-23) Creatinine 1.91 mg/dL (0.700-1.30) Glomerular Filtration Rate Calc 39 mL/min (>90) BUN/Creatinine Ratio 32.5 (10.0-20.0) Serum Glucose 150 mg/dL (74-106) Calcium Level 9.2 mg/dL (8.7-10.4) Total Bilirubin 0.6 mg/dL (0.2-1.0) Aspartate Amino Transferase (AST) 24 U/L (13-40) Alanine Aminotransferase (ALT) 31 U/L (7-40) Alkaline Phosphatase 80 U/L (46-116) Total Protein 6.6 g/dL (5.7-8.2) Albumin 3.7 g/dL (3.2-4.8) Hemoglobin A1c 6.9 % A1C (<5.7) Urine Color Light-yellow (Yellow) Urine Clarity Clear (Clear) Urine pH 5.5 (5.0-9.0) Urine Specific [place] 1.014 (1.001-1.035) Urine Protein Trace (Negative) Urine Ketones Negative (Negative) Urine Blood 1+ /uL (Negative) Urine Nitrite Negative (Negative) Urine Bilirubin Negative (Negative) Urine Urobilinogen Normal mg/dL (Negative) Urine Leukocyte Esterase Trace /uL (Negative) Urine RBC 7 /hpf (0 - 3) Urine Microscopic WBC 5 /HPF (0-3) Urine Squamous Epithelial Cells None seen /hpf (<5) Urine Bacteria None seen /hpf (None Seen) Urine Glucose Normal mg/dL (Normal) Urine Opiates Screen Neg (NEGATIVE) Urine Fentanyl Screen Neg (NEGATIVE) Urine Barbiturates Screen Neg (NEGATIVE) Urine Phencyclidine Screen Neg (NEGATIVE) Urine Amphetamines Screen Pos (NEGATIVE) Urine Benzodiazepines Screen Neg (NEGATIVE) Urine Cocaine Screen Neg (NEGATIVE) Urine Cannabinoids Screen Neg (NEGATIVE) Test 10/25/24 09:17 10/25/24 07:13 Lactic Acid Level 1.1 mmol/L (0.4-2.0) Erythrocyte Sedimentation Rate 26 mm/hr (0-20) Magnesium Level 1.8 mg/dL (1.6-2.6) C-Reactive Protein High Sensitivity 0.46 mg/dL (<1.0) Plasma/Serum Blood Alcohol < 3.0 mg/dL (<10) Other Laboratory Tests 10/26/24 06:31 Brief Hx & Hospital Course: History of Present Illness Jarocho Medrano is a 59-year-old male with past medical history of diabetes type 2, CHF, and neuropathy who presents to the ED with a coccyx wound that has pus draining for the last day. Patient reports that he was recently discharged from this hospital was supposed to go to a long term facility but however could not find when so now he is living in his car. He reports the coccyx wound as 10/10 numb and constant. Patient denies any recent trauma or injury, recent sick contacts, recent travels, fever or chills, chest pain, shortness of breath, wheezing, abdominal pain, nausea, vomiting, or diarrhea. Course of hospitalization: Patient recently left the hospital [facility] on 10/24/2024 after a prolonged hospitalization including cardiopulmonary arrest, acute kidney injury requiring hemodialysis, as well as treatment for the patient's ejection fraction 10%. Patient was combative, noncompliant, and very rude with all hospital staff as well as initially improving and consenting for hemodialysis tunneled catheter, for which he decided to cancel on four different occasions. Patient was also found leaving [facility] smoking on previous admission, similar to this admission for which he was found somewhat lethargic this a.m. and wheeled back to his room by emergency room staff. Long discussion was made with the patient regarding plan of care. Given his noncompliance, repeat UDS being positive for amphetamine use, patient will be discharged home on guideline directed medical therapy for heart failure, anticoagulation for AFib, as well as social service consultation for referral to outpatient wound care. Preliminary wound cultures were reviewed. Patient is not septic, nor showing any signs of purulent out of control wound bed. White blood cell count now is normal. Patient will be discharged with Augmentin 875 mg p.o. b.i.d. x5 days. He is instructed to continue using foam wound dressing to sacral area and to be changed by the direction of outpatient wound care. Patient was also counseled on the need to stop using illicit drugs, smoking tobacco cigarettes, for which the patient states that he will continue to smoke what he wants to. Physical examination General: Alert and Oriented x3. No acute distress. Well-nourished. Eyes: EOMI. Anicteric. HENT: Moist mucous membranes. Lungs: Clear to auscultation bilaterally. No accessory muscle use. Cardiovascular: Regular rate and rhythm. No murmur. No JVD. Abdomen: Soft, non-tender and non-distended. No palpable masses. Extremities: No edema. Non-tender. Skin: No rashes or lesions. Warm. Sacral decubitus ulcer Neurologic: No focal neurological deficits. CN II-XII grossly intact, but not individually tested. Psychiatric: Cooperative. Appropriate mood and affect. Total time spent with patient discussing and formulating plan of care: 35 minutes. This medical document was created using an electronic medical record system with [employer] dictation system. Although this document has been carefully reviewed, there may still be some phonetic and typographical errors. These areas are purely typographical due to imperfections of the software programs, and do not reflect any compromise in the patient's medical care. Condition at Discharge: Poor Final Diagnosis/Problems List Sacral Wound Secondary diagnosis: -NSTEMI, probably type 2 secondary to amphetamine use -amphetamine use -cardiomyopathy -acute on chronic systolic heart failure with ejection fraction 10% -acute hypoxic respiratory failure -AFib/flutter with RVR -cardiogenic shock -acute kidney injury, vasomotor nephropathy -underlying CKD stage IIIb/four -leukocytosis, probable sirs -hypoglycemia -sacral decubitus ulcer Discharge Disposition: Home Discharge Instruct/Medications Diet: Cardiac 2g Na,low cholest, Renal Activity: See Comment Follow Up/Referral: Follow up with PCP in 1-2 Wound clinic Medications: Lasix 40mg po bid Coreg 3.125mg po bid Eliquis 5mg po bid Augmentin 875mg po bid x 5 days 36 Discharge Statement: "Patient was advised to return to the ER or call 911 if any headaches, dizziness, shortness of breath, chest pain, abdominal pain, bleeding, fevers, or worsening of medical condition. Patient was counseled about treatment plan, medications, possible side effects, patientverbalized understanding. All questions were answered to the best of my ability. This discharge took greater then 30 minutes in planning, reviewing documentation, counseling the patient, and discussing with other team members." ASSESSMENT ASSESSMENT Assessment Sacral Wound Date of Service: October 27, 2024 Billing Provider: MARK LILLY NP Common Visit Codes: 76256-SPX/OBS DISCH DAY >30min MARK LILLY NP October 27, 2024 11:00
[2024-10-27] MEDS ORDERED: CARV-214 OR (11:02)
[2024-10-27] MEDS ORDERED: FURO1TAB31 PO (11:02)
[2024-10-27] MEDS ORDERED: AUG875T PO (11:02)
[2024-10-27] MEDS ORDERED: APIX5TAB PO (11:02)
[2024-10-27 11:10] VITALS: BP 138/62; PULSE 56; RESP 16; TEMP 97.8; O2SAT 100
[2024-10-27 12:59] VITALS: BP 122/68; PULSE 61; RESP 18; TEMP 97.9; O2SAT 100
== END 2024-10-27 13:10 | disposition home or self-care (01) | DRG 380 ==
LOC: ER 05:05 → OVERFLOW 09:38 → WEST WING 11:05
PROVIDERS: ADMIT Nurse Practitioner Acute Care; ATTEND Nurse Practitioner Acute Care
DX: L89.152 Pressure ulcer of sacral region, stage 2 (principal); N17.0 Acute kidney failure with tubular necrosis; I50.23 Acute on chronic systolic (congestive) heart failure; I21.A1 Myocardial infarction type 2; I42.9 Cardiomyopathy, unspecified; R65.10 Systemic inflammatory response syndrome (SIRS) of non-infectious origin without acute organ dysfunction; J96.10 Chronic respiratory failure, unspecified whether with hypoxia or hypercapnia; I13.0 Hypertensive heart and chronic kidney disease with heart failure and stage 1 through stage 4 chronic kidney disease, or unspecified chronic kidney disease; E11.22 Type 2 diabetes mellitus with diabetic chronic kidney disease; D64.9 Anemia, unspecified; I48.91 Unspecified atrial fibrillation; E11.40 Type 2 diabetes mellitus with diabetic neuropathy, unspecified; F15.90 Other stimulant use, unspecified, uncomplicated; F10.20 Alcohol dependence, uncomplicated; E11.65 Type 2 diabetes mellitus with hyperglycemia; N18.4 Chronic kidney disease, stage 4 (severe); T43.625A Adverse effect of amphetamines, initial encounter; Z79.82 Long term (current) use of aspirin; Z79.899 Other long term (current) drug therapy; Z80.8 Family history of malignant neoplasm of other organs or systems; Z80.42 Family history of malignant neoplasm of prostate; Z80.0 Family history of malignant neoplasm of digestive organs; Z91.199 Patient's noncompliance with other medical treatment and regimen due to unspecified reason; Y92.89 Other specified places as the place of occurrence of the external cause; Y90.9 Presence of alcohol in blood, level not specified
CPT/HCPCS: 36415; 80048; 80053; 80307; 80320; 81001; 82962; 83036; 83605; 83735; 85025; 85652; 86141; 87040; 87077; 87081; 87186; 87205; G0378; J1815; J2405; J2470; J3490

== ENCOUNTER 2024-10-28 22:12 | Emergency (ER) | payer OTHER ==
[~2024-10-28] VITALS: Ht 177.8 cm; Wt 77.1 kg
[~2024-10-28 22:12] MED LIST changes: +APIX5TAB PO; +AUG875T PO; +CARV-214 OR; +FURO1TAB31 PO
[2024-10-29 00:29] VITALS: BP 131/83; PULSE 86; RESP 16; TEMP 98.5; O2SAT 96
[2024-10-29] MEDS ORDERED: AMOX875T4 PO (00:57)
--- NOTE | 2024-10-29 00:58 | ED.PDOC ---
History of Present Illness(SKN HPI Comments 59 year old male presents to ER with complaints of wound check. Patient states he was discharged from this hospital 2 days ago after being admitted for a sacral decubitus ulcer and presents to ER for wound check. Patient states he never picked up his antibiotics from the pharmacy upon discharge because he didn't know he was 'prescribed any". He reports 7/10 sacral pain and presents to ER ambulatory on arrival, with steady gait, in no distress with vitals stable. Denies fever, body aches, chills, changes in BM or any further symptoms/complaints Chief Complaint: Wound Check Time Seen by MD: 00:43 Primary Care Provider: PATRICE History of Present Illness: Nurses Notes, Medications, Allergies Allergies: Coded Allergies: NO KNOWN ALLERGIES (Unverified , 09/24/22) Home Meds Active Scripts Amoxicillin & Pot Clavulanate (Amoxicillin/Potassium Cla) 875 Mg Tab, 1 TAB PO BID for 7 Days, #14 TAB 0 Refills Prov:OZZIE BENNETT 10/29/24 Apixaban Base (ELIQUIS) 5 Mg Tab, 5 MG PO BID for 30 Days, #60 TAB Prov:[employer]ILLY [employer] 10/27/24 Carvedilol (COREG) 3.125 Mg Tab, 3.125 MG OR BID for 30 Days, #60 TAB Prov:MARK LILLY [employer]PER[employer] MANAGER 10/27/24 Furosemide (Lasix) 40 Mg Tab, 40 MG PO BID for 30 Days, #60 TAB Prov:MARK LILLY [employer] MANAGER 10/27/24 Amoxicillin & Pot Clavulanate (AUGMENTIN TABLET) 875 Mg Tb, 875 MG PO BID for 5 Days, #10 TAB Prov:MARK LILLY [employer]PER[employer] MANAGER 10/27/24 Aspirin (Aspirin Low Dose) 81 Mg Tab, 81 MG PO DAILY for 30 Days, #30 TAB Prov:MINISTERIO NAILS 05/03/24 Carvedilol (Carvedilol) 6.25 Mg Tab, 1 TAB PO BID for 30 Days, #60 TAB 5 Refills Prov:MINISTERIO NAILS 05/03/24 Furosemide (Furosemide 80 mg) 1 Tab Tab, 1 TAB PO BID for 30 Days, #60 TAB Prov:MINISTERIO NAILS 05/03/24 Gabapentin (Gabapentin) 300 Mg Cap, 300 MG PO DAILY for 30 Days, #30 CAP [facility]/24 Levofloxacin Hemihydrate (LEVOFLOXACIN) 750 Mg Tab, 750 MG PO DAILY for 5 Days, #5 TAB [facility]/03[facility]24 Spironolactone (Spironolactone) 50 Mg Tab, 50 MG PO DAILY for 30 Days, #30 TAB [facility]/03/24 Atorvastatin Calcium (ATORVASTATIN CALCIUM) 40 Mg Tab, 40 MG PO HS for 30 Days, #30 TAB [facility]/03/24 Levofloxacin Hemihydrate (LEVOFLOXACIN) 750 Mg Tab, 750 MG PO DAILY for 5 Days, #5 TAB [facility]/03/24 Furosemide (Lasix) 20 Mg Tb, 4 TAB PO BID for 30 Days, #240 TAB 3 [facility] 05/03/24 Spironolactone (Aldactone) 25 Mg Tab, 50 MG PO DAILY for 30 Days, #60 TAB [facility] 05/03/24 Gabapentin (Gabapentin) 300 Mg Cap, 300 MG PO DAILY for 30 Days, #30 CAP Prov:[facility] 05/03/24 Carvedilol (COREG) 3.125 Mg Tab, 6.25 MG PO Q12HR for 30 Days, #120 TAB [facility]/03/24 Atorvastatin Calcium (ATORVASTATIN CALCIUM) 20 Mg Tab, 40 MG PO HS for 30 Days, #30 TAB [facility] 05/03/24 Aspirin (Aspirin Low Dose) 81 Mg Tab, 81 MG PO DAILY for 30 Days, #30 TAB [facility]/03/24 Reported Medications Spironolactone (Aldactone) 50 Mg Tab, 1 TAB PO DAILY, #30 TAB 3 Refills 07/02/23 Carvedilol (Coreg) 3.125 Mg Tab, PO, TAB 06/28/22 Atorvastatin Calcium (Lipitor) 10 Mg Tab, PO, TAB 06/28/22 Gabapentin (Gabapentin) 300 Mg Cap, 300 MG PO DAILY for 30 Days, MG 09/02/21 Furosemide (Furosemide) 80 Mg Tab, 1 TAB PO BID, #180 TAB 3 Refills 09/02/21 Aspirin (Aspirin Low Dose) 81 Mg Tab, 1 TAB PO DAILY 04/30/21 Information Source: Patient Mode of Arrival: Ambulatory Past Medical History PAST MEDICAL HISTORY: Anxiety, CHF, DM, High Lipids, HTN Past Medical History (Other): NEUROPATHY Surgical History: Denies all surgeries Family History Family History: Unknown, Family hx of heart tha Social History Smoker: Quit Greater Than 1 Year, Cigarettes Alcohol: Denies ETOH Use Drugs: Denies Drug Use Lives In: Home Constitutional: denies: chills, diaphoresis, fatigue, fever, malaise, sweats, weakness, others EENTM: denies: blurred vision, double vision, ear bleeding, ear discharge, ear drainage, ear pain, ear ringing, eye pain, eye redness, hearing loss, mouth pain, mouth swelling, nasal discharge, nose bleeding, nose congestion, nose pain, photophobia, tearing, throat pain, throat swelling, voice changes, others Respiratory: denies: cough, hemoptysis, orthopnea, SOB at rest, shortness of breath, SOB with excertion, stridor, wheezing, others Cardiovascular: denies: chest pain, dizzy spells, diaphoresis, Dyspnea on exertion, edema, irregular heart beat, left arm pain, lightheadedness, palpitations, PND, syncope, others Gastrointestinal: denies: abdomen distended, abdominal pain, blood streaked bowels, constipated, diarrhea, dysphagia, difficulty swallowing, hematemesis, melena, nausea, poor appetite, poor fluid intake, rectal bleeding, rectal pain, vomiting, others Genitourinary: denies: burning, dysuria, flank pain, frequency, hematuria, incontinence, penile discharge, penile sore, pain, testicle pain, testicle swelling, urgency, others Neurological: denies: dizziness, fainting, headache, left sided numbness, left sided weakness, numbness, paresthesia, pre-existing deficit, right sided numbness, right sided weakness, seizure, speech problems, tingling, tremors, weakness, others Musculoskeletal: denies: back pain, gout, joint pain, joint swelling, muscle pain, muscle stiffness, neck pain, others Integumetry: reports: others (As stated in HPI) Allergic/Immunocompromised: denies: Difficulty Healing, Frequent Infections, Hives, Itching, others Hematologic/Lymphatic: denies: anemia, blood clots, easy bleeding, easy bruising, swollen glands, others Endocrine: denies: excessive hunger, excessive sweating, excessive thirst, excessive urination, flushing, intolerance to cold, intolerance to heat, unexplained weight gain, unexplained weight loss, others Psychiatric: denies: anxiety, bipolar disorder, depression, hopeless, panic disorder, schizophrenia, sleepless, suicidal, others Physical Exam General Appearance: No Apparent Distress HEENT: PERRL/EOMI Neck: Full Range of Motion, Non-Tender, Normal Respiratory: Chest Non-Tender, Lungs Clear, No Accessory Muscle Use, No Respiratory Distress, Normal Breath Sounds Cardiovascular: No Murmur, No Gallop, Regular Rate/Rhythm Breast Exam: Deferred Gastrointestinal: Non Tender, No Pulsatile Mass, Soft Genitalia: Deferred Pelvic: Deferred Rectal: Deferred Extremities: Normal capillary refill, Normal range of motion Neurologic: Alert, hub cutter II-XII nml as Tested, No Motor Deficits, Normal Affect, Normal Mood, No Sensory Deficits Cerebellar Function: Normal Reflexes: Normal Skin: Dry, Warm, Other (8 cm x 6cm healing stage 2 decubitus ulcer noted to sacrum without drainage/adipose tissue/tunneling noted) Lymphatic: No Adenopathy Was a procedure done? Was a procedure done?: No Sedation Sedation?: No Differential Diagnosis (INTG) Differential Diagnosis: Abscess Abscess: Gas Gangrene Differential Diagnosis: Osteomyelitis, Other (Stage III pressure ulcer) X-Ray, Labs, Meds, VS Vital Signs Date Time Temp Pulse Resp B/P (MAP) Pulse Ox O2 Delivery O2 Flow Rate FiO2 10/29/24 00:29 98.5 86 16 131/83 (99) 96 98.5 Current Medications Medications (Trade) Dose Ordered Sig/Conner Route Start Time Stop Time Status Last Admin Ceftriaxone Sodium (Rocephin) 1,000 mg ONCE ONCE IM 10/29/24 01:00 10/29/24 01:01 DC 10/29/24 01:11 Rocephin 1 g IM ordered Wound care/dressing change performed in ER Wound care/cleaning discussed and advised Advised to follow up in two days for wound check Patient states he will be 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 to 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 the following antibiotics below and take them as prescribed Advised to follow up with PCP in 1-2 days Patient verbalized understanding and agreeable with current plan of care Advised to return to ER immediately if symptoms worsen Time of 1ST Reevaluation: 00:24 Reevaluation 1ST: N/A Patient Education/Counseling: Diagnosis, Treatment, Prognosis, Need For Follow Up Family Education/Counseling: No Family Present Departure 1 Departure Time of Disposition: 00:52 Impression: Primary Impression: Sacral decubitus ulcer Qualified Codes: L89.152 - Pressure ulcer of sacral region, stage 2 Disposition: HOME / SELF CARE / HOMELESS Condition: Stable e-Prescriptions Amoxicillin & Pot Clavulanate (Amoxicillin/Potassium Cla) 875 Mg Tab 1 TAB PO BID for 7 Days, #14 TAB 0 Refills Prov: OZZIE BENNETT 10/29/24 Discharged With: Self Critical Care Note Critical Care Time?: No Stability Stability form required: No Heart Score Heart Score: Heart Score Response (Comments) Value History N/A 0 EKG N/A 0 Age N/A 0 Risk Factors N/A 0 Troponin N/A 0 Total 0 OZZIE BENNETT October 29, 2024 00:58
[2024-10-29] MEDS: cefTRIAXone SOD 1,000 MG VL IM ONE (01:11)
== END 2024-10-29 01:29 | disposition home or self-care (01) ==
LOC: ER 22:12
DX: L89.152 Pressure ulcer of sacral region, stage 2 (principal); F41.9 Anxiety disorder, unspecified; I11.0 Hypertensive heart disease with heart failure; I50.9 Heart failure, unspecified; E11.9 Type 2 diabetes mellitus without complications; Z79.899 Other long term (current) drug therapy
CPT/HCPCS: 87205; 96372; 99283; J0696

== ENCOUNTER 2024-10-29 12:42 | Inpatient (IN) | payer OTHER ==
[~2024-10-29] VITALS: Ht 177.8 cm; Wt 76.5 kg
[~2024-10-29 12:42] MED LIST changes: +AMOX875T4 PO
--- NOTE | 2024-10-29 14:04 | ED.PDOC ---
General HPI Comments 59-year-old male states that he is here in the ED with a chief complaint of request for dialysis catheter. Patient reports that he declined the procedure "the first time they asked me" but that now he wants the procedure. Patient reports that he is having flank pain and also is not urinating anymore. Course of Hospitalization for October 25 - October 27, 2024: "Jarocho Medrano is a 59-year-old male with past medical history of diabetes type 2, CHF, and neuropathy who presents to the ED with a coccyx wound that has pus draining for the last day. Patient reports that he was recently discharged from this hospital was supposed to go to a [facility] facility but however could not find when so now he is living in his car. He reports the coccyx wound as 10/10 numb and constant. Patient denies any recent trauma or injury, recent sick contacts, recent travels, fever or chills, chest pain, shortness of breath, wheezing, abdominal pain, nausea, vomiting, or diarrhea. Recent Course of hospitalization: Patient recently left the hospital [facility] on 10/24/2024 after a prolonged hospitalization including cardiopulmonary arrest, acute kidney injury requiring hemodialysis, as well as treatment for the patient's ejection fraction 10%. Patient was combative, noncompliant, and very rude with all hospital staff as well as initially improving and consenting for hemodialysis tunneled catheter, for which he decided to cancel on four different occasions. Patient was also found leaving [facility] smoking on previous admission, similar to this admission for which he was found somewhat lethargic this a.m. and wheeled back to his room by emergency room staff. Long discussion was made with the patient regarding plan of care. Given his noncompliance, repeat UDS being positive for amphetamine use, patient will be discharged home on guideline directed medical therapy for heart failure, anticoagulation for AFib, as well as social service consultation for referral to outpatient wound care. Preliminary wound cultures were reviewed. Patient is not septic, nor showing any signs of purulent out of control wound bed. White blood cell count now is normal. Patient will be discharged with Augmentin 875 mg p.o. b.i.d. x5 days. He is instructed to continue using foam wound dressing to sacral area and to be changed by the direction of outpatient wound care. Patient was also counseled on the need to stop using illicit drugs, smoking tobacco cigarettes, for which the patient states that he will continue to smoke what he wants to." Primary Diagnosis: -Sacral Wound Secondary diagnosis: -NSTEMI, probably type 2 secondary to amphetamine use -amphetamine use -cardiomyopathy -acute on chronic systolic heart failure with ejection fraction 10% -acute hypoxic respiratory failure -AFib/flutter with RVR -cardiogenic shock -acute kidney injury, vasomotor nephropathy -underlying CKD stage IIIb/four -leukocytosis, probable sirs -hypoglycemia -sacral decubitus ulcer HPI: POOR HISTORIAN. PATIENT IS HERE TO GET HIS DIALYSIS CATHETER IN PLACE. HE LEFT AMA AND REFUSED IN THE PAST BUT NOW HE demands and CONSENTS TO THE PROCEDURE. PATIENT DOES NOT MAKE ANY URINE. PATIENT HAS SOME MINIMAL LEFT FLANK DISCOMFORT. PATIENT IS HERE DEMANDING A DIALYSIS CATHETER. REVIEW OF SYSTEMS: CONSTITUTIONAL: DENIES ACUTE: FEVER, DIAPHORESIS, CHILLS, GENERALIZED WEAKNESS. HEAD: DENIES ACUTE: HEADACHE, PHOTOPHOBIA EYES: DENIES ACUTE: DOUBLE VISION, VISION LOSS, EYE PAIN, EYE DISCHARGE. EARS: DENIES ACUTE: TINNITUS, HEARING LOSS, EAR DISCHARGE, EAR PAIN, THROAT: DENIES ACUTE: SORE THROAT, SWELLING, DIFFICULTY SWALLOWING , PAIN WITH SWA LLOWING, CHANGE IN VOICE. NECK: DENIES ACUTE: NECK PAIN, NECK SWELLING, STIFF NECK. HEART: DENIES ACUTE : CHEST PAIN, PALPITATIONS, LUNGS: DENIES ACUTE: SOB, WHEEZING, COUGH, HEMOPTYSIS ABDOMEN: DENIES ACUTE: ABDOMINAL PAIN, NAUSEA, VOMITING, DIARRHEA, MELENA , HEMATEMESIS, HEMATOCHEZIA SKIN: DENIES ACUTE: RASH, REDNESS, LESIONS, ITCHINESS. EXTREMITIES: DENIES ACUTE: CALF PAIN, NUMBNESS, TINGLING, WEAKNESS, DENIES PAIN IN EXTREMITY. DENIES ACUTE: LOW BACK PAIN. NEURO: DENIES ACUTE: FOCAL NEUROLOGICAL DEFICIT, MOTOR OR SENSORY FOCAL NEUROLOGICAL DEFICIT, TREMORS, SEIZURE LIKE ACTIVITY, CONFUSION, DIZZINESS, CHANGE IN MENTAL STATUS, LOSS OF BOWEL OR BLADDER FUNCTION, CAUDA EQUINA LIKE SYMPTOMS. : DENIES ACUTE: DYSURIA, HEMATURIA, , INCREASE IN URINARY FREQUENCY. PSYCH: DENIES ACUTE: HALLUCINATION, SUICIDAL IDEATION, HOMICIDAL IDEATION. PHYSICAL EXAM: GENERAL: ---NO-----ACUTE DISTRESS, AWAKE AND ALERT. HEAD: NORMOCEPHALIC, ATRAUMATIC. NECK: SUPPLE, TRACHEA IS MIDLINE, NO SWELLING. THROAT: NORMAL PHONATION. EYES:, NO ERYTHEMA, NO PURULENT DISCHARGE, NO PROPTOSIS, NO ICTERUS. HEART: REGULAR RATE, REGULAR RHYTHM, NO SIGNIFICANT MURMUR APPRECIATED. LUNGS: NO APPARENT RESPIRATORY DISTRESS, ABLE TO SPEAK IN FULL SENTENCES. NO WHEEZING, NO RHONCHI, NO CRACKLES. NO STRIDORS CLEAR TO AUSCULTATION BILATERALLY. ABDOMEN: NON TENDER TO PALPATION, NON DISTENDED, SOFT, NO GUARDING, NO REBOUND, + BOWEL SOUNDS. NEURO: AWAKE, ALERT, ORIENTED TO NAME, SELF, SITUATION, FOLLOWS COMMANDS GCS=15. SPEECH IS NORMAL. SKIN: NO PETECHIA, NO PURPURA, NO CYANOSIS, NON-PALE, NOT JAUNDICE. LOWER EXTREMITIES: --TRACE BILATERAL - PITTING EDEMA NO DEFORMITY, NO FOCAL SWELLING, NO CALF TTP. MAKES EYE CONTACT. MOVES ALL FOUR EXTREMITIES. FACE: NO APPARENT FACIAL DROOP. MINIMAL LEFT CVA TENDERNESS TO PERCUSSION AMBULATING IN THE ED INDEPENDENTLY. ED COURSE: Chief Complaint: Flank Pain Time Seen by MD: 14:03 Primary Care Provider: PATRICE Becerril notes: Medications, Allergies Allergies: Coded Allergies: NO KNOWN ALLERGIES (Unverified , 09/24/22) Home Meds Active Scripts Amoxicillin & Pot Clavulanate (Amoxicillin/Potassium Cla) 875 Mg Tab, 1 TAB PO BID for 7 Days, #14 TAB 0 Refills Prov:OZZIE BENNETT 10/29/24 Apixaban Base (ELIQUIS) 5 Mg Tab, 5 MG PO BID for 30 Days, #60 TAB Prov:MARK LILLY ACID PAINTER 10/27/24 Carvedilol (COREG) 3.125 Mg Tab, 3.125 MG OR BID for 30 Days, #60 TAB Prov:SALMARK LAST ACID PAINTER 10/27/24 Furosemide (Lasix) 40 Mg Tab, 40 MG PO BID for 30 Days, #60 TAB Prov:MARK LILLY ACID PAINTER 10/27/24 Amoxicillin & Pot Clavulanate (AUGMENTIN TABLET) 875 Mg Tb, 875 MG PO BID for 5 Days, #10 TAB Prov:MARK LILLY ACID PAINTER 10/27/24 Aspirin (Aspirin Low Dose) 81 Mg Tab, 81 MG PO DAILY for 30 Days, #30 TAB [facility]/24 Carvedilol (Carvedilol) 6.25 Mg Tab, 1 TAB PO BID for 30 Days, #60 TAB 5 Refills [facility] 05/03/24 Furosemide (Furosemide 80 mg) 1 Tab Tab, 1 TAB PO BID for 30 Days, #60 TAB [facility] 05/03/24 Gabapentin (Gabapentin) 300 Mg Cap, 300 MG PO DAILY for 30 Days, #30 CAP Prov:[facility] 05/03/24 Levofloxacin Hemihydrate (LEVOFLOXACIN) 750 Mg Tab, 750 MG PO DAILY for 5 Days, #5 TAB Prov:[facility] [place] 05/03/24 Spironolactone (Spironolactone) 50 Mg Tab, 50 MG PO DAILY for 30 Days, #30 TAB Prov:[facility] 05/03/24 Atorvastatin Calcium (ATORVASTATIN CALCIUM) 40 Mg Tab, 40 MG PO HS for 30 Days, #30 TAB [facility] 05/03/24 Levofloxacin Hemihydrate (LEVOFLOXACIN) 750 Mg Tab, 750 MG PO DAILY for 5 Days, #5 TAB Prov[facility] 05/03/24 Furosemide (Lasix) 20 Mg Tb, 4 TAB PO BID for 30 Days, #240 TAB 3 Refills Prov[facility] 05/03/24 Spironolactone (Aldactone) 25 Mg Tab, 50 MG PO DAILY for 30 Days, #60 TAB Prov:[facility] 05/03/24 Gabapentin (Gabapentin) 300 Mg Cap, 300 MG PO DAILY for 30 Days, #30 CAP Prov:[facility] [place] 05/03/24 Carvedilol (COREG) 3.125 Mg Tab, 6.25 MG PO Q12HR for 30 Days, #120 TAB Prov:[facility] [place] 05/03/24 Atorvastatin Calcium (ATORVASTATIN CALCIUM) 20 Mg Tab, 40 MG PO HS for 30 Days, #30 TAB Prov:[facility] [place] 05/03/24 Aspirin (Aspirin Low Dose) 81 Mg Tab, 81 MG PO DAILY for 30 Days, #30 TAB Prov:MINISTERIO [facility] RESIDENT 05/03/24 Reported Medications Spironolactone (Aldactone) 50 Mg Tab, 1 TAB PO DAILY, #30 TAB 3 Refills 07/02/23 Carvedilol (Coreg) 3.125 Mg Tab, PO, TAB 06/28/22 Atorvastatin Calcium (Lipitor) 10 Mg Tab, PO, TAB 06/28/22 Furosemide (Furosemide) 80 Mg Tab, 1 TAB PO BID, #180 TAB 3 Refills 09/02/21 Aspirin (Aspirin Low Dose) 81 Mg Tab, 1 TAB PO DAILY 04/30/21 Information Source: Patient Mode of Arrival: Ambulatory Past Medical History PAST MEDICAL HISTORY: Anxiety, CHF, DM, High Lipids, HTN Surgical History: Denies all surgeries Family History Family History: Unknown, Family hx of heart tha Social History Smoker: Quit Greater Than 1 Year, Cigarettes Alcohol: Denies ETOH Use Drugs: Denies Drug Use Lives In: Home Was a procedure done? Was a procedure done?: No Differential Diagnosis Kidney stone (Female): N/A X-Ray, Labs, Meds, VS Vital Signs Date Time Temp Pulse Resp B/P (MAP) Pulse Ox O2 Delivery O2 Flow Rate FiO2 10/29/24 13:07 98.4 110 18 126/79 (95) 97 98.4 Lab Test 10/29/24 14:26 Range/Units White Blood Count 10.1 # 4.4-10.8 10^3/uL Red Blood Count 4.09 L 4.5-5.90 10^6/uL Hemoglobin 13.4 L 13.5-17.5 g/dL Hematocrit 39.5 #L 41.0-53.0 % Mean Corpuscular Volume 96.7 80.0-100.0 fL Mean Corpuscular Hemoglobin 32.8 H 28.0-32.0 pg Mean Corpuscular Hemoglobin Concent 33.9 32.0-36.0 g/dL Red Cell Distribution Width 15.4 H 11.8-14.3 % Platelet Count 325 140-450 10^3/uL Mean Platelet Volume 7.8 6.9-10.8 fL Neutrophils (%) (Auto) 69.6 37.0-80.0 % Lymphocytes (%) (Auto) 12.1 10.0-50.0 % Monocytes (%) (Auto) 10.2 0.0-12.0 % Eosinophils (%) (Auto) 7.3 H 0.0-7.0 % Basophils (%) (Auto) 0.8 0.0-2.0 % Neutrophils # (Auto) 7.1 1.6-8.6 10 ^3/uL Lymphocytes # (Auto) 1.2 0.4-5.4 10 ^3/uL Monocytes # (Auto) 1.0 0-1.3 10 ^3/uL Eosinophils # (Auto) 0.7 0-0.8 10 ^3/uL Basophils # (Auto) 0.1 0-0.2 10 ^3/uL Nucleated Red Blood Cells 0.0 % Prothrombin Time 11.0 9.3-11.8 sec Prothrombin Time INR 1.04 0.9-1.15 Activated Partial Thromboplast Time 27.9 24.5-34.5 SEC Sodium Level 142 136-145 mmol/L Potassium Level 4.7 3.5-5.1 mmol/L Chloride Level 102 98-107 mmol/L Carbon Dioxide Level 30 20-31 mmol/L Anion Gap 10 5-15 Blood Urea Nitrogen 58 H 9-23 mg/dL Creatinine 2.56 H 0.700-1.30 mg/dL Glomerular Filtration Rate Calc 28 >90 mL/min BUN/Creatinine Ratio 22.7 H 10.0-20.0 Serum Glucose 107 H 74-106 mg/dL Lactic Acid Level 1.2 0.4-2.0 mmol/L Calcium Level 11.0 H 8.7-10.4 mg/dL Total Bilirubin 0.8 0.2-1.0 mg/dL Aspartate Amino Transferase (AST) 33 13-40 U/L Alanine Aminotransferase (ALT) 36 7-40 U/L Alkaline Phosphatase 108 46-116 U/L Total Protein 8.6 H 5.7-8.2 g/dL Albumin 4.8 3.2-4.8 g/dL PATIENT: JOAQUIN MEDRANOT: [id number]: [id number] : 1965 LOC: OVERFLOW ROOM / BED: [facility] / A AGE / SEX: 59 / M ADM STATUS: ADM IN SERVICE [id number] ORDERING PHYSICIAN: OK IBRAHIM MD PROCEDURE(s): ABPL - CT AB PEL WO CON-NO ORAL OR IV REASON: flank pain r/o kidney stones ORDER NUMBER(s): [id number], ACCESSION NUMBER(s): [id number] Procedure: CT CT AB PEL WO CON-NO ORAL OR IV 10/29/2024 04:38 PM Indication: flank pain r/o kidney stones Comparison Study: [facility] on DOS: 07/03/22, [facility] on DOS: 09/02/21 Technique: Axial images were obtained and reformatted in coronal and sagittal planes. All CT scans at this medical facility are performed using dose modulation techniques as appropriate to a performed exam including the following: Automated exposure control was utilized; adjustment of the MA and/or KV according to patient size; and use of iterative reconstruction technique. CT Dose: CTDI volume is 7.46 mGy. Dose-length product is 479.31 mGy*cm FINDINGS: Lower Chest: Right basilar subsegmental atelectasis. Mild cardiomegaly. Hepatobiliary: Unremarkable. Spleen: Unremarkable. Pancreas: Unremarkable. Adrenal Glands: Unremarkable. tract: The kidneys are normal in size bilaterally without hydronephrosis or n ephrolithiasis. The urinary bladder is unremarkable. GI tract: The stomach is grossly normal in appearance. No evidence of small bowel obstruction. The large bowel is unremarkable. The appendix is normal. Lymphatics: No mesenteric, retroperitoneal or periportal lymphadenopathy. Vasculature: Aorta is normal in caliber. Scattered calcified plaques are noted. Pelvic Organs: Prostate is markedly enlarged. Bones/soft tissues: No acute abnormality. Multilevel degenerative changes of the lumbar spine noted. A subcentimeter sclerotic focus noted in the right acetabulum that is likely a benign bone island in the absence of known m alignancy. Small fat containing umbilical hernia is seen. Multilevel degenerative disc disease and posterior facet arthropathy of the lumbar spine noted. Other: None. IMPRESSION: 1. No CT evidence of acute abnormality in the abdomen and pelvis. Specifically, no urinary calculi or hydronephrosis. 2. Sigmoid diverticulosis without evidence of diverticulitis. 3. Moderate prostatic hyperplasia. Correlate with PSA. 4. Subcentimeter sclerotic right acetabular lesion likely a benign bone island in the absence of a known malignancy. Correlate with history. 5. Mild cardiomegaly. ATED BY: CLAUDETTE NAVRARO MD DICTATED DATE/TIME: 10/29/241740 SIGNED BY: CLAUDETTE NAVARRO MD SIGNED DATE/TIME: 10/29/241740 Time of 1ST Reevaluation: 14:32 Reevaluation 1ST: Unchanged Patient Education/Counseling: Diagnosis, Treatment Family Education/Counseling: No Family Present Comments Patient presented with the above HPI.--request for dialysis catheter placement----workup was initiated. patient was found with the above mentioned diagnosis. the following medications were ordered: please refer to order lists of meds and tests obtained by myself Dr. Rolon. Patient ED course and VS have been stabilized. Patient has been reassessed in the ED and remained in a stable condition. Pertinent incidental findings were discussed with the patient and/or family. Patient/family voices understanding and is agreeable with plan. Patient has been observed in the ED adequate length of time to insure improvement/stability. Escalation of care considered: Consideration of escalation to observation or admission Patient was ADMITTED to the medicine team for further evaluation and treatment of their presentation. All the reports of any imaging studies that were ordered by myself were reviewed by myself. Departure 1 Departure Time of Disposition: 15:18 Impression: Primary Impression: Chronic kidney disease Additional Impression: Encounter for dialysis catheter care Disposition: ADMITTED INPATIENT Admit to: Tele Condition: Guarded Discharged With: Self Critical Care Note Critical Care Time?: No I personally scribed for INDER ROLON DO ([email or web address]) on 10/29/24 at 14:04. Electronically submitted by Jarocho Milan ([email or web address]). I personally scribed for INDER ROLON DO ([email or web address]) on 10/29/24 at 14:05. Electronically submitted by Marvin Marroquin ([email or web address]). I personally scribed for INDER ROLON DO ([email or web address]) on 10/29/24 at 14:09. Electronically submitted by Marvin Marroquin ([email or web address]). I personally scribed for INDER ROLON DO ([email or web address]) on 10/29/24 at 20:54. Electronically submitted by Marvin Marroquin ([email or web address]). INDER ROLON DO October 29, 2024 14:04
[2024-10-29 14:51] LABS: Basophils # (auto) 0.1 10 ^3/uL (0-0.2); Basophils % (auto) 0.8 % (0.0-2.0); Eosinophils # (auto) 0.7 10 ^3/uL (0-0.8); Eosinophils % (auto) 7.3 % (0.0-7.0); Hematocrit 39.5 % (41.0-53.0); Hemoglobin 13.4 g/dL (13.5-17.5); Lymphocytes # (auto) 1.2 10 ^3/uL (0.4-5.4); Lymphocytes % (auto) 12.1 % (10.0-50.0); Mean Corpuscular Hemoglobin 32.8 pg (28.0-32.0); Mean Corpuscular Hgb Conc. 33.9 g/dL (32.0-36.0); Mean Corpuscular Volume 96.7 fL (80.0-100.0); Monocytes % (auto) 10.2 % (0.0-12.0); Neutrophils # (auto) 7.1 10 ^3/uL (1.6-8.6); Neutrophils % (auto) 69.6 % (37.0-80.0); Platelet Count (auto) 325 10^3/uL (140-450); Red Blood Cells 4.09 10^6/uL (4.5-5.90); Red Cell Distribution Width 15.4 % (11.8-14.3); White Blood Cell 10.1 10^3/uL (4.4-10.8)
[2024-10-29 15:04] LABS: INR 1.04 (0.9-1.15); Partial Thromboplastin Time 27.9 SEC (24.5-34.5)
[2024-10-29 15:06] LABS: Alanine Aminotransferase 36 U/L (7-40); Alkaline Phosphatase 108 U/L (46-116); Anion Gap 10 (5-15); Aspartate Aminotransferase 33 U/L (13-40); BUN/Creatinine Ratio 22.7 (10.0-20.0); Bilirubin, Total 0.8 mg/dL (0.2-1.0); Carbon Dioxide 30 mmol/L (20-31); Chloride 102 mmol/L (98-107); Potassium 4.7 mmol/L (3.5-5.1); Sodium 142 mmol/L (136-145)
[2024-10-29 15:08] LABS: Albumin 4.8 g/dL (3.2-4.8); Blood Urea Nitrogen 58 mg/dL (9-23); Glucose 107 mg/dL (74-106); Total Protein 8.6 g/dL (5.7-8.2)
[2024-10-29] MEDS ORDERED: ACETAMINOPHEN 325 MG TAB PO PRN (16:15)
[2024-10-29] MEDS ORDERED: DOCUSATE SOD 100 MG CAP PO PRN (16:15)
[2024-10-29] MEDS ORDERED: ONDANSETRON HCL 4 MG/2 ML VIAL IV PRN (16:15)
[2024-10-29] MEDS ORDERED: HYDROcodone-ACET 5/325MG TAB PO PRN (16:15)
--- NOTE | 2024-10-29 16:48 | DVHHP2 ---
Admitting Diagnosis: Hemodialysis catheter Anuric History of Present Illness 59-year-old male states that he is here in the ED with a chief complaint of request for dialysis catheter. Patient reports that he declined the procedure "the first time they asked me" but that now he wants the procedure. Patient reports that he is having flank pain and also is not urinating anymore. Course of Hospitalization for October 25 - October 27, 2024: "Jarocho Medrano is a 59-year-old male with past medical history of diabetes type 2, CHF, and neuropathy who presents to the ED with a coccyx wound that has pus draining for the last day. Patient reports that he was recently discharged from this hospital was supposed to go to a care home facility but however could not find when so now he is living in his car. He reports the coccyx wound as 10/10 numb and constant. Patient denies any recent trauma or injury, recent sick contacts, recent travels, fever or chills, chest pain, shortness of breath, wheezing, abdominal pain, nausea, vomiting, or diarrhea. Course of hospitalization: Patient recently left the hospital [facility] on 10/24/2024 after a prolonged hospitalization including cardiopulmonary arrest, acute kidney injury requiring hemodialysis, as well as treatment for the patient's ejection fraction 10%. Patient was combative, noncompliant, and very rude with all hospital staff as well as initially improving and consenting for hemodialysis tunneled catheter, for which he decided to cancel on four different occasions. Patient was also found leaving [facility] smoking on previous admission, similar to this admission for which he was found somewhat lethargic this a.m. and wheeled back to his room by emergency room staff. Long discussion was made with the patient regarding plan of care. Given his noncompliance, repeat UDS being positive for amphetamine use, patient will be discharged home on guideline directed medical therapy for heart failure, anticoagulation for AFib, as well as social service consultation for referral to outpatient wound care. Preliminary wound cultures were reviewed. Patient is not septic, nor showing any signs of purulent out of control wound bed. White blood cell count now is normal. Patient will be discharged with Augmentin 875 mg p.o. b.i.d. x5 days. He is instructed to continue using foam wound dressing to sacral area and to be changed by the direction of outpatient wound care. Patient was also counseled on the need to stop using illicit drugs, smoking tobacco cigarettes, for which the patient states that he will continue to smoke what he wants to." Primary Diagnosis: -Sacral Wound Secondary diagnosis: -NSTEMI, probably type 2 secondary to amphetamine use -amphetamine use -cardiomyopathy -acute on chronic systolic heart failure with ejection fraction 10% -acute hypoxic respiratory failure -AFib/flutter with RVR -cardiogenic shock -acute kidney injury, vasomotor nephropathy -underlying CKD stage IIIb/four -leukocytosis, probable sirs -hypoglycemia -sacral decubitus ulcer PAST MEDICAL HISTORY: Anxiety, CHF, DM, High Lipids, HTN Surgical History: Denies all surgeries Family History: Unknown, Family hx of heart tha Social History Smoker: Quit Greater Than 1 Year, Cigarettes Alcohol: Denies ETOH Use Drugs: Denies Drug Use Lives In: Home REVIEW OF SYSTEMS: CONSTITUTIONAL: DENIES ACUTE: FEVER, DIAPHORESIS, CHILLS, GENERALIZED WEAKNESS. HEAD: DENIES ACUTE: HEADACHE, PHOTOPHOBIA EYES: DENIES ACUTE: DOUBLE VISION, VISION LOSS, EYE PAIN, EYE DISCHARGE. EARS: DENIES ACUTE: TINNITUS, HEARING LOSS, EAR DISCHARGE, EAR PAIN, THROAT: DENIES ACUTE: SORE THROAT, SWELLING, DIFFICULTY SWALLOWING , PAIN WITH SWALLOWING, CHANGE IN VOICE. NECK: DENIES ACUTE: NECK PAIN, NECK SWELLING, STIFF NECK. HEART: DENIES ACUTE : CHEST PAIN, PALPITATIONS, LUNGS: DENIES ACUTE: SOB, WHEEZING, COUGH, HEMOPTYSIS ABDOMEN: DENIES ACUTE: ABDOMINAL PAIN, NAUSEA, VOMITING, DIARRHEA, MELENA , HEMATEMESIS, HEMATOCHEZIA SKIN: DENIES ACUTE: RASH, REDNESS, LESIONS, ITCHINESS. EXTREMITIES: DENIES ACUTE: CALF PAIN, NUMBNESS, TINGLING, WEAKNESS, DENIES PAIN IN EXTREMITY. DENIES ACUTE: LOW BACK PAIN. NEURO: DENIES ACUTE: FOCAL NEUROLOGICAL DEFICIT, MOTOR OR SENSORY FOCAL NEUROLOGICAL DEFICIT, TREMORS, SEIZURE LIKE ACTIVITY, CONFUSION, DIZZINESS, CHANGE IN MENTAL STATUS, LOSS OF BOWEL OR BLADDER FUNCTION, CAUDA EQUINA LIKE SYMPTOMS. : DENIES ACUTE: DYSURIA, HEMATURIA, , INCREASE IN URINARY FREQUENCY. PSYCH: DENIES ACUTE: HALLUCINATION, SUICIDAL IDEATION, HOMICIDAL IDEATION. Patient Family History: FH: heart attack G8 MOTHER Prostate carcinoma G8 FATHER Allergies: Coded Allergies: NO KNOWN ALLERGIES (Unverified , 09/24/22) Home Meds Active Scripts Amoxicillin & Pot Clavulanate (Amoxicillin/Potassium Cla) 875 Mg Tab, 1 TAB PO BID for 7 Days, #14 TAB 0 Refills Prov:OZZIE BENNETT 10/29/24 Apixaban Base (ELIQUIS) 5 Mg Tab, 5 MG PO BID for 30 Days, #60 TAB Prov:MARK LILLY [employer] COMPENSATION ANALYST 10/27/24 Carvedilol (COREG) 3.125 Mg Tab, 3.125 MG OR BID for 30 Days, #60 TAB Prov:MARK LILLY [employer] COMPENSATION ANALYST 10/27/24 Furosemide (Lasix) 40 Mg Tab, 40 MG PO BID for 30 Days, #60 TAB Prov:MARK LILLY H[employer] COMPENSATION ANALYST 10/27/24 Amoxicillin & Pot Clavulanate (AUGMENTIN TABLET) 875 Mg Tb, 875 MG PO BID for 5 Days, #10 TAB Prov:MARK LILLY [employer] COMPENSATION ANALYST 10/27/24 Aspirin (Aspirin Low Dose) 81 Mg Tab, 81 MG PO DAILY for 30 Days, #30 TAB [facility] 05/03/24 Carvedilol (Carvedilol) 6.25 Mg Tab, 1 TAB PO BID for 30 Days, #60 TAB 5 Refills Prov:[facility] 05/03/24 Furosemide (Furosemide 80 mg) 1 Tab Tab, 1 TAB PO BID for 30 Days, #60 TAB Prov:[facility] 05/03/24 Gabapentin (Gabapentin) 300 Mg Cap, 300 MG PO DAILY for 30 Days, #30 CAP Prov:[facility] 05/03/24 Levofloxacin Hemihydrate (LEVOFLOXACIN) 750 Mg Tab, 750 MG PO DAILY for 5 Days, #5 TAB Prov:[facility] 05/03/24 Spironolactone (Spironolactone) 50 Mg Tab, 50 MG PO DAILY for 30 Days, #30 TAB Prov:[facility] 05/03/24 Atorvastatin Calcium (ATORVASTATIN CALCIUM) 40 Mg Tab, 40 MG PO HS for 30 Days, #30 TAB Prov:[facility] 05/03/24 Levofloxacin Hemihydrate (LEVOFLOXACIN) 750 Mg Tab, 750 MG PO DAILY for 5 Days, #5 TAB Prov:[facility] 05/03/24 Furosemide (Lasix) 20 Mg Tb, 4 TAB PO BID for 30 Days, #240 TAB 3 Refills Prov:MINISTERIO NAILS 05/03/24 Spironolactone (Aldactone) 25 Mg Tab, 50 MG PO DAILY for 30 Days, #60 TAB Prov:[facility] 05/03/24 Gabapentin (Gabapentin) 300 Mg Cap, 300 MG PO DAILY for 30 Days, #30 CAP Prov:[facility]ISTERIO [facility]IL[facility] 05/03/24 Carvedilol (COREG) 3.125 Mg Tab, 6.25 MG PO Q12HR for 30 Days, #120 TAB Prov:[facility] 05/03/24 Atorvastatin Calcium (ATORVASTATIN CALCIUM) 20 Mg Tab, 40 MG PO HS for 30 Days, #30 TAB Prov:[facility]ISTERIO NAILS [facility] 05/03/24 Aspirin (Aspirin Low Dose) 81 Mg Tab, 81 MG PO DAILY for 30 Days, #30 TAB Prov:[facility]IO [facility] 05/03/24 Reported Medications Spironolactone (Aldactone) 50 Mg Tab, 1 TAB PO DAILY, #30 TAB 3 Refills 07/02/23 Carvedilol (Coreg) 3.125 Mg Tab, PO, TAB 06/28/22 Atorvastatin Calcium (Lipitor) 10 Mg Tab, PO, TAB 06/28/22 Gabapentin (Gabapentin) 300 Mg Cap, 300 MG PO DAILY for 30 Days, MG 09/02/21 Furosemide (Furosemide) 80 Mg Tab, 1 TAB PO BID, #180 TAB 3 Refills 09/02/21 Aspirin (Aspirin Low Dose) 81 Mg Tab, 1 TAB PO DAILY 04/30/21 Current Medications Current Medications Medications (Trade) Dose Ordered Sig/Conner Route PRN Reason Start Time Stop Time Status Last Admin Sodium Chloride (Saline Lock Ns) 10 ml Q8HR IV 10/29/24 22:00 UNV Docusate Sodium (Colace Capsule) 100 mg BIDPRN PRN PO FOR CONSTIPATION 10/29/24 16:15 UNV Acetaminophen (Tylenol Tablet) 650 mg Q6HP PRN PO PAIN SCALE 1-3 OR TEMP>100.4 10/29/24 16:15 UNV Acetaminophen/ Hydrocodone Bitart (Coyle 5/325MG Tab) 1 tab Q4HP PRN PO MODERATE PAIN (4-6 PAIN SCALE) 10/29/24 16:15 UNV Ondansetron HCl (Zofran) 4 mg Q4HP PRN IV NAUSEA / VOMITING 10/29/24 16:15 UNV Vital Signs Vital Signs Date Time Temp Pulse Resp B/P (MAP) Pulse Ox O2 Delivery O2 Flow Rate FiO2 10/29/24 13:07 98.4 110 18 126/79 (95) 97 98.4 Physical Exam Generally 59 years old male, well nourished well developed. No apparent distress HEENT-atraumatic, normocephalic. Heart-regular rate and rhythm Lungs clear to auscultate bilaterally Abdomen soft, nontender nondistended Musculoskeletal-no cyanosis, positive pedal edema Neuro-AO x3, no focal deficits Results Labs Test 10/29/24 14:26 Range/Units White Blood Count 10.1 # 4.4-10.8 10^3/uL Red Blood Count 4.09 L 4.5-5.90 10^6/uL Hemoglobin 13.4 L 13.5-17.5 g/dL Hematocrit 39.5 #L 41.0-53.0 % Mean Corpuscular Volume 96.7 80.0-100.0 fL Mean Corpuscular Hemoglobin 32.8 H 28.0-32.0 pg Mean Corpuscular Hemoglobin Concent 33.9 32.0-36.0 g/dL Red Cell Distribution Width 15.4 H 11.8-14.3 % Platelet Count 325 140-450 10^3/uL Mean Platelet Volume 7.8 6.9-10.8 fL Neutrophils (%) (Auto) 69.6 37.0-80.0 % Lymphocytes (%) (Auto) 12.1 10.0-50.0 % Monocytes (%) (Auto) 10.2 0.0-12.0 % Eosinophils (%) (Auto) 7.3 H 0.0-7.0 % Basophils (%) (Auto) 0.8 0.0-2.0 % Neutrophils # (Auto) 7.1 1.6-8.6 10 ^3/uL Lymphocytes # (Auto) 1.2 0.4-5.4 10 ^3/uL Monocytes # (Auto) 1.0 0-1.3 10 ^3/uL Eosinophils # (Auto) 0.7 0-0.8 10 ^3/uL Basophils # (Auto) 0.1 0-0.2 10 ^3/uL Nucleated Red Blood Cells 0.0 % Prothrombin Time 11.0 9.3-11.8 sec Prothrombin Time INR 1.04 0.9-1.15 Activated Partial Thromboplast Time 27.9 24.5-34.5 SEC Sodium Level 142 136-145 mmol/L Potassium Level 4.7 3.5-5.1 mmol/L Chloride Level 102 98-107 mmol/L Carbon Dioxide Level 30 20-31 mmol/L Anion Gap 10 5-15 Blood Urea Nitrogen 58 H 9-23 mg/dL Creatinine 2.56 H 0.700-1.30 mg/dL Glomerular Filtration Rate Calc 28 >90 mL/min BUN/Creatinine Ratio 22.7 H 10.0-20.0 Serum Glucose 107 H 74-106 mg/dL Lactic Acid Level 1.2 0.4-2.0 mmol/L Calcium Level 11.0 H 8.7-10.4 mg/dL Total Bilirubin 0.8 0.2-1.0 mg/dL Aspartate Amino Transferase (AST) 33 13-40 U/L Alanine Aminotransferase (ALT) 36 7-40 U/L Alkaline Phosphatase 108 46-116 U/L Total Protein 8.6 H 5.7-8.2 g/dL Albumin 4.8 3.2-4.8 g/dL Primary Diagnosis CIARAN on CKD on hemodialysis Anuric Plan Patient left AMA when hemodialysis was supposed to be place Patient become anuric for past few days have agreeable with the hemodialysis catheter placement NPO Nephrology consult Consult for hemodialysis catheter placement Monitor urine output Strict in and out Resume home meds NPO after midnight Hold anticoagulation medication full code SCD for DVT prophylaxis PPI for GI prophylaxis Plan discussed with: Patient Problems List: (1) Encounter for dialysis catheter care Status: Acute (2) Chronic kidney disease Status: Acute Date of Service: October 29, 2024 Billing Provider: [place] IBRAHIM MD Common Visit Codes: 32010-[id number] INP/OBS CARE (MOD) OK IBRAHIM MD October 29, 2024 16:48
--- NOTE | 2024-10-29 17:44 | DVH ---
Procedure: CT CT AB PEL WO CON-NO ORAL OR IV 10/29/2024 04:38 PM Indication: flank pain r/o kidney stones Comparison Study: [facility] on DOS: 07/03/22, [facility] on DOS: 09/02/21 Technique: Axial images were obtained and reformatted in coronal and sagittal planes. All CT scans at this medical facility are performed using dose modulation techniques as appropriate to a performed e xam including the following: Automated exposure control was utilized; adjustment of the MA and/or KV according to patient size; and use of iterative reconstruction technique. CT Dose: CTDI volume is 7.4 6 mGy. Dose-length product is 479.31 mGy*cm FINDINGS: Lower Chest: Right basilar subsegmental atelectasis. Mild cardiomegaly. Hepatobiliary: Unremarkable. Spleen: Unremarkable. Pancreas: Unremarkable. Adrenal Glands: Unremarkable. tract: The kidneys are normal in size bilaterally without hydronephrosis or nephrolithiasis. The u rinary bladder is unremarkable. GI tract: The stomach is grossly normal in appearance. No evidence of small bowel obstruction. The la rge bowel is unremarkable. The appendix is normal. Lymphatics: No mesenteric, retroperitoneal or periportal lymphadenopathy. Vasculature: Aorta is normal in caliber. Scattered calcified plaques are noted. Pelvic Organs: Prostate is markedly enlarged. Bones/soft tissues: No acute abnormality. Multilevel degenerative changes of the lumbar spine noted. A subcentimeter sclerotic focus noted in the right acetabulum that is likely a benign bone island in the absence of known malignancy. Small fat containing umbilical hernia is seen. Multilevel degenerati ve disc disease and posterior facet arthropathy of the lumbar spine noted. Other: None. IMPRESSION: 1. No CT evidence of acute abnormality in the abdomen and pelvis. Specifically, no urinary calculi o r hydronephrosis. 2. Sigmoid diverticulosis without evidence of diverticulitis. 3. Moderate prostatic hyperplasia. Correlate with PSA. 4. Subcentimeter sclerotic right acetabular lesion likely a benign bone island in the absence of a kn own malignancy. Correlate with history. 5. Mild cardiomegaly.
[2024-10-29 18:43] LABS: Basophils # (auto) 0.1 10 ^3/uL (0-0.2); Basophils % (auto) 0.8 % (0.0-2.0); Eosinophils # (auto) 0.7 10 ^3/uL (0-0.8); Eosinophils % (auto) 6.4 % (0.0-7.0); Hematocrit 38.1 % (41.0-53.0); Hemoglobin 12.9 g/dL (13.5-17.5); Lymphocytes # (auto) 1.6 10 ^3/uL (0.4-5.4); Lymphocytes % (auto) 14.5 % (10.0-50.0); Mean Corpuscular Hemoglobin 32.7 pg (28.0-32.0); Mean Corpuscular Hgb Conc. 33.9 g/dL (32.0-36.0); Mean Corpuscular Volume 96.3 fL (80.0-100.0); Monocytes # (auto) 1.3 10 ^3/uL (0-1.3); Neutrophils # (auto) 7.2 10 ^3/uL (1.6-8.6); Neutrophils % (auto) 66.3 % (37.0-80.0); Platelet Count (auto) 323 10^3/uL (140-450); Red Blood Cells 3.96 10^6/uL (4.5-5.90); Red Cell Distribution Width 15.1 % (11.8-14.3); White Blood Cell 10.9 10^3/uL (4.4-10.8)
[2024-10-29 22:30] VITALS: BP 113/65; PULSE 84; RESP 17; TEMP 98.2; O2SAT 98
[2024-10-29] MEDS: SODIUM CHLOR 0.9% PF (SALINE LOCK) 10ML VIAL/SYR IV SCH (23:08)
[2024-10-30 00:18] VITALS: BP 113/65; PULSE 84; RESP 17; TEMP 98.2; O2SAT 98
[2024-10-30 01:00] VITALS: BP 131/80; PULSE 86; RESP 16; TEMP 97.9; O2SAT 97
== END 2024-10-30 05:40 | disposition left against medical advice (07) | DRG 469 ==
LOC: ER 12:44 → OVERFLOW 16:08 → WEST WING 22:19
PROVIDERS: ADMIT Internal Medicine; ATTEND Internal Medicine
DX: N17.9 Acute kidney failure, unspecified (principal); I42.9 Cardiomyopathy, unspecified; E11.22 Type 2 diabetes mellitus with diabetic chronic kidney disease; E11.40 Type 2 diabetes mellitus with diabetic neuropathy, unspecified; Z99.2 Dependence on renal dialysis; N18.4 Chronic kidney disease, stage 4 (severe); F41.9 Anxiety disorder, unspecified; N40.0 Benign prostatic hyperplasia without lower urinary tract symptoms; I48.91 Unspecified atrial fibrillation; K57.30 Diverticulosis of large intestine without perforation or abscess without bleeding; F17.210 Nicotine dependence, cigarettes, uncomplicated; Z53.29 Procedure and treatment not carried out because of patient's decision for other reasons; Z91.199 Patient's noncompliance with other medical treatment and regimen due to unspecified reason; Z82.49 Family history of ischemic heart disease and other diseases of the circulatory system; Z80.42 Family history of malignant neoplasm of prostate
CPT/HCPCS: 36415; 74176; 80053; 83605; 85025; 85610; 85730; G0378